=== PATIENT | male | born 1950 | race African-American/Black ===

== ENCOUNTER → 2016-06-29 | Outpatient (CLI) | payer BC ==
[~2016-06-29] MED LIST: ASPCH81X PO; CLOP1TAB15 PO; CYM/30 PO; DILT-113 PO; DUTA0.5C PO; EPLE25TA3 PO; EZET10TA63 PO; FOLI1TAB7 PO; FRS/40 PO; INSDGI SC; ISOS120T5 PO; LACT10SO17 PO; LIDO2SOL17 EXT; LISI-461 PO; LORA-741 PO; LSN10 PO; MAGNESIUM PO; METO50TA16 PO; MULT-506 PO; NITRSPR6 SL; OMEG10007 PO; PANT40TA PO; POTA20TA16 PO; RIFA550T2 PO; TAMS0.4C38 PO; WARF2TAB8 PO; WARF5TAB7 PO
[2016-06-29 12:51] LABS: CHOLESTEROL/HDL RATIO 3.2
== END | disposition home or self-care (01) ==
LOC: C.LAB 10:59
PROVIDERS: ATTEND Internal Medicine Cardiovascular Disease
DX: E78.00 Pure hypercholesterolemia, unspecified (principal)

== ENCOUNTER 2016-07-01 11:45 | Inpatient (IN) | payer BC, OTHER ==
[~2016-07-01] VITALS: Ht 182.9 cm; Wt 141.2 kg
[~2016-07-01 11:45] MED LIST changes: -LACT10SO17 PO; -LISI-461 PO; -LSN10 PO; -RIFA550T2 PO
[2016-07-01] MEDS ORDERED: ASPIRIN 81 MG CHEW PO STA (12:06)
--- NOTE | 2016-07-01 12:15 | EMERGENCY ROOM VISIT NOTE ---
History Report prepared by [place]: Ileana Guzman Under the Supervision of: Dr. Liz Art M.D. First contact with patient: 11:56 Chief Complaint: CHEST PAIN Stated Complaint: CHEST AND LEFT ARM PAIN History of Present Illness The patient is a 65 year old male who presents to the Emergency Room with complaints of intermittent left sided chest pain that began three days ago. He currently rates his discomfort as a 2/10 in severity. The patient states that he has been diagnosed with cirrhosis of the liver and encephalopathy, but denies it being from drinking. He states that he has had diffuse abdominal discomfort which he attributes to his liver disease. The patient states that three days ago when he developed the left chest pain and left arm pain, he also attributed it to his liver disease, but notes that today his chest discomfort worsened. 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 He states that they referred him to the emergency department for further evaluation and care. The patient states that he has been experiencing nausea and vomiting with the pain, but denies any shortness of breath. He additionally notes that his pain radiates to his back. The patient notes a history of diabetes and atrial fibrillation, noting that he is on Coumadin. He denies any history of high cholesterol or hepatitis. The patient denies any shortness of breath or fever, and denies his pain coming on with exertion. He denies being a smoker. The patient denies taking any aspirin today. He states that he has an appointment about being placed on a liver transplant list. Source of History: patient Onset: three days ago Position: chest (left) Symptom Intensity: 2/10 Timing: intermittent Associated Symptoms: + abdominal pain, + back pain, + nausea, + vomiting, No SOB Note: Associated Symptoms: left arm pain Review of Systems See HPI for pertinent positives & negatives. A total of 10 systems reviewed and were otherwise negative. 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 (10) Postoperative wound infection Family History Stroke FATHER MOTHER Social History Smoking Status: Former Smoker Alcohol Use: none Marital Status: Occupation Status: employed Current/Historical Medications Scheduled Aspirin (Aspirin Chewable), 81 MG PO QAM Clopidogrel (Plavix), 75 MG PO QAM Diltiazem Hcl Ext Rel (Tiazac), 180 MG PO QAM Duloxetine Hcl (Cymbalta), 30 MG PO QAM Dutasteride (Avodart), 0.5 MG PO HS Eplerenone (Eplerenone), 1 TAB PO QAM Ezetimibe (Zetia), 10 MG PO HS Fish Oil ([place]-3), 1 CAP PO BID Folic Acid (Folvite), 1 MG PO DAILY AFTERNOON Furosemide (Lasix), 40 MG PO QAM Insulin Glargine (Lantus), 10 UNITS SC HS Isosorbide Mononitrate Ext Rel (Imdur Ext Rel), 120 MG PO QAM Lactulose (Chronulac), 15 ML PO DAILY Lisinopril (Zestril), 10 MG PO QAM Lisinopril (Lisinopril), 10 MG PO DAILY Metoprolol Tartrate (Lopressor) (Lopressor), 50 MG PO TID Multivitamin (Multivitamin), 1 TAB PO QAM Pantoprazole (Protonix), 40 MG PO QAM Potassium Ext Rel (Klor-Con), 20 MEQ PO QAM Rifaximin (Xifaxan), 550 MG PO BID Tamsulosin Hcl (Flomax), 0.4 MG PO HS Warfarin Sod (Jantoven), 7.5 MG PO 4XWK Warfarin Sod (Jantoven), 10 MG PO 3XWK [Magnesium], 1 TAB PO DAILY AFTERNOON Scheduled PRN Lidocaine Viscous 2% Soln (Viscous Lidocaine 2% Soln), 1 DOSE EXT QID PRN for Pain Lorazepam (Ativan), 0.5 MG PO BID PRN for Anxiety Nitroglycerin (Nitrolingual 60 [place]), 1 SPRAY SL DIRECTED PRN for Chest Pain Allergies Coded Allergies: Simvastatin (Verified Adverse Reaction, Intermediate, GI UPSET- OK WITH LIPITOR, 07/01/16) Spironolactone (Verified Adverse Reaction, Mild, NIPPLES HURT, 07/01/16) Pioglitazone (Verified Adverse Reaction, Unknown, DOESN'T REMEMBER, ) Physical Exam Vital Signs Date Time Temp Pulse Resp B/P Pulse Ox O2 Delivery O2 Flow Rate FiO2 07/01/16 14:55 52 23 96 07/01/16 14:50 53 24 97 07/01/16 14:45 58 19 97 07/01/16 14:43 58 20 161/88 96 Room Air 07/01/16 14:41 161/88 07/01/16 14:40 58 22 96 07/01/16 14:30 55 16 97 07/01/16 14:29 195/103 07/01/16 14:25 52 13 96 07/01/16 14:25 97 Room Air 07/01/16 14:20 50 29 97 07/01/16 14:15 58 20 07/01/16 14:10 52 13 96 07/01/16 14:05 52 16 96 07/01/16 14:00 52 13 96 07/01/16 13:59 167/78 07/01/16 13:55 50 16 175/86 97 Room Air 07/01/16 13:55 52 14 97 07/01/16 13:54 175/86 07/01/16 13:40 50 21 99 07/01/16 13:35 49 13 07/01/16 13:30 51 12 92 07/01/16 13:25 48 15 97 07/01/16 13:20 52 16 96 07/01/16 13:15 47 12 97 07/01/16 13:10 50 13 95 07/01/16 12:44 50 07/01/16 12:40 46 13 97 07/01/16 12:39 174/100 07/01/16 12:37 51 15 193/99 96 Room Air 174/100 07/01/16 12:35 46 12 193/99 07/01/16 12:34 96 Room Air 07/01/16 11:59 176/88 07/01/16 11:48 36.8 60 18 209/117 96 Room Air Physical Exam Vital signs reviewed. General: Obese. Well-appearing male, in no significant distress. HEENT: No scleral icterus, PERRLA, neck supple. Atraumatic. Cardiovascular: Irregular rate controlled and rhythm, no extra sounds. Pulmonary: Clear to auscultation bilaterally, normal work of breathing. Abdomen: Soft, nontender, nondistended, positive bowel sounds. Musculoskeletal: Atraumatic, no peripheral edema. Neurologic: Patient awake alert and oriented x 3, full strength in all 4 extremities. Cranial nerves 2 through 12 grossly intact. Skin: Warm, dry, no rash Medical Decision & Procedures ER Provider Diagnostic Interpretation: X-ray results as stated below per my interpretation and radiologist interpretation. Other radiology results as stated below per my review and radiologist interpretation: CHEST ONE VIEW PORTABLE CLINICAL HISTORY: Atypical chest pain. COMPARISON STUDY: 06/24/2015 FINDINGS: The study is limited from a technical standpoint. The heart is enlarged. There are postsurgical changes of a midline sternotomy. There is prominence the upper lobe vessels suggesting pulmonary venous hypertension.[ There is no focal pulmonary consolidation. No pleural effusions are visualized. IMPRESSION: Cardiomegaly and suspected pulmonary venous hypertension. No evidence of focal pulmonary consolidation Electronically signed by: Oscar Sheppard M.D. 07/01/2016 12:20 PM Dictated Date/Time: 07/01/2016 12:19 PM CHEST CTA for PULMONARY ARTERIES CT DOSE: 616.56 mGy.cm HISTORY: Atypical chest pain. TECHNIQUE: Multiaxial CT images of the chest were performed following the intravenous administration of contrast to evaluate the pulmonary arteries. Maximal intensity projection images were also obtained. COMPARISON STUDY: Chest 07/01/2016. FINDINGS: The heart remains enlarged. No pleural or pericardial effusions. Normal caliber thoracic aorta. There is no contrast within the aorta to evaluate for a dissection. Nondiagnostic evaluation of the bilateral lower lobe subsegmental pulmonary arteries due to the poor opacification motion artifact. Otherwise, the remaining pulmonary arteries show no filling defects to suggest pulmonary embolus. Nodular and atrophic liver consistent with cirrhosis. Stable 2.1 cm lesion within the right hepatic dome best in image 38 of 116. The visualized spleen and adrenal glands are unremarkable. There is a partially visualized left renal cyst. No mediastinal or hilar lymphadenopathy. Poststernotomy changes. No pneumothorax. The central airways are patent. A 3 mm nodule within the left lung apex on image 102. A 4 mm nodule within the lingula on image 39. No focal lung consolidations to suggest pneumonia. Bibasilar linear densities favor mild subsegmental atelectasis. IMPRESSION: 1. No evidence for pulmonary embolus with limitations as described above. 2. Cardiomegaly. 3. Cirrhosis. 4. A total of 2 subcentimeter indeterminate pulmonary nodules within the left upper lobe with the largest measuring 4 mm. Please refer to the chart below for recommended follow-up. Please refer to below summary of Fleischner criteria recommendations for follow-up of incidental CT nodules (Bobby Rao, Guidelines for management of small pulmonary nodules detected on CT scans: A statement from the Fleischner Society, Radiology 237: [phone].) Low Risk Patient: Minimal or no smoking or other known risk factors for malignancy <=4 mm: No follow-up needed. >4-6 mm: Initial follow-up CT at 12 months; if unchanged, no further follow-up. >6-8 mm: Initial follow-up CT at 6-12 months then at 18-24 months if no change. >8 mm: Follow-up CT at \R\3, 9, 24 months, or PET and/or biopsy. High Risk Patient: History of smoking or other known risk factors <=4 mm: Follow-up at 12 months; if unchanged, no further follow-up. >4-6 mm: Initial follow-up CT at 6-12 months then at 18-24 months if no change. >6-8 mm: Initial follow-up CT at 3-6 months then at 9-12 and 24 months if no change. >8 mm: Same as low risk patient. Note: Nodule size measured as average of length and width. Ground glass or partly solid nodules may require longer follow-up to exclude indolent adenocarcinoma. Electronically signed by: Mane Dsouza M.D. 07/01/2016 1:37 PM Dictated Date/Time: 07/01/2016 1:18 PM Laboratory Results Test 07/01/16 11:55 07/01/16 12:12 Hepatitis C Antibody Screen NEG (NEG) Bedside D-Dimer > 450 ng/mlFEU (0-450) Bedside Troponin I 0.010 ng/ml (0-0.045) Laboratory results per my review. Medications Administered Medications (Trade) Dose Ordered Sig/Beata Route Start Time Stop Time Status Last Admin Dose Admin Aspirin (Aspirin Chew) 324 mg NOW STAT PO 07/01/16 12:06 07/01/16 12:08 DC 07/01/16 12:17 324 MG Hydralazine HCl (HydrALAZINE INJ) 10 mg NOW STAT IV. 07/01/16 13:44 07/01/16 13:45 DC 07/01/16 14:05 10 MG ECG Indication: chest pain Rate (beats per minute): 50 Rhythm: atrial fibrillation Findings: no acute ischemic change, no ectopy ED Course 1200: Past medical records reviewed. The patient was evaluated in room A9B. A complete history and physical examination was performed. 1206: Ordered Aspirin 324 mg PO. 1344: Ordered Hydralazine HCl 10 mg IV. 1345: I reevaluated the patient and he is resting comfortably. I discussed the exam findings with him and I discussed the treatment plan. He verbalized complete understanding and agreement. He will be evaluated for further treatment. 1352: I discussed the patient's case with GIA Ovalle. He is going to evaluate the patient for further treatment. 1400: Per Dr. Shaw, he is currently in Atrial Flutter. Medical Decision DDX:Acute coronary syndrome, pulmonary embolus, aortic dissection, musculoskeletal pain, pneumonia, pleural effusion, pneumothorax This pt was evaluated and appeared to be in no distress. IV access was obtained and lab work was drawn. PT was medicated with aspirin 324 mg po and IV hydralazine for hypertension. EKG reveals no acute ischemia, rate controlled atrial flutter. Lab work reveals a negative troponin but a positive d-dimer. CT chest was ordered and is negative for PE. Given pt's HTN, CP and extensive medical history pt was evaluated by the hospitalist service for further management. Consults Time Called: 1344 Consulting Physician: GIA Ovalle Returned Call: 1352 I discussed the patient's case with GIA Ovalle. He is going to evaluate the patient for further treatment. Impression Primary Impression: Constricting chest pain often radiating down left upper extremity Scribe Attestation The scribe's documentation has been prepared under my direction and personally reviewed by me in its entirety. I confirm that the note above accurately reflects all work, treatment, procedures, and medical decision making performed by me. Departure Information Dispostion Being Evaluated By Hospitalist Prescriptions Lisinopril (Lisinopril) 10 Mg Tab 10 MG PO DAILY for 90 Days, #90 TAB Prov: Ervin Carey MD 07/02/16 Lisinopril (Zestril) 10 Mg Tab 10 MG PO QAM for 30 Days, #30 TAB Prov: Ervin Carey MD 07/02/16 Referrals Rona Dominguez DO (PCP)
[2016-07-01 12:20] LABS: MEAN CORPUSCULAR HGB CONC 34.5 g/dl (32-36)
[2016-07-01 12:22] LABS: HEMATOCRIT 41.7 % (42-52); MEAN CELL VOLUME 74.1 fL (80-100); MEAN CORPUSCULAR HEMOGLOBIN 25.6 pg (25-34); RED BLOOD COUNT 5.63 M/uL (4.7-6.1); WHITE BLOOD COUNT 3.82 K/uL (4.8-10.8)
--- NOTE | 2016-07-01 12:22 | DIAGNOSTIC IMAGING REPORT ---
CHEST ONE VIEW PORTABLE CLINICAL HISTORY: Atypical chest pain. COMPARISON STUDY: 06/24/2015 FINDINGS: The study is limited from a technical standpoint. The heart is enlarged. There are postsurgical changes of a midline sternotomy. There is prominence the upper lobe vessels suggesting pulmonary venous hypertension.[ There is no focal pulmonary consolidation. No pleural effusions are visualized. IMPRESSION: Cardiomegaly and suspected pulmonary venous hypertension. No evidence of focal pulmonary consolidation Electronically signed by: Oscar Sheppard M.D. 07/01/2016 12:20 PM Dictated Date/Time: 07/01/2016 12:19 PM
[2016-07-01 12:31] LABS: BUN/CREATININE RATIO 8.6 (10-20); CALCIUM 8.9 mg/dl (8.5-10.1); CREATININE 0.86 mg/dl (0.60-1.40); MAGNESIUM 1.9 mg/dl (1.8-2.4)
[2016-07-01 12:33] LABS: INR 2.3 (0.9-1.1); PARTIAL THROMBOPLASTIN RATIO 1.4; PROTHROMBIN TIME (PATIENT) 25.2 SECONDS (9.0-12.0)
[2016-07-01 12:36] LABS: CKMB/CK RATIO 0.4 (0-3.0)
[2016-07-01] MEDS ORDERED: OPTIRAY 320 IV PRN (12:45)
[2016-07-01 12:58] LABS: BASO % 0.3 %; BASO ABS # 0.01 K/uL (0-0.2); COMPLETE YES; EOS % 2.4 %; LYMPH % 48.7 %; LYMPH ABS # 1.86 K/uL (1.2-3.4); MONO % 8.1 %; NEUT % 40.5 %; PLATELET COUNT 105 K/uL (130-400)
[2016-07-01 12:59] LABS: PLT ESTIMATE DECREASED
[2016-07-01] MEDS ORDERED: LACT10SO17 PO (13:31)
[2016-07-01] MEDS ORDERED: RIFA550T2 PO (13:32)
--- NOTE | 2016-07-01 13:39 | DIAGNOSTIC IMAGING REPORT ---
CHEST CTA for PULMONARY ARTERIES CT DOSE: 616.56 mGy.cm HISTORY: Atypical chest pain. TECHNIQUE: Multiaxial CT images of the chest were performed following the intravenous administration of contrast to evaluate the pulmonary arteries. Maximal intensity projection images were also obtained. COMPARISON STUDY: Chest 07/01/2016. FINDINGS: The heart remains enlarged. No pleural or pericardial effusions. Normal caliber thoracic aorta. There is no contrast within the aorta to evaluate for a dissection. Nondiagnostic evaluation of the bilateral lower lobe subsegmental pulmonary arteries due to the poor opacification motion artifact. Otherwise, the remaining pulmonary arteries show no filling defects to suggest pulmonary embolus. Nodular and atrophic liver consistent with cirrhosis. Stable 2.1 cm lesion within the right hepatic dome best in image 38 of 116. The visualized spleen and adrenal glands are unremarkable. There is a partially visualized left renal cyst. No mediastinal or hilar lymphadenopathy. Poststernotomy changes. No pneumothorax. The central airways are patent. A 3 mm nodule within the left lung apex on image 102. A 4 mm nodule within the lingula on image 39. No focal lung consolidations to suggest pneumonia. Bibasilar linear densities favor mild subsegmental atelectasis. IMPRESSION: 1. No evidence for pulmonary embolus with limitations as described above. 2. Cardiomegaly. 3. Cirrhosis. 4. A total of 2 subcentimeter indeterminate pulmonary nodules within the left upper lobe with the largest measuring 4 mm. Please refer to the chart below for recommended follow-up. Please refer to below summary of Fleischner criteria recommendations for follow-up of incidental CT nodules (Bobby Rao, Guidelines for management of small pulmonary nodules detected on CT scans: A statement from the Fleischner Society, Radiology 237: [id number].) Low Risk Patient: Minimal or no smoking or other known risk factors for malignancy <=4 mm: No follow-up needed. >4-6 mm: Initial follow-up CT at 12 months; if unchanged, no further follow-up. >6-8 mm: Initial follow-up CT at 6-12 months then at 18-24 months if no change. >8 mm: Follow-up CT at \R\3, 9, 24 months, or PET and/or biopsy. High Risk Patient: History of smoking or other known risk factors <=4 mm: Follow-up at 12 months; if unchanged, no further follow-up. >4-6 mm: Initial follow-up CT at 6-12 months then at 18-24 months if no change. >6-8 mm: Initial follow-up CT at 3-6 months then at 9-12 and 24 months if no change. >8 mm: Same as low risk patient. Note: Nodule size measured as average of length and width. Ground glass or partly solid nodules may require longer follow-up to exclude indolent adenocarcinoma. Electronically signed by: Mane Dsouza M.D. 07/01/2016 1:37 PM Dictated Date/Time: 07/01/2016 1:18 PM
[2016-07-01] MEDS ORDERED: HydrALAZINE HCL 20 MG/ML VIAL IV. STA (13:44)
[2016-07-01 14:25] VITALS: O2SAT 97; Ht 182.9 cm; Wt 141.2 kg
[2016-07-01] MEDS ORDERED: MoRPHine SULFATE 4 MG/ML 1 ML CARP\\VIAL IV PRN (14:45)
[2016-07-01] MEDS ORDERED: DiphenhydrAMINE HCL 50 MG/ML VIAL IV PRN (14:45)
[2016-07-01] MEDS ORDERED: GLUCOSE 40% GEL 15 GM TUBE PO PRN (14:45)
[2016-07-01] MEDS ORDERED: DEXTROSE 50% 50 ML SYR IV PRN (14:45)
[2016-07-01] MEDS ORDERED: NITROGLYCERIN SL SPR 4.9 GM BTL SL PRN (14:45)
[2016-07-01] MEDS ORDERED: BISACODYL 10 MG SUPP PR PRN (14:45)
[2016-07-01] MEDS ORDERED: GLUCAGON FOR INJ 1 MG VIAL SQ PRN (14:45)
[2016-07-01] MEDS ORDERED: LIDOCAINE HCL 2% VISC SOLN 20 ML UDC EXT PRN (14:45)
[2016-07-01] MEDS ORDERED: MoRPHine SULFATE 2 MG/ML CARP IV PRN (14:45)
[2016-07-01] MEDS ORDERED: ACETAMINOPHEN 325 MG TAB PO PRN ×2 (14:45)
[2016-07-01] MEDS ORDERED: ZOLPIDEM TARTRATE 5 MG TAB PO PRN ×2 (14:45)
[2016-07-01] MEDS ORDERED: ONDANSETRON INJ 2 MG/ML 2 ML VIAL IV PRN (14:45)
[2016-07-01] MEDS ORDERED: LORAZEPAM 0.5 MG TAB PO PRN (14:45)
[2016-07-01] MEDS ORDERED: ALUMINUM/MAGNESIUM/SIMETH (MAALOX MAX) 30 ML UDC PO PRN (14:45)
[2016-07-01] MEDS ORDERED: GLUCOSE 10 TABS/TUBE PO PRN (14:45)
[2016-07-01] MEDS ORDERED: MAGNESIUM HYDROXIDE SUSP 30 ML UDC PO PRN (14:45)
[2016-07-01] MEDS ORDERED: PROMETHAZINE HCL INJ 12.5 MG in SODIUM CHLORIDE 0.9% 50ML 50 ML IV PRN (14:45)
[2016-07-01] MEDS ORDERED: LORAZEPAM 2 MG/ML 1 ML VIAL IV PRN (14:45)
[2016-07-01] MEDS ORDERED: NITROGLYCERIN 0.4 MG SL PER TAB CHARGE SL PRN (14:45)
[2016-07-01] MEDS ORDERED: LORAZEPAM INJ 0.5 MG in SYRINGE 0.75 ML IV PRN (15:00)
[2016-07-01] MEDS ORDERED: WARFARIN SOD 7.5 MG TAB PO SCH (16:00)
--- NOTE | 2016-07-01 16:07 | History and Physical ---
History & Physical Date & Time of Service: Jul 01, 2016 at 15:51 Chief Complaint: Chest And Left Arm Pain Primary Care Physician: Rona Dominguez DO History of Present Illness Source: patient, spouse The patient is is a 65-year-old male who presents emergency department with complaints of intermittent left-sided chest pain radiating toward the left axilla that began about 3 days prior to arrival. He presents to the emergency department today after seeing his PCP for worsening chest discomfort today and was advised to come to the emergency department for assessment. 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 He has diabetes as well as the sugars of been recently under good control. He is on a waiting list to be seen by [facility] hepatology. Past Medical/Surgical History Medical Problems: (1) Anemia Status: Chronic (2) Diabetes Status: Chronic (3) H/O: Two cardiac bypasses Status: Chronic (4) HTN (hypertension) Status: Chronic (5) Hyperlipidemia Status: Chronic Family History Stroke FATHER MOTHER Social History Smoking Status: Former Smoker Smokeless Tobacco Use: No Alcohol Use: none Drug Use: none Marital Status: Housing status: lives with family Occupational Status: employed Immunizations History of Influenza Vaccine: Yes Influenza Vaccine Date: May 17, 2013 History of Tetanus Vaccine?: utd History of Pneumococcal: Yes Pneumococcal Date: May 17, 2013 History of Hepatitis B Vaccine: Unknown Multi-Drug Resistant Organisms History of MDRO: No Allergies Coded Allergies: Simvastatin (Verified Adverse Reaction, Intermediate, GI UPSET- OK WITH LIPITOR, 07/01/16) Spironolactone (Verified Adverse Reaction, Mild, NIPPLES HURT, 07/01/16) Pioglitazone (Verified Adverse Reaction, Unknown, DOESN'T REMEMBER, ) Home Medications Scheduled Aspirin (Aspirin Chewable), 81 MG PO QAM Clopidogrel (Plavix), 75 MG PO QAM Diltiazem Hcl Ext Rel (Tiazac), 180 MG PO QAM Duloxetine Hcl (Cymbalta), 30 MG PO QAM Dutasteride (Avodart), 0.5 MG PO HS Eplerenone (Eplerenone), 1 TAB PO QAM Ezetimibe (Zetia), 10 MG PO HS Fish Oil ([place]-3), 1 CAP PO BID Folic Acid (Folvite), 1 MG PO DAILY AFTERNOON Furosemide (Lasix), 40 MG PO QAM Insulin Glargine (Lantus), 10 UNITS SC HS Isosorbide Mononitrate Ext Rel (Imdur Ext Rel), 120 MG PO QAM Lactulose (Chronulac), 15 ML PO DAILY Metoprolol Tartrate (Lopressor) (Lopressor), 50 MG PO TID Multivitamin (Multivitamin), 1 TAB PO QAM Pantoprazole (Protonix), 40 MG PO QAM Potassium Ext Rel (Klor-Con), 20 MEQ PO QAM Rifaximin (Xifaxan), 550 MG PO BID Tamsulosin Hcl (Flomax), 0.4 MG PO HS Warfarin Sod (Jantoven), 7.5 MG PO 4XWK Warfarin Sod (Jantoven), 10 MG PO 3XWK [Magnesium], 1 TAB PO DAILY AFTERNOON Scheduled PRN Lidocaine Viscous 2% Soln (Viscous Lidocaine 2% Soln), 1 DOSE EXT QID PRN for Pain Lorazepam (Ativan), 0.5 MG PO BID PRN for Anxiety Nitroglycerin (Nitrolingual 60 Wilson), 1 SPRAY SL DIRECTED PRN for Chest Pain Review of Systems The patient denies palpitations, cough, lower extremity swelling, vision change , hearing change, sore throat, fevers, chills, sweats, blood in urine or stool , dysuria, urinary frequency or urgency, lightheadedness, dizziness, headache, memory loss, rash, abnormal bruising or bleeding, imbalance, focal weakness, numbness or tingling in arms, neck pain, night sweats, or allergy symptoms. The review of systems is otherwise negative other than for that already noted above, and at least 10 systems have been reviewed. Physical Exam Vital Signs Date Time Temp Pulse Resp B/P Pulse Ox O2 Delivery O2 Flow Rate FiO2 07/01/16 15:00 69 19 97 Room Air 07/01/16 14:59 182/96 07/01/16 14:55 52 23 96 07/01/16 14:50 53 24 97 07/01/16 14:45 58 19 97 07/01/16 14:43 58 20 161/88 96 Room Air 07/01/16 14:41 161/88 07/01/16 14:40 58 22 96 07/01/16 14:30 55 16 97 07/01/16 14:29 195/103 07/01/16 14:25 52 13 96 07/01/16 14:25 97 Room Air 07/01/16 14:20 50 29 97 07/01/16 14:15 58 20 07/01/16 14:10 52 13 96 07/01/16 14:05 52 16 96 07/01/16 14:00 52 13 96 07/01/16 13:59 167/78 07/01/16 13:55 50 16 175/86 97 Room Air 07/01/16 13:55 52 14 97 07/01/16 13:54 175/86 07/01/16 13:40 50 21 99 07/01/16 13:35 49 13 07/01/16 13:30 51 12 92 07/01/16 13:25 48 15 97 07/01/16 13:20 52 16 96 07/01/16 13:15 47 12 97 07/01/16 13:10 50 13 95 07/01/16 12:44 50 07/01/16 12:40 46 13 97 07/01/16 12:39 174/100 07/01/16 12:37 51 15 193/99 96 Room Air 174/100 07/01/16 12:35 46 12 193/99 07/01/16 12:34 96 Room Air 07/01/16 11:59 176/88 07/01/16 11:48 36.8 60 18 209/117 96 Room Air The patient is awake, well-developed and adequately nourished, alert and oriented 3, normocephalic and atraumatic, lying in bed and in no acute distress. HEENT--PERRL, EOMI, mucous membranes moist, and oropharynx normal. Neck--supple, no JVD or bruits, thyroid normal, trachea midline, no adenopathy. Heart--normal S1 and S2, no extra beats, no murmurs, rubs or gallops. Lungs--a few crackles at the bases bilaterally no respiratory distress, no accessory muscle use. Abdomen--normal bowel sounds and soft, nontender and nondistended, no hernias or masses, no organomegaly. Extremities--no cyanosis, clubbing or edema. There are good distal pulses b/l. Dermatologic--normal skin turgor, normal color, warm and dry, no abnormal lymph nodes, no rash. Neurologic--cranial nerves II through XII grossly intact, motor and sensory examination normal. Rheumatologic--joints are nontender. Psychiatric--normal affect. Diagnostics Laboratory Results Results Past 24 Hours Test 07/01/16 11:55 07/01/16 12:12 07/01/16 14:34 07/01/16 14:41 Range/Units White Blood Count 3.82 4.8-10.8 K/uL Red Blood Count 5.63 4.7-6.1 M/uL Hemoglobin 14.4 14.0-18.0 g/dL Hematocrit 41.7 42-52 % Mean Corpuscular Volume 74.1 80-100 fL Mean Corpuscular Hemoglobin 25.6 25-34 pg Mean Corpuscular Hemoglobin Concent 34.5 32-36 g/dl Platelet Count 105 130-400 K/uL Neutrophils (%) (Auto) 40.5 % Lymphocytes (%) (Auto) 48.7 % Monocytes (%) (Auto) 8.1 % Eosinophils (%) (Auto) 2.4 % Basophils (%) (Auto) 0.3 % Neutrophils # (Auto) 1.55 1.4-6.5 K/uL Lymphocytes # (Auto) 1.86 1.2-3.4 K/uL Monocytes # (Auto) 0.31 0.11-0.59 K/uL Eosinophils # (Auto) 0.09 0-0.5 K/uL Basophils # (Auto) 0.01 0-0.2 K/uL RDW Standard Deviation 41.4 36.4-46.3 fL RDW Coefficient of Variation 15.4 11.5-14.5 % Immature Granulocyte % (Auto) 0.0 % Immature Granulocyte # (Auto) 0.00 0.00-0.02 K/uL Platelet Estimate DECREASED Prothrombin Time 25.2 9.0-12.0 SECONDS Prothromb Time International Ratio 2.3 0.9-1.1 Activated Partial Thromboplast Time 37.4 21.0-31.0 SECONDS Partial Thromboplastin Ratio 1.4 Sodium Level 144 136-145 mmol/L Potassium Level 4.0 3.5-5.1 mmol/L Chloride Level 108 98-107 mmol/L Carbon Dioxide Level 29 21-32 mmol/L Anion Gap 7.0 3-11 mmol/L Blood Urea Nitrogen 7 7-18 mg/dl Creatinine 0.86 0.60-1.40 mg/dl Est Creatinine Clear Calc Drug Dose 130.6 ml/min Estimated GFR () 107.0 Estimated GFR (Non- 92.3 BUN/Creatinine Ratio 8.6 10-20 Random Glucose 89 70-99 mg/dl Calcium Level 8.9 8.5-10.1 mg/dl Magnesium Level 1.9 1.8-2.4 mg/dl Total Bilirubin 0.6 0.2-1 mg/dl Direct Bilirubin 0.2 0-0.2 mg/dl Aspartate Amino Transf (AST/SGOT) 94 15-37 U/L Alanine Aminotransferase (ALT/SGPT) 71 12-78 U/L Alkaline Phosphatase 249 45-117 U/L Total Creatine Kinase 424 39-308 U/L Creatine Kinase MB 1.7 0.5-3.6 ng/ml Creatine Kinase MB Ratio 0.4 0-3.0 Total Protein 7.7 6.4-8.2 gm/dl Albumin 3.0 3.4-5.0 gm/dl Bedside D-Dimer > 450 0-450 ng/mlFEU Bedside Troponin I 0.010 0-0.045 ng/ml Diagnostic Radiology Patient Name: RAMY CHARLES Unit Number: [id number] Dictated: 07/01/161218 Transcribed: 07/01/161218 ARG Printed Date/Time: [~ rep prt dt]/[~ rep prt tm] [~ rep ct labl] - [~ rep ct ivnm] [facility] Radiology Department [place], [place] [id number] Dictated: 07/01/161218 Transcribed: 07/01/161218 ARG Printed Date/Time: [~ rep prt dt]/[~ rep prt tm] [~ rep ct labl] - [~ rep ct ivnm] DIAGNOSTIC IMAGING [~ rep ct add3]] CHEST ONE VIEW PORTABLE CLINICAL HISTORY: Atypical chest pain. COMPARISON STUDY: 06/24/2015 FINDINGS: The study is limited from a technical standpoint. The heart is enlarged. There are postsurgical changes of a midline sternotomy. There is prominence the upper lobe vessels suggesting pulmonary venous hypertension.[ There is no focal pulmonary consolidation. No pleural effusions are visualized. IMPRESSION: Cardiomegaly and suspected pulmonary venous hypertension. No evidence of focal pulmonary consolidation Electronically signed by: Oscar Sheppard M.D. 07/01/2016 12:20 PM Dictated Date/Time: 07/01/2016 12:19 PM The status of this report is Signed. Draft = Not yet reviewed or approved by Radiologist. Signed = Reviewed and approved by Radiologist. <AttendingPhy></AttendingPhy> <FamilyPhy>Rona Dominguez DO</FamilyPhy> < PrimaryPhy>Rona Dominguez DO</PrimaryPhy> <UnitNumber>[id number]</ UnitNumber> <VisitNumber>[id number]</VisitNumber> <PatientName>RAMY CHARLES< /PatientName> <DateOfBirth>1950</DateOfBirth> <Location>[facility]</Location> < ServiceDate>07/01/16</ServiceDate> <MNE>ESINDI</MNE> <OrderingPhy>Liz Art M.D.</OrderingPhy> <OrderingPhyMNE>f rep ord dr goodwin</OrderingPhyMNE> < DictatingPhyMNE>f rep dict dr goodwin</DictatingPhyMNE> <CCListMNE>f rep ct tashiae</ CCListMNE> <AdmittingPhyMNE>f pt admit dr goodwin</AdmittingPhyMNE> <AttendingPhyMNE >f pt attend dr goodwin</AttendingPhyMNE> <ConsultingPhyMNE>f pt consult dr goodwin</ConsultingPhyMNE> <FamilyPhyMNE>f pt fam dr goodwin</FamilyPhyMNE> <OtherPhyMNE>f pt other dr goodwin</OtherPhyMNE> < PrimaryPhyMNE>f pt prim care dr goodwin</PrimaryPhyMNE> <ReferringPhyMNE>f pt referring dr goodwin</ReferringPhyMNE> Patient Name: NITHIN CHARLESORD Unit Number: [id number] Dictated: 07/01/161317 Transcribed: 07/01/161317 PA Printed Date/Time: [~ rep prt dt]/[~ rep prt tm] [~ rep ct labl] - [~ rep ct ivnm] [facility] [place] [address] Dictated: 07/01/161317 Transcribed: 07/01/161317 PA Printed Date/Time: [~ rep prt dt]/[~ rep prt tm] [~ rep ct labl] - [~ rep ct ivnm] [~ rep ct add3]] CHEST CTA for PULMONARY ARTERIES CT DOSE: 616.56 mGy.cm HISTORY: Atypical chest pain. TECHNIQUE: Multiaxial CT images of the chest were performed following the intravenous administration of contrast to evaluate the pulmonary arteries. Maximal intensity projection images were also obtained. COMPARISON STUDY: Chest 07/01/2016. FINDINGS: The heart remains enlarged. No pleural or pericardial effusions. Normal caliber thoracic aorta. There is no contrast within the aorta to evaluate for a dissection. Nondiagnostic evaluation of the bilateral lower lobe subsegmental pulmonary arteries due to the poor opacification motion artifact. Otherwise, the remaining pulmonary arteries show no filling defects to suggest pulmonary embolus. Nodular and atrophic liver consistent with cirrhosis. Stable 2.1 cm lesion within the right hepatic dome best in image 38 of 116. The visualized spleen and adrenal glands are unremarkable. There is a partially visualized left renal cyst. No mediastinal or hilar lymphadenopathy. Poststernotomy changes. No pneumothorax. The central airways are patent. A 3 mm nodule within the left lung apex on image 102. A 4 mm nodule within the lingula on image 39. No focal lung consolidations to suggest pneumonia. Bibasilar linear densities favor mild subsegmental atelectasis. IMPRESSION: 1. No evidence for pulmonary embolus with limitations as described above. 2. Cardiomegaly. 3. Cirrhosis. 4. A total of 2 subcentimeter indeterminate pulmonary nodules within the left upper lobe with the largest measuring 4 mm. Please refer to the chart below for recommended follow-up. Please refer to below summary of Fleischner criteria recommendations for follow-up of incidental CT nodules (Bobby Rao, Guidelines for management of small pulmonary nodules detected on CT scans: A statement from the Fleischner Society, Radiology 237: [phone].) Low Risk Patient: Minimal or no smoking or other known risk factors for malignancy <=4 mm: No follow-up needed. >4-6 mm: Initial follow-up CT at 12 months; if unchanged, no further follow-up. >6-8 mm: Initial follow-up CT at 6-12 months then at 18-24 months if no change. >8 mm: Follow-up CT at \R\3, 9, 24 months, or PET and/or biopsy. High Risk Patient: History of smoking or other known risk factors <=4 mm: Follow-up at 12 months; if unchanged, no further follow-up. >4-6 mm: Initial follow-up CT at 6-12 months then at 18-24 months if no change. >6-8 mm: Initial follow-up CT at 3-6 months then at 9-12 and 24 months if no change. >8 mm: Same as low risk patient. Note: Nodule size measured as average of length and width. Ground glass or partly solid nodules may require longer follow-up to exclude indolent adenocarcinoma. Electronically signed by: Mane Dsouza M.D. 07/01/2016 1:37 PM Dictated Date/Time: 07/01/2016 1:18 PM The status of this report is Signed. Draft = Not yet reviewed or approved by Radiologist. Signed = Reviewed and approved by Radiologist. <AttendingPhy></AttendingPhy> <FamilyPhy>Rona Dominguez DO</FamilyPhy> < PrimaryPhy>Rona Dominguez DO</PrimaryPhy> <UnitNumber>[id number]</ UnitNumber> <VisitNumber>[id number]</VisitNumber> <PatientName>ANGELINE CHARLESIFFORD< /PatientName> <DateOfBirth>1950</DateOfBirth> <Location>[facility]</Location> < ServiceDate>07/01/16</ServiceDate> <MNE>ESINDI</MNE> <OrderingPhy>Liz Art M.D.</OrderingPhy> <OrderingPhyMNE>f rep ord dr goodwin</OrderingPhyMNE> < DictatingPhyMNE>f rep dict dr goodwin</DictatingPhyMNE> <CCListMNE>f rep ct christa</ CCListMNE> <AdmittingPhyMNE>f pt admit dr goodwin</AdmittingPhyMNE> <AttendingPhyMNE >f pt attend dr goodwin</AttendingPhyMNE> <ConsultingPhyMNE>f pt consult dr goodwin</ConsultingPhyMNE> <FamilyPhyMNE>f pt fam dr goodwin</FamilyPhyMNE> <OtherPhyMNE>f pt other dr goodwin</OtherPhyMNE> < PrimaryPhyMNE>f pt prim care dr goodwin</PrimaryPhyMNE> <ReferringPhyMNE>f pt referring dr goodwin</ReferringPhyMNE> EKG EKG #1--junctional rhythm at 50 bpm with no acute ST-T changes. EKG #2--atrial flutter with variable AV block and right bundle branch block at a rate of 52, with no acute ST-T changes. Impression Assessment and Plan Precordial chest pain with radiation to left arm--patient has a history of paroxysmal atrial fibrillation , for which he is on warfarin. Today, while in the emergency department, his rhythm changes on the monitor from junctional to atrial flutter with variable block, and EKG change confirms that. He will be admitted to the telemetry unit, for serial cardiac enzymes, cardiac rhythm monitoring, and a 2-D echocardiogram with Dopplers and continue aspirin chewable 81 mg by mouth every morning, clopidogrel 75 mg by mouth every morning , diltiazem extended release 180 mg by mouth every morning, furosemide 40 mg by mouth every morning, Imdur extended release 120 mg by mouth every morning, metoprolol tartrate 50 mg by mouth 3 times a day, potassium chloride extended release 20 mEq by mouth every morning, and warfarin 10 mg by mouth Tuesday , Tuesday, Tuesday, and 7.5 mg by mouth Tuesday , ,Tuesday and Tuesday. Hold eplerenone due to nonformulary status. His INR today is 2.3, his point-of- care troponin is normal at 0.010, with lab troponin I ordered and pending at this time. Diabetes mellitus--continue Lantus insulin 10 units subcutaneous at bedtime, and place on Accu-Cheks before meals and at bedtime with NovoLog coverage. BPH--continue Avodart 0.5 mg by mouth at bedtime and tamsulosin 0.4 mg by mouth at bedtime. Hypercholesterolemia--continue Zetia 10 mg by mouth at bedtime and fish oil 1 capsule by mouth twice a day. SWIFT/cirrhosis--continue lactulose 15 ML's by mouth daily, and Xifaxan 550 mg by mouth twice a day. GERD--continue pantoprazole 40 mg by mouth every morning. 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 Y/N: Yes Risk Level: Moderate Given or contraindicated: Warfarin (Coumadin)
[2016-07-01 16:08] LABS: CKMB/CK RATIO 0.4 (0-3.0)
[2016-07-01 17:07] VITALS: BP 195/103; PULSE 60; TEMP 36.8; O2SAT 97
[2016-07-01] MEDS: AVODART: ORDER AWAITING ACTION SCH (17:34)
[2016-07-01] MEDS ORDERED: HydrALAZINE HCL 20 MG/ML VIAL IV. PRN (18:45)
[2016-07-01] MEDS ORDERED: LISINOPRIL 5 MG TAB PO ONE (18:45)
[2016-07-01] MEDS: INSULIN ASPART 100 UNITS/ML 3 ML PEN SC SCH ×2 (18:51→21:00)
[2016-07-01 20:12] VITALS: O2SAT 97
[2016-07-01 20:16] VITALS: BP 189/103; PULSE 71; TEMP 37; O2SAT 99
--- NOTE | 2016-07-01 20:45 | CARDIOLOGY CONSULTATION ---
DATE OF CONSULTATION: 07/01/2016 TIME: 18:47 p.m. CONSULTING PHYSICIAN: Julio Shaw MD REASON FOR CONSULTATION: Atrial flutter with variable block. PRIMARY MARINE RIGGER: Renny Root MD HISTORY OF PRESENT ILLNESS: Mr. Herring is a pleasant 65-year-old gentleman with a history significant for multivessel CAD status post CABG and then redo CABG in 2010, hypertension, dyslipidemia, diabetes, atrial flutter, paroxysmal atrial fibrillation, amiodarone-induced thyroid disorder and cirrhosis from [facility]IFT. He also has grade 1 esophageal varices and a history of hepatic encephalopathy. He states [place] [facility] [place] then a redo CABG in 2010. He follows with Dr. Root and has not had a cardiac catheterization since prior to his second CABG. For the past 3 days, he has been experiencing intermittent left lower chest discomfort described as a 2/10. Other than a dull discomfort, he cannot further characterize the pain. It radiates to his left arm and sometimes into his abdomen, but there is no associated shortness of breath or diaphoresis. One episode lasted up to 1 hour before resolving. The symptoms have been occurring at rest. He intermittently had symptoms today multiple times, with most episodes lasting approximately 15 minutes. Last evening, he took a nitroglycerin spray without relief and then took a second nitroglycerin. The pain resolved within 15 minutes. When asked if this was similar to prior angina, he does not believe that he had prior angina with his other bypass surgeries. He admits that he does not do much exercise secondary to 3 separate back surgeries, the last being in June of 2015 when he had an abscess from other back procedures. He has chronic, but stable lower extremity edema and takes furosemide; this has been present ever since his bypass surgery and the left tends to be greater than the right. He does have intermittent diarrhea on lactulose. He did have some nausea and vomiting a few weeks ago and also one episode last week. This occurred after taking pills on an empty stomach. He denies orthopnea, syncope, near syncope, palpitations, melena, hematochezia, hematuria or hemetemesis. No recent fevers, chills, stroke or stroke-like symptoms. He states that he is typically asymptomatic in regards to his atrial arrhythmias. He is chronically maintained on aspirin, Plavix and Coumadin. He also reports having any ASD in the past which was closed during his first CABG in 1993. He did experience some left-sided chest discomfort while I was in the room, conversing with him. An ECG was done without significant ST changes. Nitroglycerin was ordered. REVIEW OF SYSTEMS: As above and review of systems is otherwise negative. PAST MEDICAL HISTORY: [place]. [place] [facility] [place] [facility] [place] 3. Multivessel CAD with last cardiac catheterization on 03/15/2011 demonstrating proximal LAD 10-20% followed by 70%. Diagonal 50%. Second diagonal ostial 50% and proximal stenosis. Mid LAD 10-30%. Distal LAD 75%. Mid circumflex 90%. Obtuse marginal branch 75%. Proximal circumflex 50-75%. Mid RCA 50%. Distal RCA 30-50%. PDA proximal 10-30%. Mid PDA 90%. PL branch 50-70% at the ostium. SVG to circumflex occluded 100%. PENALOZA atretic. Previously documented SVG to RCA 100%, referred to CABG. 4. Diabetes. 5. Dyslipidemia. 6. Hypertension. 7. Paroxysmal atrial fibrillation. 8. Paroxysmal atrial flutter. 9. Amiodarone-induced thyroid disorder. 10. Cirrhosis. 11. Chronic edema. 12. Alpha thalassemia minor. 13. Aldosteronism. 14. Diabetic peripheral neuropathy. 15. Esophageal varices, grade 1. 16. Hepatic encephalopathy. 17. Hiatal hernia. 18. Hypomagnesemia. 19. Obesity. 20. Three back procedures. 21. Sleep apnea. 22. Venous insufficiency. HOME MEDICATIONS: Include; aspirin 81 mg daily, Plavix 75 mg daily, Coumadin as directed, isosorbide mononitrate 120 mg daily, nitroglycerin as needed, eplerenone 25 mg daily, insulin, Protonix 40 mg daily, amoxicillin for SBE prophylaxis, Zetia 10 mg daily, diltiazem 180 mg daily, Cymbalta 30 mg daily, metoprolol tartrate 50 mg t.i.d., Lasix 40 mg twice daily, potassium chloride 40 mEq and magnesium tabs. CURRENT INPATIENT MEDICATIONS: Reviewed and include; aspirin 81 mg daily, Plavix 75 mg daily, Lasix 40 mg daily, diltiazem 180 mg daily, Zetia 10 mg daily, isosorbide 120 mg daily, lactulose 10 grams daily, metoprolol tartrate 50 mg p.o. t.i.d., Protonix 40 mg daily, potassium chloride 20 mEq daily, rifaximin 550 mg p.o. b.i.d., Flomax 0.4 mg at bedtime, Coumadin 10 mg on Tuesday, Tuesday, Tuesday and 7.5 mg on all other days. ALLERGIES AND INTOLERANCES: ACTOS, SIMVASTATIN, SPIRONOLACTONE. SOCIAL HISTORY: No current tobacco abuse. No alcohol. He is and lives with his . Two children. Grandchildren. 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 He did smoke tobacco products in the past. FAMILY HISTORY: Both parents with stroke. PHYSICAL EXAMINATION: VITAL SIGNS: Temperature is 36.8 degrees, heart rate 60 beats per minute, respiration rate 18, blood pressure 195/103 mmHg, oxygen saturation 97% on room air, weight 146.1 kg. GENERAL: No acute distress, alert and oriented. HEENT: Anicteric sclerae. NECK: Thick, cannot assess JVD. No bruits. Normal carotid upstrokes bilaterally. CARDIAC: PMI was nonpalpable. There was no ventricular heave. Regular, normal S1, S2. No murmurs, rubs or gallops were auscultated. CHEST: Nontender to palpation. LUNGS: Clear to auscultation bilaterally without wheezes, rales or rhonchi. ABDOMEN: Soft, nontender, nondistended, normoactive bowel sounds, no bruits noted. EXTREMITIES: Has 2+ radial pulses bilaterally, 2+ dorsalis pedis pulses bilaterally, 1+ bilateral lower extremity edema. No cyanosis. No palpable cords. PSYCHIATRIC: Affect appears appropriate. LABORATORY DATA: White blood cell count is 3.82; hemoglobin 14.4, platelets 105. Sodium 144, potassium 4, BUN 7, creatinine 0.86, AST 94, ALT 71, CK-MB 1.8, troponin 0.054, repeated 0.01. Albumin 3. INR 2.3. CT angiogram of the chest, report reviewed. No evidence of pulmonary embolism; however, there were limitations according to radiology to the study. Cirrhosis; cardiomegaly; pulmonary nodules, left upper lobe measuring 4 mm at the largest. ECG, personally reviewed. Atrial flutter with variable AV block. Heart rate 50 beats per minute. ASSESSMENT AND PLAN: 1. Atrial flutter: He has a history of paroxysmal atrial flutter and appears to be very well rate-controlled with metoprolol 50 mg three times daily. Continue current regimen. He is on anticoagulation for stroke risk reduction. He is therapeutic. He can continue Coumadin for now. However, if he requires a procedure such as cardiac catheterization, would have to hold Coumadin and as this would possibly be a femoral approach due to his prior coronary artery bypass graft, would want the INR to be subtherapeutic. Further troponins are pending. He is asymptomatic from his atrial flutter. 2. Multivessel coronary artery disease status post coronary artery bypass graft and redo coronary artery bypass graft: He is having chest discomfort which may or may not represent angina. We will continue to medically manage for now while checking serial troponin levels. Given that he had an hour episode of chest pain last night, I would expect him to have significantly elevated troponins if it was ischemic in origin. His symptoms are at rest. Continue antiplatelet therapy. It is unclear why he is on dual antiplatelet therapy with anticoagulation. Continue beta mary and nitrate therapy. High intensity statin therapy is warranted from a cardiac perspective, but he did not tolerate simvastatin. It is not clear if he ever tried other statin medications, although he does not believe so. If no contraindication from a hepatic standpoint, consider high intensity statin therapy such as atorvastatin. 3. Chest pain: Chest pain is atypical in that it occurs at rest; however, he does have multivessel coronary artery disease. Check serial troponins. Further diagnostic procedures will be further determined after serial troponins. Cardiac catheterization was discussed and considered, if troponin Trends upward significantly, or continues to have pain. There is no urgent indication at this time. Risks of the procedure were discussed with him and he would be agreeable to undergo cardiac catheterization, if warranted. Echocardiogram is recommended and will be ordered at this time. Chest pain could also be related to severe hypertension which he has had throughout his hospital stay thus far. This will be addressed below. 4. Hypertension: His blood pressure is severely elevated. This also can cause chest discomfort and elevated troponins. His first troponin is slightly abnormal, but not diagnostic of myocardial infarction. Lisinopril 5 mg once now and daily. This could be titrated as appropriate. Hydralazine 10 mg IV p.r.n. will also be ordered for systolic blood pressures greater than 170. Continue beta mary. He is well beta blocked and should not further titrate this due to bradycardia. 5. Dyslipidemia: High intensity statin therapy if no contraindications. 6. Disposition: Cardiology will continue to follow up. Highly complex medical issues. Thank you for allowing me to participate in the care of Mr. Herring. MATEO
[2016-07-01] MEDS: RIFAXIMIN TAB 550 MG TAB PO SCH (20:59)
[2016-07-01] MEDS: OMEGA-3 (PURIFIED FISH OIL) 1 GM CAP PO SCH (21:00)
[2016-07-01] MEDS ORDERED: INSULIN GLARGINE SOLOSTAR 100 UNITS/ML 3 ML PEN SC SCH (21:00)
[2016-07-01] MEDS ORDERED: TAMSULOSIN HCL 0.4 MG CAP PO SCH (21:00)
[2016-07-01] MEDS ORDERED: EZETIMIBE 10MG TAB PO SCH (21:00)
[2016-07-01] MEDS: METOPROLOL TARTRATE 50 MG TAB PO SCH (21:01)
[2016-07-01 23:08] LABS: CKMB/CK RATIO 0.4 (0-3.0)
[2016-07-01 23:45] VITALS: BP 167/81; PULSE 53; TEMP 36.9; O2SAT 98
[2016-07-02] VITALS (8 sets, daily range): BP systolic 126–197; BP diastolic 62–116; PULSE 41–75; TEMP 36.2–36.8; O2SAT 96–98
[2016-07-02 06:49] LABS: MEAN CORPUSCULAR HGB CONC 34.1 g/dl (32-36)
[2016-07-02 06:52] LABS: HEMATOCRIT 42.2 % (42-52); MEAN CORPUSCULAR HEMOGLOBIN 25.6 pg (25-34); RED BLOOD COUNT 5.63 M/uL (4.7-6.1); WHITE BLOOD COUNT 3.37 K/uL (4.8-10.8)
[2016-07-02 07:02] LABS: INR 2.1 (0.9-1.1); PARTIAL THROMBOPLASTIN RATIO 1.5; PROTHROMBIN TIME (PATIENT) 23.5 SECONDS (9.0-12.0)
[2016-07-02 07:20] LABS: BUN/CREATININE RATIO 7.5 (10-20); CALCIUM 8.5 mg/dl (8.5-10.1); CREATININE 0.77 mg/dl (0.60-1.40); MAGNESIUM 1.6 mg/dl (1.8-2.4); POTASSIUM 3.6 mmol/L (3.5-5.1)
[2016-07-02 07:33] LABS: CKMB/CK RATIO 0.5 (0-3.0)
[2016-07-02] MEDS: AVODART: ORDER AWAITING ACTION SCH ×4 (07:48→16:25)
[2016-07-02] MEDS: RIFAXIMIN TAB 550 MG TAB PO SCH (07:54)
[2016-07-02] MEDS: METOPROLOL TARTRATE 50 MG TAB PO SCH ×2 (07:55→13:46)
[2016-07-02] MEDS: OMEGA-3 (PURIFIED FISH OIL) 1 GM CAP PO SCH (07:56)
[2016-07-02] MEDS: INSULIN ASPART 100 UNITS/ML 3 ML PEN SC SCH ×3 (08:05→16:30)
[2016-07-02] MEDS ORDERED: DULOXETINE (CYMBALTA) 30 MG CAP PO SCH (09:00)
[2016-07-02] MEDS ORDERED: CLOPIDOGREL BISULFATE 75 MG TAB PO SCH (09:00)
[2016-07-02] MEDS ORDERED: PANTOprazole SOD 40 MG TAB PO SCH (09:00)
[2016-07-02] MEDS ORDERED: LACTULOSE SYRUP 10 GM/15 ML BTL 473 ML PO SCH (09:00)
[2016-07-02] MEDS ORDERED: POTASSIUM CHLORIDE 20 MEQ TABCR PO SCH (09:00)
[2016-07-02] MEDS ORDERED: ISOSORBIDE MONONITRATE 60 MG TABCR PO SCH ×2 (09:00)
[2016-07-02] MEDS ORDERED: ASPIRIN 81 MG ECTAB PO SCH (09:00)
[2016-07-02] MEDS ORDERED: DILTIAZEM HCL (TIAzac) 180 MG CAPCR PO SCH (09:00)
[2016-07-02] MEDS ORDERED: FUROSEMIDE 40 MG TAB PO SCH (09:00)
[2016-07-02] MEDS ORDERED: LISINOPRIL 5 MG TAB PO SCH (09:00)
[2016-07-02] MEDS ORDERED: MULTIVITAMIN TAB PO SCH (09:00)
[2016-07-02 09:16] LABS: PLATELET COUNT 96 K/uL (130-400)
[2016-07-02 09:17] LABS: BASO % 0.3 %; BASO ABS # 0.01 K/uL (0-0.2); COMPLETE YES; EOS % 3.6 %; GIANT PLATELETS 1+; HYPOCHROMIA PRESENT; LYMPH % 45.7 %; LYMPH ABS # 1.54 K/uL (1.2-3.4); MICROCYTOSIS PRESENT; MONO % 13.9 %; NEUT % 36.5 %; PLT ESTIMATE DECREASED; TARGET CELLS 1+
[2016-07-02] MEDS ORDERED: LISINOPRIL 5 MG TAB PO ONE (10:00)
--- NOTE | 2016-07-02 10:04 | CARDIOLOGY PROGRESS NOTE ---
DATE: 07/02/2016 TIME: 9:39 a.m. SUBJECTIVE: He has not had any further chest discomfort overnight. He denies shortness of breath, orthopnea, PND, syncope or near syncope. He did not sleep much; however, due to nocturia. OBJECTIVE: VITAL SIGNS: Temperature 36.7 degrees, heart rate 75 beats per minute, respiration rate 20, blood pressure 197/116 mmHg, oxygen saturation 97% on room air, weight 141.2 kg. GENERAL: No acute distress. He is alert. NECK: Thick. CARDIAC: No ventricular heave. Regular, normal S1, S2. No murmurs, rubs, or gallops were auscultated. LUNGS: Clear to auscultation bilaterally without wheezes, rales or rhonchi. ABDOMEN: Soft, nontender, nondistended. Normoactive bowel sounds. EXTREMITIES: 1+ bilateral lower extremity edema. No cyanosis. 2+ radial pulses bilaterally. PSYCHIATRIC: Affect appears appropriate. MEDICATIONS: Include aspirin 81 mg daily, Plavix 75 mg daily, diltiazem 180 mg daily, Zetia 10 mg at bedtime, Lasix 40 mg daily, hydralazine 10 mg p.r.n., which has not yet been given isosorbide mononitrate 240 mg daily, lactulose 10 mg daily, lisinopril 5 mg daily started yesterday, metoprolol tartrate 50 mg p.o. t.i.d., Protonix 40 mg daily, potassium chloride 20 mEq daily, Coumadin. LABORATORY DATA: White blood cell count is 3.37, hemoglobin 14.4, platelets 96. Sodium 144, potassium 3.6, BUN 6, creatinine 0.77, magnesium 1.6, ALT 66, AST 89. Peak troponin 0.075. INR 2.1. Telemetry personally reviewed. He did have a 10 beat run of ventricular tachycardia at 1754 on 07/01/2016. He was asymptomatic. ECG personally reviewed from this morning, atrial flutter with variable AV block. Echocardiogram images personally reviewed on preliminary evaluation. LV systolic function appears normal. There appears to be a very small focal hold mid septal hypokinesis to hypokinetic to akinetic area. It is very small and focal, however. A full report to follow after formal review. There also appeared to be mild mitral regurgitation. ASSESSMENT AND PLAN: 1. Chest pain: May or may not be related to ischemic heart disease. It could be related to severe hypertension as well. Symptoms occur at rest. Troponins are slightly abnormal, but not diagnostic of myocardial infarction and despite episodes of pain lasting up to an hour. Recommend improvement in blood pressure control. If he continues to have symptoms, would then recommend ischemic evaluation. Increase lisinopril to 10 mg daily, and continue to titrate medications as appropriate. 2. Multivessel coronary artery disease status post coronary artery bypass graft and redo coronary artery bypass grafting: He has [place] and bypass coronary artery coronary artery disease. Chest discomfort could be related to angina, especially in the setting of severe hypertension. Blood pressure control important as above. Isosorbide mononitrate has been doubled at 240 mg daily. He is well beta blocked. Continue current dose of beta mary. High intensity statin therapy is recommended. However, he did not tolerate simvastatin in the past. If there is no contraindication, would recommend atorvastatin in place of Zetia. Also, continue antiplatelet therapy. Single antiplatelet therapy would suffice from a cardiac standpoint, especially while on Coumadin. It is not clear why he is taking Plavix. If there is no definite indication, can discontinue Plavix and continue aspirin with Coumadin. 3. Hypertension: Blood pressure not well controlled. Lisinopril will be titrated to 10 mg daily. 4. Atrial flutter: He is asymptomatic. He is well rate controlled. Continue anticoagulation for stroke risk reduction. Goal INR is 2-3. 5. Paroxysmal ventricular tachycardia: He is asymptomatic. Continue beta mary therapy. He had a 10 beat run. Continue telemetry. 6. Dyslipidemia: We would recommend atorvastatin 40-[address] of Zetia if no contraindications from a liver standpoint. This can be dealt with as an outpatient as it is not clear at this time if he has tried other statins, other than simvastatin which he did not tolerate. 7. Disposition: Dr. Rizo will be available over the weekend for any questions or concerns. Attempts will be made to contact the primary hospitalist to discuss this patient's care and to ensure that he is chest pain free. He will likely require hospitalization throughout the day.
--- NOTE | 2016-07-02 12:37 | ECHOCARDIOGRAM REPORT ---
*NOTICE TO RECEIVING REPUBL[employer] AGENCY This information is strictly Confidential and protected under [place] law. [place] law prohibits you from making any further disclosure of this information unless further disclosure is expressly permitted by the written consent of the person to whom it pertains or is authorized by law. A general authorization for the release of medical or other information is not sufficient for this purpose. Hospital accepts no responsibility if the information is made available to any other person, INCLUDING THE PATIENT. Interpretation Summary * Name: RAMY CHARLES Study Date: 07/02/2016 06:51 AM BP: 143/81 mmHg * Patient Location: [facility]\S\[id number]\S\1 HR: 52 * : 1950 (M/d/yyyy) Gender: Male Height: 72 in * Age: 65 yrs Ethnicity: AA Weight: 322 lb * Ordering Physician: Canelo Isbell * Referring Physician: Self, Referred * Performed By: Rita Vicente RCS * * Reason For Study: Chest Pain, CAD * BSA: 2.6 m2 * -- Conclusions -- * 1. Moderately dilated LV. Normal LV wall thickness. * 2. Normal LV systolic function. LVEF 55-60%. No regional wall motion abnormalities. * 3. Moderately dilated RV with mild RV dysfunction. * 4. Severe biatrial enlargement. * 5. Mild mitral regurgitation. * 6. Normal IVC, normal estimated RA pressure. * 7. No prior studies for comparison. Procedure Details * A complete two-dimensional transthoracic echocardiogram was performed (2D, M-mode, Doppler and color flow Doppler). Left Ventricle * The left ventricle is moderately dilated. * There is normal left ventricular wall thickness. * Ejection Fraction = 55-60%. * No regional wall motion abnormalities noted. Right Ventricle * The right ventricle is moderately dilated. * The right ventricular systolic function is mildly reduced. Atria * The left atrium is severely dilated. * The right atrium is severely dilated. * No ASD detected; PFO is not assessed. Mitral Valve * The mitral valve is grossly normal. * There is no mitral valve stenosis. * There is mild mitral regurgitation. Tricuspid Valve * The tricuspid valve is not well visualized, but is grossly normal. * There is no tricuspid stenosis. * Significant tricuspid regurgitation is absent. Aortic Valve * The aortic valve opens well. * No hemodynamically significant valvular aortic stenosis. * There is no significant aortic regurgitation. Pulmonic Valve * The pulmonary valve is inadequately visualized, but the Doppler data is adequate for interpretation. * Pulmonic stenosis is absent. * Trace pulmonic valvular regurgitation. Great Vessels * The aortic root and proximal ascending aorta are normal sized. Pericardium/Pleural * There is no pericardial effusion. Great Vessels * Normal inferior vena cava size and collapsability with sniff indicates a normal right atrial pressure of 3 mmHg MMode 2D Measurements and Calculations IVSd 1.1 cm IVSs 1.5 cm LVIDd 6.2 cm LVIDs 4.4 cm LVPWd 1.1 cm LVPWs 1.4 cm IVS/LVPW 0.96 FS 30.1 % EDV(Teich) 197.3 ml ESV(Teich) 86.1 ml EF(Teich) 56.3 % EDV(cubed) 243.6 ml ESV(cubed) 83.3 ml EF(cubed) 65.8 % % IVS thick 43.4 % % LVPW thick 27.4 % LV mass(C)d 292.6 grams LV mass(C)dI 112.2 grams/m\S\2 LV mass(C)s 254.0 grams LV mass(C)sI 97.4 grams/m\S\2 CO(Teich) 6.4 l/min CI(Teich) 2.5 l/min/m\S\2 SV(Teich) 111.1 ml SI(Teich) 42.6 ml/m\S\2 CO(cubed) 9.3 l/min CI(cubed) 3.6 l/min/m\S\2 SV(cubed) 160.4 ml SI(cubed) 61.5 ml/m\S\2 Ao root diam 3.8 cm Ao root area 11.2 cm\S\2 ACS 2.1 cm LA dimension 5.1 cm LA/Ao 1.4 LVAd ap4 43.8 cm\S\2 LVLd ap4 9.0 cm EDV(MOD-sp4) 175.0 ml LVAs ap4 27.5 cm\S\2 LVLs ap4 8.1 cm ESV(MOD-sp4) 79.0 ml EF(MOD-sp4) 54.9 % LVAd ap2 49.3 cm\S\2 LVLd ap2 9.8 cm EDV(MOD-sp2) 206.0 ml LVAs ap2 30.6 cm\S\2 LVLs ap2 8.8 cm ESV(MOD-sp2) 88.0 ml EF(MOD-sp2) 57.3 % CO(MOD-sp4) 5.6 l/min CI(MOD-sp4) 2.1 l/min/m\S\2 SV(MOD-sp4) 96.0 ml SI(MOD-sp4) 36.8 ml/m\S\2 CO(MOD-sp2) 6.8 l/min CI(MOD-sp2) 2.6 l/min/m\S\2 SV(MOD-sp2) 118.0 ml SI(MOD-sp2) 45.2 ml/m\S\2 Doppler Measurements and Calculations MV E max nancy 127.8 cm/sec MV A max nancy 40.0 cm/sec MV E/A 3.2 MV P1/2t max nancy 127.3 cm/sec MV P1/2t 82.5 msec MVA(P1/2t) 2.7 cm\S\2 MV dec slope 451.7 cm/sec\S\2 MV dec time 0.22 sec Ao V2 max 113.4 cm/sec Ao max PG 5.1 mmHg Ao max PG (full) 1.2 mmHg LV V1 max PG 3.9 mmHg LV V1 max 98.7 cm/sec PA V2 max 78.4 cm/sec PA max PG 2.5 mmHg PI max nancy 228.0 cm/sec PI max PG 20.8 mmHg PI dec slope 183.8 cm/sec\S\2 PI P1/2t 363.4 msec
[2016-07-02] MEDS ORDERED: WARFARIN SOD 10 MG TAB PO SCH (16:00)
[2016-07-02] MEDS ORDERED: LSN10 PO (16:38)
[2016-07-02] MEDS ORDERED: LISI-461 PO (16:40)
--- NOTE | 2016-07-02 16:44 | Discharge Instructions ---
Discharge Instructions Admission Reason for Admission: Atrial Flutter,Chest Pain Radiating To Arm Discharge Discharge Diagnosis / Problem: Hypertension, Chest pain Discharge Goals Goal(s): Decrease discomfort, Improve disease control Activity Recommendations Activity Limitations: resume your previous activity . Instructions / Follow-Up Instructions / Follow-Up Follow up with PCP within one week. Follow up with Cardiology within one month. Current Hospital Diet Patient's current hospital diet: AHA Diet (Heart Healthy), Diabetes Type 2 Diet Discharge Diet Recommended Diet: AHA Diet (Heart Healthy), Low Sodium Diet (2gm Na), Diabetes Type 2 Diet Procedures Procedures Performed: Transthoracic echocardiogram: Interpretation Summary * Name: RAMY CHARLES Study Date: 07/02/2016 06:51 AM BP: 143/81 mmHg * Patient Location: [facility]\\S\\76\\S\\1 HR: 52 * : 1950 (M/d/yyyy) Gender: Male Height: 72 in * Age: 65 yrs Ethnicity: AA Weight: 322 lb * Ordering Physician: Canelo Isbell * Referring Physician: Self, Referred * Performed By: Rita Vicente RCS * * Reason For Study: Chest Pain, CAD * BSA: 2.6 m2 * -- Conclusions -- * 1. Moderately dilated LV. Normal LV wall thickness. * 2. Normal LV systolic function. LVEF 55-60%. No regional wall motion abnormalities. * 3. Moderately dilated RV with mild RV dysfunction. * 4. Severe biatrial enlargement. * 5. Mild mitral regurgitation. * 6. Normal IVC, normal estimated RA pressure. * 7. No prior studies for comparison. Pending Studies Studies pending at discharge: no Laboratory Results Lipid Panel Test 06/29/16 11:06 Range/Units Triglycerides Level 53 0-150 mg/dl Cholesterol Level 198 0-200 mg/dl HDL Cholesterol 61 mg/dl Cholesterol/HDL Ratio 3.2 LDL Cholesterol, Calculated 126 mg/dl Medical Emergencies . Who to Call and When: Medical Emergencies: If at any time you feel your situation is an emergency, please call 911 immediately. . Non-Emergent Contact Non-Emergency issues call your: Primary Care Provider Call Non-Emergent contact if: your pain is not controlled, your pain is worsening, you have any medication questions . . "Provider Documentation" section prepared by Ervin Carey. VTE Core Measure Inpt VTE Proph given/why not?: Warfarin (Coumadin)
--- NOTE | 2016-07-02 17:04 | Discharge Summary ---
Discharge Summary Admission Date: Jul 01, 2016 at 14:55 Discharge Date: Jul 02, 2016 Discharge Disposition: Home Principal Diagnosis: Hypertensive urgency Problems/Secondary Diagnoses: CAD, atrial fibrillation/flutter, DM2, cirrhosis Immunizations: Have You Had Influenza Vaccine: Yes Influenza Vaccine Date: May 17, 2013 History of Tetanus Vaccine?: utd History of Pneumococcal: Yes Pneumococcal Date: May 17, 2013 History of Hepatitis B Vaccine: Unknown Procedures: TTE: Interpretation Summary * Name: RAMY CHARLES Study Date: 07/02/2016 06:51 AM BP: 143/81 mmHg * Patient Location: [facility]\S\N276\S\1 HR: 52 * : 1950 (M/d/yyyy) Gender: Male Height: 72 in * Age: 65 yrs Ethnicity: AA Weight: 322 lb * Ordering Physician: Canelo Isbell * Referring Physician: Self, Referred * Performed By: Rita Vicente RCS * * Reason For Study: Chest Pain, CAD * BSA: 2.6 m2 * -- Conclusions -- * 1. Moderately dilated LV. Normal LV wall thickness. * 2. Normal LV systolic function. LVEF 55-60%. No regional wall motion abnormalities. * 3. Moderately dilated RV with mild RV dysfunction. * 4. Severe biatrial enlargement. * 5. Mild mitral regurgitation. * 6. Normal IVC, normal estimated RA pressure. * 7. No prior studies for comparison. Consultations: Dr. Isbell - Cardiology Medication Reconciliation New Medications: Lisinopril (Lisinopril) 10 Mg Tab 10 MG PO DAILY for 90 Days, #90 TAB Lisinopril (Zestril) 10 Mg Tab 10 MG PO QAM for 30 Days, #30 TAB Continued Medications: Aspirin (Aspirin Chewable) 81 Mg Chew 81 MG PO QAM Clopidogrel (Plavix) 75 Mg Tab 75 MG PO QAM, TAB Diltiazem Hcl Ext Rel (Tiazac) 180 Mg Capcr 180 MG PO QAM, CAP Duloxetine Hcl (Cymbalta) 30 Mg Cap 30 MG PO QAM, CAP Dutasteride (Avodart) 0.5 Mg Cap 0.5 MG PO HS, CAP Eplerenone (Eplerenone) 25 Mg Tab 1 TAB PO QAM Ezetimibe (Zetia) 10 Mg Tab 10 MG PO HS, TAB Fish Oil ([place]-3) 1 Ea Cap 1 CAP PO BID, CAP Folic Acid (Folvite) 1 Mg Tab 1 MG PO DAILY AFTERNOON, TAB Furosemide (Lasix) 40 Mg Tab 40 MG PO QAM, TAB Insulin Glargine (Lantus) 100 Unit/Ml Inj 10 UNITS SC HS Isosorbide Mononitrate Ext Rel (Imdur Ext Rel) 120 Mg Ertab 120 MG PO QAM, TAB Lactulose (Chronulac) 10 Gm/15 Ml Syrp 15 ML PO DAILY Lidocaine Viscous 2% Soln (Viscous Lidocaine 2% Soln) Soln 1 DOSE EXT QID PRN for Pain Lorazepam (Ativan) 0.5 Mg Tab 0.5 MG PO BID PRN for Anxiety, TAB Metoprolol Tartrate (Lopressor) (Lopressor) 50 Mg Tab 50 MG PO TID, TAB Multivitamin (Multivitamin) Tab 1 TAB PO QAM, TAB Nitroglycerin (Nitrolingual 60 [place]) 1 [place] 1 SPRAY SL DIRECTED PRN for Chest Pain Pantoprazole (Protonix) 40 Mg Tab 40 MG PO QAM, #30 TAB Potassium Ext Rel (Klor-Con) 20 Meq Tabcr 20 MEQ PO QAM, TAB Rifaximin (Xifaxan) 550 Mg Tab 550 MG PO BID, TAB Tamsulosin Hcl (Flomax) 0.4 Mg Cap 0.4 MG PO HS, CAP Warfarin Sod (Jantoven) 5 Mg Tab 7.5 MG PO 4XWK, TAB TUESDAY, tuesday, , tuesday Warfarin Sod (Jantoven) 2 Mg Tab 10 MG PO 3XWK, TAB MON,TUE,TUE [Magnesium] () 1 TAB PO DAILY AFTERNOON Discharge Exam Physical Exam: General Appearance: no apparent distress Eyes: sclerae normal Respiratory/Chest: lungs clear, no respiratory distress Cardiovascular: regular rate, rhythm, no murmur Abdomen / GI: normal bowel sounds, non tender, soft Extremities: + pertinent finding (1+ edema bilateral lower extremities) Neurologic/Psychiatric: alert, oriented x 3 Skin: warm/dry Hospital Course Mr. Charles presented to the ED complaining of intermittent, left-sided chest pain that radiated into the left axilla. His initial work up in the ED revealed that he was hypertension with a mildly elevated troponin and EKG showing atrial fibrillation without obvious ischemic change. He was subsequently admitted and was evaluated by Cardiology. This morning, he underwent TTE which showed no new wall motion abnormality. Cardiology felt his chest pain was related to his severely uncontrolled hypertension. He was started on lisinopril with good response. By this afternoon, his blood pressure is controlled and he is chest pain free. 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 He should be considered for further ischemic work up if his chest pain recurs while eutensive. Of note, he is currently receiving aspirin, Plavix, and warfarin. The warfarin is on board because of atrial fibrillation. He does have a history of CAD with previous CABG, but does not require dual antiplatelet therapy for his CAD at this time. The patient is unsure when or why this was started. Cardiology recommended stopping Plavix if there is no other compelling reason for him to receive it. I will defer this to his PCP at this time. This includes examination of the patient, discharge planning, medication reconciliation, and communication with other providers. Discharge Instructions Please refer to the electronic Patient Visit Report (Discharge Instructions) for additional information. Follow-Up Follow up with PCP within a week. Follow up with [facility] Provider Relations with a month.
[2016-07-03] MEDS ORDERED: LISINOPRIL 10 MG TAB PO SCH (09:00)
== END 2016-07-02 17:55 | disposition home or self-care (01) | DRG 305 ==
LOC: ENRESERVDT → ENRESERVTM → C.EDB 11:47 → C.MED 14:55 → EDBEDREQ 14:57
PROVIDERS: ADMIT Hospitalist; ATTEND Hospitalist
DX: I16.0 Hypertensive urgency (principal); I48.92 Unspecified atrial flutter; I85.00 Esophageal varices without bleeding; E11.9 Type 2 diabetes mellitus without complications; E78.5 Hyperlipidemia, unspecified; D64.9 Anemia, unspecified; I45.10 Unspecified right bundle-branch block; K75.81 Nonalcoholic steatohepatitis (NASH); I48.0 Paroxysmal atrial fibrillation; G47.30 Sleep apnea, unspecified; I25.10 Atherosclerotic heart disease of native coronary artery without angina pectoris; Z79.82 Long term (current) use of aspirin; Z95.1 Presence of aortocoronary bypass graft; Z79.4 Long term (current) use of insulin; Z87.891 Personal history of nicotine dependence

== ENCOUNTER → 2016-07-27 | Outpatient (CLI) | payer BC ==
[~2016-07-27] MED LIST changes: +LACT10SO17 PO; +LISI-461 PO; +LSN10 PO; +RIFA550T2 PO
[2016-07-27 12:20] LABS: PROTHROMBIN TIME (PATIENT) 22.1 SECONDS (9.0-12.0)
[2016-07-27 12:27] LABS: BLOOD UREA NITROGEN 9 mg/dl (7-18); CARBON DIOXIDE 29 mmol/L (21-32); CHLORIDE 106 mmol/L (98-107); CREATININE 0.92 mg/dl (0.60-1.40); GLUCOSE 87 mg/dl (70-99); POTASSIUM 4.2 mmol/L (3.5-5.1); SODIUM 143 mmol/L (136-145)
== END | disposition home or self-care (01) ==
LOC: C.LAB 11:03
PROVIDERS: ATTEND Urology
DX: I10 Essential (primary) hypertension (principal); I48.0 Paroxysmal atrial fibrillation; R97.20 Elevated prostate specific antigen [PSA]

== ENCOUNTER → 2016-08-16 | Outpatient (CLI) | payer BC ==
[~2016-08-16] MED LIST changes: +WLLSR100 PO
[2016-08-16 17:38] LABS: CREATININE 0.88 mg/dl (0.60-1.40)
== END | disposition home or self-care (01) ==
LOC: C.LAB 14:55
PROVIDERS: ATTEND Internal Medicine Gastroenterology
DX: K76.9 Liver disease, unspecified (principal)

== ENCOUNTER → 2016-12-24 | Outpatient (CLI) | payer BC ==
[~2016-12-24] VITALS: Ht 177.8 cm; Wt 146.0 kg
[~2016-12-24] MED LIST changes: +DAPT500I PO; +DULO60CA44 PO; +MGNO400 PO; +RXC5 PO
[2016-12-24 13:54] VITALS: BP 167/94; PULSE 51; Ht 177.8 cm; Wt 146.0 kg
== END | disposition home or self-care (01) ==
LOC: C.NEUR 12:46
PROVIDERS: ATTEND Physician Assistant
DX: G47.30 Sleep apnea, unspecified (principal); C22.9 Malignant neoplasm of liver, not specified as primary or secondary

== ENCOUNTER → 2017-03-08 | Outpatient (CLI) | payer BC, OTHER ==
[2017-03-08 19:26] LABS: INR 1.4 (0.9-1.1); PROTHROMBIN TIME (PATIENT) 15.7 SECONDS (9.0-12.0)
[2017-03-08 19:28] LABS: BLOOD UREA NITROGEN 9 mg/dl (7-18); CREATININE 0.83 mg/dl (0.60-1.40)
== END | disposition home or self-care (01) ==
LOC: C.LAB 17:57
PROVIDERS: ATTEND Internal Medicine Cardiovascular Disease
DX: Z01.812 Encounter for preprocedural laboratory examination (principal); I48.0 Paroxysmal atrial fibrillation

== ENCOUNTER → 2017-03-10 | Outpatient (CLI) | payer BC ==
[~2017-03-10] MED LIST changes: +GADAVIST IV PRN
--- NOTE | 2017-03-10 11:15 | DIAGNOSTIC IMAGING REPORT ---
LUMBAR SPINE COMBINATION CLINICAL HISTORY: 66 years-old Male presenting with LUMBAR SPINE PAIN. TECHNIQUE: Multisequence, multiplanar MR imaging of the lumbar spine was performed before and after the administration of intravenous contrast. IV contrast: 14 mL of Gadavist. COMPARISON: 06/18/2015. FINDINGS: Localizer images: Unremarkable. Postsurgical changes of bilateral transpedicular screw and carlos alberto fixation of L3-S1. An interbody spacer is noted at L4-5. Sclerotic endplate changes noted at L4-5. Diffuse bony edema noted along the endplates of L5-S1, new from prior. In comparison to prior exam, increased signal intensity within the intervertebral disc spaces diffusely in the lumbar spine. Specifically, at L5-S1 disc space, increased signal intensity of the disc with central disc protrusion now resulting in complete effacement of CSF at this level and crowding of the cauda equina. This demonstrates intense enhancement on postcontrast imaging with significant epidural enhancement. There is also moderate neural foraminal narrowing at L5-S1 on the right. Overall normal lumbar lordosis. The spinal canal is narrow on a developmental basis. The nonoperative levels demonstrate interval vertebral body height loss at L1 and more significantly at L2. Bony edema in the L2 vertebral body and potentially minimal bony edema along the inferior endplate of L1. Mild bilateral neural foraminal narrowing noted at L2-3. There is also near complete effacement of CSF at L2-3 and crowding of the cauda equina. This results from mild disc bulge and thickening of the ligamentum flavum, not significantly changed from prior exam. In place of the large subcutaneous fluid collection, well-defined infiltration is noted with thin laminar fluid. Diffuse increased signal intensity of the paraspinal musculature from L3 to S1. Associated enhancement on postcontrast imaging. The spinal cord ends at L1. Prominent left renal cyst. IMPRESSION: 1. Interval development of increased signal intensity within the intervertebral discs at both the operative and nonoperative levels, most significantly at L5-S1, with associated bony edema and inflammatory change in the paraspinal musculature, also most significantly at L5-S1. Findings are highly concerning for discitis osteomyelitis. 2. Focal disc protrusion with significant epidural inflammation at L5-S1. This results in focal spinal canal narrowing and cauda equina impingement. 3. Chronic impingement of the cauda equina at L2-3. 4. Interval worsening of compression deformities at L1 and L2. 5. Residual scarring and scattered fluid in the subcutaneous tissue at the site of the prior large collection. 6. Postsurgical changes of posterior transpedicular fusion from L3 through S1 with L4-5 interbody spacer. Electronically signed by: Percy Vasquez M.D. 03/10/2017 11:13 AM Dictated Date/Time: 03/10/2017 10:52 AM
== END | disposition home or self-care (01) ==
LOC: C.MRIBC 09:12
PROVIDERS: ATTEND Orthopaedic Surgery Orthopaedic Surgery of the Spine
DX: Z01.812 Encounter for preprocedural laboratory examination (principal); M51.27 Other intervertebral disc displacement, lumbosacral region; G83.4 Cauda equina syndrome; Z98.890 Other specified postprocedural states

== ENCOUNTER 2017-03-17 09:26 | Inpatient (IN) | payer OTHER, BC ==
[~2017-03-17] VITALS: Ht 188 cm; Wt 129.9 kg
[~2017-03-17 09:26] MED LIST changes: -DAPT500I PO; -DULO60CA44 PO; -GADAVIST IV PRN; -MGNO400 PO; -RXC5 PO; -WLLSR100 PO
[2017-03-17] MEDS ORDERED: SODIUM CHLORIDE 0.9% 1000ML 250 ML IV STA (10:33)
[2017-03-17] MEDS ORDERED: SODIUM CHLORIDE 0.9% 1000ML 1,000 ML IV STA (10:33)
[2017-03-17] MEDS ORDERED: VANCOMYCIN INJ 2,750 MG in SODIUM CHLORIDE 0.9% 500ML 500 ML IV STA (10:39)
--- NOTE | 2017-03-17 10:57 | DIAGNOSTIC IMAGING REPORT ---
SINGLE VIEW CHEST CLINICAL HISTORY: Atypical chest pain. FINDINGS: 2 AP, portable, upright an semierect chest radiographs are compared to chest x-ray and chest CT dated 07/01/2016. The examination is degraded by portable technique and patient rotation. The patient is status post midline sternotomy. The heart is enlarged. There is mild pulmonary vascular congestion. Chronic interstitial thickening is similar to previous. No airspace consolidation or large pleural effusion is identified. No pneumothorax is seen. The skeletal structures are osteopenic. The bony thorax is grossly intact. IMPRESSION: Cardiomegaly with mild pulmonary vascular congestion. Electronically signed by: Ronal Brady M.D. 03/17/2017 10:55 AM Dictated Date/Time: 03/17/2017 10:48 AM
[2017-03-17] MEDS ORDERED: CEFEPIME IV 2000 MG in DEXTROSE 5% 100ML IV STA (11:03)
[2017-03-17 11:30] VITALS: O2SAT 97; Ht 188 cm; Wt 129.9 kg
[2017-03-17] MEDS ORDERED: ONDANSETRON INJ 2 MG/ML 2 ML VIAL IV STA (11:31)
[2017-03-17] MEDS ORDERED: HYDROmorphone INJ 0.5 MG/0.5 ML SYR IV STA (11:31)
[2017-03-17 11:37] LABS: BASO % 0.2 %; BASO ABS # 0.01 K/uL (0-0.2); COMPLETE YES; EOS % 1.7 %; HEMATOCRIT 43.9 % (42-52); LYMPH % 25.7 %; LYMPH ABS # 1.07 K/uL (1.2-3.4); MEAN CELL VOLUME 76.1 fL (80-100); MEAN CORPUSCULAR HEMOGLOBIN 24.3 pg (25-34); MEAN CORPUSCULAR HGB CONC 31.9 g/dl (32-36); MEAN PLATELET VOLUME 10.5 fL (7.4-10.4); MONO % 10.3 %; NEUT % 62.1 %; PLATELET COUNT 189 K/uL (130-400); RED BLOOD COUNT 5.77 M/uL (4.7-6.1); WHITE BLOOD COUNT 4.16 K/uL (4.8-10.8)
[2017-03-17] MEDS ORDERED: WLLSR100 PO (11:37)
--- NOTE | 2017-03-17 11:43 | EMERGENCY ROOM VISIT NOTE ---
History Report prepared by [place]: Josh Friedman Under the Supervision of: Dr. Gianni Grider M.D. First contact with patient: 10:19 Chief Complaint: BACK PAIN Stated Complaint: BACK PAIN History of Present Illness The patient is a 66 year old male who presents to the Emergency Room with complaints of persistent lower back pain beginning a month ago. The patient states that his pain is across his back. He states that his pain occasionally radiates into his buttocks. He states that his pain initially occurred all throughout his body. The patient states that he has had muscle spasms of his back and abdomen as well. He also complains of leg weakness, occasional headaches, hematuria, and increased urinary frequency. He states that he occasionally has loss of urinary continence. He denies any numbness, fevers, chills, vomiting, chest pain, or SOB. The patient recently had a back MRI and met with Dr. Garrett to discuss the results today. He states that Dr. Garrett referred the patient to the ED for further evaluation. He states that he was referred for concern of possible infection. He notes that he has a history of previous back surgeries. The patient is on Coumadin for A-flutter. He notes that he was recently diagnosed with liver cancer and is on a liver transplant list. Source of History: patient, spouse/significant other Onset: A month ago Position: back (lower) Timing: other (persistent) Associated Symptoms: + headache (occasional), + urinary symptoms (loss of continence, hematuria, and increased frequency), + weakness (leg), No fevers, No chills, No chest pain, No SOB, No vomiting, No numbness Review of Systems See HPI for pertinent positives & negatives. A total of 10 systems reviewed and were otherwise negative. 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 Nurse's notes were reviewed and I agree with. Family History Stroke FATHER MOTHER Social History Smoking Status: Former Smoker Alcohol Use: none Drug Use: none Marital Status: Occupation Status: employed Current/Historical Medications Scheduled Aspirin (Aspirin Chewable), 81 MG PO QAM Bupropion HCl (Bupropion HCl Sr), 100 MG PO DAILY Diltiazem Hcl Ext Rel (Tiazac), 180 MG PO QAM Duloxetine Hcl (Cymbalta), 30 MG PO QAM Dutasteride (Avodart), 0.5 MG PO HS Eplerenone (Eplerenone), 1 TAB PO QAM Ezetimibe (Zetia), 10 MG PO HS Fish Oil ([place]-3), 1 CAP PO BID Folic Acid (Folvite), 1 MG PO DAILY AFTERNOON Furosemide (Lasix), 40 MG PO QAM Insulin Glargine (Lantus), 10 UNITS SC HS Isosorbide Mononitrate Ext Rel (Imdur Ext Rel), 120 MG PO QAM Lactulose (Chronulac), 15 ML PO TID Lisinopril (Zestril), 10 MG PO QAM Metoprolol Tartrate (Lopressor) (Lopressor), 50 MG PO TID Multivitamin (Multivitamin), 1 TAB PO QAM Pantoprazole (Protonix), 40 MG PO BID Potassium Ext Rel (Klor-Con), 20 MEQ PO BID Rifaximin (Xifaxan), 550 MG PO BID Tamsulosin Hcl (Flomax), 0.4 MG PO HS Warfarin Sod (Jantoven), 7.5 MG PO 3XWK Warfarin Sod (Jantoven), 10 MG PO 4XWK Allergies Coded Allergies: Simvastatin (Verified Adverse Reaction, Intermediate, GI UPSET- OK WITH LIPITOR, 07/01/16) Spironolactone (Verified Adverse Reaction, Mild, NIPPLES HURT, 07/01/16) Pioglitazone (Verified Adverse Reaction, Unknown, DOESN'T REMEMBER, ) Physical Exam Vital Signs Date Time Temp Pulse Resp B/P (MAP) Pulse Ox O2 Delivery O2 Flow Rate FiO2 03/17/17 11:30 97 Room Air 03/17/17 11:05 73 20 168/90 97 Room Air 03/17/17 09:42 36.5 74 18 146/84 97 Room Air Physical Exam General: Well developed well nourished in no acute distress, breathing comfortably on room air. Normal speech HEENT: Normal cephalic atraumatic. Pupils are equal round and reactive to light. Sclerae anicteric. Extraocular movements are intact. Oropharynx is pink with moist mucous membranes. No swelling of the mouth lips or tongue. Neck: Supple with a midline trachea. No meningeal signs or stiffness, no JVD or bruits. No Stridor. Chest: Clear to auscultation bilaterally. No wheezes or rhonchi. No increased work of breathing. Heart: regular rate and rhythm. Abdomen: Soft nontender, nondistended without rebound guarding or rigidity. Extremities: No cyanosis clubbing or edema. No calf tenderness or assymetry. Normal sensation throughout. Spine/Back. No CVA tenderness. Central tenderness. Back pain exacerbated with any movement particularly of the legs. Skin: Good turgor without rashes. Neurologic exam: Cranial nerves two through 12 are intact. Motor and sensation are intact and symmetrical throughout. Medical Decision & Procedures ER Provider Diagnostic Interpretation: X-ray results as stated below per interpretation by me and the radiologist: SINGLE VIEW CHEST FINDINGS: 2 AP, portable, upright an semierect chest radiographs are compared to chest x-ray and chest CT dated 07/01/2016. The examination is degraded by portable technique and patient rotation. The patient is status post midline sternotomy. The heart is enlarged. There is mild pulmonary vascular congestion. Chronic interstitial thickening is similar to previous. No airspace consolidation or large pleural effusion is identified. No pneumothorax is seen. The skeletal structures are osteopenic. The bony thorax is grossly intact. IMPRESSION: Cardiomegaly with mild pulmonary vascular congestion. Electronically signed by: Ronal Brady M.D. 03/17/2017 10:55 AM Laboratory Results 03/17/17 11:10 Red Blood Count 5.77, Mean Corpuscular Volume 76.1, Mean Corpuscular Hemoglobin 24.3, Mean Corpuscular Hemoglobin Concent 31.9, Mean Platelet Volume 10.5, Neutrophils (%) (Auto) 62.1, Lymphocytes (%) (Auto) 25.7, Monocytes (%) (Auto) 10.3, Eosinophils (%) (Auto) 1.7, Basophils (%) (Auto) 0.2, Neutrophils # (Auto ) 2.58, Lymphocytes # (Auto) 1.07, Monocytes # (Auto) 0.43, Eosinophils # (Auto ) 0.07, Basophils # (Auto) 0.01 03/17/17 10:55 Test 03/17/17 10:55 03/17/17 11:10 Prothrombin Time 14.6 SECONDS (9.0-12.0) Prothromb Time International Ratio 1.3 (0.9-1.1) Activated Partial Thromboplast Time 30.8 SECONDS (21.0-31.0) Partial Thromboplastin Ratio 1.2 Anion Gap 7.0 mmol/L (3-11) Est Creatinine Clear Calc Drug Dose 139.6 ml/min Estimated GFR () 105.7 Estimated GFR (Non- 91.2 BUN/Creatinine Ratio 9.2 (10-20) Calcium Level 9.0 mg/dl (8.5-10.1) Total Bilirubin 0.9 mg/dl (0.2-1) Direct Bilirubin 0.3 mg/dl (0-0.2) Aspartate Amino Transf (AST/SGOT) 76 U/L (15-37) Alanine Aminotransferase (ALT/SGPT) 56 U/L (12-78) Alkaline Phosphatase 261 U/L (45-117) Troponin I 0.055 ng/ml (0-0.045) Total Protein 7.9 gm/dl (6.4-8.2) Albumin 2.2 gm/dl (3.4-5.0) Lipase 121 U/L (73-393) White Blood Count 4.16 K/uL (4.8-10.8) Red Blood Count 5.77 M/uL (4.7-6.1) Hemoglobin 14.0 g/dL (14.0-18.0) Hematocrit 43.9 % (42-52) Mean Corpuscular Volume 76.1 fL (80-100) Mean Corpuscular Hemoglobin 24.3 pg (25-34) Mean Corpuscular Hemoglobin Concent 31.9 g/dl (32-36) Platelet Count 189 K/uL (130-400) Mean Platelet Volume 10.5 fL (7.4-10.4) Neutrophils (%) (Auto) 62.1 % Lymphocytes (%) (Auto) 25.7 % Monocytes (%) (Auto) 10.3 % Eosinophils (%) (Auto) 1.7 % Basophils (%) (Auto) 0.2 % Neutrophils # (Auto) 2.58 K/uL (1.4-6.5) Lymphocytes # (Auto) 1.07 K/uL (1.2-3.4) Monocytes # (Auto) 0.43 K/uL (0.11-0.59) Eosinophils # (Auto) 0.07 K/uL (0-0.5) Basophils # (Auto) 0.01 K/uL (0-0.2) RDW Standard Deviation 41.2 fL (36.4-46.3) RDW Coefficient of Variation 15.1 % (11.5-14.5) Immature Granulocyte % (Auto) 0.0 % Immature Granulocyte # (Auto) 0.00 K/uL (0.00-0.02) Laboratory studies as stated above per my review. Medications Administered Medications (Trade) Dose Ordered Sig/Beata Route Start Time Stop Time Status Last Admin Dose Admin Sodium Chloride 250 ml @ 999 mls/hr Q16M STAT IV 03/17/17 10:33 03/17/17 11:04 DC 03/17/17 11:23 999 MLS/HR Sodium Chloride 1,000 ml @ 100 mls/hr Q10H STAT IV 03/17/17 10:33 03/17/17 13:54 DC 03/17/17 11:53 100 MLS/HR Vancomycin HCl 2750 mg/Sodium Chloride 555 ml @ 200 mls/hr NOW STAT IV 03/17/17 10:39 03/17/17 13:25 DC 03/17/17 11:23 200 MLS/HR Cefepime HCl 2000 mg/Dextrose 112.5 ml @ 225 mls/hr NOW STAT IV 03/17/17 11:03 03/17/17 11:32 DC 03/17/17 11:53 225 MLS/HR Ondansetron HCl (Zofran Inj) 4 mg NOW STAT IV 03/17/17 11:31 03/17/17 11:32 DC 03/17/17 11:54 4 MG Hydromorphone HCl (Dilaudid Inj) 0.5 mg NOW STAT IV 03/17/17 11:31 03/17/17 11:32 DC 03/17/17 11:53 0.5 MG Sodium Chloride 1,000 ml @ 75 mls/hr [id number] IV 03/17/17 11:51 04/16/17 11:50 03/17/17 14:13 75 MLS/HR ECG Indication: back/shoulder pain Rate (beats per minute): 74 Rhythm: normal sinus Findings: 1st degree AV block, no acute ischemic change, prolonged QT, other ( Poor baseline. ) Comparison ECG Date: Jul 02, 2016 Change: Sinus has replaced a-flutter. ED Course 1020: Past medical records reviewed. The patient was evaluated in room C3, and a complete history and physical examination were performed. 1033: Ordered Sodium Chloride 1000 ml @ 100 mls/hr IV, Sodium Chloride 250 ml @ 999 mls/hr IV. 1039: Ordered Vancomycin HCl 2750 mg/Sodium Chloride 555 ml @ 200 mls/hr IV. 1103: Ordered Cefepime HCl 2000 mg/Dextrose 112.5 mL @ 225 mL/hr IV. 1105: Upon reevaluation, the patient is resting. I discussed the results and treatment plan with the patient. He verbalized agreement of the treatment plan. The patient will be evaluated for further management. 1131: Ordered Dilaudid Inj 0.5 mg IV, Zofran Inj 4 mg IV. Medical Decision Differentials include, but are not limited to; osteomyelitis, discitis, disc disease, cauda equina and electrolyte or metabolic abnormality. This patient comes in as described above. He was placed in room C3. He's had ongoing back pain for about a month. He has no numbness or weakness on exam however he has excruciating pain when he moves his legs. He has no fever. He did have a recent MRI which was concerning for osteomyelitis/discitis with also some focal disparate protrusion with some possible cauda equina impingement. I do think he needs to be admitted for further treatment and evaluation. I did give him thank IV vancomycin and IV cefepime. Blood work was obtained including blood cultures. I did consult Dr. Finnegan who agrees with the management and feels is most likely medical management given his other comorbidities. I have consulted Dr. Garcia. The patient has been given IV Dilaudid and IV Zofran for pain management. He will be admitted. Medication Reconcilliation Current Medication List: was personally reviewed by me Blood Pressure Screening Patient's blood pressure: Elevated blood pressure Blood pressure disposition: Elevated BP felt to be situational Consults Time Called: 1032 Consulting Physician: Dr. Finnegan -Orthopedics Returned Call: [phone] Discussed the patient's case. Dr. Finnegan agrees with the treatment plan. He will see the patient, and believes the patient will likely require medical management. Additional Consults: Time Called: 1104 Consulted Physician: Dr. Garcia -[facility] [place] Returned Call: [phone] Additional Comments: Discussed the patient's case. The patient will be evaluated for further management. Impression Primary Impression: Osteomyelitis Additional Impression: Lumbar back pain Scribe Attestation The scribe's documentation has been prepared under my direction and personally reviewed by me in its entirety. I confirm that the note above accurately reflects all work, treatment, procedures, and medical decision making performed by me. Departure Information Dispostion Being Evaluated By Hospitalist Referrals Greta Garrett MD (PCP) Patient Instructions My [facility] Problem Qualifiers
[2017-03-17 11:45] LABS: INR 1.3 (0.9-1.1); PARTIAL THROMBOPLASTIN RATIO 1.2; PROTHROMBIN TIME (PATIENT) 14.6 SECONDS (9.0-12.0)
[2017-03-17 11:58] LABS: BUN/CREATININE RATIO 9.2 (10-20); CREATININE 0.87 mg/dl (0.60-1.40); POTASSIUM 4.1 mmol/L (3.5-5.1)
[2017-03-17] MEDS ORDERED: GLUCOSE 40% GEL 15 GM TUBE PO PRN (12:00)
[2017-03-17] MEDS ORDERED: NITROGLYCERIN 0.4 MG SL PER TAB CHARGE SL PRN (12:00)
[2017-03-17] MEDS ORDERED: ACETAMINOPHEN 325 MG TAB PO PRN (12:00)
[2017-03-17] MEDS ORDERED: GLUCOSE 10 TABS/TUBE PO PRN (12:00)
[2017-03-17] MEDS ORDERED: DEXTROSE 50% 50 ML SYR IV PRN (12:00)
[2017-03-17] MEDS ORDERED: GLUCAGON FOR INJ 1 MG VIAL SQ PRN (12:00)
[2017-03-17] MEDS ORDERED: MAGNESIUM HYDROXIDE SUSP 30 ML UDC PO PRN (12:00)
[2017-03-17] MEDS ORDERED: ISOSORBIDE MONONITRATE 60 MG TABCR PO ONE (12:24)
[2017-03-17] MEDS ORDERED: FUROSEMIDE 40 MG TAB PO ONE (12:24)
[2017-03-17] MEDS ORDERED: DILTIAZEM HCL (TIAzac) 180 MG CAPCR PO ONE (12:24)
[2017-03-17] MEDS ORDERED: DULOXETINE (CYMBALTA) 30 MG CAP PO ONE (12:24)
[2017-03-17] MEDS ORDERED: LISINOPRIL 10 MG TAB PO ONE (12:24)
--- NOTE | 2017-03-17 12:35 | History and Physical ---
History & Physical Date & Time of Service: Mar 17, 2017 at 12:16 Chief Complaint: Back Pain Primary Care Physician: Greta Garrett MD History of Present Illness Source: patient 66 y/o M c/o worsening back pain. Pt states that he has been having worsening back pain for about 1 month. He has seen several providers for this including Dr. Quintero and his liver specialist. He has pain from his neck to his heels at times, but pain is the worst around his low back/buttocks. He has been having increasing difficulty with ambulation and weakness for the last 2-3 weeks. Pt states he saw Dr. Quintero last week as he has had multiple spine surgeries with him in the past. MRI was done on 03/10/17. Pt's pain continued to worsen, so he called his PCP for a same day appt. Upon arrival, PCP noted the imaging results and recommended pt for the ED for further eval. Pt has nausea at times, but no emesis. He is having chest pain starting this morning that radiates to his L shoulder. This does not feel like his prior heart related chest pain. Pt denies fever, SOB, abd pain, c/d, swelling. Pt states he did not take his AM meds today due to his pain. Dr. Grider spoke with Dr. Finnegan, who is community service organization director for Dr. Quintero. Dr. Finnegan prefers medical management at this time and will evaluate the pt further after reviewing the MRI. Dr. Grider spoke with pharmacy regarding abx options given liver mass, vanco and cefepime are preferred at this time. Past Medical/Surgical History Medical Problems: (1) Anemia Status: Chronic (2) Diabetes Status: Chronic (3) H/O: Two cardiac bypasses Status: Chronic (4) HTN (hypertension) Status: Chronic (5) Hyperlipidemia Status: Chronic Afib on coumadin Depression Liver mass, being evaluated for possible transplant with [facility] CAD s/p bypass 1993, 2010 PSH: Hx of lumbar spine decompression x2, last was 2014 Hx of spinal infection 06/2015 Family History Family history was reviewed; no changes noted. Both parents with hx of CVA Social History Smoking Status: Former Smoker (quit 2010) Alcohol Use: none Drug Use: marijuana (2-3x/week) Marital Status: Housing status: lives with family Occupational Status: employed Immunizations History of Influenza Vaccine: Yes Influenza Vaccine Date: May 17, 2013 History of Tetanus Vaccine?: utd History of Pneumococcal: Yes Pneumococcal Date: May 17, 2013 History of Hepatitis B Vaccine: Unknown Multi-Drug Resistant Organisms History of MDRO: No Allergies Coded Allergies: Simvastatin (Verified Adverse Reaction, Intermediate, GI UPSET- OK WITH LIPITOR, 07/01/16) Spironolactone (Verified Adverse Reaction, Mild, NIPPLES HURT, 07/01/16) Pioglitazone (Verified Adverse Reaction, Unknown, DOESN'T REMEMBER, ) Home Medications Scheduled Aspirin (Aspirin Chewable), 81 MG PO QAM Bupropion HCl (Bupropion HCl Sr), 100 MG PO DAILY Diltiazem Hcl Ext Rel (Tiazac), 180 MG PO QAM Duloxetine Hcl (Cymbalta), 30 MG PO QAM Dutasteride (Avodart), 0.5 MG PO HS Eplerenone (Eplerenone), 1 TAB PO QAM Ezetimibe (Zetia), 10 MG PO HS Fish Oil (Wright-3), 1 CAP PO BID Folic Acid (Folvite), 1 MG PO DAILY AFTERNOON Furosemide (Lasix), 40 MG PO QAM Insulin Glargine (Lantus), 10 UNITS SC HS Isosorbide Mononitrate Ext Rel (Imdur Ext Rel), 120 MG PO QAM Lactulose (Chronulac), 15 ML PO TID Lisinopril (Zestril), 10 MG PO QAM Metoprolol Tartrate (Lopressor) (Lopressor), 50 MG PO TID Multivitamin (Multivitamin), 1 TAB PO QAM Pantoprazole (Protonix), 40 MG PO BID Potassium Ext Rel (Klor-Con), 20 MEQ PO BID Rifaximin (Xifaxan), 550 MG PO BID Tamsulosin Hcl (Flomax), 0.4 MG PO HS Warfarin Sod (Jantoven), 7.5 MG PO 3XWK Warfarin Sod (Jantoven), 10 MG PO 4XWK Review of Systems Pertinent positives and negatives reviewed in HPI--all others negative Physical Exam Vital Signs Date Time Temp Pulse Resp B/P (MAP) Pulse Ox O2 Delivery O2 Flow Rate FiO2 03/17/17 11:05 73 20 168/90 97 Room Air 03/17/17 09:42 36.5 74 18 146/84 97 Room Air General Appearance: + mild distress (appears in pain at times), + obese Head: normocephalic, atraumatic Eyes: normal inspection, EOMI ENT: hearing grossly normal Neck: supple Respiratory/Chest: normal breath sounds, no respiratory distress Cardiovascular: regular rate, rhythm, no edema Abdomen/GI: non tender, soft Extremities/Musculoskelatal: no calf tenderness, no pedal edema Neurologic/Psych: alert, normal mood/affect, oriented x 3 Skin: normal color, warm/dry Diagnostics Laboratory Results Results Past 24 Hours Test 03/17/17 10:55 03/17/17 11:10 Range/Units Prothrombin Time 14.6 9.0-12.0 SECONDS Prothromb Time International Ratio 1.3 0.9-1.1 Activated Partial Thromboplast Time 30.8 21.0-31.0 SECONDS Partial Thromboplastin Ratio 1.2 Sodium Level 143 136-145 mmol/L Potassium Level 4.1 3.5-5.1 mmol/L Chloride Level 107 98-107 mmol/L Carbon Dioxide Level 29 21-32 mmol/L Anion Gap 7.0 3-11 mmol/L Blood Urea Nitrogen 8 7-18 mg/dl Creatinine 0.87 0.60-1.40 mg/dl Est Creatinine Clear Calc Drug Dose 139.6 ml/min Estimated GFR () 105.7 Estimated GFR (Non- 91.2 BUN/Creatinine Ratio 9.2 10-20 Random Glucose 84 70-99 mg/dl Calcium Level 9.0 8.5-10.1 mg/dl Total Bilirubin 0.9 0.2-1 mg/dl Direct Bilirubin 0.3 0-0.2 mg/dl Aspartate Amino Transf (AST/SGOT) 76 15-37 U/L Alanine Aminotransferase (ALT/SGPT) 56 12-78 U/L Alkaline Phosphatase 261 45-117 U/L Total Protein 7.9 6.4-8.2 gm/dl Albumin 2.2 3.4-5.0 gm/dl Lipase 121 73-393 U/L White Blood Count 4.16 4.8-10.8 K/uL Red Blood Count 5.77 4.7-6.1 M/uL Hemoglobin 14.0 14.0-18.0 g/dL Hematocrit 43.9 42-52 % Mean Corpuscular Volume 76.1 80-100 fL Mean Corpuscular Hemoglobin 24.3 25-34 pg Mean Corpuscular Hemoglobin Concent 31.9 32-36 g/dl Platelet Count 189 130-400 K/uL Mean Platelet Volume 10.5 7.4-10.4 fL Neutrophils (%) (Auto) 62.1 % Lymphocytes (%) (Auto) 25.7 % Monocytes (%) (Auto) 10.3 % Eosinophils (%) (Auto) 1.7 % Basophils (%) (Auto) 0.2 % Neutrophils # (Auto) 2.58 1.4-6.5 K/uL Lymphocytes # (Auto) 1.07 1.2-3.4 K/uL Monocytes # (Auto) 0.43 0.11-0.59 K/uL Eosinophils # (Auto) 0.07 0-0.5 K/uL Basophils # (Auto) 0.01 0-0.2 K/uL RDW Standard Deviation 41.2 36.4-46.3 fL RDW Coefficient of Variation 15.1 11.5-14.5 % Immature Granulocyte % (Auto) 0.0 % Immature Granulocyte # (Auto) 0.00 0.00-0.02 K/uL Microbiology Results 03/17/17 Blood Culture, Received Pending 03/17/17 Blood Culture, Received Pending Diagnostic Radiology CXR: neg for acute MRI done 03/10/17 IMPRESSION: 1. Interval development of increased signal intensity within the intervertebral discs at both the operative and nonoperative levels, most significantly at L5-S1, with associated bony edema and inflammatory change in the paraspinal musculature, also most significantly at L5-S1. Findings are highly concerning for discitis osteomyelitis. 2. Focal disc protrusion with significant epidural inflammation at L5-S1. This results in focal spinal canal narrowing and cauda equina impingement. 3. Chronic impingement of the cauda equina at L2-3. 4. Interval worsening of compression deformities at L1 and L2. 5. Residual scarring and scattered fluid in the subcutaneous tissue at the site of the prior large collection. 6. Postsurgical changes of posterior transpedicular fusion from L3 through S1 with L4-5 interbody spacer. Impression Assessment and Plan 66 y/o M who was admitted on 03/17 for osteomyelitis/discitis. Osteomyelitis/discitis: hx of same As noted on MRI from 03/10/17 Vanco/cefepime as per pharmacy recs given liver mass WBC WNL, afebrile Blood cx pending ID c/s pending Ortho c/s pending, although discussion between ED and ortho recs for medical management Chest pain: hx of bypass x2 Trop pending, EKG WNL Serial trops Place on tele and if trops are negative, can likely go to medical floor tomorrow CXR neg for acute Holding home asp 81mg dose given possible need for OR Afib: stable On coumadin 10mg ///, 7.5mg other days Will hold for now given possible need for OR Heparin drip for now DM: stable, A1c pending Lantus as at home with SSI Zetia as at home Liver mass: AST and AP with mild elevation Monitor Follows with [facility] if needed HTN: stable, continue home meds Missed AM meds, will give now Depression: continue home meds, given AM dosing now Other: Full code DM/AHA diet Heparin for DVT proph Level of Care Telemetry Resuscitation Status FULL RESUSCITATION VTE Prophylaxis VTE Risk Assessment Done? Y/N: Yes Risk Level: Low
[2017-03-17 13:20] VITALS: BP 160/97; PULSE 74; TEMP 36.7; O2SAT 96
[2017-03-17] MEDS: SODIUM CHLORIDE 0.9% 1000ML 1,000 ML IV SCH (14:13)
[2017-03-17] MEDS: METOPROLOL TARTRATE 50 MG TAB PO SCH ×2 (14:13→20:24)
[2017-03-17] MEDS: HEPARIN 25,000 UNIT/500ML D5W 500 ML IV PRN ×2 (14:20→21:25)
--- NOTE | 2017-03-17 14:24 | Pharmacy Progress Note ---
Pharmacy Antibiotic Consult Date of Service: Mar 17, 2017. Pharmacy Dosing Scope Pharmacy is consulted to initiate vancomycin IV dosing therapy, order appropriate labs and adjust drug dose/frequency. Subjective The patient is a 66 year old male admitted on Mar 17, 2017 at 12:05. Objective Height (Feet): 6 Height (Inches): 2.00 Weight (Kilograms): 164.200 Lab Results (24hrs): Test 03/17/17 10:55 03/17/17 11:10 Prothrombin Time 14.6 SECONDS (9.0-12.0) Prothromb Time International Ratio 1.3 (0.9-1.1) Activated Partial Thromboplast Time 30.8 SECONDS (21.0-31.0) Partial Thromboplastin Ratio 1.2 Sodium Level 143 mmol/L (136-145) Potassium Level 4.1 mmol/L (3.5-5.1) Chloride Level 107 mmol/L (98-107) Carbon Dioxide Level 29 mmol/L (21-32) Anion Gap 7.0 mmol/L (3-11) Blood Urea Nitrogen 8 mg/dl (7-18) Creatinine 0.87 mg/dl (0.60-1.40) Est Creatinine Clear Calc Drug Dose 139.6 ml/min Estimated GFR () 105.7 Estimated GFR (Non- 91.2 BUN/Creatinine Ratio 9.2 (10-20) Random Glucose 84 mg/dl (70-99) Calcium Level 9.0 mg/dl (8.5-10.1) Total Bilirubin 0.9 mg/dl (0.2-1) Direct Bilirubin 0.3 mg/dl (0-0.2) Aspartate Amino Transf (AST/SGOT) 76 U/L (15-37) Alanine Aminotransferase (ALT/SGPT) 56 U/L (12-78) Alkaline Phosphatase 261 U/L (45-117) Troponin I 0.055 ng/ml (0-0.045) Total Protein 7.9 gm/dl (6.4-8.2) Albumin 2.2 gm/dl (3.4-5.0) Lipase 121 U/L (73-393) White Blood Count 4.16 K/uL (4.8-10.8) Red Blood Count 5.77 M/uL (4.7-6.1) Hemoglobin 14.0 g/dL (14.0-18.0) Hematocrit 43.9 % (42-52) Mean Corpuscular Volume 76.1 fL (80-100) Mean Corpuscular Hemoglobin 24.3 pg (25-34) Mean Corpuscular Hemoglobin Concent 31.9 g/dl (32-36) Platelet Count 189 K/uL (130-400) Mean Platelet Volume 10.5 fL (7.4-10.4) Neutrophils (%) (Auto) 62.1 % Lymphocytes (%) (Auto) 25.7 % Monocytes (%) (Auto) 10.3 % Eosinophils (%) (Auto) 1.7 % Basophils (%) (Auto) 0.2 % Neutrophils # (Auto) 2.58 K/uL (1.4-6.5) Lymphocytes # (Auto) 1.07 K/uL (1.2-3.4) Monocytes # (Auto) 0.43 K/uL (0.11-0.59) Eosinophils # (Auto) 0.07 K/uL (0-0.5) Basophils # (Auto) 0.01 K/uL (0-0.2) RDW Standard Deviation 41.2 fL (36.4-46.3) RDW Coefficient of Variation 15.1 % (11.5-14.5) Immature Granulocyte % (Auto) 0.0 % Immature Granulocyte # (Auto) 0.00 K/uL (0.00-0.02) Micro Results: Date/Time Source Procedure Growth Status 03/17/17 11:10 Blood Blood Culture Pending Received 03/17/17 10:55 Blood Blood Culture Pending Received Assessment & Plan Assessment: 66 yo male with worsening back pain sent to ED after imaging results suggestive of osteomyelitis/discitis PMH included liver mass Scr 0.87, CrCl >100 (used age adjusted CrCl 91), population based kinetics, Ke 0.0799, T1/2 ~ 9 hrs Plan: Received loading dose fo 2750 mg x 1 (17 mg/kg) Maintenance dose of 2000 mg q10H Patient at risk of accumulation due to BMI > 35, however want to target higher trough for osteomyelitis Goal trough 18-20 mcg/mL Trough has been ordered for 03/18 @ [id number] Pharmacy will continue to follow and will adjust dose/frequency as necessary. Thank you
[2017-03-17] MEDS ORDERED: VANCOMYCIN CONSULT ACTIVE PRN (14:30)
[2017-03-17] MEDS ORDERED: INFLUENZA VIRUS QUAD VACCINE 0.5 ML SYR IM. ONE (14:45)
[2017-03-17] MEDS ORDERED: INFLUENZA ADMINISTRATION CHARGE ONE (14:45)
--- NOTE | 2017-03-17 15:01 | Progress Note ---
Progress Note Date of Service Mar 17, 2017. Progress Note ID Consult Dictated #[id number] A/P: 1. Discitis/Osteomyelitis spine -Continue abx, follow cultures -Ortho eval pending -Low threshold for transfer for neurosurgery eval -Will follow, thank you
[2017-03-17 15:13] VITALS: BP 134/86; PULSE 73; TEMP 36.8; O2SAT 97
--- NOTE | 2017-03-17 15:18 | INFECT. DISEASE CONSULTATION ---
DATE OF CONSULTATION: 03/17/2017 REQUESTING PHYSICIAN: Dr. Gracia. HISTORY OF PRESENT ILLNESS: This is a 66-year-old gentleman who was admitted after he had worsening lower back pain. He states this has progressed over the past 3-4 weeks to the point where he is not able to ambulate secondary to pain. He denies any trauma to the area. He does have a history of spinal surgeries, most recently done in June of 2015. At that time, there was a concern for infection and he was seen by infectious diseases in the hospital. He did have 1 blood culture with coagulase negative staph and negative intraoperative cultures. He was given a prolonged course of daptomycin and Rocephin for 6 weeks postoperatively empirically, although no definitive pathogens were isolated. He was to follow up with ID for oral antibiotics; however, he did not follow through with this as he states he felt significantly better. He was doing well up until a month ago when he had sudden onset of repeated back pain. In the interim since his last hospitalization in 2015, he has been diagnosed with liver cancer and is currently waiting his options with regards to treatment of this. His is present with him at the bedside. He did get Dilaudid in the Emergency Room and currently, he feels that his pain is well controlled; however, he continues to complain of low back pain. He denies any fevers or chills. He denies any rigors, sweating or shaking. He does have intact sensation in his lower extremities and is able to move his lower extremities, but he is having worsening pain. He did follow up with his orthopedic surgeon in late February due to his worsening back pain and an MRI was ordered. He did undergo MRI on March 10. This showed the hardware to be intact from L3-S1. At L5-S1, there was a complete effacement of the CSF, crowding of the cauda equina and epidural enhancement. This was also found at L2 and L3. There was a previous fluid collection, which was no longer identified; however, the findings showed significant edema and enhancement, which were highly concerning for diskitis and osteomyelitis. He continued to have worsening pain. He was not on any antibiotics prior to admission to the hospital. He states that his last antibiotic dose was many months ago and just a 1-time dose prior to dental cleaning. He continued to have pain and followed up with his primary care physician today. The MRI was reviewed and he was sent to the ER for admission and further evaluation by orthopedic surgery. He is currently pending an ortho evaluation. He was placed on vancomycin and cefepime empirically. Blood cultures were obtained and are pending. He has been afebrile and hemodynamically stable since admission to the hospital. His white blood cell count was 4.1. He denies any chest pain, cough or shortness of breath. He denies any nausea, vomiting, or diarrhea. He has no loss of bowel or bladder. He has no urinary complaints. His appetite has been stable. His remaining review of systems is reviewed and are negative. PAST MEDICAL HISTORY: Significant for anemia, type 2 diabetes, coronary artery disease, hypertension, hyperlipidemia, AFib on Coumadin, depression, recent diagnosis with liver cancer, awaiting a questionable transplant at [facility], which has been postponed due to his ongoing back pain. He has had cardiac bypass in 1993 and 2010. Lumbar spine surgery in 2014 and a revision in 2016 secondary to suspected infection and fluid collection. FAMILY HISTORY: Noncontributory. SOCIAL HISTORY: Significant for a history of tobacco use. He quit in 2010. He denies any alcohol use. He occasionally smokes marijuana. He is and lives with his . ALLERGIES: HE HAS ALLERGIES TO SIMVASTATIN, SPIRONOLACTONE AND PIOGLITAZONE. CURRENT MEDICATIONS: Include Wellbutrin, diltiazem, Cymbalta, folic acid, Lasix, Imdur, lisinopril, multivitamins, eplerenone, vancomycin, Zetia, Lantus, Protonix, rifaximin, Flomax, cefepime, potassium, NovoLog, lactulose, Lopressor, Tylenol, milk of magnesia, and Zofran. PHYSICAL EXAMINATION: VITAL SIGNS: He is afebrile, pulse 74, respiratory rate 20, blood pressure is 160/97, and oxygen saturation is 94%-97% on room air. GENERAL: He is awake, alert and oriented x3. He is in no acute distress on my examination. HEENT: Extraocular muscles are intact. Mucous membranes are moist. HEART: Regular. LUNGS: Clear. ABDOMEN: Soft, nontender, and nondistended. There is no lower extremity edema. SKIN: Without rash. He is able to move all upper and lower extremities equally. There is some pain with leg movement. Sensation is intact. LABORATORY STUDIES: CBC reveals a white blood cell count of 4.1, hemoglobin 14, and platelets are 189. Chemistry panel reveals a sodium of 143, potassium 4.1, chloride 107, bicarbonate 29, BUN 8, creatinine 0.8 and glucose is 261. Troponin is mildly elevated at 0.055. Blood cultures are pending. Chest x-ray done in the Emergency Room was negative for infiltrate. MRI done on the is as above. ASSESSMENT AND PLAN: Questionable infected hardware of the spine with diskitis, osteomyelitis and crowding of the cauda equina. He will remain on empiric antibiotics. Blood cultures are pending. An orthopedic evaluation is pending ____ threshold for transfer for neurosurgical evaluation should he have any decompensation. Thank you for this consultation.
[2017-03-17] MEDS: [UNRECOGNIZED DRUG - OTHER] PO SCH ×2 (15:22→23:33)
[2017-03-17] MEDS: POTASSIUM CHLORIDE 20 MEQ TABCR PO SCH (15:37)
[2017-03-17] MEDS: LACTULOSE SYRUP 10 GM/15 ML BTL 473 ML PO SCH ×2 (15:37→20:35)
[2017-03-17] MEDS: INSULIN ASPART 100 UNITS/ML 3 ML PEN SC SCH ×2 (17:23→20:32)
[2017-03-17] MEDS ORDERED: NURSING VERBAL MED ORDER STA (17:49)
[2017-03-17] MEDS ORDERED: METOPROLOL TARTRATE 1 MG/ML VIAL ONE (18:06)
[2017-03-17 19:34] VITALS: BP 126/77; PULSE 44; TEMP 36.5; O2SAT 94
[2017-03-17] MEDS: CEFEPIME IV 1,000 MG in DEXTROSE 5% 100ML 100 ML IV SCH (19:54)
[2017-03-17] MEDS: RIFAXIMIN TAB 550 MG TAB PO SCH (20:34)
[2017-03-17] MEDS: PANTOprazole SOD 40 MG TAB PO SCH (20:34)
[2017-03-17] MEDS: EZETIMIBE 10MG TAB PO SCH (20:34)
[2017-03-17] MEDS: TAMSULOSIN HCL 0.4 MG CAP PO SCH (20:35)
[2017-03-17 20:39] LABS: PARTIAL THROMBOPLASTIN RATIO 2.9
[2017-03-17] MEDS: INSULIN GLARGINE SOLOSTAR 100 UNITS/ML 3 ML PEN SC SCH (20:40)
[2017-03-17] MEDS: VANCOMYCIN INJ 2,000 MG in SODIUM CHLORIDE 0.9% 500ML 500 ML IV SCH (21:16)
[2017-03-17 23:29] VITALS: BP 142/78; PULSE 55; TEMP 36.8; O2SAT 96
[2017-03-17] MEDS ORDERED: NURSING VERBAL MED ORDER ONE (23:30)
[2017-03-17] MEDS: TRAMADOL HCL 50 MG TAB PO PRN (23:47)
[2017-03-18] VITALS (9 sets, daily range): BP systolic 105–153; BP diastolic 58–81; PULSE 51–73; TEMP 36.5–37; O2SAT 92–98
[2017-03-18] MEDS: SODIUM CHLORIDE 0.9% 1000ML 1,000 ML IV SCH ×2 (00:36→12:05)
[2017-03-18 03:32] LABS: CREATININE 0.6 mg/dl (0.60-1.40)
[2017-03-18 03:38] LABS: INR 1.4 (0.9-1.1); PARTIAL THROMBOPLASTIN RATIO 4.8; PROTHROMBIN TIME (PATIENT) 15.4 SECONDS (9.0-12.0)
[2017-03-18 03:40] LABS: HEMATOCRIT 36.3 % (42-52); MEAN CELL VOLUME 75.3 fL (80-100); MEAN CORPUSCULAR HEMOGLOBIN 23.9 pg (25-34); MEAN CORPUSCULAR HGB CONC 31.7 g/dl (32-36); MEAN PLATELET VOLUME 9.8 fL (7.4-10.4); PLATELET COUNT 141 K/uL (130-400); RED BLOOD COUNT 4.82 M/uL (4.7-6.1); WHITE BLOOD COUNT 3.87 K/uL (4.8-10.8)
[2017-03-18] MEDS: CEFEPIME IV 1,000 MG in DEXTROSE 5% 100ML 100 ML IV SCH ×3 (03:47→19:45)
[2017-03-18 07:27] LABS: ESTIMATED AVERAGE GLUCOSE 143 mg/dl
[2017-03-18 08:00] LABS: HA1C FLAG Variant Hgb (Normal)
[2017-03-18] MEDS: [UNRECOGNIZED DRUG - OTHER] PO SCH ×3 (08:00→23:06)
[2017-03-18 08:13] LABS: INR 1.4 (0.9-1.1); PROTHROMBIN TIME (PATIENT) 15.2 SECONDS (9.0-12.0)
[2017-03-18] MEDS: LACTULOSE SYRUP 10 GM/15 ML BTL 473 ML PO SCH ×3 (08:21→19:46)
[2017-03-18] MEDS: RIFAXIMIN TAB 550 MG TAB PO SCH ×2 (08:21→19:48)
[2017-03-18] MEDS: FUROSEMIDE 40 MG TAB PO SCH (08:24)
[2017-03-18] MEDS: METOPROLOL TARTRATE 50 MG TAB PO SCH ×3 (08:24→19:47)
[2017-03-18] MEDS: BuPROPion SR 100 MG TABCR PO SCH (08:24)
[2017-03-18] MEDS: PANTOprazole SOD 40 MG TAB PO SCH ×2 (08:24→19:48)
[2017-03-18] MEDS: DILTIAZEM HCL (TIAzac) 180 MG CAPCR PO SCH (08:25)
[2017-03-18] MEDS: MULTIVITAMIN TAB PO SCH (08:25)
[2017-03-18] MEDS: LISINOPRIL 10 MG TAB PO SCH (08:25)
[2017-03-18] MEDS: DULOXETINE (CYMBALTA) 30 MG CAP PO SCH (08:26)
[2017-03-18] MEDS: POTASSIUM CHLORIDE 20 MEQ TABCR PO SCH ×2 (08:26→17:16)
[2017-03-18] MEDS: ISOSORBIDE MONONITRATE 60 MG TABCR PO SCH (08:26)
[2017-03-18] MEDS: HEPARIN 25,000 UNIT/500ML D5W 500 ML IV PRN (08:34)
[2017-03-18] MEDS: INSULIN ASPART 100 UNITS/ML 3 ML PEN SC SCH ×4 (08:40→20:56)
[2017-03-18] MEDS: VANCOMYCIN INJ 2,000 MG in SODIUM CHLORIDE 0.9% 500ML 500 ML IV SCH ×2 (08:44→18:29)
--- NOTE | 2017-03-18 11:03 | Clinical Documentation Query ---
CLINICAL DOCUMENTATION QUERY A 66 yo male admitted for worsening back pain. In your clinical opinion is this patient being managed for: ( ) Chronic diastolic CHF ( ) Not Agree ( ) Other explanation of clinical findings (Please Explain) ( ) Unable to determine (Please Define) ( xx ) Need to Discuss The medical record reflects the following clinical findings, treatment, and risk factors. Clinical Indicators: Echo 07/02/16 documented diastolic dysfunction, atrial flutter, HTN, CXR documented cardiomegaly with mild pulmonary vascular congestion Treatment: home/continued lasix 40mg daily, I&O, daily wts Risk Factors: Atrial flutter, hx cardiac bypass x 2, HTN Please clarify and document your clinical opinion in the progress notes and discharge summary. Terms such as "probable", "suspected", "likely", "questionable", "possible", or "still to be ruled out" are acceptable. IF IN AGREEMENT, YOU MUST DOCUMENT ABOVE DIAGNOSTIC STATEMENT IN DAILY PROGRESS NOTES AND DISCHARGE SUMMARY. This document is not part of the patient's record. Thank You, Rasheeda Thomas RN [phone]
[2017-03-18] MEDS: TRAMADOL HCL 50 MG TAB PO PRN ×3 (11:15→19:46)
[2017-03-18 14:59] LABS: PARTIAL THROMBOPLASTIN RATIO 2.5
--- NOTE | 2017-03-18 15:13 | Progress Note ---
Subjective Date of Service: Mar 18, 2017. Subjective pt with PT at time of exam, still with difficulty ambulating due to pain. Blood cultures pending, afebrile overnight. remains on emperic abx, tolerating well. no overnight events. Problem List Medical Problems: (1) Constricting chest pain often radiating down left upper extremity Status: Acute (2) Lumbar back pain Status: Acute (3) Osteomyelitis Status: Acute Objective Vital Signs Date Time Temp Pulse Resp B/P (MAP) Pulse Ox O2 Delivery O2 Flow Rate FiO2 03/18/17 11:03 37.0 58 20 105/58 (74) 92 Room Air 03/18/17 08:00 94 Room Air 03/18/17 07:17 36.5 68 18 106/67 (80) 94 Room Air 03/18/17 04:53 36.6 64 16 113/68 (83) 93 Room Air 03/18/17 04:00 Room Air 03/18/17 00:00 Room Air 03/17/17 23:29 36.8 55 18 142/78 (99) 96 Room Air 03/17/17 20:00 Room Air 03/17/17 19:34 36.5 44 18 126/77 (93) 94 Room Air 03/17/17 18:09 74 135/67 03/17/17 16:00 Room Air 03/17/17 15:13 36.8 73 18 134/86 (102) 97 Room Air Laboratory Results Last 24 Hours Test 03/17/17 16:07 03/17/17 18:02 03/17/17 20:08 03/17/17 20:20 Bedside Glucose 120 mg/dl 94 mg/dl Troponin I 0.050 ng/ml Activated Partial Thromboplast Time 76.2 SECONDS Partial Thromboplastin Ratio 2.9 Test 03/18/17 00:05 03/18/17 02:59 03/18/17 07:15 03/18/17 07:45 Troponin I 0.055 ng/ml White Blood Count 3.87 K/uL Red Blood Count 4.82 M/uL Hemoglobin 11.5 g/dL Hematocrit 36.3 % Mean Corpuscular Volume 75.3 fL Mean Corpuscular Hemoglobin 23.9 pg Mean Corpuscular Hemoglobin Concent 31.7 g/dl RDW Standard Deviation 40.9 fL RDW Coefficient of Variation 15.0 % Platelet Count 141 K/uL Mean Platelet Volume 9.8 fL Prothrombin Time 15.4 SECONDS 15.2 SECONDS Prothromb Time International Ratio 1.4 1.4 Activated Partial Thromboplast Time 124.2 SECONDS 78.4 SECONDS Partial Thromboplastin Ratio 4.8 3.0 Creatinine 0.60 mg/dl Est Creatinine Clear Calc Drug Dose 202.4 ml/min Estimated GFR () 123.2 Estimated GFR (Non- 106.3 Estimated Average Glucose 143 mg/dl Hemoglobin A1c 6.6 % Hemoglobin A1c Pathologist Comment Bedside Glucose 83 mg/dl Test 03/18/17 11:29 03/18/17 14:24 Bedside Glucose 142 mg/dl Activated Partial Thromboplast Time 65.8 SECONDS Partial Thromboplastin Ratio 2.5 Assessment and Plan (1) Lumbar back pain Assessment & Plan: ? osteo/discitis on outpt MRI 03/10. remains on abx, blood cultures pending. pt is afebrile to date. Would consult orhto for review of MRI. would have low threshold for transfer for neurosurgery eval.
[2017-03-18] MEDS ORDERED: VANCOMYCIN TROUGH SCH (17:30)
--- NOTE | 2017-03-18 18:15 | Progress Note ---
Subjective Date of Service: Mar 18, 2017. Problem List Medical Problems: (1) Constricting chest pain often radiating down left upper extremity Status: Acute (2) Lumbar back pain Status: Acute (3) Osteomyelitis Status: Acute Objective Vital Signs Date Time Temp Pulse Resp B/P (MAP) Pulse Ox O2 Delivery O2 Flow Rate FiO2 03/18/17 07:17 36.5 68 18 106/67 (80) 94 Room Air 03/18/17 04:53 36.6 64 16 113/68 (83) 93 Room Air 03/18/17 04:00 Room Air 03/18/17 00:00 Room Air 03/17/17 23:29 36.8 55 18 142/78 (99) 96 Room Air 03/17/17 20:00 Room Air 03/17/17 19:34 36.5 44 18 126/77 (93) 94 Room Air 03/17/17 18:09 74 135/67 03/17/17 16:00 Room Air 03/17/17 15:13 36.8 73 18 134/86 (102) 97 Room Air 03/17/17 13:20 36.7 74 20 160/97 (118) 96 Room Air 03/17/17 12:47 79 20 191/100 97 03/17/17 12:33 77 16 191/100 94 Room Air 03/17/17 11:30 97 Room Air 03/17/17 11:05 73 20 168/90 97 Room Air 03/17/17 09:42 36.5 74 18 146/84 97 Room Air Laboratory Results Last 24 Hours Test 03/17/17 10:55 03/17/17 11:10 03/17/17 16:07 03/17/17 18:02 Prothrombin Time 14.6 SECONDS Prothromb Time International Ratio 1.3 Activated Partial Thromboplast Time 30.8 SECONDS Partial Thromboplastin Ratio 1.2 Sodium Level 143 mmol/L Potassium Level 4.1 mmol/L Chloride Level 107 mmol/L Carbon Dioxide Level 29 mmol/L Anion Gap 7.0 mmol/L Blood Urea Nitrogen 8 mg/dl Creatinine 0.87 mg/dl Est Creatinine Clear Calc Drug Dose 139.6 ml/min Estimated GFR () 105.7 Estimated GFR (Non- 91.2 BUN/Creatinine Ratio 9.2 Random Glucose 84 mg/dl Calcium Level 9.0 mg/dl Total Bilirubin 0.9 mg/dl Direct Bilirubin 0.3 mg/dl Aspartate Amino Transf (AST/SGOT) 76 U/L Alanine Aminotransferase (ALT/SGPT) 56 U/L Alkaline Phosphatase 261 U/L Troponin I 0.055 ng/ml 0.050 ng/ml Total Protein 7.9 gm/dl Albumin 2.2 gm/dl Lipase 121 U/L White Blood Count 4.16 K/uL Red Blood Count 5.77 M/uL Hemoglobin 14.0 g/dL Hematocrit 43.9 % Mean Corpuscular Volume 76.1 fL Mean Corpuscular Hemoglobin 24.3 pg Mean Corpuscular Hemoglobin Concent 31.9 g/dl Platelet Count 189 K/uL Mean Platelet Volume 10.5 fL Neutrophils (%) (Auto) 62.1 % Lymphocytes (%) (Auto) 25.7 % Monocytes (%) (Auto) 10.3 % Eosinophils (%) (Auto) 1.7 % Basophils (%) (Auto) 0.2 % Neutrophils # (Auto) 2.58 K/uL Lymphocytes # (Auto) 1.07 K/uL Monocytes # (Auto) 0.43 K/uL Eosinophils # (Auto) 0.07 K/uL Basophils # (Auto) 0.01 K/uL RDW Standard Deviation 41.2 fL RDW Coefficient of Variation 15.1 % Immature Granulocyte % (Auto) 0.0 % Immature Granulocyte # (Auto) 0.00 K/uL Bedside Glucose 120 mg/dl Test 03/17/17 20:08 03/17/17 20:20 03/18/17 00:05 03/18/17 02:59 Activated Partial Thromboplast Time 76.2 SECONDS 124.2 SECONDS Partial Thromboplastin Ratio 2.9 4.8 Bedside Glucose 94 mg/dl Troponin I 0.055 ng/ml White Blood Count 3.87 K/uL Red Blood Count 4.82 M/uL Hemoglobin 11.5 g/dL Hematocrit 36.3 % Mean Corpuscular Volume 75.3 fL Mean Corpuscular Hemoglobin 23.9 pg Mean Corpuscular Hemoglobin Concent 31.7 g/dl RDW Standard Deviation 40.9 fL RDW Coefficient of Variation 15.0 % Platelet Count 141 K/uL Mean Platelet Volume 9.8 fL Prothrombin Time 15.4 SECONDS Prothromb Time International Ratio 1.4 Creatinine 0.60 mg/dl Est Creatinine Clear Calc Drug Dose 202.4 ml/min Estimated GFR () 123.2 Estimated GFR (Non- 106.3 Estimated Average Glucose 143 mg/dl Hemoglobin A1c 6.6 % Test 03/18/17 07:15 Assessment and Plan 66 y/o M with acute osteomyelitis/discitis. Osteomyelitis/discitis: noted on MRI from 03/10/17, Vanco/cefepime Blood cx pending ID and ortho spine is following, decision to have intervention, transfer or conservative care with iv antibiotics being considered Chest pain: hx of bypass [id number] troponins, home asp 81mg dose given possible need for OR Afib: now on hold, coumadin usually is 10mg ///, 7.5mg other days Heparin drip for now, metoprolol and diltiazem DM: stable,Lantus plus SSI, Zetia as at home, A1c pending Liver mass: AST and AP with mild elevation, on xifaxin, Follows with [facility] if needed HTN: chronic diastolic heart failure-stable, metoprolol, diltiazem, lasix, imdur , zestril Depression: wellbutrin Other: Full code Heparin for DVT proph
[2017-03-18] MEDS: TAMSULOSIN HCL 0.4 MG CAP PO SCH (19:47)
[2017-03-18] MEDS: EZETIMIBE 10MG TAB PO SCH (19:48)
--- NOTE | 2017-03-18 20:48 | Pharmacy Progress Note ---
Pharmacy Abx Dose Short Note Date of Service Mar 18, 2017. Assessment & Plan Kelsy's trough came back at 12.8mcg/mL. This was drawn prior to Css. Given Mr. Morales's habitus and renal fxn it's difficult to extrapolate where steady state will be. Will re-check 03/19/17@1330 to ensure he is reaching therapeutic concentrations. Continue current dose and schedule for now.
[2017-03-18] MEDS: INSULIN GLARGINE SOLOSTAR 100 UNITS/ML 3 ML PEN SC SCH (21:01)
[2017-03-18] MEDS: MoRPHine SULFATE 4 MG/ML 1 ML CARP\\VIAL IV PRN (21:27)
[2017-03-19] VITALS (7 sets, daily range): BP systolic 145–162; BP diastolic 72–94; PULSE 47–76; TEMP 36.4–37; O2SAT 94–97
[2017-03-19] MEDS: SODIUM CHLORIDE 0.9% 1000ML 1,000 ML IV SCH ×2 (04:20→15:10)
[2017-03-19] MEDS: CEFEPIME IV 1,000 MG in DEXTROSE 5% 100ML 100 ML IV SCH ×3 (04:20→19:46)
[2017-03-19] MEDS: VANCOMYCIN INJ 2,000 MG in SODIUM CHLORIDE 0.9% 500ML 500 ML IV SCH ×2 (04:20→14:06)
[2017-03-19] MEDS: HEPARIN 25,000 UNIT/500ML D5W 500 ML IV PRN ×2 (04:48→08:26)
[2017-03-19] MEDS: MoRPHine SULFATE 4 MG/ML 1 ML CARP\\VIAL IV PRN ×4 (05:45→19:51)
[2017-03-19] MEDS: [UNRECOGNIZED DRUG - OTHER] PO SCH ×3 (07:31→22:58)
[2017-03-19] MEDS: DILTIAZEM HCL (TIAzac) 180 MG CAPCR PO SCH (07:37)
[2017-03-19] MEDS: DULOXETINE (CYMBALTA) 30 MG CAP PO SCH (07:37)
[2017-03-19] MEDS: ISOSORBIDE MONONITRATE 60 MG TABCR PO SCH (07:37)
[2017-03-19] MEDS: BuPROPion SR 100 MG TABCR PO SCH (07:37)
[2017-03-19] MEDS: POTASSIUM CHLORIDE 20 MEQ TABCR PO SCH ×2 (07:37→17:46)
[2017-03-19] MEDS: RIFAXIMIN TAB 550 MG TAB PO SCH ×2 (07:37→19:58)
[2017-03-19] MEDS: MULTIVITAMIN TAB PO SCH (07:37)
[2017-03-19] MEDS: PANTOprazole SOD 40 MG TAB PO SCH ×2 (07:37→19:58)
[2017-03-19] MEDS: LISINOPRIL 10 MG TAB PO SCH (07:37)
[2017-03-19] MEDS: LACTULOSE SYRUP 10 GM/15 ML BTL 473 ML PO SCH ×3 (07:38→19:56)
[2017-03-19] MEDS: FUROSEMIDE 40 MG TAB PO SCH (07:38)
[2017-03-19] MEDS: METOPROLOL TARTRATE 50 MG TAB PO SCH ×3 (07:38→19:58)
[2017-03-19 08:05] LABS: PARTIAL THROMBOPLASTIN RATIO 2.5
[2017-03-19 08:17] LABS: CREATININE 0.54 mg/dl (0.60-1.40)
[2017-03-19] MEDS: INSULIN ASPART 100 UNITS/ML 3 ML PEN SC SCH ×4 (08:50→21:00)
--- NOTE | 2017-03-19 10:59 | Orthopedic Consultation ---
Orthopedic Consultation Date of Consultation: Mar 19, 2017. Attending Physician: Siddhartha Jenkins M.D. Reason for Consultation: Back pain evidence of lumbar discitis History of Present Illness 66-year-old male that this present with worsening back pain over the past 4-5 weeks. He does have chronic liver disease and is attempting to get on the liver transplant list. He was recently seen by my partner would performed a few surgeries on him in the past. Updated MRI does does demonstrate progressive collapse of the L1-L2 vertebral bodies evidence of osteomyelitis. He states his symptoms mostly involve the lumbar spine. He gets weakness to the lower extremities with standing and ambulation. He states this has been present for some time but has increased. He denies any perineal numbness or tingling. He denies any loss of function in his bowel or bladder. Past Medical/Surgical History Medical Problems: (1) Constricting chest pain often radiating down left upper extremity Status: Acute (2) Lumbar back pain Status: Acute (3) Osteomyelitis Status: Acute Family History Stroke FATHER MOTHER Social History Smoking Status: Former Smoker (quit 2010) Alcohol Use: none Drug Use: marijuana (2-3x/week) Marital Status: Occupation Status: employed Allergies Coded Allergies: Simvastatin (Verified Adverse Reaction, Intermediate, GI UPSET- OK WITH LIPITOR, 07/01/16) Spironolactone (Verified Adverse Reaction, Mild, NIPPLES HURT, 07/01/16) Pioglitazone (Verified Adverse Reaction, Unknown, DOESN'T REMEMBER, ) Home Medications Scheduled Aspirin (Aspirin Chewable), 81 MG PO QAM Bupropion HCl (Bupropion HCl Sr), 100 MG PO DAILY Diltiazem Hcl Ext Rel (Tiazac), 180 MG PO QAM Duloxetine Hcl (Cymbalta), 30 MG PO QAM Dutasteride (Avodart), 0.5 MG PO HS Eplerenone (Eplerenone), 1 TAB PO QAM Ezetimibe (Zetia), 10 MG PO HS Fish Oil ([place]-3), 1 CAP PO BID Folic Acid (Folvite), 1 MG PO DAILY AFTERNOON Furosemide (Lasix), 40 MG PO QAM Insulin Glargine (Lantus), 10 UNITS SC HS Isosorbide Mononitrate Ext Rel (Imdur Ext Rel), 120 MG PO QAM Lactulose (Chronulac), 15 ML PO TID Lisinopril (Zestril), 10 MG PO QAM Metoprolol Tartrate (Lopressor) (Lopressor), 50 MG PO TID Multivitamin (Multivitamin), 1 TAB PO QAM Pantoprazole (Protonix), 40 MG PO BID Potassium Ext Rel (Klor-Con), 20 MEQ PO BID Rifaximin (Xifaxan), 550 MG PO BID Tamsulosin Hcl (Flomax), 0.4 MG PO HS Warfarin Sod (Jantoven), 7.5 MG PO 3XWK Warfarin Sod (Jantoven), 10 MG PO 4XWK Current Inpatient Medications Current Inpatient Medications Medications (Trade) Dose Ordered Sig/Beata Route Start Time Stop Time Status Last Admin Dose Admin Sodium Chloride 1,000 ml @ 75 mls/hr [id number] IV 03/17/17 11:51 04/16/17 11:50 03/19/17 04:20 75 MLS/HR Acetaminophen (Tylenol Tab) 650 mg Q4H PRN PO 03/17/17 12:00 04/16/17 11:59 Magnesium Hydroxide (Milk Of Magnesia Susp) 30 ml Q12H PRN PO 03/17/17 12:00 04/16/17 11:59 Ondansetron HCl (Zofran Inj) 4 mg Q6H PRN IV 03/17/17 12:00 04/16/17 11:59 Nitroglycerin (Nitrostat Tab) 0.4 mg UD PRN SL 03/17/17 12:00 04/16/17 11:59 Insulin Aspart (novoLOG ASPART) SLIDING SCALE If C... ACHS SC 03/17/17 16:30 04/16/17 16:29 03/19/17 08:50 12 UNITS Glucose (Glucose 40% Gel) 15-30 GRAMS 15 GRAMS... UD PRN PO 03/17/17 12:00 04/16/17 11:59 Glucose (Glucose Chew Tab) 4-8 Tablets 4 Tabl... UD PRN PO 03/17/17 12:00 04/16/17 11:59 Dextrose (Dextrose 50% 50ML Syringe) 25-50ML OF 50% DW IV FOR... UD PRN IV 03/17/17 12:00 04/16/17 11:59 Glucagon (Glucagon Inj) 1 mg UD PRN SQ 03/17/17 12:00 04/16/17 11:59 Vancomycin HCl 2000 mg/Sodium Chloride 540 ml @ 200 mls/hr Q10H IV 03/17/17 22:00 04/28/17 21:59 03/19/17 04:20 200 MLS/HR Cefepime HCl 1000 mg/Dextrose 111.3 ml @ 200 mls/hr Q8H IV 03/17/17 20:00 04/28/17 19:59 03/19/17 04:20 200 MLS/HR Bupropion HCl (Wellbutrin-Sr Tab) 100 mg DAILY PO 03/18/17 09:00 04/17/17 08:59 03/19/17 07:37 100 MG Diltiazem HCl (TIAzac CAP) 180 mg QAM PO 03/18/17 09:00 04/17/17 08:59 03/19/17 07:37 180 MG Duloxetine HCl (Cymbalta Cap) 30 mg QAM PO 03/18/17 09:00 04/17/17 08:59 03/19/17 07:37 30 MG EZETIMIBE (Zetia Tab) 10 mg HS PO 03/17/17 21:00 04/16/17 20:59 03/18/17 19:48 10 MG Folic Acid (Folvite Tab) 1 mg DAILY PO 03/18/17 09:00 04/17/17 08:59 03/19/17 07:37 1 MG Furosemide (Lasix Tab) 40 mg QAM PO 03/18/17 09:00 04/17/17 08:59 03/19/17 07:38 40 MG Insulin Glargine (Lantus Solostar Pen) 10 units HS SC 03/17/17 21:00 04/16/17 20:59 03/18/17 21:01 10 UNITS Isosorbide Mononitrate (Imdur Ext Rel Tab) 120 mg QAM PO 03/18/17 09:00 04/17/17 08:59 03/19/17 07:37 120 MG Lactulose (Chronulac Syrup) 10 gm TID PO 03/17/17 14:00 04/16/17 13:59 03/19/17 07:38 10 GM Lisinopril (Zestril Tab) 10 mg QAM PO 03/18/17 09:00 04/17/17 08:59 03/19/17 07:37 10 MG Metoprolol Tartrate (Lopressor Tab) 50 mg TID PO 03/17/17 14:00 04/16/17 13:59 03/19/17 07:38 50 MG Multivitamins (Multivitamin Tab) 1 tab QAM PO 03/18/17 09:00 04/17/17 08:59 03/19/17 07:37 1 TAB Pantoprazole Sodium (Protonix Tab) 40 mg BID PO 03/17/17 21:00 04/16/17 20:59 03/19/17 07:37 40 MG Potassium Chloride (Klor-Con Tab) 20 meq BIDM PO 03/17/17 17:00 04/16/17 16:59 03/19/17 07:37 20 MEQ Rifaximin (Xifaxan Tab) 550 mg BID PO 03/17/17 21:00 04/16/17 20:59 03/19/17 07:37 550 MG Tamsulosin HCl (Flomax Cap) 0.4 mg HS PO 03/17/17 21:00 04/16/17 20:59 03/18/17 19:47 0.4 MG Miscellaneous Information (Order Awaiting Action) 1 ea QS PO 03/17/17 16:00 04/16/17 15:59 Miscellaneous Information (Order Awaiting Action) 1 ea QS N/A 03/17/17 16:00 04/16/17 15:59 Heparin Sodium/ Dextrose 500 ml @ 25 mls/hr Q20H PRN IV 03/17/17 13:45 04/16/17 13:44 03/19/17 08:26 25 MLS/HR Vancomycin HCl (Consult) 1 ea UD PRN N/A 03/17/17 14:30 04/16/17 14:29 Tramadol HCl (Ultram Tab) 50 mg Q4H PRN PO 03/17/17 23:45 04/16/17 23:44 03/18/17 19:46 50 MG Morphine Sulfate (MoRPHine SULFATE INJ) 4 mg Q2H PRN IV 03/17/17 23:45 03/31/17 23:44 03/19/17 10:33 4 MG Physical Exam Date Time Temp Pulse Resp B/P (MAP) Pulse Ox O2 Delivery O2 Flow Rate FiO2 03/19/17 08:00 Room Air 03/19/17 07:34 36.7 72 16 162/72 (102) 96 Room Air 03/19/17 04:33 36.7 76 18 154/90 (111) 95 Room Air 03/19/17 04:00 Room Air 03/19/17 00:00 Room Air 03/18/17 23:38 36.8 73 16 153/81 (105) 95 Room Air 03/18/17 21:16 95 Room Air 03/18/17 19:38 36.9 51 20 120/59 (79) 95 Room Air 03/18/17 16:00 95 Room Air 03/18/17 15:32 36.8 55 22 152/69 (96) 98 Room Air 03/18/17 11:03 37.0 58 20 105/58 (74) 92 Room Air On exam he exhibits +5 out of 5 bilateral plantarflexion dorsiflexion extensor hallucis longus. Quadriceps appear to be symmetric and intact. He does have evidence of acute muscular spasm lumbar spine with motion about the bed. This not demonstrate any neurologic deficit at this point. Sensory symmetric and intact. Laboratory Results Last 24 Hours Test 03/18/17 11:29 03/18/17 14:24 03/18/17 16:22 03/18/17 17:24 Bedside Glucose 142 mg/dl 95 mg/dl Activated Partial Thromboplast Time 65.8 SECONDS Partial Thromboplastin Ratio 2.5 Vancomycin Level Trough 12.8 mcg/ml Test 03/18/17 20:27 03/19/17 06:52 03/19/17 07:21 Bedside Glucose 105 mg/dl 76 mg/dl Activated Partial Thromboplast Time 65.5 SECONDS Partial Thromboplastin Ratio 2.5 Creatinine 0.54 mg/dl Est Creatinine Clear Calc Drug Dose 199.0 ml/min Estimated GFR () 128.6 Estimated GFR (Non- 111.0 Assessment & Plan Assessment lumbar spinal stenosis with evidence of osteomyelitis. Plan at this time he is neurologically intact. There is no need for urgent lumbar surgery at this time. Best treatment course this time is the continued IV antibiotics in order to contain the infection. I will review his case with Dr. pappas to see if he would like to intervene otherwise if he requires further surgical intervention would most likely require a tertiary care center in light of his significant comorbidities
[2017-03-19] MEDS ORDERED: VANCOMYCIN TROUGH ONE (13:30)
[2017-03-19] MEDS ORDERED: ENOXAPARIN 150 MG/1ML SYR SQ SCH (14:00)
--- NOTE | 2017-03-19 15:40 | Pharmacy Progress Note ---
Pharmacy Abx Dose Short Note Date of Service Mar 19, 2017. Assessment & Plan Assessment 66 year old male receiving vancomycin for treatment of osteomyelitis. Day # 410 of antimicrobial therapy. Plan Vancomycin * Trough level of 12.6 mcg/mL is subtherapeutic. * Change to 1750 mg IV every 8 hours * Goal trough level for osteo : 17 to 20 mcg/mL * Trough or random level ordered for: 03/20 prior to 2000 dose. * Will follow changes closely: with elevated BMI, may see accumulation. Pharmacy will continue to follow and will adjust dose/frequency as necessary. Thank you.
--- NOTE | 2017-03-19 17:04 | Progress Note ---
Subjective Date of Service: Mar 19, 2017. Subjective pt is having improved pain but still present with pain, per surgery no plans for intervention Problem List Medical Problems: (1) Constricting chest pain often radiating down left upper extremity Status: Acute (2) Lumbar back pain Status: Acute (3) Osteomyelitis Status: Acute Review of Systems Constitutional: No fever, No chills Respiratory: No cough, No sputum, No shortness of breath Cardiac: No chest pain, No PND, No edema Abdomen: No pain, No nausea, No vomiting Musculoskeletal: + joint pain, + muscle pain Male : No dysuria, No urinary frequency Neurologic: No memory loss, No paralysis Psychiatric: No depression symptoms, No anhedonism Objective Vital Signs Date Time Temp Pulse Resp B/P (MAP) Pulse Ox O2 Delivery O2 Flow Rate FiO2 03/19/17 07:34 36.7 72 16 162/72 (102) 96 Room Air 03/19/17 04:33 36.7 76 18 154/90 (111) 95 Room Air 03/19/17 04:00 Room Air 03/19/17 00:00 Room Air 03/18/17 23:38 36.8 73 16 153/81 (105) 95 Room Air 03/18/17 21:16 95 Room Air 03/18/17 19:38 36.9 51 20 120/59 (79) 95 Room Air 03/18/17 16:00 95 Room Air 03/18/17 15:32 36.8 55 22 152/69 (96) 98 Room Air 03/18/17 11:03 37.0 58 20 105/58 (74) 92 Room Air Physical Exam General Appearance: WD/WN, + mild distress, + obese Eyes: PERRL, EOMI Respiratory/Chest: chest non-tender, lungs clear, normal breath sounds Cardiovascular: regular rate, rhythm, no murmur Abdomen: normal bowel sounds, non tender, soft Extremities: no pedal edema, no calf tenderness Neurologic/Psychiatric: alert, oriented x 3 Laboratory Results Last 24 Hours Test 03/18/17 11:29 03/18/17 14:24 03/18/17 16:22 03/18/17 17:24 Bedside Glucose 142 mg/dl 95 mg/dl Activated Partial Thromboplast Time 65.8 SECONDS Partial Thromboplastin Ratio 2.5 Vancomycin Level Trough 12.8 mcg/ml Test 03/18/17 20:27 10/7/17 06:52 03/19/17 07:21 Bedside Glucose 105 mg/dl 76 mg/dl Activated Partial Thromboplast Time 65.5 SECONDS Partial Thromboplastin Ratio 2.5 Creatinine 0.54 mg/dl Est Creatinine Clear Calc Drug Dose 199.0 ml/min Estimated GFR () 128.6 Estimated GFR (Non- 111.0 Assessment and Plan 66 y/o M with acute osteomyelitis/discitis. currently no plans for surgical intervention Osteomyelitis/discitis: noted on MRI from 03/10/17, Vanco/cefepime Blood cx pending ID and ortho spine is following, no intervention planned but Dr Finnegan is discussing with Dr Quintero, in past has had similar issue treated with long tern antibiotics will discuss with ID if IV daptomycin is needed will need to secure a picc line Chest pain: resolved hx of bypass [id number] troponins, resume asa Afib: now on hold, coumadin usually is 10mg M/W//Sa, 7.5mg other days will move to lovenox and once surgery is assuredly a no go back to coumadin, metoprolol and diltiazem DM: continues to be stable,Lantus plus SSI, Zetia as at home, A1c pending Liver mass: AST and AP with mild elevation, on xifaxin, Follows with [facility] in process of getting a second opinion on liver transplant from [place] HTN : chronic diastolic heart failure-both are stable, metoprolol, diltiazem, lasix, imdur, zestril Depression: wellbutrin Other: Full code lovenox for DVT proph
[2017-03-19] MEDS: VANCOMYCIN INJ 1,750 MG in SODIUM CHLORIDE 0.9% 500ML 500 ML IV SCH (19:50)
[2017-03-19] MEDS: TAMSULOSIN HCL 0.4 MG CAP PO SCH (19:58)
[2017-03-19] MEDS: EZETIMIBE 10MG TAB PO SCH (19:58)
[2017-03-19] MEDS: INSULIN GLARGINE SOLOSTAR 100 UNITS/ML 3 ML PEN SC SCH (21:44)
[2017-03-20] MEDS: ENOXAPARIN 150 MG/1ML SYR SQ SCH ×3 (00:05→23:50)
[2017-03-20] MEDS: MoRPHine SULFATE 4 MG/ML 1 ML CARP\\VIAL IV PRN (03:11)
[2017-03-20] MEDS: VANCOMYCIN INJ 1,750 MG in SODIUM CHLORIDE 0.9% 500ML 500 ML IV SCH ×3 (04:34→20:15)
[2017-03-20] MEDS: CEFEPIME IV 1,000 MG in DEXTROSE 5% 100ML 100 ML IV SCH (04:34)
[2017-03-20] MEDS: SODIUM CHLORIDE 0.9% 1000ML 1,000 ML IV SCH (05:10)
[2017-03-20 05:12] VITALS: BP 179/93; PULSE 65; TEMP 36.6; O2SAT 96
[2017-03-20] MEDS: INSULIN ASPART 100 UNITS/ML 3 ML PEN SC SCH ×4 (06:30→21:00)
[2017-03-20] MEDS: [UNRECOGNIZED DRUG - OTHER] PO SCH ×3 (07:08→22:55)
[2017-03-20] MEDS: OXYCODONE HCL IR 5 MG TAB (IMMEDIATE RELEASE) PO PRN ×2 (07:14→20:15)
[2017-03-20] MEDS: METOPROLOL TARTRATE 50 MG TAB PO SCH ×3 (07:14→21:00)
[2017-03-20] MEDS: POTASSIUM CHLORIDE 20 MEQ TABCR PO SCH ×2 (07:15→17:18)
[2017-03-20] MEDS: ASPIRIN 81 MG ECTAB PO SCH (07:15)
[2017-03-20] MEDS: RIFAXIMIN TAB 550 MG TAB PO SCH ×2 (07:15→21:15)
[2017-03-20] MEDS: FUROSEMIDE 40 MG TAB PO SCH (07:15)
[2017-03-20] MEDS: DILTIAZEM HCL (TIAzac) 180 MG CAPCR PO SCH (07:16)
[2017-03-20] MEDS: LACTULOSE SYRUP 10 GM/15 ML BTL 473 ML PO SCH ×3 (07:16→21:11)
[2017-03-20] MEDS: LISINOPRIL 10 MG TAB PO SCH (07:16)
[2017-03-20] MEDS: BuPROPion SR 100 MG TABCR PO SCH (07:17)
[2017-03-20] MEDS: PANTOprazole SOD 40 MG TAB PO SCH ×2 (07:17→21:15)
[2017-03-20] MEDS: ISOSORBIDE MONONITRATE 60 MG TABCR PO SCH (07:17)
[2017-03-20] MEDS: DULOXETINE (CYMBALTA) 30 MG CAP PO SCH (07:17)
[2017-03-20] MEDS: MULTIVITAMIN TAB PO SCH (07:17)
[2017-03-20 07:20] LABS: PARTIAL THROMBOPLASTIN RATIO 1.4
[2017-03-20] MEDS ORDERED: HydrALAZINE HCL 20 MG/ML VIAL IV PRN (07:30)
[2017-03-20 07:32] LABS: CREATININE 0.53 mg/dl (0.60-1.40)
[2017-03-20 07:43] VITALS: BP 168/90; PULSE 67; TEMP 36.6; O2SAT 95
[2017-03-20 07:55] LABS: MEAN CELL VOLUME 75.6 fL (80-100); MEAN CORPUSCULAR HEMOGLOBIN 26.2 pg (25-34); MEAN CORPUSCULAR HGB CONC 34.6 g/dl (32-36); MEAN PLATELET VOLUME 10.9 fL (7.4-10.4); PLATELET COUNT 164 K/uL (130-400); RED BLOOD COUNT 5.16 M/uL (4.7-6.1); WHITE BLOOD COUNT 4.17 K/uL (4.8-10.8)
--- NOTE | 2017-03-20 08:33 | Orthopedic Progress Note ---
Orthopedic Progress Note Date of Service Mar 20, 2017. Subjective Additional Notes: Mr. Herring has complaints of lower back pain. No radicular pain. Pain is reproduced with any type of movement such as rolling over or changing positions. Denies bowel or bladder changes. He reports he is not been taking any narcotics at home due to the fact that he is trying to get onto a liver transplant list and this is one of the criteria that would exclude him. He does report he had a lumbar fusion by Dr. Naylor in April 2015. He did become infected postoperatively. He reports I&D in early June [address] Naylor followed by 6 weeks of IV antibiotics. He has done fine up until recently. Objective calves soft nontender, N/V intact, A&O x3, toes mobile He is lying in bed. No obvious distress. Lower extremity is neurovascularly intact. Date Time Temp Pulse Resp B/P (MAP) Pulse Ox O2 Delivery O2 Flow Rate FiO2 03/20/17 08:00 Room Air 03/20/17 07:43 36.6 67 16 168/90 (116) 95 Room Air 03/20/17 05:12 36.6 65 16 179/93 (121) 96 Room Air 03/20/17 04:00 Room Air 03/20/17 00:00 Room Air 03/19/17 22:46 37.0 57 16 158/94 (115) 94 Room Air 03/19/17 20:00 Room Air 03/19/17 19:02 36.7 53 18 145/79 (101) 94 Room Air 03/19/17 16:16 36.4 47 18 154/81 (105) 97 Room Air 03/19/17 16:00 Room Air 03/19/17 14:07 74 147/90 (109) 03/19/17 12:00 Room Air 03/19/17 11:48 36.4 55 16 151/79 (103) 96 Room Air Laboratory Results 24 Hours: Test 03/20/17 06:46 Hematocrit 39.0 % Hemoglobin 13.5 g/dL Assessment & Plan Assessment: History of lumbar fusion by Dr. Naylor. Now with discitis/osteomyelitis lumbar spine. Plan: Dr. Finnegan was going to touch base with Dr. Naylor in regards to this patient. At this point in time he is neurologically stable, therefore, no acute surgical indications We'll plan to continue with IV antibiotic therapy per recommendations of infectious disease. If his status changes, may ultimately need transfer to tertiary care center for management of both medical issues as well as surgical intervention.
[2017-03-20] MEDS: ONDANSETRON INJ 2 MG/ML 2 ML VIAL IV PRN (08:40)
[2017-03-20 13:59] VITALS: BP 147/84; PULSE 64
--- NOTE | 2017-03-20 14:04 | Progress Note ---
Subjective Date of Service: Mar 20, 2017. Subjective this pt did have some vomiting this am after taking po pain meds, he states he typically can tolerate pain meds usually. pt states back pain is tolerable. Problem List Medical Problems: (1) Constricting chest pain often radiating down left upper extremity Status: Acute (2) Lumbar back pain Status: Acute (3) Osteomyelitis Status: Acute Review of Systems Constitutional: + weakness, + fatigue, No fever, No chills Respiratory: No cough, No shortness of breath Cardiac: No chest pain, No edema Abdomen: + nausea, + vomiting, No pain Musculoskeletal: + joint pain, + muscle pain Neurologic: No memory loss, No paralysis Objective Vital Signs Date Time Temp Pulse Resp B/P (MAP) Pulse Ox O2 Delivery O2 Flow Rate FiO2 03/20/17 05:12 36.6 65 16 179/93 (121) 96 Room Air 03/20/17 04:00 Room Air 03/20/17 00:00 Room Air 03/19/17 22:46 37.0 57 16 158/94 (115) 94 Room Air 03/19/17 20:00 Room Air 03/19/17 19:02 36.7 53 18 145/79 (101) 94 Room Air 03/19/17 16:16 36.4 47 18 154/81 (105) 97 Room Air 03/19/17 16:00 Room Air 03/19/17 14:07 74 147/90 (109) 03/19/17 12:00 Room Air 03/19/17 11:48 36.4 55 16 151/79 (103) 96 Room Air 03/19/17 08:00 Room Air 03/19/17 07:34 36.7 72 16 162/72 (102) 96 Room Air Physical Exam General Appearance: + mild distress, + obese Eyes: PERRL, EOMI Respiratory/Chest: chest non-tender, lungs clear, normal breath sounds Cardiovascular: regular rate, rhythm, no murmur Abdomen: normal bowel sounds, soft Extremities: no pedal edema, no calf tenderness Neurologic/Psychiatric: alert, oriented x 3 Laboratory Results Last 24 Hours Test 03/19/17 11:39 03/19/17 13:42 03/19/17 16:50 03/19/17 20:29 Bedside Glucose 113 mg/dl 71 mg/dl 103 mg/dl Vancomycin Level Trough 12.6 mcg/ml Test 03/20/17 06:46 Activated Partial Thromboplast Time 37.6 SECONDS Partial Thromboplastin Ratio 1.4 Assessment and Plan 66 y/o M with acute osteomyelitis/discitis. currently no plans for surgical intervention Osteomyelitis/discitis: noted on MRI from 03/10/17, blood cultures show 2 of 2 with gram positives yet to be speciated, will de escalate to vanco only and then choose hopefully once a day antibiotics for home care, since this is second time according to pt will discuss again with ID and surgery before transition back to lovenox ID and ortho spine is following, no intervention planned but Dr Finnegan Chest pain: continues to be resolved, hx of bypass [id number] troponins, resume asa Afib: lovenox and once surgery is assuredly a no go back to coumadin, metoprolol and diltiazem DM: ,Lantus plus SSI, Zetia as at home, Liver mass: AST and AP with mild elevation, on xifaxin, Follows with [facility] in process of getting a second opinion on liver transplant from [facility], however if persistent hardware infection may prohibit consideration of transplant due to needed immunosuppression HTN : chronic diastolic heart failure-continues to be stable, metoprolol, diltiazem, lasix, imdur, zestril Depression: wellbutrin Other: Full code lovenox for DVT proph
[2017-03-20 15:13] VITALS: BP 143/84; PULSE 59; TEMP 36.9; O2SAT 96
[2017-03-20] MEDS ORDERED: VANCOMYCIN TROUGH ONE (19:30)
[2017-03-20 20:06] VITALS: BP 152/73; PULSE 56; TEMP 37.1; O2SAT 97
[2017-03-20] MEDS: EZETIMIBE 10MG TAB PO SCH (21:15)
[2017-03-20] MEDS: TAMSULOSIN HCL 0.4 MG CAP PO SCH (21:15)
[2017-03-20 21:17] VITALS: PULSE 58
[2017-03-20] MEDS: INSULIN GLARGINE SOLOSTAR 100 UNITS/ML 3 ML PEN SC SCH (21:20)
[2017-03-21] VITALS (7 sets, daily range): BP systolic 120–161; BP diastolic 68–90; PULSE 55–77; TEMP 36.4–36.8; O2SAT 92–97
[2017-03-21] MEDS: VANCOMYCIN INJ 1,750 MG in SODIUM CHLORIDE 0.9% 500ML 500 ML IV SCH ×3 (03:27→20:00)
[2017-03-21] MEDS: OXYCODONE HCL IR 5 MG TAB (IMMEDIATE RELEASE) PO PRN ×2 (03:55→21:04)
[2017-03-21] MEDS: [UNRECOGNIZED DRUG - OTHER] PO SCH ×3 (07:16→23:55)
[2017-03-21 07:44] LABS: PARTIAL THROMBOPLASTIN RATIO 1.5
[2017-03-21] MEDS: POTASSIUM CHLORIDE 20 MEQ TABCR PO SCH ×2 (08:01→18:31)
[2017-03-21] MEDS: ASPIRIN 81 MG ECTAB PO SCH (08:01)
[2017-03-21] MEDS: MULTIVITAMIN TAB PO SCH (08:01)
[2017-03-21] MEDS: METOPROLOL TARTRATE 50 MG TAB PO SCH ×3 (08:01→20:58)
[2017-03-21] MEDS: FUROSEMIDE 40 MG TAB PO SCH (08:01)
[2017-03-21] MEDS: DULOXETINE (CYMBALTA) 30 MG CAP PO SCH (08:01)
[2017-03-21] MEDS: DILTIAZEM HCL (TIAzac) 180 MG CAPCR PO SCH (08:01)
[2017-03-21] MEDS: BuPROPion SR 100 MG TABCR PO SCH (08:01)
[2017-03-21] MEDS: RIFAXIMIN TAB 550 MG TAB PO SCH ×2 (08:02→20:58)
[2017-03-21] MEDS: LACTULOSE SYRUP 10 GM/15 ML BTL 473 ML PO SCH ×3 (08:02→20:53)
[2017-03-21] MEDS: PANTOprazole SOD 40 MG TAB PO SCH ×2 (08:02→20:58)
[2017-03-21] MEDS: LISINOPRIL 10 MG TAB PO SCH (08:02)
[2017-03-21] MEDS: ISOSORBIDE MONONITRATE 60 MG TABCR PO SCH (08:02)
[2017-03-21] MEDS: INSULIN ASPART 100 UNITS/ML 3 ML PEN SC SCH ×4 (08:52→20:50)
--- NOTE | 2017-03-21 09:12 | Pharmacy Progress Note ---
Pharmacy Abx Dose Short Note Date of Service Mar 21, 2017. Assessment & Plan Assessment * 66 year old male receiving vancomycin IV for treatment of osteomyelitis/ discitis * Day # 5 IV vancomycin therapy * Renal fxn appears stable based upon SCr and U.O. * He remains afebrile and VSS Plan Vancomycin * Trough level of 17.2 mcg/mL is therapeutic. Prior doses hung at appropriate times. Level drawn at appropriate time. * Continue dose of 1750 mg IV every 8 hours * Goal trough level for discitis/osteomyelitis : 15 to 20 mcg/mL * Repeat trough level ordered for: 03/22/17 to screen for drug accumulation. Pharmacy will continue to follow and will adjust dose/frequency as necessary. Thank you.
--- NOTE | 2017-03-21 09:33 | Medical Student: [facility] ---
Medical Student Progress Note Date of Service Mar 21, 2017. Progress Note Subjective Patient is doing okay today. He states he had an echo this morning. He does agree with our medical management at this time as he would like to avoid surgery for his osteomyelitis if possible. Also on his mind is getting a second opinion from [facility] for a liver transplant. He said [facility] told him that he would have to lose 35 pounds in addition to the concern about his diabetes and his heart. He says he's lost about 17 pounds since they denied the request for transplant. He says he is more mobile here than he is at home. He has been walking the hallways. He noticed there is less swelling in his ankles. He woke up this morning in 4/10 pain. He received pain medication this morning and rated pain 1/10. He has been depressed recently. He notices the manifestations of his medical conditions and says that he has been more forgetful and his hands have been trembling more. He notices change with sleep cycle for the worse. He is tired alot. He has started wellbutrin as of 2 months ago about. He does admit to loss of interest - He says he has "a garage full of fishing gear and sadly has no interest in using any of it." ROS: negative for fever, nausea, vomiting this morning. negative for SOB. States he is tired feeling. Objective Vitals: Temp: 36.4 (trending down), Pulse: 70, RR: 16, BP: 161/90, Pulse ox: 95 on room air ::as of 10.9.17 at 7:24 Labs: Low Hgb at 13.5 (trending up), APTT at 38.0 (down from 65.5 on 03/19/17), Glucose 85 Liver Labs (03/21/17 12:21pm): AST - 97 (high), ALT - 67, ALP 273 (high), Albumin 1.9 (low), BUN 5 (low), BUN/Cr 4.8 (low) Electrolytes (03/21/17 12:21pm): Na 147 (High), K 3 (Low), Cl 110 (low) Physical Exam: General Appearance: obese male in no acute distress Heart: normal S1/S2 heart sounds with regular rate, rhythm, and no murmur, normal carotid pulses bilaterally with no bruits Lungs: lung mora clear bilaterally Extremities: Mild edema in right lower ankle, no edema in left lower extremity Neurologic: Mild shaking in hands when asked to hold steady Medication: Hydralazine 10 mg Q4H PRN IV Enoxaparin 129 mg Q!@H SQ Vancomycin 200 ml/hr of 1750 mg in 535ml Q8H IV Oxycodone 10 mg Q6H PRN PO Bupropion 100 mg daily PO Diltiazem 180 mg QAM PO Duloxetine 30 mg QAM PO Folic acid 1 mg QAM PO Furosemide 40 mg QAM PO Isosorbide mononitrate 120 mg QAM PO Lisinopril 10 mg QAM PO Multivitamins 1 tab QAM Tramadol 50 mg Q4H PRN PO Morphine Sulfate 4 mg Q2H PRN IV Ezetimibe 10 mg HS PO Insulin glargine 10 U HS SC Pantoprazole 40 mg BID PO Rifaximin 550 mg BID PO Tamsulosin 0.4 mg HS PO Potassium Chloride 20 mEq BIDM PO Insulin Aspart sliding scale Vancomycin UD PRN Lactulose 10 gm TID PO Metoprolol 50 mg TID PO Acetaminophen 650 mg Q4H PRN PO Magnesium Hydroxide 30 mL Q12H PRN PO Ondansetron 4 mg Q6H PRN IV Nitroglycerin 0.4 mg UD PRN SL Glucose and Dextrose Impression Patient is a 66 year old male with acute osteomyelitis/discitis, managing acute care in our hospital. He is receiving a second opinion from [facility] after [facility] declined transplant. He is in agreement with our medical management at this time. Assessment/Plan 1. Osteomyelitis/discitis 1a Blood culture shows Coagulase negative Staphylococcus 1b Patient on vancomycin 1c Maintain vanco levels at 15-20 micrograms/mL for as recommended for complicated infection 1d Monitoring ongoing for blood culture sensitivities 1e Consult ID to determine if IV daptomycin is needed, if so, a PICC line is then necessary 1f +/- Consider serial serum inflammatory markers to ensure normalization by end of planned treatment course 1g +/- Consider a blood culture after planned treatment course 2. Depression on Cymbalta combination Wellbutrin. Wellbutrin was added about 2 months ago. He still has symptoms of depression but baseline is stable. Continue to monitor. 3. Afib Hold Coumadin until r/o surgery with certainty. Currently: Lovenox, metoprolol, diltiazem. DVT prophylaxis with Lovenox 4. Diabetes mellitis type 2 Stable On Lantus/SSI and Zetia 5. Liver mass [facility] denied request for transplant, patient is getting a second opinion from [facility]. On Xifaxan. 6. Hypertension Continue to monitor. Currently: metoprolol, diltiazem, Lasix, Imdur, Zestril 7. Chest pain History of bypass, on aspirin currently 8. Vomiting and Abnormal labs r/o pancreatitis, liver/biliary pathology Elevated AST and ALP. normal ALT. Abnormal electrolytes with low Potassium. Consider KCl. ultrasound pending
--- NOTE | 2017-03-21 10:05 | Progress Note ---
Subjective Date of Service: Mar 21, 2017. Subjective Pt evaluation today including: conversation w/ patient, physical exam, chart review, lab review pt feeling better, still with pain but controlled. afebrile. Initial blood cultures growing DRY WALL [employer]AYER, sensitivities pending, 2/2 sets. States he had echo this am, results pending. repeat blood cultures ordered this am. still difficulty with ambulation, tolerating abx. no n/v/d. ortho following, no plans for OR Problem List Medical Problems: (1) Constricting chest pain often radiating down left upper extremity Status: Acute (2) Lumbar back pain Status: Acute (3) Osteomyelitis Status: Acute Objective Vital Signs Date Time Temp Pulse Resp B/P (MAP) Pulse Ox O2 Delivery O2 Flow Rate FiO2 03/21/17 08:00 Room Air 03/21/17 07:24 36.4 70 16 161/90 (113) 95 Room Air 03/21/17 04:00 Room Air 03/21/17 03:52 36.8 65 20 134/75 (94) 97 Room Air 03/21/17 00:10 36.7 61 16 135/68 (90) 95 Room Air 03/21/17 00:00 Room Air 03/20/17 21:17 58 03/20/17 20:06 37.1 56 18 152/73 (99) 97 Room Air 03/20/17 20:00 Room Air 03/20/17 16:00 Room Air 03/20/17 15:13 36.9 59 16 143/84 (103) 96 Room Air 03/20/17 13:59 64 147/84 (105) 03/20/17 12:00 Room Air Physical Exam General Appearance: WD/WN, no apparent distress Eyes: normal inspection, EOMI Neck: supple Respiratory/Chest: lungs clear, normal breath sounds, no respiratory distress Cardiovascular: regular rate, rhythm, no edema Abdomen: soft Extremities: non-tender, no pedal edema Neurologic/Psychiatric: alert, oriented x 3 Skin: normal color Laboratory Results Item Value Date Time Blood Culture - Preliminary Resulted 03/17/17 1055 Blood Coag Neg Staphylococcus Blood Culture - Preliminary Resulted 03/17/17 1110 Blood Coag Neg Staphylococcus Last 24 Hours Test 03/20/17 11:39 03/20/17 16:22 03/20/17 19:40 10/8/17 20:31 Bedside Glucose 109 mg/dl 118 mg/dl 104 mg/dl Vancomycin Level Trough 17.2 mcg/ml Test 03/21/17 07:16 03/21/17 07:36 Activated Partial Thromboplast Time 38.0 SECONDS Partial Thromboplastin Ratio 1.5 Bedside Glucose 85 mg/dl Assessment and Plan (1) Osteomyelitis Assessment & Plan: will continue with vanco for now. await echo finding. await final sensitivities. repeat blood cultures ordered. 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 last treated with IV in early 2016. now with large collection, unclear if he would be candidate for surgery but with recurrent infection may benefit from eval, otherwise he will likely require prolonged IV abx with po supprression, this was plan in 2016 but he did not follow with ID post d/c from hospital. Per ortho, pt would require transfer to tertiary care center if surgical options explored.
--- NOTE | 2017-03-21 10:35 | ECHOCARDIOGRAM REPORT ---
*NOTICE TO RECEIVING LIBERTARIAN AGENCY This information is strictly Confidential and protected under [place] law. [place] law prohibits you from making any further disclosure of this information unless further disclosure is expressly permitted by the written consent of the person to whom it pertains or is authorized by law. A general authorization for the release of medical or other information is not sufficient for this purpose. Hospital accepts no responsibility if the information is made available to any other person, INCLUDING THE PATIENT. Interpretation Summary * Name: RAMY CHARLES Study Date: 03/21/2017 06:29 AM BP: 161/90 mmHg * Patient Location: [facility]\S\N279\S\1 HR: 70 * : 1950 (M/d/yyyy) Gender: Male Height: 74 in * Age: 66 yrs Ethnicity: AA Weight: 287 lb * Ordering Physician: Siddhartha Jenkins * Referring Physician: Greta Garrett * Performed By: Rita Vicente [facility] * * Reason For Study: Endocarditis * BSA: 2.5 m2 * -- Conclusions -- * 1. Normal LV size, mild concentric LVH. * 2. Normal LV systolic function. LVEF 55-60%. No regional wall motion abnormalities. * 3. Mildly dilated RV, borderline RV function. * 4. Diastolic dysfunction. * 5. Severe biatrial enlargement. * 6. No significant valvular pathology. No evidence of vegetations. * 7. Borderline pulmonary hypertension. Est PASP 35-40 mmHg. Normal estimated RA. * 8. Compared with prior study on 07/02/2016: No significant changes. Procedure Details * A complete two-dimensional transthoracic echocardiogram was performed (2D, M-mode, Doppler and color flow Doppler). Left Ventricle * The left ventricle is not well visualized. * There is mild concentric left ventricular hypertrophy. * Ejection Fraction = 55-60%. * No regional wall motion abnormalities noted. Right Ventricle * The right ventricle is mildly dilated. * The right ventricular systolic function is borderline reduced. Atria * The left atrium is severely dilated. * The right atrium is severely dilated. * No ASD detected; PFO is not assessed. Mitral Valve * The mitral valve is grossly normal. * There is no mitral valve stenosis. * There is trace mitral regurgitation. Tricuspid Valve * The tricuspid valve is not well visualized, but is grossly normal. * There is no tricuspid stenosis. * There is trace tricuspid regurgitation. Aortic Valve * The aortic valve opens well. * The aortic valve is trileaflet. * No hemodynamically significant valvular aortic stenosis. * There is no significant aortic regurgitation. Pulmonic Valve * The pulmonary valve is inadequately visualized, but the Doppler data is adequate for interpretation. * Pulmonic stenosis is absent. * There is no significant pulmonary regurgitation. Great Vessels * The aortic root and proximal ascending aorta are normal sized. Pericardium/Pleural * There is no pericardial effusion. Great Vessels * Normal inferior vena cava size and collapsability with sniff indicates a normal right atrial pressure of 3 mmHg Left Ventricular Diastolic Function * Diastolic dysfunction. MMode 2D Measurements and Calculations IVSd 1.2 cm IVSs 1.7 cm LVIDd 5.8 cm LVIDs 3.9 cm LVPWd 1.2 cm LVPWs 1.6 cm IVS/LVPW 1.0 FS 32.9 % EDV(Teich) 164.2 ml ESV(Teich) 64.6 ml EF(Teich) 60.6 % EDV(cubed) 191.5 ml ESV(cubed) 57.9 ml EF(cubed) 69.8 % % IVS thick 37.9 % % LVPW thick 33.1 % LV mass(C)d 294.0 grams LV mass(C)dI 116.1 grams/m\S\2 LV mass(C)s 252.9 grams LV mass(C)sI 99.8 grams/m\S\2 SV(Teich) 99.6 ml SI(Teich) 39.3 ml/m\S\2 SV(cubed) 133.6 ml SI(cubed) 52.7 ml/m\S\2 Ao root diam 3.6 cm Ao root area 9.9 cm\S\2 ACS 2.2 cm LA dimension 5.1 cm asc Aorta Diam 3.1 cm LA/Ao 1.4 Doppler Measurements and Calculations MV E max nancy 129.9 cm/sec MV P1/2t max nancy 130.0 cm/sec MV P1/2t 87.2 msec MVA(P1/2t) 2.5 cm\S\2 MV dec slope 436.3 cm/sec\S\2 MV dec time 0.22 sec PA V2 max 115.2 cm/sec PA max PG 5.4 mmHg PI max nancy 107.0 cm/sec PI max PG 4.6 mmHg PI dec slope 109.5 cm/sec\S\2 PI P1/2t 286.2 msec TR max nancy 290.6 cm/sec
[2017-03-21] MEDS: ONDANSETRON INJ 2 MG/ML 2 ML VIAL IV PRN (11:20)
[2017-03-21] MEDS: ENOXAPARIN 150 MG/1ML SYR SQ SCH (11:43)
[2017-03-21 13:37] LABS: ALB/GLOB RATIO 0.4 (0.9-2); BUN/CREATININE RATIO 4.8 (10-20); CALCIUM 8.7 mg/dl (8.5-10.1)
--- NOTE | 2017-03-21 16:00 | Progress Note ---
Subjective Date of Service: Mar 21, 2017. Problem List Medical Problems: (1) Constricting chest pain often radiating down left upper extremity Status: Acute (2) Lumbar back pain Status: Acute (3) Osteomyelitis Status: Acute Review of Systems Constitutional: + weakness, + fatigue, No fever, No chills Respiratory: No cough, No sputum, No shortness of breath, No dyspnea on exertion Cardiac: No chest pain, No edema Abdomen: + nausea, + vomiting, No pain, No diarrhea Musculoskeletal: + joint pain, + muscle pain Neurologic: No memory loss, No paralysis Psychiatric: No depression symptoms, No anhedonism Objective Vital Signs Date Time Temp Pulse Resp B/P (MAP) Pulse Ox O2 Delivery O2 Flow Rate FiO2 03/21/17 14:00 77 148/85 (106) 03/21/17 12:00 Room Air 03/21/17 11:26 36.4 61 16 120/69 (86) 92 Room Air 03/21/17 08:00 Room Air 03/21/17 07:24 36.4 70 16 161/90 (113) 95 Room Air 03/21/17 04:00 Room Air 03/21/17 03:52 36.8 65 20 134/75 (94) 97 Room Air 03/21/17 00:10 36.7 61 16 135/68 (90) 95 Room Air 03/21/17 00:00 Room Air 03/20/17 21:17 58 03/20/17 20:06 37.1 56 18 152/73 (99) 97 Room Air 03/20/17 20:00 Room Air 03/20/17 16:00 Room Air Physical Exam General Appearance: WD/WN, + mild distress, + obese Respiratory/Chest: chest non-tender, lungs clear, normal breath sounds Cardiovascular: regular rate, rhythm, no murmur Abdomen: normal bowel sounds, non tender, soft Extremities: no pedal edema, no calf tenderness Neurologic/Psychiatric: alert, oriented x 3 Laboratory Results Last 24 Hours Test 03/20/17 16:22 03/20/17 19:40 03/20/17 20:31 03/21/17 07:16 Bedside Glucose 118 mg/dl 104 mg/dl Vancomycin Level Trough 17.2 mcg/ml Activated Partial Thromboplast Time 38.0 SECONDS Partial Thromboplastin Ratio 1.5 Test 03/21/17 07:36 03/21/17 11:38 03/21/17 12:21 Bedside Glucose 85 mg/dl 101 mg/dl Sodium Level 147 mmol/L Potassium Level 3.0 mmol/L Chloride Level 110 mmol/L Carbon Dioxide Level 32 mmol/L Anion Gap 5.0 mmol/L Blood Urea Nitrogen 5 mg/dl Creatinine 1.00 mg/dl Est Creatinine Clear Calc Drug Dose 107.6 ml/min Estimated GFR () 91.8 Estimated GFR (Non- 79.2 BUN/Creatinine Ratio 4.8 Random Glucose 93 mg/dl Calcium Level 8.7 mg/dl Total Bilirubin 0.8 mg/dl Aspartate Amino Transf (AST/SGOT) 97 U/L Alanine Aminotransferase (ALT/SGPT) 67 U/L Alkaline Phosphatase 273 U/L Total Protein 7.3 gm/dl Albumin 1.9 gm/dl Globulin 5.4 gm/dl Albumin/Globulin Ratio 0.4 Lipase 99 U/L Assessment and Plan 66 y/o M with acute osteomyelitis/discitis. currently no plans for surgical intervention, pt has had nausea and vomiting over the last two days not associated with opiate administration, does have history of liver mass. Osteomyelitis/discitis: noted on MRI from 03/10/17, blood cultures show 2 of 2 with gram positives found to be coag negative staph, de escalate to vanco second time according to pt o lovenox for his AC until we transition back to coumadin ID and ortho spine is following, no intervention planned but Dr Finnegan, pt with persitent radicular back pain Chest pain: continues to be resolved, hx of bypass [id number] troponin, resume asa Afib: Lovenox and once surgery is assuredly a no go back to coumadin, metoprolol and diltiazem DM: ,Lantus plus SSI, Zetia as at home, Liver mass: AST and AP with mild elevation, on xifaxin, I personally called [facility] and will await a call back, liver u/s results pending with recent nausea and vomiting HTN : chronic diastolic heart failure-continues to be stable, metoprolol, diltiazem, lasix, imdur, zestril Depression: wellbutrin Other: Full code lovenox for DVT proph
[2017-03-21] MEDS: TRAMADOL HCL 50 MG TAB PO PRN (16:13)
[2017-03-21] MEDS: MAGNESIUM SULFATE 1GM / D5W 1 GM in PREMIXED IN D5W 100 ML IV ONE ×2 (16:15→16:52)
--- NOTE | 2017-03-21 16:19 | DIAGNOSTIC IMAGING REPORT ---
ULTRASOUND RIGHT UPPER QUADRANT ABDOMEN CLINICAL HISTORY: Nausea. Cirrhosis. History of hepatic lesion.. COMPARISON STUDY: Abdominal CT dated 05/12/2016. TECHNIQUE: Real-time, grayscale, and color flow sonography of the right upper quadrant of the abdomen was performed. Images are reviewed in the transverse and longitudinal planes. The Examination is degraded by inability of the patient to breath-hold and large body habitus. FINDINGS: Liver: The liver is cirrhotic in morphology and markedly heterogeneous in echotexture. There is nodularity of the surface contour.. There is no intrahepatic biliary ductal dilatation. No focal hepatic mass lesion is identified. The main portal vein is patent.. Flow appears reversed. Gallbladder: Small gallstones are identified. The gallbladder is otherwise normal in appearance. There is no gallbladder wall thickening or pericholecystic fluid. A sonographic Garcia's sign is reportedly absent. The common bile duct measures up to 0.6 cm in diameter. Pancreas: Visualized portions of the pancreatic head and body are normal in appearance. The splenic vein appears patent. Right kidney: Survey images of the right kidney demonstrate cortical atrophy. There is no hydronephrosis. Right renal cysts measure up to 4.3 cm. Ascites: None. IMPRESSION: 1. The liver is cirrhotic in morphology and markedly heterogeneous in echotexture. 2. There is no sonographic evidence of mass lesion. The liver lesion seen by CT 05/12/2016 was not apparent by ultrasound. 3. Reversal of flow is noted in the portal vein. 4. Cholelithiasis without sonographic evidence of acute cholecystitis. Electronically signed by: Ronal Brady M.D. 03/21/2017 4:18 PM Dictated Date/Time: 03/21/2017 4:15 PM
[2017-03-21] MEDS: POTASSIUM CHLR 10 MEQ / WTR 10 MEQ in PREMIXED WATER 100 ML IV SCH ×3 (18:27→20:53)
[2017-03-21] MEDS: EZETIMIBE 10MG TAB PO SCH (20:58)
[2017-03-21] MEDS: TAMSULOSIN HCL 0.4 MG CAP PO SCH (20:58)
[2017-03-21] MEDS: INSULIN GLARGINE SOLOSTAR 100 UNITS/ML 3 ML PEN SC SCH (21:00)
[2017-03-22] VITALS (9 sets, daily range): BP systolic 128–181; BP diastolic 66–105; PULSE 53–70; TEMP 36.3–36.8; O2SAT 92–97
[2017-03-22] MEDS ORDERED: ENOXAPARIN SQ SCH
[2017-03-22] MEDS ORDERED: VANCOMYCIN TROUGH ONE (03:30)
[2017-03-22] MEDS: VANCOMYCIN INJ 1,750 MG in SODIUM CHLORIDE 0.9% 500ML 500 ML IV SCH (03:48)
[2017-03-22 04:02] LABS: MEAN CORPUSCULAR HGB CONC 33.5 g/dl (32-36)
[2017-03-22 04:36] LABS: CALCIUM 8.7 mg/dl (8.5-10.1); CREATININE 0.97 mg/dl (0.60-1.40); MAGNESIUM 1.8 mg/dl (1.8-2.4); POTASSIUM 3.2 mmol/L (3.5-5.1)
[2017-03-22 04:39] LABS: HEMATOCRIT 38.5 % (42-52); MEAN CELL VOLUME 76.1 fL (80-100); MEAN CORPUSCULAR HEMOGLOBIN 25.5 pg (25-34); RED BLOOD COUNT 5.06 M/uL (4.7-6.1); WHITE BLOOD COUNT 5.05 K/uL (4.8-10.8)
[2017-03-22 04:53] LABS: MEAN PLATELET VOLUME 10.8 fL (7.4-10.4); PLATELET COUNT 130 K/uL (130-400); PLT ESTIMATE DECREASED
[2017-03-22] MEDS: POTASSIUM CHLR 10 MEQ / WTR 10 MEQ in PREMIXED WATER 100 ML IV SCH ×3 (06:31→08:05)
[2017-03-22] MEDS: [UNRECOGNIZED DRUG - OTHER] PO SCH ×3 (07:39→23:07)
[2017-03-22] MEDS: MULTIVITAMIN TAB PO SCH (07:39)
[2017-03-22] MEDS: ISOSORBIDE MONONITRATE 60 MG TABCR PO SCH (07:39)
[2017-03-22] MEDS: PANTOprazole SOD 40 MG TAB PO SCH ×2 (07:39→20:54)
[2017-03-22] MEDS: RIFAXIMIN TAB 550 MG TAB PO SCH ×2 (07:40→20:54)
[2017-03-22] MEDS: DULOXETINE (CYMBALTA) 30 MG CAP PO SCH (07:40)
[2017-03-22] MEDS: ASPIRIN 81 MG ECTAB PO SCH (07:40)
[2017-03-22] MEDS: METOPROLOL TARTRATE 50 MG TAB PO SCH ×3 (07:40→21:01)
[2017-03-22] MEDS: POTASSIUM CHLORIDE 20 MEQ TABCR PO SCH ×2 (07:40→16:29)
[2017-03-22] MEDS: LACTULOSE SYRUP 10 GM/15 ML BTL 473 ML PO SCH ×3 (07:40→20:50)
[2017-03-22] MEDS: DILTIAZEM HCL (TIAzac) 180 MG CAPCR PO SCH (07:41)
[2017-03-22] MEDS: FUROSEMIDE 40 MG TAB PO SCH (07:41)
[2017-03-22] MEDS: BuPROPion SR 100 MG TABCR PO SCH (07:41)
[2017-03-22] MEDS: LISINOPRIL 10 MG TAB PO SCH (07:41)
[2017-03-22] MEDS: INSULIN ASPART 100 UNITS/ML 3 ML PEN SC SCH ×4 (08:05→20:56)
--- NOTE | 2017-03-22 10:23 | Pharmacy Progress Note ---
Pharmacy Abx Dose Short Note Date of Service Mar 22, 2017. Assessment & Plan Assessment * 66 year old male receiving IV VANCOMYCIN for osteomyelitis/discitis + CoN Staph bacteremia * Day # 6 of antimicrobial therapy * 2 of 2 BLCX's growing CoN Staph, repeat BLCX's drawn yesterday * Renal fxn has deteriorated over the last 24 hours. SCr has nearly doubled ( SCr 0.53 -->1.0), U.O. however has not declined. He continues to put out > 5L urine each day w/ diuresis. Patient weight not greatly changed over the last 2 days. No hypotension noted. No contrast given. Vancomycin induced nephrotoxicity? * He remains afebrile, VSS, WBC within normal limits Plan Vancomycin * Trough level of 28.5 mcg/mL is supratherapeutic. Prior doses hung at appropriate times. Level drawn at appropriate time. * Given clear change in renal fxn will place vancomycin 1750mg IV Q 8 hrs on hold and recheck trough 16 hours after last dose * Plan is to restart vancomycin at a reduced dose when level between 15-20mcg/mL * Random level ordered for this afternoon at 1600 Pharmacy will continue to follow and will adjust dose/frequency as necessary. Thank you.
--- NOTE | 2017-03-22 11:05 | Medical Student: [facility] ---
Med Student Progress Note Date of Service Mar 22, 2017. Subjective Patient states that he did not sleep well at all last night and is very tired this morning. He moved beds last night and spilled a urine canister on himself. He said that he is not hurting from pain much this morning. He really just wanted to sleep. He was curious about the ultrasound findings and current hospital course. After my interview he retired to bed. Objective Vital Signs Date Time Temp Pulse Resp B/P (MAP) Pulse Ox O2 Delivery O2 Flow Rate FiO2 03/22/17 07:25 36.5 66 18 157/95 (115) 92 Room Air 03/22/17 06:32 144/70 (94) 03/22/17 05:39 65 168/66 (100) 03/22/17 04:00 36.5 66 20 181/105 (130) 97 Room Air 03/22/17 04:00 Room Air 03/22/17 00:11 36.8 57 20 156/94 (114) 95 Room Air 03/22/17 00:00 Room Air 03/21/17 20:55 63 128/73 (91) 03/21/17 20:17 36.8 55 18 154/81 (105) 96 Room Air 03/21/17 20:00 Room Air 03/21/17 16:00 Room Air 03/21/17 14:00 77 148/85 (106) 03/21/17 12:00 Room Air 03/21/17 11:26 36.4 61 16 120/69 (86) 92 Room Air 03/21/17 08:00 Room Air Physical Exam General Appearance: WD/WN, no apparent distress Laboratory Results Last 24 Hours Test 03/21/17 11:38 03/21/17 12:21 03/21/17 16:29 03/21/17 20:03 Bedside Glucose 101 mg/dl 81 mg/dl 117 mg/dl Sodium Level 147 mmol/L Potassium Level 3.0 mmol/L Chloride Level 110 mmol/L Carbon Dioxide Level 32 mmol/L Anion Gap 5.0 mmol/L Blood Urea Nitrogen 5 mg/dl Creatinine 1.00 mg/dl Est Creatinine Clear Calc Drug Dose 107.6 ml/min Estimated GFR () 91.8 Estimated GFR (Non- 79.2 BUN/Creatinine Ratio 4.8 Random Glucose 93 mg/dl Calcium Level 8.7 mg/dl Total Bilirubin 0.8 mg/dl Aspartate Amino Transf (AST/SGOT) 97 U/L Alanine Aminotransferase (ALT/SGPT) 67 U/L Alkaline Phosphatase 273 U/L Total Protein 7.3 gm/dl Albumin 1.9 gm/dl Globulin 5.4 gm/dl Albumin/Globulin Ratio 0.4 Lipase 99 U/L Test 03/22/17 03:33 White Blood Count 5.05 K/uL Red Blood Count 5.06 M/uL Hemoglobin 12.9 g/dL Hematocrit 38.5 % Mean Corpuscular Volume 76.1 fL Mean Corpuscular Hemoglobin 25.5 pg Mean Corpuscular Hemoglobin Concent 33.5 g/dl RDW Standard Deviation 41.2 fL RDW Coefficient of Variation 15.2 % Platelet Count 130 K/uL Mean Platelet Volume 10.8 fL Platelet Estimate DECREASED Sodium Level 146 mmol/L Potassium Level 3.2 mmol/L Chloride Level 109 mmol/L Carbon Dioxide Level 29 mmol/L Anion Gap 8.0 mmol/L Blood Urea Nitrogen 5 mg/dl Creatinine 0.97 mg/dl Est Creatinine Clear Calc Drug Dose 110.9 ml/min Estimated GFR () 95.2 Estimated GFR (Non- 82.2 BUN/Creatinine Ratio 5.0 Random Glucose 80 mg/dl Calcium Level 8.7 mg/dl Magnesium Level 1.8 mg/dl Vancomycin Level Trough 28.5 mcg/ml Medications Current Inpatient Medications Medications (Trade) Dose Ordered Sig/Beata Route Start Time Stop Time Status Last Admin Dose Admin Acetaminophen (Tylenol Tab) 650 mg Q4H PRN PO 03/17/17 12:00 04/16/17 11:59 Magnesium Hydroxide (Milk Of Magnesia Susp) 30 ml Q12H PRN PO 03/17/17 12:00 04/16/17 11:59 Ondansetron HCl (Zofran Inj) 4 mg Q6H PRN IV 03/17/17 12:00 04/16/17 11:59 03/21/17 11:20 4 MG Nitroglycerin (Nitrostat Tab) 0.4 mg UD PRN SL 03/17/17 12:00 04/16/17 11:59 Insulin Aspart (novoLOG ASPART) SLIDING SCALE If C... ACHS SC 03/17/17 16:30 04/16/17 16:29 03/22/17 08:05 11 UNITS Glucose (Glucose 40% Gel) 15-30 GRAMS 15 GRAMS... UD PRN PO 03/17/17 12:00 04/16/17 11:59 Glucose (Glucose Chew Tab) 4-8 Tablets 4 Tabl... UD PRN PO 03/17/17 12:00 04/16/17 11:59 Dextrose (Dextrose 50% 50ML Syringe) 25-50ML OF 50% DW IV FOR... UD PRN IV 03/17/17 12:00 04/16/17 11:59 Glucagon (Glucagon Inj) 1 mg UD PRN SQ 03/17/17 12:00 04/16/17 11:59 Bupropion HCl (Wellbutrin-Sr Tab) 100 mg DAILY PO 03/18/17 09:00 04/17/17 08:59 03/22/17 07:41 100 MG Diltiazem HCl (TIAzac CAP) 180 mg QAM PO 03/18/17 09:00 04/17/17 08:59 03/22/17 07:41 180 MG Duloxetine HCl (Cymbalta Cap) 30 mg QAM PO 03/18/17 09:00 04/17/17 08:59 03/22/17 07:40 30 MG EZETIMIBE (Zetia Tab) 10 mg HS PO 03/17/17 21:00 04/16/17 20:59 03/21/17 20:58 10 MG Folic Acid (Folvite Tab) 1 mg DAILY PO 03/18/17 09:00 04/17/17 08:59 03/22/17 07:40 1 MG Furosemide (Lasix Tab) 40 mg QAM PO 03/18/17 09:00 04/17/17 08:59 03/22/17 07:41 40 MG Insulin Glargine (Lantus Solostar Pen) 10 units HS SC 03/17/17 21:00 04/16/17 20:59 03/21/17 21:00 10 UNITS Isosorbide Mononitrate (Imdur Ext Rel Tab) 120 mg QAM PO 03/18/17 09:00 04/17/17 08:59 03/22/17 07:39 120 MG Lactulose (Chronulac Syrup) 10 gm TID PO 03/17/17 14:00 04/16/17 13:59 03/22/17 07:40 10 GM Lisinopril (Zestril Tab) 10 mg QAM PO 03/18/17 09:00 04/17/17 08:59 03/22/17 07:41 10 MG Metoprolol Tartrate (Lopressor Tab) 50 mg TID PO 03/17/17 14:00 04/16/17 13:59 03/22/17 07:40 50 MG Multivitamins (Multivitamin Tab) 1 tab QAM PO 03/18/17 09:00 04/17/17 08:59 03/22/17 07:39 1 TAB Pantoprazole Sodium (Protonix Tab) 40 mg BID PO 03/17/17 21:00 04/16/17 20:59 03/22/17 07:39 40 MG Potassium Chloride (Klor-Con Tab) 20 meq BIDM PO 03/17/17 17:00 04/16/17 16:59 03/22/17 07:40 20 MEQ Rifaximin (Xifaxan Tab) 550 mg BID PO 03/17/17 21:00 04/16/17 20:59 03/22/17 07:40 550 MG Tamsulosin HCl (Flomax Cap) 0.4 mg HS PO 03/17/17 21:00 04/16/17 20:59 03/21/17 20:58 0.4 MG Miscellaneous Information (Order Awaiting Action) 1 ea QS PO 03/17/17 16:00 04/16/17 15:59 Miscellaneous Information (Order Awaiting Action) 1 ea QS N/A 03/17/17 16:00 04/16/17 15:59 Vancomycin HCl (Consult) 1 ea UD PRN N/A 03/17/17 14:30 04/16/17 14:29 Tramadol HCl (Ultram Tab) 50 mg Q4H PRN PO 03/17/17 23:45 04/16/17 23:44 03/21/17 16:13 50 MG Morphine Sulfate (MoRPHine SULFATE INJ) 4 mg Q2H PRN IV 03/17/17 23:45 03/31/17 23:44 03/20/17 03:11 4 MG Vancomycin HCl 1750 mg/Sodium Chloride 535 ml @ 200 mls/hr Q8H IV 03/19/17 20:00 04/30/17 19:59 Future Hold 03/22/17 03:48 200 MLS/HR Aspirin (Ecotrin Tab) 81 mg QAM PO 03/20/17 09:00 04/19/17 08:59 03/22/17 07:40 81 MG Oxycodone HCl (Roxicodone Immediate Rel Tab) 10 mg Q6 PRN PO 03/19/17 18:30 04/02/17 18:29 03/21/17 21:04 10 MG Enoxaparin Sodium (Lovenox Inj) 129 mg Q12H SQ 03/20/17 00:00 04/19/17 00:00 Future hold 03/21/17 11:43 129 MG Hydralazine HCl (HydrALAZINE INJ) 10 mg Q4H PRN IV 03/20/17 07:30 04/19/17 07:29 Assessment and Plan Assessment and Plan: Impression Patient is a 66 year old male with acute osteomyelitis/discitis, managing acute care in our hospital. He is receiving a second opinion from [facility] after [facility] declined transplant. He is in agreement with our medical management at this time. Assessment/Plan 1. Osteomyelitis/discitis 1a Blood culture shows Coagulase negative Staphylococcus 1b Patient on vancomycin 1c Maintain vanco levels at 15-20 micrograms/mL for as recommended for complicated infection 1d Monitoring ongoing for blood culture sensitivities 1e Consult ID to determine if IV daptomycin is needed, if so, a PICC line is then necessary Plan for PICC line insertion 03/23/17 if cultures negative, and will be discharged on IV daptomycin for 6 weeks at home. 2. Depression on Cymbalta combination Wellbutrin. Wellbutrin was added about 2 months ago. He still has symptoms of depression but baseline is stable. Continue to monitor. 3. Afib Hold Coumadin until r/o surgery with certainty. Currently: Lovenox, metoprolol, diltiazem. DVT prophylaxis with Lovenox 4. Diabetes mellitis type 2 Stable On Lantus/SSI and Zetia 5. Liver mass [facility] denied request for transplant, patient is getting a second opinion from [facility]. On Xifaxan. 6. Hypertension Continue to monitor. Currently: metoprolol, diltiazem, Lasix, Imdur, Zestril 7. Chest pain History of bypass, on aspirin currently -8-.- -Z-t-v-i-t-i-n-g- -a-n-d- -V-y-n-o-r-m-a-l- -l-a-b-s- -r--/--o- -s-z-a-z-y-d-p-d-n-t-i-s--,- -l-i-v-e-r--/--k-g-o-i-a-r-y- -b-s-o-p-i-y-o-g-y- -B-w-u-v-a-t-e-d- -A-S-T- -a-n-d- -A-L-P-.- -s-v-q-m-a-l- -A-L-T-.- - - -Y-j-q-o-r-m-a-l- -l-c-h-m-a-n-q-p-q-t-e-s- -w-i-t-h- -l-o-w- -J-s-f-y-h-y-i-u-m-.- - - -K-z-r-s-i-d-e-r- -K-C-l-.- - - -n-d-s-o-f-d-o-u-n-d- -y-k-g-d-i-n-g-
[2017-03-22] MEDS ORDERED: COUGH DROP (SUGAR FREE) LOZ 24 LOZ/1 BOX PO PRN (12:30)
[2017-03-22] MEDS: ENOXAPARIN 150 MG/1ML SYR SQ SCH ×2 (12:36→23:48)
[2017-03-22] MEDS ORDERED: COUGH DROP (SUGAR FREE) LOZ 24 LOZ/1 BOX ONE (12:38)
--- NOTE | 2017-03-22 14:42 | Progress Note ---
Subjective Date of Service: Mar 22, 2017. Subjective pt states he feels better today although he has had increased urination and thirst. he has less back pain although still has some radicular component Problem List Medical Problems: (1) Constricting chest pain often radiating down left upper extremity Status: Acute (2) Lumbar back pain Status: Acute (3) Osteomyelitis Status: Acute Review of Systems Constitutional: + weakness, + fatigue, No fever, No chills Respiratory: No cough, No sputum, No wheezing Cardiac: No chest pain, No orthopnea, No edema Abdomen: No pain, No nausea, No vomiting, No diarrhea Objective Vital Signs Date Time Temp Pulse Resp B/P (MAP) Pulse Ox O2 Delivery O2 Flow Rate FiO2 03/22/17 05:39 65 168/66 (100) 03/22/17 04:00 36.5 66 20 181/105 (130) 97 Room Air 03/22/17 04:00 Room Air 03/22/17 00:11 36.8 57 20 156/94 (114) 95 Room Air 03/22/17 00:00 Room Air 03/21/17 20:55 63 128/73 (91) 03/21/17 20:17 36.8 55 18 154/81 (105) 96 Room Air 03/21/17 20:00 Room Air 03/21/17 16:00 Room Air 03/21/17 14:00 77 148/85 (106) 03/21/17 12:00 Room Air 03/21/17 11:26 36.4 61 16 120/69 (86) 92 Room Air 03/21/17 08:00 Room Air 03/21/17 07:24 36.4 70 16 161/90 (113) 95 Room Air Physical Exam General Appearance: + mild distress, + obese Eyes: PERRL, EOMI Respiratory/Chest: chest non-tender, lungs clear, + decreased breath sounds ( bases) Cardiovascular: regular rate, rhythm, no murmur Abdomen: normal bowel sounds, non tender, soft Extremities: no pedal edema, no calf tenderness Neurologic/Psychiatric: alert, oriented x 3 Laboratory Results Last 24 Hours Test 03/21/17 07:16 03/21/17 07:36 03/21/17 11:38 03/21/17 12:21 Activated Partial Thromboplast Time 38.0 SECONDS Partial Thromboplastin Ratio 1.5 Bedside Glucose 85 mg/dl 101 mg/dl Sodium Level 147 mmol/L Potassium Level 3.0 mmol/L Chloride Level 110 mmol/L Carbon Dioxide Level 32 mmol/L Anion Gap 5.0 mmol/L Blood Urea Nitrogen 5 mg/dl Creatinine 1.00 mg/dl Est Creatinine Clear Calc Drug Dose 107.6 ml/min Estimated GFR () 91.8 Estimated GFR (Non- 79.2 BUN/Creatinine Ratio 4.8 Random Glucose 93 mg/dl Calcium Level 8.7 mg/dl Total Bilirubin 0.8 mg/dl Aspartate Amino Transf (AST/SGOT) 97 U/L Alanine Aminotransferase (ALT/SGPT) 67 U/L Alkaline Phosphatase 273 U/L Total Protein 7.3 gm/dl Albumin 1.9 gm/dl Globulin 5.4 gm/dl Albumin/Globulin Ratio 0.4 Lipase 99 U/L Test 03/21/17 16:29 03/21/17 20:03 03/22/17 03:33 Bedside Glucose 81 mg/dl 117 mg/dl White Blood Count 5.05 K/uL Red Blood Count 5.06 M/uL Hemoglobin 12.9 g/dL Hematocrit 38.5 % Mean Corpuscular Volume 76.1 fL Mean Corpuscular Hemoglobin 25.5 pg Mean Corpuscular Hemoglobin Concent 33.5 g/dl RDW Standard Deviation 41.2 fL RDW Coefficient of Variation 15.2 % Platelet Count 130 K/uL Mean Platelet Volume 10.8 fL Platelet Estimate DECREASED Sodium Level 146 mmol/L Potassium Level 3.2 mmol/L Chloride Level 109 mmol/L Carbon Dioxide Level 29 mmol/L Anion Gap 8.0 mmol/L Blood Urea Nitrogen 5 mg/dl Creatinine 0.97 mg/dl Est Creatinine Clear Calc Drug Dose 110.9 ml/min Estimated GFR () 95.2 Estimated GFR (Non- 82.2 BUN/Creatinine Ratio 5.0 Random Glucose 80 mg/dl Calcium Level 8.7 mg/dl Magnesium Level 1.8 mg/dl Vancomycin Level Trough 28.5 mcg/ml Assessment and Plan 66 y/o M with acute osteomyelitis/discitis. currently no plans for surgical intervention, pt has had resolution of his nausea and vomiting with only mild transaminitis, does have history of liver mass/cancer. Osteomyelitis/discitis: noted on MRI from 03/10/17, blood cultures show 2 of 2 with gram positives found to be coag negative staph, de escalate to vanco second time according to pt. will move to daptomycin for ease of home use unless ID has other ideas, ortho spine is following, no intervention planned but Dr Finnegan, pt with persistent but improved radicular back pain lovenox for his AC as we transition back to coumadin used for his afib Chest pain:no recurrence, hx of bypass [id number] troponin, resume asa Afib: Lovenox and now starting back to coumadin, metoprolol and diltiazem DM: ,Lantus plus SSI, Zetia as at home, Liver mass: AST and AP with mild elevation, on xifaxin, I personally called [facility], Dr Meyers, she states that this recurrent infection does not preclude him from transplant evaluation given the unique situation of his liver cancer, they will coordinate outpt eval by [facility] ID and maybe even spine , pt was informed and is happy HTN : chronic diastolic heart failure-continues to be stable, metoprolol, diltiazem, lasix, imdur, zestril Depression: wellbutrin Other: Full code lovenox for DVT proph
--- NOTE | 2017-03-22 15:22 | Progress Note ---
Subjective Date of Service: Mar 22, 2017. Subjective Pt evaluation today including: conversation w/ patient, physical exam, chart review, lab review pt still with pain, no fevers. repeat blood cultures pending. initial with gas and oil servicer, meth resistant. echo negative for veg. tolerating vanco, level elevated today. awaiting picc line. no Or planned. remaining ros reviewed and are negative. Problem List Medical Problems: (1) Constricting chest pain often radiating down left upper extremity Status: Acute (2) Lumbar back pain Status: Acute (3) Osteomyelitis Status: Acute Objective Vital Signs Date Time Temp Pulse Resp B/P (MAP) Pulse Ox O2 Delivery O2 Flow Rate FiO2 03/22/17 15:16 36.5 53 20 155/70 (98) 96 Room Air 03/22/17 12:00 Room Air 03/22/17 11:54 36.3 68 16 158/81 (106) 97 Room Air 03/22/17 08:00 Room Air 03/22/17 07:25 36.5 66 18 157/95 (115) 92 Room Air 03/22/17 06:32 144/70 (94) 03/22/17 05:39 65 168/66 (100) 03/22/17 04:00 36.5 66 20 181/105 (130) 97 Room Air 03/22/17 04:00 Room Air 03/22/17 00:11 36.8 57 20 156/94 (114) 95 Room Air 03/22/17 00:00 Room Air 03/21/17 20:55 63 128/73 (91) 03/21/17 20:17 36.8 55 18 154/81 (105) 96 Room Air 03/21/17 20:00 Room Air 03/21/17 16:00 Room Air Physical Exam General Appearance: WD/WN, no apparent distress Eyes: normal inspection, EOMI Neck: supple Respiratory/Chest: normal breath sounds, no respiratory distress Abdomen: soft Extremities: no pedal edema Neurologic/Psychiatric: alert, oriented x 3 Skin: normal color Laboratory Results Item Value Date Time Blood Culture - Preliminary Resulted 03/17/17 1110 Blood Coag Neg Staph Not Lugdunensis Blood Culture - Preliminary Resulted 03/17/17 1055 Blood Coag Neg Staph Not Lugdunensis Last 24 Hours Test 03/21/17 16:29 03/21/17 20:03 03/22/17 03:33 03/22/17 07:41 Bedside Glucose 81 mg/dl 117 mg/dl 89 mg/dl White Blood Count 5.05 K/uL Red Blood Count 5.06 M/uL Hemoglobin 12.9 g/dL Hematocrit 38.5 % Mean Corpuscular Volume 76.1 fL Mean Corpuscular Hemoglobin 25.5 pg Mean Corpuscular Hemoglobin Concent 33.5 g/dl RDW Standard Deviation 41.2 fL RDW Coefficient of Variation 15.2 % Platelet Count 130 K/uL Mean Platelet Volume 10.8 fL Platelet Estimate DECREASED Sodium Level 146 mmol/L Potassium Level 3.2 mmol/L Chloride Level 109 mmol/L Carbon Dioxide Level 29 mmol/L Anion Gap 8.0 mmol/L Blood Urea Nitrogen 5 mg/dl Creatinine 0.97 mg/dl Est Creatinine Clear Calc Drug Dose 110.9 ml/min Estimated GFR () 95.2 Estimated GFR (Non- 82.2 BUN/Creatinine Ratio 5.0 Random Glucose 80 mg/dl Calcium Level 8.7 mg/dl Magnesium Level 1.8 mg/dl Vancomycin Level Trough 28.5 mcg/ml Test 03/22/17 11:47 Bedside Glucose 100 mg/dl Assessment and Plan (1) Osteomyelitis Assessment & Plan: echo negative, repeat cultures pending, if negative, ok for picc will change to dapto for ease of dosing 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 last treated with IV in early 2015. now with large collection, unclear if he would be candidate for surgery but with recurrent infection may benefit from eval, otherwise he will likely require prolonged IV abx with po supprression, this was plan in 2016 but he did not follow with ID post d/c from hospital. Per ortho, pt would require transfer to tertiary care center if surgical options explored. If pain persists would suggest transfer with recurrent infection
[2017-03-22] MEDS ORDERED: WARFARIN SOD 10 MG TAB PO SCH (16:00)
[2017-03-22] MEDS: DAPTOmycin IV 780 MG in SODIUM CHLORIDE 0.9% 50ML 50 ML IV SCH (17:54)
[2017-03-22] MEDS: EZETIMIBE 10MG TAB PO SCH (20:53)
[2017-03-22] MEDS: INSULIN GLARGINE SOLOSTAR 100 UNITS/ML 3 ML PEN SC SCH (20:58)
[2017-03-22] MEDS: TAMSULOSIN HCL 0.4 MG CAP PO SCH (21:57)
[2017-03-22] MEDS: OXYCODONE HCL IR 5 MG TAB (IMMEDIATE RELEASE) PO PRN (22:02)
[2017-03-23] VITALS (8 sets, daily range): BP systolic 118–173; BP diastolic 66–105; PULSE 55–71; TEMP 36.3–37; O2SAT 92–97
[2017-03-23] MEDS: INSULIN ASPART 100 UNITS/ML 3 ML PEN SC SCH ×4 (06:30→20:57)
[2017-03-23] MEDS: RIFAXIMIN TAB 550 MG TAB PO SCH ×2 (07:34→20:47)
[2017-03-23] MEDS: POTASSIUM CHLORIDE 20 MEQ TABCR PO SCH ×2 (07:34→17:22)
[2017-03-23] MEDS: BuPROPion SR 100 MG TABCR PO SCH (07:35)
[2017-03-23] MEDS: DULOXETINE (CYMBALTA) 30 MG CAP PO SCH (07:35)
[2017-03-23] MEDS: PANTOprazole SOD 40 MG TAB PO SCH ×2 (07:35→20:47)
[2017-03-23] MEDS: ASPIRIN 81 MG ECTAB PO SCH (07:35)
[2017-03-23] MEDS: MULTIVITAMIN TAB PO SCH (07:35)
[2017-03-23] MEDS: ISOSORBIDE MONONITRATE 60 MG TABCR PO SCH (07:35)
[2017-03-23] MEDS: DILTIAZEM HCL (TIAzac) 180 MG CAPCR PO SCH (07:36)
[2017-03-23] MEDS: METOPROLOL TARTRATE 50 MG TAB PO SCH ×4 (07:36→20:49)
[2017-03-23] MEDS: LISINOPRIL 10 MG TAB PO SCH (07:36)
[2017-03-23] MEDS: FUROSEMIDE 40 MG TAB PO SCH (07:37)
[2017-03-23] MEDS: [UNRECOGNIZED DRUG - OTHER] PO SCH ×3 (07:37→23:43)
[2017-03-23] MEDS: LACTULOSE SYRUP 10 GM/15 ML BTL 473 ML PO SCH ×3 (07:37→20:46)
[2017-03-23 08:00] LABS: INR 1.4 (0.9-1.1); PROTHROMBIN TIME (PATIENT) 14.7 SECONDS (9.0-12.0)
[2017-03-23] MEDS: ONDANSETRON INJ 2 MG/ML 2 ML VIAL IV PRN (08:19)
[2017-03-23] MEDS: OXYCODONE HCL IR 5 MG TAB (IMMEDIATE RELEASE) PO PRN ×2 (10:18→18:13)
--- NOTE | 2017-03-23 10:43 | Progress Note ---
Subjective Date of Service: Mar 23, 2017. Subjective afebrile, on dapto, tolerating well. 03/21 blood cultures negative x 4. for prolonged abx. no overnight events. no new labs. Problem List Medical Problems: (1) Constricting chest pain often radiating down left upper extremity Status: Acute (2) Lumbar back pain Status: Acute (3) Osteomyelitis Status: Acute Objective Vital Signs Date Time Temp Pulse Resp B/P (MAP) Pulse Ox O2 Delivery O2 Flow Rate FiO2 03/23/17 08:20 37.0 71 18 161/90 (113) 03/23/17 08:00 Room Air 03/23/17 07:52 36.7 67 16 173/105 (127) 92 Room Air 03/23/17 04:20 36.4 60 18 132/69 (90) 96 Room Air 03/23/17 04:00 Room Air 03/23/17 00:13 36.7 64 18 129/80 (96) 97 Room Air 03/23/17 00:00 Room Air 03/22/17 21:00 70 128/72 (90) 03/22/17 20:00 Room Air 03/22/17 19:43 36.5 67 18 165/98 (120) 97 Room Air 03/22/17 16:00 Room Air 03/22/17 15:16 36.5 53 20 155/70 (98) 96 Room Air 03/22/17 12:00 Room Air 03/22/17 11:54 36.3 68 16 158/81 (106) 97 Room Air Laboratory Results Item Value Date Time Blood Culture - Preliminary Resulted 03/21/17 1426 Blood NO GROWTH TO DATE. Blood Culture - Preliminary Resulted 03/21/17 1054 Blood NO GROWTH TO DATE. Blood Culture - Preliminary Resulted 03/21/17 1038 Blood NO GROWTH TO DATE. 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 last treated with IV in early 2015. now with large collection, unclear if he would be candidate for surgery but with recurrent infection may benefit from eval, otherwise he will likely require prolonged IV abx with po supprression, this was plan in 2016 but he did not follow with ID post d/c from hospital. Per ortho, pt would require transfer to tertiary care center if surgical options explored. If pain persists would suggest transfer with recurrent infection will need min 6 weeks IV abx, tentative stop date 04/28. will need weekly cbc, cmp, esr, cpk while on abx. will need ID follow up 2 weeks post d/c. if worsening pain or decreased ROM will need neurosurgery referral.
[2017-03-23] MEDS ORDERED: DULOXETINE (CYMBALTA) 30 MG CAP PO ONE (11:15)
[2017-03-23] MEDS ORDERED: LISINOPRIL 10 MG TAB PO ONE (11:15)
[2017-03-23] MEDS: ENOXAPARIN 150 MG/1ML SYR SQ SCH ×2 (11:32→23:43)
[2017-03-23] MEDS ORDERED: WARFARIN SOD 7.5 MG TAB PO SCH (16:00)
--- NOTE | 2017-03-23 17:33 | DIAGNOSTIC IMAGING REPORT ---
CHEST ONE VIEW PORTABLE CLINICAL HISTORY: picc placement right arm COMPARISON STUDY: 03/17/2017 FINDINGS: The heart is borderline enlarged. There are postsurgical changes of midline sternotomy. There is been interval placement right-sided PICC catheter. The tip projects over the superior vena cava. There is mild central vascular prominence. There is subtle interstitial thickening similar to the prior study. There is no lobar consolidation. There are no significant pleural effusions.[ IMPRESSION: Interval placement of right-sided PICC catheter, the tip of which projects over the superior vena cava Electronically signed by: Oscar Sheppard M.D. 03/23/2017 5:32 PM Dictated Date/Time: 03/23/2017 5:16 PM
--- NOTE | 2017-03-23 17:44 | Medical Student: [facility] ---
Med Student Progress Note Date of Service Mar 23, 2017. Subjective Patient states he is doing about the same today as day's prior. He is still in some pain that the hydrocodone is able to relieve. He said he slept well throughout the night last night. Review of Systems Psychiatric: + depression symptoms (loss of interest and feeling depressed) Skin: No rash Objective Vital Signs Date Time Temp Pulse Resp B/P (MAP) Pulse Ox O2 Delivery O2 Flow Rate FiO2 03/23/17 04:20 36.4 60 18 132/69 (90) 96 Room Air 03/23/17 04:00 Room Air 03/23/17 00:13 36.7 64 18 129/80 (96) 97 Room Air 03/23/17 00:00 Room Air 03/22/17 21:00 70 128/72 (90) 03/22/17 20:00 Room Air 03/22/17 19:43 36.5 67 18 165/98 (120) 97 Room Air 03/22/17 16:00 Room Air 03/22/17 15:16 36.5 53 20 155/70 (98) 96 Room Air 03/22/17 12:00 Room Air 03/22/17 11:54 36.3 68 16 158/81 (106) 97 Room Air 03/22/17 08:00 Room Air 03/22/17 07:25 36.5 66 18 157/95 (115) 92 Room Air Physical Exam General Appearance: WD/WN, no apparent distress ENT: normal ENT inspection, hearing grossly normal Neck: supple Respiratory/Chest: lungs clear, normal breath sounds Cardiovascular: regular rate, rhythm, no JVD Extremities: normal inspection, no pedal edema Neurologic/Psychiatric: no motor/sensory deficits, alert Laboratory Results Last 24 Hours Test 03/22/17 07:41 03/22/17 11:47 03/22/17 16:36 03/22/17 20:26 Bedside Glucose 89 mg/dl 100 mg/dl 85 mg/dl 103 mg/dl Test 03/23/17 04:44 Test 03/17/17 10:55 03/17/17 11:10 03/17/17 18:02 03/18/17 00:05 Total Bilirubin 0.9 Direct Bilirubin 0.3 Aspartate Amino Transferase (AST) 76 Alanine Aminotransferase (ALT) 56 Alkaline Phosphatase 261 Total Protein 7.9 Albumin 2.2 Lipase 121 Immature Granulocyte % (Auto) 0.0 White Blood Count 4.16 Red Blood Count 5.77 Hemoglobin 14.0 Hematocrit 43.9 Mean Corpuscular Volume 76.1 Mean Corpuscular Hemoglobin 24.3 Mean Corpuscular Hemoglobin Concent 31.9 Platelet Count 189 Mean Platelet Volume 10.5 Neutrophils (%) (Auto) 62.1 Lymphocytes (%) (Auto) 25.7 Monocytes (%) (Auto) 10.3 Eosinophils (%) (Auto) 1.7 Basophils (%) (Auto) 0.2 Neutrophils # (Auto) 2.58 Lymphocytes # (Auto) 1.07 Monocytes # (Auto) 0.43 Eosinophils # (Auto) 0.07 Basophils # (Auto) 0.01 Immature Granulocyte # (Auto) 0.00 Troponin I 0.050 0.055 Test 03/18/17 02:59 03/18/17 07:15 03/20/17 06:46 03/20/17 19:40 Estimated Average Glucose 143 Hemoglobin A1c 6.6 Hemoglobin A1c Pathologist Comment Prothrombin Time 15.2 Prothrombin Time INR 1.4 White Blood Count 4.17 Red Blood Count 5.16 Hemoglobin 13.5 Hematocrit 39.0 Mean Corpuscular Volume 75.6 Mean Corpuscular Hemoglobin 26.2 Mean Corpuscular Hemoglobin Concent 34.6 RDW Standard Deviation 40.7 RDW Coefficient of Variation 14.8 Platelet Count 164 Mean Platelet Volume 10.9 PTT 37.6 Partial Thromboplastin Ratio 1.4 Vancomycin Level Trough 17.2 Test 03/21/17 07:16 03/21/17 12:21 03/22/17 03:33 03/22/17 16:36 PTT 38.0 Partial Thromboplastin Ratio 1.5 Sodium Level 147 146 Potassium Level 3.0 3.2 Chloride Level 110 109 Carbon Dioxide Level 32 29 Anion Gap 5.0 8.0 Blood Urea Nitrogen 5 5 Creatinine 1.00 0.97 Est Creatinine Clear Calc Drug Dose 107.6 110.9 Estimated GFR () 91.8 95.2 Estimated GFR (Non- 79.2 82.2 BUN/Creatinine Ratio 4.8 5.0 Random Glucose 93 80 Calcium Level 8.7 8.7 Total Bilirubin 0.8 Aspartate Amino Transferase (AST) 97 Alanine Aminotransferase (ALT) 67 Alkaline Phosphatase 273 Total Protein 7.3 Albumin 1.9 Globulin 5.4 Albumin/Globulin Ratio 0.4 Lipase 99 White Blood Count 5.05 Red Blood Count 5.06 Hemoglobin 12.9 Hematocrit 38.5 Mean Corpuscular Volume 76.1 Mean Corpuscular Hemoglobin 25.5 Mean Corpuscular Hemoglobin Concent 33.5 RDW Standard Deviation 41.2 RDW Coefficient of Variation 15.2 Platelet Count 130 Mean Platelet Volume 10.8 Platelet Estimate DECREASED Magnesium Level 1.8 Vancomycin Level Trough 28.5 POC Glucose 85 Test 03/22/17 20:26 03/23/17 04:44 POC Glucose 103 Prothrombin Time Pending Prothrombin Time INR Pending Date/Time Source Procedure Growth Status 03/21/17 14:26 Blood Blood Culture Pending Received 03/21/17 14:20 Blood Blood Culture Pending Received 03/21/17 10:54 Blood Blood Culture Pending Received 03/21/17 10:38 Blood Blood Culture Pending Received 03/17/17 11:10 Blood Blood Culture - Final Coag Neg Staph Not Lugdunensis Complete 03/17/17 10:55 Blood Blood Culture - Final Coag Neg Staph Not Lugdunensis Complete Medications Current Inpatient Medications Medications (Trade) Dose Ordered Sig/Beata Route Start Time Stop Time Status Last Admin Dose Admin Acetaminophen (Tylenol Tab) 650 mg Q4H PRN PO 03/17/17 12:00 04/16/17 11:59 Magnesium Hydroxide (Milk Of Magnesia Susp) 30 ml Q12H PRN PO 03/17/17 12:00 04/16/17 11:59 Ondansetron HCl (Zofran Inj) 4 mg Q6H PRN IV 03/17/17 12:00 04/16/17 11:59 03/21/17 11:20 4 MG Nitroglycerin (Nitrostat Tab) 0.4 mg UD PRN SL 03/17/17 12:00 04/16/17 11:59 Insulin Aspart (novoLOG ASPART) SLIDING SCALE If C... ACHS SC 03/17/17 16:30 04/16/17 16:29 03/22/17 18:03 3 UNITS Glucose (Glucose 40% Gel) 15-30 GRAMS 15 GRAMS... UD PRN PO 03/17/17 12:00 04/16/17 11:59 Glucose (Glucose Chew Tab) 4-8 Tablets 4 Tabl... UD PRN PO 03/17/17 12:00 04/16/17 11:59 Dextrose (Dextrose 50% 50ML Syringe) 25-50ML OF 50% DW IV FOR... UD PRN IV 03/17/17 12:00 04/16/17 11:59 Glucagon (Glucagon Inj) 1 mg UD PRN SQ 03/17/17 12:00 04/16/17 11:59 Bupropion HCl (Wellbutrin-Sr Tab) 100 mg DAILY PO 03/18/17 09:00 04/17/17 08:59 03/22/17 07:41 100 MG Diltiazem HCl (TIAzac CAP) 180 mg QAM PO 03/18/17 09:00 04/17/17 08:59 03/22/17 07:41 180 MG Duloxetine HCl (Cymbalta Cap) 30 mg QAM PO 03/18/17 09:00 04/17/17 08:59 03/22/17 07:40 30 MG EZETIMIBE (Zetia Tab) 10 mg HS PO 03/17/17 21:00 04/16/17 20:59 03/22/17 20:53 10 MG Folic Acid (Folvite Tab) 1 mg DAILY PO 03/18/17 09:00 04/17/17 08:59 03/22/17 07:40 1 MG Furosemide (Lasix Tab) 40 mg QAM PO 03/18/17 09:00 04/17/17 08:59 03/22/17 07:41 40 MG Insulin Glargine (Lantus Solostar Pen) 10 units HS SC 03/17/17 21:00 04/16/17 20:59 03/22/17 20:58 10 UNITS Isosorbide Mononitrate (Imdur Ext Rel Tab) 120 mg QAM PO 03/18/17 09:00 04/17/17 08:59 03/22/17 07:39 120 MG Lactulose (Chronulac Syrup) 10 gm TID PO 03/17/17 14:00 04/16/17 13:59 03/22/17 20:50 10 GM Lisinopril (Zestril Tab) 10 mg QAM PO 03/18/17 09:00 04/17/17 08:59 03/22/17 07:41 10 MG Metoprolol Tartrate (Lopressor Tab) 50 mg TID PO 03/17/17 14:00 04/16/17 13:59 03/22/17 21:01 50 MG Multivitamins (Multivitamin Tab) 1 tab QAM PO 03/18/17 09:00 04/17/17 08:59 03/22/17 07:39 1 TAB Pantoprazole Sodium (Protonix Tab) 40 mg BID PO 03/17/17 21:00 04/16/17 20:59 03/22/17 20:54 40 MG Potassium Chloride (Klor-Con Tab) 20 meq BIDM PO 03/17/17 17:00 04/16/17 16:59 03/22/17 16:29 20 MEQ Rifaximin (Xifaxan Tab) 550 mg BID PO 03/17/17 21:00 04/16/17 20:59 03/22/17 20:54 550 MG Tamsulosin HCl (Flomax Cap) 0.4 mg HS PO 03/17/17 21:00 04/16/17 20:59 03/22/17 21:57 0.4 MG Miscellaneous Information (Order Awaiting Action) 1 ea QS PO 03/17/17 16:00 04/16/17 15:59 Miscellaneous Information (Order Awaiting Action) 1 ea QS N/A 03/17/17 16:00 04/16/17 15:59 Tramadol HCl (Ultram Tab) 50 mg Q4H PRN PO 03/17/17 23:45 04/16/17 23:44 03/21/17 16:13 50 MG Morphine Sulfate (MoRPHine SULFATE INJ) 4 mg Q2H PRN IV 03/17/17 23:45 03/31/17 23:44 03/20/17 03:11 4 MG Aspirin (Ecotrin Tab) 81 mg QAM PO 03/20/17 09:00 04/19/17 08:59 03/22/17 07:40 81 MG Oxycodone HCl (Roxicodone Immediate Rel Tab) 10 mg Q6 PRN PO 03/19/17 18:30 04/02/17 18:29 03/22/17 22:02 10 MG Enoxaparin Sodium (Lovenox Inj) 129 mg Q12H SQ 03/20/17 00:00 04/19/17 00:00 Future hold 03/22/17 23:48 129 MG Hydralazine HCl (HydrALAZINE INJ) 10 mg Q4H PRN IV 03/20/17 07:30 04/19/17 07:29 Menthol (Nice Zak) 1 zak Q1H PRN PO 03/22/17 12:30 04/21/17 12:29 Warfarin Sodium (Coumadin Tab) 10 mg SuTuThSa@1600 PO 03/22/17 16:00 04/21/17 15:59 03/22/17 15:38 10 MG Warfarin Sodium (Coumadin Tab) 7.5 mg MoWeFr@1600 PO 03/23/17 16:00 04/22/17 15:59 Daptomycin 780 mg/ Sodium Chloride 65.6 ml @ 100 mls/hr Q24H IV 03/22/17 18:00 05/03/17 17:59 03/22/17 17:54 100 MLS/HR Assessment and Plan Assessment and Plan: Impression Patient is a 66 year old male with acute osteomyelitis/discitis, managing acute care in our hospital. He is receiving a second opinion from [facility] after [place] declined transplant. He is in agreement with our medical management at this time. Assessment/Plan 1. Osteomyelitis/discitis 1a Blood culture shows Coagulase negative Staphylococcus 1b -G-y-q-i-e-n-t- -o-n- -t-q-a-a-z-n-y-c-i-n- Discontinue vancomycin secondary to starting IV daptomycin via PICC line 1c Maintain vanco levels at 15-20 micrograms/mL for as recommended for complicated infection 1d Monitoring ongoing for blood culture sensitivities 1e Consult ID to determine if IV daptomycin is needed, if so, a PICC line is then necessary Plan for PICC line insertion today 03/23/17, and will be discharged on IV daptomycin for 6 weeks at home. 2. Depression on Cymbalta combination Wellbutrin. Wellbutrin was added about 2 months ago. He still has symptoms of depression but baseline is stable. Continue to monitor. Increase Cymbalta from 30mg to 60mg due to depression symptoms and also pain. 3. Afib Hold Coumadin until r/o surgery with certainty. Currently: Lovenox, metoprolol, diltiazem. DVT prophylaxis with Lovenox 4. Diabetes mellitis type 2 Stable On Lantus/SSI and Zetia 5. Liver mass [facility] denied request for transplant, patient is getting a second opinion from [facility]. On Xifaxan. 6. Hypertension Continue to monitor. Currently: metoprolol, diltiazem, Lasix, Imdur, Zestril 7. Chest pain History of bypass, on aspirin currently -8-.- -B-d-m-i-t-i-n-g- -a-n-d- -D-b-d-o-r-m-a-l- -l-a-b-s- -r--/--o- -h-q-j-w-u-r-e-v-e-t-i-s--,- -l-i-v-e-r--/--c-f-x-i-a-r-y- -y-r-l-d-a-p-o-g-y- -G-i-d-v-a-t-e-d- -A-S-T- -a-n-d- -A-L-P-.- -x-g-n-m-a-l- -A-L-T-.- - - -X-d-c-o-r-m-a-l- -a-h-l-m-d-p-h-h-b-t-e-s- -w-i-t-h- -l-o-w- -G-h-g-f-i-i-i-u-m-.- - - -N-t-n-s-i-d-e-r- -K-C-l-.- - - -j-l-u-g-b-c-o-u-n-d- -f-o-i-d-i-n-g-
[2017-03-23] MEDS: DAPTOmycin IV 780 MG in SODIUM CHLORIDE 0.9% 50ML 50 ML IV SCH (17:55)
--- NOTE | 2017-03-23 19:02 | Progress Note ---
Subjective Date of Service: Mar 23, 2017. Subjective Pt evaluation today including: conversation w/ patient, physical exam, chart review, lab review, review of studies, review of inpatient medication list Pain: back and also radicular symptoms of legs PO Intake: normal Voiding: no voiding problems overall feeling ok tele stable overnight reports he is weak but strong enough to return home denies focal motor weakness of either leg - just paresthesias & pain denies fevers Problem List Medical Problems: (1) Constricting chest pain often radiating down left upper extremity Status: Acute (2) Lumbar back pain Status: Acute (3) Osteomyelitis Status: Acute Review of Systems Constitutional: No fever, No chills Respiratory: No cough, No shortness of breath Cardiac: No chest pain Abdomen: No pain, No diarrhea Objective Vital Signs Date Time Temp Pulse Resp B/P (MAP) Pulse Ox O2 Delivery O2 Flow Rate FiO2 03/23/17 16:00 Room Air 03/23/17 15:23 36.3 55 18 149/87 (107) 95 Room Air 03/23/17 12:00 Room Air 03/23/17 12:00 36.4 56 16 133/86 (102) 95 Room Air 03/23/17 08:20 37.0 71 18 161/90 (113) 03/23/17 08:00 Room Air 03/23/17 07:52 36.7 67 16 173/105 (127) 92 Room Air 03/23/17 04:20 36.4 60 18 132/69 (90) 96 Room Air 03/23/17 04:00 Room Air 03/23/17 00:13 36.7 64 18 129/80 (96) 97 Room Air 03/23/17 00:00 Room Air 03/22/17 21:00 70 128/72 (90) 03/22/17 20:00 Room Air 03/22/17 19:43 36.5 67 18 165/98 (120) 97 Room Air Physical Exam General Appearance: no apparent distress, + obese ENT: pharynx normal Neck: no JVD Respiratory/Chest: lungs clear, no respiratory distress, no accessory muscle use Cardiovascular: no gallop, no murmur, + irregularly irregular Abdomen: normal bowel sounds, non tender, soft, no organomegaly Extremities: no pedal edema Neurologic/Psychiatric: no motor/sensory deficits (of hip flexion, knee extension, or foot plantarflexion/dorsiflexion), alert, oriented x 3 Skin: no rash Laboratory Results Last 24 Hours Test 03/22/17 20:26 03/23/17 07:33 03/23/17 07:39 03/23/17 11:42 Bedside Glucose 103 mg/dl 97 mg/dl 121 mg/dl Prothrombin Time 14.7 SECONDS Prothromb Time International Ratio 1.4 Test 03/23/17 17:19 Bedside Glucose 92 mg/dl Assessment and Plan 66yo male: 1. L5-S1 diskitis - nonoperative Rx. Appreciate ID & orthopedics consultations. Plan 6-week course of IV daptomycin. Blood cx's this admission with coag negative staph - likely pathogen of diskitis. Echo negative for obvious SBE. PICC line consent obtained; to have PICC today; SW to arrange home IV abx therapy. 2. depression - increase cymbalta to 60mg daily; this should help pain from #1 as well. 3. L1/L2 compression fractures - check vitamin D level in am. Needs outpatient DEXA down the line. 4. 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 To be placed on transplant list in future. 5. h/o hepatic encephalopathy - lactulose + rifaximin. No symptoms at this time. 6. HTN - uncontrolled - increase lisinopril to 20mg qd. 7. DVT proph - lovenox/coumadin. Daily INR. 8. T2DM - controlled with current regimen. 9. h/o liver mass - followed by [facility]. 10. CAD - no symptoms at this time. Cont BB, statin, etc. 11. anemia - previous Hb electrophoresis with thalaseemia and Hemoglobin G [place]. hopefully home tomorrow Continued [facility] stay due to: multiple IV medications needed Discharge planning: home with home health, home with IV medication
[2017-03-23] MEDS: TAMSULOSIN HCL 0.4 MG CAP PO SCH (20:46)
[2017-03-23] MEDS: EZETIMIBE 10MG TAB PO SCH (20:47)
[2017-03-23] MEDS: INSULIN GLARGINE SOLOSTAR 100 UNITS/ML 3 ML PEN SC SCH (20:58)
[2017-03-24 00:11] VITALS: BP 119/69; PULSE 52; TEMP 36.6; O2SAT 96
[2017-03-24 04:42] VITALS: BP 133/80; PULSE 55; TEMP 36.5; O2SAT 93
[2017-03-24 06:20] LABS: HEMATOCRIT 36.8 % (42-52); MEAN CELL VOLUME 75.6 fL (80-100); MEAN CORPUSCULAR HEMOGLOBIN 25.9 pg (25-34); MEAN CORPUSCULAR HGB CONC 34.2 g/dl (32-36); MEAN PLATELET VOLUME 10.5 fL (7.4-10.4); PLATELET COUNT 143 K/uL (130-400); RED BLOOD COUNT 4.87 M/uL (4.7-6.1); WHITE BLOOD COUNT 4.81 K/uL (4.8-10.8)
[2017-03-24 06:33] LABS: INR 1.6 (0.9-1.1); PROTHROMBIN TIME (PATIENT) 17.5 SECONDS (9.0-12.0)
[2017-03-24 06:40] LABS: BUN/CREATININE RATIO 7.9 (10-20); CALCIUM 8.4 mg/dl (8.5-10.1); CREATININE 1.1 mg/dl (0.60-1.40); MAGNESIUM 1.7 mg/dl (1.8-2.4)
[2017-03-24 07:42] VITALS: BP 122/72; PULSE 61; TEMP 36.9; O2SAT 96
[2017-03-24] MEDS: [UNRECOGNIZED DRUG - OTHER] PO SCH (08:00)
[2017-03-24] MEDS: POTASSIUM CHLORIDE 20 MEQ TABCR PO SCH (08:56)
[2017-03-24] MEDS: LACTULOSE SYRUP 10 GM/15 ML BTL 473 ML PO SCH (08:57)
[2017-03-24] MEDS ORDERED: DULOXETINE HCL 60 MG CAP PO SCH (09:00)
[2017-03-24] MEDS: ASPIRIN 81 MG ECTAB PO SCH (09:00)
[2017-03-24] MEDS ORDERED: LISINOPRIL 20 MG TAB PO SCH (09:00)
[2017-03-24] MEDS: ISOSORBIDE MONONITRATE 60 MG TABCR PO SCH (09:02)
[2017-03-24] MEDS: FUROSEMIDE 40 MG TAB PO SCH (09:04)
[2017-03-24] MEDS: METOPROLOL TARTRATE 50 MG TAB PO SCH (09:05)
[2017-03-24] MEDS: MULTIVITAMIN TAB PO SCH (09:06)
[2017-03-24] MEDS: PANTOprazole SOD 40 MG TAB PO SCH (09:07)
[2017-03-24] MEDS: DILTIAZEM HCL (TIAzac) 180 MG CAPCR PO SCH (09:08)
[2017-03-24] MEDS: BuPROPion SR 100 MG TABCR PO SCH (09:09)
[2017-03-24] MEDS: RIFAXIMIN TAB 550 MG TAB PO SCH (09:10)
[2017-03-24] MEDS: INSULIN ASPART 100 UNITS/ML 3 ML PEN SC SCH ×2 (09:25→12:07)
[2017-03-24] MEDS ORDERED: POTASSIUM CHLORIDE 10 MEQ TABCR PO ONE (09:30)
[2017-03-24] MEDS: MAGNESIUM SULFATE 1GM / D5W 1 GM in PREMIXED IN D5W 100 ML IV SCH ×2 (09:37→10:49)
[2017-03-24 10:48] VITALS: O2SAT 96
[2017-03-24 11:20] VITALS: BP 127/84; PULSE 60; TEMP 36.9; O2SAT 97
[2017-03-24] MEDS ORDERED: POTASSIUM CHLORIDE 20 MEQ TABCR PO SCH (12:00)
[2017-03-24] MEDS: ENOXAPARIN 150 MG/1ML SYR SQ SCH (12:03)
[2017-03-24] MEDS: DAPTOmycin IV 780 MG in SODIUM CHLORIDE 0.9% 50ML 50 ML IV SCH (12:04)
[2017-03-24 13:27] VITALS: BP 127/84; PULSE 60; TEMP 36.9; O2SAT 97
[2017-03-24] MEDS ORDERED: DULO60CA44 PO (13:33)
[2017-03-24] MEDS ORDERED: MGNO400 PO (13:33)
[2017-03-24] MEDS ORDERED: DAPT500I PO (13:33)
[2017-03-24] MEDS ORDERED: RXC5 PO (13:35)
--- NOTE | 2017-03-24 13:43 | Discharge Instructions ---
Discharge Instructions Date of Service Mar 24, 2017. Admission Reason for Admission: Osteomyelitis Discharge Discharge Diagnosis / Problem: osteomyelitis/diskitis of the lumbar spine Discharge Goals Goal(s): Learn about illness, Diagnostic testing, Therapeutic intervention Activity Recommendations Activity Limitations: as noted below Avoid any activity that makes your back pain worse. No heavy lifting over 15 pounds. Avoid heavy exertional activities (heavy exercise physiologist certified, etc). DO NOT DRIVE OR OPERATE HEAVY MACHINERY IF YOU ARE TAKING OXYCODONE PAIN MEDICATION. . Instructions / Follow-Up Instructions / Follow-Up From Dr. Ferro: 1. You will receive a 6-week course of IV antibiotics via your PICC line. You will need weekly labs to ensure resolution of your infection and to ensure that the antibiotic continues to be safe. 2. Please INCREASE your cymbalta to 60mg once daily for your depression and your pain. 3. May use OXYCODONE 5mg tablets - 1-2 tablets every 6 hours as needed for back pain. Note that the oxycodone WILL make you constipated and can cause sedation. 4. Your coumadin level (INR) is 1.6 today. Please have your INR repeated in 4- 5 days to ensure stability. Please ask your coumadin provider to check this for you. Resume your coumadin schedule as previous. 5. Follow-up with your liver specialist at [facility] in the next few weeks. 6. Follow-up appointments - * see Dr. Garrett on 03/31/17 at 1020am * see Dr. Finnegan or [facility] in the next 2-3 weeks * see Dr. Garland, infectious disease, as scheduled 7. Return to [facility] if - * you run fevers over 100.4 degrees * you have worsening back pain not responding to your pain medication * you develop significant weakness, numbness, or pain of one or both legs * you develop incontinence of bowel or bladder * you develop swelling of the arm where your PICC line is * you develop redness, warmth, etc of the arm where your PICC line is 8. Please START magnesium oxide 400mg once daily to keep your magnesium level normal while taking diuretics (lasix/furosemide). You can take this every day with your potassium supplement. Current Hospital Diet Patient's current hospital diet: Diabetes Type 2 Diet, AHA Diet (Heart Healthy) Discharge Diet Recommended Diet: AHA Diet (Heart Healthy), Diabetes Type 2 Diet Fluid Restriction: 1800 ml (7 cups) Procedures Procedures Performed: Liver ultrasound Pending Studies Studies pending at discharge: no Laboratory Results Hemoglobin A1c Test 03/18/17 02:59 Range/Units Estimated Average Glucose 143 mg/dl Hemoglobin A1c 6.6 H 4.5-5.6 % Lipid Panel Test 01/24/17 08:19 Range/Units Triglycerides Level 55 0-150 mg/dl Cholesterol Level 157 0-200 mg/dl HDL Cholesterol 43 mg/dl Cholesterol/HDL Ratio 3.7 LDL Cholesterol, Calculated 103 mg/dl Medical Emergencies . Who to Call and When: Medical Emergencies: If at any time you feel your situation is an emergency, please call 911 immediately. . Non-Emergent Contact Non-Emergency issues call your: Primary Care Provider, Surgeon (Dr. Castillo's office) Call Non-Emergent contact if: temperature is above 100.5, your pain is not controlled, your pain is worsening, your pain is unusual for you, your pain is concerning you, you have any medication questions . . "Provider Documentation" section prepared by Dirk Ferro. . VTE Core Measure Inpt VTE Proph given/why not?: Warfarin (Coumadin), Other Anticoagulation
== END 2017-03-24 14:27 | disposition home health service (06) | DRG 540 ==
LOC: EDBD 09:26 → C.EDC 09:28 → C.MED 12:05 → ENRESERV 12:29 → C.MED 03-22 00:59
PROVIDERS: ADMIT Family Medicine; ATTEND Internal Medicine
PROC: 05HB33Z Insertion of Infusion Device into Right Basilic Vein, Percutaneous Approach (ICD-10-PCS; principal; 2017-03-23)
DX: M46.27 Osteomyelitis of vertebra, lumbosacral region (principal); I50.32 Chronic diastolic (congestive) heart failure; Z68.42 Body mass index [BMI] 45.0-49.9, adult; M46.47 Discitis, unspecified, lumbosacral region; B95.8 Unspecified staphylococcus as the cause of diseases classified elsewhere; M48.061 Spinal stenosis, lumbar region without neurogenic claudication; S32.010A Wedge compression fracture of first lumbar vertebra, initial encounter for closed fracture; S32.020A Wedge compression fracture of second lumbar vertebra, initial encounter for closed fracture; R07.9 Chest pain, unspecified; K75.81 Nonalcoholic steatohepatitis (NASH); I48.91 Unspecified atrial fibrillation; E11.9 Type 2 diabetes mellitus without complications; I11.0 Hypertensive heart disease with heart failure; F32.9 Major depressive disorder, single episode, unspecified; D64.9 Anemia, unspecified; I25.10 Atherosclerotic heart disease of native coronary artery without angina pectoris; E78.5 Hyperlipidemia, unspecified; F12.90 Cannabis use, unspecified, uncomplicated; E66.9 Obesity, unspecified; Z98.1 Arthrodesis status; Z95.1 Presence of aortocoronary bypass graft; Z87.891 Personal history of nicotine dependence; Z79.01 Long term (current) use of anticoagulants; Z79.2 Long term (current) use of antibiotics; Z79.4 Long term (current) use of insulin; Z79.82 Long term (current) use of aspirin; Z79.899 Other long term (current) drug therapy; Z82.3 Family history of stroke

== ENCOUNTER → 2017-04-05 | Outpatient (CLI) | payer OTHER, BC ==
[~2017-04-05] MED LIST changes: -CLOP1TAB15 PO; +DAPT500I IV; +DAPT500I PO; +DULO60CA44 PO; +FLM4 PO; +INS/25 PO; -LIDO2SOL17 EXT; -LISI-461 PO; +LISI10TA PO; -LORA-741 PO; +MAGN400T6 PO; -MAGNESIUM PO; +MGNO400 PO; +NITR0.4S UT; -NITRSPR6 SL; +OMEGCAP2 PO; +RIFA200T2 PO; +RXC5 PO; +WARF5TAB90 PO; +WLLSR100 PO
[2017-04-05 18:01] LABS: HEMATOCRIT 38.7 % (42-52); MEAN CELL VOLUME 75.9 fL (80-100); MEAN CORPUSCULAR HEMOGLOBIN 25.9 pg (25-34); MEAN CORPUSCULAR HGB CONC 34.1 g/dl (32-36); PLATELET COUNT 153 K/uL (130-400)
[2017-04-05 18:34] LABS: AST/SGOT 79 U/L (15-37); POTASSIUM 3.8 mmol/L (3.5-5.1)
[2017-04-05 18:36] LABS: ALB/GLOB RATIO 0.4 (0.9-2); ALKALINE PHOSPHATASE 312 U/L (45-117); ALT/SGPT 45 U/L (12-78); BLOOD UREA NITROGEN 7 mg/dl (7-18); BUN/CREATININE RATIO 6.8 (10-20); CALCIUM 8.5 mg/dl (8.5-10.1); CARBON DIOXIDE 28 mmol/L (21-32); CHLORIDE 109 mmol/L (98-107); CREATININE 1.01 mg/dl (0.60-1.40); GLUCOSE 159 mg/dl (70-99); SODIUM 141 mmol/L (136-145)
--- NOTE | 2017-04-11 07:56 | CODING QUERY NO DIAGNOSIS ---
Valid Physician Order Needed A valid physician order must be submitted in order to properly bill for the service(s) provided, including date of service(s), valid diagnosis, and physician signature. If these tests are done on a recurring basis the original physican order must be submitted in order to code and bill for the service(s) provided. Please fax us the original, signed physician order so that we may expedite billing to [phone] DOS 04/05/17 * CMP * CREATINE PHOSPHOKINASE * C- REACTIVE PROTEIN * CBC W/O DIFF * PT/INR * ERYTHROCYTE SEDIMENTATION RATE Thank you Lesia [facility] Information Management
== END | disposition home or self-care (01) ==
LOC: C.LABSPEC 11:00
PROVIDERS: ATTEND Orthopaedic Surgery Orthopaedic Surgery of the Spine
DX: M46.46 Discitis, unspecified, lumbar region (principal); M46.26 Osteomyelitis of vertebra, lumbar region; Z45.2 Encounter for adjustment and management of vascular access device; E11.9 Type 2 diabetes mellitus without complications; I48.91 Unspecified atrial fibrillation

== ENCOUNTER → 2017-04-09 | Outpatient (CLI) | payer BC, OTHER ==
[2017-04-09 17:24] LABS: INR 1.7 (0.9-1.1); PROTHROMBIN TIME (PATIENT) 18.5 SECONDS (9.0-12.0)
--- NOTE | 2017-04-14 14:03 | CODING QUERY NO DIAGNOSIS ---
Valid Physician Order Needed A valid physician order must be submitted in order to properly bill for the service(s) provided, including date of service(s), valid diagnosis, and physician signature. If these tests are done on a recurring basis the original physician order must be submitted in order to code and bill for the service(s) provided. Please fax us the original, signed physician order so that we may expedite billing to [phone] DOS 04/09 * PTINR Thank you [facility] Information [facility]
== END | disposition home or self-care (01) ==
LOC: C.LABSPEC 11:13
PROVIDERS: ATTEND Orthopaedic Surgery Orthopaedic Surgery of the Spine
DX: Z01.89 Encounter for other specified special examinations (principal)

== ENCOUNTER → 2017-04-27 | Outpatient (CLI) | payer OTHER ==
[~2017-04-27] MED LIST changes: -DAPT500I PO; -DULO60CA44 PO; -EPLE25TA3 PO; -LSN10 PO; -MGNO400 PO; -OMEG10007 PO; -POTA20TA16 PO; -RIFA550T2 PO; -RXC5 PO; -TAMS0.4C38 PO; -WARF2TAB8 PO; -WARF5TAB7 PO
== END | disposition home or self-care (01) ==
LOC: C.LABSPEC 11:37
PROVIDERS: ATTEND Neuromusculoskeletal Medicine & OMM
DX: R35.0 Frequency of micturition (principal)

== ENCOUNTER → 2017-04-27 | Outpatient (CLI) | payer OTHER, BC ==
[~2017-04-27] MED LIST changes: -FOLI1TAB7 PO; +FOLI1TAB8 PO
[2017-04-27 13:12] LABS: MEAN CORPUSCULAR HGB CONC 33.5 g/dl (32-36)
[2017-04-27 13:36] LABS: ALBUMIN 2.5 gm/dl (3.4-5.0); ALT/SGPT 64 U/L (12-78); BLOOD UREA NITROGEN 6 mg/dl (7-18); CALCIUM 8.7 mg/dl (8.5-10.1); CARBON DIOXIDE 24 mmol/L (21-32); CREATININE 0.81 mg/dl (0.60-1.40); GLUCOSE 231 mg/dl (70-99); POTASSIUM 3.3 mmol/L (3.5-5.1); SODIUM 138 mmol/L (136-145)
[2017-04-27 13:39] LABS: ALKALINE PHOSPHATASE 354 U/L (45-117); AST/SGOT 80 U/L (15-37); TOTAL PROTEIN 7.6 gm/dl (6.4-8.2)
[2017-04-27 13:52] LABS: HEMATOCRIT 36.7 % (42-52); HEMOGLOBIN 12.3 g/dL (14.0-18.0); MEAN CELL VOLUME 75.5 fL (80-100); MEAN CORPUSCULAR HEMOGLOBIN 25.3 pg (25-34); RED CELL DISTRIBUTION WIDTH SD 43.6 fL (36.4-46.3); WHITE BLOOD COUNT 4.37 K/uL (4.8-10.8)
[2017-04-27 14:13] LABS: PLATELET COUNT 132 K/uL (130-400)
--- NOTE | 2017-05-16 09:43 | CODING QUERY NO DIAGNOSIS ---
Valid Physician Order Needed A valid physician order must be submitted in order to properly bill for the service(s) provided, including date of service(s), valid diagnosis, and physician signature. If these tests are done on a recurring basis the original physican order must be submitted in order to code and bill for the service(s) provided. Please fax us the original, signed physician order so that we may expedite billing to [phone] DOS 04/27/17 * CMP * CBC W/O DIFF * ERYTHROCYTE SEDIMENTATION RATE * CREATINE PHOSPHOKINASE * C-REACTIVE PROTEIN Thank you [facility] Information Management
== END | disposition home or self-care (01) ==
LOC: C.LABSPEC 13:01
PROVIDERS: ATTEND Internal Medicine Infectious Disease
DX: M46.46 Discitis, unspecified, lumbar region (principal); M46.28 Osteomyelitis of vertebra, sacral and sacrococcygeal region; Z45.2 Encounter for adjustment and management of vascular access device; E11.9 Type 2 diabetes mellitus without complications; I48.91 Unspecified atrial fibrillation

== ENCOUNTER → 2017-05-03 | Outpatient (CLI) | payer BC, OTHER ==
[2017-05-03 09:59] LABS: MEAN CORPUSCULAR HGB CONC 33.2 g/dl (32-36)
[2017-05-03 10:04] LABS: INR 2.7 (0.9-1.1); PROTHROMBIN TIME (PATIENT) 29.7 SECONDS (9.0-12.0)
[2017-05-03 10:07] LABS: ALT/SGPT 61 U/L (12-78); BLOOD UREA NITROGEN 9 mg/dl (7-18); BUN/CREATININE RATIO 14.3 (10-20); C-REACTIVE PROTEIN 0.78 mg/dl (0-0.29); CALCIUM 8.9 mg/dl (8.5-10.1); CARBON DIOXIDE 27 mmol/L (21-32); CHLORIDE 108 mmol/L (98-107); CREATININE 0.66 mg/dl (0.60-1.40); GLUCOSE 94 mg/dl (70-99); POTASSIUM 3.6 mmol/L (3.5-5.1); SODIUM 142 mmol/L (136-145)
[2017-05-03 10:10] LABS: ALB/GLOB RATIO 0.5 (0.9-2); ALKALINE PHOSPHATASE 299 U/L (45-117); AST/SGOT 76 U/L (15-37)
[2017-05-03 10:31] LABS: HEMATOCRIT 36.7 % (42-52); MEAN CORPUSCULAR HEMOGLOBIN 25.3 pg (25-34); RED BLOOD COUNT 4.83 M/uL (4.7-6.1); WHITE BLOOD COUNT 3.58 K/uL (4.8-10.8)
[2017-05-03 10:47] LABS: PLATELET COUNT 114 K/uL (130-400)
[2017-05-03 11:52] LABS: COMPLETE YES; EOSINOPHIL % 1.8 %; LYMPH ABS # 1.15 K/uL (1.2-3.4); LYMPHOCYTE % 32.1 %; NEUTROPHILS % 43.7 %; VARIANT LYM ABS # 0.58 K/uL; VARIANT LYMPHOCYTE % 16.1 %
== END | disposition home or self-care (01) ==
LOC: C.LABSPEC 09:31
PROVIDERS: ATTEND Internal Medicine Infectious Disease
DX: I48.0 Paroxysmal atrial fibrillation (principal); M86.9 Osteomyelitis, unspecified

== ENCOUNTER → 2017-05-04 | Day surgery (SDC) | payer BC, OTHER ==
[2017-04-20 13:20] VITALS: BMI 40.0
[~2017-05-04] VITALS: Ht 177.8 cm; Wt 127.7 kg
[~2017-05-04] MED LIST changes: +FENTANYL CITRATE INJ 50 MCG/1 ML 2 ML VIAL ONE; +FOLI1TAB7 PO; -FOLI1TAB8 PO; +LIDOCAINE HCL 2% 2 ML VIAL (20MG/ML) ONE; +PROPOFOL IV EMULSION 10 MG/ML 20 ML VIAL IV ONE; +SODIUM CHLORIDE 0.9% 500ML 500 ML IV ONE
[2017-05-04 11:22] VITALS: Ht 177.8 cm; Wt 127.7 kg
--- NOTE | 2017-05-04 11:42 | Endo History and Physical ---
History & Physical Date of Service: May 04, 2017. Chief Complaint: EGD/COLON-PREOP EVAL FOR LIVER TRANSPLANT Referring Physician: DR SHELL History of Present Illness 66 yo male who presents for EGD secondary to esophageal varices and screening colonoscopy. Past Medical History Atrial Fibrillation, Diabetes, Arthritis, Male Genitourinary Prob., Anxiety, Reflux, Cancer, High Cholesterol, Sleep Apnea, CABG, Heart Disease, Hypertension , Thyroid Disease, Kidney Disease, Liver Disease, Depression Past Surgical History Hx Cardiac Surgery: Yes (2->CABG x 2 AND CLOSURE OF FORAMEN [place], HEART CATH X 4) Hx Internal Defibrillator: No Hx Pacemaker: No Hx Abdominal Surgery: No Hx Post-Op Nausea and Vomiting: Yes (PROJECTILE VOMITTING WITH 1 KNEE SURGERY) Hx Cancer Surgery: No Hx Thoracic Surgery: Yes (LUMBAR DECOMPRESSION FUSION 2015/LUMBAR D/F REVISION , I&D SPINE HEMATOMA) Hx Orthopedic: Yes (TOTAL 4 RT KNEE SURGERIES (PATELLA)) Hx Urinary Tract Surgery: Yes (VASECTOMY, CIRCUMCISION) Family History Polyp Social History Smoking Status: Former Smoker Hx Substance Use: No (marijuana ) Hx Alcohol Use: No Allergies Coded Allergies: Simvastatin (Verified Adverse Reaction, Intermediate, GI UPSET- OK WITH LIPITOR, 04/20/17) Spironolactone (Verified Adverse Reaction, Mild, NIPPLES HURT, 04/20/17) Pioglitazone (Verified Adverse Reaction, Unknown, DOESN'T REMEMBER, ) Current Medications Reported Home Medications Medications Dose Route/Sig Max Daily Dose Days Date Category Dose Instructions Daptomycin 500 Mg Inj 1 Dose IV DAILY 04/20/17 Reported TX FOR 6 WEEKS FOR SPINAL INFECTION Tamsulosin HCl 0.4 Mg Cap 1 Cap PO HS 04/20/17 Reported Xifaxan (Rifaximin) 200 Mg Tab 200 Mg PO BID 04/20/17 Reported Protonix (Pantoprazole Sodium) 40 Mg Tab 40 Mg PO QAM 04/20/17 Reported Nitrostat (Nitroglycerin) 0.4 Mg Sub 0.4 Mg UT PRN 04/20/17 Reported Multivitamin (Multivitamins) Tab 1 Tab PO QAM 04/20/17 Reported Lopressor (Metoprolol Tartrate) 50 Mg Tab 50 Mg PO TID 04/20/17 Reported Mag-Ox (Magnesium Oxide) 400 Mg Tab 400 Mg PO DAILY AFTERNOON 04/20/17 Reported Prinivil (Lisinopril) 10 Mg Tab 10 Mg PO QAM 04/20/17 Reported Chronulac (Lactulose) 10 Gm/15 Ml Syrp 1 Dose PO TID 04/20/17 Reported Imdur Ext Rel (Isosorbide Mononitrate) 120 Mg Ertab 120 Mg PO QAM 04/20/17 Reported Lantus (Insulin Glargine) 100 Unit/Ml Inj 10 Units SC HS 04/20/17 Reported Lasix (Furosemide) 40 Mg Tab 40 Mg PO QAM 04/20/17 Reported Folvite (Folic Acid) 1 Mg Tab 1 Mg PO DAILY AFTERNOON 04/20/17 Reported Fish Oil ([place]-3 Fatty Acids) 1 Cap Cap 1 Cap PO BID 04/20/17 Reported Zetia (Ezetimibe) 10 Mg Tab 10 Mg PO QAM 04/20/17 Reported Inspra (Eplerenone) 25 Mg Tab 1 Tab PO QAM 04/20/17 Reported Avodart (Dutasteride) 0.5 Mg Cap 0.5 Mg PO HS 04/20/17 Reported Cymbalta (Duloxetine HCl) 30 Mg Cap 1 Cap PO QAM 04/20/17 Reported Coumadin (Warfarin Sodium) 5 Mg Tab 10 Mg PO [id number] 04/20/17 Reported Coumadin (Warfarin Sodium) 5 Mg Tab 7.5 Mg PO [id number] 04/20/17 Reported Bupropion HCl Sr (Bupropion HCl) 100 Mg Tabcr 100 Mg PO QAM 03/17/17 Reported Tiazac (Diltiazem HCl) 180 Mg Capcr 180 Mg PO QAM 11/06/15 Reported Aspirin Chewable (Aspirin) 81 Mg Chew 81 Mg PO QAM 11/06/15 Reported Vital Signs Weight (Kilograms): 127.73 Height (Feet): 5 Height (Inches): 10 Date Time Temp Pulse Resp B/P (MAP) Pulse Ox O2 Delivery O2 Flow Rate FiO2 05/04/17 11:30 36.4 77 18 159/88 (111) 95 Room Air Physical Exam General Appearance: WD/WN, no apparent distress Respiratory/Chest: Auscultation: breath sounds normal Cardiovascular: Heart Auscultation: RRR Abdomen: Bowel Sounds: normal Inspection & Palpation: soft, non-distended, no tenderness, guarding & rebound Assessment and Plan Assessment: 66 yo male who presents for EGD secondary to esophageal varices and screening colonoscopy. Plan: Proceed with colonoscopy.
--- NOTE | 2017-05-04 12:26 | GI REPORT ---
Procedure Date: 05/04/2017 11:17 AM Procedure: Upper GI endoscopy Indications: Follow-up of esophageal varices Medicines: Monitored Anesthesia Care Complications: No immediate complications. Estimated Blood Loss: Estimated blood loss: none. Procedure: Pre-Anesthesia Assessment: - Prior to the procedure, a History and Physical was performed, and patient medications and allergies were reviewed. The patient's tolerance of previous anesthesia was also reviewed. The risks and benefits of the procedure and the sedation options and risks were discussed with the patient. All questions were answered, and informed consent was obtained. Prior Anticoagulants: The patient last took aspirin 1 day and Coumadin (warfarin) 3 days prior to the procedure. ASA Grade Assessment: III - A patient with severe systemic disease. After reviewing the risks and benefits, the patient was deemed in satisfactory condition to undergo the procedure. After obtaining informed consent, the endoscope was passed under direct vision. Throughout the procedure, the patient's blood pressure, pulse, and oxygen saturations were monitored continuously. The scope was introduced through the mouth, and advanced to the second part of duodenum. The upper GI endoscopy was accomplished without difficulty. The patient tolerated the procedure well. Findings: Grade I varices were found in the lower third of the esophagus. They were 5 mm in largest diameter. A small hiatus hernia was present. The examined duodenum was normal. Impression: - Grade I esophageal varices. - Small hiatus hernia. - Normal examined duodenum. - No specimens collected. Recommendation: - Resume previous diet. - Continue present medications. - Return to referring physician as previously scheduled. Luis Villa DO 05/04/2017 12:25:19 PM This report has been signed electronically. Note Initiated On: 05/04/2017 11:17 AM I attest to the content of the Intraoperative Record and orders documented therein, exceptions below
--- NOTE | 2017-05-04 12:29 | GI REPORT ---
Procedure Date: 05/04/2017 11:19 AM Procedure: Colonoscopy Indications: Screening for colorectal malignant neoplasm Medicines: Monitored Anesthesia Care Complications: No immediate complications. Estimated Blood Loss: Estimated blood loss: none. Procedure: Pre-Anesthesia Assessment: - Prior to the procedure, a History and Physical was performed, and patient medications and allergies were reviewed. The patient's tolerance of previous anesthesia was also reviewed. The risks and benefits of the procedure and the sedation options and risks were discussed with the patient. All questions were answered, and informed consent was obtained. Prior Anticoagulants: The patient last took aspirin 1 day and Coumadin (warfarin) 3 days prior to the procedure. ASA Grade Assessment: III - A patient with severe systemic disease. After reviewing the risks and benefits, the patient was deemed in satisfactory condition to undergo the procedure. After I obtained informed consent, the scope was passed under direct vision. Throughout the procedure, the patient's blood pressure, pulse, and oxygen saturations were monitored continuously. The scope was introduced through the anus and advanced to the terminal ileum. The colonoscopy was performed without difficulty. The patient tolerated the procedure well. The quality of the bowel preparation was good. The terminal ileum, the ileocecal valve and the rectum were photographed. Findings: The perianal and digital rectal examinations were normal. Two sessile polyps were found in the rectum and in the ascending colon. The polyps were 4 to 6 mm in size. These polyps were removed with a hot snare. Resection and retrieval were complete. Non-bleeding internal hemorrhoids were found during retroflexion. The hemorrhoids were small. Impression: - Two 4 to 6 mm polyps in the rectum and in the ascending colon, removed with a hot snare. Resected and retrieved. - Non-bleeding internal hemorrhoids. Recommendation: - Resume previous diet. - Continue present medications. - Repeat colonoscopy for surveillance based on pathology results. - Return to referring physician as previously scheduled. Luis Villa, 05/04/2017 12:28:35 PM This report has been signed electronically. Note Initiated On: 05/04/2017 11:19 AM I attest to the content of the Intraoperative Record and orders documented therein, exceptions below
--- NOTE | 2017-05-04 12:46 | Anesthesiology Progress Note ---
Anesthesia Post Op Note Date & Time May 04, 2017 at 12:46 Vital Signs Pain Intensity: 0 Vital Signs Past 12 Hours Date Time Temp Pulse Resp B/P (MAP) Pulse Ox O2 Delivery O2 Flow Rate FiO2 05/04/17 12:43 59 20 147/82 (103) 94 Room Air 05/04/17 12:27 82 16 151/72 (98) 98 Room Air 05/04/17 11:30 36.4 77 18 159/88 (111) 95 Room Air Notes Mental Status: alert / awake / arousable, participated in evaluation Pt Amnestic to Procedure: Yes Nausea / Vomiting: adequately controlled Pain: adequately controlled Airway Patency, RR, SpO2: stable & adequate BP & HR: stable & adequate Hydration State: stable & adequate Anesthetic Complications: no major complications apparent
[2017-05-04 12:58] VITALS: BP 164/85; PULSE 50; O2SAT 94
--- NOTE | 2017-05-04 13:33 | Discharge Instructions ---
Endoscopy Patient Instructions Date / Procedure(s) Performed May 04, 2017. Colonoscopy, EGD Allergy Information Coded Allergies: Simvastatin (Verified Adverse Reaction, Intermediate, GI UPSET- OK WITH LIPITOR, 04/20/17) Spironolactone (Verified Adverse Reaction, Mild, NIPPLES HURT, 04/20/17) Pioglitazone (Verified Adverse Reaction, Unknown, DOESN'T REMEMBER, ) Discharge Date / Findings May 04, 2017. EGD: Grade I esophageal varices, Hiatal hernia Colonoscopy: Colon polyps, Internal hemorrhoids Medication Instructions Stopped Medication(s): COUMADIN OK to resume all medications today as prescribed Reported Home Medications Medications Dose Route/Sig Max Daily Dose Days Date Category Dose Instructions Daptomycin 500 Mg Inj 1 Dose IV DAILY 04/20/17 Reported TX FOR 6 WEEKS FOR SPINAL INFECTION Tamsulosin HCl 0.4 Mg Cap 1 Cap PO HS 04/20/17 Reported Xifaxan (Rifaximin) 200 Mg Tab 200 Mg PO BID 04/20/17 Reported Protonix (Pantoprazole Sodium) 40 Mg Tab 40 Mg PO QAM 04/20/17 Reported Nitrostat (Nitroglycerin) 0.4 Mg Sub 0.4 Mg UT PRN 04/20/17 Reported Multivitamin (Multivitamins) Tab 1 Tab PO QAM 04/20/17 Reported Lopressor (Metoprolol Tartrate) 50 Mg Tab 50 Mg PO TID 04/20/17 Reported Mag-Ox (Magnesium Oxide) 400 Mg Tab 400 Mg PO DAILY AFTERNOON 04/20/17 Reported Prinivil (Lisinopril) 10 Mg Tab 10 Mg PO QAM 04/20/17 Reported Chronulac (Lactulose) 10 Gm/15 Ml Syrp 1 Dose PO TID 04/20/17 Reported Imdur Ext Rel (Isosorbide Mononitrate) 120 Mg Ertab 120 Mg PO QAM 04/20/17 Reported Lantus (Insulin Glargine) 100 Unit/Ml Inj 10 Units SC HS 04/20/17 Reported Lasix (Furosemide) 40 Mg Tab 40 Mg PO QAM 04/20/17 Reported Folvite (Folic Acid) 1 Mg Tab 1 Mg PO DAILY AFTERNOON 04/20/17 Reported Fish Oil (Kouts-3 Fatty Acids) 1 Cap Cap 1 Cap PO BID 04/20/17 Reported Zetia (Ezetimibe) 10 Mg Tab 10 Mg PO QAM 04/20/17 Reported Inspra (Eplerenone) 25 Mg Tab 1 Tab PO QAM 04/20/17 Reported Avodart (Dutasteride) 0.5 Mg Cap 0.5 Mg PO HS 04/20/17 Reported Cymbalta (Duloxetine HCl) 30 Mg Cap 1 Cap PO QAM 04/20/17 Reported Coumadin (Warfarin Sodium) 5 Mg Tab 10 Mg PO 4XWK 04/20/17 Reported Coumadin (Warfarin Sodium) 5 Mg Tab 7.5 Mg PO 3XWK 04/20/17 Reported Bupropion HCl Sr (Bupropion HCl) 100 Mg Tabcr 100 Mg PO QAM 03/17/17 Reported Tiazac (Diltiazem HCl) 180 Mg Capcr 180 Mg PO QAM 11/06/15 Reported Aspirin Chewable (Aspirin) 81 Mg Chew 81 Mg PO QAM 11/06/15 Reported Provider Instructions Activity Restrictions - No exercising or heavy lifting for 24 hours. - Do not drink alcohol the day of the procedure. - Do not drive a car or operate machinery until the day after the procedure. - Do not make any important decisions or sign important papers in 24 hours after the procedure. Following Day: - Return to full activity which may include returning to work/school. Diet Start your diet with liquids and light foods (jello, soup, juice, toast). Then eat your usual diet if not nauseated. Treatment For Common After Affects For mild abdominal pain, bloating, or excessive gas: - Rest - Eat lightly - Lie on right side Follow-Up Information Follow-up with DR SHELL as scheduled Anesthesia Information What You Should Know You have had a procedure that required some medicine to reduce anxiety and discomfort. This treatment is called moderate sedation. After receiving the treatment, you may be sleepy, but you will be able to breathe on your own. The effects of the treatment may last for several hours. Follow these instructions along with Activity/Diet recommendations noted above: * Do NOT do anything where dizziness or clumsiness would be dangerous. * Rest quietly at home today, then you can be up and about tomorrow. * Have a responsible person stay with you the rest of today. * You may have had an I.V. today. If so, you may take the dressing off later today. Recommendations Call your doctor if: * Trouble breathing * Continuous vomiting for more than 24 hours * Temperature above 101 degrees * Severe abdominal pain or bloating * Pain not relieved by pain medicine ordered * There is increased drainage or redness from any incision * A large amount of rectal bleeding greater than 2-3 tablespoons. (If you had a polyp/s removed or have hemorrhoids, a small amount of blood - from the rectum is to be expected.) * You have any unanswered questions or concerns. IN THE EVENT OF A SERIOUS EMERGENCY, GO TO THE NEAREST EMERGENCY ROOM Your discharge instructions were prepared by provider Luis Villa. Patient Instructions Signature Page Chivo Herring Patient (or Guardian) Signature/Date: I have read and understand the instructions given to me by my caregivers. Caregiver/RN/Doctor Signature/Date: The above-named patient and/or guardian has received patient instructions on this date. + Original Patient Signature Page (only) stays with chart. Please make copy for patient.
== END | disposition home or self-care (01) ==
LOC: C.GI 11:03
PROVIDERS: ATTEND Internal Medicine
DX: Z12.11 Encounter for screening for malignant neoplasm of colon (principal); D12.2 Benign neoplasm of ascending colon; K62.1 Rectal polyp; I85.00 Esophageal varices without bleeding; K44.9 Diaphragmatic hernia without obstruction or gangrene; E11.9 Type 2 diabetes mellitus without complications; G47.33 Obstructive sleep apnea (adult) (pediatric); F41.9 Anxiety disorder, unspecified; E78.00 Pure hypercholesterolemia, unspecified; I10 Essential (primary) hypertension; F32.9 Major depressive disorder, single episode, unspecified; Z87.891 Personal history of nicotine dependence

== ENCOUNTER → 2017-05-10 | Outpatient (CLI) | payer BC, OTHER ==
[~2017-05-10] MED LIST changes: -FENTANYL CITRATE INJ 50 MCG/1 ML 2 ML VIAL ONE; -LIDOCAINE HCL 2% 2 ML VIAL (20MG/ML) ONE; -PROPOFOL IV EMULSION 10 MG/ML 20 ML VIAL IV ONE; -SODIUM CHLORIDE 0.9% 500ML 500 ML IV ONE
[2017-05-10 17:07] LABS: ALT/SGPT 75 U/L (12-78); AST/SGOT 87 U/L (15-37); BLOOD UREA NITROGEN 4 mg/dl (7-18); BUN/CREATININE RATIO 6.3 (10-20); CALCIUM 8.2 mg/dl (8.5-10.1); CARBON DIOXIDE 30 mmol/L (21-32); CHLORIDE 106 mmol/L (98-107); CREATININE 0.68 mg/dl (0.60-1.40); GLUCOSE 60 mg/dl (70-99); POTASSIUM 3.2 mmol/L (3.5-5.1); SODIUM 140 mmol/L (136-145)
[2017-05-10 17:10] LABS: ALB/GLOB RATIO 0.5 (0.9-2); ALKALINE PHOSPHATASE 331 U/L (45-117)
[2017-05-10 17:11] LABS: PLATELET COUNT 118 K/uL (130-400); WHITE BLOOD COUNT 3.51 K/uL (4.8-10.8)
[2017-05-10 19:11] LABS: COMPLETE YES; PLT ESTIMATE DECREASED
[2017-05-10 20:18] LABS: BASO % 0.3 %; EOS % 2.3 %; HEMATOCRIT 37.5 % (42-52); IG% 0.3 %; LYMPH % 48.7 %; LYMPH ABS # 1.71 K/uL (1.2-3.4); MEAN CELL VOLUME 75.2 fL (80-100); MEAN CORPUSCULAR HEMOGLOBIN 24.8 pg (25-34); MEAN CORPUSCULAR HGB CONC 33.1 g/dl (32-36); MONO % 10.8 %; NEUT % 37.6 %; RED BLOOD COUNT 4.99 M/uL (4.7-6.1)
[2017-05-10 20:19] LABS: BASO ABS # 0.01 K/uL (0-0.2)
== END | disposition home or self-care (01) ==
LOC: C.LABSPEC 16:31
PROVIDERS: ATTEND Internal Medicine Infectious Disease
DX: M86.9 Osteomyelitis, unspecified (principal)

== ENCOUNTER → 2017-06-14 | Outpatient (CLI) | payer OTHER ==
[~2017-06-14] MED LIST changes: -FOLI1TAB7 PO; +FOLI1TAB8 PO; -LACT10SO17 PO; +LACT10SO3 PO; +ONDA8TAB62 SL; +PROP20TA67 PO; +RXC5 PO
[2017-06-14 14:44] LABS: INR 1.3 (0.9-1.1)
== END | disposition home or self-care (01) ==
LOC: C.LAB 13:42
PROVIDERS: ATTEND Nurse Practitioner Adult Health
DX: I48.0 Paroxysmal atrial fibrillation (principal)

== ENCOUNTER → 2017-07-04 | Outpatient (CLI) | payer BC, OTHER ==
[~2017-07-04] MED LIST changes: +LACT10SO17 PO; -LACT10SO3 PO; -ONDA8TAB62 SL; -PROP20TA67 PO; -RXC5 PO
--- NOTE | 2017-07-04 15:01 | DIAGNOSTIC IMAGING REPORT ---
(CHEST) THORAX WITHOUT CT DOSE: 1171.01 mGy.cm CLINICAL HISTORY: 66 years-old Male with PULMONARY NODULE. Pulmonary nodule follow-up TECHNIQUE: Multiaxial CT images of the chest were performed without contrast. A dose lowering technique was utilized adhering to the principles of ALARA. COMPARISON: CT of the chest 07/01/2016, CT abdomen and pelvis 08/29/2007. FINDINGS: Ill-defined heterogeneous nodule of the right thyroid measures 1.3 x 1.0 cm. No pathologically enlarged lymph nodes about the chest identified. Moderate cardiomegaly with coronary arterial disease evidence of prior CABG. Prior median sternotomy. Since of [place] coronary arterial disease. Moderate atherosclerosis of the aorta. Main pulmonary artery is dilated, 3.5 cm suggesting possible pulmonary arterial hypertension. There is no pneumothorax or pleural effusion. Minimal linear subsegmental consolidative opacities are present bilaterally, notably within the lung bases suggesting areas of scarring/atelectasis. The previously noted 2 mm solid nodule of the left upper lobe near the apex is not definitively seen on today's study. A 5 mm solid nodule of the inferior segment lingula seen on image 200 series 4 is unchanged dating back to at least 3 T2 thousand and 8 compatible with benign etiology. No new or enlarging pulmonary nodules are identified. Central airways are patent. Cholelithiasis. Large cyst of the posterior interpolar left kidney measures 7.2 cm. Indeterminate 8 mm hyperattenuating focus involving the superior pole right kidney suggests possible proteinaceous or hemorrhagic cyst. Ill-defined low attenuating lesion involving the dome of the liver is again seen measuring 2.5 cm. Cirrhotic morphology of the liver. Soft tissues are unremarkable. Multilevel degenerative changes of the spine. Multiple Schmorl's nodes seen within the imaged lumbar spine. IMPRESSION: 1. Previously noted 3 mm solid nodule of the left lung apex is no longer identified. The solid 5 mm nodule of the inferior segment lingula is unchanged dating back to at least 08/29/2007 compatible with benign etiology. No new or enlarging pulmonary nodules identified. 2. Cardiomegaly with prior median sternotomy and CABG. 3. Cholelithiasis. 4. Cirrhotic liver disease. 5. Additional findings as above. Electronically signed by: Kelechi Clark M.D. 07/04/2017 2:59 PM Dictated Date/Time: 07/04/2017 2:48 PM
== END | disposition home or self-care (01) ==
LOC: C.CTS 14:30
PROVIDERS: ATTEND Neuromusculoskeletal Medicine & OMM
DX: R91.1 Solitary pulmonary nodule (principal); I51.7 Cardiomegaly

== ENCOUNTER → 2017-07-29 | Outpatient (CLI) | payer OTHER ==
[2017-07-29 12:26] LABS: INR 2.4 (0.9-1.1)
== END | disposition home or self-care (01) ==
LOC: C.LAB 10:32
PROVIDERS: ATTEND Internal Medicine Cardiovascular Disease
DX: E11.9 Type 2 diabetes mellitus without complications (principal); Z79.4 Long term (current) use of insulin; N40.1 Benign prostatic hyperplasia with lower urinary tract symptoms; N13.9 Obstructive and reflux uropathy, unspecified; E78.00 Pure hypercholesterolemia, unspecified; I48.0 Paroxysmal atrial fibrillation

== ENCOUNTER 2017-08-30 09:56 | Inpatient (IN) | payer BC, OTHER ==
[~2017-08-30] VITALS: Ht 177.8 cm; Wt 128.2 kg
[~2017-08-30 09:56] MED LIST changes: -ONDA8TAB62 SL; -PROP20TA67 PO; -RXC5 PO
[2017-08-30 12:40] VITALS: BP 152/84; PULSE 53; TEMP 36.8; O2SAT 97; Ht 177.8 cm; Wt 128.2 kg
[2017-08-30] MEDS ORDERED: ACETAMINOPHEN 325 MG TAB PO PRN (13:00)
[2017-08-30] MEDS ORDERED: MAGNESIUM HYDROXIDE SUSP 30 ML UDC PO PRN (13:00)
[2017-08-30] MEDS ORDERED: ALUMINUM/MAGNESIUM/SIMETH (MAALOX MAX) 30 ML UDC PO PRN (13:00)
[2017-08-30] MEDS ORDERED: ONDANSETRON INJ 2 MG/ML 2 ML VIAL IV PRN (13:00)
[2017-08-30] MEDS ORDERED: WARFARIN SOD 7.5 MG TAB PO SCH (13:00)
[2017-08-30] MEDS ORDERED: WARFARIN SOD 10 MG TAB PO SCH (13:00)
[2017-08-30] MEDS ORDERED: POLYETHYLENE (MIRALAX) 17 GM PACK PO PRN (13:45)
[2017-08-30] MEDS ORDERED: GLUCOSE 10 TABS/TUBE PO PRN (13:45)
[2017-08-30] MEDS ORDERED: DEXTROSE 50% 50 ML SYR IV PRN (13:45)
[2017-08-30] MEDS ORDERED: GLUCOSE 40% GEL 15 GM TUBE PO PRN (13:45)
[2017-08-30] MEDS ORDERED: GLUCAGON FOR INJ 1 MG VIAL SQ PRN (13:45)
[2017-08-30] MEDS ORDERED: VANCOMYCIN CONSULT ACTIVE PRN (13:45)
[2017-08-30] MEDS: METOPROLOL TARTRATE 50 MG TAB PO SCH ×2 (14:00→21:00)
[2017-08-30] MEDS: EPLERENONE~ORDER AWAITING ACTION SCH ×3 (14:00→23:28)
[2017-08-30] MEDS ORDERED: LACTULOSE SYRUP 20 GM/30 ML UDC PO ONE (14:00)
[2017-08-30] MEDS: AVODART~ORDER AWAITING ACTION SCH ×3 (14:00→23:27)
[2017-08-30 14:11] LABS: MEAN CORPUSCULAR HGB CONC 33.6 g/dl (32-36)
[2017-08-30 14:25] LABS: HEMATOCRIT 39.9 % (42-52); HEMOGLOBIN 13.4 g/dL (14.0-18.0); MEAN CELL VOLUME 75.3 fL (80-100); MEAN CORPUSCULAR HEMOGLOBIN 25.3 pg (25-34); RED CELL DISTRIBUTION WIDTH CV 16.7 % (11.5-14.5); RED CELL DISTRIBUTION WIDTH SD 45.6 fL (36.4-46.3); WHITE BLOOD COUNT 3.79 K/uL (4.8-10.8)
[2017-08-30 14:31] LABS: CREATININE 0.82 mg/dl (0.60-1.40); POTASSIUM 2.9 mmol/L (3.5-5.1)
[2017-08-30 14:33] LABS: TOTAL PROTEIN 7.9 gm/dl (6.4-8.2)
--- NOTE | 2017-08-30 14:40 | Progress Note ---
Progress Note Date of Service Aug 30, 2017. Progress Note ID Consult Dictated #[id number] A/P: 1. 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
--- NOTE | 2017-08-30 14:44 | INFECT. DISEASE CONSULTATION ---
DATE OF CONSULTATION: 08/30/2017 HISTORY OF PRESENT ILLNESS: This is a 66-year-old gentleman who was directly admitted by myself earlier in the day secondary to compression fracture found on CT. The patient does have a history of recurrent spinal hardware infection and subsequent bacteremia with coagulase negative staph, most recently in March/April of 2017. He was initially followed by orthopedic surgery but has not had any orthopedic followup for some months. He did present to the infectious diseases' office on Tuesday afternoon for an acute visit with new onset of back pain. He denied any trauma to the area. He denied any wound dehiscence. He had no associated fevers or chills. He was previously treated with intravenous daptomycin for several weeks and then was transitioned to suppressive oral doxycycline which he remains. He has not had any issue with his doxycycline antibiotics. He denied any trauma to his back but had worsening acute onset of back pain. He had no numbness or tingling in the lower extremity. He had no difficulty with ambulation. He had no loss of bowel or bladder function. It was suggested that he come to the hospital on Tuesday; however, he preferred to have an outpatient CAT scan and this was performed yesterday. Results of this were reviewed this morning and the patient was subsequently called with results. Findings showed a new compression fracture at the area of L2 and increased radiolucency and hardware loosening at the area of his previous spinal hardware. He continues to deny any fevers or chills. I did discuss this with the patient and his and it was recommended that he come into the hospital to have orthopedic evaluation potentially further imaging with MRI and also blood cultures were additional workup for infectious etiology. On my exam, the patient is eating lunch. He states his pain is a 2/10. He continues to deny any radiation of pain into the lower extremities. He continues to ambulate without difficulty. He denies any nausea, vomiting, diarrhea. He was started on empiric broad spectrum antibiotics and blood cultures were ordered. His lab studies are pending this morning. His remaining review of systems is unremarkable. PAST MEDICAL AND SURGICAL HISTORY: Significant for history of aFib, type 2 diabetes, arthritis, anxiety, GERD, high cholesterol, sleep apnea, history of CABG, coronary artery disease, hypertension, thyroid disease, depression and multiple orthopedic spinal surgeries. He has also had knee surgeries, vasectomy, and EGD. FAMILY HISTORY: Noncontributory. SOCIAL HISTORY: Significant for history of tobacco use. He denies any alcohol or drug use. ALLERGIES: HE HAS ALLERGIES TO SIMVASTATIN, SPIRONOLACTONE, AND PIOGLITAZONE. CURRENT MEDICATIONS: Include aspirin, Wellbutrin, diltiazem, Cymbalta, Zetia, folic acid, Lasix, Imdur, Zestril, multivitamins, Protonix, Lantus, lactulose, magnesium, rifaximin, Flomax, Lopressor, cefepime, dapto, MiraLax, Coumadin, Tylenol, Maalox, milk of magnesia and Zofran. PHYSICAL EXAMINATION: VITAL SIGNS: He is afebrile, pulse 53, respiratory rate 16, blood pressure 152/84, oxygen saturation is 97% on room air. GENERAL: He is awake, alert and oriented x3. He is in no acute distress. HEENT: Mucous membranes are moist. Extraocular muscles are intact. HEART: Regular. LUNGS: Clear. ABDOMEN: Soft. EXTREMITIES: There is no lower extremity edema. There is no wound dehiscence. There is no lumbar tenderness. LABORATORY DATA: Pending. Blood cultures are pending. IMAGING: As above. ASSESSMENT AND PLAN: A compression fracture with history of infected spinal hardware. He will remain on broad spectrum antibiotics. Blood cultures will be obtained. Orthopedic evaluation is pending. We will follow along with you. Thank you for this consultation.
--- NOTE | 2017-08-30 15:02 | History and Physical ---
History & Physical Date & Time of Service: Aug 30, 2017 at 14:55 Chief Complaint: Back Hardward Infection Primary Care Physician: Wayne Florez D.O. History of Present Illness 66-year-old male sent in from Dr. Ho's office as a direct admission for concern of progression of a hardware infection in his lumbar spine. 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 This patient is a challenges following up with his spine surgeon and Dr. Garland is been managing him for the most part. The patient did speak with Dr. Garland stating that his lumbar spine pain and worsen of late he has not had any numbness or tingling to his legs or problems with bowel or bladder function however this prompted a CT scan which was performed on the day of admission and there was some consideration of loosening of hardware and/or progression of infection. The patient will be brought to our facility for resuming intravenous antibiotics and orthopedic spine surgery opinion regarding the imaging studies of his back. Otherwise the patient has been in good condition for his multiple medical problems most optimistic of it however was that his concerning liver mass was deemed to be a nonmalignant lesion by [facility] in May 2017 and although he has chronic liver failure requiring medications to modulate his ammonia level he has been in pretty good condition since that time Past Medical/Surgical History Medical Problems: (1) Abnormal EKG (2) Anemia (3) Atrial flutter (4) back hardware infection (7) Diabetes (8) H/O: Two cardiac bypasses (9) Headache (10) HTN (hypertension) (12) Hyperlipidemia (13) Hypertensive emergency (18) Osteomyelitis (19) Postoperative wound infection (20) Sepsis due to coagulase-negative staphylococcal infection BPH DEPRESSION CHRONIC LIVER DISEASE Family History Stroke FATHER MOTHER Social History Smoking Status: Former Smoker Drug Use: marijuana Marital Status: Housing status: lives with family Occupational Status: disabled Immunizations History of Influenza Vaccine: Yes Influenza Vaccine Date: May 17, 2013 History of Tetanus Vaccine?: utd History of Pneumococcal: Yes Pneumococcal Date: May 17, 2013 History of Hepatitis B Vaccine: Unknown Allergies Coded Allergies: Simvastatin (Verified Adverse Reaction, Intermediate, GI UPSET- OK WITH LIPITOR, 04/20/17) Spironolactone (Verified Adverse Reaction, Mild, NIPPLES HURT, 04/20/17) Pioglitazone (Verified Adverse Reaction, Unknown, DOESN'T REMEMBER, ) Home Medications Scheduled Aspirin (Aspirin Chewable), 81 MG PO QAM Bupropion HCl (Bupropion HCl Sr), 100 MG PO QAM Daptomycin (Daptomycin), 1 DOSE IV DAILY Diltiazem Hcl Ext Rel (Tiazac), 180 MG PO QAM Duloxetine HCl (Cymbalta), 1 CAP PO QAM Dutasteride (Avodart), 0.5 MG PO HS Eplerenone (Inspra), 1 TAB PO QAM Ezetimibe (Zetia), 10 MG PO QAM Folic Acid (Folvite), 1 MG PO DAILY AFTERNOON Furosemide (Lasix), 40 MG PO QAM Insulin Glargine (Lantus), 10 UNITS SC HS Isosorbide Mononitrate Ext Rel (Imdur Ext Rel), 120 MG PO QAM Lactulose (Chronulac), 1 DOSE PO TID Lisinopril (Prinivil), 10 MG PO QAM Magnesium Oxide (Mag-Ox), 400 MG PO DAILY AFTERNOON Metoprolol Tartrate (Lopressor) (Lopressor), 50 MG PO TID Multivitamin (Multivitamin), 1 TAB PO QAM Nitroglycerin (Nitrostat), 0.4 MG UT PRN [place]-3 Fatty Acids (Fish Oil), 1 CAP PO BID Pantoprazole (Protonix), 40 MG PO QAM Rifaximin (Xifaxan), 200 MG PO BID Tamsulosin HCl (Tamsulosin HCl), 1 CAP PO HS Warfarin Sodium (Coumadin), 7.5 MG PO 3XWK Warfarin Sodium (Coumadin), 10 MG PO 4XWK Physical Exam Vital Signs Date Time Temp Pulse Resp B/P (MAP) Pulse Ox O2 Delivery O2 Flow Rate FiO2 08/30/17 12:40 36.8 53 16 152/84 97 Room Air General Appearance: WD/WN, + mild distress Head: normocephalic, atraumatic Eyes: normal inspection, PERRL, EOMI, sclerae normal ENT: hearing grossly normal, pharynx normal Neck: supple, no JVD Respiratory/Chest: chest non-tender, lungs clear, normal breath sounds Cardiovascular: regular rate, rhythm, no murmur Abdomen/GI: normal bowel sounds, non tender, soft Back: normal inspection, no CVA tenderness, no muscle spasm, + pertinent finding (Minor tenderness to the lumbar spine with decreased range of motion due to pain) Extremities/Musculoskelatal: no pedal edema, normal range of motion Neurologic/Psych: alert, oriented x 3 Skin: normal color, warm/dry, no rash Diagnostics Laboratory Results Results Past 24 Hours Test 08/30/17 13:23 08/30/17 13:52 08/30/17 13:59 Range/Units Bedside Glucose 52 131 70-99 mg/dl White Blood Count 3.79 4.8-10.8 K/uL Red Blood Count 5.30 4.7-6.1 M/uL Hemoglobin 13.4 14.0-18.0 g/dL Hematocrit 39.9 42-52 % Mean Corpuscular Volume 75.3 80-100 fL Mean Corpuscular Hemoglobin 25.3 25-34 pg Mean Corpuscular Hemoglobin Concent 33.6 32-36 g/dl RDW Standard Deviation 45.6 36.4-46.3 fL RDW Coefficient of Variation 16.7 11.5-14.5 % Prothrombin Time 40.5 9.0-12.0 SECONDS Prothromb Time International Ratio 4.0 0.9-1.1 Sodium Level 140 136-145 mmol/L Potassium Level 2.9 3.5-5.1 mmol/L Chloride Level 105 98-107 mmol/L Carbon Dioxide Level 31 21-32 mmol/L Anion Gap 5.0 3-11 mmol/L Blood Urea Nitrogen 5 7-18 mg/dl Creatinine 0.82 0.60-1.40 mg/dl Est Creatinine Clear Calc Drug Dose 122.4 ml/min Estimated GFR () 108.3 Estimated GFR (Non- 93.5 BUN/Creatinine Ratio 5.7 10-20 Random Glucose 72 70-99 mg/dl Calcium Level 9.0 8.5-10.1 mg/dl Total Bilirubin 0.7 0.2-1 mg/dl Aspartate Amino Transf (AST/SGOT) 106 15-37 U/L Alanine Aminotransferase (ALT/SGPT) 80 12-78 U/L Alkaline Phosphatase 299 45-117 U/L Total Protein 7.9 6.4-8.2 gm/dl Albumin 3.0 3.4-5.0 gm/dl Globulin 4.9 2.5-4.0 gm/dl Albumin/Globulin Ratio 0.6 0.9-2 Microbiology Results 08/30/17 Blood Culture, Received Pending 08/30/17 Blood Culture, Received Pending Diagnostic Radiology Lumbar spine CT IMPRESSION: 1. Interval extension of the posterior lumbar fusion, which now spans from L3 to S1 with interbody spacer at L4-5. 2. Significant radiolucency surrounding the bilateral S1 transpedicular screws, which is concerning for loosening or infection. 3. Significant interval progression of degenerative change with varying degrees of neural foraminal narrowing most severe at L2-3 and L5-S1 bilaterally. 4. Interval development of a compression fracture deformity of L2 and less pronounced at L1 in the setting of osteopenia. This is new since prior CT in 2014 and prior radiographs in 2016. Bony edema suggesting acuity would be better demonstrated on MR. Impression Assessment and Plan 66-year-old male with chronic lumbar spine hardware spine infection, recent change in pain quality and concern for changes on imaging Infectious disease vancomycin cefepime will be continued with blood cultures. No current consideration of other distant site infection Lumbar spine compression fracture and possible loosening of hardware, Dr. Finnegan will see the patient in consultation and the patient will have oxycodone for pain control there is no neurological deficits at this time Diabetes patient is on Lantus 10 at bedtime with sliding scale coverage diabetic diet Cardiac disease/hypertension patient will be maintained on aspirin and diltiazem Zetia Lasix isosorbide mononitrate Prinivil metoprolol and due to his A. fib flutter anticoagulated with Coumadin 7.5 Tuesday 10 mg all other days BPHtamsulosin and Avodart will be continued Depression is maintained by Wellbutrin and Cymbalta Chronic liver failure suspected from fatty liver disease the patient maintained on Xifaxan and lactulose without any signs of encephalopathy at this time DVT prevention is with Coumadin Advanced Directives Existing Living Will: No Existing Power of Tube Inspector: No Resuscitation Status VTE Prophylaxis Will order VTE Prophylaxis: Yes
[2017-08-30 15:05] LABS: PLATELET COUNT 129 K/uL (130-400)
[2017-08-30 15:21] VITALS: BP 144/78; PULSE 41; TEMP 36.5; O2SAT 96
[2017-08-30] MEDS: CEFEPIME IV 2,000 MG in SYRINGE 7.5 ML IV SCH ×2 (15:25→22:25)
[2017-08-30] MEDS: DAPTOmycin IV 750 MG in SYRINGE 0 ML IV SCH (15:26)
[2017-08-30] MEDS: POTASSIUM CHLORIDE 20 MEQ TABCR PO SCH (16:43)
[2017-08-30] MEDS: INSULIN ASPART 100 UNITS/ML 3 ML PEN SC SCH ×2 (17:15→21:00)
[2017-08-30] MEDS: INSULIN GLARGINE SOLOSTAR 100 UNITS/ML 3 ML PEN SC SCH (21:10)
[2017-08-30] MEDS: TAMSULOSIN HCL 0.4 MG CAP PO SCH (21:13)
[2017-08-30] MEDS: LACTULOSE SYRUP 20 GM/30 ML UDC PO SCH (21:13)
[2017-08-30] MEDS: MAGNESIUM OXIDE 400 MG TAB PO SCH (21:13)
[2017-08-30] MEDS: RIFAXIMIN TAB 200 MG TAB PO SCH (21:14)
[2017-08-30 22:17] VITALS: BP 153/73; PULSE 50; TEMP 36.7; O2SAT 98
[2017-08-30] MEDS: OXYCODONE HCL IR 5 MG TAB (IMMEDIATE RELEASE) PO PRN (22:25)
[2017-08-31] MEDS: CEFEPIME IV 2,000 MG in SYRINGE 7.5 ML IV SCH ×3 (05:45→21:27)
[2017-08-31 06:03] LABS: MEAN CORPUSCULAR HGB CONC 33.2 g/dl (32-36)
[2017-08-31 06:11] LABS: HEMATOCRIT 35.5 % (42-52); HEMOGLOBIN 11.8 g/dL (14.0-18.0); MEAN CELL VOLUME 74.7 fL (80-100); MEAN CORPUSCULAR HEMOGLOBIN 24.8 pg (25-34); RED CELL DISTRIBUTION WIDTH CV 16.5 % (11.5-14.5); RED CELL DISTRIBUTION WIDTH SD 45.1 fL (36.4-46.3); WHITE BLOOD COUNT 3.16 K/uL (4.8-10.8)
[2017-08-31 06:14] LABS: INR 4.1 (0.9-1.1)
[2017-08-31 06:41] LABS: CALCIUM 8.1 mg/dl (8.5-10.1); CREATININE 0.75 mg/dl (0.60-1.40); POTASSIUM 3.4 mmol/L (3.5-5.1)
[2017-08-31 06:47] LABS: PLATELET COUNT 93 K/uL (130-400)
[2017-08-31 07:34] VITALS: BP 146/74; PULSE 46; TEMP 36.3; O2SAT 97
[2017-08-31] MEDS ORDERED: MAGNESIUM SULFATE 1GM / D5W 1 GM in PREMIXED IN D5W 100 ML IV ONE (07:45)
[2017-08-31] MEDS: INSULIN ASPART 100 UNITS/ML 3 ML PEN SC SCH ×4 (08:00→21:26)
[2017-08-31] MEDS: EPLERENONE~ORDER AWAITING ACTION SCH (08:00)
[2017-08-31] MEDS: AVODART~ORDER AWAITING ACTION SCH (08:00)
[2017-08-31] MEDS: LACTULOSE SYRUP 20 GM/30 ML UDC PO SCH ×3 (08:30→20:19)
[2017-08-31] MEDS: RIFAXIMIN TAB 200 MG TAB PO SCH ×2 (08:31→20:19)
[2017-08-31] MEDS: EZETIMIBE 10MG TAB PO SCH (08:31)
[2017-08-31] MEDS: METOPROLOL TARTRATE 50 MG TAB PO SCH ×3 (08:31→20:20)
[2017-08-31] MEDS: DULOXETINE (CYMBALTA) 30 MG CAP PO SCH (08:31)
[2017-08-31] MEDS: PANTOprazole SOD 40 MG TAB PO SCH (08:32)
[2017-08-31] MEDS: ASPIRIN 81 MG ECTAB PO SCH (08:32)
[2017-08-31] MEDS: MULTIVITAMIN TAB PO SCH (08:32)
[2017-08-31] MEDS: FUROSEMIDE 40 MG TAB PO SCH (08:32)
[2017-08-31] MEDS: ISOSORBIDE MONONITRATE 60 MG TABCR PO SCH (08:33)
[2017-08-31] MEDS: LISINOPRIL 10 MG TAB PO SCH (08:33)
[2017-08-31] MEDS: BuPROPion SR 100 MG TABCR PO SCH (08:33)
[2017-08-31] MEDS: POTASSIUM CHLORIDE 20 MEQ TABCR PO SCH ×4 (08:34→20:20)
[2017-08-31] MEDS: MAGNESIUM OXIDE 400 MG TAB PO SCH ×2 (08:34→20:20)
[2017-08-31] MEDS: DILTIAZEM HCL (TIAzac) 180 MG CAPCR PO SCH (08:34)
[2017-08-31] MEDS ORDERED: DUTASTERIDE 0.5MG PO SCH ×2 (12:00→21:00)
[2017-08-31] MEDS: EPLERENONE 25 MG TAB PO SCH (12:22)
[2017-08-31] MEDS: OXYCODONE HCL IR 5 MG TAB (IMMEDIATE RELEASE) PO PRN ×2 (12:28→22:08)
[2017-08-31 12:42] VITALS: PULSE 54
[2017-08-31] MEDS ORDERED: NURSING VERBAL MED ORDER ONE (12:45)
--- NOTE | 2017-08-31 13:04 | Orthopedic Consultation ---
Orthopedic Consultation Date of Consultation: Aug 31, 2017. Attending Physician: Siddhartha Jenkins M.D. Reason for Consultation: Back pain History of Present Illness This is a 66-year-old male status post lumbar decompression fusion with subsequent I&D secondary to infection. He has been managed by infectious disease and admitted to the hospital with an increase in back pain. He states the symptoms began approximately 3-4 weeks ago. He denies any specific trauma fall or event. It has become more and more limiting nature. Describes his pain as a 6-7 out of 10. It is in the thoracolumbar spine. There is some radiation into the right buttock and occasional leg pain with prolonged standing and walking. Past Medical/Surgical History Medical Problems: (1) Constricting chest pain often radiating down left upper extremity Status: Acute (2) Lumbar back pain Status: Acute (3) Osteomyelitis Status: Acute Family History Stroke FATHER MOTHER Social History Smoking Status: Former Smoker Drug Use: marijuana Marital Status: Occupation Status: disabled Allergies Coded Allergies: Simvastatin (Verified Adverse Reaction, Intermediate, GI UPSET- OK WITH LIPITOR, 04/20/17) Spironolactone (Verified Adverse Reaction, Mild, NIPPLES HURT, 04/20/17) Pioglitazone (Verified Adverse Reaction, Unknown, DOESN'T REMEMBER, ) Home Medications Scheduled Aspirin (Aspirin Chewable), 81 MG PO QAM Bupropion HCl (Bupropion HCl Sr), 100 MG PO QAM Daptomycin (Daptomycin), 1 DOSE IV DAILY Diltiazem Hcl Ext Rel (Tiazac), 180 MG PO QAM Duloxetine HCl (Cymbalta), 1 CAP PO QAM Dutasteride (Avodart), 0.5 MG PO HS Eplerenone (Inspra), 1 TAB PO QAM Ezetimibe (Zetia), 10 MG PO QAM Folic Acid (Folvite), 1 MG PO DAILY AFTERNOON Furosemide (Lasix), 40 MG PO QAM Insulin Glargine (Lantus), 10 UNITS SC HS Isosorbide Mononitrate Ext Rel (Imdur Ext Rel), 120 MG PO QAM Lactulose (Chronulac), 1 DOSE PO TID Lisinopril (Prinivil), 10 MG PO QAM Magnesium Oxide (Mag-Ox), 400 MG PO DAILY AFTERNOON Metoprolol Tartrate (Lopressor) (Lopressor), 50 MG PO TID Multivitamin (Multivitamin), 1 TAB PO QAM Nitroglycerin (Nitrostat), 0.4 MG UT PRN [place]-3 Fatty Acids (Fish Oil), 1 CAP PO BID Pantoprazole (Protonix), 40 MG PO QAM Rifaximin (Xifaxan), 200 MG PO BID Tamsulosin HCl (Tamsulosin HCl), 1 CAP PO HS Warfarin Sodium (Coumadin), 7.5 MG PO 3XWK Warfarin Sodium (Coumadin), 10 MG PO 4XWK Current Inpatient Medications Current Inpatient Medications Medications (Trade) Dose Ordered Sig/Beata Route Start Time Stop Time Status Last Admin Dose Admin Aspirin (Ecotrin Tab) 81 mg QAM PO 08/31/17 09:00 09/30/17 08:59 08/31/17 08:32 81 MG Bupropion HCl (Wellbutrin-Sr Tab) 100 mg QAM PO 08/31/17 09:00 09/30/17 08:59 08/31/17 08:33 100 MG Diltiazem HCl (TIAzac CAP) 180 mg QAM PO 08/31/17 09:00 09/30/17 08:59 08/31/17 08:34 180 MG Duloxetine HCl (Cymbalta Cap) 30 mg QAM PO 08/31/17 09:00 09/30/17 08:59 08/31/17 08:31 30 MG EZETIMIBE (Zetia Tab) 10 mg QAM PO 08/31/17 09:00 09/30/17 08:59 08/31/17 08:31 10 MG Folic Acid (Folvite Tab) 1 mg DAILY PO 08/31/17 09:00 09/30/17 08:59 08/31/17 08:35 1 MG Furosemide (Lasix Tab) 40 mg QAM PO 08/31/17 09:00 09/30/17 08:59 08/31/17 08:32 40 MG Insulin Glargine (Lantus Solostar Pen) 10 units HS SC 08/30/17 21:00 09/29/17 20:59 08/30/17 21:10 10 UNITS Isosorbide Mononitrate (Imdur Ext Rel Tab) 120 mg QAM PO 08/31/17 09:00 09/30/17 08:59 08/31/17 08:33 120 MG Lactulose (Chronulac Syrup) 10 gm TID PO 08/30/17 21:00 09/29/17 20:59 08/31/17 08:30 10 GM Lisinopril (Zestril Tab) 10 mg QAM PO 08/31/17 09:00 09/30/17 08:59 08/31/17 08:33 10 MG Magnesium Oxide (Mag-Ox Tab) 400 mg BID PO 08/30/17 21:00 09/29/17 20:59 08/31/17 08:34 400 MG Metoprolol Tartrate (Lopressor Tab) 50 mg TID PO 08/30/17 14:00 09/29/17 13:59 Multivitamins (Multivitamin Tab) 1 tab QAM PO 08/31/17 09:00 09/30/17 08:59 08/31/17 08:32 1 TAB Pantoprazole Sodium (Protonix Tab) 40 mg QAM PO 08/31/17 09:00 09/30/17 08:59 08/31/17 08:32 40 MG Rifaximin (Xifaxan Tab) 200 mg BID PO 08/30/17 21:00 09/29/17 20:59 08/31/17 08:31 200 MG Tamsulosin HCl (Flomax Cap) 0.4 mg HS PO 08/30/17 21:00 09/29/17 20:59 08/30/17 21:13 0.4 MG Cefepime HCl 2000 mg/Syringe 20 ml @ 5 mls/min Q8H IV 08/30/17 14:00 10/11/17 13:59 08/31/17 05:45 5 MLS/MIN Acetaminophen (Tylenol Tab) 650 mg Q4H PRN PO 08/30/17 13:00 09/29/17 12:59 Al Hydrox/Mg Hydrox/Simethicone (Maalox Max Susp) 15 ml Q4H PRN PO 08/30/17 13:00 09/29/17 12:59 Magnesium Hydroxide (Milk Of Magnesia Susp) 30 ml Q6H PRN PO 08/30/17 13:00 09/29/17 12:59 Polyethylene (Miralax Powder Packet) 17 gm DAILY PRN PO 08/30/17 13:45 09/29/17 13:44 Ondansetron HCl (Zofran Inj) 4 mg Q6H PRN IV 08/30/17 13:00 09/29/17 12:59 Daptomycin 750 mg/ Syringe 15 ml @ 7.5 mls/min Q24H IV 08/30/17 14:00 10/11/17 13:59 08/30/17 15:26 7.5 MLS/MIN Glucose (Glucose 40% Gel) 15-30 GRAMS 15 GRAMS... UD PRN PO 08/30/17 13:45 09/29/17 13:44 Glucose (Glucose Chew Tab) 4-8 Tablets 4 Tabl... UD PRN PO 08/30/17 13:45 09/29/17 13:44 Dextrose (Dextrose 50% 50ML Syringe) 25-50ML OF 50% DW IV FOR... UD PRN IV 08/30/17 13:45 09/29/17 13:44 Glucagon (Glucagon Inj) 1 mg UD PRN SQ 08/30/17 13:45 09/29/17 13:44 Oxycodone HCl (Roxicodone Immediate Rel Tab) 10 mg Q6 PRN PO 08/30/17 15:15 09/13/17 15:14 08/31/17 12:28 10 MG Warfarin Sodium (Coumadin Tab) 7.5 mg DAILY@1600 PO 08/31/17 16:00 09/30/17 15:59 Potassium Chloride (Klor-Con Tab) 20 meq BID17 PO 08/30/17 17:00 08/31/17 17:01 08/31/17 08:34 20 MEQ Insulin Aspart (novoLOG ASPART) SLIDING SCALE PARAMETER ACHS SC 08/30/17 17:15 09/29/17 17:14 08/31/17 12:19 1 UNITS Potassium Chloride (Klor-Con Tab) 20 meq BID PO 08/31/17 09:00 09/01/17 09:01 08/31/17 08:44 20 MEQ Epleronone (Eplerenone) 25 mg QAM PO 08/31/17 12:00 09/30/17 11:59 08/31/17 12:22 25 MG Dutasteride (Avodart) 0.5 mg HS PO 08/31/17 21:00 09/30/17 20:59 Lorazepam (Ativan Tab) 1 mg UD STAT PO 08/31/17 12:55 08/31/17 12:56 UNV Physical Exam Date Time Temp Pulse Resp B/P (MAP) Pulse Ox O2 Delivery O2 Flow Rate FiO2 08/31/17 12:42 54 08/31/17 09:32 Room Air 08/31/17 07:55 Room Air 08/31/17 07:34 36.3 46 16 146/74 (98) 97 Room Air 08/30/17 23:40 Room Air 08/30/17 22:17 36.7 50 18 153/73 (99) 98 Room Air 08/30/17 15:30 Room Air 08/30/17 15:21 36.5 41 18 144/78 (100) 96 Room Air On physical exam he is able to sit up on the side of the bed. He has a negative logroll bilaterally. No tenderness to palpation of the greater trochanters. He exhibits a +5/5 bilateral plantar flexion dorsiflexion and extensor hallucis longus quadriceps. His lumbar incision is well-healed there is no erythema or drainage. There is nontender to palpation. Laboratory Results Last 24 Hours Test 08/30/17 13:23 08/30/17 13:52 08/30/17 13:59 08/30/17 17:01 Bedside Glucose 52 mg/dl 131 mg/dl 58 mg/dl White Blood Count 3.79 K/uL Red Blood Count 5.30 M/uL Hemoglobin 13.4 g/dL Hematocrit 39.9 % Mean Corpuscular Volume 75.3 fL Mean Corpuscular Hemoglobin 25.3 pg Mean Corpuscular Hemoglobin Concent 33.6 g/dl Platelet Count 129 K/uL RDW Standard Deviation 45.6 fL RDW Coefficient of Variation 16.7 % Neutrophils % (Manual) 40.5 % Lymphocytes % (Manual) 24.8 % Variant Lymphocytes % (manual) 24.8 % Monocytes % (Manual) 7.9 % Eosinophils % (Manual) 1.0 % Basophils % (Manual) 1.0 % Neutrophils # (Manual) 1.53 K/uL Total Absolute Neutrophils 1.53 K/uL Lymphocytes # (Manual) 0.94 K/uL Absolute Variant Lymphocytes 0.94 K/uL Total Absolute Lymphocytes 1.88 K/uL Monocytes # (Manual) 0.30 K/uL Eosinophils # (Manual) 0.04 K/uL Basophils # (Manual) 0.04 K/uL Giant Platelets 1+ Microcytosis PRESENT Target Cells 1+ Prothrombin Time 40.5 SECONDS Prothromb Time International Ratio 4.0 Sodium Level 140 mmol/L Potassium Level 2.9 mmol/L Chloride Level 105 mmol/L Carbon Dioxide Level 31 mmol/L Anion Gap 5.0 mmol/L Blood Urea Nitrogen 5 mg/dl Creatinine 0.82 mg/dl Est Creatinine Clear Calc Drug Dose 122.4 ml/min Estimated GFR () 108.3 Estimated GFR (Non- 93.5 BUN/Creatinine Ratio 5.7 Random Glucose 72 mg/dl Calcium Level 9.0 mg/dl Total Bilirubin 0.7 mg/dl Aspartate Amino Transf (AST/SGOT) 106 U/L Alanine Aminotransferase (ALT/SGPT) 80 U/L Alkaline Phosphatase 299 U/L Total Protein 7.9 gm/dl Albumin 3.0 gm/dl Globulin 4.9 gm/dl Albumin/Globulin Ratio 0.6 Test 08/30/17 17:15 08/30/17 20:35 08/31/17 05:11 Bedside Glucose 70 mg/dl 100 mg/dl White Blood Count 3.16 K/uL Red Blood Count 4.75 M/uL Hemoglobin 11.8 g/dL Hematocrit 35.5 % Mean Corpuscular Volume 74.7 fL Mean Corpuscular Hemoglobin 24.8 pg Mean Corpuscular Hemoglobin Concent 33.2 g/dl RDW Standard Deviation 45.1 fL RDW Coefficient of Variation 16.5 % Platelet Count 93 K/uL Platelet Estimate DECREASED Prothrombin Time 41.4 SECONDS Prothromb Time International Ratio 4.1 Sodium Level 142 mmol/L Potassium Level 3.4 mmol/L Chloride Level 106 mmol/L Carbon Dioxide Level 30 mmol/L Anion Gap 6.0 mmol/L Blood Urea Nitrogen 5 mg/dl Creatinine 0.75 mg/dl Est Creatinine Clear Calc Drug Dose 133.8 ml/min Estimated GFR () 112.4 Estimated GFR (Non- 96.9 BUN/Creatinine Ratio 7.3 Random Glucose 82 mg/dl Calcium Level 8.1 mg/dl Magnesium Level 1.7 mg/dl Assessment & Plan Chronic back pain we will rule out compression fracture versus recurrent infection. Plan at this time we will obtain an MRI of the lumbar spine to complement his recent CAT scan. I will make further recommendations upon review.
[2017-08-31] MEDS ORDERED: LORAZEPAM 1 MG TAB PO SCH (13:30)
[2017-08-31] MEDS: WARFARIN SOD 7.5 MG TAB PO SCH (13:55)
--- NOTE | 2017-08-31 13:56 | Progress Note ---
Subjective Date of Service: Aug 31, 2017. Subjective tolerating abx. no f/c. blood cultures pending. othro consult reviewed, for mri Problem List Medical Problems: (1) Constricting chest pain often radiating down left upper extremity Status: Acute (2) Lumbar back pain Status: Acute (3) Osteomyelitis Status: Acute Objective Vital Signs Date Time Temp Pulse Resp B/P (MAP) Pulse Ox O2 Delivery O2 Flow Rate FiO2 08/31/17 12:42 54 08/31/17 09:32 Room Air 08/31/17 07:55 Room Air 08/31/17 07:34 36.3 46 16 146/74 (98) 97 Room Air 08/30/17 23:40 Room Air 08/30/17 22:17 36.7 50 18 153/73 (99) 98 Room Air 08/30/17 15:30 Room Air 08/30/17 15:21 36.5 41 18 144/78 (100) 96 Room Air Laboratory Results Last 24 Hours Test 08/30/17 13:59 08/30/17 17:01 08/30/17 17:15 08/30/17 20:35 Bedside Glucose 131 mg/dl 58 mg/dl 70 mg/dl 100 mg/dl Test 08/31/17 05:11 08/31/17 08:13 08/31/17 11:51 White Blood Count 3.16 K/uL Red Blood Count 4.75 M/uL Hemoglobin 11.8 g/dL Hematocrit 35.5 % Mean Corpuscular Volume 74.7 fL Mean Corpuscular Hemoglobin 24.8 pg Mean Corpuscular Hemoglobin Concent 33.2 g/dl RDW Standard Deviation 45.1 fL RDW Coefficient of Variation 16.5 % Platelet Count 93 K/uL Platelet Estimate DECREASED Prothrombin Time 41.4 SECONDS Prothromb Time International Ratio 4.1 Sodium Level 142 mmol/L Potassium Level 3.4 mmol/L Chloride Level 106 mmol/L Carbon Dioxide Level 30 mmol/L Anion Gap 6.0 mmol/L Blood Urea Nitrogen 5 mg/dl Creatinine 0.75 mg/dl Est Creatinine Clear Calc Drug Dose 133.8 ml/min Estimated GFR () 112.4 Estimated GFR (Non- 96.9 BUN/Creatinine Ratio 7.3 Random Glucose 82 mg/dl Calcium Level 8.1 mg/dl Magnesium Level 1.7 mg/dl Bedside Glucose 131 mg/dl 172 mg/dl Assessment and Plan (1) Compression fracture Assessment & Plan: continue abx, follow cultures, mri findings
[2017-08-31] MEDS: DAPTOmycin IV 750 MG in SYRINGE 0 ML IV SCH (14:20)
--- NOTE | 2017-08-31 15:23 | DIAGNOSTIC IMAGING REPORT ---
MRI LUMBAR SPINE W/O CONTRAST CLINICAL HISTORY: acute back pain RIGHT LEG RADICULOPATHY. TECHNIQUE: Sagittal and axial T1, T2 and STIR images were obtained. COMPARISON STUDY: MRI the lumbar spine dated 03/10/2017 , CT scan dated 08/30/2017 OBSERVATIONS: There are postsurgical changes of an L4-5 discectomy and interbody fusion. There is posterior pedicle screw fixation extending from the L3 to the S1 levels. There is secondary artifact. There are old superior endplate L1 and L2 deformities. Marrow signal abnormalities involving the inferior L2 endplate are felt to be secondary to a chronic fracture and osteophytic spurs. L1-2: There is a mild circumferential disc bulge. There is no significant spinal or foraminal stenosis L2-3: There is a circumferential disc bulge with moderate spinal stenosis. There is mild bilateral foraminal narrowing L3-4: There are postsurgical changes of a posterior spinal decompression. There is no significant spinal or foraminal stenosis L4-5: Postsurgical changes are evident. There is no significant spinal or foraminal stenosis L5-S1: There is a small central disc protrusion. There is mild thecal sac deformity. There is mild bilateral foraminal narrowing. The conus medullaris and cauda equina appear normal. IMPRESSION: 1. Postsurgical changes as described above 2. L2-3 disc bulge with secondary moderate spinal stenosis. There is mild bilateral foraminal narrowing 3. Small central disc protrusion at the L5-S1 level with mild bilateral foraminal narrowing 4. Marrow signal abnormalities at the L2 level, secondary to chronic fragmentation and osteophyte formation. 5. Old superior endplate L1 compression deformity. Electronically signed by: Oscar Sheppard M.D. 08/31/2017 3:22 PM Dictated Date/Time: 08/31/2017 3:12 PM
[2017-08-31 15:46] VITALS: BP 130/66; PULSE 47; TEMP 36.6; O2SAT 94
--- NOTE | 2017-08-31 17:34 | Progress Note ---
Subjective Date of Service: Aug 31, 2017. Subjective Pt evaluation today including: conversation w/ patient, conversation w/ family , physical exam, chart review, lab review, review of studies, review of inpatient medication list back pain right now about a 2 no f/c/s wonders if hardware is infected, if needs surgery discussed to the best of my ability no other complaints no other problems Problem List Medical Problems: (1) Constricting chest pain often radiating down left upper extremity Status: Acute (2) Lumbar back pain Status: Acute (3) Osteomyelitis Status: Acute Review of Systems all other ROS otherwise negative except for as above Objective Vital Signs Date Time Temp Pulse Resp B/P (MAP) Pulse Ox O2 Delivery O2 Flow Rate FiO2 08/31/17 15:46 36.6 47 19 130/66 (87) 94 Room Air 08/31/17 12:42 54 08/31/17 09:32 Room Air 08/31/17 07:55 Room Air 08/31/17 07:34 36.3 46 16 146/74 (98) 97 Room Air 08/30/17 23:40 Room Air 08/30/17 22:17 36.7 50 18 153/73 (99) 98 Room Air Physical Exam General Appearance: no apparent distress Eyes: EOMI ENT: hearing grossly normal Neck: trachea midline Respiratory/Chest: no respiratory distress, no accessory muscle use Extremities: normal range of motion Neurologic/Psychiatric: guest services II-XII nml as tested, alert, normal mood/affect Skin: normal color, warm/dry Laboratory Results Last 24 Hours Test 08/30/17 20:35 08/31/17 05:11 08/31/17 08:13 08/31/17 11:51 Bedside Glucose 100 mg/dl 131 mg/dl 172 mg/dl White Blood Count 3.16 K/uL Red Blood Count 4.75 M/uL Hemoglobin 11.8 g/dL Hematocrit 35.5 % Mean Corpuscular Volume 74.7 fL Mean Corpuscular Hemoglobin 24.8 pg Mean Corpuscular Hemoglobin Concent 33.2 g/dl RDW Standard Deviation 45.1 fL RDW Coefficient of Variation 16.5 % Platelet Count 93 K/uL Platelet Estimate DECREASED Prothrombin Time 41.4 SECONDS Prothromb Time International Ratio 4.1 Sodium Level 142 mmol/L Potassium Level 3.4 mmol/L Chloride Level 106 mmol/L Carbon Dioxide Level 30 mmol/L Anion Gap 6.0 mmol/L Blood Urea Nitrogen 5 mg/dl Creatinine 0.75 mg/dl Est Creatinine Clear Calc Drug Dose 133.8 ml/min Estimated GFR () 112.4 Estimated GFR (Non- 96.9 BUN/Creatinine Ratio 7.3 Random Glucose 82 mg/dl Calcium Level 8.1 mg/dl Magnesium Level 1.7 mg/dl Test 08/31/17 16:58 Bedside Glucose 83 mg/dl Assessment and Plan 66-year-old male with chronic lumbar spine hardware spine infection, recent change in pain quality and concern for changes on imaging: chronic discitis - on suppressive doxy normally, for now with concern on ?new/ worse - escalated to vanco and cefepime per ID Lumbar spine compression fracture and possible loosening of hardware -seen by orthospine, MRI ordered, otherwise as above for now, consider osteoporosis risks Diabetes -sugars adequate continue current care Cardiac disease/hypertension -continue home meds, no sx, vitals reasonable ranges BPH -tamsulosin and Avodart Depression -Wellbutrin and Cymbalta Chronic liver failure suspected from fatty liver disease - continue Xifaxan and lactulose - no signs of encephalopathy at this time DVT prevention is with Coumadin, follow INR
[2017-08-31 20:17] VITALS: BP 157/84; PULSE 52
[2017-08-31] MEDS: TAMSULOSIN HCL 0.4 MG CAP PO SCH (20:20)
[2017-08-31] MEDS: INSULIN GLARGINE SOLOSTAR 100 UNITS/ML 3 ML PEN SC SCH (21:26)
[2017-08-31 22:43] VITALS: BP 149/71; PULSE 61; TEMP 36.6; O2SAT 98
[2017-09-01] MEDS: CEFEPIME IV 2,000 MG in SYRINGE 7.5 ML IV SCH ×3 (05:41→14:39)
[2017-09-01 06:04] LABS: MEAN CORPUSCULAR HGB CONC 33.2 g/dl (32-36)
[2017-09-01 06:24] LABS: HEMATOCRIT 36.7 % (42-52); HEMOGLOBIN 12.2 g/dL (14.0-18.0); MEAN CELL VOLUME 75.2 fL (80-100); RED CELL DISTRIBUTION WIDTH CV 16.6 % (11.5-14.5); RED CELL DISTRIBUTION WIDTH SD 45.1 fL (36.4-46.3); WHITE BLOOD COUNT 3.17 K/uL (4.8-10.8)
[2017-09-01 06:30] LABS: INR 2.7 (0.9-1.1)
[2017-09-01 06:41] LABS: CALCIUM 8.4 mg/dl (8.5-10.1); CREATININE 0.76 mg/dl (0.60-1.40); POTASSIUM 3.6 mmol/L (3.5-5.1)
[2017-09-01 06:46] LABS: PLATELET COUNT 93 K/uL (130-400)
[2017-09-01 07:46] VITALS: BP 183/93; PULSE 70; TEMP 36.4; O2SAT 96
[2017-09-01] MEDS: MAGNESIUM OXIDE 400 MG TAB PO SCH (08:40)
[2017-09-01] MEDS: BuPROPion SR 100 MG TABCR PO SCH (08:41)
[2017-09-01] MEDS: POTASSIUM CHLORIDE 20 MEQ TABCR PO SCH (08:41)
[2017-09-01] MEDS: FUROSEMIDE 40 MG TAB PO SCH (08:41)
[2017-09-01] MEDS: DILTIAZEM HCL (TIAzac) 180 MG CAPCR PO SCH (08:42)
[2017-09-01] MEDS: ASPIRIN 81 MG ECTAB PO SCH (08:42)
[2017-09-01] MEDS: LISINOPRIL 10 MG TAB PO SCH (08:42)
[2017-09-01] MEDS: METOPROLOL TARTRATE 50 MG TAB PO SCH (08:43)
[2017-09-01] MEDS: PANTOprazole SOD 40 MG TAB PO SCH (08:43)
[2017-09-01] MEDS: MULTIVITAMIN TAB PO SCH (08:43)
[2017-09-01] MEDS: RIFAXIMIN TAB 200 MG TAB PO SCH (08:43)
[2017-09-01] MEDS: ISOSORBIDE MONONITRATE 60 MG TABCR PO SCH (08:44)
[2017-09-01] MEDS: EZETIMIBE 10MG TAB PO SCH (08:44)
[2017-09-01] MEDS: DULOXETINE (CYMBALTA) 30 MG CAP PO SCH (08:44)
[2017-09-01] MEDS: LACTULOSE SYRUP 20 GM/30 ML UDC PO SCH ×2 (08:45→13:19)
[2017-09-01] MEDS: EPLERENONE 25 MG TAB PO SCH (08:46)
[2017-09-01] MEDS: INSULIN ASPART 100 UNITS/ML 3 ML PEN SC SCH ×2 (08:50→13:15)
[2017-09-01 10:11] VITALS: BP 150/80; PULSE 67; O2SAT 97
[2017-09-01] MEDS: DAPTOmycin IV 750 MG in SYRINGE 0 ML IV SCH ×2 (13:16→14:39)
[2017-09-01] MEDS: OXYCODONE HCL IR 5 MG TAB (IMMEDIATE RELEASE) PO PRN (13:17)
[2017-09-01 13:24] VITALS: BP 130/74; PULSE 54; O2SAT 96
[2017-09-01] MEDS ORDERED: PROPRANOLOL HCL 20 MG TAB PO SCH (14:00)
--- NOTE | 2017-09-01 14:03 | Progress Note ---
Progress Note Date of Service Sep 01, 2017. Progress Note I met with the patient today and his sister. We lengthy discussion regarding his progress and MRI findings. Fortunately I do not appreciate evidence of infection or epidural fluid collection on his updated scan. 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 This point is relatively stable. He should follow-up with Dr. Naylor in the next 2-4 weeks for follow-up.
--- NOTE | 2017-09-01 14:13 | Progress Note ---
Subjective Date of Service: Sep 01, 2017. Subjective afebrile, blood cultures negative, tolerating abx. on emperic dapto and cefepime pending culture. mri findings noted. no evidence of new osteomyelitis/ epidural collection, new infection. Problem List Medical Problems: (1) Constricting chest pain often radiating down left upper extremity Status: Acute (2) Lumbar back pain Status: Acute (3) Osteomyelitis Status: Acute Objective Vital Signs Date Time Temp Pulse Resp B/P (MAP) Pulse Ox O2 Delivery O2 Flow Rate FiO2 09/01/17 13:24 54 130/74 (92) 96 Room Air 09/01/17 10:11 67 20 150/80 (103) 97 Room Air 09/01/17 07:50 Room Air 09/01/17 07:46 36.4 70 20 183/93 (123) 96 Room Air 08/31/17 22:43 36.6 61 16 149/71 (97) 98 Room Air 08/31/17 20:17 52 157/84 (108) 08/31/17 20:10 Room Air 08/31/17 15:46 36.6 47 19 130/66 (87) 94 Room Air Laboratory Results Item Value Date Time Blood Culture - Preliminary Resulted 08/30/17 1352 Blood NO GROWTH TO DATE. Blood Culture - Preliminary Resulted 08/30/17 1358 Blood NO GROWTH TO DATE. Last 24 Hours Test 08/31/17 16:58 08/31/17 21:05 09/01/17 05:55 09/01/17 08:29 Bedside Glucose 83 mg/dl 134 mg/dl 91 mg/dl White Blood Count 3.17 K/uL Red Blood Count 4.88 M/uL Hemoglobin 12.2 g/dL Hematocrit 36.7 % Mean Corpuscular Volume 75.2 fL Mean Corpuscular Hemoglobin 25.0 pg Mean Corpuscular Hemoglobin Concent 33.2 g/dl RDW Standard Deviation 45.1 fL RDW Coefficient of Variation 16.6 % Platelet Count 93 K/uL Platelet Estimate DECREASED Prothrombin Time 27.4 SECONDS Prothromb Time International Ratio 2.7 Sodium Level 141 mmol/L Potassium Level 3.6 mmol/L Chloride Level 107 mmol/L Carbon Dioxide Level 30 mmol/L Anion Gap 4.0 mmol/L Blood Urea Nitrogen 5 mg/dl Creatinine 0.76 mg/dl Est Creatinine Clear Calc Drug Dose 132.1 ml/min Estimated GFR () 111.7 Estimated GFR (Non- 96.4 BUN/Creatinine Ratio 6.9 Random Glucose 107 mg/dl Calcium Level 8.4 mg/dl Test 09/01/17 12:14 Bedside Glucose 119 mg/dl Assessment and Plan (1) Compression fracture Assessment & Plan: no evidence for new infection, blood cultures negative to date. If remain negative tomorrow, will likely transition back to po doxy suppression. ortho recs noted.
[2017-09-01] MEDS ORDERED: PROP20TA67 PO (14:42)
[2017-09-01] MEDS ORDERED: RXC5 PO (14:42)
[2017-09-01] MEDS ORDERED: ONDA8TAB62 SL (14:42)
--- NOTE | 2017-09-01 14:49 | Discharge Instructions ---
Discharge Instructions Date of Service Sep 01, 2017. Admission Reason for Admission: Back Hardward Infection Discharge Discharge Diagnosis / Problem: back pain, fortunately no evidence of infected hardware Discharge Goals Goal(s): Diagnostic testing, Therapeutic intervention Activity Recommendations Activity Limitations: resume your previous activity . Instructions / Follow-Up Instructions / Follow-Up back pain -fortunately this did not appear to be related to infection; the hardware may be causing some of it, but there's definitely nothing urgent or surgical at play at this time -we'll be able to resume your regular suppressive doxycycline antibiotic and have you follow up with Dr Naylor in the office -as we discussed, while the bones/discs and hardware can be a cause of pain, we often see that the overlying muscles and ligaments are a cause of pain as well - - it's well worth discussing with Dr Florez if manipulative medicine directed at the muscles and ligaments of your low back may help improve the pain as well 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 when you follow up with Dr Florez next week, this information will help him determine how best to continue the dosing of the propranolol please note, the computer med list appeared to not be entirely accurate for your case. THE ONLY CHANGES WE DELIBERATELY MADE TO YOUR MEDICATIONS WERE THE CHANGE FROM METOPROLOL TO PROPRANOLOL AND THE TEMPORARY ADDITION OF THE OXYCODONE AND ZOFRAN NEEDED FOR PAIN AND NAUSEA - if there's anything else listed as different, please keep taking your medications the way you previously were Current Hospital Diet Patient's current hospital diet: Low Sodium Diet (2gm Na), Diabetes Type 2 Diet Discharge Diet Recommended Diet: Low Sodium Diet (2gm Na), Diabetes Type 2 Diet Pending Studies Studies pending at discharge: no Laboratory Results Hemoglobin A1c Test 08/15/17 12:24 Range/Units Estimated Average Glucose 128 mg/dl Hemoglobin A1c 6.1 H 4.5-5.6 % Lipid Panel Test 08/15/17 12:24 Range/Units Triglycerides Level 38 0-150 mg/dl Cholesterol Level 157 0-200 mg/dl HDL Cholesterol 54 mg/dl Cholesterol/HDL Ratio 2.9 LDL Cholesterol, Calculated 95 mg/dl Medical Emergencies . Who to Call and When: Medical Emergencies: If at any time you feel your situation is an emergency, please call 911 immediately. . Non-Emergent Contact Non-Emergency issues call your: Primary Care Provider, Surgeon . . "Provider Documentation" section prepared by Tj Olvera. .
[2017-09-01 14:59] VITALS: BP 119/64; PULSE 51; TEMP 36.6; O2SAT 96
[2017-09-01] MEDS: WARFARIN SOD 7.5 MG TAB PO SCH (15:46)
[2017-09-01 15:52] VITALS: BP 119/64; PULSE 51; TEMP 36.6; O2SAT 96
--- NOTE | 2017-09-01 18:17 | Discharge Summary ---
Discharge Summary Date of Service Sep 01, 2017. Discharge Summary Admission Date: Aug 30, 2017 at 12:16 Discharge Date: Sep 01, 2017 Discharge Disposition: Home Principal Diagnosis: back pain - concern on worsening discitis/hardware infection Problems/Secondary Diagnoses: fortunately concerns on worsening/hardware infection unfounded after further review Immunizations: Have You Had Influenza Vaccine: Yes Influenza Vaccine Date: May 17, 2013 History of Tetanus Vaccine?: utd History of Pneumococcal: Yes Pneumococcal Date: May 17, 2013 History of Hepatitis B Vaccine: Unknown Procedures: MRI LUMBAR SPINE W/O CONTRAST CLINICAL HISTORY: acute back pain RIGHT LEG RADICULOPATHY. TECHNIQUE: Sagittal and axial T1, T2 and STIR images were obtained. COMPARISON STUDY: MRI the lumbar spine dated 03/10/2017 , CT scan dated 08/30/2017 OBSERVATIONS: There are postsurgical changes of an L4-5 discectomy and interbody fusion. There is posterior pedicle screw fixation extending from the L3 to the S1 levels. There is secondary artifact. There are old superior endplate L1 and L2 deformities. Marrow signal abnormalities involving the inferior L2 endplate are felt to be secondary to a chronic fracture and osteophytic spurs. L1-2: There is a mild circumferential disc bulge. There is no significant spinal or foraminal stenosis L2-3: There is a circumferential disc bulge with moderate spinal stenosis. There is mild bilateral foraminal narrowing L3-4: There are postsurgical changes of a posterior spinal decompression. There is no significant spinal or foraminal stenosis L4-5: Postsurgical changes are evident. There is no significant spinal or foraminal stenosis L5-S1: There is a small central disc protrusion. There is mild thecal sac deformity. There is mild bilateral foraminal narrowing. The conus medullaris and cauda equina appear normal. IMPRESSION: 1. Postsurgical changes as described above 2. L2-3 disc bulge with secondary moderate spinal stenosis. There is mild bilateral foraminal narrowing 3. Small central disc protrusion at the L5-S1 level with mild bilateral foraminal narrowing 4. Marrow signal abnormalities at the L2 level, secondary to chronic fragmentation and osteophyte formation. 5. Old superior endplate L1 compression deformity. Electronically signed by: Oscar Sheppard M.D. 08/31/2017 3:22 PM Dictated Date/Time: 08/31/2017 3:12 PM Last Resulted CBC 09/01/17 05:55 Last Resulted BMP 09/01/17 05:55 Consultations: ortho/spine: Progress Note Date of Service Sep 01, 2017. Progress Note I met with the patient today and his sister. We lengthy discussion regarding his progress and MRI findings. Fortunately I do not appreciate evidence of infection or epidural fluid collection on his updated scan. 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 This point is relatively stable. He should follow-up with Dr. Naylor in the next 2-4 weeks for follow-up. infectious disease Medication Reconciliation New Medications: Ondansetron Odt (Zofran Odt) 8 Mg Soltab 4 MG SL Q6H PRN for Nausea, #30 TAB Oxycodone HCl (Oxycodone HCl) 5 Mg Tab 10 MG PO Q6 PRN for Pain, #30 TAB Propranolol (Inderal) 20 Mg Tab 20 MG PO TID, #90 TAB Continued Medications: Aspirin (Aspirin Chewable) 81 Mg Chew 81 MG PO QAM Bupropion HCl (Bupropion HCl Sr) 100 Mg Tabcr 100 MG PO QAM Diltiazem Hcl Ext Rel (Tiazac) 180 Mg Capcr 180 MG PO QAM, CAP Duloxetine HCl (Cymbalta) 30 Mg Cap 1 CAP PO QAM, CAP 2 Refills Dutasteride (Avodart) 0.5 Mg Cap 0.5 MG PO HS, CAP Eplerenone (Inspra) 25 Mg Tab 1 TAB PO QAM Ezetimibe (Zetia) 10 Mg Tab 10 MG PO QAM, TAB Folic Acid (Folvite) 1 Mg Tab 1 MG PO DAILY AFTERNOON, TAB Furosemide (Lasix) 40 Mg Tab 40 MG PO QAM, TAB Insulin Glargine (Lantus) 100 Unit/Ml Inj 10 UNITS SC HS, VIAL Isosorbide Mononitrate Ext Rel (Imdur Ext Rel) 120 Mg Ertab 120 MG PO QAM, TAB Lactulose (Chronulac) 10 Gm/15 Ml Syrp 1 DOSE PO TID Lisinopril (Prinivil) 10 Mg Tab 10 MG PO QAM, TAB Magnesium Oxide (Mag-Ox) 400 Mg Tab 400 MG PO DAILY AFTERNOON, TAB Multivitamin (Multivitamin) Tab 1 TAB PO QAM, TAB Nitroglycerin (Nitrostat) 0.4 Mg Sub 0.4 MG UT PRN, BTL [place]-3 Fatty Acids (Fish Oil) 1 Cap Cap 1 CAP PO BID Pantoprazole (Protonix) 40 Mg Tab 40 MG PO QAM, #30 TAB Rifaximin (Xifaxan) 200 Mg Tab 200 MG PO BID, TAB Tamsulosin HCl (Tamsulosin HCl) 0.4 Mg Cap 1 CAP PO HS Warfarin Sodium (Coumadin) 5 Mg Tab 7.5 MG PO 3XWK, TAB Warfarin Sodium (Coumadin) 5 Mg Tab 10 MG PO 4XWK, TAB Discontinued Medications: Daptomycin (Daptomycin) 500 Mg Inj 1 DOSE IV DAILY TX FOR 6 WEEKS FOR SPINAL INFECTION Metoprolol Tartrate (Lopressor) (Lopressor) 50 Mg Tab 50 MG PO TID, TAB Discharge Exam Physical Exam: General Appearance: no apparent distress Eyes: EOMI ENT: hearing grossly normal Neck: trachea midline Respiratory/Chest: no respiratory distress, no accessory muscle use Extremities: normal inspection Neurologic/Psychiatric: contracts intern II-XII nml as tested, alert, normal mood/affect Skin: normal color, warm/dry Hospital Course 66-year-old male with chronic lumbar spine hardware spine infection, recent change in pain quality and concern for changes on imaging: chronic discitis - fortunately no evidence of acuity - resume suppressive doxy Lumbar spine compression fracture and possible loosening of hardware -seen by orthospine, MRI ordered and reassuring from infection standpoint -does not harbor much of any osteoporosis risks in regards to fractures - would have outpt vitamin D level checked, consider DEXA but if D normal given lack of other risks may be low yield -back pain probably multifactorial - to see orthospine in ~2-4wks as outpt, PCP to eval for biomechanical component and consider soft tissue focused OMT -acute pain control short Rx oxycodone since that was helping inpatient Diabetes -sugars adequate continue home meds Cardiac disease/hypertension -transitioned beta mary from metoprolol to inderal to try to help w tremor - to follow BP daily to BID at home, f/u PCP next week to adjust dose if needed essential tremor -inderal as above, discussed extensively BPH -tamsulosin and Avodart Depression -Wellbutrin and Cymbalta Chronic liver failure suspected from fatty liver disease - continue Xifaxan and lactulose - no signs of encephalopathy at this time DVT proph - on coumadin Total Time Spent: Greater than 30 minutes This includes examination of the patient, discharge planning, medication reconciliation, and communication with other providers. Discharge Instructions Please refer to the electronic Patient Visit Report (Discharge Instructions) for additional information. Follow-Up Dr Florez next week ortho/spine 2-4wks Additional Copies To Wayne Florez D.O.
== END 2017-09-01 16:10 | disposition home or self-care (01) | DRG 560 ==
LOC: C.MSN 12:16
PROVIDERS: ADMIT Internal Medicine; ATTEND Family Medicine
DX: T84.7XXA Infection and inflammatory reaction due to other internal orthopedic prosthetic devices, implants and grafts, initial encounter (principal); M48.56XA Collapsed vertebra, not elsewhere classified, lumbar region, initial encounter for fracture; T84.226A Displacement of internal fixation device of vertebrae, initial encounter; Y79.2 Prosthetic and other implants, materials and accessory orthopedic devices associated with adverse incidents; M48.061 Spinal stenosis, lumbar region without neurogenic claudication; M47.816 Spondylosis without myelopathy or radiculopathy, lumbar region; M46.46 Discitis, unspecified, lumbar region; G89.29 Other chronic pain; K72.10 Chronic hepatic failure without coma; K76.0 Fatty (change of) liver, not elsewhere classified; I25.10 Atherosclerotic heart disease of native coronary artery without angina pectoris; I48.91 Unspecified atrial fibrillation; I10 Essential (primary) hypertension; E11.9 Type 2 diabetes mellitus without complications; E78.00 Pure hypercholesterolemia, unspecified; K21.9 Gastro-esophageal reflux disease without esophagitis; G25.0 Essential tremor; E07.9 Disorder of thyroid, unspecified; N40.0 Benign prostatic hyperplasia without lower urinary tract symptoms; G47.30 Sleep apnea, unspecified; M19.90 Unspecified osteoarthritis, unspecified site; F41.9 Anxiety disorder, unspecified; F32.9 Major depressive disorder, single episode, unspecified; Z95.1 Presence of aortocoronary bypass graft; Z79.2 Long term (current) use of antibiotics; Z87.891 Personal history of nicotine dependence; Z88.8 Allergy status to other drugs, medicaments and biological substances; Z79.82 Long term (current) use of aspirin; Z79.4 Long term (current) use of insulin; Z79.01 Long term (current) use of anticoagulants; Z79.899 Other long term (current) drug therapy

== ENCOUNTER → 2017-08-30 | Outpatient (CLI) | payer BC, OTHER ==
[~2017-08-30] MED LIST changes: +ONDA8TAB62 SL; +PROP20TA67 PO; +RXC5 PO
--- NOTE | 2017-08-30 08:20 | DIAGNOSTIC IMAGING REPORT ---
LUMBAR SPINE WITHOUT CLINICAL HISTORY: 66 years-old Male presenting with M54.5 Low back [id number], back pain since last surgery. TECHNIQUE: Multidetector CT of the lumbar spine was performed without the use of intravenous contrast. IV contrast: None. A dose lowering technique was used consistent with the principles of ALARA (as low as reasonably achievable). COMPARISON: 09/24/2014. CT DOSE (mGy.cm): The estimated cumulative dose is 682.34 mGycm. FINDINGS: Head Charrer topogram: Posterior lumbar fusion hardware and interbody spacer noted. Posterior bilateral transpedicular screw and carlos alberto fixation of L3-S1 with interbody spacer at L4-5, which has been extended since the prior CT exam which demonstrated only fusion of the L4-5 level. Fusion hardware is unchanged since prior radiographs from 06/25/2015. There is significant radiolucency surrounding the bilateral S1 screws. Significant interval increase in anterior osteophytosis at L5-S1. Significant interval increase in anterior osteophytosis also noted at L1-2 and L2-3. Interval development of significant deformity of L2, including superior endplate concavity, anterior wedging, and possible fracture of the anterior inferior aspect of L2. More subtle superior endplate concavity at L1 also noted. No retropulsion of fracture fragments. Osteopenia. Osseous neural foraminal narrowing noted to varying degrees but most significantly at L2-3 and L5-S1 bilaterally. No significant osseous spinal canal narrowing. Paraspinal soft tissues remarkable for atherosclerosis of the normal caliber abdominal aorta and a prominent left renal cyst. IMPRESSION: 1. Interval extension of the posterior lumbar fusion, which now spans from L3 to S1 with interbody spacer at L4-5. 2. Significant radiolucency surrounding the bilateral S1 transpedicular screws, which is concerning for loosening or infection. 3. Significant interval progression of degenerative change with varying degrees of neural foraminal narrowing most severe at L2-3 and L5-S1 bilaterally. 4. Interval development of a compression fracture deformity of L2 and less pronounced at L1 in the setting of osteopenia. This is new since prior CT in 2014 and prior radiographs in 2015. Bony edema suggesting acuity would be better demonstrated on MR. The report will be called/faxed according to standard departmental protocol. Electronically signed by: Percy Vasquez M.D. 08/30/2017 8:19 AM Dictated Date/Time: 08/30/2017 8:12 AM
== END | disposition home or self-care (01) ==
LOC: C.CTS 07:44
PROVIDERS: ATTEND Internal Medicine Infectious Disease
DX: M54.5 Low back pain (principal); Z98.1 Arthrodesis status

== ENCOUNTER 2017-10-10 20:52 | Observation (INO) | payer BC, OTHER ==
[~2017-10-10] VITALS: Ht 177.8 cm; Wt 126.3 kg
[~2017-10-10 20:52] MED LIST changes: -DAPT500I IV; -METO50TA16 PO; +ONDA8TAB62 SL; +PROP20TA67 PO; +RXC5 PO
[2017-10-10] MEDS ORDERED: SODIUM CHLORIDE 0.9% 1000ML 1,000 ML IV STA (21:25)
[2017-10-10 21:37] LABS: MEAN CORPUSCULAR HGB CONC 33.8 g/dl (32-36)
[2017-10-10 21:47] LABS: CALCIUM 8.7 mg/dl (8.5-10.1); CREATININE 0.8 mg/dl (0.60-1.40); HEMOGLOBIN 12.5 g/dL (14.0-18.0); MEAN CELL VOLUME 73.1 fL (80-100); MEAN CORPUSCULAR HEMOGLOBIN 24.7 pg (25-34); POTASSIUM 3.6 mmol/L (3.5-5.1); RED CELL DISTRIBUTION WIDTH CV 17.3 % (11.5-14.5); RED CELL DISTRIBUTION WIDTH SD 45.9 fL (36.4-46.3); WHITE BLOOD COUNT 3.67 K/uL (4.8-10.8)
[2017-10-10 21:50] LABS: INR 2.9 (0.9-1.1); PTT PATIENT 39.2 SECONDS (21.0-31.0)
[2017-10-10 22:04] LABS: TOTAL PROTEIN 7.7 gm/dl (6.4-8.2)
[2017-10-10 22:06] LABS: PLATELET COUNT 112 K/uL (130-400)
--- NOTE | 2017-10-10 22:06 | DIAGNOSTIC IMAGING REPORT ---
CHEST ONE VIEW PORTABLE CLINICAL HISTORY: CHEST PAIN chest pain COMPARISON STUDY: 03/23/2017 FINDINGS: Mild stable cardiomegaly. Prior median sternotomy. Lungs are clear. The diaphragms are smooth. IMPRESSION: Mild stable cardiomegaly. Otherwise negative study The above report was generated using voice recognition software. It may contain grammatical, syntax or spelling errors. Electronically signed by: Clyde Montgomery M.D. 10/10/2017 10:05 PM Dictated Date/Time: 10/10/2017 10:04 PM
[2017-10-10 22:07] LABS: BASO % 0.3 %; BASO ABS # 0.01 K/uL (0-0.2); EOS % 1.6 %; EOS ABS # 0.06 K/uL (0-0.5); IG# 0.01 K/uL (0.00-0.02); LYMPH % 34.6 %; LYMPH ABS # 1.27 K/uL (1.2-3.4); MONO % 10.9 %; NEUT % 52.3 %; NEUT ABS # 1.92 K/uL (1.4-6.5)
[2017-10-10] MEDS ORDERED: OXYCODONE HCL IR 5 MG TAB (IMMEDIATE RELEASE) PO PRN (22:45)
[2017-10-10] MEDS ORDERED: GLUCOSE 40% GEL 15 GM TUBE PO PRN (22:45)
[2017-10-10] MEDS ORDERED: GLUCAGON FOR INJ 1 MG VIAL SQ PRN (22:45)
[2017-10-10] MEDS ORDERED: ONDANSETRON INJ 2 MG/ML 2 ML VIAL IV PRN (22:45)
[2017-10-10] MEDS ORDERED: GLUCOSE 10 TABS/TUBE PO PRN (22:45)
[2017-10-10] MEDS ORDERED: DEXTROSE 50% 50 ML SYR IV PRN (22:45)
[2017-10-10] MEDS ORDERED: NITROGLYCERIN 0.4 MG SL PER TAB CHARGE SL PRN (22:45)
--- NOTE | 2017-10-10 23:11 | History and Physical ---
History & Physical Date & Time of Service: Oct 10, 2017 at 23:11 Chief Complaint: Palpitations Primary Care Physician: Wayne Florez D.O. History of Present Illness Source: patient, hospital records The patient is a 67-year-old male who presents to the emergency department via ambulance due to chest and abdominal pain with palpitations. He has a known past medical history including atrial fibrillation/atrial flutter, CAD, CABG 2 procedures, diabetes, dyslipidemia, hypertension who reports that about 7 hours prior to arrival while he was at the hospital getting routine laboratory work, he developed shortness of breath and lightheadedness. When he sat down, he developed left-sided chest pain and palpitations. When he arrived at his car, dizziness and chest pain returned, and now had newly developed shortness of breath. He continued to have intermittent shortness of breath with lightheadedness throughout the day, and then 2 hours prior to arrival he developed acute epigastric area pain with cramping. He did develop some nausea at this time as well. He then went to a local urgent care center, with reported EKG changes there, and was then transferred to the ED via ambulance. He did receive aspirin and nitroglycerin en route to the hospital, which he reports relieved his symptoms. Upon arrival in the emergency department he was chest pain-free and abdominal pain-free without nausea. He does report that the only oral intake he had today was a cup of coffee and a doughnut around lunchtime. 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 (18) Lumbar back pain (19) Lumbar canal stenosis (20) Osteomyelitis (21) Postoperative wound infection (22) Sepsis due to coagulase-negative staphylococcal infection Family History Stroke FATHER MOTHER Social History Smoking Status: Former Smoker Smokeless Tobacco Use: No Alcohol Use: none Drug Use: marijuana Marital Status: Housing status: lives with family Occupational Status: disabled Immunizations History of Influenza Vaccine: Yes Influenza Vaccine Date: May 17, 2013 History of Tetanus Vaccine?: utd History of Pneumococcal: Yes Pneumococcal Date: May 17, 2013 History of Hepatitis B Vaccine: Unknown Allergies Coded Allergies: Simvastatin (Verified Adverse Reaction, Intermediate, GI UPSET- OK WITH LIPITOR, 04/20/17) Spironolactone (Verified Adverse Reaction, Mild, NIPPLES HURT, 04/20/17) Pioglitazone (Verified Adverse Reaction, Unknown, DOESN'T REMEMBER, ) Home Medications Scheduled Aspirin (Aspirin Chewable), 81 MG PO QAM Bupropion HCl (Bupropion HCl Sr), 100 MG PO QAM Diltiazem Hcl Ext Rel (Tiazac), 180 MG PO QAM Duloxetine HCl (Cymbalta), 1 CAP PO QAM Dutasteride (Avodart), 0.5 MG PO HS Eplerenone (Inspra), 1 TAB PO QAM Ezetimibe (Zetia), 10 MG PO QAM Folic Acid (Folvite), 1 MG PO DAILY AFTERNOON Furosemide (Lasix), 40 MG PO QAM Insulin Glargine (Lantus), 10 UNITS SC HS Isosorbide Mononitrate Ext Rel (Imdur Ext Rel), 120 MG PO QAM Lactulose (Chronulac), 1 DOSE PO TID Lisinopril (Prinivil), 10 MG PO QAM Magnesium Oxide (Mag-Ox), 400 MG PO DAILY AFTERNOON Multivitamin (Multivitamin), 1 TAB PO QAM Nitroglycerin (Nitrostat), 0.4 MG UT PRN [place]-3 Fatty Acids (Fish Oil), 1 CAP PO BID Pantoprazole (Protonix), 40 MG PO QAM Propranolol (Inderal), 20 MG PO TID Rifaximin (Xifaxan), 200 MG PO BID Tamsulosin HCl (Tamsulosin HCl), 1 CAP PO HS Warfarin Sodium (Coumadin), 7.5 MG PO 3XWK Warfarin Sodium (Coumadin), 10 MG PO 4XWK Scheduled PRN Ondansetron Odt (Zofran Odt), 4 MG SL Q6H PRN for Nausea Oxycodone HCl (Oxycodone HCl), 10 MG PO Q6 PRN for Pain Review of Systems The patient presently denies chest pain, palpitations, shortness of breath, dyspnea on exertion, cough, lower extremity swelling, sore throat, fevers, chills, sweats, weight change, nausea, vomiting, diarrhea , constipation, abdominal pain, pelvic pain, blood in urine or stool, dysuria, urinary frequency or urgency, lightheadedness , dizziness, headache, memory loss, loss of consciousness, rash, abnormal bruising or bleeding, imbalance, focal or generalized weakness, numbness or tingling in arms or legs, generalized arthralgias or myalgias, neck pain, or night sweats. The review of systems is otherwise negative other than for that already noted above, and at least 10 systems have been reviewed. Physical Exam Vital Signs Date Time Temp Pulse Resp B/P (MAP) Pulse Ox O2 Delivery O2 Flow Rate FiO2 10/10/17 22:44 69 15 156/98 99 Room Air 10/10/17 21:57 73 15 159/79 100 Room Air 10/10/17 21:06 99 Room Air 10/10/17 21:04 75 10/10/17 21:00 99 Room Air 10/10/17 21:00 36.8 74 18 169/93 100 Room Air The patient is awake, alert and oriented 3, well developed and well nourished, normocephalic and atraumatic, lying in bed and in no acute distress. HEENT--PERRL, EOMI, mucous membranes and oropharynx dry. Neck--supple. No JVD. No bruits. Thyroid normal, trachea midline, no adenopathy. Heart--normal S1 and S2. No murmurs, rubs or gallops. Lungs--clear bilaterally, no respiratory distress, no accessory muscle use. Abdomen--normal bowel sounds and soft. Nontender. Nondistended, no hernias or masses, no organomegaly. Extremities--no cyanosis or clubbing. No edema. There are good distal pulses b/ l. Dermatologic--normal skin turgor, normal color, no abnormal lymph nodes, no rash. Neurologic--cranial nerves II through XII grossly intact. Rheumatologic--normal range of motion. Psychiatric--normal affect. Diagnostics Laboratory Results Results Past 24 Hours Test 10/10/17 20:40 10/10/17 21:45 10/10/17 22:50 Range/Units White Blood Count 3.67 4.8-10.8 K/uL Red Blood Count 5.06 4.7-6.1 M/uL Hemoglobin 12.5 14.0-18.0 g/dL Hematocrit 37.0 42-52 % Mean Corpuscular Volume 73.1 80-100 fL Mean Corpuscular Hemoglobin 24.7 25-34 pg Mean Corpuscular Hemoglobin Concent 33.8 32-36 g/dl Platelet Count 112 130-400 K/uL Neutrophils (%) (Auto) 52.3 % Lymphocytes (%) (Auto) 34.6 % Monocytes (%) (Auto) 10.9 % Eosinophils (%) (Auto) 1.6 % Basophils (%) (Auto) 0.3 % Neutrophils # (Auto) 1.92 1.4-6.5 K/uL Lymphocytes # (Auto) 1.27 1.2-3.4 K/uL Monocytes # (Auto) 0.40 0.11-0.59 K/uL Eosinophils # (Auto) 0.06 0-0.5 K/uL Basophils # (Auto) 0.01 0-0.2 K/uL RDW Standard Deviation 45.9 36.4-46.3 fL RDW Coefficient of Variation 17.3 11.5-14.5 % Immature Granulocyte % (Auto) 0.3 % Immature Granulocyte # (Auto) 0.01 0.00-0.02 K/uL Platelet Estimate DECREASED Polychromasia 1+ Microcytosis PRESENT Target Cells 1+ Prothrombin Time 29.7 9.0-12.0 SECONDS Prothromb Time International Ratio 2.9 0.9-1.1 Activated Partial Thromboplast Time 39.2 21.0-31.0 SECONDS Partial Thromboplastin Ratio 1.5 Sodium Level 142 136-145 mmol/L Potassium Level 3.6 3.5-5.1 mmol/L Chloride Level 108 98-107 mmol/L Carbon Dioxide Level 29 21-32 mmol/L Anion Gap 5.0 3-11 mmol/L Blood Urea Nitrogen 7 7-18 mg/dl Creatinine 0.80 0.60-1.40 mg/dl Est Creatinine Clear Calc Drug Dose 123.8 ml/min Estimated GFR () 108.7 Estimated GFR (Non- 93.7 BUN/Creatinine Ratio 8.8 10-20 Random Glucose 71 70-99 mg/dl Calcium Level 8.7 8.5-10.1 mg/dl Magnesium Level 1.8 1.8-2.4 mg/dl Total Bilirubin 0.7 0.2-1 mg/dl Direct Bilirubin 0.3 0-0.2 mg/dl Aspartate Amino Transf (AST/SGOT) 101 15-37 U/L Alanine Aminotransferase (ALT/SGPT) 77 12-78 U/L Alkaline Phosphatase 272 45-117 U/L Troponin I 0.055 0-0.045 ng/ml Total Protein 7.7 6.4-8.2 gm/dl Albumin 3.0 3.4-5.0 gm/dl Lipase 214 73-393 U/L Bedside Lactic Acid Venous 1.55 0.90-1.70 mmol/L Bedside Troponin I 0.030 0-0.045 ng/ml Diagnostic Radiology Patient Name: RAMY CHARLES Unit Number: [id number] Dictated: 10/10/172203 Transcribed: 10/10/172203 MS Printed Date/Time: [~ rep prt dt]/[~ rep prt tm] [~ rep ct labl] - [~ rep ct ivnm] [facility] [place] [address] Dictated: 10/10/172203 Transcribed: 10/10/172203 MS Printed Date/Time: [~ rep prt dt]/[~ rep prt tm] [~ rep ct labl] - [~ rep ct ivnm] CHEST ONE VIEW PORTABLE CLINICAL HISTORY: CHEST PAIN chest pain COMPARISON STUDY: 03/23/2017 FINDINGS: Mild stable cardiomegaly. Prior median sternotomy. Lungs are clear. The diaphragms are smooth. IMPRESSION: Mild stable cardiomegaly. Otherwise negative study The above report was generated using voice recognition software. It may contain grammatical, syntax or spelling errors. Electronically signed by: Clyde Montgomery M.D. 10/10/2017 10:05 PM Dictated Date/Time: 10/10/2017 10:04 PM The status of this report is Signed. Draft = Not yet reviewed or approved by Radiologist. Signed = Reviewed and approved by Radiologist. <AttendingPhy></AttendingPhy> <FamilyPhy>Wayne Florez D.O.</FamilyPhy> < PrimaryPhy>Wayne Florez D.O.</PrimaryPhy> <UnitNumber>[id number]</ UnitNumber> <VisitNumber>[id number]</VisitNumber> <PatientName>RAMY CHARLES</PatientName> <DateOfBirth>1950</DateOfBirth> <Location>C.EDB</Location > <ServiceDate>10/10/17</ServiceDate> <MNE>ESINDI</MNE> <OrderingPhy>Bertram Franco PA-C</OrderingPhy> <OrderingPhyMNE>f rep ord dr goodwin</OrderingPhyMNE> < DictatingPhyMNE>f rep dict dr goodwin</DictatingPhyMNE> <CCListMNE>f rep ct tashiae</ CCListMNE> <AdmittingPhyMNE>f pt admit dr goodwin</AdmittingPhyMNE> <AttendingPhyMNE >f pt attend dr goodwin</AttendingPhyMNE> <ConsultingPhyMNE>f pt consult dr goodwin</ConsultingPhyMNE> <FamilyPhyMNE>f pt fam dr goodwin</FamilyPhyMNE> <OtherPhyMNE>f pt other dr goodwin</OtherPhyMNE> < PrimaryPhyMNE>f pt prim care dr goodwin</PrimaryPhyMNE> <ReferringPhyMNE>f pt referring dr goodwin</ReferringPhyMNE> EKG EKG shows normal sinus rhythm at 75 bpm, right bundle branch block, new or T- wave inversion in lead V2, no other acute ST-T changes. Impression Assessment and Plan Elevated troponin/epigastric pain/chest pain/palpitations-- Past medical history CAD, status post CABG 2 procedures, atrial fibrillation/ atrial flutter, and hypertension-- The patient will be admitted to telemetry for serial cardiac enzymes, serial EKG's, and cardiac rhythm monitoring. He does report having recent echocardiograms done at [facility] and [facility]. Continue Inderal 20 mg p.o. 3 times daily, nitroglycerin sublingual as as needed , mag oxide 40 mg daily, lisinopril 10 mg p.o. every morning, Imdur extended release 120 mg every morning, Tiazac 180 mg every morning and aspirin chewable 81 mg daily. Change Coumadin to 7.5 mg p.o. daily. Follow serial PT/INR. Hold furosemide. Gentle rehydration with IV fluids. 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 Root. Diabetes mellitus/episodes of hypoglycemia today-- Blood sugar was 67 as reported by EMS, and was 77 upon arrival in the ED. Hypoglycemia may be in part responsible for triggering symptoms earlier today. Hold Lantus 10 units subcu at bedtime tonight. Placed on Accu-Cheks before meals and at bedtime with NovoLog coverage per scale. SWIFT/liver cirrhosis/disproved question of liver cancer-- Continue Inderal as noted above, Xifaxan 20 mg p.o. twice daily, lactulose 10 mg syrup p.o. 3 times daily. BPH-- Continue Avodart 5 mg p.o. at bedtime and tamsulosin 0.4 mg p.o. at bedtime. Hyperlipidemia-- Continue Zetia 10 mg p.o. daily. Anxiety with depression-- Continue Cymbalta 30 mg daily, bupropion SR 100 mg p.o. every morning. Chronic pain syndrome/status post lumbar surgery-- Continue oxycodone 5 mg p.o. every 6 hours as needed. GERD--continue pantoprazole 40 mg p.o. every morning. Advanced Directives Existing Advance Directive: No Existing Living Will: No Existing Power of Lace Stripper: No Resuscitation Status VTE Prophylaxis Will order VTE Prophylaxis: Yes Social Service Consult None Apply
[2017-10-10 23:45] VITALS: BP 183/87; PULSE 74; TEMP 37.1; O2SAT 99; Ht 177.8 cm; Wt 126.3 kg
[2017-10-11] VITALS (9 sets, daily range): BP systolic 130–174; BP diastolic 77–100; PULSE 49–108; TEMP 36.4–37.1; O2SAT 95–100
[2017-10-11] MEDS: NSS + 20MEQ KCL 1000ML 1,000 ML IV SCH ×2 (00:57→11:30)
[2017-10-11] MEDS ORDERED: IV FLUIDS COMPLETED PRN (01:00)
--- NOTE | 2017-10-11 01:20 | EMERGENCY ROOM VISIT NOTE ---
ED Visit Note First contact with patient: 21:06 Chief Complaint: Chest and abdominal pain. History of Present Illness: Mr. Herring is a 67 year-old black male who is brought into the ED via ambulance for chest and abdominal pain. Historically patient reports she has a history of atrial fibrillation and atrial flutter, coronary artery disease with 2 CABG procedures, diabetes, dyslipidemia, hypertension. Patient reports approximately 2 PM this afternoon, approximately 7 hours ago, he reports he was at this hospital to have laboratory tests performed. He reported that as he started walking out of the hospital he developed shortness of breath and lightheadedness. He reports he sat down and then developed left- sided chest pain. This resolved after a few minutes then he proceeded to get up and walk out to his car. Once he arrived back at the car he reports he had return of dizziness and chest pain but now was experiencing short of breath. He reports he waited in the car until resolution of the symptoms and then drove home. He goes on to report intermittently through the rest of the day he was having some shortness of breath and lightheadedness but did not have return of chest pain. He goes on to report that approximately 2 hours ago while at home he developed an acute onset of periumbilical pain. He describes his pain as a cramping sensation. He rated his discomfort 8/10. The pain was nonradiating. He has not identified any aggravating or alleviating factors related to the pain. He does note that it occurred after eating dinner. He did not take any medications for this discomfort. Associated with his pain he reports he was nauseated. He then went on to a local urgent care center for further evaluation and care and was eventually transported to the ED via ambulance because of EKG changes. During transport patient reports he had aspirin and nitroglycerin which subsequently relieved his symptoms prior to arrival in the emergency department. Currently patient reports he is pain and symptom-free. He is currently having no associated symptoms. When he was having symptoms he was not experiencing any fevers, chills, sweats, skin eruptions, skin color changes, lightheadedness , dizziness, upper respiratory tract symptoms, cough, wheezing, palpitations, orthopnea, dependent edema, previous clots, claudication, cramping, recent surgery/inactivity/extended travel, abdominal pain, extremity weakness/numbness/ tingling. Review of Systems: As noted above in history of present illness. All body systems were reviewed and found to be negative as noted above. Past Medical History: As previously noted, anemia, nonalcoholic cirrhosis, lumbar spine infection. Current Medications: Medications Dose Route/Sig Max Daily Dose Days Date Category Zofran Odt (Ondansetron HCl) 8 Mg Soltab 4 Mg SL Q6H PRN 09/01/17 Rx Oxycodone HCl 5 Mg Tab 10 Mg PO Q6 PRN 09/01/17 Rx Inderal (Propranolol HCl) 20 Mg Tab 20 Mg PO TID 09/01/17 Rx Tamsulosin HCl 0.4 Mg Cap 1 Cap PO HS 04/20/17 Reported Xifaxan (Rifaximin) 200 Mg Tab 200 Mg PO BID 04/20/17 Reported Protonix (Pantoprazole Sodium) 40 Mg Tab 40 Mg PO QAM 04/20/17 Reported Nitrostat (Nitroglycerin) 0.4 Mg Sub 0.4 Mg UT PRN 04/20/17 Reported Multivitamin (Multivitamins) Tab 1 Tab PO QAM 04/20/17 Reported Mag-Ox (Magnesium Oxide) 400 Mg Tab 400 Mg PO DAILY AFTERNOON 04/20/17 Reported Prinivil (Lisinopril) 10 Mg Tab 10 Mg PO QAM 04/20/17 Reported Chronulac (Lactulose) 10 Gm/15 Ml Syrp 1 Dose PO TID 04/20/17 Reported Imdur Ext Rel (Isosorbide Mononitrate) 120 Mg Ertab 120 Mg PO QAM 04/20/17 Reported Lantus (Insulin Glargine) 100 Unit/Ml Inj 10 Units SC HS 04/20/17 Reported Lasix (Furosemide) 40 Mg Tab 40 Mg PO QAM 04/20/17 Reported Folvite (Folic Acid) 1 Mg Tab 1 Mg PO DAILY AFTERNOON 04/20/17 Reported Fish Oil ([place]-3 Fatty Acids) 1 Cap Cap 1 Cap PO BID 04/20/17 Reported Zetia (Ezetimibe) 10 Mg Tab 10 Mg PO QAM 04/20/17 Reported Inspra (Eplerenone) 25 Mg Tab 1 Tab PO QAM 04/20/17 Reported Avodart (Dutasteride) 0.5 Mg Cap 0.5 Mg PO HS 04/20/17 Reported Cymbalta (Duloxetine HCl) 30 Mg Cap 1 Cap PO QAM 04/20/17 Reported Coumadin (Warfarin Sodium) 5 Mg Tab 10 Mg PO 4XWK 04/20/17 Reported Coumadin (Warfarin Sodium) 5 Mg Tab 7.5 Mg PO 3XWK 04/20/17 Reported Bupropion HCl Sr (Bupropion HCl) 100 Mg Tabcr 100 Mg PO QAM 03/17/17 Reported Tiazac (Diltiazem HCl) 180 Mg Capcr 180 Mg PO QAM 11/06/15 Reported Aspirin Chewable (Aspirin) 81 Mg Chew 81 Mg PO QAM 11/06/15 Reported Allergies to Medications: Simvastatin, spironolactone, pioglitazone. Social History: Patient is currently employed; he feels safe in his home environment; he denies tobacco use and alcohol use. Physical Examination: Vital Signs: Date Time Temp Pulse Resp B/P (MAP) Pulse Ox O2 Delivery O2 Flow Rate FiO2 10/10/17 22:44 69 15 156/98 99 Room Air 10/10/17 21:57 73 15 159/79 100 Room Air 10/10/17 21:06 99 Room Air 10/10/17 21:04 75 10/10/17 21:00 99 Room Air 10/10/17 21:00 36.8 74 18 169/93 100 Room Air GENERAL: 67-year-old male in no acute distress, nontoxic-appearing, afebrile and hemodynamically stable. NEUROLOGICAL: Awake, alert and oriented to person, place and time. Answering questions appropriately and following commands. Good hand eye coordination. SKIN: Warm, dry and pink. No soft tissue eruptions or trauma noted. HEENT: Atraumatic and normocephalic. PERRLA. Sclera white and conjunctiva pink. Oral cavity moist and pink. Pharynx is nonerythematous or edematous. Speech normal. No lymphadenopathy. Trachea midline. No jugular venous distention. No carotid bruits. BACK: No tenderness over the bony spine. THORAX: Lungs sounds are clear to auscultation and equal bilaterally with symmetrical chest wall. No wheezing, rales or rhonchi. No crepitus, tenderness , subcutaneous air or deformities noted. HEART: Regular rate and rhythm. No gallops, rubs or murmurs are appreciated. No lifts, heaves or thrills. PMI is not displaced. ABDOMEN: Obese, soft and nontender. Positive bowel sounds in all quadrants. No guarding, rigidity or organomegaly. EXTREMITIES: Moves all extremities well on command and with purpose. All distal neurovascular statuses are intact and equal bilaterally. No dependent edema or calf tenderness/cords. ED Course: Patient is assessed as noted above. Patient's medication list was reviewed. Laboratory Testing: Test 10/10/17 20:40 10/10/17 21:45 10/10/17 22:01 10/10/17 22:50 Range/Units White Blood Count 3.67 4.8-10.8 K/uL Red Blood Count 5.06 4.7-6.1 M/uL Hemoglobin 12.5 14.0-18.0 g/dL Hematocrit 37.0 42-52 % Mean Corpuscular Volume 73.1 80-100 fL Mean Corpuscular Hemoglobin 24.7 25-34 pg Mean Corpuscular Hemoglobin Concent 33.8 32-36 g/dl Platelet Count 112 130-400 K/uL Neutrophils (%) (Auto) 52.3 % Lymphocytes (%) (Auto) 34.6 % Monocytes (%) (Auto) 10.9 % Eosinophils (%) (Auto) 1.6 % Basophils (%) (Auto) 0.3 % Neutrophils # (Auto) 1.92 1.4-6.5 K/uL Lymphocytes # (Auto) 1.27 1.2-3.4 K/uL Monocytes # (Auto) 0.40 0.11-0.59 K/uL Eosinophils # (Auto) 0.06 0-0.5 K/uL Basophils # (Auto) 0.01 0-0.2 K/uL RDW Standard Deviation 45.9 36.4-46.3 fL RDW Coefficient of Variation 17.3 11.5-14.5 % Immature Granulocyte % (Auto) 0.3 % Immature Granulocyte # (Auto) 0.01 0.00-0.02 K/uL Platelet Estimate DECREASED Polychromasia 1+ Microcytosis PRESENT Target Cells 1+ Prothrombin Time 29.7 9.0-12.0 SECONDS Prothromb Time International Ratio 2.9 0.9-1.1 Activated Partial Thromboplast Time 39.2 21.0-31.0 SECONDS Partial Thromboplastin Ratio 1.5 Sodium Level 142 136-145 mmol/L Potassium Level 3.6 3.5-5.1 mmol/L Chloride Level 108 98-107 mmol/L Carbon Dioxide Level 29 21-32 mmol/L Anion Gap 5.0 3-11 mmol/L Blood Urea Nitrogen 7 7-18 mg/dl Creatinine 0.80 0.60-1.40 mg/dl Est Creatinine Clear Calc Drug Dose 123.8 ml/min Estimated GFR () 108.7 Estimated GFR (Non- 93.7 BUN/Creatinine Ratio 8.8 10-20 Random Glucose 71 70-99 mg/dl Calcium Level 8.7 8.5-10.1 mg/dl Magnesium Level 1.8 1.8-2.4 mg/dl Total Bilirubin 0.7 0.2-1 mg/dl Direct Bilirubin 0.3 0-0.2 mg/dl Aspartate Amino Transf (AST/SGOT) 101 15-37 U/L Alanine Aminotransferase (ALT/SGPT) 77 12-78 U/L Alkaline Phosphatase 272 45-117 U/L Troponin I 0.055 0-0.045 ng/ml Total Protein 7.7 6.4-8.2 gm/dl Albumin 3.0 3.4-5.0 gm/dl Lipase 214 73-393 U/L Bedside Lactic Acid Venous 1.55 0.90-1.70 mmol/L Bedside Troponin I 0.030 0-0.045 ng/ml Bedside Glucose 77 70-99 mg/dl Urine Color DK YELLOW Urine Appearance CLEAR CLEAR Urine pH 7.5 4.5-7.5 Urine Specific [place] 1.017 1.000-1.030 Urine Protein NEG NEG Urine Glucose (UA) NEG NEG Urine Ketones NEG NEG Urine Occult Blood NEG NEG Urine Nitrite NEG NEG Urine Bilirubin NEG NEG Urine Urobilinogen NEG NEG Urine Leukocyte Esterase NEG NEG Portable Chest X-Ray: Was read by myself and the radiologist showing mild stable cardiomegaly with prior sternotomy. Lungs were clear and there are no acute infiltrates, effusions or pneumothorax. EKG: Was reviewed by myself and read by the with an incomplete right bundle branch block. Anterior and inferior changes were noted when compared to previous appeared similar. This was compared to an EKG brought from the urgent care center the patient was seen at earlier this evening and shows improvement in the ST changes. Do not appreciate any infarction EKG changes. Patient was hydrated with normal saline. Patient was reassessed multiple times during her stay in the emergency department and remained pain and symptom-free. Patient's case was reviewed with Dr. Barajas; we agreed on diagnostic approach, treatment, disposition and plan. Patient's case was consulted with case management and Dr. Parisi for medical observation/admission. Patient was educated about today's findings. Clinical Impression: Chest pain. Abdominal pain. Elevated troponin. Decision-Making: Initially my differential diagnosis I considered acute coronary syndrome, ischemic abdomen, pneumothorax, pneumonia, pulmonary embolism and other causes. Disposition and Plan: Patient be brought in the hospital for medical observation /admission; please see Dr.'s Parisi notes and orders for final disposition and plan.
[2017-10-11] MEDS ORDERED: TRAZODONE HCL 50 MG TAB PO PRN (02:45)
[2017-10-11 05:27] LABS: MEAN CORPUSCULAR HGB CONC 33.9 g/dl (32-36)
[2017-10-11 05:33] LABS: HEMATOCRIT 33.3 % (42-52); HEMOGLOBIN 11.3 g/dL (14.0-18.0); MEAN CELL VOLUME 72.9 fL (80-100); MEAN CORPUSCULAR HEMOGLOBIN 24.7 pg (25-34); RED CELL DISTRIBUTION WIDTH CV 17.1 % (11.5-14.5); RED CELL DISTRIBUTION WIDTH SD 45.2 fL (36.4-46.3)
[2017-10-11 05:38] LABS: PTT PATIENT 39.3 SECONDS (21.0-31.0)
[2017-10-11 05:45] LABS: ALBUMIN 2.5 gm/dl (3.4-5.0); CALCIUM 8.2 mg/dl (8.5-10.1); CREATININE 0.69 mg/dl (0.60-1.40); POTASSIUM 3.3 mmol/L (3.5-5.1)
[2017-10-11 05:54] LABS: CKMB 1.4 ng/ml (0.5-3.6); TOTAL PROTEIN 6.6 gm/dl (6.4-8.2)
[2017-10-11 06:06] LABS: PLATELET COUNT 97 K/uL (130-400)
[2017-10-11] MEDS ORDERED: POTASSIUM CHLORIDE 20 MEQ TABCR PO STA (06:07)
[2017-10-11] MEDS ORDERED: MAGNESIUM SULFATE 1GM / D5W 100 ML IV STA (06:07)
[2017-10-11 06:09] LABS: BASO % 0.3 %; BASO ABS # 0.01 K/uL (0-0.2); EOS ABS # 0.07 K/uL (0-0.5); IG# 0.01 K/uL (0.00-0.02); LYMPH % 43.7 %; LYMPH ABS # 1.53 K/uL (1.2-3.4); MONO % 10.3 %; MONO ABS # 0.36 K/uL (0.11-0.59); NEUT % 43.4 %; NEUT ABS # 1.52 K/uL (1.4-6.5)
[2017-10-11] MEDS: PROPRANOLOL HCL 20 MG TAB PO SCH ×2 (08:03→14:00)
[2017-10-11] MEDS: LACTULOSE SYRUP 20 GM/30 ML UDC PO SCH ×2 (08:05→14:06)
[2017-10-11] MEDS: INSULIN ASPART 100 UNITS/ML 3 ML PEN SC SCH ×2 (08:11→12:03)
[2017-10-11] MEDS ORDERED: DILTIAZEM HCL (TIAzac) 180 MG CAPCR PO SCH (09:00)
[2017-10-11] MEDS ORDERED: ASPIRIN 81 MG CHEW PO SCH (09:00)
[2017-10-11] MEDS ORDERED: MULTIVITAMIN TAB PO SCH (09:00)
[2017-10-11] MEDS ORDERED: EZETIMIBE 10MG TAB PO SCH (09:00)
[2017-10-11] MEDS ORDERED: PANTOprazole SOD 40 MG TAB PO SCH (09:00)
[2017-10-11] MEDS ORDERED: BuPROPion SR 100 MG TABCR PO SCH (09:00)
[2017-10-11] MEDS ORDERED: RIFAXIMIN TAB 200 MG TAB PO SCH (09:00)
[2017-10-11] MEDS ORDERED: LISINOPRIL 10 MG TAB PO SCH (09:00)
[2017-10-11] MEDS ORDERED: DULOXETINE (CYMBALTA) 30 MG CAP PO SCH (09:00)
[2017-10-11] MEDS ORDERED: MAGNESIUM OXIDE 400 MG TAB PO SCH (09:00)
[2017-10-11] MEDS ORDERED: ISOSORBIDE MONONITRATE 60 MG TABCR PO SCH (09:00)
--- NOTE | 2017-10-11 11:56 | ECHOCARDIOGRAM REPORT ---
*NOTICE TO RECEIVING [employer]ENCY This information is strictly Confidential and protected under [place] law. [place] law prohibits you from making any further disclosure of this information unless further disclosure is expressly permitted by the written consent of the person to whom it pertains or is authorized by law. A general authorization for the release of medical or other information is not sufficient for this purpose. Hospital accepts no responsibility if the information is made available to any other person, INCLUDING THE PATIENT. Interpretation Summary * Name: RAMY CHARLES Study Date: 10/11/2017 07:08 AM BP: 161/100 mmHg * [facility] HR: 69 * : 1950 (M/d/yyyy) Gender: Male Height: 70 in * Age: 67 yrs Ethnicity: AA Weight: 282 lb * Ordering Physician: Julio Shaw * Referring Physician: Self, Referred * Performed By: Rita Vicente RCS * * Reason For Study: Elevated Troponin, A-FIB, NSR, A-Flutter * BSA: 2.4 m2 * -- Conclusions -- * Left ventricular systolic function is normal. * No regional wall motion abnormalities noted. * Ejection Fraction = 65-70%. * There is moderate concentric left ventricular hypertrophy. * Diastolic dysfunction is suggested. * There is mild mitral regurgitation. * There is mild tricuspid regurgitation. Procedure Details * A complete two-dimensional transthoracic echocardiogram was performed (2D, M-mode, Doppler and color flow Doppler). Left Ventricle * The left ventricular cavity is small. * There is moderate concentric left ventricular hypertrophy. * Ejection Fraction = 65-70%. * Left ventricular systolic function is normal. * No regional wall motion abnormalities noted. Right Ventricle * The right ventricle is not well visualized. * The right ventricular systolic function is normal as assessed by tricuspid annular plane systolic excursion (TAPSE) (normal >1.5 cm). Atria * The left atrium is moderately dilated. * The right atrium is mildly dilated. * There is no evidence of atrial septal defect, but resolution does not allow assessment for a patent foramen ovale. Mitral Valve * The mitral valve is grossly normal. * There is no mitral valve stenosis. * There is mild mitral regurgitation. Tricuspid Valve * The tricuspid valve is not well visualized, but is grossly normal. * There is no tricuspid stenosis. * There is mild tricuspid regurgitation. Aortic Valve * The aortic valve is trileaflet. * The aortic valve opens well. * Aortic valve sclerosis mild, without significant aortic valvular stenosis. * No aortic regurgitation is present. Pulmonic Valve * The pulmonary valve is not well seen, but the Doppler examination is normal without significant regurgitation or stenosis. Great Vessels * The aortic root is normal size. * The pulmonary is not well visualized. Pericardium/Pleural * There is no pericardial effusion. Great Vessels * Inferior vena cava not well visualized. Left Ventricular Diastolic Function * Diastolic dysfunction is suggested. MMode 2D Measurements and Calculations IVSd 1.2 cm IVSs 1.6 cm LVIDd 5.4 cm LVIDs 3.3 cm LVPWd 1.1 cm LVPWs 1.6 cm IVS/LVPW 1.0 FS 37.9 % EDV(Teich) 140.8 ml ESV(Teich) 45.7 ml EF(Teich) 67.6 % EDV(cubed) 156.7 ml ESV(cubed) 37.5 ml EF(cubed) 76.1 % % IVS thick 36.7 % % LVPW thick 43.3 % LV mass(C)d 247.7 grams LV mass(C)dI 102.5 grams/m\S\2 LV mass(C)s 203.7 grams LV mass(C)sI 84.3 grams/m\S\2 SV(Teich) 95.1 ml SI(Teich) 39.4 ml/m\S\2 SV(cubed) 119.2 ml SI(cubed) 49.4 ml/m\S\2 Ao root diam 3.9 cm Ao root area 11.8 cm\S\2 ACS 1.9 cm LA dimension 5.0 cm asc Aorta Diam 3.1 cm LA/Ao 1.3 EDV(MOD-sp4) 101.0 ml ESV(MOD-sp4) 30.0 ml EF(MOD-sp4) 70.3 % EDV(MOD-sp2) 152.0 ml ESV(MOD-sp2) 72.0 ml EF(MOD-sp2) 52.6 % SV(MOD-sp4) 71.0 ml SI(MOD-sp4) 29.4 ml/m\S\2 SV(MOD-sp2) 80.0 ml SI(MOD-sp2) 33.1 ml/m\S\2 Doppler Measurements and Calculations MV E max nancy 81.7 cm/sec MV P1/2t max nancy 97.1 cm/sec MV P1/2t 75.8 msec MVA(P1/2t) 2.9 cm\S\2 MV dec slope 374.8 cm/sec\S\2 MV dec time 0.28 sec Ao V2 max 121.5 cm/sec Ao max PG 5.9 mmHg Ao max PG (full) 2.9 mmHg LV V1 max PG 3.0 mmHg LV V1 max 87.0 cm/sec PA V2 max 89.5 cm/sec PA max PG 3.2 mmHg TR max nancy 242.2 cm/sec
--- NOTE | 2017-10-11 14:56 | Discharge Instructions ---
Discharge Instructions Date of Service October 11, 2017. Admission Reason for Admission: Chest pain, palpitations Discharge Discharge Diagnosis / Problem: Chest pain, palpitations Discharge Goals Goal(s): Decrease discomfort, Improve function Activity Recommendations Activity Limitations: resume your previous activity . Instructions / Follow-Up Instructions / Follow-Up Medications: no changes, vitals have been stable Chest pain: no ischemic changes on EKG, troponin negative x 3 sets echocardiogram shows EF preserved, no regional wall motion abnormalities case reviewed by Dr. 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, no need for specific hospital follow up since this was just an observation Current Hospital Diet Patient's current hospital diet: AHA Diet (Heart Healthy), Diabetes Type 2 Diet Discharge Diet Recommended Diet: AHA Diet (Heart Healthy), Diabetes Type 2 Diet Pending Studies Studies pending at discharge: no Laboratory Results Hemoglobin A1c Test 08/15/17 12:24 Range/Units Estimated Average Glucose 128 mg/dl Hemoglobin A1c 6.1 H 4.5-5.6 % Lipid Panel Test 08/15/17 12:24 Range/Units Triglycerides Level 38 0-150 mg/dl Cholesterol Level 157 0-200 mg/dl HDL Cholesterol 54 mg/dl Cholesterol/HDL Ratio 2.9 LDL Cholesterol, Calculated 95 mg/dl Medical Emergencies . Who to Call and When: Medical Emergencies: If at any time you feel your situation is an emergency, please call 911 immediately. . Non-Emergent Contact Non-Emergency issues call your: Primary Care Provider Call Non-Emergent contact if: you have any medication questions . . "Provider Documentation" section prepared by Sebastian Healy PA Drug Monitoring Program Search Results: no issues identified
[2017-10-11 15:28] LABS: CKMB 1.8 ng/ml (0.5-3.6)
[2017-10-11] MEDS ORDERED: WARFARIN SOD 7.5 MG TAB PO SCH (16:00)
--- NOTE | 2017-10-11 20:56 | CARDIOLOGY CONSULTATION ---
DATE OF CONSULTATION: 10/11/2017 Cardiology consultation. PERTINENT HISTORY: Mr. Herring is a 67-year-old white male with a complex past medical history who is well known to me from the outpatient setting. The patient was admitted late yesterday after an episode of rapid pulse, and a sensation of "fluttering" in his chest. The patient was found to have a mildly elevated troponin and therefore, this consultation was ordered. Patient was in his usual state of health until yesterday afternoon. The patient was at our institution having a prothrombin time drawn. On his way out to the car, he noticed the abrupt onset of a "fluttering" in his chest and a rapid pulse rate. The patient opted to proceed home, however, his symptoms persisted. He presented to an urgent care office to check an EKG which had the suggestion of some ischemic changes, and therefore, patient was sent to our Emergency Room. At no time did the patient experience some jimmy chest discomfort. He has been exercising lately water walking and riding a stationary bicycle. He has not experienced any exertional angina pectoris or limiting dyspnea. He further denies syncope, presyncope, PND, orthopnea, changes in lower extremity edema, and claudication. Currently, the patient is resting comfortably in bed without complaints. We have discussed the fact he is currently in atrial flutter with a controlled ventricular response. PAST MEDICAL HISTORY: 1. Coronary artery disease. 2. Coronary artery bypass surgery -- 1993. 3. Second coronary artery bypass surgery -- 03/2011. 4. Hypertension. 5. Moderate left ventricular hypertrophy. 6. Hypercholesterolemia. 7. Paroxysmal atrial fibrillation/flutter. 8. Amiodarone-induced thyroid disease. 9. Nonalcoholic cirrhosis. 10. Chronic hepatic encephalopathy. 11. Nonmalignant hepatic lesion. 12. Alpha thalassemia minor. 13. Diabetes mellitus. 14. Diabetic polyneuropathy. 15. Esophageal varices, grade 1. 16. Hiatal hernia. 17. Obesity. 18. Obstructive sleep apnea. 19. Venous insufficiency. 20. Numerous lumbar back surgeries. 21. Lumbar hardware infection -- 08/2017. 22. BPH. MEDICATIONS: 1. Diltiazem 180 mg daily. 2. Propranolol 20 mg t.i.d. 3. Lisinopril 10 mg daily. 4. Imdur 120 mg per day. 5. Aspirin 81 mg per day. 6. Magnesium oxide 400 mg daily. 7. Coumadin 7.5 mg daily. 8. Flomax 0.4 mg at bedtime. 9. Zetia 10 mg q.a.m. 10. Insulin 10 units subQ at bedtime. 11. Wellbutrin 100 mg daily. 12. Cymbalta 30 mg per day. 13. Folic acid 1 mg per day. 14. Lactulose 10 grams t.i.d. 15. Multivitamin daily. 16. Protonix 40 mg per day. 17. Xifaxan 200 mg b.i.d. ALLERGIES: None. ADVERSE DRUG REACTION 1. SIMVASTATIN. 2. SPIRONOLACTONE. SOCIAL HISTORY: The patient is and lives with his . 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 Former smoker. Does not use alcohol. FAMILY HISTORY: Both parents from a cerebrovascular accident. No early coronary artery disease. REVIEW OF SYSTEMS: A 10-point review of systems was negative except for described above. PHYSICAL EXAMINATION: GENERAL: This is a morbidly obese black male seated at the bedside without complaints. VITAL SIGNS: Blood pressure is 130/70 with an irregular pulse of 57. Respiratory rate is 18. The patient is afebrile at 36.9 degrees Celsius, saturation is 95% on room air. HEENT: Negative. NECK: Supple with full carotid upstrokes. No carotid bruits. Jugular venous pressure is flat at 90 degrees. There is no thyromegaly. CARDIOVASCULAR: Reveals a regular rhythm with distant heart sounds. No obvious murmurs. CHEST: Reveals a well-healed midline scar. LUNGS: Clear without rales, rhonchi, or wheeze. ABDOMEN: Obese without bruits. EXTREMITIES: Reveal intact radial artery pulse bilaterally. There is trace pretibial edema noted. LABORATORY DATA: CBC notes hemoglobin 11.3, hematocrit 33.3, white count 3.5, and platelet count 97,000. Electrolytes note a sodium of 144, potassium 3.3, chloride 112, bicarbonate 20, BUN 7, creatinine 0.65, glucose 72. Three troponins are mildly elevated at, 0.055, 0.051, and 0.049. The CKs are normal at 243 and 234 with MB fractions of 1.4 and 1.8 respectively. EKG notes atrial flutter with a controlled ventricular response. There is an incomplete right bundle-branch block and an old inferior MN pattern. T-wave inversion in the anteroseptal leads. This tracing is unchanged from #1 performed on 03/17/2017. Chest x-ray notes cardiomegaly but no acute disease. IMPRESSION: Mr. Herring was admitted yesterday in atrial flutter with a controlled ventricular response on the monitor. By his report, he was going rapidly for a considerable period of time. This may explain his mildly elevated troponin if he was going rapidly in the face of his known moderate left ventricular hypertrophy. No evidence of myocardial ischemia at this time. The patient would not be a candidate for a third bypass surgery. Would continue to follow conservative medical care. PLAN: 1. Continue usual outpatient medications. 2. Ambulate within the hallways. 3. Stable for hospital discharge today.
[2017-10-11] MEDS ORDERED: TAMSULOSIN HCL 0.4 MG CAP PO SCH (21:00)
[2017-10-11] MEDS ORDERED: INSULIN GLARGINE SOLOSTAR 100 UNITS/ML 3 ML PEN SC SCH (21:00)
--- NOTE | 2017-10-12 08:50 | Discharge Summary ---
Discharge Summary Date of Service October 12, 2017. Discharge Summary Admission Date: Oct 10, 2017 at 22:50 Discharge Date: October 11, 2017 Discharge Disposition: Home Principal Diagnosis: Chest pain, palpitations Problems/Secondary Diagnoses: SWIFT CAD with h/o CABG DM with hypoglycemia Immunizations: Have You Had Influenza Vaccine: Yes Influenza Vaccine Date: May 17, 2013 History of Tetanus Vaccine?: utd History of Pneumococcal: Yes Pneumococcal Date: May 17, 2013 History of Hepatitis B Vaccine: Unknown Procedures: none Consultations: Cardiology Medication Reconciliation Continued Medications: Aspirin (Aspirin Chewable) 81 Mg Chew 81 MG PO QAM Bupropion HCl (Bupropion HCl Sr) 100 Mg Tabcr 100 MG PO QAM Diltiazem Hcl Ext Rel (Tiazac) 180 Mg Capcr 180 MG PO QAM, CAP Duloxetine HCl (Cymbalta) 30 Mg Cap 1 CAP PO QAM, CAP 2 Refills Dutasteride (Avodart) 0.5 Mg Cap 0.5 MG PO HS, CAP Eplerenone (Inspra) 25 Mg Tab 1 TAB PO QAM Ezetimibe (Zetia) 10 Mg Tab 10 MG PO QAM, TAB Folic Acid (Folvite) 1 Mg Tab 1 MG PO DAILY AFTERNOON, TAB Furosemide (Lasix) 40 Mg Tab 40 MG PO QAM, TAB Insulin Glargine (Lantus) 100 Unit/Ml Inj 10 UNITS SC HS, VIAL Isosorbide Mononitrate Ext Rel (Imdur Ext Rel) 120 Mg Ertab 120 MG PO QAM, TAB Lactulose (Chronulac) 10 Gm/15 Ml Syrp 1 DOSE PO TID Lisinopril (Prinivil) 10 Mg Tab 10 MG PO QAM, TAB Magnesium Oxide (Mag-Ox) 400 Mg Tab 400 MG PO DAILY AFTERNOON, TAB Multivitamin (Multivitamin) Tab 1 TAB PO QAM, TAB Nitroglycerin (Nitrostat) 0.4 Mg Sub 0.4 MG UT PRN, BTL [place]-3 Fatty Acids (Fish Oil) 1 Cap Cap 1 CAP PO BID Ondansetron Odt (Zofran Odt) 8 Mg Soltab 4 MG SL Q6H PRN for Nausea, #30 TAB Oxycodone HCl (Oxycodone HCl) 5 Mg Tab 10 MG PO Q6 PRN for Pain, #30 TAB Pantoprazole (Protonix) 40 Mg Tab 40 MG PO QAM, #30 TAB Propranolol (Inderal) 20 Mg Tab 20 MG PO TID, #90 TAB Rifaximin (Xifaxan) 200 Mg Tab 200 MG PO BID, TAB Tamsulosin HCl (Tamsulosin HCl) 0.4 Mg Cap 1 CAP PO HS Warfarin Sodium (Coumadin) 5 Mg Tab 7.5 MG PO 3XWK, TAB Warfarin Sodium (Coumadin) 5 Mg Tab 10 MG PO 4XWK, TAB Discharge Exam Patient feeling well, no further chest pain while admitted. Vitals stable. Reviewed labs, troponin negative. Discussed with Dr. Root, he reviewed echocardiogram, was normal, no acute changes. Cleared to discharge to home. Review of Systems: Constitutional: No fever, No chills, No sweats, No weight loss, No weakness , No fatigue, No problem reported Eyes: No worsening of vision, No eye pain, No redness, No discharge, No diplopia, No problem reported ENT: No hearing loss, No unusual epistaxis, No nasal symptoms, No sore throat, No tinnitus, No dental problems, No trouble swallowing, No problem reported Respiratory: No cough, No sputum, No wheezing, No shortness of breath, No dyspnea on exertion, No dyspnea at rest, No hemoptysis, No problem reported Cardiovascular: No chest pain, No orthopnea, No PND, No edema, No claudication, No palpitations, No problem reported Abdomen: No pain, No nausea, No vomiting, No diarrhea, No constipation, No GI bleeding, No problem reported Musculoskeletal: No joint pain, No muscle pain, No swelling, No calf pain, No problem reported Genitourinary - Male: No hematuria, No dysuria, No urinary frequency, No urinary urgency Neurologic: No memory loss, No paralysis, No weakness, No numbness/tingling , No vertigo, No balance problems, No problem reported Psychiatric: No depression symptoms, No anhedonism, No anxiety, No insomnia , No substance abuse, No problem reported Endocrine: No fatigue, No excessive thirst, No excessive urination, No problem reported Hematologic / Lymphatic: No abnormal bleeding/bruising, No clotting problems , No swollen lymph nodes, No night sweats, No problem reported Integumentary: No rash, No itch, No new/changing skin lesions, No color change, No bleeding, No problem reported Physical Exam: General Appearance: no apparent distress, + obese Eyes: normal inspection, EOMI, sclerae normal ENT: normal ENT inspection, hearing grossly normal, pharynx normal Neck: supple, no adenopathy, no JVD, trachea midline Respiratory/Chest: chest non-tender, lungs clear, normal breath sounds, no respiratory distress, no accessory muscle use Cardiovascular: regular rate, rhythm, no edema, no gallop, no JVD, no murmur , normal peripheral pulses Abdomen / GI: normal bowel sounds, non tender, soft, no organomegaly Extremities: normal inspection, no calf tenderness, normal capillary refill , no pedal edema, normal range of motion, pelvis stable Neurologic/Psychiatric: head filter press tender II-XII nml as tested, no motor/sensory deficits , alert, normal mood/affect, normal reflexes, oriented x 3 Skin: normal color, warm/dry, no rash Lymphatic: no adenopathy Hospital Course 67 yo male with history of CAD and CABG x 2, chronic diastolic heart failure, atrial fibrillation and flutter, presented with chest pain/pressure and palpitations on exertion, better with rest. No ST changes on EKG and troponin negative. Echo reviewed, was same as prior, no wall motion abnormalities, EF preserved. Discussed with loren Gonzalez to go home. Elevated troponin/epigastric pain/chest pain/palpitations-- troponin negative x 3 sets, no ischemic changes on EKG, echo normal d/c to home on Inderal, Cardizem, Nitro SL, Imdur, aspirin Atrial fibrillation chronic, rates controlled, bradycardic at rest, rates in 80-90's on exertion continue Cardizem, Coumadin for AC, INR was 3.0 on day of discharge Diabetes mellitus/episodes of hypoglycemia day of admission sugars stable during stay, held Lantus SWIFT/liver cirrhosis Continue Inderal as noted above, Xifaxan 20 mg p.o. twice daily, lactulose 10 mg syrup p.o. 3 times daily. was worked up for possible hepatocellular carcinoma, however, lesion was just a hemangioma BPH-- Continue Avodart 5 mg p.o. at bedtime and tamsulosin 0.4 mg p.o. at bedtime. Hyperlipidemia-- Continue Zetia 10 mg p.o. daily. Anxiety with depression-- Continue Cymbalta 30 mg daily, bupropion SR 100 mg p.o. every morning. Chronic pain syndrome/status post lumbar surgery-- Continue oxycodone 5 mg p.o. every 6 hours as needed. GERD--continue pantoprazole 40 mg p.o. every morning. Total Time Spent: Greater than 30 minutes This includes examination of the patient, discharge planning, medication reconciliation, and communication with other providers. Discharge Instructions Please refer to the electronic Patient Visit Report (Discharge Instructions) for additional information. Follow-Up keep previously scheduled appointments Additional Copies To Renny Root M.D.; Wayne Florez D.O.
== END 2017-10-11 15:30 | disposition home or self-care (01) ==
LOC: EDBD 20:52 → C.EDB 20:53 → C.MSICU 22:50 → ENRESERV 23:01
PROVIDERS: ADMIT Hospitalist; ATTEND Internal Medicine
DX: R07.9 Chest pain, unspecified (principal); R00.2 Palpitations; K75.81 Nonalcoholic steatohepatitis (NASH); I25.10 Atherosclerotic heart disease of native coronary artery without angina pectoris; Z95.1 Presence of aortocoronary bypass graft; E11.649 Type 2 diabetes mellitus with hypoglycemia without coma; I48.91 Unspecified atrial fibrillation; I48.92 Unspecified atrial flutter; N40.0 Benign prostatic hyperplasia without lower urinary tract symptoms; E78.5 Hyperlipidemia, unspecified; F41.8 Other specified anxiety disorders; G89.4 Chronic pain syndrome; Z79.82 Long term (current) use of aspirin; Z79.4 Long term (current) use of insulin; Z79.01 Long term (current) use of anticoagulants; Z79.899 Other long term (current) drug therapy; Z87.891 Personal history of nicotine dependence; Z82.3 Family history of stroke; Z88.8 Allergy status to other drugs, medicaments and biological substances

== ENCOUNTER → 2017-12-29 | Outpatient (CLI) | payer BC ==
[~2017-12-29] VITALS: Ht 177.8 cm; Wt 129.4 kg
[~2017-12-29] MED LIST changes: -LACT10SO17 PO; +LACT10SO3 PO
[2017-12-29 13:21] VITALS: BP 174/96; PULSE 74; Ht 177.8 cm; Wt 129.4 kg
== END | disposition home or self-care (01) ==
LOC: C.NEUR 13:02
PROVIDERS: ATTEND Physician Assistant
DX: G47.30 Sleep apnea, unspecified (principal); Z88.8 Allergy status to other drugs, medicaments and biological substances

== ENCOUNTER 2018-11-13 08:34 | Inpatient (IN) ==
[2018-11-13] MEDS ORDERED: LIDOCAINE 5% 1 PATCH TD STA (08:51)
[2018-11-13] MEDS ORDERED: ONDANSETRON INJ 2 MG/ML 2 ML VIAL IV STA (08:51)
[2018-11-13] MEDS: HYDROmorphone INJ 1 MG/ML SYRINGE IV PRN ×2 (09:15→10:47)
[2018-11-13 09:29] LABS: INR 2.8 (0.9-1.1)
[2018-11-13 09:43] LABS: Eosinophils # (auto) 0.05 K/uL (0-0.5); Eosinophils % (auto) 1.3 %; Giant Platelets 2+; Hematocrit (blood only) 27.1 % (42-52); Hemoglobin 7.8 g/dL (14.0-18.0); Hypochromasia Present; Lymphocytes # (auto) 0.69 K/uL (1.2-3.4); Lymphocytes % (auto) 18.6 %; Mean Corpuscular Hgb Conc 28.8 g/dL (32-36); Mean Corpuscular Volume 59.6 fL (80-100); Microcytosis Present; Monocytes # (auto) 0.16 K/uL (0.11-0.59); Monocytes % (auto) 4.3 %; Neutrophils # (auto) 2.81 K/uL (1.4-6.5); Neutrophils % (auto) 75.8 %; Platelet Count 127 K/uL (130-400); Platelet Estimate Decreased (Normal); RDW Coefficient of Variation 22.8 % (11.5-14.5); RDW Standard Deviation 48.3 fL (36.4-46.3); Red Blood Count 4.55 M/uL (4.7-6.1); Target Cells 2+; White Blood Count 3.71 K/uL (4.8-10.8)
[2018-11-13 09:44] LABS: Albumin Level 2.8 gm/dl (3.4-5.0); BUN Creatinine Ratio 13.2 (10-20); Calcium 8.3 mg/dl (8.5-10.1); Creatinine Clr Calc Pharmacy 122.6 ml/min; Est GFR (African American) 106.3; Est GFR (Non-African American) 91.7; Potassium 4.5 mmol/L (3.5-5.1)
[2018-11-13 09:45] LABS: Albumin Globulin Ratio 0.6 (0.9-2); Bilirubin,Total 0.7 mg/dl (0.2-1); Creatine Kinase MB 1.8 ng/ml (0.5-3.6); Globulin 4.4 gm/dl (2.5-4.0); Total Protein 7.2 gm/dl (6.4-8.2); Troponin I 0.032 ng/ml (0-0.045)
[2018-11-13] MEDS ORDERED: SODIUM CHLORIDE 0.9% 250 ML IV PRN (09:52)
--- NOTE | 2018-11-13 09:54 | CT Scan Report ---
CT pelvis wo con CLINICAL HISTORY: 68 years-old Male presenting with Pt c/o left sided hip pain, low back pain. TECHNIQUE: Multidetector CT of the pelvis was performed without the use of intravenous contrast. IV c ontrast: None. One or more dose lowering techniques were used consistent with the principles of ALARA (as low as reasonably achievable), including automatic exposure control, mA or kV adjustment to carol vidual patient size, and/or use of iterative reconstruction. COMPARISON: Correlation made to CT of the abdomen and pelvis from 07/03/2018. CT DOSE (mGy.cm): The estimated cumulative dose is 1765.43 mGy.cm. FINDINGS: Road Patcher topogram: Median sternotomy wires and mediastinal surgical clips. Lumbar fusion hardware. Vasec jaskaran clips. Bilateral hip joints congruent. Degenerative changes of the bilateral hips evidenced by subchondral c ystic change involving the femoral heads and superior acetabula. Mild joint space loss superiorly. Os teophytosis along the inferior femoral heads, right greater than left, to a mild degree. No evidence of fracture of the femoral heads or necks. Partially visualized lumbar fusion hardware with extensive changes in the lumbar spine including eros irvin changes and endplate sclerosis at L5-S1 as on prior CT. Lucency surrounds the left transpedicular screw at S1. Interbody spacer noted at L4-5. Partially visualized L4 laminectomy. The sacrum is otherwise intact. Sacroiliac joints intact though degenerative changes are noted bilate rally, right greater than left.. The bony pelvis is intact without evidence of fracture. Limited evaluation of the soft tissues of the pelvis demonstrate an enlarged prostate. Moderate stool burden. Normal appendix. Atherosclerosis. IMPRESSION: 1. No acute osseous injury of the pelvis. 2. Degenerative changes of the bilateral hips, which are fairly symmetric and overall mild to modera te. 3. Extensive degenerative changes of the lumbar spine. Erosive changes and endplate sclerosis at L5- S1 is nonspecific, although chronic osteomyelitis is not excluded. Additionally, associated lucency s urrounding the left S1 pedicle screw suggests loosening or infection. This is also similar to prior C T from June. 4. Prostatomegaly. Electronically signed by: Percy Vasquez M.D. 11/13/2018 9:53 AM
--- NOTE | 2018-11-13 10:03 | CT Scan Report ---
CT lumbar spine wo con HISTORY: 68 years-old Male Pt c/o low back pain acute low back pain without reported trauma COMPARISON: CT pelvis of same day, CT abdomen and pelvis 07/03/2018 TECHNIQUE: Multiple axial CT images of the lumbar spine were obtained without the use of IV contrast. A dose lowering technique was used consistent with the principals of BRANDY. FINDINGS: Large cystic lesion of the left kidney is partially imaged. Extensive calcification of the aorta and iliac arteries. The paraspinal tissues appear unremarkable. No adenopathy. Postoperative changes with laminectomy with posterior interbody carlos alberto and screw fusion at L3-S1. Discectomy changes at L4-L5. The re is lucency surrounding the left greater than right S1 screws suggestive of hardware loosening, not significantly changed from 07/03/2018. No evidence of associated hardware fracture. Unchanged olamide rodney deformities at L1 and L2 with associated Schmorl's node formations. Unchanged mild anterior endp late wedging at L4 with subtle unchanged superior endplate L3 compression deformity. No acute fractur e or subluxation identified involving the vertebral bodies. Demineralized appearance the bones. Multi level spondylitic spurring with severe facet arthrosis. Acute appearing fractures are noted about the right L1 and L2 transverse processes, new from comparison. Additionally, there is a subacute appeari ng nondisplaced fracture about the posterior right 12th rib which also appears to be new from compari son. Chronic sclerotic appearance of the L5 and S1 vertebral bodies. IMPRESSION: 1. Acute appearing nondisplaced fractures about the right L1 and L2 transverse processes with subacut e appearing nondisplaced fracture about the posterior right 12th rib, new from 07/03/2018. 2. Prior laminectomy with posterior interbody carlos alberto and screw fusion redemonstrated at L3-S1. Lucency s urrounding the pedicle screws, left greater than right at S1 appears unchanged and is suggestive of h ardware loosening. 3. Chronic compression deformities as above, notably at L1 and L2. The above report was generated using voice recognition software. It may contain grammatical, syntax o r spelling errors. Electronically signed by: Kelechi Clark M.D. 11/13/2018 10:02 AM
--- NOTE | 2018-11-13 10:58 | History & Physical Report ---
Date of Service November 13, 2018 Assessment & Plan (1) Fracture of lumbar spine: The patient denies recent falling or trauma but there is evidence of transverse process fracture on the right side at L1 and L2. Possible loosening of left S1 pedicle screw. Orthopedic consultation with Dr. Jung has been requested since they saw him recently bedrest. Pain control measures Present on Admission?: Yes (2) Pancytopenia: The patient states he has thalassemia trait. No evidence of overt GI blood loss. Will consult hematology for further evaluation. Serial labs Present on Admission?: Yes (3) Osteomyelitis of lumbar spine: Suggestion of osteomyelitis at the left S1 level in the region of the loose pedicle screw. Infectious disease consultation. Obtain blood cultures. Start vancomycin and cefepime. Discontinue antibiotics if osteomyelitis is ruled out Present on Admission?: Yes (4) Diabetes: The patient is insulin-dependent. ADA diet. Continue Basaglar. Sliding scale coverage as needed (5) Chronic systolic CHF (congestive heart failure): Appears to be stable. Chest x-ray is pending. 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 Continue current medication management (7) Opioid dependence: He takes oxycodone at home. He will receive parenteral narcotics for pain control measure while hospitalized until he is able to be switched back to oral medication (8) Morbid obesity: BMI greater than 40 History of Present Illness Chief Complaint: Severe back pain, ambulatory dysfunction Primary Care Provider: Wayne Florez DO 68-year-old black male with multiple medical problems. He has had lumbar spine surgery on 3 occasions with instrumentation. He has developed severe lumbar area pain over the past several days with the inability to ambulate. He denies any recent falls or trauma. However the CT scan reveals evidence of a right L1- L2 transverse process fracture and a posterior right 12th rib fracture. There is some evidence of left S1 screw loosening with possible associated osteomyelitis. He is pancytopenic which appears to be chronic. He states he has thalassemia trait but does not see a orthodontic laboratory technician in this area. He has seen Dr. Bermudez in orthopedics recently who will be consulted. Hematology consult and infectious disease consult will be requested. He has been started on vancomycin and cefepime for now. No overt GI bleeding. Fecal occult blood is pending. He is on chronic Coumadin therapy for paroxysmal atrial fibrillation. He currently is in normal sinus rhythm. INR 2.8. He alternates Coumadin 10 mg and 7.5 mg. He will be kept on 7.5 mg daily with INR monitor daily. He also is opioid dependent taking oxycodone for chronic pain control. Parenteral narcotics will be administered while hospitalized for pain control. He has requested full CODE STATUS Allergies Allergy/AdvReac Type Severity Reaction Status Date / Time simvastatin AdvReac Intermediate GI UPSET- Verified 11/13/18 08:58 OK WITH LIPITOR spironolactone AdvReac Mild NIPPLES Verified 11/13/18 08:58 HURT pioglitazone AdvReac Unknown GI UPSETS Verified 11/13/18 08:58 Home Medications Home Medications Medication Instructions Recorded Confirmed Type Xifaxan 550 mg PO BID PRN 05/26/18 11/13/18 History amoxicillin 4 tab PO DIRECTED PRN 05/26/18 11/13/18 History aspirin [Aspirin Low Dose] 81 mg PO QAM 05/26/18 11/13/18 History baclofen 20 mg PO TID PRN 05/26/18 11/13/18 History diltiazem HCl 180 mg PO QAM 05/26/18 11/13/18 History doxycycline monohydrate 100 mg PO BID 05/26/18 11/13/18 History duloxetine 60 mg PO QAM 05/26/18 11/13/18 History eplerenone 25 mg PO QAM 05/26/18 11/13/18 History ezetimibe 10 mg PO QPM 05/26/18 11/13/18 History folic acid 1 mg PO QDL 05/26/18 11/13/18 History furosemide 40 mg PO QAM 05/26/18 11/13/18 History isosorbide mononitrate 120 mg PO QAM 05/26/18 11/13/18 History lactulose 15 ml PO TID 05/26/18 11/13/18 History lisinopril 10 mg PO QPM 05/26/18 11/13/18 History magnesium oxide 1 cap PO QDL 05/26/18 11/13/18 History multivitamin 1 tab PO QDL 05/26/18 11/13/18 History nitroglycerin 1 tab SUBLINGUAL DIRECTED PRN 05/26/18 11/13/18 History omega-3 acid ethyl esters 1 cap PO BID 05/26/18 11/13/18 History ondansetron 4 mg PO Q6 PRN 05/26/18 11/13/18 History pantoprazole 80 mg PO QAM 05/26/18 11/13/18 History potassium chloride 20 meq PO BID 05/26/18 11/13/18 History propranolol 20 mg PO TIDM 05/26/18 11/13/18 History tamsulosin 0.4 mg PO HS 05/26/18 11/13/18 History bupropion HCl [Wellbutrin SR] 100 mg PO BID 07/16/18 11/13/18 History dutasteride [Avodart] 0.5 mg PO DAILY 07/16/18 11/13/18 History insulin glargine [Basaglar KwikPen 10 unit SUBCUT QPM 07/16/18 11/13/18 History U-100 Insulin] Medical Marijuana 1 dose INHALATION UD PRN 11/13/18 11/13/18 History diclofenac sodium 1 g TOPICAL QID 11/13/18 11/13/18 History insulin glargine [Lantus Solostar 10 unit SUBCUT HS 11/13/18 11/13/18 History U-100 Insulin] lorazepam 0.5 mg PO DAILY PRN 11/13/18 11/13/18 History oxycodone 10 mg PO DAILY PRN 11/13/18 11/13/18 History warfarin 5 mg PO BID 11/13/18 11/13/18 History Past Med/Surg History Medical History Esophageal varices Lumbar canal stenosis (05/15/13) Diabetes (Chronic) Anemia (Chronic) HTN (hypertension) (Chronic) Hyperlipidemia (Chronic) Atrial flutter Anemia Anxiety and depression Atrial fibrillation Diabetes Enlarged prostate Essential tremor GERD (gastroesophageal reflux disease) Gout High cholesterol Hx of myocardial infarction 1994 Hypertension Liver failure NOT CANDIDATE FOR LIVER TRANSPLANT - Sleep apnea USES CPAP Vomiting PATIENT DESCRIBES HE HAS BEEN VOMITING EVERY DAY AND PAIN IN BACK Surgical History History of back surgery X3 - 2 FOR FUSIION AND LAST TO CLEAN UP INFECTION History of cardiac cath X4 - [facility] - LAST ONE 02/2011 ? [facility] Hx of arthroscopic knee surgery X4 RIGHT Hx of colonoscopy Hx of heart bypass surgery X2 - 1994 AND 2011 - [facility] Hx of vasectomy Social History Preferred Language: Turkmen Communication Ability: Effective Beliefs That Will Affect Care: None Current Living Situation: Spouse Feels Safe at Home: Yes Smoking Status: Former smoker Hx Alcohol Use: No Hx Substance Use: Yes substance use type: marijuana Review of Systems Review of Systems: All systems reviewed & are unremarkable except as noted in HPI & below Musculoskeletal: + back pain; no neck pain and no joint pain Severe lumbar area pain limiting ambulatory capacity Physical Exam Constitutional: + morbidly obese; no acute distress, no altered mental status and no language barrier Eyes: PERRL, conjunctivae normal, anicteric sclerae ENMT: external ear and nose normal, oropharynx normal Neck: trachea midline, no thyromegaly Respiratory: normal respiratory effort, lungs clear to auscultation Cardiovascular: Rate/Rhythm: regular rate and regular rhythm Heart Sounds: normal S1, normal S2 and + murmur (Grade 1/6 systolic murmur at the apex) Gastrointestinal (Abdomen): Inspection/Auscultation: abdomen normal to inspection Musculoskeletal: Chronic 2+ edema bilateral lower extremities below the knees. Diffuse bilateral lumbar area tenderness. Well-healed surgical scars Skin: no rashes, warm and dry Neurologic: CN's II-XI intact bilaterally and moves all extremities; no focal motor deficits Results & Data Vital Signs (Past 12 Hours) Vital Signs Temp Pulse Pulse Resp BP BP Pulse Ox 11/13/18 10:22 66 18 148/107 H 99 11/13/18 08:40 36.8 C 67 16 142/80 H 95 Laboratory Results 11/13/18 09:05 11/13/18 09:05
--- NOTE | 2018-11-13 11:01 | XRay Report ---
XR chest 1V portable CLINICAL HISTORY: 68 years-old Male presenting with History of CHF. TECHNIQUE: Portable upright AP view of the chest was obtained. COMPARISON: 07/16/2018. FINDINGS: Median sternotomy wires and mediastinal surgical clips. Atherosclerosis of the aortic arch. Cardiac s ilhouette moderately enlarged. Marked enlargement of pulmonary vasculature increased from prior. Inte rlobular septal thickening suggested as well as bronchial wall thickening. No focal opacity. No large effusion or pneumothorax. Degenerative changes of the thoracic spine. IMPRESSION: 1. Cardiomegaly with volume overload and congestive change. No jimmy pulmonary edema at this time. Electronically signed by: Percy Vasquez M.D. 11/13/2018 11:00 AM
--- NOTE | 2018-11-13 11:16 | History & Physical Report ---
Date of Service November 13, 2018 History of Present Illness Primary Care Provider: Wayne Florez DO Allergies Allergy/AdvReac Type Severity Reaction Status Date / Time simvastatin AdvReac Intermediate GI UPSET- Verified 11/13/18 08:58 OK WITH LIPITOR spironolactone AdvReac Mild NIPPLES Verified 11/13/18 08:58 HURT pioglitazone AdvReac Unknown GI UPSETS Verified 11/13/18 08:58 Home Medications Home Medications Medication Instructions Recorded Confirmed Type Xifaxan 550 mg PO BID PRN 05/26/18 11/13/18 History amoxicillin 4 tab PO DIRECTED PRN 05/26/18 11/13/18 History aspirin [Aspirin Low Dose] 81 mg PO QAM 05/26/18 11/13/18 History baclofen 20 mg PO TID PRN 05/26/18 11/13/18 History diltiazem HCl 180 mg PO QAM 05/26/18 11/13/18 History doxycycline monohydrate 100 mg PO BID 05/26/18 11/13/18 History duloxetine 60 mg PO QAM 05/26/18 11/13/18 History eplerenone 25 mg PO QAM 05/26/18 11/13/18 History ezetimibe 10 mg PO QPM 05/26/18 11/13/18 History folic acid 1 mg PO QDL 05/26/18 11/13/18 History furosemide 40 mg PO QAM 05/26/18 11/13/18 History isosorbide mononitrate 120 mg PO QAM 05/26/18 11/13/18 History lactulose 15 ml PO TID 05/26/18 11/13/18 History lisinopril 10 mg PO QPM 05/26/18 11/13/18 History magnesium oxide 1 cap PO QDL 05/26/18 11/13/18 History multivitamin 1 tab PO QDL 05/26/18 11/13/18 History nitroglycerin 1 tab SUBLINGUAL DIRECTED PRN 05/26/18 11/13/18 History omega-3 acid ethyl esters 1 cap PO BID 05/26/18 11/13/18 History ondansetron 4 mg PO Q6 PRN 05/26/18 11/13/18 History pantoprazole 80 mg PO QAM 05/26/18 11/13/18 History potassium chloride 20 meq PO BID 05/26/18 11/13/18 History propranolol 20 mg PO TIDM 05/26/18 11/13/18 History tamsulosin 0.4 mg PO HS 05/26/18 11/13/18 History bupropion HCl [Wellbutrin SR] 100 mg PO BID 07/16/18 11/13/18 History dutasteride [Avodart] 0.5 mg PO DAILY 07/16/18 11/13/18 History insulin glargine [Basaglar KwikPen 10 unit SUBCUT QPM 07/16/18 11/13/18 History U-100 Insulin] Medical Marijuana 1 dose INHALATION UD PRN 11/13/18 11/13/18 History diclofenac sodium 1 g TOPICAL QID 11/13/18 11/13/18 History insulin glargine [Lantus Solostar 10 unit SUBCUT HS 11/13/18 11/13/18 History U-100 Insulin] lorazepam 0.5 mg PO DAILY PRN 11/13/18 11/13/18 History oxycodone 10 mg PO DAILY PRN 11/13/18 11/13/18 History warfarin 5 mg PO BID 11/13/18 11/13/18 History Past Med/Surg History Medical History Morbid obesity (Chronic) Opioid dependence (Chronic) 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) Chronic systolic CHF (congestive heart failure) (Chronic) Osteomyelitis of lumbar spine (Acute) Fracture of lumbar spine (Acute) Pancytopenia (Chronic) Esophageal varices Lumbar canal stenosis (05/15/13) Diabetes (Chronic) Anemia (Chronic) HTN (hypertension) (Chronic) Hyperlipidemia (Chronic) Atrial flutter Anemia Anxiety and depression Atrial fibrillation Diabetes Enlarged prostate Essential tremor GERD (gastroesophageal reflux disease) Gout High cholesterol Hx of myocardial infarction 1994 Hypertension Liver failure NOT CANDIDATE FOR LIVER TRANSPLANT - Sleep apnea USES CPAP Vomiting PATIENT DESCRIBES HE HAS BEEN VOMITING EVERY DAY AND PAIN IN BACK Surgical History History of back surgery X3 - 2 FOR FUSIION AND LAST TO CLEAN UP INFECTION History of cardiac cath X4 - [facility] - LAST ONE 02/2011 ? [facility] Hx of arthroscopic knee surgery X4 RIGHT Hx of colonoscopy Hx of heart bypass surgery X2 - 1993 AND 2010 - [facility] Hx of vasectomy Social History Preferred Language: Albanian Communication Ability: Effective Beliefs That Will Affect Care: None Current Living Situation: Spouse Feels Safe at Home: Yes Smoking Status: Former smoker Hx Alcohol Use: No Hx Substance Use: Yes substance use type: marijuana Review of Systems Constitutional: no fever, no chills, no fatigue, no weakness, no weight loss and no weight gain Eyes: no eye pain, no photophobia and no worsening vision Ear, Nose, Mouth, Throat: no ear pain, no hearing loss, no dizziness, no mouth lesions, no sore throat, no hoarseness, no dysphagia and no pain with swallowing Respiratory: no cough, no dyspnea, no dyspnea on exertion, no hemoptysis, no sputum production and no wheezing Cardiovascular: no chest pain, no chest pain at rest, no chest pain with activity, no dyspnea, no dyspnea at rest, no dyspnea on exertion, no orthopnea, no palpitations, no lightheadedness, no syncope and no edema Gastrointestinal: no abdominal pain, no heartburn, no nausea, no vomiting, no pain with swallowing, no dysphagia, no change in bowel habits, no diarrhea/loose stools, no blood in stools and no melena Musculoskeletal: no joint pain, no deformity, no stiffness, no limited range of motion, no muscle weakness and no muscle atrophy Integumentary: no rash, no lesions, no erythema, no pruritus, no urticaria and no unusual bruising Neurologic: no gait abnormality, no unsteadiness, no falls, no localized weakness, no generalized weakness, no paralysis, no loss of sensation, no tingling, no numbness, no paresthesia, no lack of coordination, no abnormal movements, no restless legs, no seizure-like activity, no dizziness, no syncope, no headache(s) and no memory loss Psychiatric: no behavioral changes, no depression, no suicidal ideation, no homicidal ideation, no panic attacks, no auditory hallucinations and no visual hallucinations Endocrine: no fatigue, no polydipsia, no polyuria, no cold intolerance, no heat intolerance and no flushing Hematologic / Lymphatic: no easy bleeding, no easy bruising, no lymphadenopathy, no night sweats and no unexplained weight loss Allergy / Immunological: no lip swelling, no seasonal rhinorrhea, no tongue swelling, no urticaria and no wheezing Results & Data Vital Signs (Past 12 Hours) Vital Signs Temp Pulse Pulse Resp BP BP Pulse Ox 11/13/18 10:22 66 18 148/107 H 99 11/13/18 08:40 36.8 C 67 16 142/80 H 95 Code Status & VTE Plan VTE Prophylaxis Plan VTE Prophylaxis will be ordered: Yes
[2018-11-13] MEDS ORDERED: ONDANSETRON INJ 2 MG/ML 2 ML VIAL ONE (11:59)
[2018-11-13] MEDS ORDERED: ACETAMINOPHEN 325 MG TAB PO PRN (13:15)
[2018-11-13] MEDS ORDERED: RIFAXIMIN 550 MG TABLET PO PRN (13:15)
[2018-11-13] MEDS ORDERED: NITROGLYCERIN 0.6 MG/1 TAB 100 TAB BTL SL PRN (13:15)
[2018-11-13] MEDS ORDERED: ALUMINUM/MAGNESIUM SUSP 30 ML UDC PO PRN (13:15)
[2018-11-13] MEDS ORDERED: VANCOMYCIN CONSULT ACTIVE PRN (13:15)
[2018-11-13] MEDS ORDERED: VANCOMYCIN HCL 1,000 MG in SODIUM CHLORIDE 0.9% 250 ML IV SCH (13:15)
[2018-11-13] MEDS ORDERED: LORazepam 0.5 MG TAB PO PRN (13:15)
[2018-11-13] MEDS ORDERED: CARBOHYDRATES FOR HYPOGLYCEMIA PO PRN (14:15)
[2018-11-13] MEDS ORDERED: GLUCOSE 10 TABS/TUBE PO PRN (14:15)
[2018-11-13] MEDS ORDERED: GLUCOSE 40% GEL 15 GM TUBE PO PRN (14:15)
[2018-11-13] MEDS ORDERED: GLUCAGON FOR INJ 1 MG VIAL IM PRN (14:15)
[2018-11-13] MEDS ORDERED: DEXTROSE 50% 50 ML SYRINGE IV PRN (14:15)
[2018-11-13] MEDS: BACLOFEN 20 MG TAB PO PRN (14:39)
[2018-11-13] MEDS: MULTIVITAMIN TAB PO SCH (14:39)
[2018-11-13] MEDS: MAGNESIUM OXIDE 400 MG TAB PO SCH (14:39)
[2018-11-13] MEDS ORDERED: VANCOMYCIN HCL 2,500 MG in SODIUM CHLORIDE 0.9% 500 ML IV STA (15:00)
--- NOTE | 2018-11-13 15:01 | Emergency Department Note ---
Entered by Ary Canada acting as a scribe for History of Present Illness General Chief complaint: Back Injury/Pain Stated complaint: back pain Time Seen by Provider: 11/13/18 08:37 Source: patient Mode of arrival: EMS Limitations: no limitations History of Present Illness Provider complaint: back pain Onset (ago): day(s) (several) Location: back Radiation: extremity and abdomen Pain Consistency: + other (worsening) Quality: + sharp Relieved By: + other (positional) Treatments prior to arrival: other (morphine) The patient is a 68 year old male who presents to the ER via EMS with complaints of a worsening back pain that began several days ago. The patient describes the pain as sharp and reports the pain is relieved when changing positions. He sta augie that the pain, at its worse, is an 8/10. He notes that the pain does at times radiate to his thighs and abdomen. He reports that he has had back surgery in the past. He states that he was last evaluated by Dr. Bermudez. He notes that he was given morphine en route. He reports that he is currently on Coumadin. He also states that he has had difficulty ambulating and notes he has been using a cane. Home Medications Home Medications Medication Instructions Recorded Confirmed Type Xifaxan 550 mg PO BID PRN 05/26/18 11/13/18 History amoxicillin 4 tab PO DIRECTED PRN 05/26/18 11/13/18 History aspirin [Aspirin Low Dose] 81 mg PO QAM 05/26/18 11/13/18 History baclofen 20 mg PO TID PRN 05/26/18 11/13/18 History diltiazem HCl 180 mg PO QAM 05/26/18 11/13/18 History doxycycline monohydrate 100 mg PO BID 05/26/18 11/13/18 History duloxetine 60 mg PO QAM 05/26/18 11/13/18 History eplerenone 25 mg PO QAM 05/26/18 11/13/18 History ezetimibe 10 mg PO QPM 05/26/18 11/13/18 History folic acid 1 mg PO QDL 05/26/18 11/13/18 History furosemide 40 mg PO QAM 05/26/18 11/13/18 History isosorbide mononitrate 120 mg PO QAM 05/26/18 11/13/18 History lactulose 15 ml PO TID 05/26/18 11/13/18 History lisinopril 10 mg PO QPM 05/26/18 11/13/18 History magnesium oxide 1 cap PO QDL 05/26/18 11/13/18 History multivitamin 1 tab PO QDL 05/26/18 11/13/18 History nitroglycerin 1 tab SUBLINGUAL DIRECTED PRN 05/26/18 11/13/18 History omega-3 acid ethyl esters 1 cap PO BID 05/26/18 11/13/18 History ondansetron 4 mg PO Q6 PRN 05/26/18 11/13/18 History pantoprazole 80 mg PO QAM 05/26/18 11/13/18 History potassium chloride 20 meq PO BID 05/26/18 11/13/18 History propranolol 20 mg PO TIDM 05/26/18 11/13/18 History tamsulosin 0.4 mg PO HS 05/26/18 11/13/18 History bupropion HCl [Wellbutrin SR] 100 mg PO BID 07/16/18 11/13/18 History dutasteride [Avodart] 0.5 mg PO DAILY 07/16/18 11/13/18 History insulin glargine [Basaglar KwikPen 10 unit SUBCUT QPM 07/16/18 11/13/18 History U-100 Insulin] Medical Marijuana 1 dose INHALATION UD PRN 11/13/18 11/13/18 History diclofenac sodium 1 g TOPICAL QID 11/13/18 11/13/18 History insulin glargine [Lantus Solostar 10 unit SUBCUT HS 11/13/18 11/13/18 History U-100 Insulin] lorazepam 0.5 mg PO DAILY PRN 11/13/18 11/13/18 History oxycodone 10 mg PO DAILY PRN 11/13/18 11/13/18 History warfarin 5 mg PO BID 11/13/18 11/13/18 History Allergies Allergy/AdvReac Type Severity Reaction Status Date / Time simvastatin AdvReac Intermediate GI UPSET- Verified 11/13/18 08:58 OK WITH LIPITOR spironolactone AdvReac Mild NIPPLES Verified 11/13/18 08:58 HURT pioglitazone AdvReac Unknown GI UPSETS Verified 11/13/18 08:58 Past Med/Surg History Medical History Morbid obesity (Chronic) Opioid dependence (Chronic) 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) Chronic systolic CHF (congestive heart failure) (Chronic) Osteomyelitis of lumbar spine (Acute) Fracture of lumbar spine (Acute) Pancytopenia (Chronic) Esophageal varices Lumbar canal stenosis (05/15/13) Diabetes (Chronic) Anemia (Chronic) HTN (hypertension) (Chronic) Hyperlipidemia (Chronic) Atrial flutter Anemia Anxiety and depression Atrial fibrillation Diabetes Enlarged prostate Essential tremor GERD (gastroesophageal reflux disease) Gout High cholesterol Hx of myocardial infarction 1994 Hypertension Liver failure NOT CANDIDATE FOR LIVER TRANSPLANT - Sleep apnea USES CPAP Vomiting PATIENT DESCRIBES HE HAS BEEN VOMITING EVERY DAY AND PAIN IN BACK Surgical History History of back surgery X3 - 2 FOR FUSIION AND LAST TO CLEAN UP INFECTION History of cardiac cath X4 - [facility] - LAST ONE 02/2011 ? [facility] Hx of arthroscopic knee surgery X4 RIGHT Hx of colonoscopy Hx of heart bypass surgery X2 - 1993 AND 2010 - [facility] Hx of vasectomy Social History Preferred Language: Latvian Communication Ability: Effective Lace Sewer Required: No Beliefs That Will Affect Care: None Current Living Situation: Spouse Feels Safe at Home: Yes Safety Concerns: Feels Safe At This Time Smoking Status: Light tobacco smoker Tobacco Type: cigarettes Cigarettes Per Day: 15 Do You Dip or Chew Tobacco: No Smoking End Date: 2000 Second Hand Exposure: No Tobacco Cessation Education Requested by Patient: No Hx Alcohol Use: Yes Alcohol type: beer and wine Hx Substance Use: Yes substance use type: marijuana Last Used Substance Other:: presciption for medicinal marijuana Review of Systems See HPI for pertinent positives & negatives. and A total of 10 systems reviewed and were otherwise negative Physical Exam Vital Signs Vital Signs - 24 hr 11/13/18 08:40 11/13/18 10:22 Temperature 36.8 C Temperature Source Oral Sepsis Recent Fever Within 48 Hours No Sepsis New/Unexplained Change in Mental Status No Sepsis Action Taken by Nursing No Action Required Pulse Rate 67 Pulse Rate [Apical] 66 Respiratory Rate 16 18 Blood Pressure 142/80 H Blood Pressure [Left Arm] 148/107 H Blood Pressure Mean 100 Blood Pressure Mean [Left Arm] 120 Pulse Oximetry 95 99 Oxygen Delivery Method Room Air Room Air GENERAL: Awake, alert, well-appearing, in no acute distress HENT: Normocephalic, atraumatic. Oropharynx unremarkable. EYES: Normal conjunctiva. Sclera non-icteric. NECK: Supple. No nuchal rigidity. FROM. No JVD. RESPIRATORY: Clear to auscultation. CARDIAC: Regular rate, normal rhythm. Extremities warm and well perfused. Pulses equal. ABDOMEN: Soft, non-distended. No tenderness to palpation. No rebound or guarding. No masses. RECTAL: Deferred. MUSCULOSKELETAL: Chest examination reveals no tenderness. The back is symmetrical on inspection without obvious abnormality. No joint edema. Tender to L5/S1 area. LOWER EXTREMITIES: Calves are equal size bilaterally and non-tender. No edema. No discoloration. NEURO: Normal sensorium. No sensory or motor deficits noted. SKIN: No rash or jaundice noted. Course 0838: Past medical records reviewed. The patient was evaluated in room B6. A complete history and physical examination was performed. 1005: I reviewed the patient's case with Dr Wei - [facility] Hospitalist. he will evaluate the patient for further management. Administered Medications Baclofen (Lioresal) 20 mg PO TID PRN PRN Reason: Muscle Spasm Stop: 12/13/18 13:14 Last Admin: 11/13/18 14:39 Dose: 20 mg Documented by: [id number] Bupropion HCl (Wellbutrin-Sr) 100 mg PO BID [facility] Stop: 12/13/18 20:59 Last Admin: 11/13/18 20:40 Dose: 100 mg Documented by: [id number] Diclofenac Sodium (Voltaren 1% Top) 1 appln EXT QID [facility] Stop: 12/13/18 13:14 Last Admin: 11/13/18 20:42 Dose: 1 appln Documented by: [id number] Admin: 11/13/18 16:40 Dose: Not Given Documented by: [id number] Admin: 11/13/18 16:35 Dose: 1 appln Documented by: [id number] Ezetimibe (Zetia) 10 mg PO QPM [facility] Stop: 12/13/18 20:59 Last Admin: 11/13/18 20:41 Dose: 10 mg Documented by: [id number] Fish Oil ([place]-3 (Purified Fish Oil)) 1 gm PO BID@1200,2100 [facility] Stop: 12/13/18 20:59 Last Admin: 11/13/18 20:40 Dose: 1 gm Documented by: [id number] Folic Acid (Folvite) 1 mg PO QDL [facility] Stop: 12/13/18 13:14 Last Admin: 11/13/18 16:36 Dose: 1 mg Documented by: [id number] Cefepime HCl 1,000 mg/ Syringe 11.3 mls @ 5.5 mls/min IV Q8H [facility]; Protocol Stop: 12/25/18 14:59 Last Admin: 11/14/18 05:56 Dose: 5.5 mls/min Documented by: [id number] Admin: 11/13/18 22:10 Dose: 5.5 mls/min Documented by: [id number] Admin: 11/13/18 16:34 Dose: 5.5 mls/min Documented by: [id number] Vancomycin HCl 1,750 mg/ (Sodium Chloride) 535 mls @ 200 mls/hr IV Q8H [facility] Stop: 12/26/18 00:00 Last Infusion: 11/14/18 02:13 Dose: 0 mls/hr Documented by: [id number] Admin: 11/13/18 23:32 Dose: 200 mls/hr Documented by: [id number] Promethazine HCl 12.5 mg/ (Sodium Chloride) 50.5 mls @ 202 mls/hr IV Q6H PRN PRN Reason: Nausea And Vomiting Stop: 12/13/18 17:03 Last Infusion: 11/13/18 18:35 Dose: 0 mls/hr Documented by: [id number] Admin: 11/13/18 17:41 Dose: 202 mls/hr Documented by: [id number] Insulin Aspart (Novolog Flexpen) 0 units SC ACHS [facility] Stop: 12/13/18 20:59 Last Admin: 11/13/18 22:08 Dose: 2 units Documented by: [id number] Cosigned by: [id number] Insulin Glargine (Lantus Solostar Pen) 10 units SQ QPM [facility] Stop: 12/13/18 20:59 Last Admin: 11/13/18 21:59 Dose: 10 units Documented by: [id number] Cosigned by: [id number] Lactulose (Chronulac) 10 gm PO TID [facility] Stop: 12/13/18 14:23 Last Admin: 11/13/18 20:38 Dose: 10 gm Documented by: [id number] Admin: 11/13/18 16:34 Dose: 10 gm Documented by: [id number] Lisinopril (Zestril) 10 mg PO QPM [facility] Stop: 12/13/18 20:59 Last Admin: 11/13/18 20:41 Dose: 10 mg Documented by: [id number] Magnesium Oxide (Mag-Ox) 400 mg PO QDL [facility] Stop: 12/13/18 13:14 Last Admin: 11/13/18 14:39 Dose: 400 mg Documented by: [id number] Miscellaneous (Order Awaiting Action) 1 ea N/A QS [facility] Stop: 12/13/18 15:59 Last Admin: 11/13/18 23:32 Dose: Not Given Documented by: [id number] Admin: 11/13/18 16:26 Dose: Not Given Documented by: [id number] Miscellaneous (Order Awaiting Action) 1 ea N/A QS [facility] Stop: 12/13/18 15:59 Last Admin: 11/13/18 23:31 Dose: Not Given Documented by: [id number] Admin: 11/13/18 16:26 Dose: Not Given Documented by: [id number] Multivitamins (Multivitamin Tab) 1 tab PO QDL [facility] Stop: 12/13/18 13:14 Last Admin: 11/13/18 14:39 Dose: 1 tab Documented by: [id number] Ondansetron HCl (Zofran) 4 mg IV Q6H PRN PRN Reason: Nausea Stop: 12/13/18 13:14 Last Admin: 11/13/18 16:42 Dose: 4 mg Documented by: [id number] Potassium Chloride (Klor-Con M20) 20 meq PO BID [facility] Stop: 12/13/18 20:59 Last Admin: 11/13/18 20:41 Dose: 20 meq Documented by: [id number] Propranolol HCl (Inderal) 20 mg PO TIDM [facility] Stop: 12/13/18 13:14 Last Admin: 11/13/18 18:35 Dose: Not Given Documented by: [id number] Admin: 11/13/18 16:34 Dose: 20 mg Documented by: [id number] Tamsulosin HCl (Flomax) 0.4 mg PO HS [facility] Stop: 12/13/18 20:59 Last Admin: 11/13/18 20:42 Dose: 0.4 mg Documented by: [id number] Warfarin Sodium (Coumadin) 7.5 mg PO QPM [facility] Stop: 12/13/18 20:59 Last Admin: 11/13/18 20:38 Dose: 7.5 mg Documented by: [id number] Discontinued Medications Hydromorphone HCl (Dilaudid) 1 mg IV Q15M PRN PRN Reason: Pain Stop: 11/27/18 08:50 Last Admin: 11/13/18 10:47 Dose: 1 mg Documented by: [id number] Admin: 11/13/18 09:15 Dose: 1 mg Documented by: [id number] Vancomycin HCl 2,500 mg/ (Sodium Chloride) 550 mls @ 200 mls/hr IV NOW STA Stop: 11/13/18 17:44 Last Infusion: 11/13/18 19:38 Dose: 0 mls/hr Documented by: [id number] Admin: 11/13/18 16:33 Dose: 200 mls/hr Documented by: [id number] Lidocaine (Lidoderm 5%) 1 patch TD NOW STA Stop: 11/13/18 08:52 Last Admin: 11/13/18 09:15 Dose: 1 patch Documented by: [id number] Miscellaneous (Remove Lidoderm Patch) 1 ea N/A DAILY@2100 [facility] Stop: 11/13/18 23:59 Last Admin: 11/13/18 22:10 Dose: 1 ea Documented by: [id number] Ondansetron HCl (Zofran) 4 mg IV NOW STA Stop: 11/13/18 08:52 Last Admin: 11/13/18 09:15 Dose: 4 mg Documented by: [id number] Ondansetron HCl (Zofran) Confirm Administered Dose 4 mg .ROUTE .STK-MED ONE Stop: 11/13/18 12:00 Last Admin: 11/13/18 12:17 Dose: 4 mg Documented by: [id number] Medical Decision Making Differential Diagnosis Differential diagnosis includes: musculoskeletal, disc herniation, fracture, aortic disease, metastatic disease, cord compression, discitis, infection, renal colic, gastrointestinal, acute exacerbation of chronic back pain, sciatica, cauda equina, as well as others were entertained. Medical Records Attestation: I reviewed the patient's medical records. Home Medications Current Medication List: was personally reviewed by me Laboratory Data Attestation: I reviewed the patient's lab results. Result diagrams: 11/13/18 09:05 11/13/18 09:05 Lab Results 11/13/18 11/13/18 11/13/18 Range/Units 09:05 09:05 09:05 WBC 3.71 L (4.8-10.8) K/uL RBC 4.55 L (4.7-6.1) M/uL Hgb 7.8 L (14.0-18.0) g/dL Hct 27.1 L (42-52) % MCV 59.6 L (80-100) fL MCH 17.1 L (25-34) pg MCHC 28.8 L (32-36) g/dL RDW Std Deviation 48.3 H (36.4-46.3) fL RDW Coeff of Jt 22.8 H (11.5-14.5) % Plt Count 127 L (130-400) K/uL Immature Gran % (Auto) 0.0 % Neut % (Auto) 75.8 % Lymph % (Auto) 18.6 % [place] % (Auto) 4.3 % Eos % (Auto) 1.3 % Baso % (Auto) 0.0 % Immature Gran # (Auto) 0.00 (0.00-0.02) K/uL Neut # (Auto) 2.81 (1.4-6.5) K/uL Lymph # (Auto) 0.69 L (1.2-3.4) K/uL [place] # (Auto) 0.16 (0.11-0.59) K/uL Eos # (Auto) 0.05 (0-0.5) K/uL Baso # (Auto) 0.00 (0-0.2) K/uL Platelet Estimate Decreased L (Normal) Giant Platelets 2+ Hypochromasia Present Microcytosis Present Target Cells 2+ ESR (0-14) mm/hr PT 27.0 H (9.0-12.0) Seconds INR 2.8 H (0.9-1.1) Sodium 141 (136-145) mmol/L Potassium 4.5 (3.5-5.1) mmol/L Chloride 110 H (98-107) mmol/L Carbon Dioxide 28 (21-32) mmol/L Anion Gap 3.0 (3-11) BUN 11 (7-18) mg/dl Creatinine 0.83 (0.6-1.4) mg/dl Est Cr Clr Drug Dosing 122.6 ml/min Est GFR ( Amer) 106.3 Est GFR (Non-Af Amer) 91.7 BUN/Creatinine Ratio 13.2 (10-20) Glucose 125 H (70-99) mg/dl Calcium 8.3 L (8.5-10.1) mg/dl Total Bilirubin 0.7 (0.2-1) mg/dl AST 78 H (15-37) U/L ALT 60 (12-78) U/L Alkaline Phosphatase 209 H (45-117) U/L Total Creatine Kinase 365 H (39-308) U/L CK-MB (CK-2) 1.8 (0.5-3.6) ng/ml CK/CKMB % Calc 0.5 (0-3.0) Troponin I 0.032 (0-0.045) ng/ml Total Protein 7.2 (6.4-8.2) gm/dl Albumin 2.8 L (3.4-5.0) gm/dl Globulin 4.4 H (2.5-4.0) gm/dl Albumin/Globulin Ratio 0.6 L (0.9-2) Lipase 675 H (73-393) U/L Specimen Hemolysis Blood Type Antibody Screen Crossmatch 11/13/18 11/13/18 Range/Units 09:05 10:07 WBC (4.8-10.8) K/uL RBC (4.7-6.1) M/uL Hgb (14.0-18.0) g/dL Hct (42-52) % MCV (80-100) fL MCH (25-34) pg MCHC (32-36) g/dL RDW Std Deviation (36.4-46.3) fL RDW Coeff of Jt (11.5-14.5) % Plt Count (130-400) K/uL Immature Gran % (Auto) % Neut % (Auto) % Lymph % (Auto) % [place] % (Auto) % Eos % (Auto) % Baso % (Auto) % Immature Gran # (Auto) (0.00-0.02) K/uL Neut # (Auto) (1.4-6.5) K/uL Lymph # (Auto) (1.2-3.4) K/uL [place] # (Auto) (0.11-0.59) K/uL Eos # (Auto) (0-0.5) K/uL Baso # (Auto) (0-0.2) K/uL Platelet Estimate (Normal) Giant Platelets Hypochromasia Microcytosis Target Cells ESR 50 H (0-14) mm/hr PT (9.0-12.0) Seconds INR (0.9-1.1) Sodium (136-145) mmol/L Potassium (3.5-5.1) mmol/L Chloride (98-107) mmol/L Carbon Dioxide (21-32) mmol/L Anion Gap (3-11) BUN (7-18) mg/dl Creatinine (0.6-1.4) mg/dl Est Cr Clr Drug Dosing ml/min Est GFR ( Amer) Est GFR (Non-Af Amer) BUN/Creatinine Ratio (10-20) Glucose (70-99) mg/dl Calcium (8.5-10.1) mg/dl Total Bilirubin (0.2-1) mg/dl AST (15-37) U/L ALT (12-78) U/L Alkaline Phosphatase (45-117) U/L Total Creatine Kinase (39-308) U/L CK-MB (CK-2) (0.5-3.6) ng/ml CK/CKMB % Calc (0-3.0) Troponin I (0-0.045) ng/ml Total Protein (6.4-8.2) gm/dl Albumin (3.4-5.0) gm/dl Globulin (2.5-4.0) gm/dl Albumin/Globulin Ratio (0.9-2) Lipase (73-393) U/L Specimen Hemolysis Blood Type B Positive Antibody Screen NEGATIVE Crossmatch See Detail Imaging Data Radiologist's Impression: Radiology results as stated below per my review and the radiologist's interpretation: CT lumbar spine wo con HISTORY: 68 years-old Male Pt c/o low back pain acute low back pain without reported trauma COMPARISON: CT pelvis of same day, CT abdomen and pelvis 07/03/2018 TECHNIQUE: Multiple axial CT images of the lumbar spine were obtained without the use of IV contrast. A dose lowering technique was used consistent with the principals of ALARA. FINDINGS: Large cystic lesion of the left kidney is partially imaged. Extensive calcification of the aorta and iliac arteries. The paraspinal tissues appear unremarkable. No adenopathy. Postoperative changes with laminectomy with posterior interbody carlos alberto and screw fusion at L3-S1. Discectomy changes at L4-L5. There is lucency surrounding the left greater than right S1 screws suggestive of hardware loosening, not significantly changed from 07/03/2018. No evidence of associated hardware fracture. Unchanged compression deformities at L1 and L2 with associated Schmorl's node formations. Unchanged mild anterior endplate wedging at L4 with subtle unchanged superior endplate L3 compression deformity. No acute fracture or subluxation identified involving the vertebral bodies. Demineralized appearance the bones. Multilevel spondylitic spurring with severe facet arthrosis. Acute appearing fractures are noted about the right L1 and L2 transverse processes, new from comparison. Additionally, there is a subacute appearing nondisplaced fracture about the posterior right 12th rib which also appears to be new from comparison. Chronic sclerotic appearance of the L5 and S1 vertebral bodies. IMPRESSION: 1. Acute appearing nondisplaced fractures about the right L1 and L2 transverse processes with subacute appearing nondisplaced fracture about the posterior right 12th rib, new from 07/03/2018. 2. Prior laminectomy with posterior interbody carlos alberto and screw fusion red emonstrated at L3-S1. Lucency surrounding the pedicle screws, left greater than right at S1 appears unchanged and is suggestive of hardware loosening. 3. Chronic compression deformities as above, notably at L1 and L2. The above report was generated using voice recognition software. It may contain grammatical, syntax or spelling errors. Electronically signed by: Kelechi Clark M.D. 11/13/2018 10:[address] pelvis wo con CLINICAL HISTORY: 68 years-old Male presenting with Pt c/o left sided hip pain, low back pain. TECHNIQUE: Multidetector CT of the pelvis was performed without the use of intravenous contrast. IV contrast: None. One or more dose lowering techniques were used consistent with the principles of ALARA (as low as reasonably achie vable), including automatic exposure control, mA or kV adjustment to individual patient size, and/or use of iterative reconstruction. COMPARISON: Correlation made to CT of the abdomen and pelvis from 07/03/2018. CT DOSE (mGy.cm): The estimated cumulative dose is 1765.43 mGy.cm. FINDINGS: Noc Technician topogram: Median sternotomy wires and mediastinal surgical clips. Lumbar fusion hardware. Vasectomy clips. Bilateral hip joints congruent. Degenerative changes of the bilateral hips evidenced by subchondral cystic change involving the femoral heads and superior acetabula. Mild joint space loss superiorly. Osteophytosis along the inferior femoral heads, right greater than left, to a mild degree. No evidence of fracture of the femoral heads or necks. Partially visualized lumbar fusion hardware with extensive changes in the lumbar spine including erosive changes and endplate sclerosis at L5-S1 as on prior CT. Lucency surrounds the left transpedicular screw at S1. Interbody spacer noted at L4-5. Partially visualized L4 laminectomy. The sacrum is otherwise intact. Sacroiliac joints intact though degenerative changes are noted bilaterally, right greater than left.. The bony pelvis is intact without evidence of fracture. Limited evaluation of the soft tissues of the pelvis demonstrate an enlarged prostate. Moderate stool burden. Normal appendix. Atherosclerosis. IMPRESSION: 1. No acute osseous injury of the pelvis. 2. Degenerative changes of the bilateral hips, which are fairly symmetric and overall mild to moderate. 3. Extensive degenerative changes of the lumbar spine. Erosive changes and endplate sclerosis at L5-S1 is nonspecific, although chronic osteomyelitis is not excluded. Additionally, associated lucency surrounding the left S1 pedicle screw suggests loosening or infection. This is also similar to prior CT from June. 4. Prostatomegaly. Electronically signed by: Percy Vasquez M.D. 11/13/2018 9:53 AM ECG Data Attestation: I personally reviewed and interpreted this ECG as follows: Indication: back/shoulder pain Rate (beats per minute): 67 Rhythm: sinus rhythm Findings: + 1st degree AV block; no ST depression and no ST elevation Blood Pressure Blood Pressure Findings: Elevated blood pressure Blood Pressure Disposition: further management by hospitalist [facility] Narrative This is a 68-year-old male who presents the emergency department complaining of back pain. The patient does have to back fractures on CAT scan. I am concerned that the patient appears to be pancytopenic and does require a blood transfusion. Based on all these findings I did discuss the case with the hospitalist service who agreed to admit the patient. Patient was given Dilaudid while he was in the emergency department for his pain. Repeat examination revealed improvement in the patient's symptoms. Patient and are in agreement with the treatment plan. Impression & Plan Pancytopenia Critical Care Time I have personally spent 30 minutes of critical care time in the direct management of this patient. This includes bedside care, interpretation of diagnostic studies, and testing, discussion with consultants, patient, and famil y members, and other required patient management activities. These 30 minutes are in excess of all separately billable procedures. Critical Care Time: Yes Total Critical Care Time: 30 Discharge Plan Visit Data *Final* Discharge Date/Time: 11/13/18 12:10 Chief Complaint: Back Injury/Pain Stated Complaint: back pain ED Provider: Ervin Rudolph Discharge Problem: Pancytopenia Patient Disposition: Admitted As Inpatient Discharge Instructions Interventions: ED Discharge Assessment Last Done: 11/13/18 12:10 The scribe's documentation has been prepared under my direction and personally reviewed by me in its entirety. I confirm that the note above accurately reflects all work, treatment, procedures, and medical decision making performed by me.
--- NOTE | 2018-11-13 16:22 | Pharmacy Report ---
Pharmacy Abx Dose Short Note - Date of Service November 13, 2018 - Assessment & Plan Assessment 68 year old M receiving vanco/cefepime for treatment of osteomyelitis. Day # of antimicrobial therapy. Pt population p'kinetics: t1/2=6.6, ke=0.104. BC are both pending. Plan Vancomycin: Will give loading dose of 2500mg (18mg/kg) X1 Then start maintenance dose of 1750mg (12.6mg/kg) q8 this evening Goal trough for r/o osteo: 15-20mcg/mL Trough ordered for 11/14/18 @1530 Cefepime: Appropriately dosed Pharmacy will continue to follow and will adjust dose/frequency as necessary. Thank you.
[2018-11-13] MEDS: DUTASTERIDE SCH ×2 (16:26→23:32)
[2018-11-13] MEDS: [UNRECOGNIZED DRUG - OTHER] SCH ×2 (16:26→23:32)
[2018-11-13] MEDS: CEFEPIME 1,000 MG in SYRINGE 0 ML IV SCH ×2 (16:34→22:10)
[2018-11-13] MEDS: PROPRANOLOL HCL 20 MG TAB PO SCH ×2 (16:34→18:35)
[2018-11-13] MEDS: LACTULOSE SYRUP 10 GM/15 ML BTL 473 ML PO SCH ×2 (16:34→20:38)
[2018-11-13] MEDS: DICLOFENAC SOD 1% GEL 100 GM TUBE EXT SCH ×3 (16:35→20:42)
[2018-11-13] MEDS: FOLIC ACID 1 MG TAB PO SCH (16:36)
[2018-11-13] MEDS: ONDANSETRON INJ 2 MG/ML 2 ML VIAL IV PRN (16:42)
[2018-11-13] MEDS ORDERED: PROMETHAZINE HCL 12.5 MG in SODIUM CHLORIDE 0.9% 50 ML IV PRN (17:04)
[2018-11-13] MEDS: WARFARIN SOD 7.5 MG TAB PO SCH (20:38)
[2018-11-13] MEDS: BuPROPion SR 100 MG TABCR PO SCH (20:40)
[2018-11-13] MEDS: OMEGA-3 (PURIFIED FISH OIL) 1 GM CAP PO SCH (20:40)
[2018-11-13] MEDS: LISINOPRIL 10 MG TAB PO SCH (20:41)
[2018-11-13] MEDS: EZETIMIBE 10 MG TABLET PO SCH (20:41)
[2018-11-13] MEDS: POTASSIUM CHLORIDE 20 MEQ TABCR PO SCH (20:41)
[2018-11-13] MEDS: TAMSULOSIN HCL 0.4 MG CAP PO SCH (20:42)
[2018-11-13] MEDS: INSULIN GLARGINE SOLOSTAR 100 UNITS/ML 3 ML PEN SQ SCH (21:59)
[2018-11-13] MEDS: INSULIN ASPART 100 UNITS/ML 3 ML PEN SC SCH (22:08)
[2018-11-13] MEDS: VANCOMYCIN HCL 1,750 MG in SODIUM CHLORIDE 0.9% 500 ML IV SCH (23:32)
[2018-11-14] MEDS: CEFEPIME 1,000 MG in SYRINGE 0 ML IV SCH ×4 (05:56→23:56)
[2018-11-14] MEDS: VANCOMYCIN HCL 1,750 MG in SODIUM CHLORIDE 0.9% 500 ML IV SCH (08:11)
[2018-11-14] MEDS: DICLOFENAC SOD 1% GEL 100 GM TUBE EXT SCH ×5 (09:05→21:17)
[2018-11-14] MEDS: PANTOprazole 40 MG TAB PO SCH (09:05)
[2018-11-14] MEDS: dilTIAZem ER 180 MG CAPCR PO SCH (09:05)
[2018-11-14] MEDS: POLYETHYLENE (MIRALAX) 17 GM PACK PO SCH (09:05)
[2018-11-14] MEDS: POTASSIUM CHLORIDE 20 MEQ TABCR PO SCH ×2 (09:06→21:16)
[2018-11-14] MEDS: DULOXETINE HCL 60 MG CAP PO SCH (09:06)
[2018-11-14] MEDS: [UNRECOGNIZED DRUG - OTHER] SCH ×2 (09:07→16:20)
[2018-11-14] MEDS: PROPRANOLOL HCL 20 MG TAB PO SCH ×3 (09:07→18:21)
[2018-11-14] MEDS: DUTASTERIDE SCH ×2 (09:07→16:20)
[2018-11-14] MEDS: ASPIRIN 81 MG ECTAB PO SCH (09:07)
[2018-11-14] MEDS: ISOSORBIDE MONO EXTENDED REL 60 MG TABCR PO SCH (09:08)
[2018-11-14] MEDS: BuPROPion SR 100 MG TABCR PO SCH ×2 (09:08→21:16)
[2018-11-14] MEDS: LACTULOSE SYRUP 10 GM/15 ML BTL 473 ML PO SCH ×3 (09:09→21:16)
[2018-11-14] MEDS: INSULIN ASPART 100 UNITS/ML 3 ML PEN SC SCH ×4 (09:21→21:50)
[2018-11-14 09:22] LABS: Prothrombin Time 33.5 Seconds (9.0-12.0)
[2018-11-14 09:31] LABS: Hematocrit (blood only) 25.3 % (42-52); Hemoglobin 7.4 g/dL (14.0-18.0); Mean Corpuscular Hgb Conc 29.2 g/dL (32-36); Mean Corpuscular Volume 59.4 fL (80-100); RDW Coefficient of Variation 22.8 % (11.5-14.5); RDW Standard Deviation 48.2 fL (36.4-46.3); Red Blood Count 4.26 M/uL (4.7-6.1); White Blood Count 3.99 K/uL (4.8-10.8)
[2018-11-14 09:44] LABS: BUN Creatinine Ratio 14.4 (10-20); Calcium 8.1 mg/dl (8.5-10.1); Creatinine Clr Calc Pharmacy 104.9 ml/min; Est GFR (African American) 93.9; Potassium 3.9 mmol/L (3.5-5.1)
[2018-11-14 10:36] LABS: Platelet Count 123 K/uL (130-400)
[2018-11-14 10:37] LABS: Anisocytosis Present; Basophils # (auto) 0.01 K/uL (0-0.2); Basophils % (auto) 0.3 %; Eosinophils # (auto) 0.11 K/uL (0-0.5); Eosinophils % (auto) 2.8 %; Giant Platelets 1+; Immature Granulocytes # (auto) 0.01 K/uL (0.00-0.02); Immature Granulocytes % (auto) 0.3 %; Lymphocytes # (auto) 1.35 K/uL (1.2-3.4); Lymphocytes % (auto) 33.8 %; Monocytes # (auto) 0.55 K/uL (0.11-0.59); Monocytes % (auto) 13.8 %; Neutrophils # (auto) 1.96 K/uL (1.4-6.5); Platelet Estimate Decreased (Normal); Schistocytes 1+; Target Cells 3+
--- NOTE | 2018-11-14 11:02 | Consultation Report ---
DATE OF CONSULTATION: 11/14/2018 REASON FOR CONSULTATION: Evaluate very pleasant 68-year-old -[place] gentleman with microcytic anemia. HISTORY OF PRESENT ILLNESS: Mr. Herring is a very pleasant 68-year-old -[place] male with multiple comorbid issues including history of thalassemia trait, osteomyelitis, insulin-dependent diabetes mellitus, atrial fibrillation and cirrhosis of the liver, not related to alcohol, was admitted on November 13 with intractable back pain. Mr. Herring states he has had multiple lumbar spine surgeries at least on 3 occasions with instrumentation. His pain is mostly centered in the lumbar region which has become severe enough making it difficult for him to ambulate. He denied any trauma or aggravating or alleviating factors. CT scan reveals evidence of L1-L2 transverse process fracture and a right 12th posterior rib fracture. Orthopedics is presently on consult. I have been asked to see Mr. Herring because of his ongoing hematologic issues. Mr. Herring claims he was informed by a relative that he does suffer from thalassemia trait, type unknown. He was never formally evaluated by veterinary virologist; however, his primary care physician over the years has intermittently prescribed iron. He presently reports no active gastrointestinal or genitourinary bleeding and claims to have undergone endoscopic procedures leading up to a potential liver transplant. He also reports history of suspected hepatocellular carcinoma and was actually treated by arterial embolization at the [facility] he believes roughly about a year and half ago. From a symptom standpoint, he admits to fatigue and decreased exercise tolerance. Again, I have been asked to evaluate this very pleasant gentleman and make recommendations regarding his current hematologic status. PAST MEDICAL HISTORY: Again, significant for osteomyelitis of the lumbar spine, insulin-dependent diabetes mellitus, chronic systolic congestive heart failure, cirrhosis of liver not due to alcoholism, opioid dependence, gout and history of iron deficiency anemia. MEDICATIONS: Prior to admission include warfarin 5 mg p.o. b.i.d., oxycodone 10 mg p.o. p.r.n., lorazepam 0.5 mg p.o. daily p.r.n., insulin Glargine 10 units subQ at bedtime, diclofenac gel applied to affected area q.i.d., medical marijuana one dose inhalation p.r.n., insulin Glargine 10 units subQ q.p.m., Avodart 0.5 mg p.o. daily, bupropion 100 mg p.o. b.i.d., tamsulosin 0.4 mg p.o. daily, propranolol 20 mg p.o. t.i.d., potassium chloride 20 mEq p.o. b.i.d., Protonix 80 mg p.o. daily, ondansetron 40 mg p.o. q. 6 hours p.r.n., omega-3 fish oil 1 capsule p.o. b.i.d., nitroglycerin p.r.n., multivitamin once daily, magnesium oxide 1 capsule p.o. daily, lisinopril 10 mg p.o. daily, lactulose 15 mL p.o. t.i.d., Imdur 120 mg p.o. daily, Lasix 40 mg p.o. daily, folic acid 1 mg p.o. daily, ezetimibe 10 mg p.o. daily, eplerenone 25 mg p.o. daily, duloxetine 60 mg p.o. daily, doxycycline 100 mg p.o. b.i.d., diltiazem 180 mg p.o. daily, baclofen 20 mg p.o. t.i.d. p.r.n., aspirin 81 mg p.o. daily, amoxicillin 4 tablets as directed p.r.n., cephalexin 550 mg p.o. b.i.d. ALLERGIES: HE HAS ALLERGIES TO SIMVASTATIN, SPIRONOLACTONE, PIOGLITAZONE. REVIEW OF SYSTEMS: Intractable lumbar back pain, fatigue, decreased exercise tolerance. This gentleman is a morbidly obese, does not report fevers, chills or sweats. SKIN: No rashes or lesions. No history of dermatoses. HEENT: Negative for headaches, lightheadedness or dizziness. No sinus symptoms, sore throat or dysphagia. LYMPH: No history of lymphoproliferative disease. CARDIAC: Positive history of CHF, atrial fibrillation. No current angina or palpitations. PULMONARY: Negative for COPD. He does suffer from obstructive sleep apnea, utilizing CPAP at night. No cough or hemoptysis. GASTROINTESTINAL: Negative for abdominal pain, nausea, vomiting, diarrhea or constipation, hematochezia or melena stools. GENITOURINARY: No hematuria, dysuria, urinary incontinence. MUSCULOSKELETAL: History of osteomyelitis of the lumbar spine, difficulty ambulation. No overt muscle weakness per se. ENDOCRINE: Positive for diabetes mellitus. NEUROLOGIC: Negative for seizure, stroke, or migraine headache. HEMATOLOGIC: Positive for microcytic anemia, borderline leukopenia. PHYSICAL EXAMINATION: GENERAL: A very pleasant 68-year-old -[place] gentleman in no acute distress, awake, alert and appropriate. VITAL SIGNS: Temperature 36.6, pulse 68, respiratory rate 16, blood pressure 111/75. SKIN: Warm, dry, noncyanotic without petechia, rash or ecchymosis. HEENT: Head is atraumatic, normocephalic. Eyes: PERRLA, EOMI. Sclerae nonicteric. No conjunctival injection. Nares patent without rhinorrhea or discharge. Throat clear. Tongue midline. Mucous membranes are moist. NECK: Supple without JVD or thyromegaly. HEART: Regular rate and rhythm. No clicks, rubs or murmurs. LUNGS: Clear to auscultation bilaterally. ABDOMEN: Soft, nontender, nondistended, could not appreciate hepatosplenomegaly. EXTREMITIES: He has 1-2+ peripheral edema, bilateral lower extremities. MUSCULOSKELETAL: Strength and pulses are equal in all 4 quadrants. NEUROLOGICALLY: He is awake, alert and oriented x3. Cranial nerves are grossly intact. LABORATORY DATA: WBC count 3710, hemoglobin 7.8, MCV 59.6, platelet count 127,000. Sodium 141, potassium 4.5, chloride 110, carbon dioxide 28, BUN 11, creatinine 0.83, albumin 2.8, lipase elevated 675. IMPRESSION: 1. Microcytic anemia. 2. Thalassemia trait. 3. Mild leukopenia/thrombocytopenia. PLAN: I have been asked to evaluate Mr. Herring for his underlying hematologic problems. Mr. Herring was very helpful imparting a past medical information including his history of iron deficiency in the past and receiving intravenous supplementation which I would recommend moving forward if proven to be deficient at this time. He is on high-dose proton pump inhibitor and therefore would not recommend oral supplementation because of lack of absorption. He has never been formally evaluated for thalassemia trait and perhaps a hemoglobin electrophoresis should be done to document officially on his medical record. I believe his leukopenia and thrombocytopenia are reflection of his ongoing liver disease, probable translated splenomegaly and sequestration. Myelodysplasia is not ruled out; however, in the setting of his comorbid issues would not immediately pursue a bone marrow until there is convincing evidence of further decline in his peripheral counts. I have no issue with transfusional support to alleviate fatigue and decreased exercise tolerance. For now, if you would kindly order a hemoglobin electrophoresis and serum iron, ferritin and TIBC. I also advised Mr. Herring to follow up in hematology clinic moving forward and he has agreed to do so. Thank you very much for allowing me to participate in the care of this very pleasant gentleman.
--- NOTE | 2018-11-14 11:15 | Magnetic Resonance Report ---
MR lumbar spine wo con CLINICAL HISTORY: 68 years-old Male presenting with Osteomyelitis, severe low back pain with bilatera l reticulata the for over one year, requiring multiple lumbar fusions complicated by infection. TECHNIQUE: Multisequence, multiplanar MR imaging of the lumbar spine was performed without the use of intravenous contrast. IV contrast: None. COMPARISON: CT from 11/13/2018 and MR from 08/31/2017. FINDINGS: Localizer images: Left renal cyst. Significantly degraded exam by patient motion as well as extensive postsurgical change. The recently reported nondisplaced fractures of the right transverse processes of L1 and L2 are becky r appreciated on most recent CT as is the presence of a posterior right 12th rib fracture. Postsurgical changes of posterior bilateral transpedicular screw and carlos alberto fixation of L3-S1 with kiki ectomy defects. Interbody spacers noted at L4-5 and L5-S1. Recently noted lucency surrounding the S1 screws, left greater than right, best appreciated on CT. Compression deformities of L1 and L2 similar to prior MR. Posterior cortex of L2 again is a retropuls ed along the inferior margin resulting in moderate to severe spinal canal stenosis at the level of L2 -3 Allowing for susceptibility artifact arising from the hardware, bony edema is suggested in the L2 herve tebral body. Abnormal T2 hyperintensity of the intervertebral disc spaces at L1-2 and L2-3. Mild jonna a in the left psoas muscle at the level of L3-4 may be unrelated. Neural foraminal narrowing evident at L2-3, moderate right and severe left. No significant neural for aminal narrowing at the operative levels. L1 to neural foramina also patent. Spinal cord and cauda cauda equina poorly assessed given image quality. Extensive postsurgical changes in the posterior soft tissues with T2 hyperintensity. No gross evidenc e of a focal fluid collection. IMPRESSION: 1. Abnormal fluid within the L1-2 and L2-3 intervertebral disc. This is nonspecific but can be seen in the setting of early discitis. 2. Bony edema suggested in the L2 vertebral body. This is nonspecific and osteomyelitis cannot be ex cluded. The absence of paraspinal edema at this level would argue against infection. Alternatively, t his could be due to the chronic traumatic deformity and reactive osteitis. 3. Compression deformity of L2 with retropulsion of the posterior cortex as on prior exam resulting in moderate to severe spinal canal stenosis at L2-3. 4. Postsurgical changes of L3-S1 posterior fusion and laminectomies. Adjacent level degenerative ernie nge with severe left and moderate right neural foraminal narrowing at L2-3. 5. Acute fractures of the right transverse processes of L1 and L2 in the right 12th rib are better a ppreciated on CT. Electronically signed by: Percy Vasquez M.D. 11/14/2018 11:14 AM
--- NOTE | 2018-11-14 11:20 | XRay Report ---
XR lumbar spine 2-3V HISTORY: 68 years-old Male instability chronic low back pain COMPARISON: MRI lumbar spine of same day, CT lumbar spine 11/13/2018 TECHNIQUE: 3 views of the lumbar spine FINDINGS: Posterior interbody carlos alberto and screw fusion hardware redemonstrated at L3-S1. Prior discectomy changes a t L4-L5. Mild lucency is again noted surrounding the bilateral S1 pedicle screws. No evidence of hard mccall fracture. Compression deformities are again noted the L1 and L2 levels. Multilevel spondylitic s purring with facet arthrosis. Soft tissues are unremarkable. IMPRESSION: 1. Compression deformities at L1 and L2 redemonstrated. Please refer to MRI lumbar spine of same day for further details. 2. Posterior interbody carlos alberto and screw fusion hardware noted at L3-S1. Lucency surrounding the bilatera l S1 pedicle screws is suggestive of hardware loosening. The above report was generated using voice recognition software. It may contain grammatical, syntax o r spelling errors. Electronically signed by: Kelechi Clark M.D. 11/14/2018 11:18 AM
[2018-11-14] MEDS: FUROSEMIDE 40 MG TAB PO SCH (11:25)
[2018-11-14] MEDS: MULTIVITAMIN TAB PO SCH (11:25)
[2018-11-14] MEDS: MAGNESIUM OXIDE 400 MG TAB PO SCH (11:25)
[2018-11-14] MEDS: FOLIC ACID 1 MG TAB PO SCH (11:25)
[2018-11-14 11:29] LABS: Creatinine Clr Calc Pharmacy 108.2 ml/min; Est GFR (African American) 97.5; Est GFR (Non-African American) 84.2
[2018-11-14] MEDS: BACLOFEN 20 MG TAB PO PRN (12:31)
[2018-11-14] MEDS: OMEGA-3 (PURIFIED FISH OIL) 1 GM CAP PO SCH ×2 (12:32→21:16)
[2018-11-14 12:50] LABS: INR 3.6 (0.9-1.1)
[2018-11-14 12:59] LABS: C-Reactive Protein High Sens. 5.5 MG/L (0.0-3.0)
--- NOTE | 2018-11-14 13:05 | Consultation Report ---
DATE OF CONSULTATION: 11/13/2018 REASON FOR CONSULTATION: Low back pain. HISTORY OF PRESENT ILLNESS: Chivo is 68 years of age. I have known him for approximately 10 days. He was in the office either last week or the week before with his intractable low back pain. We tried to get him involved with a back brace and some PT, evidently the pain became too significant for him. He came to the Emergency Room and was admitted to the hospital. He has mechanical back pain, some radicular component, but mostly it is immobilization and getting him from bed to chair, up standing with walker, the actual activities of daily life. PAST MEDICAL HISTORY: Significant for thalassemia trait, osteomyelitis, diabetes mellitus, AFib, nonalcohol related cirrhosis of the liver. PAST SURGICAL HISTORY: Includes multiple lumbar spine surgeries with instrumentation. I do not think he had an infection in the past that was cleared up, then re-instrumented. I am unsure where his surgery was performed. He has had no trauma and is significantly compromised. Medical history as stated include insulin-dependent diabetes mellitus, congestive heart failure, cirrhosis again not due to alcoholism and opioid dependence. He also has iron deficiency anemia and anemia of chronic disease, I would think. MEDICATIONS: Reviewed and dictated upon. I am not reiterating all the medications, number approximately 30. REVIEW OF SYSTEMS: He admits to intractable back pain, but no fever, sweats, chills. Denies any skin issues. HEENT: Negative for headaches, dizziness. CARDIAC: Positive for congestive heart failure, AFib, but no angina. PULMONARY: Negative COPD. Does have sleep apnea, does have a CPAP machine. GASTROINTESTINAL: Negative for nausea, vomiting or incontinence of bowel and bladder. PHYSICAL EXAMINATION: GENERAL: He is alert, oriented. He is pleasant. He is 68. VITAL SIGNS: Stable, importantly at 36.6 temperature, pulse 68 and irregular. Respiratory rate 16, blood pressure decreased. He is 6 feet tall. He is probably 280 pounds. HEENT: Essentially normal. CARDIAC: Normal rate, rhythm, no ectopy. LUNGS: Clear. ABDOMEN: Soft, nontender. EXTREMITIES: Had some edema of significance, but strength was equal. NEUROLOGIC: Alert, oriented. Cranial nerves intact. LABORATORY DATA: Lab work demonstrates a hemoglobin of 7.8, platelet count of 127,000. IMAGING DATA: His images reviewed in detail. I looked at office films, plain x-rays at [facility] along with an MRI and a CT scan. In summary, from a spinal standpoint, my impression is that he has probably not an osteomyelitis, it is more of a degenerative situation with a compression deformity of L2, multiple surgeries, severe stenosis particularly at L2-L3. He does have a significant amount of bone edema. I think it is more from instability rather than infection, more of a chronic sort of a traumatic issue. ASSESSMENT: Complex lumbar spinal pathology with infection versus degenerative changes, instability, stenosis, multiple levels, also his other comorbidities which are significant. PLAN: At this point in time, we will try to hold off on surgery for this gentleman. I know it can be done, I felt comfortable doing the case, I am not sure how much we would gain. At the very most we might get him to be stabilized, we can get him mobilized from bed to chair and up with a walker so that would be an advantage. Prior to surgery, we have to make sure he is really optimal from a medical standpoint. His CHF is under control. His hemoglobin we have to have above 10 and of course check labs for any type of antiplatelet issue. So long story short in a short run, I would recommend a brace for support and a rehab type placement for Mr. Herring. I will follow him closely. I am not planning any type of urgent or emergent surgeries.
--- NOTE | 2018-11-14 13:11 | Infectious Disease Consult ---
Date of Consultation November 14, 2018 Assessment & Plan (1) Osteomyelitis of lumbar spine: continue IV abx for now, cultures negative to date. No abscess/collection noted on ct. If cultures negative, no new infection found, will likely resume chronic suppressive abx. History of Present Illness Attending Physician: Rashawn Howell [place] pt admitted with increased back pain, states has been increasing over last 2-3 weeks, has pain with movement, ambulation, no pain at rest, no change in bladder/bowel function. saw ortho last week, no plan for surgery. Has h/o infected spinal hardware, retained, deemed to not be a surgical candidate on past admissions. Has h/o [employer] sepsis and hardware infection, has been on suppressive doxy for some time, states he is still taking bid and tolerating well. Last ID visit was on 12/23/17, was to follow in six months or as needed but has been lost to f/u. no abd pain, tolerating abx well. no n/v/d. no f/c at home. currently afebrile repeat imaging of spine showing loosening of hardware and fracture L1/L2. ortho following. ESR 50, wbc 3.7, creat nml. Blood cultures pending. oob to chair on my exam. denies f/c, no cp, sob, cough, no n/v/d/abd pain, no pain in legs. back pain only. denies any trauma at home. Allergies Allergy/AdvReac Type Severity Reaction Status Date / Time simvastatin AdvReac Intermediate GI UPSET- Verified 11/13/18 08:58 OK WITH LIPITOR spironolactone AdvReac Mild NIPPLES Verified 11/13/18 08:58 HURT pioglitazone AdvReac Unknown GI UPSETS Verified 11/13/18 08:58 Home Medications Home Medications Medication Instructions Recorded Confirmed Type Xifaxan 550 mg PO BID PRN 05/26/18 11/13/18 History amoxicillin 4 tab PO DIRECTED PRN 05/26/18 11/13/18 History aspirin [Aspirin Low Dose] 81 mg PO QAM 05/26/18 11/13/18 History baclofen 20 mg PO TID PRN 05/26/18 11/13/18 History diltiazem HCl 180 mg PO QAM 05/26/18 11/13/18 History doxycycline monohydrate 100 mg PO BID 05/26/18 11/13/18 History duloxetine 60 mg PO QAM 05/26/18 11/13/18 History eplerenone 25 mg PO QAM 05/26/18 11/13/18 History ezetimibe 10 mg PO QPM 05/26/18 11/13/18 History folic acid 1 mg PO QDL 05/26/18 11/13/18 History furosemide 40 mg PO QAM 05/26/18 11/13/18 History isosorbide mononitrate 120 mg PO QAM 05/26/18 11/13/18 History lactulose 15 ml PO TID 05/26/18 11/13/18 History lisinopril 10 mg PO QPM 05/26/18 11/13/18 History magnesium oxide 1 cap PO QDL 05/26/18 11/13/18 History multivitamin 1 tab PO QDL 05/26/18 11/13/18 History nitroglycerin 1 tab SUBLINGUAL DIRECTED PRN 05/26/18 11/13/18 History omega-3 acid ethyl esters 1 cap PO BID 05/26/18 11/13/18 History ondansetron 4 mg PO Q6 PRN 05/26/18 11/13/18 History pantoprazole 80 mg PO QAM 05/26/18 11/13/18 History potassium chloride 20 meq PO BID 05/26/18 11/13/18 History propranolol 20 mg PO TIDM 05/26/18 11/13/18 History tamsulosin 0.4 mg PO HS 05/26/18 11/13/18 History bupropion HCl [Wellbutrin SR] 100 mg PO BID 07/16/18 11/13/18 History dutasteride [Avodart] 0.5 mg PO DAILY 07/16/18 11/13/18 History insulin glargine [Basaglar KwikPen 10 unit SUBCUT QPM 07/16/18 11/13/18 History U-100 Insulin] Medical Marijuana 1 dose INHALATION UD PRN 11/13/18 11/13/18 History diclofenac sodium 1 g TOPICAL QID 11/13/18 11/13/18 History insulin glargine [Lantus Solostar 10 unit SUBCUT HS 11/13/18 11/13/18 History U-100 Insulin] lorazepam 0.5 mg PO DAILY PRN 11/13/18 11/13/18 History oxycodone 10 mg PO DAILY PRN 11/13/18 11/13/18 History warfarin 5 mg PO BID 11/13/18 11/13/18 History Patient History Medical History Morbid obesity (Chronic) Opioid dependence (Chronic) 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) Chronic systolic CHF (congestive heart failure) (Chronic) Osteomyelitis of lumbar spine (Acute) Fracture of lumbar spine (Acute) Pancytopenia (Chronic) Esophageal varices Lumbar canal stenosis (05/15/13) Diabetes (Chronic) Anemia (Chronic) HTN (hypertension) (Chronic) Hyperlipidemia (Chronic) Atrial flutter Anemia Anxiety and depression Atrial fibrillation Diabetes Enlarged prostate Essential tremor GERD (gastroesophageal reflux disease) Gout High cholesterol Hx of myocardial infarction 1994 Hypertension Liver failure NOT CANDIDATE FOR LIVER TRANSPLANT - Sleep apnea USES CPAP Vomiting PATIENT DESCRIBES HE HAS BEEN VOMITING EVERY DAY AND PAIN IN BACK Surgical History History of back surgery X3 - 2 FOR FUSIION AND LAST TO CLEAN UP INFECTION History of cardiac cath X4 - [facility] - LAST ONE 02/2011 ? [facility] [place] Hx of arthroscopic knee surgery X4 RIGHT Hx of colonoscopy Hx of heart bypass surgery X2 - 1993 AND 2010 - [facility] Hx of vasectomy Social History Preferred Language: Malian Communication Ability: Effective Apartment Manager Required: No Beliefs That Will Affect Care: None Current Living Situation: Spouse Feels Safe at Home: Yes Safety Concerns: Feels Safe At This Time Smoking Status: Light tobacco smoker Tobacco Type: cigarettes Cigarettes Per Day: 15 Do You Dip or Chew Tobacco: No Smoking End Date: 2000 Second Hand Exposure: No Tobacco Cessation Education Requested by Patient: No Hx Alcohol Use: Yes Alcohol type: beer and wine Hx Substance Use: Yes substance use type: marijuana Last Used Substance Other:: presciption for medicinal marijuana Review of Systems Review of Systems: All systems reviewed & are unremarkable except as noted in HPI & below Physical Exam Constitutional: WD/WN, vitals as above Eyes: PERRL, conjunctivae normal, anicteric sclerae ENMT: external ear and nose normal, oropharynx normal Neck: normal visual inspection Respiratory: normal respiratory effort, lungs clear to auscultation Cardiovascular: RRR, no murmur, no edema Gastrointestinal (Abdomen): normal bowel sounds, soft, nontender, no hepatosplenomegaly Musculoskeletal: no cyanosis or clubbing, extremities motor strength 5/5 Skin: no rashes, warm and dry Psychiatric: A+Ox3, euthymic affect Results & Data Laboratory Results Microbiology 11/13/18 11:15 Blood Aerobic Blood Culture - Preliminary No growth in Aerobic bottle after 24 hours. 11/13/18 11:15 Blood Anaerobic Blood Culture - Preliminary No growth in Anaerobic bottle after 24 hours. 11/13/18 11:17 Blood Aerobic Blood Culture - Preliminary No growth in Aerobic bottle after 24 hours. 11/13/18 11:17 Blood Anaerobic Blood Culture - Preliminary No growth in Anaerobic bottle after 24 hours.
[2018-11-14] MEDS ORDERED: VANCOMYCIN TROUGH ONE (15:30)
[2018-11-14] MEDS: VANCOMYCIN HCL 1,500 MG in SODIUM CHLORIDE 0.9% 500 ML IV SCH (18:35)
--- NOTE | 2018-11-14 19:38 | Pharmacy Report ---
Pharmacy Abx Dose Progress Nt - Date of Service November 14, 2018 - Pharmacy Dosing Scope The patient WAS receiving the following antimicrobial agents per Pharmacy consult: Vancomycin 1750 mg IV every 8 hours but it is now changed to 1500 mg IV q10h. - Objective Vital Signs (Past 12hrs): Vital Signs Temp Pulse Pulse Resp BP BP Pulse Ox 11/14/18 18:19 36.9 C 65 18 136/78 96 11/14/18 15:36 36.9 C 65 19 141/73 H 95 Lab Results (24hrs): Laboratory Tests (24 Hours) 11/14/18 11/14/18 11/14/18 15:26 09:06 09:06 WBC Neut # (Auto) Creatinine 0.94 Est Cr Clr Drug Dosing 108.2 Procalcitonin < 0.05 Vancomycin Trough 20.6 11/14/18 11/14/18 08:42 08:42 WBC 3.99 L Neut # (Auto) 1.96 Creatinine 0.97 Est Cr Clr Drug Dosing 104.9 Procalcitonin Vancomycin Trough - Assessment & Plan Assessment 68 year old M receiving Vancomycin for treatment of possible Osteomyelitis. Day 2 of antimicrobial therapy Plan Vancomycin IV * Trough level of 20.6 mcg/mL is slightly supratherapeutic. * Changed to Vancomycin 1500 mg IV every 10 hours * Goal trough level for Osteo: 17 to 20 mcg/mL * Trough level ordered for: 11/15/18 before dose at 1400. * Less than traditional dose selected due to likelihood of drug accumulation in obese patient (BMI = 44 kg/m2). Pharmacy will continue to follow and will adjust dose/frequency as necessary. Thank you.
[2018-11-14] MEDS: MoRPHine SULFATE 2 MG/ML CARP IV PRN (21:07)
[2018-11-14] MEDS: TAMSULOSIN HCL 0.4 MG CAP PO SCH (21:16)
[2018-11-14] MEDS: WARFARIN SOD 7.5 MG TAB PO SCH (21:16)
[2018-11-14] MEDS: LISINOPRIL 10 MG TAB PO SCH (21:16)
[2018-11-14] MEDS: EZETIMIBE 10 MG TABLET PO SCH (21:17)
[2018-11-14] MEDS: INSULIN GLARGINE SOLOSTAR 100 UNITS/ML 3 ML PEN SQ SCH (21:49)
--- NOTE | 2018-11-14 22:42 | Hospitalist Progress Note ---
Date of Service November 14, 2018 Assessment & Plan (1) Fracture of lumbar spine: The patient denies recent falling or trauma but there is evidence of transverse process fracture on the right side at L1 and L2. Possible loosening of left S1 pedicle screw. Orthopedic consultation with Dr. Jung has been requested since they saw him recently bedrest. Pain control measures. Appreciate input. Appears to surgical intervention will be done at this time. And treatment for focus on rehab. 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 No evidence of overt GI blood loss. Will consult hematology for further evaluation. Serial labs Appreciate input. Will monitor hemoglobin. May require transfusion. (3) Osteomyelitis of lumbar spine: Suggestion of osteomyelitis at the left S1 level in the region of the loose pedicle screw. Infectious disease consultation. Obtain blood cultures. Start vancomycin and cefepime. Appreciate input by ID. will continue with antibiotics. (4) Diabetes: The patient is insulin-dependent. ADA diet. Continue Basaglar. Sliding scale coverage as needed (5) Chronic systolic CHF (congestive heart failure): Appears to be stable. Chest x-ray is pending. 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 Continue current medication management (7) Opioid dependence: He takes oxycodone at home. He will receive parenteral narcotics for pain control measure while hospitalized until he is able to be switched back to oral medication (8) Morbid obesity: BMI greater than 40 Spent 35 minutes in management of patient. This included patient encounter, chart review, discussion with consultants. Subjective Patient reports no significant change in his back pain. It continues to be present and it is difficult for his to turn towards his left side. He states it is also difficult for him to move into a chair from his bed. Patient currently denies any fever, chills, nausea, vomiting, diarrhea. Review of Systems Review of Systems: All systems reviewed & are unremarkable except as noted in HPI & below Physical Exam Physical Exam: Constitutional: + morbidly obese; no acute distress, no altered mental status and no language barrier Eyes: PERRL, conjunctivae normal, anicteric sclerae ENMT: external ear and nose normal, oropharynx normal Neck: trachea midline, no thyromegaly Respiratory: normal respiratory effort, lungs clear to auscultation Cardiovascular: Rate/Rhythm: regular rate and regular rhythm Heart Sounds: normal S1, normal S2 and + murmur (Grade 1/6 systolic murmur at the apex) Gastrointestinal (Abdomen): Inspection/Auscultation: abdomen normal to inspection Musculoskeletal: Chronic 2+ edema bilateral lower extremities below the knees. Diffuse bilateral lumbar area tenderness. Well-healed surgical scars Skin: no rashes, warm and dry Neurologic: CN's II-XI intact bilaterally and moves all extremities; no focal motor deficits Results & Data Vital Signs (Past 12 Hours) Vital Signs Temp Pulse Pulse Resp BP BP Pulse Ox 11/14/18 18:19 36.9 C 65 18 136/78 96 11/14/18 15:36 36.9 C 65 19 141/73 H 95
[2018-11-15] MEDS: VANCOMYCIN HCL 1,500 MG in SODIUM CHLORIDE 0.9% 500 ML IV SCH ×3 (03:55→23:38)
[2018-11-15] MEDS: CEFEPIME 1,000 MG in SYRINGE 0 ML IV SCH ×3 (06:16→23:33)
[2018-11-15] MEDS: POLYETHYLENE (MIRALAX) 17 GM PACK PO SCH (08:16)
[2018-11-15] MEDS: PANTOprazole 40 MG TAB PO SCH (08:19)
[2018-11-15] MEDS: POTASSIUM CHLORIDE 20 MEQ TABCR PO SCH ×2 (08:20→20:31)
[2018-11-15] MEDS: FUROSEMIDE 40 MG TAB PO SCH (08:20)
[2018-11-15] MEDS: PROPRANOLOL HCL 20 MG TAB PO SCH ×2 (08:20→13:21)
[2018-11-15] MEDS: LACTULOSE SYRUP 10 GM/15 ML BTL 473 ML PO SCH ×3 (08:20→20:26)
[2018-11-15] MEDS: ISOSORBIDE MONO EXTENDED REL 60 MG TABCR PO SCH (08:20)
[2018-11-15] MEDS: ASPIRIN 81 MG ECTAB PO SCH (08:21)
[2018-11-15] MEDS: BuPROPion SR 100 MG TABCR PO SCH ×2 (08:21→20:31)
[2018-11-15] MEDS: DULOXETINE HCL 60 MG CAP PO SCH (08:21)
[2018-11-15] MEDS: dilTIAZem ER 180 MG CAPCR PO SCH (08:21)
[2018-11-15] MEDS: DICLOFENAC SOD 1% GEL 100 GM TUBE EXT SCH ×4 (08:21→20:32)
[2018-11-15] MEDS: EPLERENONE PO SCH (08:21)
[2018-11-15 08:33] LABS: Prothrombin Time 34.2 Seconds (9.0-12.0)
[2018-11-15 08:36] LABS: INR 3.7 (0.9-1.1)
[2018-11-15 08:45] LABS: BUN Creatinine Ratio 14.3 (10-20); Creatinine Clr Calc Pharmacy 133.9 ml/min; Est GFR (African American) 110.2; Est GFR (Non-African American) 95.1; Potassium 3.7 mmol/L (3.5-5.1)
[2018-11-15] MEDS ORDERED: DUTASTERIDE PO SCH (09:00)
[2018-11-15] MEDS: INSULIN ASPART 100 UNITS/ML 3 ML PEN SC SCH ×4 (09:36→20:43)
[2018-11-15 09:45] LABS: Eosinophils # (auto) 0.09 K/uL (0-0.5); Eosinophils % (auto) 2.6 %; Giant Platelets 2+; Hematocrit (blood only) 25.7 % (42-52); Hemoglobin 7.4 g/dL (14.0-18.0); Hypochromasia Present; Lymphocytes # (auto) 1.27 K/uL (1.2-3.4); Lymphocytes % (auto) 36.5 %; Mean Corpuscular Hgb Conc 28.8 g/dL (32-36); Mean Corpuscular Volume 59.4 fL (80-100); Monocytes % (auto) 11.5 %; Neutrophils # (auto) 1.72 K/uL (1.4-6.5); Neutrophils % (auto) 49.4 %; Platelet Count 102 K/uL (130-400); Platelet Estimate Decreased (Normal); Polychromasia 1+; RDW Coefficient of Variation 22.9 % (11.5-14.5); RDW Standard Deviation 48.5 fL (36.4-46.3); Red Blood Count 4.33 M/uL (4.7-6.1); Target Cells 2+; White Blood Count 3.48 K/uL (4.8-10.8)
--- NOTE | 2018-11-15 13:01 | Infectious Disease Progress Nt ---
Date of Service November 15, 2018 Assessment & Plan (1) Osteomyelitis of lumbar spine: continue IV abx for now, cultures negative to date. No abscess/collection noted on ct. If cultures negative, no new infection found, will likely resume chronic suppressive doxycycline 100mg po bid and follow with ID post d/c. no contraindication to d/c if no OR planned. Subjective pt seen in followup, eating lunch. doing well, states pain is 2/10. had MRI, fluid surrounding L1/L2-L3/L4 suggesting discitis, has h/o [employer] discitis on chronic doxy at home. Saw ortho, no plans of OR at this time. pt denies f/c. back pain improved. blood cultures remain negative. afebrile since admission. wbc 3.4. denies abd pain, no n/v/d, eating. no cp, sob, cough. no pain on exam, no radiation of pain into legs. Review of Systems Review of Systems: All systems reviewed & are unremarkable except as noted in HPI & below Physical Exam Constitutional: WD/WN, vitals as above Eyes: PERRL, conjunctivae normal, anicteric sclerae ENMT: external ear and nose normal, oropharynx normal Neck: normal visual inspection and trachea midline Respiratory: normal respiratory effort, lungs clear to auscultation Cardiovascular: RRR, no murmur, no edema Gastrointestinal (Abdomen): normal bowel sounds, soft, nontender, no hepatosplenomegaly Musculoskeletal: no cyanosis or clubbing, extremities motor strength 5/5 Skin: no rashes, warm and dry Psychiatric: A+Ox3, euthymic affect Results & Data Vital Signs (Past 12 Hours) Vital Signs Temp Pulse Resp BP Pulse Ox 11/15/18 08:00 36.9 C 70 16 167/88 H 96 Laboratory Results Microbiology 11/13/18 11:15 Blood Aerobic Blood Culture - Preliminary No growth in Aerobic bottle after 48 hours. 11/13/18 11:15 Blood Anaerobic Blood Culture - Preliminary No growth in Anaerobic bottle after 24 hours. 11/13/18 11:17 Blood Aerobic Blood Culture - Preliminary No growth in Aerobic bottle after 24 hours. 11/13/18 11:17 Blood Anaerobic Blood Culture - Preliminary No growth in Anaerobic bottle after 24 hours.
[2018-11-15] MEDS: FOLIC ACID 1 MG TAB PO SCH (13:21)
[2018-11-15] MEDS: MULTIVITAMIN TAB PO SCH (13:21)
[2018-11-15] MEDS: MAGNESIUM OXIDE 400 MG TAB PO SCH (13:21)
[2018-11-15] MEDS ORDERED: VANCOMYCIN TROUGH ONE (13:30)
[2018-11-15] MEDS: BACLOFEN 20 MG TAB PO PRN ×2 (13:54→22:25)
[2018-11-15] MEDS: OMEGA-3 (PURIFIED FISH OIL) 1 GM CAP PO SCH ×2 (14:34→20:31)
[2018-11-15 16:27] LABS: Ferritin 8.2 ng/ml (8-388)
[2018-11-15] MEDS: PROPRANOLOL HCL 10 MG TAB PO SCH (17:12)
[2018-11-15] MEDS ORDERED: SODIUM CHLORIDE 0.9% 250 ML IV PRN (19:18)
[2018-11-15] MEDS: WARFARIN SOD 7.5 MG TAB PO SCH (20:31)
[2018-11-15] MEDS: LISINOPRIL 10 MG TAB PO SCH (20:31)
[2018-11-15] MEDS: EZETIMIBE 10 MG TABLET PO SCH (20:31)
[2018-11-15] MEDS: TAMSULOSIN HCL 0.4 MG CAP PO SCH (20:31)
[2018-11-15] MEDS: INSULIN GLARGINE SOLOSTAR 100 UNITS/ML 3 ML PEN SQ SCH (20:44)
--- NOTE | 2018-11-15 22:21 | Hospitalist Progress Note ---
Date of Service November 15, 2018 Assessment & Plan (1) Fracture of lumbar spine: The patient denies recent falling or trauma but there is evidence of transverse process fracture on the right side at L1 and L2. Possible loosening of left S1 pedicle screw. Orthopedic consultation with Dr. Jung has been requested since they saw him recently bedrest. Pain control measures. Appreciate input. Appears to surgical intervention will be done as an outpatient. And treatment for focus on rehab. 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 No evidence of overt GI blood loss. Will consult hematology for further evaluation. Serial labs Appreciate input. Will monitor hemoglobin. Will transfuse one PRBC. Obtained consent. (3) Osteomyelitis of lumbar spine: Suggestion of osteomyelitis at the left S1 level in the region of the loose pedicle screw. Infectious disease consultation. Obtain blood cultures. Start vancomycin and cefepime. Appreciate input by ID. will continue with antibiotics. (4) Diabetes: The patient is insulin-dependent. ADA diet. Continue Basaglar. Sliding scale coverage as needed (5) Chronic systolic CHF (congestive heart failure): Appears to be stable. Patient does not appear to be volume overloaded. 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 Continue current medication management (7) Opioid dependence: He takes oxycodone at home. He will receive parenteral narcotics for pain control measure while hospitalized until he is able to be switched back to oral medication (8) Morbid obesity: BMI greater than 40 Spent 35 minutes in management of patient. \ Subjective 68 yo male reports his back pain is better controlled. He appears to be happier today. He has no new complaints. Review of Systems Review of Systems: All systems reviewed & are unremarkable except as noted in HPI & below Physical Exam Physical Exam: Constitutional: + morbidly obese; no acute distress, no altered mental status and no language barrier Eyes: PERRL, conjunctivae normal, anicteric sclerae ENMT: external ear and nose normal, oropharynx normal Neck: trachea midline, no thyromegaly Respiratory: normal respiratory effort, lungs clear to auscultation Cardiovascular: Rate/Rhythm: regular rate and regular rhythm Heart Sounds: normal S1, normal S2 and + murmur (Grade 1/6 systolic murmur at the apex) Gastrointestinal (Abdomen): Inspection/Auscultation: abdomen normal to inspection Musculoskeletal: Chronic 2+ edema bilateral lower extremities below the knees. Diffuse bilateral lumbar area tenderness. Improved range of motion of lumbar spine. Well-healed surgical scars Skin: no rashes, warm and dry Neurologic: CN's II-XI intact bilaterally and moves all extremities; no focal motor deficits Results & Data Vital Signs (Past 12 Hours) Vital Signs Temp Pulse Pulse Pulse Resp BP BP 11/15/18 21:35 37.1 C 48 L 16 148/77 H 11/15/18 21:05 37.1 C 48 L 17 158/52 H 11/15/18 20:50 154/84 H 11/15/18 20:35 36.2 C L 48 L 16 95/65 L 11/15/18 20:20 36.4 C L 54 L 18 156/86 H 11/15/18 20:05 36.5 C 52 L 16 165/75 H 11/15/18 17:09 37.1 C 46 L 18 116/65 11/15/18 15:10 36.8 C 41 L 18 BP Pulse Ox 11/15/18 21:35 95 11/15/18 21:05 95 11/15/18 20:50 11/15/18 20:35 95 11/15/18 20:20 94 11/15/18 20:05 98 11/15/18 17:09 95 11/15/18 15:10 128/66 95
[2018-11-16] MEDS: CEFEPIME 1,000 MG in SYRINGE 0 ML IV SCH ×3 (06:02→22:29)
[2018-11-16] MEDS ORDERED: Nursing to Pharmacy Communication ONE (06:08)
[2018-11-16 06:43] LABS: Mean Corpuscular Hgb Conc 30.2 g/dL (32-36); Nucleated RBC # (auto) 0.03 K/uL (0-0); Nucleated RBC % (auto) 0.9 %
[2018-11-16 06:49] LABS: INR 3.5 (0.9-1.1); Prothrombin Time 32.4 Seconds (9.0-12.0)
[2018-11-16 07:09] LABS: Hematocrit (blood only) 26.8 % (42-52); Hemoglobin 8.1 g/dL (14.0-18.0); Mean Corpuscular Volume 60.2 fL (80-100); RDW Coefficient of Variation 24.2 % (11.5-14.5); RDW Standard Deviation 52.1 fL (36.4-46.3); Red Blood Count 4.45 M/uL (4.7-6.1); White Blood Count 3.56 K/uL (4.8-10.8)
[2018-11-16 07:17] LABS: BUN Creatinine Ratio 11.5 (10-20); Calcium 8.3 mg/dl (8.5-10.1); Creatinine Clr Calc Pharmacy 154.2 ml/min; Est GFR (African American) 116.8; Est GFR (Non-African American) 100.7; Potassium 3.5 mmol/L (3.5-5.1)
[2018-11-16 07:24] LABS: Anisocytosis Present; Eosinophils % (auto) 2.8 %; Hypochromasia Present; Lymphocytes # (auto) 0.91 K/uL (1.2-3.4); Lymphocytes % (auto) 25.6 %; Microcytosis Present; Monocytes # (auto) 0.51 K/uL (0.11-0.59); Monocytes % (auto) 14.3 %; Neutrophils # (auto) 2.04 K/uL (1.4-6.5); Neutrophils % (auto) 57.3 %; Platelet Count 96 K/uL (130-400); Platelet Estimate Decreased (Normal); Target Cells 1+
[2018-11-16] MEDS: EPLERENONE PO SCH (09:19)
[2018-11-16] MEDS: POTASSIUM CHLORIDE 20 MEQ TABCR PO SCH ×2 (09:19→20:31)
--- NOTE | 2018-11-16 09:19 | Pharmacy Report ---
Pharmacy Abx Dose Short Note - Date of Service November 16, 2018 - Assessment & Plan Assessment 68 year old M receiving IV vancomycin and cefepime for treatment of Osteomyelitis of lumbar spine: Per ID:continue IV abx for now, cultures negative to date. No abscess/collection noted on ct. If cultures negative, no new infection found, will likely resume chronic suppressive doxycycline 100mg po bid and follow with ID post d/c. no contraindication to d/c if no OR planned. Day # 4 of antimicrobial therapy. Plan Vancomycin * Trough level of 13.5 mcg/mL is slightly subtherapeutic, but d/t obesity and propensity to accumulation, * Continue dose of 1500 mg IV every 10 hours * Goal trough level for osteo : 15 to 20 mcg/mL * Trough level ordered for: 11/17/18 prior to 0600 dose * if this is still subtherapeutic will consider increasing to 1750mg IV Q10H Pharmacy will continue to follow and will adjust dose/frequency as necessary. Thank you.
[2018-11-16] MEDS: PROPRANOLOL HCL 10 MG TAB PO SCH ×3 (09:20→17:09)
[2018-11-16] MEDS: dilTIAZem ER 180 MG CAPCR PO SCH (09:20)
[2018-11-16] MEDS: DICLOFENAC SOD 1% GEL 100 GM TUBE EXT SCH ×4 (09:20→20:31)
[2018-11-16] MEDS: FUROSEMIDE 40 MG TAB PO SCH (09:20)
[2018-11-16] MEDS: ASPIRIN 81 MG ECTAB PO SCH (09:21)
[2018-11-16] MEDS: PANTOprazole 40 MG TAB PO SCH (09:21)
[2018-11-16] MEDS: BuPROPion SR 100 MG TABCR PO SCH ×2 (09:21→20:31)
[2018-11-16] MEDS: ISOSORBIDE MONO EXTENDED REL 60 MG TABCR PO SCH (09:22)
[2018-11-16] MEDS: DULOXETINE HCL 60 MG CAP PO SCH (09:22)
[2018-11-16] MEDS: POLYETHYLENE (MIRALAX) 17 GM PACK PO SCH (09:23)
[2018-11-16] MEDS: LACTULOSE SYRUP 10 GM/15 ML BTL 473 ML PO SCH ×3 (09:23→20:32)
[2018-11-16] MEDS: INSULIN ASPART 100 UNITS/ML 3 ML PEN SC SCH ×4 (09:24→21:10)
[2018-11-16] MEDS: VANCOMYCIN HCL 1,500 MG in SODIUM CHLORIDE 0.9% 500 ML IV SCH ×2 (09:28→20:15)
[2018-11-16 11:07] LABS: Albumin Level 2.6 gm/dl (3.4-5.0); Bilirubin Direct 0.2 mg/dl (0-0.2); Bilirubin,Total 0.9 mg/dl (0.2-1); Total Protein 6.6 gm/dl (6.4-8.2)
[2018-11-16] MEDS: OMEGA-3 (PURIFIED FISH OIL) 1 GM CAP PO SCH ×2 (12:23→20:31)
[2018-11-16] MEDS: MULTIVITAMIN TAB PO SCH (12:23)
[2018-11-16] MEDS: MAGNESIUM OXIDE 400 MG TAB PO SCH (12:24)
[2018-11-16] MEDS: FOLIC ACID 1 MG TAB PO SCH (12:24)
--- NOTE | 2018-11-16 15:02 | Infectious Disease Progress Nt ---
Date of Service November 16, 2018 Assessment & Plan (1) Osteomyelitis of lumbar spine: continue IV abx for now, cultures negative to date. No abscess/collection noted on ct. If cultures negative, no new infection found, will l resume chronic suppressive doxycycline 100mg po bid and follow with ID post d/c. discussed with patient at length yesterday, he does not wish to undergo IV abx in the absence of + cultures. no contraindication to d/c if no OR planned. Subjective No plans for OR, remains afebrile. blood cultures remain negative, on IV abx currenlty. Results & Data Vital Signs (Past 12 Hours) Vital Signs Temp Pulse Pulse Resp BP BP Pulse Ox 11/16/18 12:22 53 L 126/56 L 11/16/18 07:04 36.1 C L 64 18 151/77 H 96 Laboratory Results Microbiology 11/13/18 11:15 Blood Aerobic Blood Culture - Preliminary No growth in Aerobic bottle after 48 hours. 11/13/18 11:15 Blood Anaerobic Blood Culture - Preliminary No growth in Anaerobic bottle after 48 hours. 11/13/18 11:17 Blood Aerobic Blood Culture - Preliminary No growth in Aerobic bottle after 48 hours. 11/13/18 11:17 Blood Anaerobic Blood Culture - Preliminary No growth in Anaerobic bottle after 48 hours.
[2018-11-16] MEDS: TAMSULOSIN HCL 0.4 MG CAP PO SCH (20:31)
[2018-11-16] MEDS: LISINOPRIL 10 MG TAB PO SCH (20:31)
[2018-11-16] MEDS: DUTASTERIDE PO SCH (20:31)
[2018-11-16] MEDS: WARFARIN SOD 7.5 MG TAB PO SCH (20:31)
[2018-11-16] MEDS: EZETIMIBE 10 MG TABLET PO SCH (20:31)
[2018-11-16] MEDS: BACLOFEN 20 MG TAB PO PRN (20:46)
--- NOTE | 2018-11-16 20:56 | Progress Note ---
DATE: 11/16/2018 SUBJECTIVE: hCivo subjectively is improving on today's date. I saw him at approximately 5:00 in the afternoon. He has better motion, decreased pain. He is out of bed, he is standing. Pain is markedly controlled. OBJECTIVE: Neurologically intact. IMAGING DATA: New MRI scan demonstrates some early diskitis about the lumbar spine, ____ L1-L2, L2-L3. There is some edema which could be consistent with osteomyelitis, I agree. There is no evidence of a paraspinal edema, so would argue against infection. He has compression deformity of L2, postsurgical changes along with instrumentation from prior fusion. IMPRESSION: Delightful gentleman with complex spinal pathology with no gross instability now, although it is very concerning with his diskitis and the potential osteomyelitis, the prior surgery, and the breakdown on the spine. PLAN: At this point in time, he is not optimal for any type of surgical intervention and surgery to control this pathology would be significant lumbar spine procedure. We have to get high up into the lower thoracic areas, at least thoracic 10, 11 and 12 to bridge the unstable segment. Again, he is suboptimal, his hemoglobin is low. He has a thalassemia plus this comorbidity of obesity, so I think we should try to avoid surgical intervention. There is no acute process. We will fit him for a brace. We will keep him on the medication. I will try to follow him approximately every 24-48 hours.
[2018-11-16] MEDS: INSULIN GLARGINE SOLOSTAR 100 UNITS/ML 3 ML PEN SQ SCH (21:09)
--- NOTE | 2018-11-16 23:04 | Hospitalist Progress Note ---
Date of Service November 16, 2018 Assessment & Plan (1) Fracture of lumbar spine: The patient denies recent falling or trauma but there is evidence of transverse process fracture on the right side at L1 and L2. Possible loosening of left S1 pedicle screw. Orthopedic consultation with Dr. Jung has been requested since they saw him recently bedrest. Pain control measures. Appreciate input. Appears to surgical intervention will be done as an outpatient. And treatment for focus on rehab. Awaiting placement. 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 No evidence of overt GI blood loss. Will consult hematology for further evaluation. Serial labs Appreciate input. Will monitor hemoglobin. Will transfuse one PRBC. Obtained consent. (3) Osteomyelitis of lumbar spine: Suggestion of osteomyelitis at the left S1 level in the region of the loose pedicle screw. Infectious disease consultation. Obtain blood cultures. Start vancomycin and cefepime. Appreciate input by ID. will continue with antibiotics for now. Awaiitng cultures. Procalcitonin is negative, which makes this diagnosis less likely. (4) Diabetes: The patient is insulin-dependent. ADA diet. Continue Basaglar. Sliding scale coverage as needed (5) Chronic systolic CHF (congestive heart failure): Appears to be stable. Patient does not appear to be volume overloaded. 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 Continue current medication management (7) Opioid dependence: He takes oxycodone at home. He will receive parenteral narcotics for pain control measure while hospitalized until he is able to be switched back to oral medication (8) Morbid obesity: BMI greater than 40 Spent 25 minutes in management of patient. \ Subjective Patient reports no significant changes today. Review of Systems Review of Systems: All systems reviewed & are unremarkable except as noted in HPI & below Physical Exam Physical Exam: Constitutional: + morbidly obese; no acute distress, no altered mental status and no language barrier Eyes: PERRL, conjunctivae normal, anicteric sclerae ENMT: external ear and nose normal, oropharynx normal Neck: trachea midline, no thyromegaly Respiratory: normal respiratory effort, lungs clear to auscultation Cardiovascular: Rate/Rhythm: regular rate and regular rhythm Heart Sounds: normal S1, normal S2 and + murmur (Grade 1/6 systolic murmur at the apex) Gastrointestinal (Abdomen): Inspection/Auscultation: abdomen normal to inspection Musculoskeletal: Chronic 2+ edema bilateral lower extremities below the knees. decrerased bilateral lumbar area tenderness. Improved range of motion of lumbar spine. Well-healed surgical scars Skin: no rashes, warm and dry Neurologic: CN's II-XI intact bilaterally and moves all extremities; no focal motor deficits Results & Data Vital Signs (Past 12 Hours) Vital Signs Temp Pulse Pulse Pulse Resp BP BP 11/16/18 17:08 37.1 C 56 L 20 144/74 H 11/16/18 16:03 36.8 C 50 L 16 134/74 11/16/18 12:22 53 L 126/56 L Pulse Ox 11/16/18 17:08 97 11/16/18 16:03 98 11/16/18 12:22
[2018-11-17] MEDS ORDERED: VANCOMYCIN TROUGH ONE (05:30)
[2018-11-17] MEDS: VANCOMYCIN HCL 1,500 MG in SODIUM CHLORIDE 0.9% 500 ML IV SCH (05:59)
[2018-11-17] MEDS: CEFEPIME 1,000 MG in SYRINGE 0 ML IV SCH ×3 (05:59→23:41)
[2018-11-17] MEDS: BACLOFEN 20 MG TAB PO PRN ×2 (07:58→21:33)
[2018-11-17] MEDS ORDERED: SODIUM CHLORIDE 0.9% 250 ML IV PRN ×2 (08:18→09:01)
[2018-11-17] MEDS: PROPRANOLOL HCL 10 MG TAB PO SCH ×3 (09:20→17:20)
[2018-11-17] MEDS: POLYETHYLENE (MIRALAX) 17 GM PACK PO SCH (09:20)
[2018-11-17] MEDS: EPLERENONE PO SCH (09:20)
[2018-11-17] MEDS: FUROSEMIDE 40 MG TAB PO SCH (09:21)
[2018-11-17] MEDS: dilTIAZem ER 180 MG CAPCR PO SCH (09:21)
[2018-11-17] MEDS: ASPIRIN 81 MG ECTAB PO SCH (09:21)
[2018-11-17] MEDS: PANTOprazole 40 MG TAB PO SCH (09:21)
[2018-11-17] MEDS: BuPROPion SR 100 MG TABCR PO SCH ×2 (09:22→21:08)
[2018-11-17] MEDS: ISOSORBIDE MONO EXTENDED REL 60 MG TABCR PO SCH (09:22)
[2018-11-17] MEDS: DULOXETINE HCL 60 MG CAP PO SCH (09:22)
[2018-11-17] MEDS: POTASSIUM CHLORIDE 20 MEQ TABCR PO SCH ×2 (09:22→21:07)
[2018-11-17] MEDS: LACTULOSE SYRUP 10 GM/15 ML BTL 473 ML PO SCH ×3 (09:23→21:01)
[2018-11-17] MEDS: DICLOFENAC SOD 1% GEL 100 GM TUBE EXT SCH ×4 (09:23→21:08)
[2018-11-17] MEDS: INSULIN ASPART 100 UNITS/ML 3 ML PEN SC SCH ×4 (09:26→21:11)
[2018-11-17] MEDS: OMEGA-3 (PURIFIED FISH OIL) 1 GM CAP PO SCH ×2 (12:08→21:07)
[2018-11-17] MEDS: MULTIVITAMIN TAB PO SCH (12:08)
[2018-11-17] MEDS: FOLIC ACID 1 MG TAB PO SCH (12:09)
[2018-11-17] MEDS: MAGNESIUM OXIDE 400 MG TAB PO SCH (12:09)
--- NOTE | 2018-11-17 15:00 | Pharmacy Report ---
Pharmacy Abx Dose Short Note - Date of Service November 17, 2018 - Assessment & Plan A/P Trough subtherapeutic, 13.2mcg/mL. Will increase dose: 1500--->1750mg IV q10. Will check lvl tomorrow prior to the third maintenance dose. Pharmacy will continue to follow and will adjust dose/frequency as necessary. Thank you.
[2018-11-17] MEDS: MoRPHine SULFATE 2 MG/ML CARP IV PRN (16:07)
[2018-11-17] MEDS: VANCOMYCIN HCL 1,750 MG in SODIUM CHLORIDE 0.9% 500 ML IV SCH (16:51)
[2018-11-17] MEDS: ONDANSETRON INJ 2 MG/ML 2 ML VIAL IV PRN (18:25)
[2018-11-17] MEDS: TAMSULOSIN HCL 0.4 MG CAP PO SCH (21:06)
[2018-11-17] MEDS: DUTASTERIDE PO SCH (21:06)
[2018-11-17] MEDS: LISINOPRIL 10 MG TAB PO SCH (21:08)
[2018-11-17] MEDS: EZETIMIBE 10 MG TABLET PO SCH (21:09)
[2018-11-17] MEDS: INSULIN GLARGINE SOLOSTAR 100 UNITS/ML 3 ML PEN SQ SCH (21:11)
[2018-11-17] MEDS: WARFARIN SOD 7.5 MG TAB PO SCH (21:32)
--- NOTE | 2018-11-17 22:58 | Hospitalist Progress Note ---
Date of Service November 17, 2018 Assessment & Plan (1) Fracture of lumbar spine: The patient denies recent falling or trauma but there is evidence of transverse process fracture on the right side at L1 and L2. Possible loosening of left S1 pedicle screw. Orthopedic consultation with Dr. Jung has been requested since they saw him recently bedrest. Pain control measures. Appreciate input. Appears to surgical intervention will be done as an outpatient. And treatment for focus on rehab. 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 No evidence of overt GI blood loss. Will consult hematology for further evaluation. Serial labs Appreciate input. Will monitor hemoglobin. Will transfuse second PRBC, patient hemoglobin only raised slightly. Patient though has no evidence of GI blood loss. Obtained consent. (3) Osteomyelitis of lumbar spine: Suggestion of osteomyelitis at the left S1 level in the region of the loose pedicle screw. Infectious disease consultation. Obtain blood cultures. Start vancomycin and cefepime. Appreciate input by ID. will continue with antibiotics. Awaiting finalized cultures. (4) Diabetes: The patient is insulin-dependent. ADA diet. Continue Basaglar. Sliding scale coverage as needed (5) Chronic systolic CHF (congestive heart failure): Appears to be stable. Patient does not appear to be volume overloaded. 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 Continue current medication management (7) Opioid dependence: He takes oxycodone at home. He will receive parenteral narcotics for pain control measure while hospitalized until he is able to be switched back to oral medication (8) Morbid obesity: BMI greater than 40 Spent 25 minutes in management of patient. \ Subjective Patient reports no fever, chills, nausea, vomting. Patient reports being more active. Denies new symptoms. Review of Systems Review of Systems: All systems reviewed & are unremarkable except as noted in HPI & below Physical Exam Physical Exam: Constitutional: + morbidly obese; no acute distress, no altered mental status and no language barrier Eyes: PERRL, conjunctivae normal, anicteric sclerae ENMT: external ear and nose normal, oropharynx normal Neck: trachea midline, no thyromegaly Respiratory: normal respiratory effort, lungs clear to auscultation Cardiovascular: Rate/Rhythm: regular rate and regular rhythm Heart Sounds: normal S1, normal S2 and + murmur (Grade 1/6 systolic murmur at the apex) Gastrointestinal (Abdomen): Inspection/Auscultation: abdomen normal to inspecti on Musculoskeletal: Chronic 2+ edema bilateral lower extremities below the knees. decrerased bilateral lumbar area tenderness. Improved range of motion of lumbar spine. Well-healed surgical scars Skin: no rashes, warm and dry Neurologic: CN's II-XI intact bilaterally and moves all extremities; no focal motor deficits Results & Data Vital Signs (Past 12 Hours) Vital Signs Temp Pulse Pulse Resp BP BP Pulse Ox 11/17/18 15:51 37.0 C 51 L 17 112/59 L 99 11/17/18 14:52 37.2 C 72 18 160/90 H 11/17/18 14:30 37.1 C 51 L 18 144/76 H 99 11/17/18 13:13 37.1 C 55 L 18 138/76 95 11/17/18 12:45 98 11/17/18 12:34 37.2 C 64 18 148/77 H 98 11/17/18 12:06 37.3 C 67 18 165/85 H 98 11/17/18 11:54 37.3 C 70 18 142/73 H 99 11/17/18 11:39 37.2 C 72 18 160/90 H
[2018-11-18] MEDS: VANCOMYCIN HCL 1,750 MG in SODIUM CHLORIDE 0.9% 500 ML IV SCH ×3 (02:49→19:50)
[2018-11-18] MEDS: CEFEPIME 1,000 MG in SYRINGE 0 ML IV SCH ×3 (06:22→23:18)
[2018-11-18 06:54] LABS: Mean Corpuscular Hgb Conc 30.6 g/dL (32-36); Nucleated RBC # (auto) 0.02 K/uL (0-0); Nucleated RBC % (auto) 0.7 %
[2018-11-18 06:59] LABS: INR 2.9 (0.9-1.1)
[2018-11-18 07:22] LABS: BUN Creatinine Ratio 8.2 (10-20); Calcium 8.2 mg/dl (8.5-10.1); Est GFR (African American) 118.3; Potassium 3.3 mmol/L (3.5-5.1)
[2018-11-18 07:27] LABS: Hematocrit (blood only) 27.8 % (42-52); Hemoglobin 8.5 g/dL (14.0-18.0); Mean Corpuscular Volume 61.4 fL (80-100); RDW Coefficient of Variation 25.5 % (11.5-14.5); RDW Standard Deviation 56.7 fL (36.4-46.3); Red Blood Count 4.53 M/uL (4.7-6.1); White Blood Count 3.49 K/uL (4.8-10.8)
[2018-11-18 07:58] LABS: Platelet Count 98 K/uL (130-400)
[2018-11-18] MEDS: INSULIN ASPART 100 UNITS/ML 3 ML PEN SC SCH ×4 (08:45→21:17)
[2018-11-18] MEDS: EPLERENONE PO SCH (08:45)
[2018-11-18] MEDS: BuPROPion SR 100 MG TABCR PO SCH ×2 (08:45→21:07)
[2018-11-18] MEDS: PANTOprazole 40 MG TAB PO SCH (08:45)
[2018-11-18] MEDS: dilTIAZem ER 180 MG CAPCR PO SCH (08:45)
[2018-11-18] MEDS: FUROSEMIDE 40 MG TAB PO SCH (08:46)
[2018-11-18] MEDS: ISOSORBIDE MONO EXTENDED REL 60 MG TABCR PO SCH (08:46)
[2018-11-18] MEDS: POTASSIUM CHLORIDE 20 MEQ TABCR PO SCH ×2 (08:46→21:07)
[2018-11-18] MEDS: DULOXETINE HCL 60 MG CAP PO SCH (08:46)
[2018-11-18] MEDS: DICLOFENAC SOD 1% GEL 100 GM TUBE EXT SCH ×4 (08:47→21:06)
[2018-11-18] MEDS: ASPIRIN 81 MG ECTAB PO SCH (08:47)
[2018-11-18] MEDS: LACTULOSE SYRUP 10 GM/15 ML BTL 473 ML PO SCH ×3 (08:47→21:08)
[2018-11-18] MEDS: PROPRANOLOL HCL 10 MG TAB PO SCH ×3 (08:47→17:12)
[2018-11-18] MEDS: POLYETHYLENE (MIRALAX) 17 GM PACK PO SCH (08:48)
--- NOTE | 2018-11-18 09:03 | Progress Note ---
DATE: 11/18/2018 SUBJECTIVE: Chivo is resting comfortably this morning. He has no complaints of pain. OBJECTIVE: Vital signs are stable and he is neurologically intact. Images reviewed. IMPRESSION: Morbid obesity, opioid dependence, cirrhosis of liver, heart failure, osteomyelitis and instability of his lumbar spine, diabetes, anemia of chronicity, hypertension. PLAN: At this point in time, he truly is a nonsurgical candidate. Ordered a back brace, because of his obesity, it could not be fitted. It can be modified on Tuesday which is in 48 hours. Otherwise, he can be up on his feet and ambulatory. I am not sure the brace is absolutely needed to get him ambulatory. It is an adjunct to his care versus necessity. I will continue to follow.
[2018-11-18] MEDS: MAGNESIUM OXIDE 400 MG TAB PO SCH (11:20)
[2018-11-18] MEDS: FOLIC ACID 1 MG TAB PO SCH (11:20)
[2018-11-18] MEDS: OMEGA-3 (PURIFIED FISH OIL) 1 GM CAP PO SCH ×2 (11:20→21:07)
[2018-11-18] MEDS: MULTIVITAMIN TAB PO SCH (11:20)
[2018-11-18] MEDS ORDERED: VANCOMYCIN TROUGH ONE (11:30)
--- NOTE | 2018-11-18 13:26 | Pharmacy Report ---
Pharmacy Abx Dose Short Note - Date of Service November 18, 2018 - Assessment & Plan Assessment 68 year old M receiving Vancomycin 1750mg IV Q10h for treatment of osteomyelitis of lumbar spine. Day # 6 of antimicrobial therapy. Laboratory Tests 11/18/18 11:17 Vancomycin Trough 14.8 Plan Vancomycin * Trough level of 14.8 mcg/mL is subtherapeutic. * Change to 1750 mg IV every 8 hours * May need to adjust dose down if/when patient begins to accumulate -- BMI 43.7. * Goal trough level : 15 to 20 mcg/mL * Trough or random level ordered for: 11/19/18 before 2000 dose. Pharmacy will continue to follow and will adjust dose/frequency as necessary. Thank you.
[2018-11-18] MEDS: MoRPHine SULFATE 2 MG/ML CARP IV PRN (20:59)
[2018-11-18] MEDS: LISINOPRIL 10 MG TAB PO SCH (21:06)
[2018-11-18] MEDS: WARFARIN SOD 7.5 MG TAB PO SCH (21:07)
[2018-11-18] MEDS: TAMSULOSIN HCL 0.4 MG CAP PO SCH (21:07)
[2018-11-18] MEDS: EZETIMIBE 10 MG TABLET PO SCH (21:07)
[2018-11-18] MEDS: DUTASTERIDE PO SCH (21:08)
[2018-11-18] MEDS: INSULIN GLARGINE SOLOSTAR 100 UNITS/ML 3 ML PEN SQ SCH (21:14)
--- NOTE | 2018-11-18 23:53 | Hospitalist Progress Note ---
Date of Service November 18, 2018 Assessment & Plan (1) Fracture of lumbar spine: The patient denies recent falling or trauma but there is evidence of transverse process fracture on the right side at L1 and L2. Possible loosening of left S1 pedicle screw. Orthopedic consultation with Dr. Jung has been requested since they saw him recently bedrest. Pain control measures. Appreciate input. Appears to surgical intervention will be done as an outpatient. And treatment for focus on rehab. Awaiting placement. 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 No evidence of overt GI blood loss. Will consult hematology for further evaluation. Serial labs Appreciate input. Transfused 2 PRBC. Hemglobin increased by 1.1 Will monitor. Obtained consent. (3) Osteomyelitis of lumbar spine: Suggestion of osteomyelitis at the left S1 level in the region of the loose pedicle screw. Infectious disease consultation. Obtain blood cultures. Start vancomycin and cefepime. Appreciate input by ID. will continue with antibiotics. Awaiting finalized cultures. Procalcitonin is negative. (4) Diabetes: The patient is insulin-dependent. ADA diet. Continue Basaglar. Sliding scale coverage as needed (5) Chronic systolic CHF (congestive heart failure): Appears to be stable. Patient does not appear to be volume overloaded. 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 Continue current medication management Held beta mary due to bradycardia. will consider restarting at lower dose if HR increases. Patient had varices, may need to restart BB at lower dose. But patient was symptomatic, low energy and sob on exertion. Hr was in 40s prior to stopping. (7) Opioid dependence: He takes oxycodone at home. He will receive parenteral narcotics for pain control measure while hospitalized until he is able to be switched back to oral medication (8) Morbid obesity: BMI greater than 40 Spent 25 minutes in management of patient. \ Awaiting placement Subjective Patient reports no new symptoms. Review of Systems Review of Systems: All systems reviewed & are unremarkable except as noted in HPI & below Physical Exam Physical Exam: Constitutional: + morbidly obese; no acute distress, no altered mental status and no language barrier Eyes: PERRL, conjunctivae normal, anicteric sclerae ENMT: external ear and nose normal, oropharynx normal Neck: trachea midline, no thyromegaly Respiratory: normal respiratory effort, lungs clear to auscultation Cardiovascular: Rate/Rhythm: regular rate and regular rhythm Heart Sounds: normal S1, normal S2 and + murmur (Grade 1/6 systolic murmur at the apex) Gastrointestinal (Abdomen): Inspection/Auscultation: abdomen normal to inspection Musculoskeletal: Chronic 2+ edema bilateral lower extremities below the knees. decrerased bilateral lumbar area tenderness. Improved range of motion of lumbar spine. Well-healed surgical scars Skin: no rashes, warm and dry Neurologic: CN's II-XI intact bilaterally and moves all extremities; no focal motor deficits Results & Data Vital Signs (Past 12 Hours) Vital Signs Temp Pulse Pulse Resp BP BP Pulse Ox 11/18/18 22:50 37 C 67 18 153/84 H 97 11/18/18 20:58 53 L 125/65 11/18/18 17:11 50 L 130/62 11/18/18 14:48 37.0 C 66 20 115/49 L 97
[2018-11-19] MEDS: BACLOFEN 20 MG TAB PO PRN ×3 (00:01→19:54)
[2018-11-19] MEDS: VANCOMYCIN HCL 1,750 MG in SODIUM CHLORIDE 0.9% 500 ML IV SCH ×2 (04:17→11:15)
[2018-11-19] MEDS: CEFEPIME 1,000 MG in SYRINGE 0 ML IV SCH (07:02)
[2018-11-19] MEDS: INSULIN ASPART 100 UNITS/ML 3 ML PEN SC SCH ×4 (08:29→21:56)
[2018-11-19] MEDS: dilTIAZem ER 180 MG CAPCR PO SCH (08:29)
[2018-11-19] MEDS: DULOXETINE HCL 60 MG CAP PO SCH (08:30)
[2018-11-19] MEDS: ISOSORBIDE MONO EXTENDED REL 60 MG TABCR PO SCH (08:30)
[2018-11-19] MEDS: BuPROPion SR 100 MG TABCR PO SCH ×2 (08:30→21:51)
[2018-11-19] MEDS: PANTOprazole 40 MG TAB PO SCH (08:30)
[2018-11-19] MEDS: LACTULOSE SYRUP 10 GM/15 ML BTL 473 ML PO SCH ×3 (08:31→21:51)
[2018-11-19] MEDS: FUROSEMIDE 40 MG TAB PO SCH (08:31)
[2018-11-19] MEDS: ASPIRIN 81 MG ECTAB PO SCH (08:31)
[2018-11-19] MEDS: DICLOFENAC SOD 1% GEL 100 GM TUBE EXT SCH ×4 (08:31→21:52)
[2018-11-19] MEDS: POTASSIUM CHLORIDE 20 MEQ TABCR PO SCH ×2 (08:31→21:51)
[2018-11-19] MEDS: POLYETHYLENE (MIRALAX) 17 GM PACK PO SCH (08:32)
[2018-11-19] MEDS: EPLERENONE PO SCH (08:34)
[2018-11-19] MEDS: OMEGA-3 (PURIFIED FISH OIL) 1 GM CAP PO SCH ×2 (11:15→21:51)
[2018-11-19] MEDS: MAGNESIUM OXIDE 400 MG TAB PO SCH (11:15)
[2018-11-19] MEDS: MULTIVITAMIN TAB PO SCH (11:15)
[2018-11-19] MEDS: FOLIC ACID 1 MG TAB PO SCH (11:15)
[2018-11-19] MEDS ORDERED: VANCOMYCIN TROUGH ONE (19:30)
[2018-11-19] MEDS: WARFARIN SOD 7.5 MG TAB PO SCH (21:51)
[2018-11-19] MEDS: EZETIMIBE 10 MG TABLET PO SCH (21:51)
[2018-11-19] MEDS: DOXYCYCLINE HYCLATE 100 MG CAP PO SCH (21:51)
[2018-11-19] MEDS: TAMSULOSIN HCL 0.4 MG CAP PO SCH (21:51)
[2018-11-19] MEDS: DUTASTERIDE PO SCH (21:51)
[2018-11-19] MEDS: LISINOPRIL 10 MG TAB PO SCH (21:51)
[2018-11-19] MEDS: INSULIN GLARGINE SOLOSTAR 100 UNITS/ML 3 ML PEN SQ SCH (21:55)
--- NOTE | 2018-11-19 22:54 | Hospitalist Progress Note ---
Date of Service November 19, 2018 Assessment & Plan (1) Fracture of lumbar spine: The patient denies recent falling or trauma but there is evidence of transverse process fracture on the right side at L1 and L2. Possible loosening of left S1 pedicle screw. Orthopedic consultation with Dr. Jung has been requested since they saw him recently bedrest. Pain control measures. Appreciate input. Appears to surgical intervention will be done as an outpatient. And treatment for focus on rehab. Awaiting placement. 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 No evidence of overt GI blood loss. Will consult hematology for further evaluation. Serial labs Appreciate input. Transfused 2 PRBC. Hemglobin increased by 1.1 Will monitor. Obtained consent. (3) Osteomyelitis of lumbar spine: Suggestion of osteomyelitis at the left S1 level in the region of the loose pedicle screw. Infectious disease consultation. Obtain blood cultures. Start vancomycin and cefepime. Appreciate input by ID. finalized neg cultures. negative procalcitonin. Stop IV antibioitcs on 11/19 Will resume Doxycycline PO.. (4) Diabetes: The patient is insulin-dependent. ADA diet. Continue Basaglar. Sliding scale coverage as needed (5) Chronic systolic CHF (congestive heart failure): Appears to be stable. Patient does not appear to be volume overloaded. 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 Continue current medication management Held beta mary due to bradycardia. will consider restarting at lower dose if HR increases. Patient had varices, may need to restart BB at lower dose. But patient was symptomatic, low energy and sob on exertion. Hr was in 40s prior to stopping. HR has been in 60s after stopping bb Unsure of benefit OF resuming propranolol. (7) Opioid dependence: He takes oxycodone at home. He will receive parenteral narcotics for pain control measure while hospitalized until he is able to be switched back to oral medication (8) Morbid obesity: BMI greater than 40 Spent 25 minutes in management of patient. \ Awaiting placement Subjective Patient reports no new symptoms today. Review of Systems Review of Systems: All systems reviewed & are unremarkable except as noted in HPI & below Physical Exam Physical Exam: Constitutional: + morbidly obese; no acute distress, no altered mental status and no language barrier Eyes: PERRL, conjunctivae normal, anicteric sclerae ENMT: external ear and nose normal, oropharynx normal Neck: trachea midline, no thyromegaly Respiratory: normal respiratory effort, lungs clear to auscultation Cardiovascular: Rate/Rhythm: regular rate and regular rhythm Heart Sounds: normal S1, normal S2 and + murmur (Grade 1/6 systolic murmur at the apex) Gastrointestinal (Abdomen): Inspection/Auscultation: abdomen normal to inspection Musculoskeletal: Chronic 2+ edema bilateral lower extremities below the knees. decrerased bilateral lumbar area tenderness. Improved range of motion of lumbar spine. Well-healed surgical scars Skin: no rashes, warm and dry Neurologic: CN's II-XI intact bilaterally and moves all extremities; no focal motor deficits Results & Data Vital Signs (Past 12 Hours) Vital Signs Temp Pulse Resp BP Pulse Ox 11/19/18 15:29 53 L 11/19/18 15:04 36.9 C 20 137/74 95
[2018-11-20] MEDS: MoRPHine SULFATE 2 MG/ML CARP IV PRN ×2 (03:34→08:28)
[2018-11-20 06:53] LABS: Mean Corpuscular Hgb Conc 30.7 g/dL (32-36)
[2018-11-20 07:02] LABS: Hematocrit (blood only) 26.4 % (42-52); Hemoglobin 8.1 g/dL (14.0-18.0); Mean Corpuscular Volume 61.5 fL (80-100); RDW Coefficient of Variation 26.2 % (11.5-14.5); RDW Standard Deviation 57.7 fL (36.4-46.3); Red Blood Count 4.29 M/uL (4.7-6.1); White Blood Count 3.84 K/uL (4.8-10.8)
[2018-11-20 07:09] LABS: Platelet Count 88 K/uL (130-400)
[2018-11-20 07:22] LABS: BUN Creatinine Ratio 7.4 (10-20); Creatinine Clr Calc Pharmacy 147.5 ml/min; Est GFR (African American) 114.7; Est GFR (Non-African American) 98.9; Potassium 3.3 mmol/L (3.5-5.1)
[2018-11-20 07:27] LABS: INR 2.5 (0.9-1.1); Prothrombin Time 24.2 Seconds (9.0-12.0)
[2018-11-20] MEDS: DICLOFENAC SOD 1% GEL 100 GM TUBE EXT SCH ×4 (08:19→21:04)
[2018-11-20] MEDS: POTASSIUM CHLORIDE 20 MEQ TABCR PO SCH ×2 (08:20→21:04)
[2018-11-20] MEDS: BuPROPion SR 100 MG TABCR PO SCH ×2 (08:20→21:04)
[2018-11-20] MEDS: PANTOprazole 40 MG TAB PO SCH (08:20)
[2018-11-20] MEDS: DULOXETINE HCL 60 MG CAP PO SCH (08:20)
[2018-11-20] MEDS: dilTIAZem ER 180 MG CAPCR PO SCH (08:20)
[2018-11-20] MEDS: DOXYCYCLINE HYCLATE 100 MG CAP PO SCH ×2 (08:20→21:04)
[2018-11-20] MEDS: FUROSEMIDE 40 MG TAB PO SCH (08:21)
[2018-11-20] MEDS: ISOSORBIDE MONO EXTENDED REL 60 MG TABCR PO SCH (08:21)
[2018-11-20] MEDS: ASPIRIN 81 MG ECTAB PO SCH (08:21)
[2018-11-20] MEDS: POLYETHYLENE (MIRALAX) 17 GM PACK PO SCH (08:21)
[2018-11-20] MEDS: LACTULOSE SYRUP 10 GM/15 ML BTL 473 ML PO SCH ×3 (08:22→21:04)
[2018-11-20] MEDS: EPLERENONE PO SCH (08:22)
[2018-11-20] MEDS: INSULIN ASPART 100 UNITS/ML 3 ML PEN SC SCH ×4 (08:25→21:43)
[2018-11-20] MEDS ORDERED: POTASSIUM CHLORIDE 20 MEQ TABCR PO STA (09:24)
[2018-11-20] MEDS: ONDANSETRON INJ 2 MG/ML 2 ML VIAL IV PRN (09:42)
[2018-11-20] MEDS: FOLIC ACID 1 MG TAB PO SCH (11:57)
[2018-11-20] MEDS: OMEGA-3 (PURIFIED FISH OIL) 1 GM CAP PO SCH ×2 (11:57→21:07)
[2018-11-20] MEDS: MULTIVITAMIN TAB PO SCH (11:57)
[2018-11-20] MEDS: MAGNESIUM OXIDE 400 MG TAB PO SCH (11:57)
[2018-11-20] MEDS: BACLOFEN 20 MG TAB PO PRN (15:59)
--- NOTE | 2018-11-20 19:36 | Hospitalist Progress Note ---
Date of Service November 20, 2018 Assessment & Plan (1) Fracture of lumbar spine: The patient denies recent falling or trauma but there is evidence of transverse process fracture on the right side at L1 and L2. Possible loosening of left S1 pedicle screw. Per ortho consult: nonsurgical candidate, continue brace, may ambulate Patient was refitted for TLSO brace today which initially could not be fitted due to obesity. 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 No evidence of overt GI blood loss. Platelets at 88,000 today Transfused 2 PRBC this admission Per hematology consult: - history of iron deficiency in the past and receiving intravenous supplementation - recommend moving forward if proven to be deficient at this time. He is on high-dose proton pump inhibitor and therefore would not recommend oral supplementation because of lack of absorption. - Hemoglobin electrophoresis, iron panel per hematology rec - leukopenia and thrombocytopenia are reflection of his ongoing liver disease - Myelodysplasia is not ruled out; however, in the setting of his comorbid issues would not immediately pursue a bone marrow until there is convincing evidence of further decline in his peripheral counts. Mr. Herring is refusing iron supplementation until he consults with his liver transplant center as he is concerned this would jeopardize his candidacy for a liver Repeat CBC am Hold aspirin for low platelets (3) Osteomyelitis of lumbar spine: Suggestion of osteomyelitis at the left S1 level in the region of the loose pedicle screw. BC no growth cefepime and vanc changed to doxy po bid suppressive therapy 11/19 per ID rec (4) Diabetes: The patient is insulin-dependent. ADA diet. Continue Basaglar. Sliding scale coverage as needed (5) Chronic systolic CHF (congestive heart failure): Continue lasix, lisinopril Chronic lower extremity edema per patient. 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 HR in the 60s, will resume propranolol at bid dosing as patient has esophageal varices and titrate up (7) Opioid dependence: He takes oxycodone at home. He will receive parenteral narcotics for pain control measure while hospitalized until he is able to be switched back to oral medication (8) Morbid obesity: BMI greater than 40 (9) Hypokalemia: replaced, repeat prp am (10) HTN (hypertension): furosemide, propranolol (11) Atrial flutter: resume propranolol as above Continue coumadin for now, may need to hold Coumadin if platelets fall further - currently 88,000 INR am Dispo: denied inpatient rehab, home with home health, hopefully can dc tomorrow depending on stabilization of blood counts and electrolytes Subjective Mr. Herring is feeling a bit better today. Continues to have edematous lower extremities which he reports is chronic. Pain is controlled. He is a bit nauseas today Review of Systems Review of Systems: All systems reviewed & are unremarkable except as noted in HPI & below Physical Exam Physical Exam: General: no distress Eyes: normal inspection, PERLL Respiratory: chest non tender, clear to auscultation, normal breath sounds, no respiratory distress, no accessory muscle use Cardiac: regular rate and rhythm, no rub or gallop, no murmur, +2 pitting edema lower extremities GI/: active bowel sounds, no abd pain or tenderness, soft, non distended Extremities: normal range of motion, normal strength, non tender Neuro/Psych: alert and oriented x 3, normal mood and affect Skin: normal color, dry Results & Data Vital Signs (Past 12 Hours) Vital Signs Temp Pulse Pulse Resp BP Pulse Ox 11/20/18 15:29 36.9 C 66 17 152/61 H 96 11/20/18 07:49 37.0 C 68 18 163/83 H 98
[2018-11-20] MEDS ORDERED: FUROSEMIDE 40 MG TAB PO SCH (21:00)
[2018-11-20] MEDS: DUTASTERIDE PO SCH (21:04)
[2018-11-20] MEDS: EZETIMIBE 10 MG TABLET PO SCH (21:04)
[2018-11-20] MEDS: LISINOPRIL 10 MG TAB PO SCH (21:05)
[2018-11-20] MEDS: PROPRANOLOL HCL 10 MG TAB PO SCH (21:06)
[2018-11-20] MEDS: TAMSULOSIN HCL 0.4 MG CAP PO SCH (21:06)
[2018-11-20] MEDS: WARFARIN SOD 7.5 MG TAB PO SCH (21:07)
[2018-11-20] MEDS: INSULIN GLARGINE SOLOSTAR 100 UNITS/ML 3 ML PEN SQ SCH (21:42)
[2018-11-21] MEDS: BACLOFEN 20 MG TAB PO PRN (01:22)
[2018-11-21] MEDS: MoRPHine SULFATE 2 MG/ML CARP IV PRN (05:15)
[2018-11-21 07:05] LABS: Mean Corpuscular Hgb Conc 30.1 g/dL (32-36)
[2018-11-21 07:20] LABS: Hematocrit (blood only) 27.6 % (42-52); Hemoglobin 8.3 g/dL (14.0-18.0); Mean Corpuscular Volume 61.5 fL (80-100); RDW Coefficient of Variation 26.5 % (11.5-14.5); RDW Standard Deviation 58.4 fL (36.4-46.3); Red Blood Count 4.49 M/uL (4.7-6.1); White Blood Count 3.69 K/uL (4.8-10.8)
[2018-11-21 07:36] LABS: BUN Creatinine Ratio 7.7 (10-20); Calcium 8.4 mg/dl (8.5-10.1); Creatinine Clr Calc Pharmacy 154.2 ml/min; Est GFR (African American) 116.8; Est GFR (Non-African American) 100.7; Potassium 3.4 mmol/L (3.5-5.1)
[2018-11-21 07:39] LABS: Platelet Count 88 K/uL (130-400); Platelet Estimate Decreased (Normal)
[2018-11-21] MEDS: DULOXETINE HCL 60 MG CAP PO SCH (08:15)
[2018-11-21] MEDS: PROPRANOLOL HCL 10 MG TAB PO SCH (08:15)
[2018-11-21] MEDS: dilTIAZem ER 180 MG CAPCR PO SCH (08:15)
[2018-11-21] MEDS: BuPROPion SR 100 MG TABCR PO SCH (08:15)
[2018-11-21] MEDS: PANTOprazole 40 MG TAB PO SCH (08:16)
[2018-11-21] MEDS: ISOSORBIDE MONO EXTENDED REL 60 MG TABCR PO SCH (08:16)
[2018-11-21] MEDS: DOXYCYCLINE HYCLATE 100 MG CAP PO SCH (08:16)
[2018-11-21] MEDS: POTASSIUM CHLORIDE 20 MEQ TABCR PO SCH (08:16)
[2018-11-21] MEDS: DICLOFENAC SOD 1% GEL 100 GM TUBE EXT SCH ×2 (08:17→12:44)
[2018-11-21] MEDS: EPLERENONE PO SCH (08:17)
[2018-11-21] MEDS: LACTULOSE SYRUP 10 GM/15 ML BTL 473 ML PO SCH ×2 (08:17→13:26)
[2018-11-21] MEDS: POLYETHYLENE (MIRALAX) 17 GM PACK PO SCH (08:17)
[2018-11-21] MEDS: INSULIN ASPART 100 UNITS/ML 3 ML PEN SC SCH ×2 (08:44→12:43)
[2018-11-21] MEDS ORDERED: FUROSEMIDE 40 MG TAB PO SCH (09:00)
[2018-11-21] MEDS ORDERED: IRON SUCROSE 200 MG in 0.9 % SODIUM CHLORIDE 100 ML IV ONE (10:45)
[2018-11-21] MEDS ORDERED: POTASSIUM CHLORIDE 20 MEQ TABCR PO STA (11:19)
[2018-11-21] MEDS: MAGNESIUM OXIDE 400 MG TAB PO SCH (11:49)
[2018-11-21] MEDS: FOLIC ACID 1 MG TAB PO SCH (11:49)
[2018-11-21] MEDS: OMEGA-3 (PURIFIED FISH OIL) 1 GM CAP PO SCH (11:50)
[2018-11-21] MEDS: MULTIVITAMIN TAB PO SCH (11:50)
--- NOTE | 2018-11-21 13:16 | Discharge Summary ---
Date of Service November 21, 2018 Admission HPI Per Admitting Provider 68-year-old black male with multiple medical problems. He has had lumbar spine surgery on 3 occasions with instrumentation. He has developed severe lumbar area pain over the past several days with the inability to ambulate. He denies any recent falls or trauma. However the CT scan reveals evidence of a right L1- L2 transverse process fracture and a posterior right 12th rib fracture. There is some evidence of left S1 screw loosening with possible associated osteomyelitis. He is pancytopenic which appears to be chronic. He states he has thalassemia trait but does not see a grade recorder in this area. He has seen Dr. Bermudez in orthopedics recently who will be consulted. Hematology consult and infectious disease consult will be requested. He has been started on vancomycin and cefepime for now. No overt GI bleeding. Fecal occult blood is pending. He is on chronic Coumadin therapy for paroxysmal atrial fibrillation. He currently is in normal sinus rhythm. INR 2.8. He alternates Coumadin 10 mg and 7.5 mg. He will be kept on 7.5 mg daily with INR monitor daily. He also is opioid dependent taking oxycodone for chronic pain control. Parenteral narcotics will be administered while hospitalized for pain control. He has requested full CODE STATUS Allergies Principal Diagnosis Lumbar spine fracture Discharge Exam Constitutional WD/WN, vitals as above Respiratory normal respiratory effort, lungs clear to auscultation Cardiovascular Rate/Rhythm: regular rate and regular rhythm Extremities: + edema (3+ lower extremities ) Gastrointestinal (Abdomen) Inspection/Auscultation: abdomen normal to inspection and normal bowel sounds; abdomen not distended Percussion/Palpation: abdomen nontender Musculoskeletal no cyanosis or clubbing, extremities motor strength 5/5 Skin no rashes, warm and dry Neurologic moves all extremities and awake Psychiatric A+Ox3, euthymic affect Discharge Data Allergies Allergy/AdvReac Type Severity Reaction Status Date / Time simvastatin AdvReac Intermediate GI UPSET- Verified 11/13/18 08:58 OK WITH LIPITOR spironolactone AdvReac Mild NIPPLES Verified 11/13/18 08:58 HURT pioglitazone AdvReac Unknown GI UPSETS Verified 11/13/18 08:58 Consultations 11/13/18 10:07 ED Decision to Admit Stat 11/13/18 13:15 Consult Hematology Routine Consult Infectious Diseases Routine 11/13/18 15:56 Consult Orthopedic Surgery Routine Ordered Studies 11/13/18 08:53 CT lumbar spine wo con Stat CT pelvis wo con Stat 11/14/18 08:29 MR lumbar spine wo con Urgent Hospital Course (1) Fracture of lumbar spine: The patient denies recent falling or trauma but there is evidence of transverse process fracture on the right side at L1 and L2. Possible loosening of left S1 pedicle screw. Per ortho consult: nonsurgical candidate, continue brace, may ambulate Patient was refitted for TLSO brace today which initially could not be fitted due to obesity. 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 No evidence of overt GI blood loss. Platelets at 88,000 today Transfused 2 PRBC this admission Per hematology consult: - history of iron deficiency in the past and receiving intravenous supplementation - will give Venofer 200 mg x 1 dose now before discharge, could consider continuing on an outpatient basis. He may not adequately absorb iron due to his high dose proton pump inhibitor intake - Hemoglobin electrophoresis, iron panel with low iron, patient's anemia is quite microcytic - leukopenia and thrombocytopenia are reflection of his ongoing liver disease - Myelodysplasia is not ruled out; however, in the setting of his comorbid issues would not immediately pursue a bone marrow until there is convincing evidence of further decline in his peripheral counts. Discussed today's blood counts with Dr. Jaramillo - recommends follow up in 2-3 weeks. Will have CBC repeated in two days when patient is scheduled for his next INR Hold aspirin for low platelets (3) Osteomyelitis of lumbar spine: Suggestion of osteomyelitis at the left S1 level in the region of the loose pedicle screw. BC no growth cefepime and vanc changed to doxy po bid suppressive therapy 11/19 per ID rec Patient will follow with ID outpatient (4) Diabetes: The patient is insulin-dependent. ADA diet. Continue Basaglar. Sliding scale coverage as needed Mild hypoglycemia this morning, will discharge with normal home regimen as he will be returning to his normal diet (5) Chronic systolic CHF (congestive heart failure): Continue lasix, lisinopril Chronic lower extremity edema per patient. Per outpatient notes, patient is chronically edematous 3+, he should continue to follow with his outpatient provider about this. 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 HR in the 60s, increase propranolol to 10 mg TID dosing which is half of the dosing he was admitted with for patient's has esophageal varices (7) Opioid dependence: He takes oxycodone at home. (8) Morbid obesity: BMI greater than 40 (9) Hypokalemia: replaced (10) HTN (hypertension): furosemide, propranolol (11) Atrial flutter: resume propranolol as above Continue coumadin 7.5 mg, INR is already scheduled for Dispo: denied inpatient rehab, home with home health, hopefully can dc tomorrow depending on stabilization of blood counts and electrolytes Total Time Total Time Spent Total Time Spent (In Minutes): greater than 30 minutes Discharge Plan Discharge Items Patient Disposition: Home - Self-Care Reason For Visit: SEVERE BACK PAIN Discharge Diagnosis: Lumbar spine fracture Discharge Goals: Decrease discomfort and Improve function Activity: Resume your previous activity Activity Comment: gradually as tolerated, use back brace when out of bed Lifting: None Non-emergency contact: Primary Care Provider Call non-emergency contact if: you have any medication questions, your symptoms worsen, your pain is not controlled and your pain is worsening Follow-up/Referrals: Carlee Garland DO [Physician] - 12/05/18 11:15 am Wayne Florez DO [Primary Care Provider] - 11/23/18 2:20 pm Diet: Carb Consistent or DM2 Other Ambulatory Orders: Complete Blood Count no Diff (Routine) Timeframe: [id number] Location: Determined by Patient Ordered By: Julia Tollivertl Provider Instructions: Please make sure to follow up with orthopedics, infectious disease, hematology and your primary care provider. You will receive a call from our nurse navigator with these appointments, but please call the offices if you do not here from her in the next couple of days. Continue to practice safe movements as instructed by physical and occupational therapy. You will take home a prescription for PT/OT to evaluate and treat you. Please hold your aspirin until you see your primary care provider and discuss with them as your platelets have been low. You have an INR scheduled for 11/23. Please have your blood count drawn at that time as well. Your blood sugar was a little low today. Please make sure you are checking your sugars before meals and bedtime at home and that you let your provider know if you are experiencing low sugars. I have attached information on hypoglycemia. Prescriptions: New warfarin [Coumadin] 7.5 mg Tablet 7.5 mg PO QPM Qty: 7 RF: 0 propranolol 10 mg Tablet 10 mg PO TID Qty: 60 RF: 0 Continued diltiazem HCl 180 mg Capsule,Extended Release 24 Hr 180 mg PO QAM RF: 0 aspirin [Aspirin Low Dose] 81 mg Tablet,Delayed Release (Dr/Ec) 81 mg PO QAM RF: 0 amoxicillin 500 mg Tablet 4 tab PO DIRECTED PRN (Reason: PRE DENTAL) RF: 0 baclofen 20 mg Tablet 20 mg PO TID PRN (Reason: Pain) RF: 0 doxycycline monohydrate 100 mg Capsule 100 mg PO BID RF: 0 folic acid 1 mg Tablet 1 mg PO QDL RF: 0 eplerenone 25 mg Tablet 25 mg PO QAM RF: 0 ezetimibe 10 mg Tablet 10 mg PO QPM RF: 0 duloxetine 60 mg Capsule,Delayed Release(Dr/Ec) 60 mg PO QAM RF: 0 multivitamin Tablet 1 tab PO QDL RF: 0 furosemide 40 mg Tablet 40 mg PO QAM RF: 0 isosorbide mononitrate 120 mg Tablet Extended Release 24 Hr 120 mg PO QAM RF: 0 potassium chloride 20 mEq Tablet,Er Particles/Crystals 20 meq PO BID RF: 0 tamsulosin 0.4 mg Capsule 0.4 mg PO HS RF: 0 pantoprazole 40 mg Tablet,Delayed Release (Dr/Ec) 80 mg PO QAM RF: 0 lisinopril 10 mg Tablet 10 mg PO QPM RF: 0 nitroglycerin 0.6 mg Tablet, Sublingual 1 tab Sublingual DIRECTED PRN (Reason: Chest Pain) RF: 0 ondansetron 4 mg Tablet,Disintegrating 4 mg PO Q6 PRN (Reason: Nausea) RF: 0 lactulose 10 gram/15 mL Solution 15 ml PO TID RF: 0 omega-3 acid ethyl esters 1 gram Capsule 1 cap PO BID RF: 0 Xifaxan 550 mg Tablet 550 mg PO BID PRN (Reason: stomach issues) RF: 0 magnesium oxide 400 mg Capsule 1 cap PO QDL RF: 0 bupropion HCl [Wellbutrin SR] 100 mg tablet sustained-release 12 hr 100 mg PO BID RF: 0 dutasteride [Avodart] 0.5 mg capsule 0.5 mg PO DAILY RF: 0 Basaglar KwikPen U-100 Insulin 100 unit/mL (3 mL) insulin pen 10 unit subcut QPM RF: 0 lorazepam 0.5 mg tablet 0.5 mg PO DAILY PRN (Reason: Anxiety) RF: 0 Lantus Solostar U-100 Insulin 100 unit/mL (3 mL) insulin pen 10 unit subcut HS RF: 0 diclofenac sodium 1 % gel 1 g topical QID RF: 0 oxycodone 10 mg tablet 10 mg PO DAILY PRN (Reason: Pain) RF: 0 Discontinued propranolol 20 mg Tablet 20 mg PO TIDM RF: 0 warfarin 5 mg tablet 5 mg PO BID RF: 0 Stand-Alone Forms: [facility]/Other Patient Handouts: Hypoglycemia Discharge Orders: Discharge Order (Routine); Ordered 11/21/18 Ordered By: Julia Burleson Admission Data Admit Date/Time: 11/13/18 10:58 Attending Provider: Siddhartha Jenkins Admit Provider: Timothy Wei Primary Care Provider: Wayne Florez Other Providers: Timothy Wei ; Gerald Jaramillo V ; Carlee Garland ; Bertram Bermudez ; Rashawn Wood Service: Medical
[2018-11-27 17:23] LABS: HCT 26.2 % (38.5-50.0); HGB 7.1 g/dL (13.2-17.1); RBC 4.14 Mill/uL (4.20-5.80); RDW 25.3 % (11.0-15.0)
== END 2018-11-21 16:44 | disposition home or self-care (01) | DRG 560 ==
LOC: ED 08:34 → SUATTDRO 10:58 → 3W 10:58

== ENCOUNTER 2020-11-13 00:58 | Inpatient (IN) ==
[2020-11-13] MEDS ORDERED: fentaNYL citrate 100 MCG/2 ML VIAL ONE (01:09)
[2020-11-13] MEDS ORDERED: fentaNYL citrate 100 MCG/2 ML VIAL IV STA (01:24)
[2020-11-13] MEDS ORDERED: AMIODARONE / D5W 150 MG/100 ML BAG IV STA ×2 (01:26→03:54)
[2020-11-13] MEDS ORDERED: 0.2 MICRON FILTER SET 1 EA IV ONE ×3 (01:26→03:54)
[2020-11-13 01:38] LABS: Mean Corpuscular Hgb Conc 31.9 g/dL (32-36)
[2020-11-13 01:47] LABS: Hemoglobin 11.8 g/dL (14.0-18.0); Mean Corpuscular Hemoglobin 21.9 pg (25-34); Mean Corpuscular Volume 68.5 fL (80-100); RDW Standard Deviation 54.2 fL (36.4-46.3); White Blood Count 4.51 K/uL (4.8-10.8)
[2020-11-13 01:49] LABS: Partial Thromboplastin Ratio 1.2; Partial Thromboplastin Time 30.5 Seconds (21.0-31.0)
[2020-11-13 01:55] LABS: Albumin Level 2.6 gm/dl (3.4-5.0); Calcium 8.2 mg/dl (8.5-10.1); Creatinine Clr Calc Pharmacy 97.2 ml/min; Est GFR (African American) 85.1 ml/min; Est GFR (Non-African American) 73.4 ml/min; Magnesium 1.7 mg/dl (1.8-2.4); Potassium 3.6 mmol/L (3.5-5.1)
--- NOTE | 2020-11-13 01:59 | Emergency Department Note ---
Impression & Plan Wide-complex tachycardia, Non-ST elevation (NSTEMI) myocardial infarction ED Provider Note NAME: RAMY CHARLES AGE: 70 SEX: M ARRIVES VIA: Ambulance INFORMANT: Patient, his ED PROVIDER(S): Janna Archibald DO CHIEF COMPLAINT: Chest pain PLAN: Disposition: Admitted to ICU Condition: Guarded MEDICAL DECISION MAKING: This is a 70-year-old male patient with an extensive past medical history who presents to the emergency department with diaphoresis and lightheadedness. The patient then developed some chest discomfort for which they called EMS. Upon arrival to the emergency department, the patient had an episode of wide-complex tachycardia. This was self-limited. This occurred 2-3 more times here in the emergency department and had associated hypotension, lightheadedness and diaphoresis. Episodes did seem to be related to positioning. The episodes would occur when the patient would sit more upright. The patient was bolused with amiodarone and started on an amiodarone drip. He was also treated with IV Lopressor. The case was discussed with Dr. Cho from cardiology and Dr. Benz from the [facility] hospitalist group. The patient will be admitted to the ICU. Triage Nursing notes reviewed and agree with them. Additional history obtained from the patient's is at the bedside Prior medical records reviewed Vital Signs: reviewed and remarkable for hypotension and tachycardia Differential diagnosis: Cardiac dysrhythmia, cardiac ischemia, electrolyte abnormality, STEMI ER treatment provided: IV normal saline, IV amiodarone bolus, IV normal saline solution, IV fentanyl, IV Lopressor, IV amiodarone drip Diagnostics interpreted by me: ECG: Wide-complex tachycardia at 190 with a right bundle branch block this is significantly different from previous EKGs that this patient had earlier this y ear. Repeat EKG: Sinus tachycardia at 101 with a right bundle branch block QTC is 601 ms. Cardiac Monitoring: Normal sinus rhythm at a rate of 97 Laboratory studies: See below Imaging studies: As per my interpretation Chest x-ray: Significant cardiomegaly; sternotomy wires in place; no obvious pulmonary pathology Consultation: 0230: Dr. Cho from cardiology HPI: 70/M arrives for evaluation of chest discomfort, lightheadedness and diaphoresis. Patient explains that he developed some dizziness and diaphoresis earlier in the day. As the patient was preparing for bed tonight, he developed some chest discomfort and his diaphoresis and lightheadedness had worsened. He woke his from sleep and they called EMS. ROS: See above HPI for pertinent positives & negatives. A total of 10 systems reviewed and were otherwise negative. PAST MEDICAL HISTORY:See Below PAST SURGICAL HISTORY:See Below FAMILY HISTORY:See Below SOCIAL HISTORY:See Below HOME MEDICATIONS:See list ALLERGIES:See list VITALS:See Below PHYSICAL EXAMINATION: HEENT: Head - normocephalic and atraumatic Pupils are equal, round, and reactive to light. Extraocular eye muscles are intact, and sclera are anicteric. Nose - moist nasal mucosa without discharge. Mouth - moist buccal mucosa. Oropharynx is nonerythematous and there is no tonsillar exudate or edema noted. Neck: Supple; no JVD Heart: Tachycardic rate and regular rhythm. There is a normal S1 and S2 with no murmurs, clicks, or gallops appreciated. Lungs: Clear to auscultation bilaterally with no wheezes, rales, or rhonchi. Abdomen: Soft, completely nontender, nondistended, with good bowel sounds. There are no palpable pulsatile masses or hepatosplenomegaly. There is no guarding, rigidity, or rebound noted. Extremities: No evidence of cyanosis, clubbing, or edema. There are easily palpable peripheral pulses. Skin: warm and diaphoretic with good turgor and no rashes. ED COURSE: Times/Reassessments:100 the patient was evaluated initially in room A 12. However the patient was noted to be in a wide-complex tachycardia and was hypotensive. He was quickly moved into room B1 and placed on the code cart monitor. Defibrillator pads were placed. As they prepared the patient for sync hronized cardioversion, the patient spontaneously converted into a sinus tachycardia and then into a normal sinus rhythm. A 2nd IV lock was placed and the patient was bolused with 500 cc of saline and 150 mg of IV amiodarone. Laboratory studies were drawn and a repeat twelve-lead EKG was obtained. Patient complained of severe low back pain which is a chronic problem for him. He was given 100 mcg of IV fentanyl. The patient was ordered to have a portable chest x-ray performed. The staff att empted to sit the patient up to perform that portable film and the patient had recurrent wide-complex tachycardia with the upright positioning. He was quickly laid flat again. With each episode of wide-complex tachycardia, the patient had accompanying hypotension and dizziness. I kept the patient and his abreast of the situation including the results of laboratory tests and x-rays. I disc ussed the case with Dr. Benz and Delvin Reyes PA-C from the ICU. I consulted with Dr. Cho from cardiology and he recommended an IV dose of Lopressor and starting the patient on a amiodarone drip. The patient was given 5 mg of IV Lopressor and started on amiodarone drip at 1 mg/min. I have personally spent greater than 75 minutes of critical care time in the direct management of this patient. This includes bedside care, interpretation of diagnostic studies, and testing, discussion with consultants, patient, and family members, and other required patient management activities. This 75 minutes is in excess of all separately billable procedures. 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 [facility] History of coronary artery bypass graft x 3 X2 - 1993 AND 2010 - [place] History of esophagogastroduodenoscopy (EGD) (~05/29/19) History of heart surgery atrial septal deficit repair @ [facility] [place] 1993 at same time as CABG History of right knee surgery X4 to repair broken patella Hx of colonoscopy Hx of vasectomy Family History (Updated 08/12/20 @ 18:01 by Siddhartha Ordonez) Mother Stroke Father Stroke Aunt Cancer Liver cancer and stomach cancer Other No family history of adverse response to anesthesia No significant family history Denies family history of Colon cancer Ovarian cancer Prostate cancer Myocardial infarction Breast cancer Social History Smoking Status: Former smoker Age Quit Using Tobacco: 60; Second Hand Exposure: No; Hx Alcohol Use: No Hx Substance Use: Yes Last Used Substance: Days (ago) Last Used Substance Other:: presciption for medicinal marijuana Substance Use Type Other:: medical marijuana Preferred Language: Gambian Communication Ability: Effective Visual Impairment: No Limitations Hearing Ability: Normal Filter Worker Required: No Beliefs That Will Affect Care: None marital status: Current Living Situation: Spouse current occupational status: retired Other Information That Helps Us Care for You: No Feels Safe at Home: Yes Safety Concerns: Feels Safe At This Time Childhood Exposure to Second-Hand Smoke: Yes Dental Care, Regularly: Yes Physical Activity Frequency: 3-4 Times per Week Seatbelt Use: always Assistive Devices: Cane and Walker Allergies Allergies Allergy/AdvReac Type Severity Reaction Status Date / Time simvastatin AdvReac Intermediate GI UPSET- Verified 11/13/20 01:33 OK WITH LIPITOR pioglitazone AdvReac Mild GI UPSETS Verified 11/13/20 01:33 spironolactone AdvReac Mild NIPPLES Verified 11/13/20 01:33 HURT Home Meds Home Medications Medication Instructions Recorded Confirmed multivitamin 1 tab PO QAM 01/23/19 11/13/20 folic acid 1 mg PO QDD 05/22/20 11/13/20 magnesium oxide 400 mg PO QPM 05/22/20 11/13/20 dutasteride [Avodart] 0.5 mg PO HS 08/12/20 11/13/20 warfarin 7.5 mg PO HS 08/12/20 11/13/20 Previous Rx's Medication Instructions Recorded baclofen 20 mg tablet 20 mg PO TID PRN #90 tab 12/04/18 miscellaneous medical supply #1 ea 04/26/19 miscellaneous medical supply #1 ea 10/25/19 lactulose 10 gram/15 mL oral 15 ml PO TID PRN #1892 ml 10/31/19 solution CPAP Machine #1 ea 02/08/20 propranolol 10 mg tablet 10 mg PO TID #270 tab 03/07/20 rifaximin 550 mg tablet 550 mg PO TID #270 tab 03/07/20 bupropion HCl 100 mg tablet,12 hr 100 mg PO QAM #90 ea 04/22/20 sustained-release diclofenac sodium 1 % topical gel 4 g TOP QID #100 gm 05/15/20 duloxetine 60 mg capsule,delayed 60 mg PO QAM #90 cap 05/15/20 release pantoprazole 40 mg tablet,delayed 40 mg PO BID #180 tab 05/15/20 release furosemide 40 mg tablet 40 mg PO QAM #90 tab 05/27/20 insulin glargine 100 unit/mL (3 12 unit SUBCUT HS 90 Days #45 ml 05/27/20 mL) subcutaneous pen tamsulosin 0.4 mg capsule 0.4 mg PO HS 90 Days #90 cap 05/29/20 diltiazem HCl 180 mg capsule,24 180 mg PO QAM #90 cap 08/08/20 hr,extended release doxycycline monohydrate 100 mg 100 mg PO BIDM #180 cap 08/08/20 capsule nitroglycerin 0.6 mg sublingual 0.6 mg SUBLINGUAL DIRECTED PRN 08/20/20 tablet #20 tab warfarin 5 mg tablet 5 mg PO .COMPLEX #90 tab 08/25/20 gabapentin 300 mg capsule 300 mg PO TID #270 cap 09/24/20 ezetimibe 10 mg tablet 10 mg PO QPM 90 Days #90 tab 10/16/20 lisinopril 20 mg tablet 20 mg PO DAILY #90 tab 10/16/20 omega-3 acid ethyl esters 1 gram 1 cap PO BID #180 cap 10/16/20 capsule potassium chloride 20 mEq 20 meq PO BID #180 tab 10/16/20 tablet,extended release eplerenone 25 mg tablet 25 mg PO QAM 90 Days #90 tab 10/29/20 isosorbide mononitrate 120 mg 120 mg PO QPM #90 tab 10/29/20 tablet,extended release 24 hr blood glucose control, normal #1 ea 11/11/20 blood sugar diagnostic #100 ea 11/11/20 lancets 33 gauge #400 ea 11/11/20 Results & Data (ED) Vital Signs Vital Signs - 24 hr 11/13/20 00:58 11/13/20 01:04 11/13/20 01:05 Temperature 36.7 C Temperature Source Oral Pulse Rate 188 H 187 H Pulse Rate [Right] Pulse Rate from SpO2 Sensor Pulse Rhythm [Right] Pulse Strength [Right] Respiratory Rate 20 27 H Respiratory Effort / Characteristics Respiratory Depth Blood Pressure 76/58 L 76/58 L Blood Pressure [Right Arm] Blood Pressure Mean 64 64 Blood Pressure Mean [Right Arm] Blood Pressure Position [Right Arm] Pulse Oximetry 96 Oxygen Delivery Method Room Air Oxygen Flow Rate Sepsis Recent Fever Within 48 Hours No Sepsis New/Unexplained Change in Mental Status No Sepsis Action Taken by Nursing Physician Notified 11/13/20 01:10 11/13/20 01:14 11/13/20 01:34 Temperature Temperature Source Pulse Rate 175 H 101 H Pulse Rate [Right] 102 H Pulse Rate from SpO2 Sensor 176 H 102 H Pulse Rhythm [Right] Regular Pulse Strength [Right] Normal Respiratory Rate 31 H 8 L 18 Respiratory Effort / Characteristics Non-Labored Spontaneous Respiratory Depth Normal Blood Pressure 139/94 Blood Pressure [Right Arm] 135/92 Blood Pressure Mean 109 Blood Pressure Mean [Right Arm] 106 Blood Pressure Position [Right Arm] Pulse Oximetry 98 99 98 Oxygen Delivery Method Nasal Cannula Oxygen Flow Rate 2 Sepsis Recent Fever Within 48 Hours Sepsis New/Unexplained Change in Mental Status Sepsis Action Taken by Nursing 11/13/20 01:47 11/13/20 01:51 11/13/20 02:44 Temperature Temperature Source Pulse Rate 102 H Pulse Rate [Right] 97 H 97 H Pulse Rate from SpO2 Sensor Pulse Rhythm [Right] Regular Regular Pulse Strength [Right] Normal Normal Respiratory Rate 18 18 Respiratory Effort / Characteristics Non-Labored Spontaneous Non-Labored Spontaneous Respiratory Depth Normal Normal Blood Pressure 155/108 H Blood Pressure [Right Arm] 181/108 H 148/94 H Blood Pressure Mean Blood Pressure Mean [Right Arm] 132 112 Blood Pressure Position [Right Arm] Lying Lying Pulse Oximetry 97 100 Oxygen Delivery Method Nasal Cannula Nasal Cannula Oxygen Flow Rate 2 2 Sepsis Recent Fever Within 48 Hours Sepsis New/Unexplained Change in Mental Status Sepsis Action Taken by Nursing 11/13/20 03:14 Temperature Temperature Source Pulse Rate Pulse Rate [Right] 99 H Pulse Rate from SpO2 Sensor Pulse Rhythm [Right] Regular Pulse Strength [Right] Normal Respiratory Rate 18 Respiratory Effort / Characteristics Non-Labored Spontaneous Respiratory Depth Normal Blood Pressure Blood Pressure [Right Arm] 135/95 Blood Pressure Mean Blood Pressure Mean [Right Arm] 108 Blood Pressure Position [Right Arm] Lying Pulse Oximetry 100 Oxygen Delivery Method Nasal Cannula Oxygen Flow Rate 2 Sepsis Recent Fever Within 48 Hours Sepsis New/Unexplained Change in Mental Status Sepsis Action Taken by Nursing Laboratory Data Result diagrams: 11/13/20 01:11/13/20 01:31 Lab Results 11/13/20 11/13/20 11/13/20 Range/Units 01:31 01:31 01:31 WBC 4.51 L (4.8-10.8) K/uL RBC 5.40 (4.7-6.1) M/uL Hgb 11.8 L (14.0-18.0) g/dL Hct 37.0 L (42-52) % MCV 68.5 L (80-100) fL MCH 21.9 L (25-34) pg MCHC 31.9 L (32-36) g/dL RDW Std Deviation 54.2 H (36.4-46.3) fL RDW Coeff of Jt 22.0 H (11.5-14.5) % Plt Count 132 (130-400) K/uL Immature Gran % (Auto) 0.0 % Neut % (Auto) 52.3 % Lymph % (Auto) 37.3 % [place] % (Auto) 7.8 % Eos % (Auto) 2.4 % Baso % (Auto) 0.2 % Neut # (Auto) 2.36 (1.4-6.5) K/uL Lymph # (Auto) 1.68 (1.2-3.4) K/uL [place] # (Auto) 0.35 (0.11-0.59) K/uL Eos # (Auto) 0.11 (0-0.5) K/uL Baso # (Auto) 0.01 (0-0.2) K/uL Immature Gran # (Auto) 0.00 (0.00-0.02) K/uL Platelet Estimate Decreased L (Normal) Giant Platelets 1+ Polychromasia 1+ Hypochromasia Present Microcytosis Present Target Cells 1+ APTT 30.5 (21.0-31.0) Seconds PTT Ratio 1.2 Sodium 145 (136-145) mmol/L Potassium 3.6 (3.5-5.1) mmol/L Chloride 112 H (98-107) mmol/L Carbon Dioxide 25 (21-32) mmol/L Anion Gap 8.0 (3-11) BUN 8 (7-18) mg/dl Creatinine 1.04 (0.6-1.4) mg/dl Est Cr Clr Drug Dosing 97.2 ml/min Est GFR ( Amer) 85.1 ml/min Est GFR (Non-Af Amer) 73.4 ml/min BUN/Creatinine Ratio 8.0 L (10-20) Glucose 100 H (70-99) mg/dl Calcium 8.2 L (8.5-10.1) mg/dl Magnesium 1.7 L (1.8-2.4) mg/dl Total Bilirubin 0.6 (0.2-1) mg/dl AST 88 H (15-37) U/L ALT 62 (12-78) U/L Alkaline Phosphatase 206 H (45-117) U/L Troponin I 0.060 H* (0-0.045) ng/ml Total Protein 7.2 (6.4-8.2) gm/dl Albumin 2.6 L (3.4-5.0) gm/dl Globulin 4.6 H (2.5-4.0) gm/dl Albumin/Globulin Ratio 0.6 L (0.9-2) Lipase 131 (73-393) U/L COVID-19 Eval Order SARS-CoV-2 (PCR) (Negative) 11/13/20 11/13/20 Range/Units 01:49 01:49 WBC (4.8-10.8) K/uL RBC (4.7-6.1) M/uL Hgb (14.0-18.0) g/dL Hct (42-52) % MCV (80-100) fL MCH (25-34) pg MCHC (32-36) g/dL RDW Std Deviation (36.4-46.3) fL RDW Coeff of Jt (11.5-14.5) % Plt Count (130-400) K/uL Immature Gran % (Auto) % Neut % (Auto) % Lymph % (Auto) % [place] % (Auto) % Eos % (Auto) % Baso % (Auto) % Neut # (Auto) (1.4-6.5) K/uL Lymph # (Auto) (1.2-3.4) K/uL [place] # (Auto) (0.11-0.59) K/uL Eos # (Auto) (0-0.5) K/uL Baso # (Auto) (0-0.2) K/uL Immature Gran # (Auto) (0.00-0.02) K/uL Platelet Estimate (Normal) Giant Platelets Polychromasia Hypochromasia Microcytosis Target Cells APTT (21.0-31.0) Seconds PTT Ratio Sodium (136-145) mmol/L Potassium (3.5-5.1) mmol/L Chloride (98-107) mmol/L Carbon Dioxide (21-32) mmol/L Anion Gap (3-11) BUN (7-18) mg/dl Creatinine (0.6-1.4) mg/dl Est Cr Clr Drug Dosing ml/min Est GFR ( Amer) ml/min Est GFR (Non-Af Amer) ml/min BUN/Creatinine Ratio (10-20) Glucose (70-99) mg/dl Calcium (8.5-10.1) mg/dl Magnesium (1.8-2.4) mg/dl Total Bilirubin (0.2-1) mg/dl AST (15-37) U/L ALT (12-78) U/L Alkaline Phosphatase (45-117) U/L Troponin I (0-0.045) ng/ml Total Protein (6.4-8.2) gm/dl Albumin (3.4-5.0) gm/dl Globulin (2.5-4.0) gm/dl Albumin/Globulin Ratio (0.9-2) Lipase (73-393) U/L COVID-19 Eval Order Covid19 at [facility] SARS-CoV-2 (PCR) NEGATIVE (Negative) Administered Medications Amiodarone HCl/Dextrose (Nexterone / D5w) 360 mg in 200 mls @ 33.333 mls/hr IV ONE ONE; Protocol Stop: 11/13/20 08:33 Last Admin: 11/13/20 02:43 Dose: 1 mg/min, 33.3 mls/hr Documented by: [id number] Cosigned by: [id number] Magnesium Sulfate/Dextrose (Magnesium Sulfate / D5w) 1 gm in 100 mls @ 50 mls/hr IV Q2H PHIL Stop: 11/13/20 12:14 Last Admin: 11/13/20 04:22 Dose: 50 mls/hr Documented by: [id number] Potassium Chloride (K Bob / Wtr) 10 meq in 100 mls @ 100 mls/hr IV Q1H PHIL Stop: 11/13/20 08:14 Last Admin: 11/13/20 04:22 Dose: 100 mls/hr Documented by: [id number] Discontinued Medications Fentanyl Citrate (Fentanyl Citrate 100 Mcg/2 Ml Vial) Confirm Administered Dose 100 mcg .ROUTE .STK-MED ONE Stop: 11/13/20 01:10 Last Admin: 11/13/20 01:32 Dose: Not Given Documented by: [id number] Fentanyl Citrate (Fentanyl Citrate 100 Mcg/2 Ml Vial) 100 mcg IV NOW STA Stop: 11/13/20 01:25 Last Admin: 11/13/20 01:32 Dose: 100 mcg Documented by: [id number] Amiodarone HCl/Dextrose (Nexterone / D5w) 150 mg in 100 mls @ 600 mls/hr IV NOW STA Stop: 11/13/20 01:35 Last Infusion: 11/13/20 01:46 Dose: 0 mls/hr Documented by: [id number] Cosigned by: [id number] Admin: 11/13/20 01:32 Dose: 600 mls/hr Documented by: [id number] Cosigned by: [id number] Metoprolol Tartrate (Metoprolol Tartrate 1 Mg/Ml Vial) 5 mg IV NOW STA Stop: 11/13/20 02:34 Last Admin: 11/13/20 02:44 Dose: 5 mg Documented by: [id number] Discharge Plan Visit Data Chief Complaint: Chest Pain Stated Complaint: CHEST PAIN ED Provider: Janna Archibald Discharge Problem: Wide-complex tachycardia, Non-ST elevation (NSTEMI) myocardial infarction Patient Disposition: Admitted As Inpatient Discharge Instructions Interventions: ED Discharge Assessment Last Done: 11/13/20 03:36
[2020-11-13 02:00] LABS: Platelet Count 132 K/uL (130-400)
[2020-11-13 02:01] LABS: Albumin Globulin Ratio 0.6 (0.9-2); Bilirubin,Total 0.6 mg/dl (0.2-1); Globulin 4.6 gm/dl (2.5-4.0); Total Protein 7.2 gm/dl (6.4-8.2); Troponin I 0.06 ng/ml (0-0.045)
[2020-11-13 02:02] LABS: Basophils # (auto) 0.01 K/uL (0-0.2); Basophils % (auto) 0.2 %; Eosinophils # (auto) 0.11 K/uL (0-0.5); Eosinophils % (auto) 2.4 %; Giant Platelets 1+; Hypochromasia Present; Lymphocytes # (auto) 1.68 K/uL (1.2-3.4); Lymphocytes % (auto) 37.3 %; Microcytosis Present; Monocytes # (auto) 0.35 K/uL (0.11-0.59); Monocytes % (auto) 7.8 %; Neutrophils # (auto) 2.36 K/uL (1.4-6.5); Neutrophils % (auto) 52.3 %; Platelet Estimate Decreased (Normal); Polychromasia 1+; Target Cells 1+
[2020-11-13] MEDS ORDERED: METOPROLOL TARTRATE 1 MG/ML VIAL IV STA (02:33)
[2020-11-13] MEDS ORDERED: AMIODARONE / D5W 360 MG/200 ML BAG IV ONE ×2 (02:34→03:54)
--- NOTE | 2020-11-13 03:20 | History & Physical Report ---
Date of Service November 13, 2020 Assessment & Plan (1) Wide-complex tachycardia: Patient is a medically complex 70 year old male with PMHx ALDO, CHF, Atrial Fibrillation, Cauda Equina syndrome, HTN, CAD s/p triple bypass x2, Cirrhosis, Depression, HTN, that presented by EMS for chief complaint of chest discomfort, diaphoresis, and lightheadedness. Upon arrival to the ED patient was found to have an episode of wide-complex tachycardia that was self limited with deep breathing. Wide-Complex Tachycardia -Initial EKG in ED when patient became symptomatic showing wide-complex tachycardia in addition to RBB at 190 bpm -Repeat EKG 10 minutes after initial showing sinus tach with RBB at 101 BPM -Upon being sat up patient would start to trend into a wide-complex rhythm again before self-limiting with deep breathing and returning to his back. -Amiodarone bolus and Lopressor 5mg IV given in the ED -Will continue with Amiodarone gtt and Lopressor 5mg IV q6h -Cardiology consulted -ICU notified and consulted, evaluated patient at the bedside -Hypokalemic and Hypomagnesemic at 3.6 and 1.7 respectively -Will give 40meq KCl and 4g Mag with goal K >4 and Mag >2 -Troponin elevated 0.060, expected, will trend -TTE ordered for AM NSTEMI -Elevated troponin likely due to wide-complex tachycardia -Trend troponins -ASA not given by EMS or in ED -Through note review has been deferred in the past given patient's cirrhosis -Will await clearance from cardiology at this time HTN -Continue Isosorbide mononitrate -Hold propranolol while pushing Lopressor IV -Hold home diltiazem Depression -Continue Buspar and Cymbalta if able to take PO CHF -Monitor I/O's -Esteves catheter placed -Continue Lasix 40mg PO, can convert to IV if patient unable to take PO due to laying on back Atrial Fibrillation -Hold Warfarin at this time -Cool Diltiazem Liver Cirrhosis -Continue Xifaxin -Hold propranolol Dispo: ICU for close monitoring FEN: NPO DVT: SCDs, hold pharmacologic at this time as patient may need IVCD placement or cardiac cath Code: Full. Discussed in full with patient and his Amy Manohar (H: [phone], C: [phone]) (2) Non-ST elevation (NSTEMI) myocardial infarction: History of Present Illness Chief Complaint: Chest pain Primary Care Provider: Wayne Florez DO Patient is a medically complex 70 year old male with PMHx ALDO, CHF, Atrial Fibrillation, Cauda Equina syndrome, HTN, CAD s/p triple bypass x2, Cirrhosis, Depression, HTN, that presented by EMS for chief complaint of chest discomfort, diaphoresis, and lightheadedness. Upon arrival to the ED patient was found to have an episode of wide-complex tachycardia that was self limited with deep breathing. This occurred 2-3 more times in the ED with associated hypotension, dizziness, and diaphoresis as the patient was sat upright. The patient was bolused with amiodarone and subsequently started on an amiodarone gtt. The ED provider discussed the case with the publication specialist project controls specialist and sales representative groceries Dr. Rizo who recommended adding on a beta mary as well as with the positional changes he felt the patient's tachycardia may be catecholamine induced. Upon discussion with the patient he noted that while his chest discomfort had resolved, he was now having some abdominal discomfort on his L side that ran from his upper L abdomen towards his L shoulder. He states that his dizziness has resolved and is currently not having any nausea. He notes that he was sitting and watching TV with his when his symptoms first appeared and that he was not in a stressful situation nor was he exerting himself. Patient does have a very extensive cardiac history with history of 4 cardiac caths without stenting in addition to having triple bypass surgery in 1993 and repeat in 2010. Patient notes he has never been told he has a ventricular arrhythmia. Med Hx: ALDO, CHF, Atrial Fibrillation, Cauda Equina syndrome, HTN, CAD s/p triple bypass x2, Cirrhosis, Depression, HTN Surg Hx: Cardiac cath x4, CABG x3 (x2), R knee meniscal repair x4, Back surgery x3 Allergies Allergy/AdvReac Type Severity Reaction Status Date / Time simvastatin AdvReac Intermediate GI UPSET- Verified 11/13/20 01:33 OK WITH LIPITOR pioglitazone AdvReac Mild GI UPSETS Verified 11/13/20 01:33 spironolactone AdvReac Mild NIPPLES Verified 11/13/20 01:33 HURT Home Medications Medication Instructions Recorded Confirmed Type baclofen 20 mg tablet 20 mg PO TID PRN #90 tab 12/04/18 11/13/20 Rx multivitamin 1 tab PO QAM 01/23/19 11/13/20 History miscellaneous medical supply #1 ea 04/26/19 09/29/20 Rx miscellaneous medical supply #1 ea 10/25/19 09/29/20 Rx lactulose 10 gram/15 mL oral 15 ml PO TID PRN #1892 ml 10/31/19 11/13/20 Rx solution CPAP Machine #1 ea 02/08/20 09/29/20 Rx propranolol 10 mg tablet 10 mg PO TID #270 tab 03/07/20 11/13/20 Rx rifaximin 550 mg tablet 550 mg PO TID #270 tab 03/07/20 11/13/20 Rx bupropion HCl 100 mg tablet,12 hr 100 mg PO QAM #90 ea 04/22/20 11/13/20 Rx sustained-release diclofenac sodium 1 % topical gel 4 g TOP QID #100 gm 05/15/20 11/13/20 Rx duloxetine 60 mg capsule,delayed 60 mg PO QAM #90 cap 05/15/20 11/13/20 Rx release pantoprazole 40 mg tablet,delayed 40 mg PO BID #180 tab 05/15/20 11/13/20 Rx release folic acid 1 mg PO QDD 05/22/20 11/13/20 History magnesium oxide 400 mg PO QPM 05/22/20 11/13/20 History furosemide 40 mg tablet 40 mg PO QAM #90 tab 05/27/20 11/13/20 Rx insulin glargine 100 unit/mL (3 12 unit SUBCUT HS 90 Days #45 ml 05/27/20 11/13/20 Rx mL) subcutaneous pen tamsulosin 0.4 mg capsule 0.4 mg PO HS 90 Days #90 cap 05/29/20 11/13/20 Rx diltiazem HCl 180 mg capsule,24 180 mg PO QAM #90 cap 08/08/20 11/13/20 Rx hr,extended release doxycycline monohydrate 100 mg 100 mg PO BIDM #180 cap 08/08/20 11/13/20 Rx capsule dutasteride [Avodart] 0.5 mg PO HS 08/12/20 11/13/20 History warfarin 7.5 mg PO HS 08/12/20 11/13/20 History nitroglycerin 0.6 mg sublingual 0.6 mg SUBLINGUAL DIRECTED PRN 08/20/20 11/13/20 Rx tablet #20 tab warfarin 5 mg tablet 5 mg PO .COMPLEX #90 tab 08/25/20 11/13/20 Rx gabapentin 300 mg capsule 300 mg PO TID #270 cap 09/24/20 11/13/20 Rx ezetimibe 10 mg tablet 10 mg PO QPM 90 Days #90 tab 10/16/20 11/13/20 Rx lisinopril 20 mg tablet 20 mg PO DAILY #90 tab 10/16/20 11/13/20 Rx omega-3 acid ethyl esters 1 gram 1 cap PO BID #180 cap 10/16/20 11/13/20 Rx capsule potassium chloride 20 mEq 20 meq PO BID #180 tab 10/16/20 11/13/20 Rx tablet,extended release eplerenone 25 mg tablet 25 mg PO QAM 90 Days #90 tab 10/29/20 11/13/20 Rx isosorbide mononitrate 120 mg 120 mg PO QPM #90 tab 10/29/20 11/13/20 Rx tablet,extended release 24 hr blood glucose control, normal #1 ea 11/11/20 Rx blood sugar diagnostic #100 ea 11/11/20 Rx lancets 33 gauge #400 ea 11/11/20 Rx Past Med/Surg History Medical History Anemia Anxiety and depression CAD (coronary artery disease) Cauda equina compression Chronic systolic CHF (congestive heart failure) Cirrhosis of liver not due to alcohol Cyst of kidney, acquired Depression Enlarged prostate Esophageal varices Essential tremor GERD (gastroesophageal reflux disease) Gout Hepatic hemangioma HTN (hypertension) Hx of myocardial infarction 1994 Hyperlipidemia Hypertension Internal hemorrhoids Liver failure NOT CANDIDATE FOR LIVER TRANSPLANT - 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 [facility] History of coronary artery bypass graft x 3 X2 - 1993 AND 2011 - [facility] History of esophagogastroduodenoscopy (EGD) (~05/29/19) History of heart surgery atrial septal deficit repair @ [facility] [place] 1993 at same time as CABG History of right knee surgery X4 to repair broken patella Hx of colonoscopy Hx of vasectomy Family History Mother Stroke Father Stroke Aunt Cancer Liver cancer and stomach cancer Other No family history of adverse response to anesthesia No significant family history Denies family history of Colon cancer Ovarian cancer Prostate cancer Myocardial infarction Breast cancer Social History Smoking Status: Former smoker Age Quit Using Tobacco: 60; Second Hand Exposure: No; Hx Alcohol Use: No Hx Substance Use: Yes Last Used Substance: Days (ago) Last Used Substance Other:: presciption for medicinal marijuana Substance Use Type Other:: medical marijuana Preferred Language: Ghanaian Communication Ability: Effective Visual Impairment: No Limitations Hearing Ability: Normal Taper And Floater Required: No Beliefs That Will Affect Care: None marital status: Current Living Situation: Spouse current occupational status: retired Other Information That Helps Us Care for You: No Feels Safe at Home: Yes Safety Concerns: Feels Safe At This Time Childhood Exposure to Second-Hand Smoke: Yes Dental Care, Regularly: Yes Physical Activity Frequency: 3-4 Times per Week Seatbelt Use: always Assistive Devices: Cane and Walker Review of Systems Review of Systems: All systems reviewed & are unremarkable except as noted in Subjective Physical Exam Constitutional: + ill appearing, + obese and cooperative Patient somewhat ashen appearing at this time Eyes: PERRL, conjunctivae normal, anicteric sclerae ENMT: external ear and nose normal, oropharynx normal Respiratory: normal respiratory effort, lungs clear to auscultation no cough Auscultation: no crackles, no rales, no rhonchi and no wheezes Clear to anterior and lateral lung mora, unable to assess posterior at this time Cardiovascular: Rate/Rhythm: regular rhythm and + tachycardic Heart Sounds: normal S1 and normal S2; no gallop, no murmur and no cardiac rub Extremities: + edema (+1 ) Gastrointestinal (Abdomen): normal bowel sounds, soft, nontender, no hepatosplenomegaly Percussion/Palpation: abdomen soft; abdomen nontender, no guarding and abdomen not rigid Musculoskeletal: Head/Neck/Chest: normocephalic and head atraumatic Skin: no rashes, warm and dry Neurologic: moves all extremities Psychiatric: Orientation: alert and oriented x 3 Eye Contact: + fair eye contact Affect: + anxious affect Results & Data Results & Data ([facility]) Vital Signs (Past 12 Hours) Vital Signs Temp Pulse Pulse Resp BP BP Pulse Ox 11/13/20 03:14 99 H 18 135/95 100 11/13/20 02:44 102 H 155/108 H 11/13/20 01:51 97 H 18 148/94 H 100 11/13/20 01:47 97 H 18 181/108 H 97 11/13/20 01:34 102 H 18 135/92 98 11/13/20 01:14 101 H 8 L 139/94 99 11/13/20 01:10 175 H 31 H 98 11/13/20 01:05 76/58 L 11/13/20 01:04 187 H 27 H 11/13/20 00:58 36.7 C 188 H 20 76/58 L 96 Code Status & VTE Plan VTE Prophylaxis Plan VTE Prophylaxis will be ordered: Yes Supervising Physician Co-Signing Physician Notes Patient seen and examined, chart reviewed, case discussed with Dr. Shaver and I agree with his assessment and plan. Patient is a 70yo AA male with history of CAD, HTN, CHF, Atrial fibrillation and liver cirrhosis presenting with chest discomfort, diaphoresis and lightheadedness. Patient with underlying RBBB, noted to have wide complex tachycardia in the ER, specifically with positional changes/sitting up. Patient is symptomatic with these episodes. Patient started on Amiodarone gtt in the ER On exam he is afebrile, tachycardic, resting comfortably, ill in appearance Skin - no rash HEENT -NC/AT, PERRL, MMM, Neck supple Heart - +S1/S2, regular, tachycardic Lungs - CTA Abd - +BS, soft, NT/ND Ext - No edema Labs and images reviewed Patient with wide complex tachyarrhythmia, positional in nature. Patient with history significant for CAD s/p CABG x 3V on two occasions, CHF, RBBB at baseline. -Concern for unstable arrhythmia, patient with complex cardiac history -Admit to MICU -continue Amiodarone gtt -Trend troponin -Check 2D echo -Electrolyte repletion -Cardiology consultation appreciated -Remainder of plan as above Resident Activity Tracking Resident Involvement: Resident Care Provided Care Provided: Adult Hospital Medicine
[2020-11-13] MEDS ORDERED: POTASSIUM CHLORIDE CRTAB 20 MEQ TABCR PO STA (03:22)
[2020-11-13] MEDS ORDERED: MAGNESIUM SULFATE / D5W 1 GM/100 ML BAG IV STA (03:24)
[2020-11-13] MEDS ORDERED: POTASSIUM CHLORIDE / WTR 10 MEQ/100 ML PLCT IV STA (03:33)
[2020-11-13] MEDS ORDERED: ICU PROTOCOL FOR HYPERGLYCEMIA PRN (03:54)
[2020-11-13] MEDS ORDERED: STAT IV Infusion **Titration per Protocol STA (03:54)
[2020-11-13] MEDS ORDERED: AMIODARONE IV BOLUS & DRIP IV STA (03:54)
[2020-11-13] MEDS ORDERED: NITROGLYCERIN SL 0.4 MG/TAB TAB SL PRN (03:54)
[2020-11-13] MEDS: MAGNESIUM SULFATE / D5W 1 GM/100 ML BAG IV SCH ×4 (04:22→07:30)
[2020-11-13] MEDS: POTASSIUM CHLORIDE / WTR 10 MEQ/100 ML PLCT IV SCH ×4 (04:22→07:29)
--- NOTE | 2020-11-13 04:41 | Critical Care Consultation ---
Date of Consultation November 13, 2020 Assessment & Plan (1) Admitted to intensive care unit: Reason Critically Ill: 70-year-old male with significant past medical history of coronary artery disease status post CABG x2 presenting with tachyarrhythmia with associated hypotension requiring close hemodynamic monitoring and ongoing evaluation for possible ischemic event versus electrical storm versus other. NEURO - * CAM ICU: NEGATIVE CARDIAC/VASCULAR - * Tachydysrhythmia/NSTEMI: * Initially with concerns of V. tach in the emergency department. Patient did convert with deep breathing. He received amiodarone bolus x1. * Given concerns for V. tach and possibility of ventricular storm, the emerg ency department did reach out to cardiology who agrees with continuing amiodarone and adding beta-mary. * Defibrillation pads in place. * Review of EKG and rhythm strips demonstrates a tachycardic rhythm in the 150s to 160s with concern for one-to-one a flutter versus SVT-like pattern. Patient appears to have isolated ST elevation in lead III. QTc prolongated at initially greater than 600, but now approximately 588. * Troponin elevated at 0.06. * Given patient's significant history of coronary artery disease and presenting symptoms including chest pain with week long history of fatigue, weakness, and dyspnea on exertion, I am concerned for the possibility of acute ischemic event resulting in subsequent tachyarrhythmia. * I did reach out to cardiology by phone. They are in agreement with starting heparin drip at this time. We will continue with amiodarone currently. Patient is completely asymptomatic without complaints of chest discomfort. * Monitor on telemetry. RESPIRATORY - * No history of intrinsic pulmonary disease. * Currently requiring nasal cannula at 2 L. * Obstructive sleep apnea. Encourage CPAP use at night. GI/NUTRITION - * Nonalcoholic cirrhosis: * Patient follows with [facility] as well as Dr. Villa locally. * Recent EGD demonstrates esophageal varices. * Patient continues to utilize rifaximin and lactulose. Would certainly continue. * Prophylaxis: RENAL/LYTES - * Hypomagnesemia: * Agree with aggressive repletion in the setting of tachyarrhythmia and prolonged QTC. - * Prior history of BPH. * Strict I&Os. ENDO - * DMII * BSGs per unit protocol. ISS --> gtt per unit policy. HEME - * Stable H&H * Subtherapeutic INR: * Will continue with current warfarin dosing. * Plan to start heparin secondary to above. * Titrate daily doses as needed. ID - * No concern for infectious contribution at this time. LINES/IV ACCESS - * PIVs x2 DVT PROPHYLAXIS - * Heparin drip * SCDs I have personally spent 55 minutes of critical care time in the direct man agement of this patient. This is a life/limb threatening event. This includes time spent evaluating patient, direct bedside care, chart review, placing orders, interpretation of diagnostic studies, discussion with consultants, patient, and family members, as well as other required patient management activities. This time is exclusive of all separately billable procedures, and teaching time and separate from and in addition to any other critical care service time. Thank you for allowing us to participate in the care of this patient. Please refer to my attending physician's documentation for any further recommendations. (2) Symptomatic tachycardia: (3) Non-ST elevation (NSTEMI) myocardial infarction: (4) Supratherapeutic INR: (5) Hypokalemia: (6) Hypomagnesemia: (7) Essential (primary) hypertension: (8) Hypercholesteremia: (9) Venous insufficiency: (10) Obstructive sleep apnea of adult: (11) CAD (coronary artery disease): (12) PAF (paroxysmal atrial fibrillation): (13) Type 2 diabetes mellitus: (14) Morbid obesity: (15) Cirrhosis of liver not due to alcohol: (16) Chronic systolic CHF (congestive heart failure): (17) Esophageal varices: (18) HTN (hypertension): (19) Hyperlipidemia: Supervising Physician Co-Signing Physician Notes Patient separately examined. Appears clinically stable. Discussed with cardiology. Continue amiodarone drip. Magnesium was replaced. Stable for transfer to floor with telemetry. History of Present Illness Attending Physician: Ileana eBnz DO History of Present Illness Patient is a 70-year-old male with a significant past medical history of coronary artery disease status post triple bypass surgery x2, coronary artery disease, hypertension, hyperlipidemia, diabetes, chronic systolic CHF, nonalcoholic cirrhosis with esophageal varices, prior history of osteomyelitis of the lumbar spine with ongoing low back pain issues, paroxysmal atrial fibrillation anticoagulated on Coumadin, venous insufficiency. Patient reports that at approximately 830 this evening he had an isolated episode of chest pain which was centralized to his chest. He denies any radiation of symptoms. He rated the pain as an 8/10. Patient utilize nitroglycerin which did temporarily completely resolve his symptoms. He does have a standing prescription for nitroglycerin, however he reports that he has not had to use it in probably greater than 1 year. He states that the pain did return shortly after at which time he contacted EMS as he was having associated lightheadedness and diaphoresis. While in route to the emergency department, he reports that his pain completely resolved. While in the emergency department, the patient was noted to go into a tachycardic rhythm with associated hypotension and lightheadedness. Patient was able to break this rhythm on 3 separate occasions with controlled breathing. He nearly required cardioversion. Concern was for V. tach rhythm. He received amiodarone bolus. Patient was noted to have hypomagnesemia as well as elevated troponin. Cardiology was consulted and the patient was started on amiodarone drip. Electrolytes are actively infusing upon arrival in the ICU. Upon evaluation in the emergency department, the patient is awake, alert, and oriented. He denies any complaints of chest pain at this time. He currently complains of low back pain which she reports is chronic and not new. He denies a ny symptoms of dizziness, lightheadedness, blurred vision, double vision, palpitations, nausea, or vomiting. The patient denies any numbness or weakness into his distal extremities. In conversation with the patient, he reports that for the past week, he has noted generalized fatigue as well as shortness of breath on exertion. He states that he can only tolerate approximately one half of the flight of steps in his house before having to stop to catch his breath. He states that this is been new over the past week. The chest pain he experienced tonight was the first and he reports that it occurred at rest. He states that his most recent echocardiogram was this winter. He reports that his previous most recent catheterization was in 2010 prior to his CABG. Allergies Allergy/AdvReac Type Severity Reaction Status Date / Time simvastatin AdvReac Intermediate GI UPSET- Verified 11/13/20 01:33 OK WITH LIPITOR pioglitazone AdvReac Mild GI UPSETS Verified 11/13/20 01:33 spironolactone AdvReac Mild NIPPLES Verified 11/13/20 01:33 HURT Home Medications Medication Instructions Recorded Confirmed Type baclofen 20 mg tablet 20 mg PO TID PRN #90 tab 12/04/18 11/13/20 Rx multivitamin 1 tab PO QAM 01/23/19 11/13/20 History miscellaneous medical supply #1 ea 04/26/19 09/29/20 Rx miscellaneous medical supply #1 ea 10/25/19 09/29/20 Rx lactulose 10 gram/15 mL oral 15 ml PO TID PRN #1892 ml 10/31/19 11/13/20 Rx solution CPAP Machine #1 ea 02/08/20 09/29/20 Rx propranolol 10 mg tablet 10 mg PO TID #270 tab 03/07/20 11/13/20 Rx rifaximin 550 mg tablet 550 mg PO TID #270 tab 03/07/20 11/13/20 Rx bupropion HCl 100 mg tablet,12 hr 100 mg PO QAM #90 ea 04/22/20 11/13/20 Rx sustained-release diclofenac sodium 1 % topical gel 4 g TOP QID #100 gm 05/15/20 11/13/20 Rx duloxetine 60 mg capsule,delayed 60 mg PO QAM #90 cap 05/15/20 11/13/20 Rx release pantoprazole 40 mg tablet,delayed 40 mg PO BID #180 tab 05/15/20 11/13/20 Rx release folic acid 1 mg PO QDD 05/22/20 11/13/20 History magnesium oxide 400 mg PO QPM 05/22/20 11/13/20 History furosemide 40 mg tablet 40 mg PO QAM #90 tab 05/27/20 11/13/20 Rx insulin glargine 100 unit/mL (3 12 unit SUBCUT HS 90 Days #45 ml 05/27/20 11/13/20 Rx mL) subcutaneous pen tamsulosin 0.4 mg capsule 0.4 mg PO HS 90 Days #90 cap 05/29/20 11/13/20 Rx diltiazem HCl 180 mg capsule,24 180 mg PO QAM #90 cap 08/08/20 11/13/20 Rx hr,extended release doxycycline monohydrate 100 mg 100 mg PO BIDM #180 cap 08/08/20 11/13/20 Rx capsule dutasteride [Avodart] 0.5 mg PO HS 08/12/20 11/13/20 History warfarin 7.5 mg PO HS 08/12/20 11/13/20 History nitroglycerin 0.6 mg sublingual 0.6 mg SUBLINGUAL DIRECTED PRN 08/20/20 11/13/20 Rx tablet #20 tab warfarin 5 mg tablet 5 mg PO .COMPLEX #90 tab 08/25/20 11/13/20 Rx gabapentin 300 mg capsule 300 mg PO TID #270 cap 09/24/20 11/13/20 Rx ezetimibe 10 mg tablet 10 mg PO QPM 90 Days #90 tab 10/16/20 11/13/20 Rx lisinopril 20 mg tablet 20 mg PO DAILY #90 tab 10/16/20 11/13/20 Rx omega-3 acid ethyl esters 1 gram 1 cap PO BID #180 cap 10/16/20 11/13/20 Rx capsule potassium chloride 20 mEq 20 meq PO BID #180 tab 10/16/20 11/13/20 Rx tablet,extended release eplerenone 25 mg tablet 25 mg PO QAM 90 Days #90 tab 10/29/20 11/13/20 Rx isosorbide mononitrate 120 mg 120 mg PO QPM #90 tab 10/29/20 11/13/20 Rx tablet,extended release 24 hr blood glucose control, normal #1 ea 11/11/20 Rx blood sugar diagnostic #100 ea 11/11/20 Rx lancets 33 gauge #400 ea 11/11/20 Rx Patient History Medical History Anemia Anxiety and depression CAD (coronary artery disease) Cauda equina compression Chronic systolic CHF (congestive heart failure) Cirrhosis of liver not due to alcohol Cyst of kidney, acquired Depression Enlarged prostate Esophageal varices Essential tremor GERD (gastroesophageal reflux disease) Gout Hepatic hemangioma HTN (hypertension) Hx of myocardial infarction 1994 Hyperlipidemia Hypertension Internal hemorrhoids Liver failure NOT CANDIDATE FOR LIVER TRANSPLANT - 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 [facility] History of coronary artery bypass graft x 3 X2 - 1993 AND 2011 - [facility] History of esophagogastroduodenoscopy (EGD) (~05/29/19) History of heart surgery atrial [place]al [place] [facility] [place] at same time as CABG History of right knee surgery X4 to repair broken patella Hx of colonoscopy Hx of vasectomy Family History Mother Stroke Father Stroke Aunt Cancer Liver cancer and stomach cancer Other No family history of adverse response to anesthesia No significant family history Denies family history of Colon cancer Ovarian cancer Prostate cancer Myocardial infarction Breast cancer Social History Smoking Status: Former smoker Age Quit Using Tobacco: 60; Second Hand Exposure: No; Hx Alcohol Use: No Hx Substance Use: Yes Last Used Substance: Days (ago) Last Used Substance Other:: presciption for medicinal marijuana Substance Use Type Other:: medical marijuana Preferred Language: Bulgarian Communication Ability: Effective Visual Impairment: No Limitations Hearing Ability: Normal Wallcovering Hanger Required: No Beliefs That Will Affect Care: None marital status: Current Living Situation: Spouse current occupational status: retired Other Information That Helps Us Care for You: No Feels Safe at Home: Yes Safety Concerns: Feels Safe At This Time Childhood Exposure to Second-Hand Smoke: Yes Dental Care, Regularly: Yes Physical Activity Frequency: 3-4 Times per Week Seatbelt Use: always Assistive Devices: Cane and Walker Review of Systems Review of Systems: A complete 10 point review of systems was reviewed with the patient with pertinent positives and negatives as per history of present illness. All else were negative. Physical Exam Physical Exam: VITAL SIGNS - Vital signs and nursing notes were reviewed. GENERAL - 70-year-old male appearing his stated age who is in no acute distress. Communicates well with provider and answers questions appropriately. HEAD - NC/AT. EYES - PERRL with EOMI bilaterally. Sclera anicteric. EARS - No deformities of external structures noted on gross examination bilater ally. NOSE - Midline and without cyanosis. No epistaxis or purulent drainage noted. MOUTH/OROPHARYNX - Without perioral cyanosis. Buccal mucosa pink and moist and without leukoplakia. Tongue midline with equal elevation of palate bilaterally. NECK - Neck with FROM. Supple to palpation. LUNGS - Chest wall symmetric without accessory muscle use, intercostals retractions, or central cyanosis. Normal vesicular breath sounds CTA B/L. No wheezes, rales, or rhonchi appreciated. CARDIAC - RRR with S1/S2. No murmur, rubs, or gallops appreciated. No reproducible tenderness to palpation appreciated over the anterior chest wall. ABDOMEN - Abdominal contour obese without pulsations or visible masses. BS normoactive all four quadrants. No tenderness, palpable masses, hepatosplenomegaly, or ascites noted. EXTREMITIES - No clubbing or peripheral cyanosis. Moderate pretibial edema present. +3/5 radial and dorsalis pedis pulses palpated throughout. +5/5 strength noted in UE/LE bilaterally. NEUROLOGIC - Cranial nerves II through XII grossly intact. Sensory intact to light touch throughout. PSYCH - A&Ox3 and cooperates fully with examiner. Pt is very pleasant and interacts well with examiner. Results & Data Results & Data ([facility]) Vital Signs (Past 12 Hours) Vital Signs Temp Pulse Pulse Resp BP BP Pulse Ox 11/13/20 03:14 99 H 18 135/95 100 11/13/20 02:44 102 H 155/108 H 11/13/20 01:51 97 H 18 148/94 H 100 11/13/20 01:47 97 H 18 181/108 H 97 11/13/20 01:34 102 H 18 135/92 98 11/13/20 01:14 101 H 8 L 139/94 99 11/13/20 01:10 175 H 31 H 98 11/13/20 01:05 76/58 L 11/13/20 01:04 187 H 27 H 11/13/20 00:58 36.7 C 188 H 20 76/58 L 96 Coding Level of Care Code Critical Care 1st 30-74 mins Diagnoses Admitted to intensive care unit Z78.9 Symptomatic tachycardia R00.0 Non-ST elevation (NSTEMI) myocardial infarction I21.4 Supratherapeutic INR R79.1 Hypokalemia E87.6 Hypomagnesemia E83.42 Essential (primary) hypertension I10 Hypercholesteremia E78.00 Venous insufficiency I87.2 Obstructive sleep apnea of adult G47.33 CAD (coronary artery disease) I25.10 PAF (paroxysmal atrial fibrillation) I48.0 Type 2 diabetes mellitus E11.9 Morbid obesity E66.01 Cirrhosis of liver not due to alcohol K74.60 Chronic systolic CHF (congestive heart failure) I50.22 Esophageal varices I85.00 HTN (hypertension) I10 Hyperlipidemia E78.5 Time Spent (min) 55
[2020-11-13 05:05] LABS: Mean Corpuscular Hgb Conc 31.4 g/dL (32-36)
--- NOTE | 2020-11-13 05:12 | Billing Data ---
Date of Service November 13, 2020 Coding Level of Care Code Critical Care 1st 30-74 mins Time Spent (min) 47
[2020-11-13 05:15] LABS: Hematocrit (blood only) 35.3 % (42-52); Hemoglobin 11.1 g/dL (14.0-18.0); Mean Corpuscular Hemoglobin 21.4 pg (25-34); RDW Coefficient of Variation 21.9 % (11.5-14.5); RDW Standard Deviation 53.9 fL (36.4-46.3); Red Blood Count 5.19 M/uL (4.7-6.1); White Blood Count 3.64 K/uL (4.8-10.8)
[2020-11-13 05:16] LABS: INR 1.6 (0.9-1.1); Partial Thromboplastin Ratio 1.2; Partial Thromboplastin Time 30.9 Seconds (21.0-31.0); Prothrombin Time 15.5 Seconds (9.0-12.0)
[2020-11-13 05:23] LABS: Albumin Level 2.5 gm/dl (3.4-5.0); BUN Creatinine Ratio 9.1 (10-20); Calcium 8.3 mg/dl (8.5-10.1); Creatinine Clr Calc Pharmacy 110.5 ml/min; Est GFR (Non-African American) 86.3 ml/min; Magnesium 2.2 mg/dl (1.8-2.4); Potassium 3.7 mmol/L (3.5-5.1)
[2020-11-13 05:26] LABS: Albumin Globulin Ratio 0.6 (0.9-2); Bilirubin,Total 0.6 mg/dl (0.2-1); Globulin 4.4 gm/dl (2.5-4.0); Total Protein 6.9 gm/dl (6.4-8.2)
[2020-11-13 05:37] LABS: Platelet Count 123 K/uL (130-400)
[2020-11-13 05:38] LABS: Basophils # (auto) 0.01 K/uL (0-0.2); Basophils % (auto) 0.3 %; Eosinophils # (auto) 0.05 K/uL (0-0.5); Eosinophils % (auto) 1.4 %; Hypochromasia Present; Lymphocytes # (auto) 1.04 K/uL (1.2-3.4); Lymphocytes % (auto) 28.6 %; Microcytosis Present; Monocytes # (auto) 0.22 K/uL (0.11-0.59); Neutrophils # (auto) 2.32 K/uL (1.4-6.5); Neutrophils % (auto) 63.7 %; Platelet Estimate Decreased (Normal); Polychromasia 1+; Target Cells 1+
[2020-11-13] MEDS ORDERED: METOPROLOL TARTRATE 1 MG/ML VIAL IV SCH (06:00)
[2020-11-13] MEDS ORDERED: Heparin IV Adult Wt-Based Standard *NO* Bolus Protocol IV SCH (06:18)
[2020-11-13] MEDS ORDERED: HEPARIN SODIUM/DEXTROSE 25,000 UNITS/500 ML BAG IV SCH (06:34)
[2020-11-13] MEDS: AMIODARONE / D5W 360 MG/200 ML BAG IV SCH ×2 (07:30→13:31)
--- NOTE | 2020-11-13 08:55 | Electrocardiogram Report ---
Test Reason : Blood Pressure : / mmHG Vent. Rate : 101 BPM Atrial Rate : 101 BPM P-R Int : 136 ms QRS Dur : 156 ms QT Int : 464 ms P-R-T Axes : 009 074 014 degrees QTc Int : 601 ms Probable Atrial flutter Right bundle branch block Old Inferior infarct (cited on or before 12-AUG-2020) Abnormal ECG When compared with ECG of 12-AUG-2020 11:52, Right bundle branch block is now Present Confirmed by Denton Roberts ([id number]) on 11/13/2020 8:54:32 AM Referred By: REFERRED SELF Confirmed By:Denton Roberts
--- NOTE | 2020-11-13 08:57 | Electrocardiogram Report ---
Test Reason : Blood Pressure : / mmHG Vent. Rate : 096 BPM Atrial Rate : 096 BPM P-R Int : 176 ms QRS Dur : 178 ms QT Int : 466 ms P-R-T Axes : 016 046 024 degrees QTc Int : 588 ms Probable Atrial flutter Right bundle branch block Old Inferior infarct (cited on or before 12-AUG-2020) Abnormal ECG When compared with ECG of 13-NOV-2020 01:15, No significant change Confirmed by Denton Roberts ([id number]) on 11/13/2020 8:57:15 AM Referred By: REFERRED SELF Confirmed By:Denton Roberts
[2020-11-13] MEDS ORDERED: DULoxetine HCL 60 MG CAP PO SCH (09:00)
--- NOTE | 2020-11-13 09:41 | XRay Report ---
XR chest 1V portable CLINICAL HISTORY: Chest Pain COMPARISON STUDY: August 12, 2020 FINDINGS: No pneumothorax. No definite pleural effusion is seen however evaluation is limited because bilateral costophrenic ang les are outside the field of view. Diffuse reticular prominence of pulmonary interstitium is again seen bilaterally. Mild interval enlargement of cardiac silhouette, now appear globular. Mild pulmonary vascular congestion is seen.. Osseous structures: unremarkable vertebral bodies are poorly seen. Midline sternotomy wires are again seen. IMPRESSION: 1. Mild interval enlargement of the cardiac silhouette. Pulmonary vascular congestion. Please correl ate above-mentioned findings with results of echocardiography. 2. Limited exam. Short-term follow-up with PA and lateral chest radiograph is suggested. ACT 112: Positive. There are findings on this exam that require communication between the performing entity and the patient following Patient Test Result Information Act ([place] Act 112) guidelines. The above report was generated using voice recognition software. It may contain grammatical, syntax o r spelling errors. Electronically signed by: Loida Gibbons DO 11/13/2020 9:40 AM
--- NOTE | 2020-11-13 10:08 | Cardiology Consultation ---
Date of Consultation November 13, 2020 Assessment & Plan (1) Symptomatic tachycardia: -atrial flutter with a rapid ventricular response on his admission EKG. Under -no evidence of ventricular tachycardia. -agree with intravenous amiodarone. -monitor shows sinus rhythm this morning. -can convert to oral dosing once current intravenous bag completed. 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 -can convert intravenous metoprolol to oral dosing. -stable for transfer to telemetry. (2) Elevated troponin I level: -likely a supply demand mismatch. -has moderate left ventricular hypertrophy on echocardiogram. (3) CAD (coronary artery disease): -s/p CABG x3 in 1993. -redo procedure in March 2011. -continue conservative management. (4) Essential (primary) hypertension: -BP elevated currently. -further recommendations as he improves clinically. (5) Hypercholesteremia: -statin intolerant. -continue Zetia. History of Present Illness Attending Physician: Gema Valiente MD History of Present Illness Mr. Herring 70-year-old male admitted yesterday with symptomatic tachycardia. This consultation was ordered to assistance cardiac management. Of note, patient is well known to me from the outpatient setting. The patient was in his usual state of health until last evening. While watching television, he had the abrupt onset of substernal chest discomfort, diaphoresis, and lightheadedness. The patient administered sublingual nitroglycerin tablet and his symptoms resolved. Total duration of his discomfort was 5-10 minutes. He had a recurrent episode later in the evening which prompted a call to 911. On arrival here, patient was noted to be in a wide complex tachycardia. He was able to break his tachycardia with deep breathing. While tachycardic, the patient was diaphoretic, complaining of dizziness, and hypotensive according to the record. I was unable to find evidence of those strips in medical record. Review of his EKGs note atrial flutter with a complete right bundle branch block. He has demonstrated some episodes of an elevated ventricular response. The patient carries a history of paroxysmal atrial fibrillation and flutter previously. He was treated with amiodarone which was eventually discontinued in November 2015 because of hyperthyroidism. The patient also carries a history of coronary artery disease. He had a 3 vessel bypass performed in 1993 and a redo procedure in March 2011. He has done well from a cardiac perspective since that time. Currently, patient is resting comfortably in bed without complaints. Past medical and surgical history 1. Coronary artery disease-see above 2. CABG x3-1993 3. Redo CABG-February 2011 4. Hypertension 5. Moderate left ventricular hypertrophy 6. Paroxysmal atrial fibrillation 7. 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 Chronic diastolic CHF 9. Diabetes mellitus 10. Non alcoholic steatohepatitis 11. Hepatic hemangioma 12. Esophageal varices 13. GERD 14. Alpha thalassemia minor 15. Essential tremor 16. Gout 17. Renal cyst 18. BPH 19. Cauda equina syndrome 20. Morbid obesity 21. Obstructive sleep apnea 22. Spinal stenosis 23. Venous insufficiency 24. Anxiety/depression 25. Chronic osteomyelitis of the lumbar spine 26. Lumbar laminectomy 27. Vasectomy Social history and lives with his Drug and alcohol counselor Quit tobacco at age 57 Occasional alcohol Family history Noncontributory Review of systems A 10 review systems was undertaken and negative except for that described above Allergies Allergy/AdvReac Type Severity Reaction Status Date / Time simvastatin AdvReac Intermediate GI UPSET- Verified 11/13/20 01:33 OK WITH LIPITOR pioglitazone AdvReac Mild GI UPSETS Verified 11/13/20 01:33 spironolactone AdvReac Mild NIPPLES Verified 11/13/20 01:33 HURT Home Medications Medication Instructions Recorded Confirmed Type baclofen 20 mg tablet 20 mg PO TID PRN #90 tab 12/04/18 11/13/20 Rx multivitamin 1 tab PO QAM 01/23/19 11/13/20 History miscellaneous medical supply #1 ea 04/26/19 09/29/20 Rx miscellaneous medical supply #1 ea 10/25/19 09/29/20 Rx lactulose 10 gram/15 mL oral 15 ml PO TID PRN #1892 ml 10/31/19 11/13/20 Rx solution CPAP Machine #1 ea 02/08/20 09/29/20 Rx propranolol 10 mg tablet 10 mg PO TID #270 tab 03/07/20 11/13/20 Rx rifaximin 550 mg tablet 550 mg PO TID #270 tab 03/07/20 11/13/20 Rx bupropion HCl 100 mg tablet,12 hr 100 mg PO QAM #90 ea 04/22/20 11/13/20 Rx sustained-release diclofenac sodium 1 % topical gel 4 g TOP QID #100 gm 05/15/20 11/13/20 Rx duloxetine 60 mg capsule,delayed 60 mg PO QAM #90 cap 05/15/20 11/13/20 Rx release pantoprazole 40 mg tablet,delayed 40 mg PO BID #180 tab 05/15/20 11/13/20 Rx release folic acid 1 mg PO QDD 05/22/20 11/13/20 History magnesium oxide 400 mg PO QPM 05/22/20 11/13/20 History furosemide 40 mg tablet 40 mg PO QAM #90 tab 05/27/20 11/13/20 Rx insulin glargine 100 unit/mL (3 12 unit SUBCUT HS 90 Days #45 ml 05/27/20 11/13/20 Rx mL) subcutaneous pen tamsulosin 0.4 mg capsule 0.4 mg PO HS 90 Days #90 cap 05/29/20 11/13/20 Rx diltiazem HCl 180 mg capsule,24 180 mg PO QAM #90 cap 08/08/20 11/13/20 Rx hr,extended release doxycycline monohydrate 100 mg 100 mg PO BIDM #180 cap 08/08/20 11/13/20 Rx capsule dutasteride [Avodart] 0.5 mg PO HS 08/12/20 11/13/20 History warfarin 7.5 mg PO HS 08/12/20 11/13/20 History nitroglycerin 0.6 mg sublingual 0.6 mg SUBLINGUAL DIRECTED PRN 08/20/20 11/13/20 Rx tablet #20 tab warfarin 5 mg tablet 5 mg PO .COMPLEX #90 tab 08/25/20 11/13/20 Rx gabapentin 300 mg capsule 300 mg PO TID #270 cap 09/24/20 11/13/20 Rx ezetimibe 10 mg tablet 10 mg PO QPM 90 Days #90 tab 10/16/20 11/13/20 Rx lisinopril 20 mg tablet 20 mg PO DAILY #90 tab 10/16/20 11/13/20 Rx omega-3 acid ethyl esters 1 gram 1 cap PO BID #180 cap 10/16/20 11/13/20 Rx capsule potassium chloride 20 mEq 20 meq PO BID #180 tab 10/16/20 11/13/20 Rx tablet,extended release eplerenone 25 mg tablet 25 mg PO QAM 90 Days #90 tab 10/29/20 11/13/20 Rx isosorbide mononitrate 120 mg 120 mg PO QPM #90 tab 10/29/20 11/13/20 Rx tablet,extended release 24 hr blood glucose control, normal #1 ea 11/11/20 Rx blood sugar diagnostic #100 ea 11/11/20 Rx lancets 33 gauge #400 ea 11/11/20 Rx Patient History Medical History Anemia Anxiety and depression CAD (coronary artery disease) Cauda equina compression Chronic systolic CHF (congestive heart failure) Cirrhosis of liver not due to alcohol Cyst of kidney, acquired Depression Enlarged prostate Esophageal varices Essential tremor GERD (gastroesophageal reflux disease) Gout Hepatic hemangioma HTN (hypertension) Hx of myocardial infarction 1994 Hyperlipidemia Hypertension Internal hemorrhoids Liver failure NOT CANDIDATE FOR LIVER TRANSPLANT - care home (current) use of anticoagulants warfarin daily Mass of petrous temporal bone Medical marijuana use Morbid obesity BMI 43 Osteomyelitis of lumbar spine PAF (paroxysmal atrial fibrillation) Pancytopenia Pigmented nevus Pulmonary nodule Seborrheic keratosis Sleep apnea USES CPAP Spinal stenosis of lumbar region (05/15/13) Thyroid nodule Tubular adenoma of colon Type 2 diabetes mellitus Vitamin D deficiency Surgical History History of back surgery X3 - 2 FOR FUSION AND LAST TO CLEAN UP INFECTION History of cardiac cath X4 - [facility] - LAST ONE 02/2011 ? [facility] [place] History of coronary artery bypass graft x 3 X2 - 1993 AND 2010 - [place] History of esophagogastroduodenoscopy (EGD) (~05/29/19) History of heart surgery atrial septal deficit repair @ [facility] 1993 at same time as CABG History of right knee surgery X4 to repair broken patella Hx of colonoscopy Hx of vasectomy Family History Mother Stroke Father Stroke Aunt Cancer Liver cancer and stomach cancer Other No family history of adverse response to anesthesia No significant family history Denies family history of Colon cancer Ovarian cancer Prostate cancer Myocardial infarction Breast cancer Social History Smoking Status: Former smoker Age Quit Using Tobacco: 60; Second Hand Exposure: No; Hx Alcohol Use: No Hx Substance Use: Yes Last Used Substance: Days (ago) Last Used Substance Other:: presciption for medicinal marijuana Substance Use Type Other:: medical marijuana Preferred Language: Mohawk Communication Ability: Effective Visual Impairment: No Limitations Hearing Ability: Normal Daily Release And Dupe Printer Required: No Beliefs That Will Affect Care: None marital status: Current Living Situation: Spouse current occupational status: retired Other Information That Helps Us Care for You: No Feels Safe at Home: Yes Safety Concerns: Feels Safe At This Time Childhood Exposure to Second-Hand Smoke: Yes Dental Care, Regularly: Yes Physical Activity Frequency: 3-4 Times per Week Seatbelt Use: always Assistive Devices: Cane and Walker Physical Exam Physical Exam: In general this is an obese black male in no acute distress. HEENT exam is normal. Neck is supple with full carotid upstrokes. There are no carotid bruits. No jugular venous distension. There is no thyromegaly. Cardiovascular exam reveals a regular rhythm with a normal S1 and S2. Heart sounds are distant. A prominent S4 is noted. No obvious murmurs. Chest reveals a well-healed midline scar with some minor keloid formation distally. Lungs are clear without rales, rhonchi, or wheezes. Abdomen is obese without bruits. Extremities show intact radial artery pulses bilaterally. No pretibial edema. Results & Data ([facility]) Vital Signs (Past 12 Hours) Vital Signs Temp Pulse Pulse Resp BP BP Pulse Ox 11/13/20 08:00 94 H 11/13/20 06:03 99 H 159/99 H 11/13/20 06:01 36.8 C 97 H 16 159/109 H 99 11/13/20 05:01 81 22 158/109 H 100 11/13/20 04:17 36.8 C 97 H 13 162/106 H 100 11/13/20 04:00 36.8 C 93 H 18 162/106 H 100 11/13/20 03:14 99 H 18 135/95 100 11/13/20 02:44 102 H 155/108 H 11/13/20 01:51 97 H 18 148/94 H 100 11/13/20 01:47 97 H 18 181/108 H 97 11/13/20 01:34 102 H 18 135/92 98 11/13/20 01:14 101 H 8 L 139/94 99 11/13/20 01:10 175 H 31 H 98 11/13/20 01:05 76/58 L 11/13/20 01:04 187 H 27 H 11/13/20 00:58 36.7 C 188 H 20 76/58 L 96 Laboratory Results CBC notes a hemoglobin of 11.1, hematocrit 35.3, white count 3.64, platelet count [id number]. Electrolytes note a sodium of 144, potassium 3.7, chloride 112, bicarb 29, BUN 8, creatinine 0.91, glucose of 145. Magnesium level is 1.7 on admission, currently 2.2. Initial troponin was 0.06 with a follow-up value of 0.072. Diagnostic Findings EKG notes atrial flutter with a rapid ventricular response. There is a complete right bundle branch block. Chest x-ray notes cardiomegaly. An echocardiogram performed on August 13, 2020 noted normal left ventricular systolic function with ejection fraction of 60-65%. There was moderate left ventricular hypertrophy. PG Care Time/CCT Total # of Minutes Spent Total Time Spent with Patient: Total time spent is greater than 50% in coordination of care (as documented) at patient's floor/unit and/or counseling patient: Coding Level of Care Code 41276 Initial Inpt Care Lvl 3 Diagnoses Symptomatic tachycardia R00.0 Elevated troponin I level R74.8 CAD (coronary artery disease) I25.10 Essential (primary) hypertension I10 Hypercholesteremia E78.00
[2020-11-13] MEDS ORDERED: CALCIUM GLUCONATE 10% 1,000 MG in SODIUM CHLORIDE 0.9% 50 ML IV SCH (10:30)
[2020-11-13] MEDS: buPROPion SR 100 MG TABCR PO SCH (10:48)
[2020-11-13] MEDS: rifAXIMin 550 MG TABLET PO SCH ×3 (10:48→19:37)
[2020-11-13] MEDS: FUROSEMIDE 40 MG TAB PO SCH (10:48)
[2020-11-13] MEDS: PANTOprazole 40 MG TAB PO SCH ×2 (10:48→19:37)
[2020-11-13] MEDS: DULoxetine HCL 30 MG CAP PO SCH (10:49)
[2020-11-13] MEDS ORDERED: GLUCOSE 40% GEL 15 GM TUBE PO PRN (11:15)
[2020-11-13] MEDS ORDERED: GLUCOSE 10 TABS/TUBE PO PRN (11:15)
[2020-11-13] MEDS ORDERED: DEXTROSE 50% 50 ML SYRINGE IV PRN (11:15)
[2020-11-13] MEDS ORDERED: GLUCAGON FOR INJ 1 MG VIAL IM PRN (11:15)
[2020-11-13] MEDS ORDERED: CARBOHYDRATES FOR HYPOGLYCEMIA PO PRN (11:15)
[2020-11-13] MEDS: INSULIN ASPART 100 UNITS/ML 3 ML PEN SC SCH ×3 (11:43→21:12)
--- NOTE | 2020-11-13 13:43 | Hospitalist Progress Note ---
Date of Service November 13, 2020 Assessment & Plan (1) Wide-complex tachycardia: Patient is a medically complex 70 year old male with PMHx ALDO, CHF, Atrial Fibrillation, Cauda Equina syndrome, HTN, CAD s/p triple bypass x2, Cirrhosis, Depression, HTN, that presented by EMS for chief complaint of chest discomfort, diaphoresis, and lightheadedness. Upon arrival to the ED patient was found to have an episode of tachycardia and hypotension. A flutter with RVR BP normalized, HR 89 Amiodarone bolus and Lopressor 5mg IV given in the ED TTE with LVSF nl., EF 60-65%, no significant change from prior -Will continue with Amiodarone gtt and Lopressor 5mg IV q6h; consider t ransitioning to orals in the AM -Cardiology consulted - rhythm thought to be atrial flutter w/ RVR - converted IV Amiodarone to oral -goal K >4 and Mag >2 NSTEMI Trop 0.06 --> 0.072 Elevated troponin likely due to tachycardia - Cardiology consulted - thought to be supply demand mismatch - continue conservative management HTN -Continue Isosorbide mononitrate -Hold propranolol while pushing Lopressor IV -Hold home diltiazem Depression -Continue Buspar and Cymbalta if able to take PO CHF -Monitor I/O's -Esteves catheter placed -Continue Lasix 40mg PO, can convert to IV if patient unable to take PO due to laying on back Atrial Fibrillation -Hold Warfarin at this time -Cool Diltiazem Liver Cirrhosis -Continue Xifaxin -Hold propranolol Fall prior to admission no pain noted - PT/OT ordered Dispo: ICU for close monitoring FEN: NPO DVT: Hep 5,000 Q8H Code: Full. Discussed in full with patient and his Amy Villela (H: [phone], C: [phone]) Admission and Anticipated Discharge Date Admission Date: November 13, 2020 Supervising Physician Co-Signing Physician Notes Resident Physician Supervision Note: I independently interviewed and examined the patient and verified the barton history and physical, reviewed labs and image studies and agree with resident Dr. Dahl findings and care plan. Subjective He was doing okay this morning with no chest pain or shortness of breath. He was having 8/10 pain in his left wrist which was were he was having potassium infusing. Review of Systems Review of Systems: Constitutional: denies fevers, chills Cardiac: denies chest pain, palpitations, orthopnea Pulm.: denies cough, shortness of breath GI: denies nausea, vomiting : denies urinary pain, frequency, urgency Physical Exam Physical Exam: Constitutional well appearing, NAD Eyes PERRL, conjunctivae normal, anicteric sclerae ENMT external ear and nose normal, oropharynx normal Respiratory normal respiratory effort, lungs clear to auscultation Auscultation: no crackles, no rales, no rhonchi and no wheezes Cardiovascular Rate/Rhythm: regular rhythm and + tachycardic Heart Sounds: normal S1 and normal S2; no gallop, no murmur and no cardiac rub Extremities: 1+ pitting edema Gastrointestinal (Abdomen) normal bowel sounds, soft, nontender, no hepatosplenomegaly Percussion/Palpation: abdomen soft; abdomen nontender, no guarding and abdomen not rigid Musculoskeletal Head/Neck/Chest: normocephalic and head atraumatic Skin no rashes, warm and dry Neurologic moves all extremities Psychiatric Orientation: alert and oriented x 3 Eye Contact: good eye contact Affect: + anxious affect Results & Data Results & Data ([facility]) Vital Signs (Past 12 Hours) Vital Signs Temp Pulse Pulse Resp BP BP Pulse Ox 11/13/20 08:00 94 H 11/13/20 06:03 99 H 159/99 H 11/13/20 06:01 36.8 C 97 H 16 159/109 H 99 11/13/20 05:01 81 22 158/109 H 100 11/13/20 04:17 36.8 C 97 H 13 162/106 H 100 11/13/20 04:00 36.8 C 93 H 18 162/106 H 100 11/13/20 03:14 99 H 18 135/95 100 11/13/20 02:44 102 H 155/108 H 11/13/20 01:51 97 H 18 148/94 H 100 11/13/20 01:47 97 H 18 181/108 H 97 CBC Results Results Complete Blood Count Results: RBC 5.19 M/uL (4.7-6.1) 11/13/20 WBC 3.64 K/uL (4.8-10.8) L 11/13/20 Hgb 11.1 g/dL (14.0-18.0) L 11/13/20 Hct 35.3 % (42-52) L 11/13/20 Plt Count 123 K/uL (130-400) L 11/13/20 Chemistry (BMP) Results BMP Results: Sodium 144 mmol/L (136-145) 11/13/20 Potassium 3.7 mmol/L (3.5-5.1) 11/13/20 Chloride 112 mmol/L (98-107) H 11/13/20 BUN 8 mg/dl (7-18) 11/13/20 Creatinine 0.91 mg/dl (0.6-1.4) 11/13/20 Glucose 145 mg/dl (70-99) H 11/13/20 Resident Activity Tracking Resident Involvement: Resident Care Provided Care Provided: Adult [facility] Medicine
[2020-11-13 14:31] LABS: Partial Thromboplastin Ratio > 5.3
[2020-11-13 14:33] LABS: Partial Thromboplastin Time > 139.0 Seconds (21.0-31.0)
--- NOTE | 2020-11-13 14:42 | XCELERA ---
[id number]
[2020-11-13] MEDS: ISOSORBIDE MONO EXTENDED REL 60 MG TABCR PO SCH (19:37)
[2020-11-13] MEDS: DICLOFENAC SOD 1% GEL 100 GM TUBE EXT SCH (19:37)
[2020-11-13 20:50] LABS: Partial Thromboplastin Ratio 1.7; Partial Thromboplastin Time 43.4 Seconds (21.0-31.0)
[2020-11-13] MEDS: HEPARIN SOD 5,000 UNIT/0.5 ML VIAL SQ SCH (21:24)
[2020-11-14] MEDS ORDERED: DICLOFENAC SOD 1% GEL 100 GM TUBE EXT ONE (00:18)
[2020-11-14] MEDS: AMIODARONE / D5W 360 MG/200 ML BAG IV SCH (00:21)
--- NOTE | 2020-11-14 03:48 | Billing Data ---
Date of Service November 14, 2020 Coding Level of Care Code 44962 Initial Inpt Care Lvl 3
[2020-11-14] MEDS: HEPARIN SOD 5,000 UNIT/0.5 ML VIAL SQ SCH ×3 (06:10→21:06)
[2020-11-14 07:14] LABS: Mean Corpuscular Hgb Conc 31.3 g/dL (32-36); Nucleated RBC # (auto) 0.03 K/uL (0-0)
[2020-11-14 07:29] LABS: Hematocrit (blood only) 33.2 % (42-52); Hemoglobin 10.4 g/dL (14.0-18.0); Mean Corpuscular Hemoglobin 21.3 pg (25-34); RDW Coefficient of Variation 22.2 % (11.5-14.5); RDW Standard Deviation 54.9 fL (36.4-46.3); Red Blood Count 4.88 M/uL (4.7-6.1); White Blood Count 2.91 K/uL (4.8-10.8)
[2020-11-14 07:48] LABS: BUN Creatinine Ratio 9.7 (10-20); Calcium 8.1 mg/dl (8.5-10.1); Creatinine Clr Calc Pharmacy 154.1 ml/min; Est GFR (African American) 115.9 ml/min; Magnesium 1.9 mg/dl (1.8-2.4)
[2020-11-14 08:00] LABS: Anisocytosis Present; Basophils # (auto) 0.01 K/uL (0-0.2); Basophils % (auto) 0.3 %; Eosinophils # (auto) 0.09 K/uL (0-0.5); Eosinophils % (auto) 3.1 %; Immature Granulocytes # (auto) 0.01 K/uL (0.00-0.02); Immature Granulocytes % (auto) 0.3 %; Lymphocytes # (auto) 1.23 K/uL (1.2-3.4); Lymphocytes % (auto) 42.3 %; Microcytosis Present; Monocytes # (auto) 0.29 K/uL (0.11-0.59); Neutrophils # (auto) 1.28 K/uL (1.4-6.5); Platelet Count 105 K/uL (130-400); Platelet Estimate Decreased (Normal); Target Cells 2+
[2020-11-14] MEDS: INSULIN ASPART 100 UNITS/ML 3 ML PEN SC SCH ×4 (08:49→21:07)
[2020-11-14] MEDS: PANTOprazole 40 MG TAB PO SCH ×2 (08:50→21:05)
[2020-11-14] MEDS: rifAXIMin 550 MG TABLET PO SCH ×3 (08:50→21:06)
[2020-11-14] MEDS: FUROSEMIDE 40 MG TAB PO SCH (08:50)
[2020-11-14] MEDS: DULoxetine HCL 30 MG CAP PO SCH (08:51)
[2020-11-14] MEDS: dilTIAZem ER 180 MG CAPCR PO SCH (08:51)
[2020-11-14] MEDS: buPROPion SR 100 MG TABCR PO SCH (08:51)
[2020-11-14] MEDS: POTASSIUM CHLORIDE / WTR 10 MEQ/100 ML PLCT IV SCH ×3 (08:52→13:34)
[2020-11-14] MEDS: DICLOFENAC SOD 1% GEL 100 GM TUBE EXT SCH ×2 (08:52→21:08)
[2020-11-14] MEDS: AMIODARONE 200 MG TAB PO SCH ×3 (09:16→21:06)
[2020-11-14] MEDS: POTASSIUM CHLORIDE CRTAB 20 MEQ TABCR PO SCH ×4 (09:16→15:35)
--- NOTE | 2020-11-14 10:43 | Medical Student Progress Note ---
Date of Service November 14, 2020 Assessment & Plan (1) Atrial flutter: Mr. Herring is a 70-year-old male with a history of ALDO, CHF, Atrial Fibrillation, Cauda Equina syndrome, CAD s/p triple bypass x2, Cirrhosis, Depression, and HTN who presented via EMS for chief complaint of chest discomfort, diaphoresis, and lightheadedness. Upon arrival to the ED, patient was found to have an episode of tachycardia and hypotension. Atrial flutter with RVR: - Likely cause of abnormal rhythm, presenting symptoms. - BP slightly elevated but controlled, HR 67. - Amiodarone bolus and Lopressor 5mg IV given in the ED followed by Amiodarone gtt and Lopressor IV inpatient, now transitioned to oral Amiodarone. - TTE with normal left ventricular systolic function, EF 60-65%, no significant change from prior echo. - Currently anticoagulated with heparin. Will restart warfarin upon discharge. - Appreciate cardiology recommendations. Microcytic Anemia: - Likely due to alpha thalassemia; however, transferrin saturation low in September. Will replete with 100 mg of Fe IV. Hypokalemia: - K at 3.0 today; Mg at 1.9. - Will replete with IV an PO potassium. Recheck this afternoon. - Patient previously did not tolerate IV potassium well. Education provided on need for normal potassium level for heart function, patient agreeable. - Goal K >4 and Mag >2. Elevated Troponin: - Trop 0.06 --> 0.072. - Elevated troponin likely due to tachycardia. - Per cardiology, thought to be supply demand mismatch. - Continue to manage conservatively. HTN: - Continue Isosorbide mononitrate. - Resume home lisinopril. - Continue diltiazem. - Continue to hold propranolol. - Encourage continued CPAP use. CPAP to be ordered if patient remains inpatient. Depression: - Continue Buspar and Cymbalta. Hyperlipidemia: - Continue ezetimibe per home regimen. BPH: - Continue tamsulosin and dutasteride per home regimen. Vertebral Fractures: - Continue Diclofenac gel per home regimen. - Restart Gabapentin. - Hold baclofen. CHF: -Monitor I/O's. -Esteves catheter placed. -Continue Lasix 40mg PO QAM. Liver Cirrhosis - Continue Xifaxin - Hold eplerenone - Restart lactulose. Fall: - Prior to admission, patient states that he 'collapsed to the ground' while ambulating to the ambulance. No traumatic mechanism. - No pain noted. - PT/OT evaluation placed. Dispo: PCU with Telemetry FEN: Heart Healthy DVT: Hep 5,000 Q8H Code: Full. Discussed in full with patient and his Amy Villela on admission (H: [phone], C: [phone]) Admission and Anticipated Discharge Date Admission Date: November 13, 2020 Supervising Attestation I was present with the medical student throughout the service, interview, and the physical exam. I independently interviewed the patient and performed the physical exam. I reviewed the chart and verified the documentation and I agree with the assessment and plan of Lilliam Alvarez, MS4. Joellen Sommer DO [facility] Resident Attending Physician Medical Student Supervision Note: I independently interviewed and examined the patient and verified the barton history and physical, reviewed labs and image studies, discussed the case with the medical student Lilliam Alvarez and the Resident physician Joellen Sommer and agree with the findings and care plan. Subjective Mr. Herring states that feels well overall today but endorses some back pain which is a chronic issue due to his broken vertebrae. He states that he is not having any chest pain, shortness of breath, or palpitations at this time. He is voiding, defecating and taking PO intake well. Review of Systems Review of Systems: All systems reviewed & are unremarkable except as noted in HPI & below Cardiovascular: + edema Gastrointestinal: no abdominal pain, no nausea and no vomiting Genitourinary: + urinary incontinence (patient states that this is a chronic issue) Physical Exam Physical Exam: Patient is resting comfortably on exam. No acute distress. Constitutional: WD/WN, vitals as above Respiratory: normal respiratory effort, lungs clear to auscultation Cardiovascular: RRR, no murmur, no edema Extremities: + edema; no calf tenderness Gastrointestinal (Abdomen): normal bowel sounds, soft, nontender, no hepatosplenomegaly Skin: no rashes, warm and dry Psychiatric: A+Ox3, euthymic affect Results & Data ([facility]) Vital Signs (Past 12 Hours) Vital Signs Temp Pulse Resp BP Pulse Ox 11/14/20 08:18 36.7 C 67 20 154/82 H 96 11/14/20 04:31 37.0 C 66 19 146/78 H 94 11/14/20 00:02 36.8 C 67 19 167/83 H 98 Laboratory Results 11/14/20 11/14/20 11/14/20 07:20 06:57 06:57 WBC 2.91 L RBC 4.88 Hgb 10.4 L Hct 33.2 L MCV 68.0 L MCH 21.3 L MCHC 31.3 L RDW Std Deviation 54.9 H RDW Coeff of Jt 22.2 H Plt Count 105 L Immature Gran % (Auto) 0.3 Neut % (Auto) 44.0 Lymph % (Auto) 42.3 Sutter % (Auto) 10.0 Eos % (Auto) 3.1 Baso % (Auto) 0.3 Neut # (Auto) 1.28 L Lymph # (Auto) 1.23 Sutter # (Auto) 0.29 Eos # (Auto) 0.09 Baso # (Auto) 0.01 Immature Gran # (Auto) 0.01 Absolute Nucleated RBC 0.03 H Nucleated RBC % (auto) 1.0 Platelet Estimate Decreased L Anisocytosis Present Microcytosis Present Target Cells 2+ APTT PTT Ratio Sodium 144 Potassium 3.0 L D Chloride 110 H Carbon Dioxide 30 Anion Gap 4.0 BUN 6 L Creatinine 0.65 Est Cr Clr Drug Dosing 154.1 Est GFR ( Amer) 115.9 Est GFR (Non-Af Amer) 100.0 BUN/Creatinine Ratio 9.7 L Glucose 79 POC Glucose 82 Calcium 8.1 L Magnesium 1.9 TSH 11/13/20 11/13/20 11/13/20 21:11 20:17 16:12 WBC RBC Hgb Hct MCV MCH MCHC RDW Std Deviation RDW Coeff of Jt Plt Count Immature Gran % (Auto) Neut % (Auto) Lymph % (Auto) Sutter % (Auto) Eos % (Auto) Baso % (Auto) Neut # (Auto) Lymph # (Auto) Sutter # (Auto) Eos # (Auto) Baso # (Auto) Immature Gran # (Auto) Absolute Nucleated RBC Nucleated RBC % (auto) Platelet Estimate Anisocytosis Microcytosis Target Cells APTT 43.4 H PTT Ratio 1.7 Sodium Potassium Chloride Carbon Dioxide Anion Gap BUN Creatinine Est Cr Clr Drug Dosing Est GFR ( Amer) Est GFR (Non-Af Amer) BUN/Creatinine Ratio Glucose POC Glucose 85 123 H Calcium Magnesium TSH 11/13/20 11/13/20 11/13/20 14:01 12:51 11:27 WBC RBC Hgb Hct MCV MCH MCHC RDW Std Deviation RDW Coeff of Jt Plt Count Immature Gran % (Auto) Neut % (Auto) Lymph % (Auto) Sutter % (Auto) Eos % (Auto) Baso % (Auto) Neut # (Auto) Lymph # (Auto) Sutter # (Auto) Eos # (Auto) Baso # (Auto) Immature Gran # (Auto) Absolute Nucleated RBC Nucleated RBC % (auto) Platelet Estimate Anisocytosis Microcytosis Target Cells APTT > 139.0 H* Cancelled PTT Ratio > 5.3 Cancelled Sodium Potassium Chloride Carbon Dioxide Anion Gap BUN Creatinine Est Cr Clr Drug Dosing Est GFR ( Amer) Est GFR (Non-Af Amer) BUN/Creatinine Ratio Glucose POC Glucose 133 H Calcium Magnesium TSH 11/13/20 04:40 WBC RBC Hgb Hct MCV MCH MCHC RDW Std Deviation RDW Coeff of Jt Plt Count Immature Gran % (Auto) Neut % (Auto) Lymph % (Auto) Sutter % (Auto) Eos % (Auto) Baso % (Auto) Neut # (Auto) Lymph # (Auto) Sutter # (Auto) Eos # (Auto) Baso # (Auto) Immature Gran # (Auto) Absolute Nucleated RBC Nucleated RBC % (auto) Platelet Estimate Anisocytosis Microcytosis Target Cells APTT PTT Ratio Sodium Potassium Chloride Carbon Dioxide Anion Gap BUN Creatinine Est Cr Clr Drug Dosing Est GFR ( Amer) Est GFR (Non-Af Amer) BUN/Creatinine Ratio Glucose POC Glucose Calcium Magnesium TSH 1.240 Medications Administered Current Inpatient Medications Amiodarone HCl (Amiodarone 200 Mg Tab) 200 mg PO BID PHIL Stop: 12/14/20 20:59 Bupropion HCl (Bupropion Sr 100 Mg Tabcr) 100 mg PO QAM PHIL Stop: 12/13/20 08:59 Last Admin: 11/14/20 08:51 Dose: 100 mg Documented by: Dextrose (Dextrose 50% 50 Ml Syringe) 25 - 50 ml IV UD PRN; Protocol PRN Reason: Hypoglycemia Protocol Stop: 12/13/20 11:14 Diclofenac Sodium (Diclofenac Sod 1% Gel 100 Gm Tube) 2 gm EXT BID PHIL Stop: 12/13/20 20:59 Last Admin: 11/14/20 08:52 Dose: 2 gm Documented by: Diltiazem HCl (Diltiazem Er 180 Mg Capcr) 180 mg PO QAM PHIL Stop: 12/13/20 08:59 Last Admin: 11/14/20 08:51 Dose: 180 mg Documented by: Duloxetine HCl (Duloxetine Hcl 30 Mg Cap) 30 mg PO QAM [facility] Stop: 12/13/20 10:29 Last Admin: 11/14/20 08:51 Dose: 30 mg Documented by: Furosemide (Furosemide 40 Mg Tab) 40 mg PO QAM [facility] Stop: 12/13/20 08:59 Last Admin: 11/14/20 08:50 Dose: 40 mg Documented by: Glucagon (Glucagon For Inj 1 Mg Vial) 1 mg IM UD PRN; Protocol PRN Reason: Hypoglycemia Protocol Stop: 12/13/20 11:14 Glucose (Glucose 40% Gel 15 Gm Tube) 15 - 30 gm PO UD PRN; Protocol PRN Reason: Hypoglycemia Protocol Stop: 12/13/20 11:14 Glucose (Glucose 10 Tabs/Tube) 4 - 8 tabs PO UD PRN; Protocol PRN Reason: Hypoglycemia Protocol Stop: 12/13/20 11:14 Heparin Sodium (Porcine) (Heparin Sod 5,000 Unit/0.5 Ml Vial) 5,000 units SQ Q8 PHIL Stop: 12/13/20 21:59 Last Admin: 11/14/20 06:10 Dose: 5,000 units Documented by: Potassium Chloride (K Bob / Wtr) 10 meq in 100 mls @ 100 mls/hr IV Q1H PHIL Stop: 11/14/20 10:59 Insulin Aspart (Insulin Aspart 100 Units/Ml 3 Ml Pen) 0 units SC ACHS PHIL Stop: 12/13/20 11:29 Last Admin: 11/14/20 08:49 Dose: 4 units Documented by: Isosorbide Mononitrate (Isosorbide Sutter Extended Rel 60 Mg Tabcr) 120 mg PO QPM PHIL Stop: 12/13/20 20:59 Last Admin: 11/13/20 19:37 Dose: 120 mg Documented by: Miscellaneous (Eplerenone~Order Awaiting Action) 1 ea N/A QS PHIL Stop: 12/13/20 07:59 Last Admin: 11/14/20 08:50 Dose: Not Given Documented by: Miscellaneous (Carbohydrates For Hypoglycemia ) 15 - 30 gm PO UD PRN PRN Reason: Hypoglycemia Treatment Stop: 12/13/20 11:14 Nitroglycerin (Nitroglycerin Sl 0.4 Mg/Tab Tab) 0.4 mg SL PRN PRN PRN Reason: Chest Pain Stop: 12/13/20 03:53 Pantoprazole Sodium (Pantoprazole 40 Mg Tab) 40 mg PO BID PHIL Stop: 12/13/20 08:59 Last Admin: 11/14/20 08:50 Dose: 40 mg Documented by: Potassium Chloride (Potassium Chloride Crtab 20 Meq Tabcr) 20 meq PO Q2H PHIL Stop: 11/14/20 15:01 Last Admin: 11/14/20 09:16 Dose: 20 meq Documented by: Rifaximin (Rifaximin 550 Mg Tablet) 550 mg PO TID PHIL Stop: 12/13/20 08:59 Last Admin: 11/14/20 08:50 Dose: 550 mg Documented by: Resident Activity Tracking Resident Involvement: Resident Care Provided Care Provided: Adult Hospital Medicine
--- NOTE | 2020-11-14 11:26 | Cardiology Progress Note ---
Date of Service November 14, 2020 Assessment & Plan (1) Symptomatic tachycardia: -atrial flutter with a rapid ventricular response at time of admission. -no evidence of ventricular tachycardia. -ventricular response now adequately controlled on oral amiodarone.. -would increase dose to 200 mg b.i.d. 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 -stable for hospital discharge. (2) Elevated troponin I level: -likely a supply demand mismatch. -has moderate left ventricular hypertrophy on echocardiogram. (3) CAD (coronary artery disease): -s/p CABG x3 in 1993. -redo procedure in March 2011. -continue conservative management. (4) Essential (primary) hypertension: -BP with borderline control. (5) Hypercholesteremia: -statin intolerant. -continue Zetia. Admission and Anticipated Discharge Date Admission Date: November 13, 2020 Subjective The patient is resting comfortably in bed without complaints of chest pain, dyspnea, or diaphoresis. He is anxious for hospital discharge. Physical Exam Physical Exam: In general this is an obese black male in no acute distress. HEENT exam is normal. Neck is supple with full carotid upstrokes. There are no carotid bruits. No jugular venous distension. There is no thyromegaly. Cardiovascular exam reveals a regular rhythm with a normal S1 and S2. Heart sounds are distant. A prominent S4 is noted. No obvious murmurs. Chest reveals a well-healed midline scar with some minor keloid formation distally. Lungs are clear without rales, rhonchi, or wheezes. Abdomen is obese without bruits. Extremities show intact radial artery pulses bilaterally. No pretibial edema. Results & Data ([facility]) Vital Signs (Past 12 Hours) Vital Signs Temp Pulse Resp BP Pulse Ox 11/14/20 08:18 36.7 C 67 20 154/82 H 96 11/14/20 04:31 37.0 C 66 19 146/78 H 94 11/14/20 00:02 36.8 C 67 19 167/83 H 98 Diagnostic Findings Echocardiogram notes low normal systolic function with ejection fraction 50-55%. There is moderate LVH. 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 PG Care Time/CCT Total # of Minutes Spent Total Time Spent with Patient: Total time spent is greater than 50% in coordination of care (as documented) at patient's floor/unit and/or counseling patient: Coding Level of Care Code 59557 Subseq Hosp Care Lvl 3 Diagnoses Symptomatic tachycardia R00.0 Elevated troponin I level R74.8 CAD (coronary artery disease) I25.10 Essential (primary) hypertension I10 Hypercholesteremia E78.00
[2020-11-14] MEDS ORDERED: LACTULOSE SYRUP 20 GM/30 ML UDC PO PRN (14:06)
[2020-11-14] MEDS ORDERED: IRON SUCROSE 100 MG in 0.9 % SODIUM CHLORIDE 100 ML IV ONE (14:30)
[2020-11-14] MEDS: lisinopril 20 MG TAB PO SCH (15:35)
[2020-11-14 17:10] LABS: BUN Creatinine Ratio 7.6 (10-20); Calcium 7.8 mg/dl (8.5-10.1); Creatinine Clr Calc Pharmacy 139.1 ml/min; Est GFR (African American) 111.1 ml/min; Est GFR (Non-African American) 95.9 ml/min; Potassium 3.5 mmol/L (3.5-5.1)
[2020-11-14] MEDS ORDERED: EZETIMIBE 10 MG TABLET PO SCH (21:00)
[2020-11-14] MEDS ORDERED: TAMSULOSIN HCL 0.4 MG CAP PO SCH (21:00)
[2020-11-14] MEDS: GABAPENTIN 300 MG CAP PO SCH (21:05)
[2020-11-14] MEDS: ISOSORBIDE MONO EXTENDED REL 60 MG TABCR PO SCH (21:06)
[2020-11-15] MEDS: HEPARIN SOD 5,000 UNIT/0.5 ML VIAL SQ SCH (05:50)
[2020-11-15 06:47] LABS: Nucleated RBC # (auto) 0.02 K/uL (0-0); Nucleated RBC % (auto) 0.7 %
[2020-11-15 07:11] LABS: BUN Creatinine Ratio 9.1 (10-20); Calcium 8.6 mg/dl (8.5-10.1); Est GFR (African American) 117.4 ml/min; Est GFR (Non-African American) 101.3 ml/min; Magnesium 1.8 mg/dl (1.8-2.4); Potassium 3.2 mmol/L (3.5-5.1)
[2020-11-15 07:29] LABS: Hematocrit (blood only) 32.8 % (42-52); Hemoglobin 10.5 g/dL (14.0-18.0); Mean Corpuscular Hemoglobin 21.6 pg (25-34); Mean Corpuscular Volume 67.5 fL (80-100); RDW Coefficient of Variation 22.2 % (11.5-14.5); RDW Standard Deviation 53.8 fL (36.4-46.3); Red Blood Count 4.86 M/uL (4.7-6.1); White Blood Count 3.23 K/uL (4.8-10.8)
[2020-11-15 07:31] LABS: Platelet Count 109 K/uL (130-400); Platelet Estimate Decreased (Normal)
[2020-11-15] MEDS: INSULIN ASPART 100 UNITS/ML 3 ML PEN SC SCH ×2 (08:21→12:04)
[2020-11-15] MEDS: buPROPion SR 100 MG TABCR PO SCH (08:22)
[2020-11-15] MEDS: AMIODARONE 200 MG TAB PO SCH (08:22)
[2020-11-15] MEDS: dilTIAZem ER 180 MG CAPCR PO SCH (08:23)
[2020-11-15] MEDS: DULoxetine HCL 30 MG CAP PO SCH (08:23)
[2020-11-15] MEDS: DICLOFENAC SOD 1% GEL 100 GM TUBE EXT SCH (08:23)
[2020-11-15] MEDS: FUROSEMIDE 40 MG TAB PO SCH (08:23)
[2020-11-15] MEDS: lisinopril 20 MG TAB PO SCH (08:24)
[2020-11-15] MEDS: GABAPENTIN 300 MG CAP PO SCH ×2 (08:24→14:30)
[2020-11-15] MEDS: rifAXIMin 550 MG TABLET PO SCH ×2 (08:25→14:31)
[2020-11-15] MEDS: PANTOprazole 40 MG TAB PO SCH (08:25)
[2020-11-15] MEDS: POTASSIUM CHLORIDE CRTAB 20 MEQ TABCR PO SCH ×4 (09:39→15:16)
--- NOTE | 2020-11-15 10:08 | Discharge Summary ---
Date of Service November 15, 2020 Admission HPI Per Admitting Provider Patient is a medically complex 70 year old male with PMHx ALDO, CHF, Atrial Fibrillation, Cauda Equina syndrome, HTN, CAD s/p triple bypass x2, Cirrhosis, Depression, HTN, that presented by EMS for chief complaint of chest discomfort, diaphoresis, and lightheadedness. Upon arrival to the ED patient was found to have an episode of wide-complex tachycardia that was self limited with deep breathing. This occurred 2-3 more times in the ED with associated hypotension, dizziness, and diaphoresis as the patient was sat upright. The patient was bolused with amiodarone and subsequently started on an amiodarone gtt. The ED edna antony discussed the case with the store protection specialist kosher inspector and service order clerk Dr. Rizo who recommended adding on a beta mary as well as with the positional changes he felt the patient's tachycardia may be catecholamine induced. Upon discussion with the patient he noted that while his chest discomfort had resolved, he was now having some abdominal discomfort on his L side that ran from his upper L abdomen towards his L shoulder. He states that his dizziness has resolved and is currently not having any nausea. He notes that he was sitting and watching TV with his when his symptoms first appeared and that he was not in a stressful situation nor was he exerting himself. Patient does have a very extensive cardiac history with history of 4 cardiac caths without stenting in addition to having triple bypass surgery in 1994 and repeat in 2010. Patient notes he has never been told he has a ventricular arrhythmia. Med Hx: ALDO, CHF, Atrial Fibrillation, Cauda Equina syndrome, HTN, CAD s/p triple bypass x2, Cirrhosis, Depression, HTN Surg Hx: Cardiac cath x4, CABG x3 (x2), R knee meniscal repair x4, Back surgery x3 Admission Exam Per Admitting Provider Constitutional: + ill appearing, + obese and cooperative Patient somewhat ashen appearing at this time Eyes: PERRL, conjunctivae normal, anicteric sclerae ENMT: external ear and nose normal, oropharynx normal Respiratory: normal respiratory effort, lungs clear to auscultation no cough Auscultation: no crackles, no rales, no rhonchi and no wheezes Clear to anterior and lateral lung mora, unable to assess posterior at this time Cardiovascular: Rate/Rhythm: regular rhythm and + tachycardic Heart Sounds: normal S1 and normal S2; no gallop, no murmur and no cardiac rub Extremities: + edema (+1 ) Gastrointestinal (Abdomen): normal bowel sounds, soft, nontender, no hepatosplenomegaly Percussion/Palpation: abdomen soft; abdomen nontender, no guarding and abdomen not rigid Musculoskeletal: Head/Neck/Chest: normocephalic and head atraumatic Skin: no rashes, warm and dry Neurologic: moves all extremities Psychiatric: Orientation: alert and oriented x 3 Eye Contact: + fair eye contact Affect: + anxious affect Principal Diagnosis Atrial flutter with rapid ventricular rate Discharge Exam Physical Exam: Patient is resting comfortably on exam. No acute distress. Constitutional: WD/WN, vitals as above Respiratory: normal respiratory effort, lungs clear to auscultation Cardiovascular: RRR, no murmur, no edema Extremities: + edema; no calf tenderness Gastrointestinal (Abdomen): normal bowel sounds, soft, nontender, no hepatosplenomegaly Skin: no rashes, warm and dry Psychiatric: A+Ox3, euthymic affect Discharge Data Allergies Allergy/AdvReac Type Severity Reaction Status Date / Time simvastatin AdvReac Intermediate GI UPSET- Verified 11/13/20 01:33 OK WITH LIPITOR pioglitazone AdvReac Mild GI UPSETS Verified 11/13/20 01:33 spironolactone AdvReac Mild NIPPLES Verified 11/13/20 01:33 HURT Consultations 11/13/20 02:06 ED Decision to Admit Stat 11/13/20 03:54 Consult Language Specialist Routine Hospital Course (1) Atrial flutter: Mr. Herring is a 70-year-old male with a history of ALDO, CHF, Atrial Fibrillation, Cauda Equina syndrome, CAD s/p triple bypass x2, Cirrhosis, Depression, and HTN who presented via EMS for chief complaint of chest discomfort, diaphoresis, and lightheadedness. Upon arrival to the ED, patient was found to have an episode of tachycardia and hypotension. Atrial flutter with RVR: Likely cause of symptoms on presentation, BP has been slightly elevated throughout admission but controlled heart rate has been 67. Patient was initially bolused with amiodarone and Lopressor 5 mg IV in the ED followed by amiodarone GTT. TTE demonstrated normal left ventricular systolic function, EF of 60 to 65%, no significant change from prior echo. Patient was transitioned to p.o. amiodarone and is tolerating the medication well. On discharge patient is to continue 200 mg p.o. amiodarone twice daily has been anticoagulated on heparin restarting warfarin on discharge. Will need to follow-up with primary care provider for INR and dose adjustment -Resume warfarin today, no need for bridge moderate risk for thromboembolism, [id number] 4, has-bled score 4. -Resume warfarin, follow-up INR Tuesday -Follow-up with PCP this week. Microcytic Anemia: Likely due to alpha thalassemia; however, transferrin saturation low in September. Repleted with 100 mg of Fe IV. -Recommend follow-up with primary care physician and further work-up as an outpatient Hypokalemia: Has been chronically hypokalemic throughout admission, potassium 3.2 on the day of discharge, repleted 80 mg every 2 hours. Goal potassium greater than four, mag greater than two. We will DC the patient on 20 of Klor-Con daily to obtain BMP within 1 week of discharge and follow-up with PCP Elevated Troponin: - Trop 0.06 --> 0.072. Evaluated by cardiology this suspect secondary to demand ischemia HTN: Resumed home meds on discharge Depression: - Continued Buspar and Cymbalta. Hyperlipidemia: - Continued ezetimibe per home regimen. BPH: - Continued tamsulosin and dutasteride per home regimen. Vertebral Fractures: - Continued Diclofenac gel per home regimen. - Restart Gabapentin. - Resumed baclofen. CHF: -stayed euvolemic -Continue Lasix 40mg PO QAM. Liver Cirrhosis - Continued Xifaxin - Restart lactulose. Fall: - Prior to admission, patient states that he 'collapsed to the ground' while ambulating to the ambulance. No traumatic mechanism. - No pain noted. - PT/OT evaluation placed - Home with Home health for PT/OT. Chronic back pain - discussed weight management - consider referral to Dr. Percy Goncalves as outpatient. Gallo Benz MD PGY 2, [facility] This chart was completed utilizing [employer] voice recognition software. Grammatical errors, random word insertions, pronoun errors, and in complete sentences are an occasional consequence of the system. Any questions or biju rns about the content, text, or information contained within the body of this dictation should be addressed directly to the physician for clarification. (2) HTN (hypertension): (3) shelter (current) use of anticoagulants: Total Time Total Time Spent Total Time Spent (In Minutes): 42 Discharge Plan Discharge Items Patient Disposition: Home - Self-Care Reason For Visit: CHEST PAIN, WIDE COMPLEX TACHYCARDIA Discharge Diagnosis: Atrial flutter with RVR Activity: Resume your previous activity Non-emergency contact: Primary Care Provider and Electrical Estimator Call non-emergency contact if: you have any medication questions, your pain is not controlled and your temperature is above 101.5 Follow-up/Referrals: Wayne Florez, [Primary Care Provider] - Diet: Carb Consistent or DM2 and Heart Healthy Ambulatory Orders: Basic Metabolic Panel (Routine) Timeframe: 1 Week Location: Determined by Patient Ordered By: Gallo Benz Prothrombin Time INR (Routine) Timeframe: 3 Days Location: Determined by Patient Ordered By: Gallo Benz Addtl Attending Provider Instructions: Care instructions: You were admitted to [facility] for treatment of symptomatic tachycardia diagnosis atrial fibrillation with rapid ventricular response. While hospitalized you were provided with intravenous fluids and started on a medication called amiodarone. Your symptomatic heartbeat improved significantly and you were transitioned to oral amiodarone. This will be continued as an outpatient basis. You are to take 200 mg of amiodarone 2 times per day. Otherwise you are to resume the medications you were taking prior to presenting to the hospital. Given that your potassium has been persistently low throughout the hospitalization we will be starting you on 20 mEq of Klor-Con potassium per day. Please take this medication as directed. Please resume your warfarin therapy and have your INR checked this coming Tuesday. Please follow-up with your primary care physician for any changes to your warfarin regimen. A discharge summary will be sent to your primary care physician to ensure continuity of care. Please bring this discharge summary with you to your next office appointment so that your provider can review it at that time. Follow-up appointments: - Keep all your follow-up appointments as already scheduled. If you cannot make an appointment, notify your provider. - Please call to request a follow-up appointment with your primary care physician within one week of discharge. Please let us know if you are unable to obtain an appointment Follow-up labs: - Please go to a lab nearest you and obtain the requested lab work. Please have this completed at least 3 hours before your doctor's appointment (or the day before your appointment if possible). Medications: - Your medication list has been reviewed and reconciled upon discharge to ensure accuracy and continuity of care. - You are provided with a list of all your current medications at this time. Please review this list closely and make note of any changes. - Please take all of your medications exactly as prescribed. - Tell your primary care provider if you cannot afford your medications. - Call your primary care provider if you are having any side effects or any other problems. - Call your primary care provider before taking any over the counter medications or supplements, including herbals and vitamins, because some of these may interact with your current medications and/or make your symptoms worse. Symptoms: Please call your primary care provider for symptoms including, but not limited to: fevers (temperatures greater than 100.4), chills, intractable nausea or vomiting, diarrhea, rash, shortness of breath, bleeding, pain, or if you experience any worsening of the symptoms that brought you to the hospital. For EMERGENCY and VERY SERIOUS health-related issues, such as chest pain, shortness of breath, or sudden onset of the symptoms that brought you to the hospital, you may need to call 911 or go directly to the Emergency Room It has been our privilege to take care of you during your hospital stay. And Above All Else Feel Better! Best Wishes, Gallo eBnz MD PGY2 Resident, Family & Community Medicine [facility] Residency at [facility] - [address], [address] : [place] [address] Pending Studies at Discharge: No Stand-Alone Forms: My [facility], Smoking Cessation Medications and DC Order Prescriptions: New amiodarone 200 mg Tablet 200 mg PO BID 30 Days Qty: 60 RF: 0 potassium chloride [Klor-Con M20] 20 mEq tablet,ER particles/crystals 20 meq PO DAILY 30 Days Qty: 30 RF: 0 amiodarone 200 mg tablet 200 mg PO BID 7 Days Qty: 14 RF: 0 potassium chloride [Klor-Con M20] 20 mEq tablet,ER particles/crystals 20 meq PO DAILY Qty: 7 RF: 0 Continued baclofen 20 mg tablet 20 mg PO TID PRN (Reason: Pain) Qty: 90 RF: 1 lactulose 10 gram/15 mL solution 15 ml PO TID PRN (Reason: constipation) Qty: 1892 RF: 1 Xifaxan 550 mg tablet 550 mg PO TID Qty: 270 RF: 1 propranolol 10 mg tablet 10 mg PO TID Qty: 270 RF: 1 bupropion HCl [Wellbutrin SR] 100 mg tablet sustained-release 12 hr 100 mg PO QAM Qty: 90 RF: 1 furosemide 40 mg tablet 40 mg PO QAM Qty: 90 RF: 1 Lantus Solostar U-100 Insulin 100 unit/mL (3 mL) insulin pen 12 unit subcut HS 90 Days Qty: 45 RF: 1 diltiazem HCl 180 mg capsule,extended release 24 hr 180 mg PO QAM Qty: 90 RF: 3 doxycycline monohydrate 100 mg capsule 100 mg PO BIDM Qty: 180 RF: 10 warfarin 5 mg tablet 5 mg PO .COMPLEX Qty: 90 RF: 5 gabapentin 300 mg capsule 300 mg PO TID Qty: 270 RF: 3 ezetimibe 10 mg tablet 10 mg PO QPM 90 Days Qty: 90 RF: 1 lisinopril 20 mg tablet 20 mg PO DAILY Qty: 90 RF: 2 omega-3 acid ethyl esters 1 gram capsule 1 cap PO BID Qty: 180 RF: 1 potassium chloride 20 mEq tablet extended release 20 meq PO BID Qty: 180 RF: 1 eplerenone 25 mg tablet 25 mg PO QAM 90 Days Qty: 90 RF: 1 isosorbide mononitrate 120 mg tablet extended release 24 hr 120 mg PO QPM Qty: 90 RF: 1 (DME) blood glucose control, normal [OneTouch Ultra Control] Solution See Rx Instructions .ROUTE .MEDSUPPLY Qty: 1 RF: 0 (DME) OneTouch Ultra Blue Test Strip Strip See Dose Instructions .ROUTE .MEDSUPPLY Qty: 100 RF: 4 (DME) lancets [OneTouch Delica Lancets] 33 gauge misc See Dose Instructions .ROUTE .MEDSUPPLY Qty: 400 RF: 1 nitroglycerin 0.6 mg tablet, sublingual 0.6 mg Sublingual DIRECTED PRN (Reason: Chest Pain) Qty: 20 RF: 1 tamsulosin 0.4 mg capsule 0.4 mg PO HS 90 Days Qty: 90 RF: 3 (DME) CPAP Supplies Misc See Rx Instructions .ROUTE .MEDSUPPLY Qty: 1 RF: 0 (DME) CPAP Machine Misc See Rx Instructions .ROUTE .MEDSUPPLY Qty: 1 RF: 0 diclofenac sodium 1 % gel 4 g TOP QID Qty: 100 RF: 1 pantoprazole 40 mg tablet,delayed release (DR/EC) 40 mg PO BID Qty: 180 RF: 1 duloxetine 60 mg capsule,delayed release(DR/EC) 60 mg PO QAM Qty: 90 RF: 1 (DME) CPAP Supplies Misc See Rx Instructions .ROUTE .MEDSUPPLY Qty: 1 RF: 0 multivitamin tablet 1 tab PO QAM RF: 0 folic acid 1 mg tablet 1 mg PO QDD RF: 0 magnesium oxide 400 mg magnesium capsule 400 mg PO QPM RF: 0 warfarin 7.5 mg tablet 7.5 mg PO HS RF: 0 dutasteride [Avodart] 0.5 mg capsule 0.5 mg PO HS RF: 0 Discharge Orders: Discharge Order (Routine); Ordered 11/15/20 Ordered By: Gallo Benz Admission Data Admit Date/Time: 11/13/20 03:16 Attending Provider: Gema Valiente Admit Provider: Siddhartha Shaver Primary Care Provider: Wayne Florez Other Providers: Ileana Benz ; Too Mcgowan ; [facility] Other Interventions: Discharge Summary Assessment (RN) Last Done: 11/15/20 11:24 Supervising Physician Co-Signing Physician Notes Resident Physician Supervision Note: I independently interviewed and examined the patient and verified the barton history and physical, reviewed labs and image studies and agree with resident Dr. Gallo Benz findings and care plan. Resident Activity Tracking Resident Involvement: Resident Care Provided Care Provided: Adult Hospital Medicine
[2020-11-15] MEDS ORDERED: WARFARIN SOD 7.5 MG TAB PO SCH (11:30)
[2020-11-21] MEDS ORDERED: WARFARIN SOD 5 MG TAB PO SCH (16:00)
== END 2020-11-15 17:00 | disposition home or self-care (01) | DRG 309 ==
LOC: ED 00:58 → SUATTDRO 03:16 → 1E 03:16 → 2S 10:28

== ENCOUNTER 2021-03-12 07:59 | Observation (INO) ==
[2021-03-12] MEDS ORDERED: OPTIRAY 320 125ml IV ONE (08:27)
--- NOTE | 2021-03-12 08:34 | Emergency Department Note ---
Impression & Plan Acute confusion, Expressive aphasia ED Provider Note NAME: RAMY CHARLES AGE: 70 SEX: M : 1950 ARRIVES VIA: Ambulance INFORMANT: Patient ED PROVIDER(S): Tj Serrano DO CHIEF COMPLAINT: Confusion HPI: Patient is a 70-year-old male with a past medical history of diabetes, hypertensin, hyperlipidemia, A. fib anticoagulated, sepsis who presents the ER for confusion. went away for 24 hours and came back home and found him confused. He denies any headache or change in vision. No chest pain or shortness of breath. He is having trouble talking. No belly pain nausea vomiting or diarrhea. 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 ROS: See above HPI for pertinent positives & negatives. A total of 10 systems re viewed and were otherwise negative. PAST MEDICAL HISTORY:See Below PAST SURGICAL HISTORY:See Below FAMILY HISTORY:See Below SOCIAL HISTORY:See Below HOME MEDICATIONS:See Below ALLERGIES:See Below VITALS:See Below PHYSICAL EXAMINATION: GENERAL: Sitting up in bed, alert but confused EYE EXAM: normal conjunctiva. PERRL and EOM's grossly intact. OROPHARYNX: no exudate, no erythema, lips, buccal mucosa, and tongue normal and mucous membranes are moist NECK: supple, no nuchal rigidity, no adenopathy, non-tender LUNGS: Clear to auscultation. Normal chest wall mechanics HEART: no murmurs, S1 normal and S2 normal ABDOMEN: abdomen soft, non-tender, normo-active bowel sounds, no masses, no rebound or guarding. UPPER EXTREMITIES: upper extremities are grossly normal. LOWER EXTREMITIES: No pitting edema. NEURO EXAM: Awake alert oriented to person not place or year, cranial nerves II- XII grossly intact, normal speech, no gross weakness of arms, no gross weakness of legs. MEDICAL DECISION MAKING: Patient is a 70-year-old male who presents ER for the above-stated complaint. IV was established blood work was obtained. Labs show mild leukopenia 4000. No significant anemia. INR was therapeutic at 2.1. BMP with slightly elevated chloride. LFTs and bilirubin was slightly elevated. Ammonia mildly elevated at 75. Troponin was checked by 0.036. TSH unremarkable. UA was clean. Tox was positive for marijuana. Covid negative. CT angios of the head and neck were negative. Patient was given IV fluids updated bedside. Ultrasound was fairly unremarkable. Discussed with hospitalist for further evaluation. Triage Nursing notes reviewed. Limited review of prior medical records performed Vital Signs: reviewed and remarkable for no significant abnormalities Differential diagnosis: Differential diagnoses includes but is not limited to toxic, metabolic, infectious, traumatic, cardiac, neurologic, hematologic, psychiatric and inf lammatory etiologies. ER treatment provided: See below Diagnostics interpreted by me: ECG: Sinus rhythm rate 91 Normal axis No PVCs Right bundle branch block QTC 602 ST wave changes in this anterior leads Cardiac Monitoring: An order was placed for continuous cardiac monitoring. The monitor shows a rate of 73 with sinus rhythm. Laboratory studies: As stated above and show below. Imaging studies: CT angios of the head neck were negative ultrasound was unremarkable of the right upper quadrant Consultation(s): Discussed with Dr. Dirk English for further evaluation Procedures: none Past Med/Surg History Medical History Anemia Anxiety and depression CAD (coronary artery disease) Cauda equina compression Chronic systolic CHF (congestive heart failure) Cirrhosis of liver not due to alcohol Cyst of kidney, acquired Depression Enlarged prostate Esophageal varices Essential tremor GERD (gastroesophageal reflux disease) Gout Hepatic hemangioma HTN (hypertension) Hx of myocardial infarction Hyperlipidemia Hypertension Internal hemorrhoids Liver failure care home (current) use of anticoagulants Mass of petrous temporal bone Medical marijuana use Morbid obesity Opioid dependence Osteomyelitis of lumbar spine PAF (paroxysmal atrial fibrillation) Pancytopenia Pigmented nevus Pulmonary nodule Seborrheic keratosis Sleep apnea Spinal stenosis of lumbar region (05/15/13) Thyroid nodule Tubular adenoma of colon Type 2 diabetes mellitus Vitamin D deficiency Wide-complex tachycardia Surgical History History of back surgery History of cardiac cath History of coronary artery bypass graft x 3 History of esophagogastroduodenoscopy (EGD) (~05/29/19) History of heart surgery History of right knee surgery Hx of colonoscopy Hx of vasectomy Family History Mother Stroke Father Stroke Aunt Cancer Other No family history of adverse response to anesthesia No significant family history Denies family history of Colon cancer Ovarian cancer Prostate cancer Myocardial infarction Breast cancer Social History Smoking Status: Former smoker Tobacco Type: Cigarettes Age Quit Using Tobacco: 60; Second Hand Exposure: No; Hx Alcohol Use: No Hx Substance Use: Yes Last Used Substance: Days (ago) Last Used Substance Other:: presciption for medicinal marijuana Substance Use Type Other:: medical marijuana Preferred Language: Kinyarwanda Communication Ability: Effective Visual Impairment: No Limitations Hearing Ability: Normal 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 Beliefs That Will Affect Care: None marital status: Current Living Situation: Spouse current occupational status: retired Feels Safe at Home: Yes Childhood Exposure to Second-Hand Smoke: Yes Dental Care, Regularly: Yes Physical Activity Frequency: 3-4 Times per Week Seatbelt Use: always Assistive Devices: Walker Allergies Allergies Allergy/AdvReac Type Severity Reaction Status Date / Time simvastatin AdvReac Intermediate GI UPSET- Verified 03/12/21 08:55 OK WITH LIPITOR pioglitazone AdvReac Mild GI UPSETS Verified 03/12/21 08:55 spironolactone AdvReac Mild NIPPLES Verified 03/12/21 08:55 HURT Home Meds Home Medications Medication Instructions Recorded Confirmed multivitamin 1 tab PO QAM 01/23/19 03/12/21 amiodarone 200 mg tablet (Pacerone) 200 mg PO BID 03/12/21 03/12/21 lisinopril 20 mg tablet 20 mg PO QAM 03/12/21 03/12/21 potassium chloride 20 mEq 20 meq PO BID 03/12/21 03/12/21 tablet,extended release(part/cryst) warfarin 5 mg tablet 5 mg PO WK 03/12/21 03/12/21 warfarin 7.5 mg tablet 7.5 mg PO [id number] 03/12/21 03/12/21 Previous Rx's Medication Instructions Recorded CPAP Supplies #1 ea 04/26/19 CPAP Supplies #1 ea 10/25/19 CPAP Machine #1 ea 02/08/20 diltiazem HCl 180 mg capsule,24 180 mg PO QAM #90 cap 08/08/20 hr,extended release doxycycline monohydrate 100 mg 100 mg PO BIDM #180 cap 08/08/20 capsule nitroglycerin 0.6 mg sublingual 0.6 mg SUBLINGUAL DIRECTED PRN 08/20/20 tablet #20 tab gabapentin 300 mg capsule 300 mg PO TID #270 cap 09/24/20 omega-3 acid ethyl esters 1 gram 1 cap PO BID #180 cap 10/16/20 capsule eplerenone 25 mg tablet 25 mg PO QAM 90 Days #90 tab 10/29/20 blood sugar diagnostic (OneTouch #100 ea 11/11/20 Ultra Blue Test Strip) lancets 33 gauge (OneTouch Delica #400 ea 11/11/20 Lancets) blood-glucose meter (OneTouch #1 ea 11/18/20 Ultra2 Meter) insulin glargine 100 unit/mL (3 8 unit SUBCUT HS 90 Days #7.2 ml 11/27/20 mL) subcutaneous pen (Lantus Solostar U-100 Insulin) bupropion HCl 100 mg tablet,12 hr 100 mg PO QAM #90 ea 01/07/21 sustained-release (Wellbutrin SR) duloxetine 60 mg capsule,delayed 60 mg PO QAM #90 cap 01/07/21 release dutasteride 0.5 mg capsule 0.5 mg PO HS #90 cap 01/07/21 (Avodart) ezetimibe 10 mg tablet 10 mg PO QPM 90 Days #90 tab 01/07/21 pantoprazole 40 mg tablet,delayed 40 mg PO BID #180 tab 01/07/21 release rifaximin 550 mg tablet (Xifaxan) 550 mg PO TID #270 tab 01/07/21 tamsulosin 0.4 mg capsule 0.4 mg PO HS 90 Days #90 cap 02/05/21 diclofenac sodium 1 % topical gel 4 g TOP QID #100 gm 02/17/21 isosorbide mononitrate 120 mg 120 mg PO QPM #90 tab 02/17/21 tablet,extended release 24 hr lactulose 10 gram/15 mL oral 15 ml PO TID PRN #3784 ml 02/23/21 solution propranolol 10 mg tablet 10 mg PO TID #270 tab 02/23/21 Results & Data (ED) Vital Signs Vital Signs - 24 hr 03/12/21 07:44 03/12/21 08:38 03/12/21 08:41 Temperature 36.8 C Temperature Source Oral Pulse Rate 91 H 86 Pulse Rate from SpO2 Sensor 86 Respiratory Rate 20 20 Respiratory Effort / Characteristics Non-Labored Spontaneous Respiratory Depth Normal Blood Pressure 162/111 H 164/130 H Blood Pressure Mean 128 141 Blood Pressure Position Lying Pulse Oximetry 96 99 Oxygen Delivery Method Room Air Sepsis Recent Fever Within 48 Hours No Sepsis New/Unexplained Change in Mental Status Yes Sepsis Action Taken by Nursing No Action Required 03/12/21 08:50 03/12/21 09:11 03/12/21 09:20 Temperature Temperature Source Pulse Rate 94 H 90 Pulse Rate from SpO2 Sensor 90 Respiratory Rate 15 23 Respiratory Effort / Characteristics Respiratory Depth Blood Pressure 170/104 H Blood Pressure Mean 126 Blood Pressure Position Pulse Oximetry 97 Oxygen Delivery Method Sepsis Recent Fever Within 48 Hours Sepsis New/Unexplained Change in Mental Status Sepsis Action Taken by Nursing 03/12/21 09:30 03/12/21 09:40 03/12/21 09:50 Temperature Temperature Source Pulse Rate 89 88 89 Pulse Rate from SpO2 Sensor 90 89 89 Respiratory Rate 14 19 19 Respiratory Effort / Characteristics Respiratory Depth Blood Pressure Blood Pressure Mean Blood Pressure Position Pulse Oximetry 97 100 100 Oxygen Delivery Method Sepsis Recent Fever Within 48 Hours Sepsis New/Unexplained Change in Mental Status Sepsis Action Taken by Nursing 03/12/21 10:50 03/12/21 11:00 03/12/21 11:10 Temperature Temperature Source Pulse Rate Pulse Rate from SpO2 Sensor Respiratory Rate 17 20 Respiratory Effort / Characteristics Respiratory Depth Blood Pressure 187/103 H Blood Pressure Mean 131 Blood Pressure Position Pulse Oximetry Oxygen Delivery Method Sepsis Recent Fever Within 48 Hours Sepsis New/Unexplained Change in Mental Status Sepsis Action Taken by Nursing 03/12/21 11:20 03/12/21 11:30 03/12/21 11:40 Temperature Temperature Source Pulse Rate Pulse Rate from SpO2 Sensor Respiratory Rate 15 22 Respiratory Effort / Characteristics Respiratory Depth Blood Pressure 181/116 H Blood Pressure Mean 137 Blood Pressure Position Pulse Oximetry Oxygen Delivery Method Sepsis Recent Fever Within 48 Hours Sepsis New/Unexplained Change in Mental Status Sepsis Action Taken by Nursing 03/12/21 12:33 03/12/21 13:00 Temperature Temperature Source Pulse Rate 92 H 69 Pulse Rate from SpO2 Sensor 92 H 74 Respiratory Rate 14 17 Respiratory Effort / Characteristics Respiratory Depth Blood Pressure 170/103 H Blood Pressure Mean 125 Blood Pressure Position Pulse Oximetry 98 98 Oxygen Delivery Method Sepsis Recent Fever Within 48 Hours Sepsis New/Unexplained Change in Mental Status Sepsis Action Taken by Nursing Laboratory Data Result diagrams: 03/12/21 08:25 03/12/21 08:25 Lab Results 03/12/21 03/12/21 03/12/21 Range/Units 08:25 08:25 08:25 WBC 4.09 L (4.8-10.8) K/uL RBC 5.64 (4.7-6.1) M/uL Hgb 12.3 L (14.0-18.0) g/dL Hct 37.8 L (42-52) % MCV 67.0 L (80-100) fL MCH 21.8 L (25-34) pg MCHC 32.0 (32-36) g/dL RDW Std Deviation 53.3 H (36.4-46.3) fL RDW Coeff of Jt 22.2 H (11.5-14.5) % Plt Count 119 L (130-400) K/uL Neutrophils % (Manual) 56.8 % Lymphocytes % (Manual) 21.6 % Reactive Lymphs % (Man) 16.4 % Monocytes % (Manual) 2.6 % Eosinophils % (Manual) 2.6 % Neutrophils # (Manual) 2.32 (1.4-6.5) K/uL Total Absolute Neuts 2.32 (1.4-6.5) K/uL Lymphocytes # (Manual) 0.88 L (1.2-3.4) K/uL Reactive Lymphs # 0.67 K/uL Total Abs Lymphocytes 1.55 (1.2-3.4) K/uL Monocytes # (Manual) 0.11 (0.11-0.59) K/uL Eosinophils # (Manual) 0.11 (0-0.5) K/uL Platelet Estimate Decreased L (Normal) Giant Platelets 2+ Polychromasia 1+ Hypochromasia Present Anisocytosis Present Microcytosis Present Target Cells 1+ PT 20.3 H (9.0-12.0) Seconds INR 2.1 H (0.9-1.1) APTT 35.8 H (21.0-31.0) Seconds PTT Ratio 1.4 Sodium 144 (136-145) mmol/L Potassium 4.0 (3.5-5.1) mmol/L Chloride 109 H (98-107) mmol/L Carbon Dioxide 29 (21-32) mmol/L Anion Gap 6.0 (3-11) BUN 7 (7-18) mg/dl Creatinine 0.83 (0.6-1.4) mg/dl Est Cr Clr Drug Dosing Not Reportable Est GFR ( Amer) 104.8 ml/min Est GFR (Non-Af Amer) 90.4 ml/min BUN/Creatinine Ratio 8.7 L (10-20) Glucose 82 (70-99) mg/dl Calcium 8.5 (8.5-10.1) mg/dl Magnesium 1.8 (1.8-2.4) mg/dl Total Bilirubin 1.1 H (0.2-1) mg/dl AST 144 H (15-37) U/L ALT 102 H (12-78) U/L Alkaline Phosphatase 289 H (45-117) U/L Ammonia (11-32) umol/L Troponin I 0.036 (0-0.045) ng/ml Total Protein 7.8 (6.4-8.2) gm/dl Albumin 2.6 L (3.4-5.0) gm/dl Globulin 5.2 H (2.5-4.0) gm/dl Albumin/Globulin Ratio 0.5 L (0.9-2) TSH (0.300-4.500) uIu/ml Urine Color Urine Appearance (Clear) Urine pH (4.5-7.5) Ur Specific Dun[place] (1.000-1.030) Urine Protein (Negative) Urine Glucose (UA) (Negative) Urine Ketones (Negative) Urine Blood (Negative) Urine Nitrite (Negative) Urine Bilirubin (Negative) Urine Urobilinogen (Negative) Ur Leukocyte Esterase (Negative) Urine WBC (Auto) (0-5) /hpf Urine RBC (Auto) (0-4) /hpf U Hyaline Cast (Auto) (0-5) /lpf U Epithel Cells (Auto) (0-5) /lpf Urine Bacteria (Auto) (Negative) Urine Opiates Screen (Neg) Ur Methadone, Qual (Neg) Urine Barbiturates (Neg) Ur Phencyclidine (PCP) (Neg) U Amphetamin/Meth Scrn (Neg) MDMA (Ecstasy) Screen (Neg) U Benzodiazepines Scrn (Neg) Ur Cocaine Metabolite (Neg) U Marijuana (THC) Screen (Neg) COVID-19 Eval Order SARS-CoV-2 (PCR) (Negative) 03/12/21 03/12/21 03/12/21 Range/Units 08:49 08:49 09:04 WBC (4.8-10.8) K/uL RBC (4.7-6.1) M/uL Hgb (14.0-18.0) g/dL Hct (42-52) % MCV (80-100) fL MCH (25-34) pg MCHC (32-36) g/dL RDW Std Deviation (36.4-46.3) fL RDW Coeff of Jt (11.5-14.5) % Plt Count (130-400) K/uL Neutrophils % (Manual) % Lymphocytes % (Manual) % Reactive Lymphs % (Man) % Monocytes % (Manual) % Eosinophils % (Manual) % Neutrophils # (Manual) (1.4-6.5) K/uL Total Absolute Neuts (1.4-6.5) K/uL Lymphocytes # (Manual) (1.2-3.4) K/uL Reactive Lymphs # K/uL Total Abs Lymphocytes (1.2-3.4) K/uL Monocytes # (Manual) (0.11-0.59) K/uL Eosinophils # (Manual) (0-0.5) K/uL Platelet Estimate (Normal) Giant Platelets Polychromasia Hypochromasia Anisocytosis Microcytosis Target Cells PT (9.0-12.0) Seconds INR (0.9-1.1) APTT (21.0-31.0) Seconds PTT Ratio Sodium (136-145) mmol/L Potassium (3.5-5.1) mmol/L Chloride (98-107) mmol/L Carbon Dioxide (21-32) mmol/L Anion Gap (3-11) BUN (7-18) mg/dl Creatinine (0.6-1.4) mg/dl Est Cr Clr Drug Dosing Est GFR ( Amer) ml/min Est GFR (Non-Af Amer) ml/min BUN/Creatinine Ratio (10-20) Glucose (70-99) mg/dl Calcium (8.5-10.1) mg/dl Magnesium (1.8-2.4) mg/dl Total Bilirubin (0.2-1) mg/dl AST (15-37) U/L ALT (12-78) U/L Alkaline Phosphatase (45-117) U/L Ammonia (11-32) umol/L Troponin I (0-0.045) ng/ml Total Protein (6.4-8.2) gm/dl Albumin (3.4-5.0) gm/dl Globulin (2.5-4.0) gm/dl Albumin/Globulin Ratio (0.9-2) TSH (0.300-4.500) uIu/ml Urine Color Yellow Urine Appearance Clear (Clear) Urine pH 8.5 H (4.5-7.5) Ur Specific [place] 1.010 (1.000-1.030) Urine Protein Trace H (Negative) Urine Glucose (UA) Negative (Negative) Urine Ketones Negative (Negative) Urine Blood Trace H (Negative) Urine Nitrite Negative (Negative) Urine Bilirubin Negative (Negative) Urine Urobilinogen Negative (Negative) Ur Leukocyte Esterase Negative (Negative) Urine WBC (Auto) 0 (0-5) /hpf Urine RBC (Auto) 0-4 (0-4) /hpf U Hyaline Cast (Auto) 0 (0-5) /lpf U Epithel Cells (Auto) 5-10 H (0-5) /lpf Urine Bacteria (Auto) Negative (Negative) Urine Opiates Screen Neg (Neg) Ur Methadone, Qual Neg (Neg) Urine Barbiturates Neg (Neg) Ur Phencyclidine (PCP) Neg (Neg) U Amphetamin/Meth Scrn Neg (Neg) MDMA (Ecstasy) Screen Neg (Neg) U Benzodiazepines Scrn Neg (Neg) Ur Cocaine Metabolite Neg (Neg) U Marijuana (THC) Screen Pos H (Neg) COVID-19 Eval Order Covid19 at [facility] SARS-CoV-2 (PCR) (Negative) 03/12/21 03/12/21 03/12/21 Range/Units 09:04 11:27 11:27 WBC (4.8-10.8) K/uL RBC (4.7-6.1) M/uL Hgb (14.0-18.0) g/dL Hct (42-52) % MCV (80-100) fL MCH (25-34) pg MCHC (32-36) g/dL RDW Std Deviation (36.4-46.3) fL RDW Coeff of Jt (11.5-14.5) % Plt Count (130-400) K/uL Neutrophils % (Manual) % Lymphocytes % (Manual) % Reactive Lymphs % (Man) % Monocytes % (Manual) % Eosinophils % (Manual) % Neutrophils # (Manual) (1.4-6.5) K/uL Total Absolute Neuts (1.4-6.5) K/uL Lymphocytes # (Manual) (1.2-3.4) K/uL Reactive Lymphs # K/uL Total Abs Lymphocytes (1.2-3.4) K/uL Monocytes # (Manual) (0.11-0.59) K/uL Eosinophils # (Manual) (0-0.5) K/uL Platelet Estimate (Normal) Giant Platelets Polychromasia Hypochromasia Anisocytosis Microcytosis Target Cells PT (9.0-12.0) Seconds INR (0.9-1.1) APTT (21.0-31.0) Seconds PTT Ratio Sodium (136-145) mmol/L Potassium (3.5-5.1) mmol/L Chloride (98-107) mmol/L Carbon Dioxide (21-32) mmol/L Anion Gap (3-11) BUN (7-18) mg/dl Creatinine (0.6-1.4) mg/dl Est Cr Clr Drug Dosing Est GFR ( Amer) ml/min Est GFR (Non-Af Amer) ml/min BUN/Creatinine Ratio (10-20) Glucose (70-99) mg/dl Calcium (8.5-10.1) mg/dl Magnesium (1.8-2.4) mg/dl Total Bilirubin (0.2-1) mg/dl AST (15-37) U/L ALT (12-78) U/L Alkaline Phosphatase (45-117) U/L Ammonia 75.0 H (11-32) umol/L Troponin I (0-0.045) ng/ml Total Protein (6.4-8.2) gm/dl Albumin (3.4-5.0) gm/dl Globulin (2.5-4.0) gm/dl Albumin/Globulin Ratio (0.9-2) TSH 3.220 (0.300-4.500) uIu/ml Urine Color Urine Appearance (Clear) Urine pH (4.5-7.5) Ur Specific [place] (1.000-1.030) Urine Protein (Negative) Urine Glucose (UA) (Negative) Urine Ketones (Negative) Urine Blood (Negative) Urine Nitrite (Negative) Urine Bilirubin (Negative) Urine Urobilinogen (Negative) Ur Leukocyte Esterase (Negative) Urine WBC (Auto) (0-5) /hpf Urine RBC (Auto) (0-4) /hpf U Hyaline Cast (Auto) (0-5) /lpf U Epithel Cells (Auto) (0-5) /lpf Urine Bacteria (Auto) (Negative) Urine Opiates Screen (Neg) Ur Methadone, Qual (Neg) Urine Barbiturates (Neg) Ur Phencyclidine (PCP) (Neg) U Amphetamin/Meth Scrn (Neg) MDMA (Ecstasy) Screen (Neg) U Benzodiazepines Scrn (Neg) Ur Cocaine Metabolite (Neg) U Marijuana (THC) Screen (Neg) COVID-19 Eval Order SARS-CoV-2 (PCR) NEGATIVE (Negative) Administered Medications Discontinued Medications Ioversol (Optiray 320 125ml) 120 ml IV ONCE ONE Stop: 03/12/21 08:28 Last Admin: 03/12/21 08:27 Dose: 120 ml Documented by: [id number] Nitroglycerin (Nitroglycerin 2% Ointment 30gm Tube) 0.5 inch EXT NOW STA Stop: 03/12/21 11:51 Last Admin: 03/12/21 12:15 Dose: 0.5 inch Documented by: [id number] Imaging Data Radiologist's Impression: Head CT 03/12/21 08:17 CT angio head w con, CT angio neck with con, CT head/brain wo con CLINICAL HISTORY: 70 years-old Male with Stroke Like Symptoms. Acute strokelike symptoms COMPARISON STUDY: Head CT 08/12/2020, brain MRI 04/24/2020 TECHNIQUE: Unenhanced axial CT scan of the brain is performed. Subsequently, following the IV administration of 120 cc of Optiray, CT angiogram of the head and neck was performed from the aortic arch to the skull apex. Images are reviewed in the axial, sagittal, and coronal planes. 3-D MIPS images are created and assessed. IV contrast was administered without complication. All measurements were obtained according to NASCET criteria. A dose lowering technique was utilized adhering to the principles of ALARA. CT DOSE: 3283.94 mGycm (accession [id number]), 1183.66 mGycm (accession [id number]) FINDINGS: CT BRAIN: Motion degraded exam. There is no acute intracranial hemorrhage, midline shift, hydrocephalus, intracranial mass, territorial ischemia or abnormal extra-axial c ollections. No abnormal intra-axial or extra-axial enhancement. Age-related involutional changes. Cerebral vascular calcifications. Mastoid air cells and middle ear cavities are clear. No calvarial fracture. Paranasal sinuses are clear. CTA OF THE HEAD AND NECK: Streak artifact from sternotomy wires. Three-vessel morphology of the thoracic aortic arch. Patency of the innominate and imaged subclavian arteries. Study is motion degraded. Medial course of the patent common carotid arteries. Atherosclerosis of the carotid bulbs, left greater than right results in less than 50% stenosis bilaterally. Additional chronic plaque of the cavernous and supraclinoid segments of the internal carotid arteries without high-grade stenosis. The visualized middle and anterior cerebral artery branches are patent, however are suboptimally visualized secondary to motion artifact. Dominant right vertebral artery. The left vertebral artery appears to be dev elopmentally diminutive. The visualized vertebral arteries appear patent. Diminutive basilar artery with origin of the posterior cerebral arteries. The basilar and posterior cerebral arteries appear patent. Cerebral venous sinuses appear patent. There is no abnormal intracranial enhancement identified. No pneumothorax. Unremarkable soft tissues. Degenerative changes of the cervical spine. IMPRESSION: 1. Motion degraded exam without acute intracranial abnormality identified. 2. Unremarkable CTA of the head and neck. ACT 112: Negative or not required by law. The above report was generated using voice recognition software. It may contain grammatical, syntax or spelling errors. Electronically signed by: Jairon Clark M.D. 03/12/2021 8:48 AM Head CTA 03/12/21 08:17 CT angio head w con, CT angio neck with con, CT head/brain wo con CLINICAL HISTORY: 70 years-old Male with Stroke Like Symptoms. Acute strokelike symptoms COMPARISON STUDY: Head CT 08/12/2020, brain MRI 04/24/2020 TECHNIQUE: Unenhanced axial CT scan of the brain is performed. Subsequently, following the IV administration of 120 cc of Optiray, CT angiogram of the head and neck was performed from the aortic arch to the skull apex. Images are revi ewed in the axial, sagittal, and coronal planes. 3-D MIPS images are created and assessed. IV contrast was administered without complication. All measurements were obtained according to NASCET criteria. A dose lowering technique was utilized adhering to the principles of ALARA. CT DOSE: 3283.94 mGycm (accession [id number]), 1183.66 mGycm (accession [id number]) FINDINGS: CT BRAIN: Motion degraded exam. There is no acute intracranial hemorrhage, midline shift, hydrocephalus, intracranial mass, territorial ischemia or abnormal extra-axial collections. No abnormal intra-axial or extra-axial enhancement. Age-related involutional changes. Cerebral vascular calcifications. Mastoid air cells and middle ear cavities are clear. No calvarial fracture. Paranasal sinuses are clear. CTA OF THE HEAD AND NECK: Streak artifact from sternotomy wires. Three-vessel morphology of the thoracic aortic arch. Patency of the innominate and imaged subclavian arteries. Study is motion degraded. Medial course of the patent common carotid arteries. Atherosclerosis of the carotid bulbs, left greater than right results in less than 50% stenosis bilaterally. Additional chronic plaque of the cavernous and supraclinoid segments of the internal carotid arteries without high-grade stenosis. The visualized middle and anterior cerebral artery branches are patent, however are suboptimally visualized secondary to motion artifact. Dominant right vertebral artery. The left vertebral artery appears to be developmentally diminutive. The visualized vertebral arteries appear patent. Diminutive basilar artery with origin of the posterior cerebral arteries. The basilar and posterior cerebral arteries appear patent. Cerebral venous sinuses appear patent. There is no abnormal intracranial enhancement identified. No pneumothorax. Unremarkable soft tissues. Degenerative changes of the cervical spine. IMPRESSION: 1. Motion degraded exam without acute intracranial abnormality identified. 2. Unremarkable CTA of the head and neck. ACT 112: Negative or not required by law. The above report was generated using voice recognition software. It may contain grammatical, syntax or spelling errors. Electronically signed by: Jairon Clark M.D. 03/12/2021 8:48 AM Neck CTA 03/12/21 08:17 CT angio head w con, CT angio neck with con, CT head/brain wo con CLINICAL HISTORY: 70 years-old Male with Stroke Like Symptoms. Acute strokelike symptoms COMPARISON STUDY: Head CT 08/12/2020, brain MRI 04/24/2020 TECHNIQUE: Unenhanced axial CT scan of the brain is performed. Subsequently, following the IV administration of 120 cc of Optiray, CT angiogram of the head and neck was performed from the aortic arch to the skull apex. Images are reviewed in the axial, sagittal, and coronal planes. 3-D MIPS images are created and assessed. IV contrast was administered without complication. All measurements were obtained according to NASCET criteria. A dose lowering technique was utilized adhering to the principles of ALARA. CT DOSE: 3283.94 mGycm (accession [id number]), 1183.66 mGycm (accession [id number]) FINDINGS: CT BRAIN: Motion degraded exam. There is no acute intracranial hemorrhage, midline shift, hydrocephalus, intracranial mass, territorial ischemia or abnormal extra-axial collections. No abnormal intra-axial or extra-axial enhancement. Age-related involutional changes. Cerebral vascular calcifications. Mastoid air cells and middle ear cavities are clear. No calvarial fracture. Paranasal sinuses are clear. CTA OF THE HEAD AND NECK: Streak artifact from sternotomy wires. Three-vessel morphology of the thoracic aortic arch. Patency of the innominate and imaged subclavian arteries. Study is motion degraded. Medial course of the patent common carotid arteries. Atherosclerosis of the carotid bulbs, left greater than right results in less than 50% stenosis bilaterally. Additional chronic plaque of the cavernous and supraclinoid segments of the internal carotid arteries without high-grade stenosis. The visualized middle and anterior cerebral artery branches are patent, however are suboptimally visualized secondary to motion artifact. Carrie nant right vertebral artery. The left vertebral artery appears to be developmentally diminutive. The visualized vertebral arteries appear patent. Diminutive basilar artery with origin of the posterior cerebral arteries. The basilar and posterior cerebral arteries appear patent. Cerebral venous sinuses appear patent. There is no abnormal intracranial enhancement identified. No pneumothorax. Unremarkable soft tissues. Degenerative changes of the cervical spine. IMPRESSION: 1. Motion degraded exam without acute intracranial abnormality identified. 2. Unremarkable CTA of the head and neck. ACT 112: Negative or not required by law. The above report was generated using voice recognition software. It may contain grammatical, syntax or spelling errors. Electronically signed by: Jairon Clark M.D. 03/12/2021 8:48 AM Gallbladder Ultrasound 03/12/21 09:28 ULTRASOUND RIGHT UPPER QUADRANT ABDOMEN CLINICAL HISTORY: Elevated bilirubin and hepatic transaminases. COMPARISON STUDY: Abdominal CT dated 07/03/2020. TECHNIQUE: Real-time, grayscale, and color flow sonography of the right upper quadrant of the abdomen was performed. Images are reviewed in the transverse and longitudinal planes. The examination is degraded by large body habitus. FINDINGS: Liver: The liver is cirrhotic in morphology and heterogeneous in echotexture. Echotexture is increased suggesting steatosis. There is nodularity of the hepatic surface contour. A hypoechoic focus near the hepatic dome and measures 2.3 x 1.7 x 2.4 cm. There is no intrahepatic biliary ductal dilatation. The main portal vein is patent. Gallbladder: The gallbladder is gross normal as visualized but not well assessed. The large calcified gallstones seen by CT on 07/03/2020 were not well visualized. There is no gallbladder wall thickening or pericholecystic fluid. A sonographic Garcia's sign is reportedly absent. The common bile duct measures up to 0.5 cm in diameter. Pancreas: Not visualized due to overlying bowel gas. Right kidney: Survey images of the right kidney demonstrate normal size and echotexture. There is no hydronephrosis. Right renal cysts measure up to 5.2 cm. Ascites: None. IMPRESSION: 1. The examination is significantly degraded by large body habitus. 2. The liver is cirrhotic in morphology and shows evidence of steatosis. 3. There is no sonographic evidence of acute cholecystitis. The gallstones seen by CT were not apparent on today's ultrasound. 4. A 2.4 cm lesion in the hepatic dome is unchanged and likely represents a hemangioma when correlated with prior studies. 5. Nonvisualization of the pancreas. ACT 112: Negative or not required by law. Electronically signed by: Ronal Brady M.D. 03/12/2021 10:49 AM Brain MRI 03/12/21 10:23 MRI OF THE BRAIN WITHOUT CONTRAST CLINICAL HISTORY: expressive aphasia ?stroke COMPARISON STUDY: April 24, 2020 FINDINGS: Sagittal T1, axial diffusion images were acquired. This exam is significantly limited due to motion artifact. Sagittal T2, coronal T2 FLAIR, axial T1 and GRE sequence was not performed. Study is incomplete because patient removed coil during exam. No definite intra or extra-axial mass lesions are visualized, Axial diffusion-weighted images reveal no evidence of acute or subacute infarction. There is no evidence of ventricular dilatation. Proton density T2-weighted and FLAIR sequences was not performed. Assessment for flow voids is incomplete due to motion artifact. There is questionable fluid signal within anatomical region of the right maxillary sinus which might represent sinusitis. IMPRESSION: No evidence of restricted diffusion to suggest acute ischemia/infarct. Possible fluid within the right maxillary sinus which might represent sinusitis in appropriate clinical settings. No definite large intracranial mass lesions or midline shift. Significantly limited exam due to motion artifact and uncooperative patient as detailed above. ACT 112: Negative or not required by law. The above report was generated using voice recognition software. It may contain grammatical, syntax or spelling errors. Electronically signed by: Loida Gibbons DO 03/12/2021 1:06 PM Chest X-Ray 03/12/21 10:25 SINGLE VIEW CHEST CLINICAL HISTORY: Change in mental status. FINDINGS: 3 AP, portable, upright chest radiographs are compared to study dated 11/13/2020 and correlated with chest CT dated 07/04/2017. The examination is degraded by portable technique and patient rotation. The patient is status post midline sternotomy. The heart is enlarged noting atherosclerotic calcification of the thoracic aorta. The pulmonary vasculature is noncongested. Scarring/atelectasis is noted at the lung bases. No airspace consolidation, large pleural effusion, or pneumothorax is identified. The skeletal structures are osteopenic. The bony thorax is grossly intact. IMPRESSION: Cardiomegaly with no acute cardiopulmonary abnormality. ACT 112: Negative or not required by law. Electronically signed by: Ronal Brady M.D. 03/12/2021 11:13 AM Discharge Plan Visit Data Chief Complaint: Altered Mental Status Stated Complaint: AMS ED Provider: Tj Serrano Discharge Problem: Acute confusion, Expressive aphasia Forms Stand Alone Forms: My [facility] [employer] Prescriptions Prescriptions: No Action diltiazem HCl 180 mg capsule,extended release 24 hr 180 mg PO QAM Qty: 90 RF: 3 doxycycline monohydrate 100 mg capsule 100 mg PO BIDM Qty: 180 RF: 10 gabapentin 300 mg capsule 300 mg PO TID Qty: 270 RF: 3 omega-3 acid ethyl esters 1 gram capsule 1 cap PO BID Qty: 180 RF: 1 eplerenone 25 mg tablet 25 mg PO QAM 90 Days Qty: 90 RF: 1 (DME) OneTouch Ultra Blue Test Strip Strip See Dose Instructions .ROUTE .MEDSUPPLY Qty: 100 RF: 4 (DME) lancets [OneTouch Delica Lancets] 33 gauge misc See Dose Instructions .ROUTE .MEDSUPPLY Qty: 400 RF: 1 (DME) blood-glucose meter [OneTouch Ultra2 Meter] Misc See Rx Instructions .ROUTE .MEDSUPPLY Qty: 1 RF: 0 duloxetine 60 mg capsule,delayed release(DR/EC) 60 mg PO QAM Qty: 90 RF: 1 bupropion HCl [Wellbutrin SR] 100 mg tablet sustained-release 12 hr 100 mg PO QAM Qty: 90 RF: 1 dutasteride [Avodart] 0.5 mg capsule 0.5 mg PO HS Qty: 90 RF: 1 ezetimibe 10 mg tablet 10 mg PO QPM 90 Days Qty: 90 RF: 1 pantoprazole 40 mg tablet,delayed release (DR/EC) 40 mg PO BID Qty: 180 RF: 1 Xifaxan 550 mg tablet 550 mg PO TID Qty: 270 RF: 1 tamsulosin 0.4 mg capsule 0.4 mg PO HS 90 Days Qty: 90 RF: 3 diclofenac sodium 1 % gel 4 g TOP QID Qty: 100 RF: 1 isosorbide mononitrate 120 mg tablet extended release 24 hr 120 mg PO QPM Qty: 90 RF: 1 lactulose 10 gram/15 mL solution 15 ml PO TID PRN (Reason: constipation) Qty: 3784 RF: 1 propranolol 10 mg tablet 10 mg PO TID Qty: 270 RF: 1 nitroglycerin 0.6 mg tablet, sublingual 0.6 mg Sublingual DIRECTED PRN (Reason: Chest Pain) Qty: 20 RF: 1 Lantus Solostar U-100 Insulin 100 unit/mL (3 mL) insulin pen 8 unit subcut HS 90 Days Qty: 7.2 RF: 1 (DME) CPAP Supplies Misc See Rx Instructions .ROUTE .MEDSUPPLY Qty: 1 RF: 0 (DME) CPAP Machine Misc See Rx Instructions .ROUTE .MEDSUPPLY Qty: 1 RF: 0 (DME) CPAP Supplies Misc See Rx Instructions .ROUTE .MEDSUPPLY Qty: 1 RF: 0 multivitamin tablet 1 tab PO QAM RF: 0 amiodarone [Pacerone] 200 mg tablet 200 mg PO BID RF: 0 potassium chloride 20 mEq tablet,ER particles/crystals 20 meq PO BID RF: 0 warfarin 7.5 mg tablet 7.5 mg PO 6XWK RF: 0 lisinopril 20 mg tablet 20 mg PO QAM RF: 0 warfarin 5 mg tablet 5 mg PO WK RF: 0 Referrals Referrals: Wayne Florez, [Primary Care Provider] -
--- NOTE | 2021-03-12 08:49 | CT Scan Report ---
CT angio head w con, CT angio neck with con, CT head/brain wo con CLINICAL HISTORY: 70 years-old Male with Stroke Like Symptoms. Acute strokelike symptoms COMPARISON STUDY: Head CT 08/12/2020, brain MRI 04/24/2020 TECHNIQUE: Unenhanced axial CT scan of the brain is performed. Subsequently, following the IV adminis tration of 120 cc of Optiray, CT angiogram of the head and neck was performed from the aortic arch to the skull apex. Images are reviewed in the axial, sagittal, and coronal planes. 3-D MIPS images are created and assessed. IV contrast was administered without complication. All measurements were obtain ed according to NASCET criteria. A dose lowering technique was utilized adhering to the principles of ALARA. CT DOSE: 3283.94 mGycm (accession [id number]), 1183.66 mGycm (accession [id number]) FINDINGS: CT BRAIN: Motion degraded exam. There is no acute intracranial hemorrhage, midline shift, hydrocephalus, intrac ranial mass, territorial ischemia or abnormal extra-axial collections. No abnormal intra-axial or ext ra-axial enhancement. Age-related involutional changes. Cerebral vascular calcifications. Mastoid air cells and middle ear cavities are clear. No calvarial fracture. Paranasal sinuses are clear. CTA OF THE HEAD AND NECK: Streak artifact from sternotomy wires. Three-vessel morphology of the thoracic aortic arch. Patency o f the innominate and imaged subclavian arteries. Study is motion degraded. Medial course of the paten t common carotid arteries. Atherosclerosis of the carotid bulbs, left greater than right results in l ess than 50% stenosis bilaterally. Additional chronic plaque of the cavernous and supraclinoid segmen ts of the internal carotid arteries without high-grade stenosis. The visualized middle and anterior c erebral artery branches are patent, however are suboptimally visualized secondary to motion artifact. Dominant right vertebral artery. The left vertebral artery appears to be developmentally diminutive. The visualized vertebral arteries appear patent. Diminutive basilar artery with origin of the posterior cerebral arteries. The basilar and posterior cerebral arteries appear patent. Cerebral veno us sinuses appear patent. There is no abnormal intracranial enhancement identified. No pneumothorax. Unremarkable soft tissues. Degenerative changes of the cervical spine. IMPRESSION: 1. Motion degraded exam without acute intracranial abnormality identified. 2. Unremarkable CTA of the head and neck. ACT 112: Negative or not required by law. The above report was generated using voice recognition software. It may contain grammatical, syntax o r spelling errors. Electronically signed by: Jairon Clark M.D. 03/12/2021 8:48 AM
[2021-03-12 08:59] LABS: INR 2.1 (0.9-1.1); Partial Thromboplastin Ratio 1.4; Partial Thromboplastin Time 35.8 Seconds (21.0-31.0); Prothrombin Time 20.3 Seconds (9.0-12.0)
[2021-03-12 09:14] LABS: Alanine Aminotransferase 102 U/L (12-78); Albumin Globulin Ratio 0.5 (0.9-2); Albumin Level 2.6 gm/dl (3.4-5.0); Alkaline Phosphatase 289 U/L (45-117); Aspartate Aminotransferase 144 U/L (15-37); BUN Creatinine Ratio 8.7 (10-20); Bilirubin,Total 1.1 mg/dl (0.2-1); Blood Urea Nitrogen 7 mg/dl (7-18); Calcium 8.5 mg/dl (8.5-10.1); Carbon Dioxide 29 mmol/L (21-32); Chloride 109 mmol/L (98-107); Est GFR (African American) 104.8 ml/min; Est GFR (Non-African American) 90.4 ml/min; Globulin 5.2 gm/dl (2.5-4.0); Glucose 82 mg/dl (70-99); Magnesium 1.8 mg/dl (1.8-2.4); Sodium 144 mmol/L (136-145); Total Protein 7.8 gm/dl (6.4-8.2); Troponin I 0.036 ng/ml (0-0.045)
[2021-03-12 09:16] LABS: Platelet Count 119 K/uL (130-400)
[2021-03-12 09:18] LABS: ALC (manual) 1.55 K/uL (1.2-3.4); ANC (manual) 2.32 K/uL (1.4-6.5); Anisocytosis Present; Eosinophils # (manual) 0.11 K/uL (0-0.5); Eosinophils % (manual) 2.6 %; Giant Platelets 2+; Hematocrit (blood only) 37.8 % (42-52); Hemoglobin 12.3 g/dL (14.0-18.0); Hypochromasia Present; Lymphocytes # (manual) 0.88 K/uL (1.2-3.4); Lymphocytes % (manual) 21.6 %; Mean Corpuscular Hemoglobin 21.8 pg (25-34); Microcytosis Present; Monocytes # (manual) 0.11 K/uL (0.11-0.59); Monocytes % (manual) 2.6 %; Neutrophils # (manual) 2.32 K/uL (1.4-6.5); Neutrophils % (manual) 56.8 %; Platelet Estimate Decreased (Normal); Polychromasia 1+; RDW Coefficient of Variation 22.2 % (11.5-14.5); RDW Standard Deviation 53.3 fL (36.4-46.3); Reactive Lymphocytes # (manual) 0.67 K/uL; Reactive Lymphocytes % (manual) 16.4 %; Red Blood Count 5.64 M/uL (4.7-6.1); Target Cells 1+; White Blood Count 4.09 K/uL (4.8-10.8)
[2021-03-12 09:41] LABS: Appearance Urine Clear (Clear); Bacteria Urine Automated Negative (Negative); Bilirubin Urine Negative (Negative); Blood Urine Trace (Negative); Cast Urine Automated 0 /lpf (0-5); Color Urine Yellow; Glucose Urine UA Negative (Negative); Ketones Urine Negative (Negative); Leukocyte Esterase Urine Negative (Negative); Nitrite Urine Negative (Negative); RBC Urine Automated 0-4 /hpf (0-4); Urobilinogen Urine Negative (Negative); WBC Urine Automated 0 /hpf (0-5); pH Urine 8.5 (4.5-7.5)
[2021-03-12 09:43] LABS: Protein Urine Trace (Negative)
[2021-03-12 10:24] LABS: Amphetamines+Metham, Urine Neg (Neg); Barbiturates, Urine Neg (Neg); Benzodiazepine, Urine Neg (Neg); Cocaine, Urine Neg (Neg); MDMA (Ecstacy), Urine Neg (Neg); Methadone, Urine Neg (Neg); Opiate, Urine Neg (Neg); Phencyclidine, Urine Neg (Neg)
--- NOTE | 2021-03-12 10:28 | History & Physical Report ---
Date of Service March 12, 2021 Assessment & Plan (1) Expressive aphasia: Plan: Loss of ability to find the right words out of proportion to generalized confusion. Concerning for CVA although out of timeline for tPA. CT head and angiograms unremarkable MRI Brain pending Discussed with Dr Espinosa and will hold of antiplatelets until result of MRI. Start ASA 81mg PO if no contraindication and MRI confirms stroke Stroke order set. PT/OT Failed dysphagia screen - discussed with SLT who will reassess and difficult to treat (2) Altered mental status: Plan: Ammonia level pending CXR - no acute change US gallbladder - nothing of concern UA - no infection (3) Diabetes: Plan: HbA1C 8.2 in August, repeat with AM labs Novolog sliding scale only given current glucose levels Consider adding back his lantus as glucose improves (4) HTN (hypertension): Plan: Nitro paste now Will re-introduce his usual propranolol, ISMN, diltiazem, lisinopril and amiodarone as BP allows (5) Paroxysmal atrial flutter: Plan: Continue amiodarone 200mg BID Will continue warfarin as long as he passess SLT assessment (6) Anemia: Plan: Pancytopenia ?due to liver cirrhosis. Some mention of alpha thalassemia on prior notes. Appears to be at baseline. (7) Esophageal varices: Plan: Will restart on propranolol as able. Monitor Hgb with AM labs. (8) Obstructive sleep apnea of adult: Plan: CPAP HS 10cm H2O (9) CAD (coronary artery disease): Plan: CABG in 1993 and 2010 On no antiplatelets Continue metoprolol, lisinopril, ISMN as BP allows. On no statin Plan: VTE Prophylaxis - warfarin Diet - NPO pending SLT assessment Disposition - observation status to med/tele Admission and Anticipated Discharge Date Admission Date: March 12, 2021 History of Present Illness Chief Complaint: Altered mental state Primary Care Provider: DO Umberto Jacobsjennifer Herring is a 70 year old medically complex male who presents to the ER with altered mental status and expressive dysphasia. Yesterday his was gone for a lot of the morning and evening and when she came back for dinner she was noticing differences in how he was communicating and he had not taken any of his medications and he wasn't able to test himself for BSG so didn't get any insul in. He also hadn't eaten any of the food she had prepared for him. He appeared generally more confused but mainly expressing himself. Having more word salad, each sentence was formed fine but nonsensical. They were having car troubles so unable to get to the ER yesterday so came today. He has also been calling out for his mother who when he was young. No hallucinations. Hend-eye co-ordination alos a problem. He was hospitalized here in November for new onset atrial flutter In the ER there is concern for a stroke given his expressive dysphasia. CT head and angiograms did not show any significant pathology. He was referred to medicine for admission and ongoing management for altered mental state. Allergies Allergy/AdvReac Type Severity Reaction Status Date / Time simvastatin AdvReac Intermediate GI UPSET- Verified 03/12/21 08:55 OK WITH LIPITOR pioglitazone AdvReac Mild GI UPSETS Verified 03/12/21 08:55 spironolactone AdvReac Mild NIPPLES Verified 03/12/21 08:55 HURT Home Medications Medication Instructions Recorded Confirmed Type multivitamin 1 tab PO QAM 01/23/19 03/12/21 History CPAP Supplies #1 ea 04/26/19 01/28/21 Rx CPAP Supplies #1 ea 10/25/19 01/28/21 Rx CPAP Machine #1 ea 02/08/20 01/28/21 Rx diltiazem HCl 180 mg capsule,24 180 mg PO QAM #90 cap 08/08/20 03/12/21 Rx hr,extended release doxycycline monohydrate 100 mg 100 mg PO BIDM #180 cap 08/08/20 03/12/21 Rx capsule nitroglycerin 0.6 mg sublingual 0.6 mg SUBLINGUAL DIRECTED PRN 08/20/20 03/12/21 Rx tablet #20 tab gabapentin 300 mg capsule 300 mg PO TID #270 cap 09/24/20 03/12/21 Rx omega-3 acid ethyl esters 1 gram 1 cap PO BID #180 cap 10/16/20 03/12/21 Rx capsule eplerenone 25 mg tablet 25 mg PO QAM 90 Days #90 tab 10/29/20 03/12/21 Rx blood sugar diagnostic (OneTouch #100 ea 11/11/20 01/28/21 Rx Ultra Blue Test Strip) lancets 33 gauge (OneTouch Delica #400 ea 11/11/20 01/28/21 Rx Lancets) blood-glucose meter (OneTouch #1 ea 11/18/20 01/28/21 Rx Ultra2 Meter) insulin glargine 100 unit/mL (3 8 unit SUBCUT HS 90 Days #7.2 ml 11/27/20 03/12/21 Rx mL) subcutaneous pen (Lantus Solostar U-100 Insulin) bupropion HCl 100 mg tablet,12 hr 100 mg PO QAM #90 ea 01/07/21 03/12/21 Rx sustained-release (Wellbutrin SR) duloxetine 60 mg capsule,delayed 60 mg PO QAM #90 cap 01/07/21 03/12/21 Rx release dutasteride 0.5 mg capsule 0.5 mg PO HS #90 cap 01/07/21 03/12/21 Rx (Avodart) ezetimibe 10 mg tablet 10 mg PO QPM 90 Days #90 tab 01/07/21 03/12/21 Rx pantoprazole 40 mg tablet,delayed 40 mg PO BID #180 tab 01/07/21 03/12/21 Rx release rifaximin 550 mg tablet (Xifaxan) 550 mg PO TID #270 tab 01/07/21 03/12/21 Rx tamsulosin 0.4 mg capsule 0.4 mg PO HS 90 Days #90 cap 02/05/21 03/12/21 Rx diclofenac sodium 1 % topical gel 4 g TOP QID #100 gm 02/17/21 03/12/21 Rx isosorbide mononitrate 120 mg 120 mg PO QPM #90 tab 02/17/21 03/12/21 Rx tablet,extended release 24 hr lactulose 10 gram/15 mL oral 15 ml PO TID PRN #3784 ml 02/23/21 03/12/21 Rx solution propranolol 10 mg tablet 10 mg PO TID #270 tab 02/23/21 03/12/21 Rx amiodarone 200 mg tablet (Pacerone) 200 mg PO BID 03/12/21 03/12/21 History lisinopril 20 mg tablet 20 mg PO QAM 03/12/21 03/12/21 History potassium chloride 20 mEq 20 meq PO BID 03/12/21 03/12/21 History tablet,extended release(part/cryst) warfarin 5 mg tablet 5 mg PO WK 03/12/21 03/12/21 History warfarin 7.5 mg tablet 7.5 mg PO [id number] 03/12/21 03/12/21 History Past Med/Surg History Medical History Anemia Anxiety and depression CAD (coronary artery disease) Cauda equina compression Chronic systolic CHF (congestive heart failure) Cirrhosis of liver not due to alcohol Cyst of kidney, acquired Depression Enlarged prostate Esophageal varices Essential tremor GERD (gastroesophageal reflux disease) Gout Hepatic hemangioma HTN (hypertension) Hx of myocardial infarction Hyperlipidemia Hypertension Internal hemorrhoids 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 Mass of petrous temporal bone Medical marijuana use Morbid obesity Opioid dependence Osteomyelitis of lumbar spine PAF (paroxysmal atrial fibrillation) Pancytopenia Pigmented nevus Pulmonary nodule Seborrheic keratosis Sleep apnea Spinal stenosis of lumbar region (05/15/13) Thyroid nodule Tubular adenoma of colon Type 2 diabetes mellitus Vitamin D deficiency Wide-complex tachycardia Surgical History History of back surgery History of cardiac cath History of coronary artery bypass graft x 3 History of esophagogastroduodenoscopy (EGD) (~05/29/19) History of heart surgery History of right knee surgery Hx of colonoscopy Hx of vasectomy Family History Mother Stroke Father Stroke Aunt Cancer Other No family history of adverse response to anesthesia No significant family history Denies family history of Colon cancer Ovarian cancer Prostate cancer Myocardial infarction Breast cancer Social History Smoking Status: Former smoker Tobacco Type: Cigarettes Age Quit Using Tobacco: 60; Second Hand Exposure: No; Hx Alcohol Use: Yes Alcohol type: beer and wine Alcohol Intake Frequency: Monthly or Less Hx Substance Use: Yes Last Used Substance: Unknown Last Used Substance Other:: presciption for medicinal marijuana Substance Use Type Other:: medical marijuana Preferred Language: Peruvian Communication Ability: Effective Visual Impairment: No Limitations Hearing Ability: Normal House Mover Required: No Beliefs That Will Affect Care: None marital status: Current Living Situation: Spouse current occupational status: retired Other Information That Helps Us Care for You: No Feels Safe at Home: Yes Safety Concerns: Feels Safe At This Time Childhood Exposure to Second-Hand Smoke: Yes Dental Care, Regularly: Yes Physical Activity Frequency: 3-4 Times per Week Seatbelt Use: always Assistive Devices: Cane and Walker Review of Systems Review of Systems: All systems reviewed & are unremarkable except as noted in HPI & below Physical Exam Constitutional: WD/WN, vitals as above Eyes: PERRL and EOM intact bilaterally (difficulty follow this command) ENMT: external ear and nose normal, oropharynx normal Cardiovascular: Rate/Rhythm: regular rate and regular rhythm Heart Sounds: no murmur Extremities: + pedal edema (trace b/l) Gastrointestinal (Abdomen): normal bowel sounds, soft, nontender, no hepatosplenomegaly Inspection/Auscultation: + abdomen distended (obese) and normal bowel sounds Musculoskeletal: no cyanosis or clubbing, extremities motor strength 5/5 Skin: no rashes, warm and dry Neurologic: moves all extremities, awake and + confused; no focal motor deficits (no lateralizing deficit) Motor/Sensory: + asterixis (bilaeral hands); no pronator drift Cranial Nerves: PERRL, normal accommodation, EOM intact bilaterally (dificulty ollow his command however, difts back to center from rightwad gaz), normal facial strength, able to elevate shoulders bilaterally, no nystagmus and symmetric palate elevation; + tongue not midline (deviates to right) Coordination: + abnormal [id number] test (slow but equal b/l) Slow to answer disorientation questions. Year - "2019", Month "2019, slow talking answering the wrong questions. Having trouble fining he right words. Location - [facility]...Rashid Juarez.... Person - he got his 's name first time. Psychiatric: Orientation: alert, oriented to person and oriented to place; + not oriented to time Results & Data Results & Data ([facility]) Vital Signs (Past 12 Hours) Vital Signs Temp Pulse Resp BP Pulse Ox 03/12/21 09:50 89 19 100 03/12/21 09:40 88 19 100 03/12/21 09:30 89 14 97 03/12/21 09:20 90 23 97 03/12/21 09:11 94 H 15 03/12/21 08:50 170/104 H 03/12/21 08:41 86 20 99 03/12/21 08:38 164/130 H 03/12/21 07:44 36.8 C 91 H 20 162/111 H [address] angio head w con, CT angio neck with con, CT head/brain wo con CLINICAL HISTORY: 70 years-old Male with Stroke Like Symptoms. Acute strokelike symptoms COMPARISON STUDY: Head CT 08/12/2020, brain MRI 04/24/2020 TECHNIQUE: Unenhanced axial CT scan of the brain is performed. Subsequently, following the IV administration of 120 cc of Optiray, CT angiogram of the head and neck was performed from the aortic arch to the skull apex. Images are rev iewed in the axial, sagittal, and coronal planes. 3-D MIPS images are created and assessed. IV contrast was administered without complication. All measurements were obtained according to NASCET criteria. A dose lowering technique was utilized adhering to the principles of ALARA. CT DOSE: 3283.94 mGycm (accession [id number]), 1183.66 mGycm (accession [id number]) FINDINGS: CT BRAIN: Motion degraded exam. There is no acute intracranial hemorrhage, midline shift, hydrocephalus, intracranial mass, territorial ischemia or abnormal extra-axial collections. No abnormal intra-axial or extra-axial enhancement. Age-related involutional changes. Cerebral vascular calcifications. Mastoid air cells and middle ear cavities are clear. No calvarial fracture. Paranasal sinuses are clear. CTA OF THE HEAD AND NECK: Streak artifact from sternotomy wires. Three-vessel morphology of the thoracic aortic arch. Patency of the innominate and imaged subclavian arteries. Study is motion degraded. Medial course of the patent common carotid arteries. Atherosclerosis of the carotid bulbs, left greater than right results in less than 50% stenosis bilaterally. Additional chronic plaque of the cavernous and s upraclinoid segments of the internal carotid arteries without high-grade stenosis. The visualized middle and anterior cerebral artery branches are patent, however are suboptimally visualized secondary to motion artifact. Dominant right vertebral artery. The left vertebral artery appears to be developmentally diminutive. The visualized vertebral arteries appear patent. Diminutive basilar artery with origin of the posterior cerebral arteries. The basilar and posterior cerebral arteries appear patent. Cerebral venous sinuses appear patent. There is no abnormal intracranial enhancement identified. No pneumothorax. Unremarkable soft tissues. Degenerative changes of the cervical spine. IMPRESSION: 1. Motion degraded exam without acute intracranial abnormality identified. 2. Unremarkable CTA of the head and neck. Medications Administered ER Medications Given: None ECG Indication: altered mental status Rate (beats per minute): 91 Rhythm: normal sinus Findings: + RBBB Comparison ECG Date: from (November 13, 2020) Change: the following changes noted (Sinus rhythm replaced atrial flutter) Code Status & VTE Plan Code Status Full VTE Prophylaxis Plan VTE Prophylaxis will be ordered: Yes PG Care Time/CCT Total # of Minutes Spent Total Time Spent with Patient: Total time spent is greater than 50% in coordination of care (as documented) at patient's floor/unit and/or counseling patient: Coding Level of Care Code INT OBSERVATION CARE 70M LVL 3 Diagnoses Diabetes E11.9 Anemia D64.9 HTN (hypertension) I10 Paroxysmal atrial flutter I48.92 Esophageal varices I85.00 Obstructive sleep apnea of adult G47.33 Altered mental status R41.82 CAD (coronary artery disease) I25.10 Expressive aphasia R47.01
--- NOTE | 2021-03-12 10:50 | Ultrasound Report ---
ULTRASOUND RIGHT UPPER QUADRANT ABDOMEN CLINICAL HISTORY: Elevated bilirubin and hepatic transaminases. COMPARISON STUDY: Abdominal CT dated 07/03/2020. TECHNIQUE: Real-time, grayscale, and color flow sonography of the right upper quadrant of the abdomen was performed. Images are reviewed in the transverse and longitudinal planes. The examination is deg raded by large body habitus. FINDINGS: Liver: The liver is cirrhotic in morphology and heterogeneous in echotexture. Echotexture is increase d suggesting steatosis. There is nodularity of the hepatic surface contour. A hypoechoic focus near t he hepatic dome and measures 2.3 x 1.7 x 2.4 cm. There is no intrahepatic biliary ductal dilatation. The main portal vein is patent. Gallbladder: The gallbladder is gross normal as visualized but not well assessed. The large calcified gallstones seen by CT on 07/03/2020 were not well visualized. There is no gallbladder wall thickening or pericholecystic fluid. A sonographic Garcia's sign is reportedly absent. The common bile duct kaleigh sures up to 0.5 cm in diameter. Pancreas: Not visualized due to overlying bowel gas. Right kidney: Survey images of the right kidney demonstrate normal size and echotexture. There is no hydronephrosis. Right renal cysts measure up to 5.2 cm. Ascites: None. IMPRESSION: 1. The examination is significantly degraded by large body habitus. 2. The liver is cirrhotic in morphology and shows evidence of steatosis. 3. There is no sonographic evidence of acute cholecystitis. The gallstones seen by CT were not appare nt on today's ultrasound. 4. A 2.4 cm lesion in the hepatic dome is unchanged and likely represents a hemangioma when correlate d with prior studies. 5. Nonvisualization of the pancreas. ACT 112: Negative or not required by law. Electronically signed by: Ronal Brady M.D. 03/12/2021 10:49 AM
[2021-03-12] MEDS ORDERED: NITROGLYCERIN 2% OINTMENT 30GM TUBE EXT STA ×2 (11:14→11:50)
--- NOTE | 2021-03-12 11:14 | XRay Report ---
SINGLE VIEW CHEST CLINICAL HISTORY: Change in mental status. FINDINGS: 3 AP, portable, upright chest radiographs are compared to study dated 11/13/2020 and correlat ed with chest CT dated 07/04/2017. The examination is degraded by portable technique and patient rotat ion. The patient is status post midline sternotomy. The heart is enlarged noting atherosclerotic calc ification of the thoracic aorta. The pulmonary vasculature is noncongested. Scarring/atelectasis is n oted at the lung bases. No airspace consolidation, large pleural effusion, or pneumothorax is identif ied. The skeletal structures are osteopenic. The bony thorax is grossly intact. IMPRESSION: Cardiomegaly with no acute cardiopulmonary abnormality. ACT 112: Negative or not required by law. Electronically signed by: Ronal Brady M.D. 03/12/2021 11:13 AM
--- NOTE | 2021-03-12 13:08 | Magnetic Resonance Report ---
MRI OF THE BRAIN WITHOUT CONTRAST CLINICAL HISTORY: expressive aphasia ?stroke COMPARISON STUDY: April 24, 2020 FINDINGS: Sagittal T1, axial diffusion images were acquired. This exam is significantly limited due to motion artifact. Sagittal T2, coronal T2 FLAIR, axial T1 an d GRE sequence was not performed. Study is incomplete because patient removed coil during exam. No definite intra or extra-axial mass lesions are visualized, Axial diffusion-weighted images reveal no evidence of acute or subacute infarction. There is no evidence of ventricular dilatation. Proton density T2-weighted and FLAIR sequences was not performed. Assessment for flow voids is incomplete due to motion artifact. There is questionable fluid signal within anatomical region of the right maxillary sinus which might represent sinusitis. IMPRESSION: No evidence of restricted diffusion to suggest acute ischemia/infarct. Possible fluid within the right maxillary sinus which might represent sinusitis in appropriate clinic al settings. No definite large intracranial mass lesions or midline shift. Significantly limited exam due to motion artifact and uncooperative patient as detailed above. ACT 112: Negative or not required by law. The above report was generated using voice recognition software. It may contain grammatical, syntax o r spelling errors. Electronically signed by: Loida Gibbons DO 03/12/2021 1:06 PM
[2021-03-12] MEDS ORDERED: rifAXIMin 550 MG TABLET PO STA (15:37)
[2021-03-12] MEDS ORDERED: LACTULOSE SYRUP 30 GM/45 ML UDP PO STA (15:37)
[2021-03-12] MEDS ORDERED: PANTOprazole 40 MG TAB PO STA (15:38)
[2021-03-12] MEDS ORDERED: PROPRANOLOL HCL 10 MG TAB PO STA (15:38)
[2021-03-12] MEDS ORDERED: LACTULOSE 200 GM, WATER, STERILE IRRIG 700 ML, BARCODE IDENTIFIER 1 EA PR SCH ×2 (16:00→16:31)
[2021-03-12] MEDS ORDERED: UNIT DOSE COMPOUND PR SCH ×2 (16:00→16:31)
[2021-03-12] MEDS ORDERED: GLUCOSE 10 TABS/TUBE PO PRN (16:31)
[2021-03-12] MEDS ORDERED: CARBOHYDRATES FOR HYPOGLYCEMIA PO PRN (16:31)
[2021-03-12] MEDS ORDERED: GLUCAGON FOR INJ 1 MG VIAL SQ PRN (16:31)
[2021-03-12] MEDS ORDERED: DEXTROSE 50% 50 ML SYRINGE IV PRN (16:31)
[2021-03-12] MEDS ORDERED: GLUCOSE 40% GEL 15 GM TUBE PO PRN (16:31)
[2021-03-12] MEDS ORDERED: NITROGLYCERIN 2% OINTMENT 30GM TUBE EXT SCH (16:31)
[2021-03-12] MEDS ORDERED: PHARMACIST DISCHARGE MED REC CONSULT PRN (16:31)
[2021-03-12] MEDS ORDERED: INFLUENZA VACCINE HIGH DOSE PF 65+ 0.7 ML SYR IM ONE (17:02)
[2021-03-12] MEDS: rifAXIMin 550 MG TABLET PO SCH ×2 (17:30→21:07)
[2021-03-12] MEDS: WARFARIN SOD 7.5 MG TAB PO SCH (18:08)
[2021-03-12] MEDS: DOXYCYCLINE HYCLATE 100 MG CAP PO SCH (18:08)
[2021-03-12] MEDS: DICLOFENAC SOD 1% GEL 100 GM TUBE EXT SCH ×2 (18:09→21:09)
[2021-03-12] MEDS: INSULIN ASPART 100 UNITS/ML 3 ML PEN SC SCH ×2 (18:19→21:01)
[2021-03-12] MEDS ORDERED: ISOSORBIDE MONO EXTENDED REL 60 MG TABCR PO SCH (21:00)
[2021-03-12] MEDS: LACTULOSE SYRUP 20 GM/30 ML UDC PO SCH (21:06)
[2021-03-12] MEDS: TAMSULOSIN HCL 0.4 MG CAP PO SCH (21:07)
[2021-03-12] MEDS: PANTOprazole 40 MG TAB PO SCH (21:07)
[2021-03-12] MEDS: EZETIMIBE 10 MG TABLET PO SCH (21:07)
[2021-03-12] MEDS: POTASSIUM CHLORIDE CRTAB 20 MEQ TABCR PO SCH (21:07)
[2021-03-12] MEDS: PROPRANOLOL HCL 10 MG TAB PO SCH (21:07)
[2021-03-12] MEDS: AMIODARONE 200 MG TAB PO SCH (21:07)
[2021-03-12] MEDS: GABAPENTIN 300 MG CAP PO SCH (21:07)
[2021-03-13] MEDS ORDERED: ACETAMINOPHEN 500 MG TAB PO PRN (01:00)
[2021-03-13 06:14] LABS: Mean Corpuscular Hgb Conc 32.6 g/dL (32-36)
[2021-03-13 06:32] LABS: Hematocrit (blood only) 36.5 % (42-52); Hemoglobin 11.9 g/dL (14.0-18.0); Mean Corpuscular Hemoglobin 21.4 pg (25-34); Mean Corpuscular Volume 65.5 fL (80-100); RDW Coefficient of Variation 21.8 % (11.5-14.5); RDW Standard Deviation 51.3 fL (36.4-46.3); Red Blood Count 5.57 M/uL (4.7-6.1); White Blood Count 3.73 K/uL (4.8-10.8)
[2021-03-13 06:41] LABS: INR 1.8 (0.9-1.1); Prothrombin Time 17.4 Seconds (9.0-12.0)
[2021-03-13 06:53] LABS: Platelet Count 101 K/uL (130-400)
[2021-03-13 06:55] LABS: BUN Creatinine Ratio 9.5 (10-20); Calcium 8.2 mg/dl (8.5-10.1); Est GFR (African American) 106.9 ml/min; Est GFR (Non-African American) 92.3 ml/min; Potassium 2.9 mmol/L (3.5-5.1)
[2021-03-13 07:23] LABS: Anisocytosis Present; Basophils # (auto) 0.01 K/uL (0-0.2); Basophils % (auto) 0.3 %; Eosinophils % (auto) 2.7 %; Hypochromasia Present; Immature Granulocytes # (auto) 0.01 K/uL (0.00-0.02); Immature Granulocytes % (auto) 0.3 %; Lymphocytes # (auto) 1.54 K/uL (1.2-3.4); Lymphocytes % (auto) 41.3 %; Microcytosis Present; Monocytes # (auto) 0.47 K/uL (0.11-0.59); Monocytes % (auto) 12.6 %; Neutrophils % (auto) 42.8 %; Platelet Estimate Decreased (Normal); Polychromasia 1+; Target Cells 1+
[2021-03-13] MEDS: DICLOFENAC SOD 1% GEL 100 GM TUBE EXT SCH ×4 (08:10→20:56)
[2021-03-13] MEDS: DOXYCYCLINE HYCLATE 100 MG CAP PO SCH ×2 (08:11→16:52)
[2021-03-13] MEDS: PROPRANOLOL HCL 10 MG TAB PO SCH ×3 (08:12→20:55)
[2021-03-13] MEDS: rifAXIMin 550 MG TABLET PO SCH ×3 (08:12→20:55)
[2021-03-13] MEDS: AMIODARONE 200 MG TAB PO SCH ×2 (08:12→20:54)
[2021-03-13] MEDS: POTASSIUM CHLORIDE CRTAB 20 MEQ TABCR PO SCH ×2 (08:12→20:55)
[2021-03-13] MEDS: GABAPENTIN 300 MG CAP PO SCH ×3 (08:12→20:55)
[2021-03-13] MEDS: lisinopril 20 MG TAB PO SCH (08:13)
[2021-03-13] MEDS: buPROPion SR 100 MG TABCR PO SCH (08:13)
[2021-03-13] MEDS: dilTIAZem ER 180 MG CAPCR PO SCH (08:13)
[2021-03-13] MEDS: INSULIN ASPART 100 UNITS/ML 3 ML PEN SC SCH ×4 (08:18→21:09)
[2021-03-13] MEDS ORDERED: POTASSIUM CHLORIDE CRTAB 20 MEQ TABCR PO STA (08:24)
[2021-03-13] MEDS: PANTOprazole 40 MG TAB PO SCH ×2 (08:24→20:55)
[2021-03-13] MEDS: LACTULOSE SYRUP 20 GM/30 ML UDC PO SCH ×2 (08:25→14:00)
[2021-03-13 10:14] LABS: Estimated Average Glucose 143 mg/dl; Hemoglobin A1C 6.6 % (4.5-5.6)
--- NOTE | 2021-03-13 10:41 | Neurology Consultation ---
Date of Consultation March 13, 2021 Assessment & Plan (1) Encephalopathy: I suspect this patient has hepatic encephalopathy. He exhibits slow processing speed, mild confusion this morning, he is not aphasic and does not have focal neurologic deficits otherwise suggestive of stroke. He does have mild asterixis and an elevated ammonia level. Agree with lactulose and rifaximin for hepatic encephalopathy. No further immediate recommendations in this context. No need for immediate follow-up in neurology clinic at this point in time. History of Present Illness Reason for Consultation: Confusion/aphasia Requesting Physician: Dirk English MD Attending Physician: Tj Olvera DO History of Present Illness The patient is a 70-year-old male who has been following with the neurology service, last evaluated by Lisy Villa this past November for mild cognitive impairment, has had neuropsychological evaluation, no indication of neurodegenerative dementia. Past medical history notable for atrial flutter, morbid obesity, Hartmann cirrhosis, hepatocellular carcinoma, diabetes mellitus, coronary artery disease. Patient presented to the emergency department yesterday for further evaluation of confusion characterized by slow thinking, some word finding difficulty as well. Symptom onset initially felt to be subacute, beginning several days ago. Patient does have some difficulty relating his history of present illness due to slow cognitive processing. He is not aphasic. He did have an unremarkable CT of the head including CT angiography of the head and neck. A brain MRI was negative for acute or subacute stroke. Neuro imaging was modestly limited due to movement artifact. An ammonia level was 75.0. Allergies Allergy/AdvReac Type Severity Reaction Status Date / Time simvastatin AdvReac Intermediate GI UPSET- Verified 03/12/21 08:55 OK WITH LIPITOR pioglitazone AdvReac Mild GI UPSETS Verified 03/12/21 08:55 spironolactone AdvReac Mild NIPPLES Verified 03/12/21 08:55 HURT Home Medications Medication Instructions Recorded Confirmed Type multivitamin 1 tab PO QAM 01/23/19 03/12/21 History CPAP Supplies #1 ea 04/26/19 01/28/21 Rx CPAP Supplies #1 ea 10/25/19 01/28/21 Rx CPAP Machine #1 ea 02/08/20 01/28/21 Rx diltiazem HCl 180 mg capsule,24 180 mg PO QAM #90 cap 08/08/20 03/12/21 Rx hr,extended release doxycycline monohydrate 100 mg 100 mg PO BIDM #180 cap 08/08/20 03/12/21 Rx capsule nitroglycerin 0.6 mg sublingual 0.6 mg SUBLINGUAL DIRECTED PRN 08/20/20 Rx tablet #20 tab gabapentin 300 mg capsule 300 mg PO TID #270 cap 09/24/20 03/12/21 Rx omega-3 acid ethyl esters 1 gram 1 cap PO BID #180 cap 10/16/20 03/12/21 Rx capsule eplerenone 25 mg tablet 25 mg PO QAM 90 Days #90 tab 10/29/20 03/12/21 Rx blood sugar diagnostic (OneTouch #100 ea 11/11/20 01/28/21 Rx Ultra Blue Test Strip) lancets 33 gauge (OneTouch Delica #400 ea 11/11/20 01/28/21 Rx Lancets) blood-glucose meter (OneTouch #1 ea 11/18/20 01/28/21 Rx Ultra2 Meter) insulin glargine 100 unit/mL (3 8 unit SUBCUT HS 90 Days #7.2 ml 11/27/20 03/12/21 Rx mL) subcutaneous pen (Lantus Solostar U-100 Insulin) bupropion HCl 100 mg tablet,12 hr 100 mg PO QAM #90 ea 01/07/21 03/12/21 Rx sustained-release (Wellbutrin SR) duloxetine 60 mg capsule,delayed 60 mg PO QAM #90 cap 01/07/21 03/12/21 Rx release dutasteride 0.5 mg capsule 0.5 mg PO HS #90 cap 01/07/21 03/12/21 Rx (Avodart) ezetimibe 10 mg tablet 10 mg PO QPM 90 Days #90 tab 01/07/21 03/12/21 Rx pantoprazole 40 mg tablet,delayed 40 mg PO BID #180 tab 01/07/21 03/12/21 Rx release rifaximin 550 mg tablet (Xifaxan) 550 mg PO TID #270 tab 01/07/21 03/12/21 Rx tamsulosin 0.4 mg capsule 0.4 mg PO HS 90 Days #90 cap 02/05/21 03/12/21 Rx diclofenac sodium 1 % topical gel 4 g TOP QID #100 gm 09/07/21 09/30/21 Rx isosorbide mononitrate 120 mg 120 mg PO QPM #90 tab 02/17/21 03/12/21 Rx tablet,extended release 24 hr lactulose 10 gram/15 mL oral 15 ml PO TID PRN #3784 ml 02/23/21 03/12/21 Rx solution propranolol 10 mg tablet 10 mg PO TID #270 tab 02/23/21 03/12/21 Rx amiodarone 200 mg tablet (Pacerone) 200 mg PO BID 03/12/21 03/12/21 History lisinopril 20 mg tablet 20 mg PO QAM 03/12/21 03/12/21 History potassium chloride 20 mEq 20 meq PO BID 03/12/21 03/12/21 History tablet,extended release(part/cryst) warfarin 5 mg tablet 5 mg PO WK 03/12/21 03/12/21 History warfarin 7.5 mg tablet 7.5 mg PO [id number] 03/12/21 03/12/21 History Patient History Medical History Anemia Anxiety and depression CAD (coronary artery disease) Cauda equina compression Chronic systolic CHF (congestive heart failure) Cirrhosis of liver not due to alcohol Cyst of kidney, acquired Depression Enlarged prostate Esophageal varices Essential tremor GERD (gastroesophageal reflux disease) Gout Hepatic hemangioma HTN (hypertension) Hx of myocardial infarction Hyperlipidemia Hypertension Internal hemorrhoids Liver failure snf (current) use of anticoagulants Mass of petrous temporal bone Medical marijuana use Morbid obesity Opioid dependence Osteomyelitis of lumbar spine PAF (paroxysmal atrial fibrillation) Pancytopenia Pigmented nevus Pulmonary nodule Seborrheic keratosis Sleep apnea Spinal stenosis of lumbar region (05/15/13) Thyroid nodule Tubular adenoma of colon Type 2 diabetes mellitus Vitamin D deficiency Wide-complex tachycardia Surgical History History of back surgery History of cardiac cath History of coronary artery bypass graft x 3 History of esophagogastroduodenoscopy (EGD) (~05/29/19) History of heart surgery History of right knee surgery Hx of colonoscopy Hx of vasectomy Family History Mother Stroke Father Stroke Aunt Cancer Other No family history of adverse response to anesthesia No significant family history Denies family history of Colon cancer Ovarian cancer Prostate cancer Myocardial infarction Breast cancer Social History Smoking Status: Former smoker Tobacco Type: Cigarettes Age Quit Using Tobacco: 60; Second Hand Exposure: No; Hx Alcohol Use: Yes Alcohol type: beer and wine Alcohol Intake Frequency: Monthly or Less Hx Substance Use: Yes Last Used Substance: Unknown Last Used Substance Other:: presciption for medicinal marijuana Substance Use Type Other:: medical marijuana Preferred Language: Portuguese Communication Ability: Effective Visual Impairment: No Limitations Hearing Ability: Normal 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 Required: No Beliefs That Will Affect Care: None marital status: Current Living Situation: Spouse current occupational status: retired Other Information That Helps Us Care for You: No Feels Safe at Home: Yes Safety Concerns: Feels Safe At This Time Childhood Exposure to Second-Hand Smoke: Yes Dental Care, Regularly: Yes Physical Activity Frequency: 3-4 Times per Week Seatbelt Use: always Assistive Devices: Cane and Walker Review of Systems Constitutional: no fever and no chills Eyes: no blind spots and no diplopia Ear, Nose, Mouth, Throat: no ear pain and no hearing loss Respiratory: no cough and no dyspnea Cardiovascular: no chest pain and no palpitations Gastrointestinal: no constipation and no diarrhea/loose stools Genitourinary: no urinary incontinence or no urinary urgency Musculoskeletal: no muscle weakness and no muscle atrophy Integumentary: no rash and no lesions Neurologic: as per Subjective / HPI, + gait abnormality, + unsteadiness, + loss of sensation, + tremor(s) and + confusion Psychiatric: no behavioral changes, no depression, no abnormal sleep pattern and no anxiety Hematologic / Lymphatic: no easy bruising and no lymphadenopathy Exam (Neuro) Constitutional: well developed and well nourished; no acute distress Eyes: normal visual mora by confrontation, PERRL, normal accommodation and EOM intact bilaterally; no fundoscopic abnormality, no nystagmus and no papilledema Cardiovascular: Vessels: normal carotid upstroke; no carotid bruit Neurologic: Oriented to:: Person; negative Place or Time Memory: Remote Intact; negative Short Term Intact Attention: negative Span Intact or Concentration Intact Language: Naming Objects and Repeating Phrases Speech Fluency: Slowed; negative Dysarthria Speech Aphasia: negative Aphasia Fund of Knowledge: Current Events, Past History and Vocabulary Cranial Nerves: Normal II (Visual mora full to confrontation, visual acuity normal), III, IV, (Pupils equal round reactive to light and accommodation, eye movements normal), V (Facial sensation intact), VII (There is no facial droop or weakness), VIII (Hearing intact), IX, X (Palate elevates to midline), XI (Shoulder shrug intact) and XII (Tongue protrudes to midline) Motor Strength: Normal Lower Extremities and Normal Upper Extremities; negative Pronator Drift Motor Tone: Normal Lower Extremities and Normal Upper Extremities Muscle Bulk/Involuntary Movements: negative No Involuntary Movements or Muscle Atrophy Sensation: negative Light Touch Intact, Pain/Temperature Intact, Vibration Intact or Proprioception Intact Coordination: Finger-Nose Abnormal and Heel- Rice Abnormal Deep Tendon Reflexes: Rt Triceps: 1+, Lt Triceps: 1+, Rt Biceps: 1+, Lt Biceps: 1+, Rt Brachioradialis: 1+, Lt Brachioradialis: 1+, Rt Patellar: 1+, Lt Patellar: 1+, Rt Ankle: 0 and Lt Ankle: 0 Special Tests: negative Babinski Present Details: Gait could not be tested in the context of patient's current neurological/medical status. Exhibits moderately slowed processing speed and slight impairment of attention and concentration. He is not aphasic. Mild asterixis noted with outstretched hands. He has a length dependent sensory loss to all modalities. Results & Data ([facility] [place]) Vital Signs (Past 12 Hours) Vital Signs Temp Pulse Pulse Resp BP Pulse Ox 03/13/21 06:55 36.3 C L 62 14 104/71 99 03/13/21 03:08 36.9 C 60 18 126/82 98 03/12/21 23:24 36.5 C 64 20 121/74 96 03/12/21 22:36 66 Laboratory Results WBC 3.73, hemoglobin 11.9, hematocrit 36.5, platelet count 101, INR 2.1 on admission, sodium 144, potassium 2.9, BUN 7, creatinine 0.79, glucose 98, hemoglobin A1c 6.6, calcium 8.2, total bilirubin 1.1, AST 144, ALT 102, ammonia 75.0, TSH 3.220, urine drug screen positive for marijuana. Diagnostic Findings CT of the head including CT angiography of the head and neck and brain MRI are as described in history of present illness. Studies were limited by motion artifact. I did review the images as well as the radiologist interpretation of these tests. Diffusion-weighted imaging negative for stroke. No significant vascular lesion identified on angiography. Electrocardiogram reveals a normal sinus rhythm, right bundle branch block, 91 bpm. Coding Level of Care Code 02348 Initial In Care Lvl 2 Diagnoses Encephalopathy G93.40
--- NOTE | 2021-03-13 13:53 | Medical Student Progress Note ---
Date of Service March 13, 2021 Assessment & Plan (1) Hepatic encephalopathy: Plan: (1)Hepatic encephalopathy in setting of cirrhosis of liver: Plan: - CVA ruled out given unremarkable head CT, head and neck CTA, brain MRI is unremarkable in diffusion weighted for acute ischemia or infarct, and neurology consult -Ammonia level 75 -mild asterixis on physical exam -Patient with no bowel movements today, therefore will increase lactulose from 20g TID to 30 gram poQ6 - continue rifaximin 550 mg po TID -continue PT/OT (2) Diabetes: Plan: HbA1C 6.6 today Novolog sliding scale only given current glucose levels Consider adding back his lantus as glucose improves (3) HTN (hypertension): Plan: Nitro paste now Will re-introduce his usual propranolol, ISMN, diltiazem, lisinopril and amiodarone as BP allows (4) Paroxysmal atrial flutter: Plan: Continue amiodarone 200mg BID continue warfarin (5) Anemia: Plan: Pancytopenia ?due to liver cirrhosis. Some mention of alpha thalassemia on prior notes. Appears to be at baseline. (6) Esophageal varices: Plan: Will restart on propranolol as able. Monitor Hgb with AM labs. (7) Obstructive sleep apnea of adult: Plan: CPAP HS 10cm H2O OK to use home CPAP machine (8) CAD (coronary artery disease): Plan: CABG in 1993 and 2010 On no antiplatelets nor statin Continue metoprolol, lisinopril, ISMN as BP allows. VTE Prophylaxis - warfarin Diet - heart healthy Disposition - med/tele Admission and Anticipated Discharge Date Admission Date: March 12, 2021 Supervising Attestation I personally examined the patient and verified all barton points of history and exam, discussed case, and agree with decision making with Oracio Espinosa MS2 Still no real meaningful HPI review of systemspatient still disoriented. Does not complain of any pain currently. Later called and updatedapproximately 25-minute phone call answered all questions the best my ability and to her satisfaction. Vitals noted, in general he is awake and alert but disoriented appears fatigued no distress. HEENT normocephalic atraumatic mucous membranes moist. Breathing unlabored no accessory muscle use good effort. Abdomen is soft nondistended nontender. Hepatic encephalopathyappears to be cirrhosis driven by metabolic illnesslactulose for the ammonia, supportive careonce he is more awake and alert, will discussed the need for massive lifestyle change, given that his Swift/cirrhosis is very likely dismetabolic driven, massive lifestyle overall would at least give him a fighting chance to improve hepatic function and prevent worsening. Otherwise as above Subjective 70 yo M with a complex medical history involving ALDO, CHF, paroxysmal atrial flutter, cauda equina syndrome, HTN, CAD s/p triple bypass x2, SWIFT cirrhosis, DM, depression, pancytopenia admitted for altered mental status and expressive aphasia. Today the patient has some confusion associated with slow thinking and difficulty word finding. Unfortunately, the history is limited by the patient's confusion. Review of Systems Review of Systems: Unobtainable due to cognitive status Physical Exam Physical Exam: General: well nourished, well appearing male in no acute distress, resting comfortably in bed Cardiovascular: RRR, regular S1,S2, no M/R/Gs Respiratory: regular respiratory effort, unlabored Skin: no rashes, warm, and dry Neurologic: moves all extremities, awake and + confused Motor/Sensory: + asterixis Cranial Nerves: PERRL and EOM intact bilaterally Results & Data ([facility]) Vital Signs (Past 12 Hours) Vital Signs Temp Pulse Pulse Resp BP Pulse Ox 03/13/21 11:53 37.0 C 62 18 127/78 92 03/13/21 08:00 61 03/13/21 06:55 36.3 C L 62 14 104/71 99 03/13/21 03:08 36.9 C 60 18 126/82 98 Laboratory Results Abnormal lab results 03/12/21 03/13/21 03/13/21 Range/Units 20:09 05:35 05:35 WBC 3.73 L (4.8-10.8) K/uL Hgb 11.9 L (14.0-18.0) g/dL Hct 36.5 L (42-52) % MCV 65.5 L (80-100) fL MCH 21.4 L (25-34) pg RDW Std Deviation 51.3 H (36.4-46.3) fL RDW Coeff of Jt 21.8 H (11.5-14.5) % Plt Count 101 L (130-400) K/uL Platelet Estimate Decreased L (Normal) PT 17.4 H (9.0-12.0) Seconds INR 1.8 H (0.9-1.1) Potassium (3.5-5.1) mmol/L Chloride (98-107) mmol/L BUN/Creatinine Ratio (10-20) POC Glucose 127 H (70-99) mg/dl Hemoglobin A1c (4.5-5.6) % Calcium (8.5-10.1) mg/dl 03/13/21 03/13/21 03/13/21 Range/Units 05:35 05:35 07:59 WBC (4.8-10.8) K/uL Hgb (14.0-18.0) g/dL Hct (42-52) % MCV (80-100) fL MCH (25-34) pg RDW Std Deviation (36.4-46.3) fL RDW Coeff of Jt (11.5-14.5) % Plt Count (130-400) K/uL Platelet Estimate (Normal) PT (9.0-12.0) Seconds INR (0.9-1.1) Potassium 2.9 L D (3.5-5.1) mmol/L Chloride 109 H (98-107) mmol/L BUN/Creatinine Ratio 9.5 L (10-20) POC Glucose 187 H (70-99) mg/dl Hemoglobin A1c 6.6 H (4.5-5.6) % Calcium 8.2 L (8.5-10.1) mg/dl
[2021-03-13] MEDS ORDERED: WARFARIN SOD 5 MG TAB PO SCH (16:00)
[2021-03-13] MEDS: LACTULOSE SYRUP 30 GM/45 ML UDP PO SCH ×2 (16:59→23:52)
--- NOTE | 2021-03-13 17:45 | Electrocardiogram Report ---
Test Reason : Blood Pressure : / mmHG Vent. Rate : 091 BPM Atrial Rate : 091 BPM P-R Int : 178 ms QRS Dur : 192 ms QT Int : 490 ms P-R-T Axes : 077 094 033 degrees QTc Int : 602 ms Normal sinus rhythm Right bundle branch block Inferior infarct (cited on or before 12-AUG-2020) Abnormal ECG When compared with ECG of 13-NOV-2020 05:20, No significant change Confirmed by Canelo Isbell ([id number]) on 03/13/2021 5:45:27 PM Referred By: REFERRED SELF Confirmed By:Canelo Isbell
--- NOTE | 2021-03-13 19:39 | Billing Data ---
Date of Service March 13, 2021 Coding Level of Care Code 73315 Subseq Hosp Care Lvl 3
[2021-03-13] MEDS: EZETIMIBE 10 MG TABLET PO SCH (20:54)
[2021-03-13] MEDS: TAMSULOSIN HCL 0.4 MG CAP PO SCH (20:56)
[2021-03-13 21:02] LABS: Marijuana Quant, GCMS Urine 106 ng/mL (<5)
--- NOTE | 2021-03-14 05:08 | Hospitalist Progress Note ---
Date of Service March 14, 2021 Assessment & Plan (1) Encephalopathy: Plan: Chivo is a 70-year-old male with a notable history of metabolic syndrome, obesity ALDO, pAF, previous cauda equina, HTN, CAD s/p CABG x 2, ID-T2DM, DM, depression, pancytopenia who was admitted for encephalopathy, suspected to be secondary to SWIFT cirrhosis. Hepatic Encephalopathy presenting ammonia level of 75 in setting of mild transaminitis * Patient with history of metabolic syndrome, CAD, ID-T2DM with neuropathy, HTN, obesity who presented with AMS in the setting of hyperammonemia and mild transaminitis plus imaging findings c/w cirrhosis without ductal pathology/obstruction. Given his dysmetabolic profile, suspect acute encephalopathy is founded by SWIFT cirrhosis, with acute worsening from amiodarone (started in 11/2020 for AFib w/ RVR) * Work-up as follows: - Admission labs: AST 144, ALT 102, ALP 280, TBili 1. - Admission ammonia: elevated to 75 - Admission function: Na 144 / Cr 0.79 / INR 1.8 / Alb 2.6 - Brain MRI: Limited by motion artifact, but no obvious acute processes - CTA-H/N: No acute processes, no significant stenosis - Gallbladder US: Steatotic changes within cirrhotic morphology. No gallstones. Stable hemangioma. - TC 163 / LDL 95 / HDL 58 / TG 48 / A1c 6.6% * Neurology consulted: Encephalopathy, aphasia likely secondary to hepatic disease. Continue care plan as below. * Stop amiodarone - suspect this is contributory. * Lactulose 30mg t.i.d. --> if worsening AMS, increase to 30 q.i.d. * Rifaximin 550mg t.i.d. * Continue PT, OT * Will require extensive counselling on lifestyle changes for treatment of SWIFT Chronic Medical Conditions HTN: Resume BP agents: propranolol, isosorbide, diltiazem, Lisinopril pAF: Continue diltiazem, Warfarin (INR 2-3 goal). Stop amiodarone. Monitor rates. Pancytopenia: Chronic, possibly due to ?a-thalassemia. Stable. Monitor Hgb. ALDO: Home CPAP while here CAD: s/p CABG x 3. Continue BP meds. Not on statin or antiplatelet. ID-T2DM with Neuropathy: A1c 6.6 on admission. SSI for now. Continue readdition of Lantus. Dispo: MS/T PPX: Home warfarin Diet: HH Code: FULL CODE (2) Paroxysmal atrial flutter: (3) Diabetes: (4) Anemia: (5) HTN (hypertension): (6) Hyperlipidemia: (7) Atrial flutter: (8) Pancytopenia: (9) Chronic systolic CHF (congestive heart failure): (10) Morbid obesity: (11) CAD (coronary artery disease): (12) Depression: (13) Essential (primary) hypertension: (14) PAF (paroxysmal atrial fibrillation): (15) Obstructive sleep apnea of adult: (16) Diabetic peripheral neuropathy: Admission and Anticipated Discharge Date Admission Date: March 12, 2021 Supervising Physician Co-Signing Physician Notes I personally examined the patient and verified all barton points of history and exam, discussed case, and agree with decision making with Dr Jasso. Way more coherent todayable to joke around and asked good questions. Every now and then loses train of thought, but otherwise seems totally mentally intact. Updated on working diagnosis, probable culprits, and plan. Vitals noted, in general he is awake alert oriented x3 pleasant no distress. HEENT normocephalic atraumatic mucous membranes moist. Breathing unlabored no accessory muscle use good effort. Skin shows no rashes no pallor or icterus. Neuro without focal deficits. Hepatic encephalopathyappears to be cirrhosis driven by metabolic illnesslactulose improving. On further review, suspicious yesterday about when the amiodarone was startedit appears to have been started just a few months agoit may also be a bit of a culprit on "why now"discussed with patient this, and will be holding the amiodarone. Discussed further with patient though that lifestyle change will likely have far bigger impact on his liver health than simply stopping amiodarone well. Both appear to likely be beneficial in getting him out of the current difficulty. Continue lactulose and rifaximin A. fibrate controlled, anticoagulated. Given the rather long half-life of amiodarone, I doubt we will need to do anything in the near future to substitute, therefore we will have him follow-up with cardiology. Continue to follow. Otherwise as above. Subjective NAEO. Patient much more oriented this AM based on report - knows who he is, where he is, and the time of day / year. Still unable to provide meaningful history, but denies pain or trouble with breathing / abdominal pain. Still feeling groggy. Review of Systems Review of Systems: as per HPI Physical Exam Physical Exam: General: Tired and groggy-appearing 70-year-old male who is lying back in his hospital bed, asleep, upon my arrival. HEENT: NCAT. Eyes - Sclera are white, anicteric, and without injection. Mouth - MMM with no tonsillar edema or exudates. Cardiac: Normal rate and regular rhythm; S1 and S2 present with no murmurs, rubs, or gallops. Pulmonary: Good respiratory effort with symmetric expansion of the chest. No use of accessory muscles. Lungs were clear to auscultation bilaterally with no crackles or wheezes. Abdominal: Normoactive bowel sounds. Abdomen was soft, nondistended, and non- tender to palpation. No hepatomegaly or splenomegaly. Extremities: Upper and lower extremities are warm and well perfused. Radial and dorsalis pedis pulses were 2+ b/l. Capillary refill assessed in UE was < 3 sec. Psych: Well-developed, well-nourished, appropriately dressed for occasion. Behavior is cooperative and appropriate. Affect is WNL. Insight is appropriate. Results & Data Results & Data ([facility]) Vital Signs (Past 12 Hours) Vital Signs Temp Pulse Pulse Pulse Resp BP BP 03/14/21 04:32 36.7 C 76 18 139/84 03/14/21 03:36 60 19 03/14/21 00:46 60 03/13/21 23:26 88 16 03/13/21 23:00 36.3 C L 59 L 18 163/83 H 03/13/21 18:43 36.7 C 57 L 20 123/81 Pulse Ox 03/14/21 04:32 94 03/14/21 03:36 91 03/14/21 00:46 03/13/21 23:26 94 03/13/21 23:00 94 03/13/21 18:43 97 Resident Activity Tracking Resident Involvement: Resident Care Provided Care Provided: Adult Hospital Medicine
[2021-03-14] MEDS: LACTULOSE SYRUP 30 GM/45 ML UDP PO SCH ×4 (06:02→23:17)
[2021-03-14 06:16] LABS: Mean Corpuscular Hgb Conc 32.3 g/dL (32-36)
[2021-03-14 06:36] LABS: INR 1.9 (0.9-1.1); Prothrombin Time 18.6 Seconds (9.0-12.0); Prothrombin Time 18.8 Seconds (9.0-12.0)
[2021-03-14 06:37] LABS: Calcium 8.4 mg/dl (8.5-10.1); Creatinine Clr Calc Pharmacy 104.6 ml/min; Est GFR (African American) 97.4 ml/min; Est GFR (Non-African American) 84.1 ml/min; Potassium 3.4 mmol/L (3.5-5.1)
[2021-03-14 06:40] LABS: Hematocrit (blood only) 35.6 % (42-52); Hemoglobin 11.5 g/dL (14.0-18.0); Mean Corpuscular Hemoglobin 21.5 pg (25-34); Mean Corpuscular Volume 66.7 fL (80-100); RDW Standard Deviation 52.5 fL (36.4-46.3); Red Blood Count 5.34 M/uL (4.7-6.1); White Blood Count 3.86 K/uL (4.8-10.8)
[2021-03-14] MEDS ORDERED: POTASSIUM CHLORIDE CRTAB 20 MEQ TABCR PO STA (06:43)
[2021-03-14 06:44] LABS: Platelet Count 103 K/uL (130-400)
[2021-03-14 06:46] LABS: Anisocytosis Present; Basophils # (auto) 0.01 K/uL (0-0.2); Basophils % (auto) 0.3 %; Eosinophils # (auto) 0.08 K/uL (0-0.5); Eosinophils % (auto) 2.1 %; Giant Platelets 2+; Hypochromasia Present; Lymphocytes # (auto) 1.48 K/uL (1.2-3.4); Lymphocytes % (auto) 38.3 %; Monocytes # (auto) 0.51 K/uL (0.11-0.59); Monocytes % (auto) 13.2 %; Neutrophils # (auto) 1.78 K/uL (1.4-6.5); Neutrophils % (auto) 46.1 %; Platelet Estimate Decreased (Normal); Target Cells 1+
[2021-03-14] MEDS: PANTOprazole 40 MG TAB PO SCH ×2 (08:29→20:21)
[2021-03-14] MEDS: AMIODARONE 200 MG TAB PO SCH (08:29)
[2021-03-14] MEDS: GABAPENTIN 300 MG CAP PO SCH ×3 (08:29→20:21)
[2021-03-14] MEDS: rifAXIMin 550 MG TABLET PO SCH ×3 (08:29→20:22)
[2021-03-14] MEDS: PROPRANOLOL HCL 10 MG TAB PO SCH ×3 (08:29→20:22)
[2021-03-14] MEDS: lisinopril 20 MG TAB PO SCH (08:30)
[2021-03-14] MEDS: buPROPion SR 100 MG TABCR PO SCH (08:30)
[2021-03-14] MEDS: DOXYCYCLINE HYCLATE 100 MG CAP PO SCH ×2 (08:30→17:15)
[2021-03-14] MEDS: dilTIAZem ER 180 MG CAPCR PO SCH (08:30)
[2021-03-14] MEDS: DICLOFENAC SOD 1% GEL 100 GM TUBE EXT SCH ×4 (08:31→20:20)
[2021-03-14] MEDS: POTASSIUM CHLORIDE CRTAB 20 MEQ TABCR PO SCH ×2 (08:31→20:22)
[2021-03-14] MEDS: INSULIN ASPART 100 UNITS/ML 3 ML PEN SC SCH ×4 (08:31→20:38)
[2021-03-14] MEDS: WARFARIN SOD 7.5 MG TAB PO SCH (17:14)
--- NOTE | 2021-03-14 18:42 | Billing Data ---
Date of Service March 14, 2021 Coding Level of Care Code 63801 Subseq Hosp Care Lvl 3
[2021-03-14] MEDS: EZETIMIBE 10 MG TABLET PO SCH (20:21)
[2021-03-14] MEDS: TAMSULOSIN HCL 0.4 MG CAP PO SCH (20:22)
[2021-03-15] MEDS: LACTULOSE SYRUP 30 GM/45 ML UDP PO SCH ×2 (06:07→12:53)
--- NOTE | 2021-03-15 06:40 | Hospitalist Progress Note ---
Date of Service March 15, 2021 Assessment & Plan (1) Encephalopathy: Plan: Chivo is a 70-year-old male with a notable history of SWIFT cirrhosis (previously deemend not to be a transplant candidate d/t high CV risk - @[facility] – [place]), benign hepatic hemangioma > vs. HCC (s/p TACE 01/03/17) - [facility], small esophageal varices,obesity ALDO, pAF, previous cauda equina, HTN, CAD s/p CABG x 2, ID-T2DM, DM, depression, pancytopenia who was admitted for encephalopathy, suspected to be secondary to SWIFT cirrhosis. Hepatic Encephalopathy secondary to SWFIT cirrhosis, likely compounded by recent amiodarone initiation in November * Patient with history of metabolic syndrome, CAD, ID-T2DM with neuropathy, HTN, obesity who presented with AMS in the setting of hyperammonemia and mild transaminitis plus imaging findings c/w cirrhosis without ductal pathology/obstruction. Given his dysmetabolic profile, suspect acute encephalopathy is founded by SWIFT cirrhosis, with acute worsening from amiodarone (started in 11/2020 for AFib w/ RVR) * Work-up as follows: - Admission labs: AST 144, ALT 102, ALP 280, TBili 1. - Admission ammonia: elevated to 75 - Admission function: Na 144 / Cr 0.79 / INR 1.8 / Alb 2.6 - Brain MRI: Limited by motion artifact, but no obvious acute processes - CTA-H/N: No acute processes, no significant stenosis - Gallbladder US: Steatotic changes within cirrhotic morphology. No gallstones. Stable hemangioma. - TC 163 / LDL 95 / HDL 58 / TG 48 / A1c 6.6% * Neurology consulted: Encephalopathy, aphasia likely secondary to hepatic disease. Continue care plan as below. * Amiodarone started in November. Suspect this is contributory towards the acuity of this hepatic encephalopathy. We will discontinue for now. Given amiodarone's half-life, should continue to see should continue to see therapeutic benefit over the next several weeks. Will require cardiology follow-up as outpatient. * Lactulose 30mg t.i.d. --> likely can decrease to b.i.d. within 1-2 weeks after d/c * Rifaximin 550mg t.i.d. * Continue PT, OT * Extensive conversations RE: SWIFT treatment, dysmetabolism while here. Mr. Herring is very engaged with changing diet, physical activity to achieve these goals. Can consider RD/clinical [place] as outpatient to further augment his care / expand care team Chronic Medical Conditions HTN: Continue propranolol, isosorbide, diltiazem, Lisinopril pAF: Continue diltiazem, Warfarin (INR 2-3 goal). Stopped amiodarone on 03/15/21. Rate controlled. Pancytopenia: Chronic, possibly due to ?a-thalassemia. Stable. Monitor Hgb. ALDO: Home CPAP while here CAD: s/p CABG x 3. Continue BP meds. Not on statin or antiplatelet. ID-T2DM with Neuropathy: A1c 6.6 on admission. SSI for now. Continue readdition of Lantus. Dispo: MS/T PPX: Home warfarin Diet: HH Code: FULL CODE (2) Paroxysmal atrial flutter: (3) Diabetes: (4) Anemia: (5) HTN (hypertension): (6) Hyperlipidemia: (7) Atrial flutter: (8) Pancytopenia: (9) Chronic systolic CHF (congestive heart failure): (10) Morbid obesity: (11) CAD (coronary artery disease): (12) Depression: (13) Essential (primary) hypertension: (14) PAF (paroxysmal atrial fibrillation): (15) Obstructive sleep apnea of adult: (16) Diabetic peripheral neuropathy: Admission and Anticipated Discharge Date Admission Date: March 12, 2021 Subjective NAEO. Feeling much more mental clarity this morning. Says he does not feel groggy. He feels well, good energy. We had a nice discussion about geology of [place] in the [facility] academic discussion that, due to the encephalopathy in days prior, I believe would have been much more difficult to have. He reports that mood is good. He denies any pain in his belly. Denies any chest pain, palpitations, shortness of breath.He was fully able to recall our conversation yesterday and the details within. Review of Systems Review of Systems: as per HPI Physical Exam Physical Exam: General: Well-appearing 70-year-old gentleman who is sitting up in his hospital bed, relaxed, upon my arrival. He converses freely and is fully alert and oriented. Compared to previous days, word finding difficulties is resolved. HEENT: NCAT. Eyes - Sclera are white, anicteric, and without injection. Mouth - MMM with no tonsillar edema or exudates. Cardiac: Normal rate and regular rhythm; S1 and S2 present with no murmurs, rubs, or gallops. Pulmonary: Good respiratory effort with symmetric expansion of the chest. No use of accessory muscles. Lungs were clear to auscultation bilaterally with no crackles or wheezes. Abdominal: Normoactive bowel sounds. Abdomen was soft, nondistended, and non- tender to palpation. No hepatomegaly or splenomegaly. Extremities: Upper and lower extremities are warm and well perfused. Capillary refill assessed in UE was < 3 sec. Psych: Well-developed, well-nourished, appropriately dressed for occasion. Behavior is cooperative and appropriate. Affect is WNL. Insight is appropriate. Results & Data Results & Data ([facility]) Vital Signs (Past 12 Hours) Vital Signs Temp Pulse Pulse Resp BP Pulse Ox 03/15/21 02:40 64 12 98 03/14/21 23:30 36.6 C 57 L 16 150/85 H 100 03/14/21 23:20 62 18 97 03/14/21 23:00 36.5 C 62 18 172/82 H 97 Resident Activity Tracking Resident Involvement: Resident Care Provided Care Provided: Adult Hospital Medicine
[2021-03-15] MEDS: INSULIN ASPART 100 UNITS/ML 3 ML PEN SC SCH ×2 (08:54→12:29)
[2021-03-15] MEDS: GABAPENTIN 300 MG CAP PO SCH ×2 (09:09→13:00)
[2021-03-15] MEDS: DICLOFENAC SOD 1% GEL 100 GM TUBE EXT SCH ×2 (09:09→12:54)
[2021-03-15] MEDS: POTASSIUM CHLORIDE CRTAB 20 MEQ TABCR PO SCH (09:10)
[2021-03-15] MEDS: rifAXIMin 550 MG TABLET PO SCH ×2 (09:10→13:00)
[2021-03-15] MEDS: PANTOprazole 40 MG TAB PO SCH (09:10)
[2021-03-15] MEDS: lisinopril 20 MG TAB PO SCH (09:11)
[2021-03-15] MEDS: PROPRANOLOL HCL 10 MG TAB PO SCH ×2 (09:11→13:00)
[2021-03-15] MEDS: buPROPion SR 100 MG TABCR PO SCH (09:11)
[2021-03-15] MEDS: dilTIAZem ER 180 MG CAPCR PO SCH (09:11)
[2021-03-15] MEDS: DOXYCYCLINE HYCLATE 100 MG CAP PO SCH (09:11)
[2021-03-15 11:12] LABS: Mean Corpuscular Hgb Conc 31.8 g/dL (32-36)
[2021-03-15 11:15] LABS: Hematocrit (blood only) 36.8 % (42-52); Hemoglobin 11.7 g/dL (14.0-18.0); Mean Corpuscular Hemoglobin 21.5 pg (25-34); Mean Corpuscular Volume 67.8 fL (80-100); RDW Coefficient of Variation 22.4 % (11.5-14.5); RDW Standard Deviation 53.8 fL (36.4-46.3); Red Blood Count 5.43 M/uL (4.7-6.1); White Blood Count 3.36 K/uL (4.8-10.8)
[2021-03-15 11:21] LABS: INR 2.1 (0.9-1.1); Prothrombin Time 20.3 Seconds (9.0-12.0)
[2021-03-15 11:36] LABS: Albumin Level 2.2 gm/dl (3.4-5.0); BUN Creatinine Ratio 11.5 (10-20); Calcium 8.6 mg/dl (8.5-10.1); Creatinine Clr Calc Pharmacy 100.3 ml/min; Est GFR (African American) 92.6 ml/min; Est GFR (Non-African American) 79.9 ml/min; Potassium 3.8 mmol/L (3.5-5.1)
[2021-03-15 11:38] LABS: Albumin Globulin Ratio 0.5 (0.9-2); Bilirubin,Total 0.8 mg/dl (0.2-1); Globulin 4.6 gm/dl (2.5-4.0); Total Protein 6.8 gm/dl (6.4-8.2)
[2021-03-15 11:43] LABS: Anisocytosis Present; Basophils # (auto) 0.01 K/uL (0-0.2); Basophils % (auto) 0.3 %; Eosinophils # (auto) 0.13 K/uL (0-0.5); Eosinophils % (auto) 3.9 %; Immature Granulocytes # (auto) 0.01 K/uL (0.00-0.02); Immature Granulocytes % (auto) 0.3 %; Lymphocytes # (auto) 1.24 K/uL (1.2-3.4); Lymphocytes % (auto) 36.9 %; Microcytosis Present; Monocytes # (auto) 0.39 K/uL (0.11-0.59); Monocytes % (auto) 11.6 %; Neutrophils # (auto) 1.58 K/uL (1.4-6.5); Ovalocytes 1+; Platelet Count 120 K/uL (130-400); Platelet Estimate Decreased (Normal); Polychromasia 1+; Target Cells 2+
--- NOTE | 2021-03-15 12:30 | Discharge Summary ---
Date of Service March 15, 2021 Admission HPI Per Admitting Provider Chivo Herring is a 70 year old medically complex male who presents to the ER with altered mental status and expressive dysphasia. Yesterday his was gone for a lot of the morning and evening and when she came back for dinner she was noticing differences in how he was communicating and he had not taken any of his medications and he wasn't able to test himself for BSG so didn't get any insulin. He also hadn't eaten any of the food she had prepared for him. He appeared generally more confused but mainly expressing himself. Having more word salad, each sentence was formed fine but nonsensical. They were having car troubles so unable to get to the ER yesterday so came today. He has also been calling out for his mother who when he was young. No hallucinations. Hend- eye co-ordination alos a problem. He was hospitalized here in November for new onset atrial flutter In the ER there is concern for a stroke given his expressive dysphasia. CT head and angiograms did not show any significant pathology. He was referred to medicine for admission and ongoing management for altered mental state. Admission Exam Per Admitting Provider Constitutional: WD/WN, vitals as above Eyes: PERRL and EOM intact bilaterally (difficulty follow this command) ENMT: external ear and nose normal, oropharynx normal Cardiovascular: Rate/Rhythm: regular rate and regular rhythm Heart Sounds: no murmur Extremities: + pedal edema (trace b/l) Gastrointestinal (Abdomen): normal bowel sounds, soft, nontender, no hepatosplenomegaly Inspection/Auscultation: + abdomen distended (obese) and normal bowel sounds Musculoskeletal: no cyanosis or clubbing, extremities motor strength 5/5 Skin: no rashes, warm and dry Neurologic: moves all extremities, awake and + confused; no focal motor deficits (no lateralizing deficit) Motor/Sensory: + asterixis (bilaeral hands); no pronator drift Cranial Nerves: PERRL, normal accommodation, EOM intact bilaterally (dificulty ollow his command however, difts back to center from rightwad gaz), normal facial strength, able to elevate shoulders bilaterally, no nystagmus and symmetric palate elevation; + tongue not midline (deviates to right) Coordination: + abnormal [id number] test (slow but equal b/l) Slow to answer disorientation questions. Year - "2019", Month "2019, slow talking answering the wrong questions. Having trouble fining he right words. Location - [place].... Person - he got his 's name first time. Psychiatric: Orientation: alert, oriented to person and oriented to place; + not oriented to time Principal Diagnosis hepatic encephalopathy Discharge Exam General: Well-appearing 70-year-old gentleman who is sitting up in his hospital bed, relaxed, upon my arrival. He converses freely and is fully alert and oriented. Compared to previous days, word finding difficulties is resolved. HEENT: NCAT. Eyes - Sclera are white, anicteric, and without injection. Mouth - MMM with no tonsillar edema or exudates. Cardiac: Normal rate and regular rhythm; S1 and S2 present with no murmurs, rubs, or gallops. Pulmonary: Good respiratory effort with symmetric expansion of the chest. No use of accessory muscles. Lungs were clear to auscultation bilaterally with no crackles or wheezes. Abdominal: Normoactive bowel sounds. Abdomen was soft, nondistended, and non- tender to palpation. No hepatomegaly or splenomegaly. Extremities: Upper and lower extremities are warm and well perfused. Capillary refill assessed in UE was < 3 sec. Psych: Well-developed, well-nourished, appropriately dressed for occasion. Behavior is cooperative and appropriate. Affect is WNL. Insight is appropriate. Discharge Data Allergies Allergy/AdvReac Type Severity Reaction Status Date / Time simvastatin AdvReac Intermediate GI UPSET- Verified 03/12/21 08:55 OK WITH LIPITOR pioglitazone AdvReac Mild GI UPSETS Verified 03/12/21 08:55 spironolactone AdvReac Mild NIPPLES Verified 03/12/21 08:55 HURT Consultations 03/12/21 10:35 ED Decision to Admit Stat 03/12/21 16:31 Consult Neurology Routine Ordered Studies 03/12/21 08:17 CT angio head w con, CT angio neck with con, CT head/brain wo con CLINICAL HISTORY: 70 years-old Male with Stroke Like Symptoms. Acute strokelike symptoms COMPARISON STUDY: Head CT 08/12/2020, brain MRI 04/24/2020 TECHNIQUE: Unenhanced axial CT scan of the brain is performed. Subsequently, following the IV administration of 120 cc of Optiray, CT angiogram of the head and neck was performed from the aortic arch to the skull apex. Images are reviewed in the axial, sagittal, and coronal planes. 3-D MIPS images are created and assessed. IV contrast was administered without complication. All measurements were obtained according to NASCET criteria. A dose lowering technique was utilized adhering to the principles of ALARA. CT DOSE: 3283.94 mGycm (accession [id number]), 1183.66 mGycm (accession [id number]) FINDINGS: CT BRAIN: Motion degraded exam. There is no acute intracranial hemorrhage, midline shift, hydrocephalus, intracranial mass, territorial ischemia or abnormal extra-axial collections. No abnormal intra-axial or extra-axial enhancement. Age-related involutional changes. Cerebral vascular calcifications. Mastoid air cells and middle ear cavities are clear. No calvarial fracture. Paranasal sinuses are clear. CTA OF THE HEAD AND NECK: Streak artifact from sternotomy wires. Three-vessel morphology of the thoracic aortic arch. Patency of the innominate and imaged subclavian arteries. Study is motion degraded. Medial course of the patent common carotid arteries. Atherosclerosis of the carotid bulbs, left greater than right results in less than 50% stenosis bilaterally. Additional chronic plaque of the cavernous and supraclinoid segments of the internal carotid arteries without high-grade stenosis. The visualized middle and anterior cerebral artery branches are patent, however are suboptimally visualized secondary to motion artifact. Dominant right vertebral artery. The left vertebral artery appears to be developmentally diminutive. The visualized vertebral arteries appear patent. Diminutive basilar artery with origin of the posterior cerebral arteries. The basilar and posterior cerebral arteries appear patent. Cerebral venous sinuses appear patent. There is no abnormal intracranial enhancement identified. No pneumothorax. Unremarkable soft tissues. Degenerative changes of the cervical spine. IMPRESSION: 1. Motion degraded exam without acute intracranial abnormality identified. 2. Unremarkable CTA of the head and neck. 03/12/21 09:28 ULTRASOUND RIGHT UPPER QUADRANT ABDOMEN CLINICAL HISTORY: Elevated bilirubin and hepatic transaminases. COMPARISON STUDY: Abdominal CT dated 07/03/2020. TECHNIQUE: Real-time, grayscale, and color flow sonography of the right upper quadrant of the abdomen was performed. Images are reviewed in the transverse and longitudinal planes. The examination is degraded by large body habitus. FINDINGS: Liver: The liver is cirrhotic in morphology and heterogeneous in echotexture. Echotexture is increased suggesting steatosis. There is nodularity of the hepatic surface contour. A hypoechoic focus near the hepatic dome and measures 2 .3 x 1.7 x 2.4 cm. There is no intrahepatic biliary ductal dilatation. The main portal vein is patent. Gallbladder: The gallbladder is gross normal as visualized but not well assessed. The large calcified gallstones seen by CT on 07/03/2020 were not well visualized. There is no gallbladder wall thickening or pericholecystic fluid. A sonographic Garcia's sign is reportedly absent. The common bile duct measures up to 0.5 cm in diameter. Pancreas: Not visualized due to overlying bowel gas. Right kidney: Survey images of the right kidney demonstrate normal size and echotexture. There is no hydronephrosis. Right renal cysts measure up to 5.2 cm. Ascites: None. IMPRESSION: 1. The examination is significantly degraded by large body habitus. 2. The liver is cirrhotic in morphology and shows evidence of steatosis. 3. There is no sonographic evidence of acute cholecystitis. The gallstones seen by CT were not apparent on today's ultrasound. 4. A 2.4 cm lesion in the hepatic dome is unchanged and likely represents a hemangioma when correlated with prior studies. 5. Nonvisualization of the pancreas. 03/12/21 10:23 MRI OF THE BRAIN WITHOUT CONTRAST CLINICAL HISTORY: expressive aphasia ?stroke COMPARISON STUDY: April 24, 2020 FINDINGS: Sagittal T1, axial diffusion images were acquired. This exam is significantly limited due to motion artifact. Sagittal T2, coronal T2 FLAIR, axial T1 and GRE sequence was not performed. Study is incomplete because patient removed coil during exam. No definite intra or extra-axial mass lesions are visualized, Axial diffusion-weighted images reveal no evidence of acute or subacute infarction. There is no evidence of ventricular dilatation. Proton density T2-weighted and FLAIR sequences was not performed. Assessment for flow voids is incomplete due to motion artifact. There is questionable fluid signal within anatomical region of the right maxillary sinus which might represent sinusitis. IMPRESSION: No evidence of restricted diffusion to suggest acute ischemia/infarct. Possible fluid within the right maxillary sinus which might represent sinusitis in appropriate clinical settings. No definite large intracranial mass lesions or midline shift. Significantly limited exam due to motion artifact and uncooperative patient as detailed above. Hospital Course (1) Encephalopathy: Chivo is a 70-year-old male with a notable history of SWIFT cirrhosis (previously deemend not to be a transplant candidate d/t high CV risk - @[facility] [place]), benign hepatic hemangioma > vs. HCC (s/p TACE 01/03/17) - follows with [facility], small esophageal varices,obesity ALDO, pAF, previous cauda equina, HTN, CAD s/p CABG x 2, ID-T2DM, DM, depression, pancytopenia who was admitted for encephalopathy, suspected to be secondary to SWIFT cirrhosis with possible contribution from recent amiodarone initiation. 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 Given his dysmetabolic profile, suspect acute encephalopathy is founded by SWIFT cirrhosis, with acute worsening from amiodarone (started in 11/2020 for AFib w/ RVR) * Work-up as follows: - LFTs: Mild transaminitis with AST ~140, ALT ~100, ALP ~200, TBili 1 throughout stay - Admission ammonia: elevated to 75 - Function: Na 140 - 145 / Cr 0.79 / INR 2.1 on d/c / Alb 2.2 on d/c - Brain MRI: Limited by motion artifact, but no obvious acute processes - CTA-H/N: No acute processes, no significant stenosis - Gallbladder US: Steatotic changes within cirrhotic morphology. No gallstones. Stable hemangioma. - TC 163 / LDL 95 / HDL 58 / TG 48 / A1c 6.6% * Neurology consulted: Encephalopathy, aphasia likely secondary to hepatic disease. Continue care plan as below. * Amiodarone started in November. Suspect this is contributory towards the acuity of this hepatic encephalopathy. We will discontinue for now. Given amiodarone's half-life, should continue to see should continue to see therapeutic benefit over the next several weeks. Will require cardiology follow-up as outpatient. * Lactulose 30mg b.i.d. on discharge * Rifaximin 550mg t.i.d. * Continue PT, OT * Extensive conversations RE: SWIFT treatment, dysmetabolism while here. Mr. Herring is very engaged with changing diet, physical activity to achieve these goals. Can consider RD/clinical smoking pipe coater as outpatient to further augment his care / expand care team Chronic Medical Conditions HTN: Continue propranolol, isosorbide, diltiazem, Lisinopril pAF: Continue diltiazem, Warfarin (INR 2-3 goal). Stopped amiodarone on 03/15/21. Rate controlled. Pancytopenia: Chronic, possibly due to ?a-thalassemia. Stable. Monitor Hgb. ALDO: Home CPAP while here CAD: s/p CABG x 3. Continue BP meds. Not on statin or antiplatelet. ID-T2DM with Neuropathy: A1c 6.6 on admission. SSI while here. Code: FULL CODE (2) Paroxysmal atrial flutter: (3) Diabetes: (4) Anemia: (5) HTN (hypertension): (6) Hyperlipidemia: (7) Atrial flutter: (8) Pancytopenia: (9) Chronic systolic CHF (congestive heart failure): (10) Morbid obesity: (11) CAD (coronary artery disease): (12) Depression: (13) Essential (primary) hypertension: (14) PAF (paroxysmal atrial fibrillation): (15) Obstructive sleep apnea of adult: (16) Diabetic peripheral neuropathy: Total Time Total Time Spent Total Time Spent (In Minutes): <30 Discharge Plan Discharge Items Patient Disposition: Home - Self-Care Reason For Visit: ALTERED MENTAL STATE, EXPRESSIVE APHASIA Discharge Diagnosis: hepatic encephalopathy Condition on Discharge: Fair Activity: Per Instructions section Non-emergency contact: Primary Care Provider and Art Educator Call non-emergency contact if: you have any medication questions, your symptoms worsen and your temperature is above 101 Follow-up/Referrals: Wayne Florez, [Primary Care Provider] - Diet: Heart Healthy and Low Sodium (2gm) Addtl Attending Provider Instructions: You were seen in [facility] for evaluation of confusion. Upon arrival here, he underwent several tests to determine the cause of your conf usion. You underwent a thorough work-up, which included multiple imaging scans of your head and blood vessels within your brain and neck, to rule out stroke. Thankfully, there was no evidence of any strokelike process on these exams. Your labs did demonstrate significantly elevated ammonia levels. In summary with pre-existing liver disease, elevated ammonia levels occurring in concert with confusion generally suggest transient liver injury/dysfunction. As the liver is responsible for processing ammonia, when it is not functioning as well as it normally does, ammonia can build up in the blood and resulting confusion. Thankfully, you demonstrated excellent response to ammonia lowering therapies, notably lactulose. Upon your discharge, it will be important to continue these medications to prevent further bouts of confusion from liver disease. As we discussed, your type of liver disease (SWIFT cirrhosis) is caused by fatty/inflammatory changes within the liver over a long period of time. These fatty/inflammatory changes primarily result from metabolic changes within the bodynotably, from things like diabetes, cholesterol, and weight. To treat SWIFT cirrhosis effectively, it is critical to treat its underlying risk factors: the aforementioned diabetes, cholesterol, weight. This is done through changes with lifestyle and optimizing medications. It will be very important to establish and continue healthy eating habits; likewise, achieving some sort of physical activity that gets your heart rate up for 30 minutes, at least 5 times a week, will also be important. Like we discussed in the hospital, it may be worth getting connected with a clinical smoking pipe coater/registered dietitian to aid you with the nutritionally related goals. Please discuss this with your primary care physician more upon your discharge. Effective treatment of fatty/inflammatory changes within the liver can result in noticeable improvements in the liver function and long-term prognosis. Further, we also believe that one of the things that was contributory to your acute liver injury was medication related. Amiodarone, while a wonderful medication for helping to control atrial fibrillation, also has known possible side effects. In some individuals, it can cause liver injury. Without recently you started your amiodarone it is very possible that this is contributory into this episode. Amiodarone sticks around in the blood for several weeks to months following discontinuation. As such, you will still receive its benefits over this timeframe. However, will be very important to follow-up with your sales representative door to door upon discharge to further discuss long-term medication plans to control your atrial fibrillation. Upon your discharge, please follow-up with your primary care physician within 1 week to review this visit and your medications. At that time, please ensure that you have a follow-up arranged with cardiology. Please note the following medication changes - STOP amiodarone - START lactulose 45mL (30g), twice daily In the interim, if you experience any worsening confusion, abdominal pain, shortness of breath, yellowing of the mucous membranes, chest pain, palpitations, shortness of breath, fever, chills, night sweats, or other worrisome symptoms, please seek medical attention immediately. If your symptoms are severe, please report to the ER for evaluation. It was a pleasure taking care of you during your stay here, we wish you all the best in your recovery. Pending Studies at Discharge: No Stand-Alone Forms: [facility], Smoking Cessation Medications and DC Order Prescriptions: New lactulose 20 gram/30 mL Solution 45 ml PO BID 30 Days Qty: 2700 RF: 2 Continued diltiazem HCl 180 mg capsule,extended release 24 hr 180 mg PO QAM Qty: 90 RF: 3 doxycycline monohydrate 100 mg capsule 100 mg PO BIDM Qty: 180 RF: 10 gabapentin 300 mg capsule 300 mg PO TID Qty: 270 RF: 3 omega-3 acid ethyl esters 1 gram capsule 1 cap PO BID Qty: 180 RF: 1 eplerenone 25 mg tablet 25 mg PO QAM 90 Days Qty: 90 RF: 1 (DME) OneTouch Ultra Blue Test Strip Strip See Dose Instructions .ROUTE .MEDSUPPLY Qty: 100 RF: 4 (DME) lancets [OneTouch Delica Lancets] 33 gauge misc See Dose Instructions .ROUTE .MEDSUPPLY Qty: 400 RF: 1 (DME) blood-glucose meter [OneTouch Ultra2 Meter] Misc See Rx Instructions .ROUTE .MEDSUPPLY Qty: 1 RF: 0 duloxetine 60 mg capsule,delayed release(DR/EC) 60 mg PO QAM Qty: 90 RF: 1 bupropion HCl [Wellbutrin SR] 100 mg tablet sustained-release 12 hr 100 mg PO QAM Qty: 90 RF: 1 dutasteride [Avodart] 0.5 mg capsule 0.5 mg PO HS Qty: 90 RF: 1 ezetimibe 10 mg tablet 10 mg PO QPM 90 Days Qty: 90 RF: 1 pantoprazole 40 mg tablet,delayed release (DR/EC) 40 mg PO BID Qty: 180 RF: 1 Xifaxan 550 mg tablet 550 mg PO TID Qty: 270 RF: 1 tamsulosin 0.4 mg capsule 0.4 mg PO HS 90 Days Qty: 90 RF: 3 diclofenac sodium 1 % gel 4 g TOP QID Qty: 100 RF: 1 isosorbide mononitrate 120 mg tablet extended release 24 hr 120 mg PO QPM Qty: 90 RF: 1 propranolol 10 mg tablet 10 mg PO TID Qty: 270 RF: 1 nitroglycerin 0.6 mg tablet, sublingual 0.6 mg Sublingual DIRECTED PRN (Reason: Chest Pain) Qty: 20 RF: 1 Lantus Solostar U-100 Insulin 100 unit/mL (3 mL) insulin pen 8 unit subcut HS 90 Days Qty: 7.2 RF: 1 (DME) CPAP Supplies Misc See Rx Instructions .ROUTE .MEDSUPPLY Qty: 1 RF: 0 (DME) CPAP Machine Misc See Rx Instructions .ROUTE .MEDSUPPLY Qty: 1 RF: 0 (DME) CPAP Supplies Misc See Rx Instructions .ROUTE .MEDSUPPLY Qty: 1 RF: 0 multivitamin tablet 1 tab PO QAM RF: 0 potassium chloride 20 mEq tablet,ER particles/crystals 20 meq PO BID RF: 0 warfarin 7.5 mg tablet 7.5 mg PO 6XWK RF: 0 lisinopril 20 mg tablet 20 mg PO QAM RF: 0 warfarin 5 mg tablet 5 mg PO WK RF: 0 Discontinued lactulose 10 gram/15 mL solution 15 ml PO TID PRN (Reason: constipation) Qty: 3784 RF: 1 amiodarone [Pacerone] 200 mg tablet 200 mg PO BID RF: 0 Discharge Orders: Discharge Order (Routine); Ordered 03/15/21 Ordered By: Tj Brar/Other Patient Handouts: A1C, Nonalcoholic Fatty Liver Disease NAFLD, Hepatic Encephalopathy, Managing Type 2 Diabetes, ED Cirrhosis Admission Data Admit Date/Time: 03/12/21 11:43 Attending Provider: Tj Olvera Admit Provider: Dirk English Primary Care Provider: Wayne Florez Other Providers: Dirk English ; Gianni Espinosa Other Interventions: Discharge Summary Assessment (RN) Last Done: 03/15/21 15:08 Supervising Physician Co-Signing Physician Notes I personally examined the patient and verified all barton points of history and exam, discussed case, and agree with decision making with Dr Jasso Very coherent today. Clear thought process. No new complaints. Asks very good questionsanswered all to the best of my ability. Vitals noted, in general he is awake alert oriented x3 pleasant no distress. HEENT normocephalic atraumatic mucous membranes moist. Breathing unlabored no accessory muscle use good effort. Skin shows no rashes no pallor or icterus. Neuro without focal deficits. Hepatic encephalopathyappears to be cirrhosis driven by metabolic illnesslactulose improving. On further review, concerned that amiodarone may be playing a bit of a "why now" role as far as the onset of hepatic encephalopathythis has been stopped. Discussed with patient however, that major lifestyle change would likely be very helpful for his liver disease even more than stopping the amiodaroneonce again encouraged daily cardiovascular exercise and to shift to more of a Mediterranean kind of a diet. Stable for home. Continue higher dose of lactulose for now, hopefully with being off of amiodarone and lifestyle change, he might be able to start to reduce the dose. A. fibrate controlled, anticoagulated. Given the rather long half-life of amiodarone, I doubt we will need to do anything in the near future to substitute, therefore we will have him follow-up with cardiology. Continue to follow. Otherwise as above.
--- NOTE | 2021-03-15 16:48 | Billing Data ---
Date of Service March 15, 2021 Coding Level of Care Code 03425 OBS Care - Discharge
== END 2021-03-15 16:51 | disposition home or self-care (01) ==
LOC: ED 07:59 → 2N 07:59 → SUATTDRO 11:43 → 2N 16:32 → 3N 03-14 22:54

== ENCOUNTER 2021-11-13 14:49 | Inpatient (IN) ==
--- NOTE | 2021-11-13 15:11 | Emergency Department Note ---
Impression & Plan Acute knee pain DC ED Provider Note HPI: The patient is a 71-year-old male who presents the emergency department after mechanical fall. Patient states that he was utilizing his walker at home the way he normally does when he tried to make a turn and lost his balance and felt a "pop" in his right knee. Patient does not believe that he hit his head. He denies any loss of consciousness. Patient states he is anticoagulated on Coumadin for history of paroxysmal atrial fibrillation. Patient denies any hip pain, on arrival he is HDS, no acute distress but he does have difficulty with extending his R knee secondary to pain. ROS: - MSK: R knee pain s/p fall *10 point review systems was conducted and is otherwise negative unless stated above *Outpatient medications and allergy history reviewed PE: General: Alert, NAD HEENT: Normocephalic, atraumatic Eyes: Extraocular eye movement is intact, no scleral erythema Pulmonary: Clear to auscultation bilaterally, no wheezing Cardio: Regular rate and rhythm GI: Abdomen is soft, nontender : No suprapubic tenderness MSK: Moderate swelling of the R knee without open wound or laceration, limited range of motion secondary to pain, palpable DP pulse in RLE Skin: No evidence of rash Neuro: Alert, no focal deficits Psychiatric: 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 Patient was given IV morphine for pain. Given the extent of the patient's knee pain with negative x-ray I did order CT imaging of the R knee which shows cortical destruction peripherally along the medial aspect of the femoral condyle, also evidence of hemarthrosis consistent with possible impaction type injury / fracture. CT head is negative for any acute bleeding. On my re-assessment patient states his pain is improved following IV morphine. I discussed the CT imaging results with specimen preparation assistant orthopedics, Dr. Westfall, who did review the CT scan on the phone with me. He does not feel this is an emergent surgical case, and recommends partial weight bearing, no knee immobilizer required given patient's size and likely difficulty with tolerated the immobilizer, and close follow up in the office within the next 3-5 days. He feels this may be a soft tissue injury/ligament injury with also superimposed l ongstanding arthritis. I discussed this with the patient and his , we discussed admission for PT/OT and pain control vs. discharge with outpatient follow up. Patient states he prefers d/c with outpatient follow up in the office with orthopedics. He does not want to stay in the hospital. He was prescribed percocet to use as needed for pain and given a home pack, he has a walker to use at home, he will contact ortho for outpatient follow up. His knee swelling has subsided with ice and pain control, INR noted to be subtherapeutic at 1.6. He will follow up with his outpatient providers and orthopedics within 3 to 5 days as advised and he was placed for discharge in stable condition. Diagnosis: 1. Acute R knee injury/pain 2. Subtherapuetic INR Disposition: DC Advised outpatient follow up: - Return to the ED with any new or worsening symptoms - Orthopedics in 3-5 days - PCP in 2-3 Days Clyde Lucas DO Emergency Medicine Past Med/Surg History Medical History Acute confusion Ambulatory dysfunction Anemia Anxiety and depression CAD (coronary artery disease) Cauda equina compression Chronic systolic CHF (congestive heart failure) Cirrhosis of liver not due to alcohol Cyst of kidney, acquired Depression Enlarged prostate Esophageal varices Essential tremor Expressive aphasia Fall from standing GERD (gastroesophageal reflux disease) Gout Hepatic hemangioma HTN (hypertension) Hx of myocardial infarction 1994 Hyperlipidemia Hypertension Internal hemorrhoids Liver failure NOT CANDIDATE FOR LIVER TRANSPLANT - assisted (current) use of anticoagulants warfarin daily Mass of petrous temporal bone Medical marijuana use Morbid obesity BMI 43 Opioid dependence Osteomyelitis of lumbar spine PAF (paroxysmal atrial fibrillation) Pancytopenia Pigmented nevus Pulmonary nodule Seborrheic keratosis Sleep apnea USES CPAP Spinal stenosis of lumbar region (05/15/13) Thyroid nodule Tubular adenoma of colon Type 2 diabetes mellitus Vitamin D deficiency Wide-complex tachycardia Surgical History History of back surgery X3 - 2 FOR FUSION AND LAST TO CLEAN UP INFECTION History of cardiac cath X4 - [facility] [facility] [place] LAST ONE 02/2011 ? [facility] [facility] [place] History of coronary artery bypass graft x 3 X2 - 1993 AND 2010 - [place] History of esophagogastroduodenoscopy (EGD) (~05/29/19) History of heart surgery [place]al [place] [facility] [place] time as [place] History of right knee surgery X4 to repair broken patella Hx of colonoscopy Hx of vasectomy Family History Mother Stroke Father Stroke Aunt Cancer Liver cancer and stomach cancer Other No family history of adverse response to anesthesia No significant family history Denies family history of Colon cancer Ovarian cancer Prostate cancer Myocardial infarction Breast cancer Social History Smoking Status: Former smoker Tobacco Type: Cigarettes Age Quit Using Tobacco: 60; Smoking End Date: 1989; Second Hand Exposure: No; Hx Alcohol Use: No Hx Substance Use: Yes Prescribed Medications: Marijuana Last Used Substance: Days (ago) Last Used Substance Other:: presciption for medicinal marijuana Substance Use Type Other:: medical marijuana Preferred Language: Croatian Communication Ability: Effective Visual Impairment: No Limitations Hearing Ability: Normal Senior Instructor Required: No Beliefs That Will Affect Care: None marital status: Current Living Situation: Spouse current occupational status: retired Other Information That Helps Us Care for You: No Feels Safe at Home: Yes Safety Concerns: Feels Safe At This Time Childhood Exposure to Second-Hand Smoke: Yes Dental Care, Regularly: Yes Physical Activity Frequency: 3-4 Times per Week Seatbelt Use: always Sunscreen Use: Yes Assistive Devices: Cane, Glasses and Walker Allergies Allergies Allergy/AdvReac Type Severity Reaction Status Date / Time simvastatin AdvReac Intermediate GI UPSET- Verified 11/13/21 17:54 OK WITH LIPITOR pioglitazone AdvReac Mild GI UPSETS Verified 11/13/21 17:54 spironolactone AdvReac Mild NIPPLES Verified 11/13/21 17:54 HURT Home Meds Home Medications Medication Instructions Recorded Confirmed multivitamin 1 tab PO QAM 01/23/19 11/13/21 warfarin 7.5 mg tablet 7.5 mg PO [id number] 03/12/21 11/13/21 Previous Rx's Medication Instructions Recorded CPAP Supplies #1 ea 04/26/19 CPAP Supplies #1 ea 10/25/19 CPAP Machine #1 ea 02/08/20 doxycycline monohydrate 100 mg 100 mg PO BIDM #180 cap 08/08/20 capsule gabapentin 300 mg capsule 300 mg PO TID #270 cap 09/24/20 blood-glucose meter (Oneuch #1 ea 11/18/20 Ultra2 Meter) diclofenac sodium 1 % topical gel 4 g TOP QID #100 gm 02/17/21 lactulose 20 gram/30 mL oral 45 ml PO BID 30 Days #2700 ml 03/15/21 solution furosemide 40 mg tablet 40 mg PO QAM #90 tab 03/16/21 isosorbide mononitrate 120 mg 120 mg PO QPM #90 tab 03/16/21 tablet,extended release 24 hr warfarin 5 mg tablet 5 mg PO DAILY #90 tab 03/20/21 diltiazem HCl 180 mg capsule,24 180 mg PO QAM #90 cap 05/21/21 hr,extended release omega-3 acid ethyl esters 1 gram 1 cap PO BID #180 cap 05/21/21 capsule potassium chloride 20 mEq 20 meq PO BID #180 tab 05/21/21 tablet,extended release(part/cryst) insulin glargine 100 unit/mL (3 8 unit SUBCUT HS 90 Days #7.2 ml 07/02/21 mL) subcutaneous pen (Lantus Solostar U-100 Insulin) ezetimibe 10 mg tablet 10 mg PO QPM 90 Days #90 tab 07/06/21 nitroglycerin 0.6 mg sublingual 0.6 mg SUBLINGUAL DIRECTED PRN 07/07/21 tablet #25 tab blood sugar diagnostic #100 ea 08/14/21 lancets 33 gauge (OneTouch [facility] #400 ea 08/14/21 Lancets) lisinopril 20 mg tablet 20 mg PO QAM #90 tab 08/14/21 propranolol 10 mg tablet 10 mg PO TID #270 tab 08/14/21 blood glucose control, normal #1 ea 08/19/21 duloxetine 60 mg capsule,delayed 60 mg PO QAM #90 cap 09/03/21 release eplerenone 25 mg tablet 25 mg PO QAM 90 Days #90 tab 09/03/21 pantoprazole 40 mg tablet,delayed 40 mg PO BID #180 tab 09/03/21 release bupropion HCl 100 mg tablet,12 hr 100 mg PO QAM #90 ea 10/23/21 sustained-release (Wellbutrin SR) dutasteride 0.5 mg capsule 0.5 mg PO HS #90 cap 11/03/21 (Avodart) tamsulosin 0.4 mg capsule 0.4 mg PO HS 90 Days #90 cap 11/03/21 oxycodone-acetaminophen 5 mg-325 1 tab PO Q6H PRN #14 tab 11/13/21 mg tablet (Percocet) Results & Data (ED) Vital Signs Vital Signs - 24 hr 11/13/21 18:30 11/13/21 20:00 11/13/21 21:00 Pulse Rate Pulse Rate [Finger] 78 88 74 Pulse Rhythm [Finger] Pulse Strength [Finger] Respiratory Rate 18 16 18 Respiratory Effort / Characteristics Respiratory Depth Respiratory Pattern Blood Pressure Blood Pressure [Left Arm] 190/113 H 174/93 H 174/93 H Blood Pressure Mean Blood Pressure Mean [Left Arm] 138 120 120 Blood Pressure Position [Left Arm] Pulse Oximetry 99 95 95 Oxygen Delivery Method 11/13/21 22:38 11/13/21 23:32 Pulse Rate 101 H Pulse Rate [Finger] 77 Pulse Rhythm [Finger] Regular Pulse Strength [Finger] Normal Respiratory Rate 18 22 Respiratory Effort / Characteristics Non-Labored Spontaneous Respiratory Depth Normal Respiratory Pattern Regular Blood Pressure 173/117 H Blood Pressure [Left Arm] 197/135 H Blood Pressure Mean 135 Blood Pressure Mean [Left Arm] 155 Blood Pressure Position [Left Arm] Semi-fowlers Pulse Oximetry 97 98 Oxygen Delivery Method Room Air Laboratory Data Result diagrams: 11/14/21 07:02 11/14/21 07:02 Lab Results 11/13/21 11/13/21 11/13/21 Range/Units 15:18 15:18 16:21 WBC 3.36 L (4.8-10.8) K/uL RBC 4.82 (4.7-6.1) M/uL Hgb 10.0 L (14.0-18.0) g/dL Hct 31.5 L (42-52) % MCV 65.4 L (80-100) fL MCH 20.7 L (25-34) pg MCHC 31.7 L (32-36) g/dL RDW Std Deviation 55.1 H (36.4-46.3) fL RDW Coeff of Jt 23.4 H (11.5-14.5) % Plt Count 111 L (130-400) K/uL Immature Gran % (Auto) 0.0 % Neut % (Auto) 49.1 % Lymph % (Auto) 35.7 % [place] % (Auto) 10.7 % Eos % (Auto) 4.2 % Baso % (Auto) 0.3 % Neut # (Auto) 1.65 (1.4-6.5) K/uL Lymph # (Auto) 1.20 (1.2-3.4) K/uL [place] # (Auto) 0.36 (0.11-0.59) K/uL Eos # (Auto) 0.14 (0-0.5) K/uL Baso # (Auto) 0.01 (0-0.2) K/uL Immature Gran # (Auto) 0.00 (0.00-0.02) K/uL Absolute Nucleated RBC 0.02 H (0-0) K/uL Nucleated RBC % (auto) 0.7 % Platelet Estimate Decreased L (Normal) Polychromasia 1+ Hypochromasia Present Target Cells 2+ PT 16.6 H (9.0-12.0) Seconds INR 1.6 H (0.9-1.1) Sodium 142 (136-145) mmol/L Potassium 3.2 L (3.5-5.1) mmol/L Chloride 109 H (98-107) mmol/L Carbon Dioxide 28 (21-32) mmol/L Anion Gap 5 (3-11) BUN 8 (6-23) mg/dl Creatinine 0.63 (0.6-1.4) mg/dl Est Cr Clr Drug Dosing 155.1 ml/min Est GFR ( Amer) 116.5 ml/min Est GFR (Non-Af Amer) 100.5 ml/min BUN/Creatinine Ratio 12.7 (10-20) Glucose 118 H (70-99(Fasting)) mg/dl Calcium 8.3 L (8.5-10.1) mg/dl Total Bilirubin 1.1 H (0.2-1.0) mg/dl AST 76 H (13-39) U/L ALT 38 (7-52) U/L Alkaline Phosphatase 204 H (34-104) U/L Total Protein 6.4 (6.0-8.3) gm/dl Albumin 2.9 L (3.4-5.0) gm/dl Globulin 3.5 (2.5-4.0) gm/dl Albumin/Globulin Ratio 0.8 L (0.9-2) SARS-CoV-2, RNA, NAAT (NEGATIVE) 11/13/21 Range/Units 23:30 WBC (4.8-10.8) K/uL RBC (4.7-6.1) M/uL Hgb (14.0-18.0) g/dL Hct (42-52) % MCV (80-100) fL MCH (25-34) pg MCHC (32-36) g/dL RDW Std Deviation (36.4-46.3) fL RDW Coeff of Jt (11.5-14.5) % Plt Count (130-400) K/uL Immature Gran % (Auto) % Neut % (Auto) % Lymph % (Auto) % [place] % (Auto) % Eos % (Auto) % Baso % (Auto) % Neut # (Auto) (1.4-6.5) K/uL Lymph # (Auto) (1.2-3.4) K/uL [place] # (Auto) (0.11-0.59) K/uL Eos # (Auto) (0-0.5) K/uL Baso # (Auto) (0-0.2) K/uL Immature Gran # (Auto) (0.00-0.02) K/uL Absolute Nucleated RBC (0-0) K/uL Nucleated RBC % (auto) % Platelet Estimate (Normal) Polychromasia Hypochromasia Target Cells PT (9.0-12.0) Seconds INR (0.9-1.1) Sodium (136-145) mmol/L Potassium (3.5-5.1) mmol/L Chloride (98-107) mmol/L Carbon Dioxide (21-32) mmol/L Anion Gap (3-11) BUN (6-23) mg/dl Creatinine (0.6-1.4) mg/dl Est Cr Clr Drug Dosing ml/min Est GFR ( Amer) ml/min Est GFR (Non-Af Amer) ml/min BUN/Creatinine Ratio (10-20) Glucose (70-99(Fasting)) mg/dl Calcium (8.5-10.1) mg/dl Total Bilirubin (0.2-1.0) mg/dl AST (13-39) U/L ALT (7-52) U/L Alkaline Phosphatase (34-104) U/L Total Protein (6.0-8.3) gm/dl Albumin (3.4-5.0) gm/dl Globulin (2.5-4.0) gm/dl Albumin/Globulin Ratio (0.9-2) SARS-CoV-2, RNA, NAAT NEGATIVE (NEGATIVE) Administered Medications Acetaminophen (Acetaminophen 325 Mg Tab) 650 mg PO Q4H PRN PRN Reason: pain/fever Stop: 12/14/21 02:07 Last Admin: 11/14/21 07:24 Dose: 650 mg Documented by: [id number] Bupropion HCl (Bupropion Sr 100 Mg Tabcr) 100 mg PO [facility] Stop: 12/14/21 08:59 Last Admin: 11/14/21 09:05 Dose: 100 mg Documented by: [id number] Diclofenac Sodium (Diclofenac Sod 1% Gel 100 Gm Tube) 4 gm EXT QID [facility] Stop: 12/14/21 08:59 Last Admin: 11/14/21 13:30 Dose: 4 gm Documented by: [id number] Admin: 11/14/21 07:15 Dose: 4 gm Documented by: [id number] Diltiazem HCl (Diltiazem Er 180 Mg Capcr) 180 mg PO [facility] Stop: 12/14/21 08:59 Last Admin: 11/14/21 09:04 Dose: 180 mg Documented by: [id number] Doxycycline Hyclate (Doxycycline Hyclate 100 Mg Cap) [facility] Stop: 12/14/21 07:59 Last Admin: 11/14/21 09:05 Dose: 100 mg Documented by: [id number] Duloxetine HCl (Duloxetine Hcl 60 Mg Cap) 60 mg PO [facility] Stop: 12/14/21 08:59 Last Admin: 11/14/21 09:05 Dose: 60 mg Documented by: [id number] Furosemide (Furosemide 40 Mg Tab) 40 mg PO [facility] Stop: 12/14/21 08:59 Last Admin: 11/14/21 09:05 Dose: 40 mg Documented by: [id number] Gabapentin (Gabapentin 300 Mg Cap) 300 mg PO TID [facility] Stop: 12/14/21 08:59 Last Admin: 11/14/21 13:30 Dose: 300 mg Documented by: [id number] Admin: 11/14/21 09:05 Dose: 300 mg Documented by: [id number] Hydromorphone HCl (Hydromorphone Inj 0.5 Mg/0.5 Ml Syr) 0.5 mg IV Q6H PRN PRN Reason: Pain Stop: 11/28/21 09:32 Last Admin: 11/14/21 11:33 Dose: 0.5 mg Documented by: [id number] Lactulose (Lactulose Syrup 30 Gm/45 Ml Udp) 30 gm PO BID [facility] Stop: 12/14/21 08:59 Last Admin: 11/14/21 09:04 Dose: 30 gm Documented by: [id number] Lisinopril (Lisinopril 20 Mg Tab) 20 mg PO QAM [facility] Stop: 12/14/21 08:59 Last Admin: 11/14/21 09:04 Dose: 20 mg Documented by: [id number] Magnesium Oxide (Magnesium Oxide 400 Mg Tab) 400 mg PO BID@1000,2200 [facility] Stop: 12/14/21 09:59 Last Admin: 11/14/21 10:50 Dose: 400 mg Documented by: [id number] Ondansetron HCl (Ondansetron Inj 2 Mg/Ml 2 Ml Vial) 4 mg IV Q6H PRN PRN Reason: Nausea Stop: 12/14/21 02:07 Last Admin: 11/14/21 10:50 Dose: 4 mg Documented by: [id number] Pantoprazole Sodium (Pantoprazole 40 Mg Tab) 40 mg PO BID [facility] Stop: 12/14/21 08:59 Last Admin: 11/14/21 09:04 Dose: 40 mg Documented by: [id number] Potassium Chloride (Potassium Chloride Crtab 20 Meq Tabcr) 20 meq PO BID [facility] Stop: 12/14/21 08:59 Last Admin: 11/14/21 09:04 Dose: 20 meq Documented by: [id number] Propranolol HCl (Propranolol Hcl 10 Mg Tab) 10 mg PO TID [facility] Stop: 12/14/21 08:59 Last Admin: 11/14/21 13:30 Dose: 10 mg Documented by: [id number] Admin: 11/14/21 09:05 Dose: 10 mg Documented by: [id number] Discontinued Medications Gadobutrol (Gadobutrol 65ml Vial) 13.5 ml IV ONCE ONE Stop: 11/14/21 12:17 Last Admin: 11/14/21 12:16 Dose: 13.5 ml Documented by: [id number] Hydromorphone HCl (Hydromorphone Inj 1 Mg/Ml Syringe) 1 mg IV NOW STA Stop: 11/13/21 22:37 Last Admin: 11/13/21 22:41 Dose: 1 mg Documented by: [id number] Hydromorphone HCl (Hydromorphone Inj 1 Mg/Ml Syringe) 1 mg IV NOW ONE Stop: 11/14/21 03:25 Last Admin: 11/14/21 03:52 Dose: 1 mg Documented by: [id number] Labetalol HCl (Labetalol Hcl Iv 5 Mg/Ml 20ml) 10 mg IV NOW STA Stop: 11/13/21 22:04 Last Admin: 11/13/21 22:39 Dose: 10 mg Documented by: [id number] Cosigned by: [id number] Miscellaneous (Avodart~Order Awaiting Action) 1 ea N/A QS [facility] Stop: 12/14/21 07:59 Last Admin: 11/14/21 14:52 Dose: Not Given Documented by: [id number] Admin: 11/14/21 09:05 Dose: 1 ea Documented by: [id number] Miscellaneous (Eplerenone~Order Awaiting Action) 1 ea N/A QS PHIL Stop: 12/14/21 07:59 Last Admin: 11/14/21 14:52 Dose: Not Given Documented by: [id number] Admin: 11/14/21 09:05 Dose: 1 ea Documented by: [id number] Morphine Sulfate (Morphine Sulfate 4 Mg/Ml 1 Ml Carp\\Vial) 4 mg IV NOW STA Stop: 11/13/21 16:12 Last Admin: 11/13/21 16:21 Dose: 4 mg Documented by: [id number] Morphine Sulfate (Morphine Sulfate 2 Mg/Ml Carp) Confirm Administered Dose 2 mg .ROUTE .STK-MED ONE Stop: 11/13/21 18:22 Last Admin: 11/13/21 18:23 Dose: 2 mg Documented by: [id number] Morphine Sulfate (Morphine Sulfate 2 Mg/Ml Carp) 2 mg IV NOW STA Stop: 11/13/21 19:10 Last Admin: 11/13/21 19:11 Dose: Not Given Documented by: [id number] Morphine Sulfate (Morphine Sulfate Ir 15 Mg Tab (Immediate Release)) 15 mg PO Q4 PRN PRN Reason: Pain Stop: 11/28/21 09:31 Last Admin: 11/14/21 09:51 Dose: 15 mg Documented by: [id number] Oxycodone/Acetaminophen (Percocet 5/325mg Homepack) 1 homepack PO UD ONE Stop: 11/13/21 21:17 Last Admin: 11/13/21 21:30 Dose: 1 homepack Documented by: [id number] Potassium Chloride (Potassium Chloride Crtab 20 Meq Tabcr) 40 meq PO NOW ONE Stop: 11/14/21 04:42 Last Admin: 11/14/21 05:21 Dose: 40 meq Documented by: [id number] Potassium Chloride (Potassium Chloride Crtab 20 Meq Tabcr) 40 meq PO NOW STA Stop: 11/14/21 09:40 Last Admin: 11/14/21 09:51 Dose: 40 meq Documented by: [id number] Imaging Data Radiologist's Impression: Knee X-Ray 11/13/21 15:02 RIGHT KNEE 2 VIEWS CLINICAL HISTORY: Fall with right knee pain. FINDINGS: AP and crosstable lateral views of the right knee are compared to study dated 06/28/2013. The skeletal structures are osteopenic. No fracture is seen. There is advanced degenerative narrowing in the lateral compartment with bony sclerosis and large marginal osteophytes. Milder degenerative change is seen in the medial and patellofemoral compartments. There is a large joint effusion. Patellar enthesophytes are observed. Soft tissue edema is present around the knee. Surgical clips are seen posteriorly. IMPRESSION: 1. Soft tissue swelling and large joint effusion with no fracture identified. 2. Osteopenia and degenerative change as above. This has significantly progressed as compared to 06/28/2013. Electronically signed by: Ronal Brady M.D. 11/13/2021 5:[address] 11/13/21 15:03 CT SCAN OF THE BRAIN WITHOUT IV CONTRAST CLINICAL HISTORY: Fall. COMPARISON STUDY: CT of the brain dated 03/12/2021 TECHNIQUE: Unenhanced axial CT scan of the brain is performed from the vertex to the skull base. A dose lowering technique was utilized adhering to the principles of ALARA. CT DOSE: 773.57 mGy.cm FINDINGS: Brain parenchyma: There is age-related involutional change noting mild subcortical and periventricular microangiopathic disease. There is no hemorrhage, mass effect, or evidence of acute territorial ischemia by CT criteria. A chronic lacunar infarct is noted in the right cerebellar hemisphere. Harvey-white matter differentiation is preserved. No extra-axial fluid collection is seen. Ventricles, sulci, cisterns: Prominent secondary to involutional change. Intracranial vasculature: There is atherosclerotic calcification of the cavernous carotid arteries. Calvarium: The skeletal structures are osteopenic. No depressed calvarial fracture is identified. Sinuses and mastoids: The visualized paranasal sinuses are clear. The mastoid air cells are well pneumatized. Orbits: The bony orbits are grossly intact. IMPRESSION: There is no hemorrhage, mass effect, or evidence of acute territorial ischemia by CT criteria. ACT 112: Negative or not required by law. Electronically signed by: Ronal Brady M.D. 11/13/2021 4:15 PM Hip/Pelvis X-Ray 11/13/21 16:11 SINGLE VIEW PELVIS; 2 VIEWS RIGHT HIP; 2 VIEWS LEFT HIP CLINICAL HISTORY: Fall. FINDINGS: 2 AP views the pelvis with AP and frog-leg views of the right and left hips are correlated with pelvic CT dated 09/09/2021. The skeletal structures are osteopenic. There is no radiographic evidence of acute fracture involving the hips or bony pelvis. Mild to moderate degenerative change and joint space narrowing is seen in the hips. Degenerative sclerosis is noted in the sacroiliac joints. Lumbosacral fusion hardware is partially visualized. The overlying soft tissues are within normal limits. Surgical clips project over the scrotum. IMPRESSION: No acute bony abnormality is identified. Electronically signed by: Ronal Brady M.D. 11/13/2021 5:[address] 11/13/21 19:09 CT SCAN OF THE RIGHT KNEE WITHOUT IV CONTRAST CLINICAL HISTORY: Fall. Right knee pain and swelling. COMPARISON STUDY: Radiographs of the right knee performed the same day 11/13/2021. TECHNIQUE: CT scan of the right knee is performed from the distal femur to the proximal tibia and fibula. Images are reviewed in the axial, sagittal, and coronal planes. IV contrast was not administered for this examination. 3-D reformats are created and assessed. A dose lowering technique was utilized adhering to the principles of ALARA. CT DOSE: 745.22 mGy.cm FINDINGS: The skeletal structures are osteopenic. There is cortical disruption with small bony fragments seen peripherally along the the medial femoral condyle on axial image #168. This likely represents an impaction type fracture. No additional findings are concerning for acute fracture. There is tricompartmental degenerative joint space narrowing, with chondrocalcinosis seen in both the medial and lateral compartments. There is mild offset of the knee joint with lateral subluxation of the tibia. There is a complex joint effusion which likely represents hemarthrosis. There is no clear evidence of fat within the joint space. There are patellar enthesophytes with small calcified joint bodies. A s oft tissue hematoma overlies the medial aspect of the knee as seen on axial image #26 of 78. This measures approximately 7 x 8.5 x 3 cm. Significant prepatellar soft tissue edema is noted. There is generalized atrophy of the regional musculature. Atherosclerotic calcification is observed in the regional arteries. Surgical clips are present around the knee. IMPRESSION: 1. There is cortical disruption/destruction seen peripherally along the medial femoral condyle with tiny adjacent bone fragments and overlying soft tissue hematoma. This likely represents an impaction type injury/fracture. Although considered less likely, infection could appear similar and clinical correlation will be essential. 2. No additional findings are concerning for acute fracture. 3. There is a complex/hyperdense joint effusion which likely represents hemarthrosis. There is no clear evidence of fat within the joint space. 4. There is mild lateral subluxation of the tibia at the knee joint. This could be on a posttraumatic or degenerative basis and clinical correlation will be required. 5. Prepatellar soft tissue edema is noted, with milder soft tissue edema throughout the right lower extremity. ACT 112: Negative or not required by law. Electronically signed by: Ronal Brady M.D. 11/13/2021 8:19 PM Discharge Plan Visit Data Chief Complaint: Fall Stated Complaint: FALL, LEG INJURY ED Provider: Jaxson Reardon Discharge Problem: Acute knee pain Patient Disposition: Admitted As Inpatient Condition: Good Discharge Instructions Interventions: ED Discharge Assessment Last Done: 11/14/21 01:41 Discharge Problem: Acute knee pain Qualifiers: Laterality: right Qualified Code(s): M25.561 - Pain in right knee
[2021-11-13 15:44] LABS: Mean Corpuscular Hgb Conc 31.7 g/dL (32-36); Nucleated RBC # (auto) 0.02 K/uL (0-0); Nucleated RBC % (auto) 0.7 %
[2021-11-13 15:47] LABS: Hematocrit (blood only) 31.5 % (42-52); Mean Corpuscular Hemoglobin 20.7 pg (25-34); Mean Corpuscular Volume 65.4 fL (80-100); RDW Coefficient of Variation 23.4 % (11.5-14.5); RDW Standard Deviation 55.1 fL (36.4-46.3); Red Blood Count 4.82 M/uL (4.7-6.1); White Blood Count 3.36 K/uL (4.8-10.8)
[2021-11-13 15:58] LABS: Albumin Globulin Ratio 0.8 (0.9-2); Albumin Level 2.9 gm/dl (3.4-5.0); BUN Creatinine Ratio 12.7 (10-20); Bilirubin,Total 1.1 mg/dl (0.2-1.0); Calcium 8.3 mg/dl (8.5-10.1); Creatinine Clr Calc Pharmacy 155.1 ml/min; Est GFR (African American) 116.5 ml/min; Est GFR (Non-African American) 100.5 ml/min; Globulin 3.5 gm/dl (2.5-4.0); Potassium 3.2 mmol/L (3.5-5.1); Total Protein 6.4 gm/dl (6.0-8.3)
[2021-11-13] MEDS ORDERED: MoRPHine SULFATE 4 MG/ML 1 ML CARP\\VIAL IV STA (16:11)
--- NOTE | 2021-11-13 16:16 | CT Scan Report ---
CT SCAN OF THE BRAIN WITHOUT IV CONTRAST CLINICAL HISTORY: Fall. COMPARISON STUDY: CT of the brain dated 03/12/2021 TECHNIQUE: Unenhanced axial CT scan of the brain is performed from the vertex to the skull base. A do se lowering technique was utilized adhering to the principles of ALARA. CT DOSE: 773.57 mGy.cm FINDINGS: Brain parenchyma: There is age-related involutional change noting mild subcortical and periventricula r microangiopathic disease. There is no hemorrhage, mass effect, or evidence of acute territorial isc hemia by CT criteria. A chronic lacunar infarct is noted in the right cerebellar hemisphere. Harvey-whi te matter differentiation is preserved. No extra-axial fluid collection is seen. Ventricles, sulci, cisterns: Prominent secondary to involutional change. Intracranial vasculature: There is atherosclerotic calcification of the cavernous carotid arteries. Calvarium: The skeletal structures are osteopenic. No depressed calvarial fracture is identified. Sinuses and mastoids: The visualized paranasal sinuses are clear. The mastoid air cells are well pneu matized. Orbits: The bony orbits are grossly intact. IMPRESSION: There is no hemorrhage, mass effect, or evidence of acute territorial ischemia by CT selene de guzman. ACT 112: Negative or not required by law. Electronically signed by: Ronal Brady M.D. 11/13/2021 4:15 PM
[2021-11-13 16:28] LABS: Basophils # (auto) 0.01 K/uL (0-0.2); Basophils % (auto) 0.3 %; Eosinophils # (auto) 0.14 K/uL (0-0.5); Eosinophils % (auto) 4.2 %; Hypochromasia Present; Lymphocytes % (auto) 35.7 %; Monocytes # (auto) 0.36 K/uL (0.11-0.59); Monocytes % (auto) 10.7 %; Neutrophils # (auto) 1.65 K/uL (1.4-6.5); Neutrophils % (auto) 49.1 %; Platelet Count 111 K/uL (130-400); Platelet Estimate Decreased (Normal); Polychromasia 1+; Target Cells 2+
[2021-11-13 16:53] LABS: INR 1.6 (0.9-1.1); Prothrombin Time 16.6 Seconds (9.0-12.0)
--- NOTE | 2021-11-13 17:25 | XRay Report ---
RIGHT KNEE 2 VIEWS CLINICAL HISTORY: Fall with right knee pain. FINDINGS: AP and crosstable lateral views of the right knee are compared to study dated 06/28/2013. Th e skeletal structures are osteopenic. No fracture is seen. There is advanced degenerative narrowing i n the lateral compartment with bony sclerosis and large marginal osteophytes. Milder degenerative ernie nge is seen in the medial and patellofemoral compartments. There is a large joint effusion. Patellar enthesophytes are observed. Soft tissue edema is present around the knee. Surgical clips are seen pos teriorly. IMPRESSION: 1. Soft tissue swelling and large joint effusion with no fracture identified. 2. Osteopenia and degenerative change as above. This has significantly progressed as compared to 06/28. Electronically signed by: Ronal Brady M.D. 11/13/2021 5:22 PM
--- NOTE | 2021-11-13 17:39 | XRay Report ---
SINGLE VIEW PELVIS; 2 VIEWS RIGHT HIP; 2 VIEWS LEFT HIP CLINICAL HISTORY: Fall. FINDINGS: 2 AP views the pelvis with AP and frog-leg views of the right and left hips are correlated with pelvic CT dated 09/09/2021. The skeletal structures are osteopenic. There is no radiographic evid ence of acute fracture involving the hips or bony pelvis. Mild to moderate degenerative change and chuck int space narrowing is seen in the hips. Degenerative sclerosis is noted in the sacroiliac joints. Loretta mbosacral fusion hardware is partially visualized. The overlying soft tissues are within normal limit s. Surgical clips project over the scrotum. IMPRESSION: No acute bony abnormality is identified. Electronically signed by: Ronal Brady M.D. 11/13/2021 5:38 PM
[2021-11-13] MEDS ORDERED: MoRPHine SULFATE 2 MG/ML CARP ONE (18:21)
[2021-11-13] MEDS ORDERED: MoRPHine SULFATE 2 MG/ML CARP IV STA (19:09)
--- NOTE | 2021-11-13 20:20 | CT Scan Report ---
CT SCAN OF THE RIGHT KNEE WITHOUT IV CONTRAST CLINICAL HISTORY: Fall. Right knee pain and swelling. COMPARISON STUDY: Radiographs of the right knee performed the same day 11/13/2021. TECHNIQUE: CT scan of the right knee is performed from the distal femur to the proximal tibia and fib andrés. Images are reviewed in the axial, sagittal, and coronal planes. IV contrast was not administered for this examination. 3-D reformats are created and assessed. A dose lowering technique was utilized adhering to the principles of ALARA. CT DOSE: 745.22 mGy.cm FINDINGS: The skeletal structures are osteopenic. There is cortical disruption with small bony fragme nts seen peripherally along the the medial femoral condyle on axial image #168. This likely represent s an impaction type fracture. No additional findings are concerning for acute fracture. There is tric ompartmental degenerative joint space narrowing, with chondrocalcinosis seen in both the medial and l ateral compartments. There is mild offset of the knee joint with lateral subluxation of the tibia. Th ere is a complex joint effusion which likely represents hemarthrosis. There is no clear evidence of f at within the joint space. There are patellar enthesophytes with small calcified joint bodies. A soft tissue hematoma overlies the medial aspect of the knee as seen on axial image #26 of 78. This measur es approximately 7 x 8.5 x 3 cm. Significant prepatellar soft tissue edema is noted. There is general ized atrophy of the regional musculature. Atherosclerotic calcification is observed in the regional a rteries. Surgical clips are present around the knee. IMPRESSION: 1. There is cortical disruption/destruction seen peripherally along the medial femoral condyle with t iny adjacent bone fragments and overlying soft tissue hematoma. This likely represents an impaction t ype injury/fracture. Although considered less likely, infection could appear similar and clinical cor relation will be essential. 2. No additional findings are concerning for acute fracture. 3. There is a complex/hyperdense joint effusion which likely represents hemarthrosis. There is no bety ar evidence of fat within the joint space. 4. There is mild lateral subluxation of the tibia at the knee joint. This could be on a posttraumatic or degenerative basis and clinical correlation will be required. 5. Prepatellar soft tissue edema is noted, with milder soft tissue edema throughout the right lower e xtremity. ACT 112: Negative or not required by law. Electronically signed by: Ronal Brady M.D. 11/13/2021 8:19 PM
[2021-11-13] MEDS ORDERED: PERCOCET 5/325MG HOMEPACK PO ONE (21:16)
[2021-11-13] MEDS ORDERED: LABETALOL HCL IV 5 MG/ML 20ML IV STA (22:03)
[2021-11-13] MEDS ORDERED: HYDROmorphone INJ 1 MG/ML SYRINGE IV STA (22:36)
--- NOTE | 2021-11-13 22:37 | Emergency Department Note ---
ED Visit Note ED Physician Sign Out Note: See 11-year-old gentleman with a history of left knee arthritis from previous issues decades ago arrives for evaluation of left knee pain and fall initially evaluated by Dr. Lucas and had extensive work-up. Patient has been having issues with ambulation and did have a fall onto his left knee today. CT head was negative. CT left knee revealed hemarthrosis with questionable distal femur fracture. Initially plan was to be discharged the due to patient's inability to ambulate he was placed back in the bed and I reevaluated the patient. His examination he is quite uncomfortable and has significant hypertension with systolic blood pressure 220s. He was given Dilaudid IV, labetalol IV, and was discussed with hospitalist. Patient is agreeable to hospitalization for OT/PT eval and further evaluation. Jaxson Reardon MD : Acute knee pain Qualifiers: Laterality: right Qualified Code(s): M25.561 - Pain in right knee
--- NOTE | 2021-11-13 23:26 | History & Physical Report ---
Date of Service November 13, 2021 Assessment & Plan (1) Ambulatory dysfunction: Plan: Chivo Herring ia a 70 yo male w/ complicated PMHx including DM2, paroxysmal aFib, depression, anxiety, low back pain/chronic osteomyelitis of lumbar spine, chronic microcytic anemia, chronic liver failure w/ cirrhosis managed by GI through GI at [facility], CAD s/p CABG x3 in 1993 and again in 2010, NSTEMI on 08/12/20, BPH with LUTS, hypertension, GERD with esophageal varices, hyperaldost eronism, venous insufficiency with hypomagnesemia, and morbid obesity admitted to the hospital 11/13/21 for ambulatory dysfunction and weakness s/p fall. Ambulatory dysfunction and R sided weakness s/p fall - Patient with progressively worsening R sided weakness and ambulatory dysfunction over the past several weeks - Unable to be d/c from ER due to ambulatory dysfunction - Due to unilateral weakness, progressive, over the past several weeks, further evaluation is warranted with MRI brain - Fall precautions - PT/OT ordered Right knee pain - Right knee XR 11/13/21: Soft tissue swelling and large joint effusion with no fracture identified. Osteopenia and degenerative change as above. This has significantly progressed as compared to 06/28/2013. - Right knee CT 11/13/21: There is cortical disruption/destruction seen peripherally along the medial femoral condyle with tiny adjacent bone fragments and overlying soft tissue hematoma. This likely represents an impaction type injury/fracture. Although considered less likely, infection could appear similar and clinical correlation will be essential. No additional findings are concerning for acute fracture. There is a complex/hyperdense joint effusion which likely represents hemarthrosis. There is no clear evidence of fat within the joint space. There is mild lateral subluxation of the tibia at the knee joint. This could be on a posttraumatic or degenerative basis and clinical correlation will be required. Prepatellar soft tissue edema is noted, with milde r soft tissue edema throughout the right lower extremity. - Pelvis/hip XR 11/13/21: no acute bony abnormality - Dilaudid 1mg IV ordered for pain on admission - Tylenol 650mg q4h prn for pain - PT/OT ordered as above - Coumadin held in setting of potential hemarthrosis - Will consult ortho due to possible fracture and hemarthrosis Hypokalemia - K at 3.2 on admission - Replete w/ 40 mEq - Given cardiac hx, goal K > 4 and Mag > 2 - Recheck BMP and mag in AM Chronic Conditions Atrial fibrillation, on chronic anticoagulation with warfarin: On admission, INR 1.6. Home warfarin is being held in setting of hemarthrosis Microcytic anemia: Chronic. Likely due to alpha thalassemia. On admission: Hgb 10.0, Hct 31.5, MCV 65.4 Diabetes: Last A1c 6.5% on 10/27/21; continue home Lantus; DM2 diet Hypertension: Continue home isosorbide mononitrate, diltiazem, propranolol, and lisinopril Depression: Continue home wellbutrin and cymbalta; TSH ordered. Encourage close f/u in outpatient setting. CHF: Continue home eplerenone and lasix BPH: Continue home dutasteride and flomax. Recent cystoscopy 11/10/21; continue to follow with urology in outpatient setting. Hyperlipidemia: Continue home ezetimibe Liver cirrhosis: Continue home lactulose. ? Xifaxan compliance. 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: (8) Type 2 diabetes mellitus: (9) PAF (paroxysmal atrial fibrillation): (10) BPH loc w urin obs/LUTS: History of Present Illness Chief Complaint: ambulatory dysfunction Primary Care Provider: DO Chivo Jacobs ia a 70 yo male w/ complicated PMHx including DM2, paroxysmal aFib, depression, anxiety, low back pain, chronic anemia, chronic liver failure w/ cirrhosis managed by GI through GI at [facility], CAD s/p CABG x3 in 1993 and again in 2010, NSTEMI on 08/12/20, BPH with LUTS, hypertension, GERD with esophageal varices, hyperaldosteronism, venous insufficiency with hypomagnesemia, and morbid obesity who presented to the emergency department today s/p fall. Patient states that for the past 2-3 weeks, he has had progressively worsening "balance problems" and unilateral right sided weakness of both his right arm and right leg. Patient denies weakness on the left side of the body. notes that he typically ambulates independently or with a cane but about 3 weeks ago he became more dependent on the cane and then 5-6 days ago, he began to use a walker due to the worsening weakness. Patient has been dependent on the walker for the past 5-6 days. Around 1230 today, he was attempting to walk into the bathroom, with the walker, when he fell to the ground. Patient did not hit his head nor did he have LOC. He did hit his right knee and has had pain and swelling of the right knee since the fall. Patient lives at home with his . He reports 12 steps to get into the house/onto the main level. He lives on the main level. Is independent with ADLs at baseline. While in the ER, patient had a head CT that was negative for acute intracranial abnormality. A hip/pelvis XR showed no acute bony abnormality. A right knee XR showed "Soft tissue swelling and large joint effusion with no fracture identified. Osteopenia and degenerative change as above. This has significantly progressed as compared to 06/28/2013." Right knee CT showed medial femoral condyle cortical disruption/destruction consistent with impaction injury/fracture as well as complex/hyperdense joint effusion likely representing hemarthrosis. Patient was set up for discharge from ED but unfortunately was not able to ambulate due to weakness; thus, he is admitted for ambulatory dysfun ction and further PT/OT evaluation. Additionally, to note, patient states that for the past several weeks he has had worsening depression/anxiety. No specific precipitating factors or recent stressors. Patient states that he has been crying daily. Has been compliant with Wellbutrin and Cymbalta. Patient denies recent illness including no fever, chills, CP, weight changes, abd pain, nausea, vomiting, or urinary symptoms. Allergies Allergy/AdvReac Type Severity Reaction Status Date / Time simvastatin AdvReac Intermediate GI UPSET- Verified 11/13/21 17:54 OK WITH LIPITOR pioglitazone AdvReac Mild GI UPSETS Verified 11/13/21 17:54 spironolactone AdvReac Mild NIPPLES Verified 11/13/21 17:54 HURT Home Medications Medication Instructions Recorded Confirmed Type multivitamin 1 tab PO QAM 01/23/19 11/13/21 History CPAP Supplies #1 ea 04/26/19 10/09/21 Rx CPAP Supplies #1 ea 10/25/19 10/09/21 Rx CPAP Machine #1 ea 02/08/20 10/09/21 Rx doxycycline monohydrate 100 mg 100 mg PO BIDM #180 cap 08/08/20 11/13/21 Rx capsule gabapentin 300 mg capsule 300 mg PO TID #270 cap 09/24/20 11/13/21 Rx blood-glucose meter (OneTouch #1 ea 11/18/20 10/09/21 Rx Ultra2 Meter) diclofenac sodium 1 % topical gel 4 g TOP QID #100 gm 02/17/21 11/13/21 Rx warfarin 7.5 mg tablet 7.5 mg PO [id number] 03/12/21 11/13/21 History lactulose 20 gram/30 mL oral 45 ml PO BID 30 Days #2700 ml 03/15/21 11/13/21 Rx solution furosemide 40 mg tablet 40 mg PO QAM #90 tab 03/16/21 11/13/21 Rx isosorbide mononitrate 120 mg 120 mg PO QPM #90 tab 03/16/21 11/13/21 Rx tablet,extended release 24 hr warfarin 5 mg tablet 5 mg PO DAILY #90 tab 03/20/21 11/13/21 Rx diltiazem HCl 180 mg capsule,24 180 mg PO QAM #90 cap 05/21/21 11/13/21 Rx hr,extended release omega-3 acid ethyl esters 1 gram 1 cap PO BID #180 cap 05/21/21 11/13/21 Rx capsule potassium chloride 20 mEq 20 meq PO BID #180 tab 05/21/21 11/13/21 Rx tablet,extended release(part/cryst) insulin glargine 100 unit/mL (3 8 unit SUBCUT HS 90 Days #7.2 ml 07/02/21 11/13/21 Rx mL) subcutaneous pen (Lantus Solostar U-100 Insulin) ezetimibe 10 mg tablet 10 mg PO QPM 90 Days #90 tab 07/06/21 11/13/21 Rx nitroglycerin 0.6 mg sublingual 0.6 mg SUBLINGUAL DIRECTED PRN 07/07/21 11/13/21 Rx tablet #25 tab blood sugar diagnostic #100 ea 08/14/21 10/09/21 Rx lancets 33 gauge (OneTouch Delica #400 ea 08/14/21 10/09/21 Rx Lancets) lisinopril 20 mg tablet 20 mg PO QAM #90 tab 08/14/21 11/13/21 Rx propranolol 10 mg tablet 10 mg PO TID #270 tab 08/14/21 11/13/21 Rx blood glucose control, normal #1 ea 08/19/21 10/09/21 Rx duloxetine 60 mg capsule,delayed 60 mg PO QAM #90 cap 09/03/21 11/13/21 Rx release eplerenone 25 mg tablet 25 mg PO QAM 90 Days #90 tab 09/03/21 11/13/21 Rx pantoprazole 40 mg tablet,delayed 40 mg PO BID #180 tab 09/03/21 11/13/21 Rx release bupropion HCl 100 mg tablet,12 hr 100 mg PO QAM #90 ea 10/23/21 11/13/21 Rx sustained-release (Wellbutrin SR) dutasteride 0.5 mg capsule 0.5 mg PO HS #90 cap 11/03/21 11/13/21 Rx (Avodart) tamsulosin 0.4 mg capsule 0.4 mg PO HS 90 Days #90 cap 11/03/21 11/13/21 Rx oxycodone-acetaminophen 5 mg-325 1 tab PO Q6H PRN #14 tab 11/13/21 Rx mg tablet (Percocet) Past Med/Surg History Medical History Acute confusion Ambulatory dysfunction Anemia Anxiety and depression CAD (coronary artery disease) Cauda equina compression Chronic systolic CHF (congestive heart failure) Cirrhosis of liver not due to alcohol Cyst of kidney, acquired Depression Enlarged prostate Esophageal varices Essential tremor Expressive aphasia Fall from standing GERD (gastroesophageal reflux disease) Gout Hepatic hemangioma HTN (hypertension) Hx of myocardial infarction 1994 Hyperlipidemia Hypertension Internal hemorrhoids Liver failure NOT CANDIDATE FOR LIVER TRANSPLANT - 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 [facility] [place] History of coronary artery bypass graft x 3 X2 - 1993 AND 2011 - [place] History of esophagogastroduodenoscopy (EGD) (~05/29/19) History of heart surgery atrial septal deficit repair @ [facility] [place] at same time as CABG History of right knee surgery X4 to repair broken patella Hx of colonoscopy Hx of vasectomy Family History Mother Stroke Father Stroke Aunt Cancer Liver cancer and stomach cancer Other No family history of adverse response to anesthesia No significant family history Denies family history of Colon cancer Ovarian cancer Prostate cancer Myocardial infarction Breast cancer Social History Smoking Status: Former smoker Tobacco Type: Cigarettes Age Quit Using Tobacco: 60; Smoking End Date: 1989; Second Hand Exposure: No; Hx Alcohol Use: No Hx Substance Use: Yes Prescribed Medications: Marijuana Last Used Substance: Days (ago) Last Used Substance Other:: presciption for medicinal marijuana Substance Use Type Other:: medical marijuana Preferred Language: Trinidadian Communication Ability: Effective Visual Impairment: No Limitations Hearing Ability: Normal 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 Obese male, well developed. Vital signs reviewed. EYES: PERRLA. EOMI. Anicteric sclerae. HENT: Moist mucous membranes. No pharyngeal erythema or exudates. Nares patent. RESPIRATORY: Clear to auscultation bilaterally. No wheezing, rales, or rhonchi. CARDIOVASCULAR: Regular rate and rhythm. No murmurs. 2-3+ BLE edema. ABDOMEN: Soft. Obese abdomen that is non-tender. Normal bowel sounds. EXTREMITIES: Right knee with mild tenderness to palpation; there is a small blister and ecchymosis over the medial aspect of the knee. ROM limited secondary to pain. SKIN: Warm, dry. NEUROLOGIC: Awake. A/O x4. No focal neurological deficits. Normal speech. PSYCHIATRIC: Cooperative. Appropriate mood and affect. Results & Data Results & Data ([facility]) Vital Signs (Past 12 Hours) Vital Signs Temp Pulse Pulse Resp BP BP Pulse Ox 11/13/21 22:38 77 18 197/135 H 97 11/13/21 21:00 74 18 174/93 H 95 11/13/21 20:00 88 16 174/93 H 95 11/13/21 18:30 78 18 190/113 H 99 11/13/21 15:03 98 11/13/21 14:57 100 H 16 173/89 H 99 11/13/21 14:41 37.0 C 100 H 16 173/89 H 99 Laboratory Results 11/13/21 11/13/21 11/13/21 Range/Units 16:21 15:18 15:18 WBC 3.36 L (4.8-10.8) K/uL RBC 4.82 (4.7-6.1) M/uL Hgb 10.0 L (14.0-18.0) g/dL Hct 31.5 L (42-52) % MCV 65.4 L (80-100) fL MCH 20.7 L (25-34) pg MCHC 31.7 L (32-36) g/dL RDW Std Deviation 55.1 H (36.4-46.3) fL RDW Coeff of Jt 23.4 H (11.5-14.5) % Plt Count 111 L (130-400) K/uL Immature Gran % (Auto) 0.0 % Neut % (Auto) 49.1 % Lymph % (Auto) 35.7 % [place] % (Auto) 10.7 % Eos % (Auto) 4.2 % Baso % (Auto) 0.3 % Neut # (Auto) 1.65 (1.4-6.5) K/uL Lymph # (Auto) 1.20 (1.2-3.4) K/uL [place] # (Auto) 0.36 (0.11-0.59) K/uL Eos # (Auto) 0.14 (0-0.5) K/uL Baso # (Auto) 0.01 (0-0.2) K/uL Immature Gran # (Auto) 0.00 (0.00-0.02) K/uL Absolute Nucleated RBC 0.02 H (0-0) K/uL Nucleated RBC % (auto) 0.7 % Platelet Estimate Decreased L (Normal) Polychromasia 1+ Hypochromasia Present Target Cells 2+ PT 16.6 H (9.0-12.0) Seconds INR 1.6 H (0.9-1.1) Sodium 142 (136-145) mmol/L Potassium 3.2 L (3.5-5.1) mmol/L Chloride 109 H (98-107) mmol/L Carbon Dioxide 28 (21-32) mmol/L Anion Gap 5 (3-11) BUN 8 (6-23) mg/dl Creatinine 0.63 (0.6-1.4) mg/dl Est Cr Clr Drug Dosing 155.1 ml/min Est GFR ( Amer) 116.5 ml/min Est GFR (Non-Af Amer) 100.5 ml/min BUN/Creatinine Ratio 12.7 (10-20) Glucose 118 H (70-99(Fasting)) mg/dl Calcium 8.3 L (8.5-10.1) mg/dl Total Bilirubin 1.1 H (0.2-1.0) mg/dl AST 76 H (13-39) U/L ALT 38 (7-52) U/L Alkaline Phosphatase 204 H (34-104) U/L Total Protein 6.4 (6.0-8.3) gm/dl Albumin 2.9 L (3.4-5.0) gm/dl Globulin 3.5 (2.5-4.0) gm/dl Albumin/Globulin Ratio 0.8 L (0.9-2) Diagnostic Findings [facility], [place] [phone] XRay Report Patient:CHIVO HERRING Admit Date:11/13/21 MR#:[id number] Address1:[address] Acct ID:[id number] Address2: Date:1950 [facility] Zip:[place] [address] Age:71 Location:ED Sex:M Room/Bed: Att Phy: Diagnosis:FALL, LEG INJURY Emmie Phy:Wayne Florez DO Service Date:11/13/21 Fam Phy: Interpreting Phy:Ronal Brady MDAdmit Phy: Ordering Phy:Clyde Lucas DO cc: ~ RIGHT KNEE 2 VIEWS CLINICAL HISTORY: Fall with right knee pain. FINDINGS: AP and crosstable lateral views of the right knee are compared to study dated 06/28/2013. The skeletal structures are osteopenic. No fracture is seen. There is advanced degenerative narrowing in the lateral compartment with bony sclerosis and large marginal osteophytes. Milder degenerative change is s een in the medial and patellofemoral compartments. There is a large joint effusion. Patellar enthesophytes are observed. Soft tissue edema is present around the knee. Surgical clips are seen posteriorly. IMPRESSION: 1. Soft tissue swelling and large joint effusion with no fracture identified. 2. Osteopenia and degenerative change as above. This has significantly progressed as compared to 06/28/2013. Electronically signed by: Ronal Brady M.D. 11/13/2021 5:22 PM Dictated:11/13/211719 Transcribed: 11/13/211719 [place], [place] [phone] CT Scan Report Patient:CHIVO HERRING Admit Date:11/13/21 MR#:[id number] Address1:[address] Acct ID:[id number] Address2: Date:1950 [facility] Zip:[place] [address] Age:71 Location:ED Sex:M Room/Bed: Att Phy: Diagnosis:FALL, LEG INJURY Emmie Phy:Wayne Florez DO Service Date:11/13/21 Fam Phy: Interpreting Phy:Ronal Brady MDAdmit Phy: Ordering Phy:Clyde Lucas DO cc: ~ CT SCAN OF THE BRAIN WITHOUT IV CONTRAST CLINICAL HISTORY: Fall. COMPARISON STUDY: CT of the brain dated 03/12/2021 TECHNIQUE: Unenhanced axial CT scan of the brain is performed from the vertex to the skull base. A dose lowering technique was utilized adhering to the principles of ALARA. CT DOSE: 773.57 mGy.cm FINDINGS: Brain parenchyma: There is age-related involutional change noting mild subcortical and periventricular microangiopathic disease. There is no hemorrhage, mass effect, or evidence of acute territorial ischemia by CT criteria. A chronic lacunar infarct is noted in the right cerebellar hemisphere. Harvey-white matter differentiation is preserved. No extra-axial fluid collection is seen. Ventricles, sulci, cisterns: Prominent secondary to involutional change. Intracranial vasculature: There is atherosclerotic calcification of the cavernous carotid arteries. Calvarium: The skeletal structures are osteopenic. No depressed calvarial fracture is identified. Sinuses and mastoids: The visualized paranasal sinuses are clear. The mastoid air cells are well pneumatized. Orbits: The bony orbits are grossly intact. IMPRESSION: There is no hemorrhage, mass effect, or evidence of acute territorial ischemia by CT criteria. ACT 112: Negative or not required by law. Electronically signed by: Ronal Brady M.D. 11/13/2021 4:15 PM Dictated:11/13/211611 Transcribed: 06/03/22 1612 [place], [place] [phone] XRay Report Patient:CHIVO HERRING Admit Date:11/13/21 MR#:[id number] Address1:[address] [place] [address] Acct ID:[id number] Address2: Date:1950 [facility] Zip:[place] [address] Age:71 Location:ED Sex:M Room/Bed: Att Phy: Diagnosis:FALL, LEG INJURY Emmie Phy:Wayne Florez DO Service Date:11/13/21 Fam Phy: Interpreting Phy:Ronal Brady MDAdmit Phy: Ordering Phy:Clyde Lucas DO cc: ~ SINGLE VIEW PELVIS; 2 VIEWS RIGHT HIP; 2 VIEWS LEFT HIP CLINICAL HISTORY: Fall. FINDINGS: 2 AP views the pelvis with AP and frog-leg views of the right and left hips are correlated with pelvic CT dated 09/09/2021. The skeletal structures are osteopenic. There is no radiographic evidence of acute fracture involving the hips or bony pelvis. Mild to moderate degenerative change and joint space narrowing is seen in the hips. Degenerative sclerosis is noted in the sacroiliac joints. Lumbosacral fusion hardware is partially visualized. The overlying soft tissues are within normal limits. Surgical clips project over the scrotum. IMPRESSION: No acute bony abnormality is identified. Electronically signed by: Ronal Brady M.D. 11/13/2021 5:38 PM Dictated:11/13/211735 Transcribed: 11/13/211735 [place], [place] [phone] CT Scan Report Patient:CHIVO HERRING Admit Date:11/13/21 MR#:[id number] Address1:[address] [place] [address] Acct ID:[id number] Address2: Date:1950 [facility] Zip:[place] [address] Age:71 Location:ED Sex:M Room/Bed: Att Phy: Diagnosis:FALL, LEG INJURY Emmie Phy:Wayne Florez DO Service Date:11/13/21 [facility] Phy: Interpreting Phy:Ronal Brady MDAdmit Phy: Ordering Phy:Clyde Lucas DO cc: ~ CT SCAN OF THE RIGHT KNEE WITHOUT IV CONTRAST CLINICAL HISTORY: Fall. Right knee pain and swelling. COMPARISON STUDY: Radiographs of the right knee performed the same day 11/13/2021. TECHNIQUE: CT scan of the right knee is performed from the distal femur to the proximal tibia and fibula. Images are reviewed in the axial, sagittal, and coronal planes. IV contrast was not administered for this examination. 3-D reformats are created and assessed. A dose lowering technique was utilized adhering to the principles of ALARA. CT DOSE: 745.22 mGy.cm FINDINGS: The skeletal structures are osteopenic. There is cortical disruption with small bony fragments seen peripherally along the the medial femoral condyle on axial image #168. This likely represents an impaction type fracture. No additional findings are concerning for acute fracture. There is tricompartmental degenerative joint space narrowing, with chondrocalcinosis seen in both the medial and lateral compartments. There is mild offset of the knee joint with lateral subluxation of the tibia. There is a complex joint effusion which likely represents hemarthrosis. There is no clear evidence of fat within the joint space. There are patellar enthesophytes with small calcified joint bodies. A soft tissue hematoma overlies the medial aspect of the knee as seen on axial image #26 of 78. This measures approximately 7 x 8.5 x 3 cm. Significant prepatellar soft tissue edema is noted. There is generalized atrophy of the regional musculature. Atherosclerotic calcification is observed in the regional arteries. Surgical clips are present around the knee. IMPRESSION: 1. There is cortical disruption/destruction seen peripherally along the medial femoral condyle with tiny adjacent bone fragments and overlying soft tissue hematoma. This likely represents an impaction type injury/fracture. Although considered less likely, infection could appear similar and clinical correlation will be essential. 2. No additional findings are concerning for acute fracture. 3. There is a complex/hyperdense joint effusion which likely represents hemarthrosis. There is no clear evidence of fat within the joint space. 4. There is mild lateral subluxation of the tibia at the knee joint. This could be on a posttraumatic or degenerative basis and clinical correlation will be required. 5. Prepatellar soft tissue edema is noted, with milder soft tissue edema throughout the right lower extremity. ACT 112: Negative or not required by law. Electronically signed by: Ronal rBady M.D. 11/13/2021 8:19 PM Dictated:11/13/211943 Transcribed: 11/13/211943 Supervising Physician Co-Signing Physician Notes Patient seen and examined, chart reviewed, case discussed with Dr. Sommer and I agree with the assessment and plan as above Resident Activity Tracking Resident Involvement: Resident Care Provided Care Provided: [facility] (1) Acute knee pain Laterality: right Qualified Code(s): M25.561 - Pain in right knee
[2021-11-14] MEDS ORDERED: WARFARIN SOD 7.5 MG TAB PO SCH ×2 (02:08)
[2021-11-14] MEDS ORDERED: ALUMINUM/MAGNESIUM SUSP 30 ML UDC PO PRN (02:08)
[2021-11-14] MEDS ORDERED: ACETAMINOPHEN 325 MG TAB PO PRN (02:08)
[2021-11-14] MEDS ORDERED: GLUCOSE 10 TABS/TUBE PO PRN (02:45)
[2021-11-14] MEDS ORDERED: GLUCOSE 40% GEL 15 GM TUBE PO PRN (02:45)
[2021-11-14] MEDS ORDERED: GLUCAGON FOR INJ 1 MG VIAL IM PRN (02:45)
[2021-11-14] MEDS ORDERED: DEXTROSE 50% 50 ML SYRINGE IV PRN (02:45)
[2021-11-14] MEDS ORDERED: CARBOHYDRATES FOR HYPOGLYCEMIA PO PRN (02:45)
[2021-11-14] MEDS ORDERED: HYDROmorphone INJ 1 MG/ML SYRINGE IV ONE (03:24)
--- NOTE | 2021-11-14 03:50 | Billing Data ---
Date of Service November Coding Level of Care Code 78245 Initial Inpt Care Lvl 3
[2021-11-14] MEDS ORDERED: POTASSIUM CHLORIDE CRTAB 20 MEQ TABCR PO ONE (04:41)
[2021-11-14] MEDS: DICLOFENAC SOD 1% GEL 100 GM TUBE EXT SCH ×4 (07:15→21:06)
[2021-11-14 07:46] LABS: Hematocrit (blood only) 33.3 % (42-52); Hemoglobin 10.3 g/dL (14.0-18.0); Mean Corpuscular Hemoglobin 20.5 pg (25-34); Mean Corpuscular Hgb Conc 30.9 g/dL (32-36); Mean Corpuscular Volume 66.2 fL (80-100); RDW Coefficient of Variation 23.7 % (11.5-14.5); RDW Standard Deviation 56.4 fL (36.4-46.3); Red Blood Count 5.03 M/uL (4.7-6.1); White Blood Count 5.03 K/uL (4.8-10.8)
--- NOTE | 2021-11-14 08:02 | Orthopedic Consultation ---
Date of Service November 14, 2021 Assessment & Plan (1) Acute knee pain: He has a large area of ecchymosis on the anterior medial aspect of his right knee. There is also a deformity around the right knee and is unable to straighten it. I called his and talk to her as well about the history with the right knee. This has been going on for years. He had multiple surgeries on his right knee in the when he injured it playing basketball. He has not been able to fully extend his knee for years. He ambulates mostly with a cane but ambulates very minimally because of his knee and his back. Most of the findings on the x-ray and the CAT scan appear to be chronic. The ecchymosis of course is not but the deformity may be chronic, its difficult to say. I talked about an MRI, however, he has difficulty lying still for an MRI due to his back pain, and I would not be able to extend his knee for the MRI imaging. In any case, the only surgical procedure that would be beneficial for this knee would likely be a hinged knee replacement. At this point, given the swelling of his knee and his current medical condition, he is not a candidate for any type of knee replacement surgery. I think we should treat this conservatively and give a chance for the ecchymosis and swelling to calm down. Once everything is calm down we can have a better idea of what were dealing with and what is chronic and what is more acute. He does not need the knee immobilizer. He can be weightbearing as tolerated with physical therapy. Orthopedics will continue to follow. History of Present Illness Reason for Consultation: Right knee pain. Requesting Physician: . Attending Physician: DO Chivo Landon is a pleasant 71-year-old male who has a long history with his right knee. He initially injured it playing basketball in the . He had several surgeries to his right knee. Eventually he had the superior pole of his patella removed. He has had a flexed knee for years. He ambulates with a cane mostly due to his knee and his back. His knee is always been painful. He has not sought out any further treatment for his right knee. With regards to his back he has had several lumbar surgeries. He is still dealing with a lot of back pain. He walks with a forward flexed posture with a cane because of his back and his right knee. Unfortunately he has been having weakness on his right side. He has had several falls in the past 10 days. Most recent fall caused him to bang his right knee against the door jam. This caused some swelling of his right knee. He was brought to the emergency room and admitted to the hospitalist service. They obtained an MRI of his brain. X-rays of his knee showed a lot of chronic conditions. CT scan of his knee also showed confirm the chronic conditions and a questionable impaction fracture. Orthopedics was consulted to evaluate and treat. Allergies Allergy/AdvReac Type Severity Reaction Status Date / Time simvastatin AdvReac Intermediate GI UPSET- Verified 11/13/21 17:54 OK WITH LIPITOR pioglitazone AdvReac Mild GI UPSETS Verified 11/13/21 17:54 spironolactone AdvReac Mild NIPPLES Verified 11/13/21 17:54 HURT Home Medications Medication Instructions Recorded Confirmed Type multivitamin 1 tab PO QAM 01/23/19 11/13/21 History CPAP Supplies #1 ea 04/26/19 10/09/21 Rx CPAP Supplies #1 ea 10/25/19 10/09/21 Rx CPAP Machine #1 ea 02/08/20 10/09/21 Rx doxycycline monohydrate 100 mg 100 mg PO BIDM #180 cap 08/08/20 11/13/21 Rx capsule gabapentin 300 mg capsule 300 mg PO TID #270 cap 09/24/20 11/13/21 Rx blood-glucose meter (OneTouch #1 ea 11/18/20 10/09/21 Rx Ultra2 Meter) diclofenac sodium 1 % topical gel 4 g TOP QID #100 gm 02/17/21 11/13/21 Rx warfarin 7.5 mg tablet 7.5 mg PO 6XWK 03/12/21 11/13/21 History lactulose 20 gram/30 mL oral 45 ml PO BID 30 Days #2700 ml 03/15/21 11/13/21 Rx solution furosemide 40 mg tablet 40 mg PO QAM #90 tab 03/16/21 11/13/21 Rx isosorbide mononitrate 120 mg 120 mg PO QPM #90 tab 03/16/21 11/13/21 Rx tablet,extended release 24 hr warfarin 5 mg tablet 5 mg PO DAILY #90 tab 03/20/21 11/13/21 Rx diltiazem HCl 180 mg capsule,24 180 mg PO QAM #90 cap 05/21/21 11/13/21 Rx hr,extended release omega-3 acid ethyl esters 1 gram 1 cap PO BID #180 cap 05/21/21 11/13/21 Rx capsule potassium chloride 20 mEq 20 meq PO BID #180 tab 05/21/21 11/13/21 Rx tablet,extended release(part/cryst) insulin glargine 100 unit/mL (3 8 unit SUBCUT HS 90 Days #7.2 ml 07/02/2109/01 Rx mL) subcutaneous pen (Lantus Solostar U-100 Insulin) ezetimibe 10 mg tablet 10 mg PO QPM 90 Days #90 tab 07/06/21 11/13/21 Rx nitroglycerin 0.6 mg sublingual 0.6 mg SUBLINGUAL DIRECTED PRN 07/07/21 11/13/21 Rx tablet #25 tab blood sugar diagnostic #100 ea 08/14/21 10/09/21 Rx lancets 33 gauge (OneTouch Delica #400 ea 08/14/21 10/09/21 Rx Lancets) lisinopril 20 mg tablet 20 mg PO QAM #90 tab 08/14/21 11/13/21 Rx propranolol 10 mg tablet 10 mg PO TID #270 tab 08/14/21 11/13/21 Rx blood glucose control, normal #1 ea 08/19/21 10/09/21 Rx duloxetine 60 mg capsule,delayed 60 mg PO QAM #90 cap 09/03/21 11/13/21 Rx release eplerenone 25 mg tablet 25 mg PO QAM 90 Days #90 tab 09/03/21 11/13/21 Rx pantoprazole 40 mg tablet,delayed 40 mg PO BID #180 tab 09/03/21 11/13/21 Rx release bupropion HCl 100 mg tablet,12 hr 100 mg PO QAM #90 ea 10/23/21 11/13/21 Rx sustained-release (Wellbutrin SR) dutasteride 0.5 mg capsule 0.5 mg PO HS #90 cap 11/03/21 11/13/21 Rx (Avodart) tamsulosin 0.4 mg capsule 0.4 mg PO HS 90 Days #90 cap 11/03/21 11/13/21 Rx oxycodone-acetaminophen 5 mg-325 1 tab PO Q6H PRN #14 tab 11/13/21 Rx mg tablet (Percocet) Past Med/Surg History Medical History Acute confusion Ambulatory dysfunction Anemia Anxiety and depression CAD (coronary artery disease) Cauda equina compression Chronic systolic CHF (congestive heart failure) Cirrhosis of liver not due to alcohol Cyst of kidney, acquired Depression Enlarged prostate Esophageal varices Essential tremor Expressive aphasia Fall from standing GERD (gastroesophageal reflux disease) Gout Hepatic hemangioma HTN (hypertension) Hx of myocardial infarction 1994 Hyperlipidemia Hypertension Internal hemorrhoids Liver failure NOT CANDIDATE FOR LIVER TRANSPLANT - senior living (current) use of anticoagulants warfarin daily Mass of petrous temporal bone Medical marijuana use Morbid obesity BMI 43 Opioid dependence Osteomyelitis of lumbar spine PAF (paroxysmal atrial fibrillation) Pancytopenia Pigmented nevus Pulmonary nodule Seborrheic keratosis Sleep apnea USES CPAP Spinal stenosis of lumbar region (05/15/13) Thyroid nodule Tubular adenoma of colon Type 2 diabetes mellitus Vitamin D deficiency Wide-complex tachycardia Surgical History History of back surgery X3 - 2 FOR FUSION AND LAST TO CLEAN UP INFECTION History of cardiac cath X4 - [facility] - LAST ONE 02/2011 ? [facility] [place] History of coronary artery bypass graft x 3 X2 - 1993 AND 2010 - [place] History of esophagogastroduodenoscopy (EGD) (~05/29/19) History of heart surgery atrial septal deficit repair @ [facility] [place] 1993 at same time as CABG History of right knee surgery X4 to repair broken patella Hx of colonoscopy Hx of vasectomy Family History Mother Stroke Father Stroke Aunt Cancer Liver cancer and stomach cancer Other No family history of adverse response to anesthesia No significant family history Denies family history of Colon cancer Ovarian cancer Prostate cancer Myocardial infarction Breast cancer Social History Smoking Status: Former smoker Tobacco Type: Cigarettes Age Quit Using Tobacco: 60; Smoking End Date: 1989; Second Hand Exposure: No; Hx Alcohol Use: No Hx Substance Use: Yes Prescribed Medications: Marijuana Last Used Substance: Days (ago) Last Used Substance Other:: presciption for medicinal marijuana Substance Use Type Other:: medical marijuana Preferred Language: Norwegian Communication Ability: Effective Visual Impairment: No Limitations Hearing Ability: Normal Biology Tutor Required: No Beliefs That Will Affect Care: None marital status: Current Living Situation: Spouse current occupational status: retired Other Information That Helps Us Care for You: No Feels Safe at Home: Yes Safety Concerns: Feels Safe At This Time Childhood Exposure to Second-Hand Smoke: Yes Dental Care, Regularly: Yes Physical Activity Frequency: 3-4 Times per Week Seatbelt Use: always Sunscreen Use: Yes Assistive Devices: Cane, Glasses and Walker Review of Systems All systems reviewed & are unremarkable except as noted in HPI & below. Physical Exam On physical examination of his right knee, there is some deformity. He has previous scars from previous surgeries. There is a lot of swelling on the anterior medial aspect of the small blister that is forming. He does have ecchymosis in the area. I am able to straighten his knee to about 40 degrees. He is unable to straighten it beyond that. He is dealing with a lot of knee ashwini n. Constitutional WD/WN, vitals as above Eyes PERRL, conjunctivae normal, anicteric sclerae ENMT external ear and nose normal, oropharynx normal Neck trachea midline, no thyromegaly Respiratory normal respiratory effort Cardiovascular RRR, no murmur, no edema Gastrointestinal (Abdomen) normal bowel sounds, soft, nontender, no hepatosplenomegaly Psychiatric A+Ox3, euthymic affect Results & Data Results & Data Laboratory Results . Diagnostic Findings X-rays of his right knee show advanced osteoarthritis. There is lateral translation of the tibia on the femur. CT scan of the right knee confirms the osteoarthritis. There is joint space narrowing and osteophyte formation. There is also posterior lateral translation of the tibia on the femur. The superior pole of the patella is missing. PG Care Time/CCT Total # of Minutes Spent Total Time Spent with Patient: Total time spent is greater than 50% in coordination of care (as documented) at patient's floor/unit and/or counseling patient: Coding Level of Care Code 28603 Inpt Consult Level 4 Diagnoses Acute knee pain M25.561 Laterality: right (1) Acute knee pain Laterality: right Qualified Code(s): M25.561 - Pain in right knee
[2021-11-14 08:20] LABS: Calcium 8.3 mg/dl (8.5-10.1); Magnesium 1.6 mg/dl (1.7-2.4); Potassium 3.1 mmol/L (3.5-5.1)
[2021-11-14 08:21] LABS: Platelet Count 104 K/uL (130-400); Platelet Estimate Decreased (Normal)
[2021-11-14 08:26] LABS: BUN Creatinine Ratio 9.4 (10-20); Creatinine Clr Calc Pharmacy 152.7 ml/min; Est GFR (African American) 115.8 ml/min; Est GFR (Non-African American) 99.9 ml/min
[2021-11-14] MEDS ORDERED: LACTULOSE SYRUP 30 GM/45 ML UDP PO SCH (09:00)
[2021-11-14] MEDS: POTASSIUM CHLORIDE CRTAB 20 MEQ TABCR PO SCH ×2 (09:04→21:05)
[2021-11-14] MEDS: dilTIAZem ER 180 MG CAPCR PO SCH (09:04)
[2021-11-14] MEDS: PANTOprazole 40 MG TAB PO SCH ×2 (09:04→21:04)
[2021-11-14] MEDS: lisinopril 20 MG TAB PO SCH (09:04)
[2021-11-14] MEDS: buPROPion SR 100 MG TABCR PO SCH (09:05)
[2021-11-14] MEDS: DULoxetine HCL 60 MG CAP PO SCH (09:05)
[2021-11-14] MEDS: PROPRANOLOL HCL 10 MG TAB PO SCH ×3 (09:05→21:04)
[2021-11-14] MEDS: GABAPENTIN 300 MG CAP PO SCH ×3 (09:05→21:03)
[2021-11-14] MEDS: DOXYCYCLINE HYCLATE 100 MG CAP PO SCH ×2 (09:05→16:47)
[2021-11-14] MEDS: FUROSEMIDE 40 MG TAB PO SCH (09:05)
[2021-11-14] MEDS ORDERED: MoRPHine SULFATE IR 15 MG TAB (IMMEDIATE RELEASE) PO PRN (09:32)
[2021-11-14] MEDS ORDERED: HYDROmorphone INJ 0.5 MG/0.5 ML SYR IV PRN (09:33)
[2021-11-14] MEDS ORDERED: POTASSIUM CHLORIDE CRTAB 20 MEQ TABCR PO STA (09:39)
[2021-11-14] MEDS: ONDANSETRON INJ 2 MG/ML 2 ML VIAL IV PRN (10:50)
[2021-11-14] MEDS: MAGNESIUM OXIDE 400 MG TAB PO SCH ×2 (10:50→21:04)
[2021-11-14] MEDS ORDERED: GADOBUTROL 65ML VIAL IV ONE (12:16)
--- NOTE | 2021-11-14 12:45 | Magnetic Resonance Report ---
MR brain wo/w con HISTORY: 71 years-old Male balance prob; unilateral R side weakness x3 weeks acute strokelike sympto ms COMPARISON: Brain MRI 03/12/2021 TECHNIQUE: Multiplanar multisequence MRI of the brain was obtained both with and without the use of 1 3.5 cc Gadavist FINDINGS: The v belt inspector localizer images demonstrate no gross extracranial abnormality. No restricted diffusion. No acute intracranial hemorrhage, midline shift, abnormal extra-axial collection, hydrocephalus or intr acranial mass. No pathologic blooming artifact. Mild scattered T2/FLAIR hyperintense foci throughout the white matter are suggestive of probable chronic microvascular ischemic disease. Mild involutional changes. Motion degraded exam. The cerebral venous sinuses and major arterial flow voids appear patent. Mastoid air cells and parana burt sinuses are clear. The skull, orbits and soft tissues are unremarkable. IMPRESSION: Motion degraded exam. No acute intracranial abnormality identified, specifically no acute or subacute infarct. ACT 112: Negative or not required by law. The above report was generated using voice recognition software. It may contain grammatical, syntax o r spelling errors. Electronically signed by: Jairon Clark M.D. 11/14/2021 12:42 PM
--- NOTE | 2021-11-14 14:27 | Hospitalist Progress Note ---
Date of Service November 14, 2021 Assessment & Plan (1) Ambulatory dysfunction: Plan: Chivo Herring ia a 70 yo male w/ complicated PMHx including DM2, paroxysmal aFib, depression/ anxiety, low back pain/chronic osteomyelitis of lumbar spine, chronic microcytic anemia, chronic liver failure w/ cirrhosis managed by GI through GI at [facility], CAD s/p CABG x3 in 1993 and again in 2010, NSTEMI on 08/12/20, BPH with LUTS, hypertension, GERD with esophageal varices, hyperaldost eronism, venous insufficiency with hypomagnesemia, and morbid obesity admitted to the hospital 11/13/21 for ambulatory dysfunction and weakness s/p fall. Ambulatory dysfunction and R sided weakness s/p fall - Patient with progressively worsening R sided weakness and ambulatory dysfunction over the past several weeks - Etiology is uncertain - Brain MRI and Head CT showed no evidence of stroke (however the former was motion degraded) - near vasovagal event secondary to blood pooling (ie hepatic congestion) due to underlying cirrhosis is possible - underlying diabetic neuropathy with superimposed deconditioning certainly increase propensity to fall - Fall precautions - PT/OT ordered, anticipate need for rehab Right knee pain - Right knee XR 11/13/21: Soft tissue swelling and large joint effusion with no fracture identified. - Right knee CT 11/13/21: Showing evidence of impact type injury/fracture and hemarthrosis. - Ortho consulted: acute swelling secondary to fall makes sorting out acute vs. chronic changes difficult. No further intervention until swelling goes down. - Coumadin held in setting of potential hemarthrosis - pain regimen ordered: Tylenol front line (< 3 grams per day) agent given concurrent cirrhosis. Narcotics for severe pain with prolonged intervals Liver Cirrhosis - history of - likely source of pancytopenia + elevated AST - avoid NSAIDs Hypokalemia - K at 3.2 on admission - Mag also low at 1.7 - Replacement ordered - Given cardiac hx, goal K > 4 and Mag > 2 - Recheck BMP and mag in AM Chronic Conditions Atrial fibrillation, on chronic anticoagulation with warfarin: Rate controlled on diltiazem + propranolol. On admission, INR was subtherapeutic at 1.6. Home warfarin is being held in setting of hemarthrosis of R knee Microcytic anemia: Chronic. Likely due to alpha thalassemia. On admission: Hgb 10.0, Hct 31.5, MCV 65.4 Diabetes: Last A1c 6.5% on 10/27/21; continue home Lantus; DM2 diet Hypertension: Continue home isosorbide mononitrate, diltiazem, propranolol, and lisinopril Depression: Continue home wellbutrin and cymbalta CHF: Continue home eplerenone and lasix BPH: Continue home dutasteride and flomax. Recent cystoscopy 11/10/21; continue to follow with urology in outpatient setting. Hyperlipidemia: Continue home ezetimibe Liver cirrhosis: Continue home lactulose. ? Xifaxan compliance. Vertebral fractures: Continue home diclofenac gel and gabapentin Chronic osteomyelitis of lumbar spine: Continue home doxycycline GERD: continue home pantoprazole FENGI: DM2 diet DVT ppx: Anticoagulated on home coumadin but deferring chemoppx in setting of hemarthrosis; SCDs Dispo: med/surg Code status: FULL CODE (2) Acute knee pain: (3) Fall from standing: (4) CAD (coronary artery disease): (5) Depression: (6) Essential (primary) hypertension: (7) detention (current) use of anticoagulants: (8) Type 2 diabetes mellitus: (9) PAF (paroxysmal atrial fibrillation): (10) BPH loc w urin obs/LUTS: Admission and Anticipated Discharge Date Admission Date: November 13, 2021 Supervising Physician Co-Signing Physician Notes Resident Physician Supervision Note: I independently interviewed and examined the patient and verified the barton history and physical, reviewed labs and image studies and agree with resident Dr. Oneill findings and care plan. Subjective patient reports ongoing discomfort in back (chronic) and right knee. Review of Systems Review of Systems: All systems reviewed & are unremarkable except as noted in HPI & below Physical Exam Constitutional: WD/WN, vitals as above cooperative; no acute distress ENMT: external ear and nose normal, oropharynx normal Neck: normal visual inspection and trachea midline Cardiovascular: RRR, no murmur, no edema Heart Sounds: normal S1 and normal S2 Gastrointestinal (Abdomen): normal bowel sounds, soft, nontender, no hepatosplenomegaly Musculoskeletal: Head/Neck/Chest: normocephalic and head atraumatic Knee: + knee abnormal to inspection, + ecchymosis (R medial knee) and + limited ROM of knee (cannot extend R knee ) Skin: no rashes, warm and dry Neurologic: moves all extremities Psychiatric: A+Ox3, euthymic affect Results & Data Results & Data ([facility]) Vital Signs (Past 12 Hours) Vital Signs Temp Pulse Resp BP Pulse Ox 11/14/21 13:53 36.5 C 69 18 153/79 H 95 11/14/21 13:28 69 153/83 H 11/14/21 07:07 36.6 C 72 19 192/95 H 96 (1) Acute knee pain Laterality: right Qualified Code(s): M25.561 - Pain in right knee
[2021-11-14] MEDS: EPLERENONE PO SCH (16:47)
[2021-11-14] MEDS: MoRPHine SULFATE IR 15 MG TAB (IMMEDIATE RELEASE) PO PRN (17:52)
[2021-11-14] MEDS: TAMSULOSIN HCL 0.4 MG CAP PO SCH (21:04)
[2021-11-14] MEDS: EZETIMIBE 10 MG TABLET PO SCH (21:05)
[2021-11-14] MEDS: DUTASTERIDE PO SCH (21:05)
[2021-11-14] MEDS: INSULIN GLARGINE SOLOSTAR 100 UNITS/ML 3 ML PEN SQ SCH (21:06)
[2021-11-14] MEDS: LACTULOSE SYRUP 30 GM/45 ML UDP PO SCH (21:06)
[2021-11-14] MEDS: ISOSORBIDE MONO EXTENDED REL 60 MG TABCR PO SCH (21:21)
[2021-11-15 06:59] LABS: Mean Corpuscular Hemoglobin 20.2 pg (25-34); Mean Corpuscular Volume 67.4 fL (80-100); RDW Coefficient of Variation 23.8 % (11.5-14.5); RDW Standard Deviation 57.7 fL (36.4-46.3); Red Blood Count 4.45 M/uL (4.7-6.1); White Blood Count 4.56 K/uL (4.8-10.8)
--- NOTE | 2021-11-15 07:09 | Orthopedic Progress Note ---
Date of Service November 15, 2021 Assessment & Plan (1) Contusion of right knee: I spent a lot of time talking to the patient and his about his right knee. He has a lot of chronic issues with the right knee. It is difficult for me to get a good answer of where his knee was prior to this more recent fall. The x-rays and CT scan do show a lot of chronic conditions. I do not see anything that is necessarily acute. However, his knee function is very poor. I cannot extend him past 45 degrees. The swelling is going down a little bit. At the very least, he has a contusion of his right knee. Given the amount of arthritis and chronic issues to the right knee, the only operation that would help this knee would be a hinged knee replacement. Given the amount of swelling that he currently has, and his current health status, a hinged knee replacement is not advised. I am interested to see how he does once the swelling goes down. I am hoping his knee function returns to where it was before this most recent episode. Becky Chivo was seen and examined at bedside this morning. He says his knee is feeling better. He has not tried to put much weight on it yet. He has no new complaints. Review of Systems All systems reviewed & are unremarkable except as noted in HPI & below. Physical Exam Physical examination the right knee, the swelling is down a little bit. He had a small blister on the superior medial aspect that is covered with thin adhesive dressing. I can extend his knee to about 45 degrees but that. Results & Data Results & Data Laboratory Results . Diagnostic Findings . PG Care Time/CCT Total # of Minutes Spent Total Time Spent with Patient: Total time spent is greater than 50% in coordination of care (as documented) at patient's floor/unit and/or counseling patient: Coding Level of Care Code 06989 Subseq Hosp Care Lvl 2 Diagnoses Contusion of right knee S80.01XA
[2021-11-15 07:13] LABS: BUN Creatinine Ratio 11.3 (10-20); Calcium 7.8 mg/dl (8.5-10.1); Creatinine Clr Calc Pharmacy 122.1 ml/min; Est GFR (African American) 105.6 ml/min; Est GFR (Non-African American) 91.1 ml/min; Magnesium 1.7 mg/dl (1.7-2.4); Potassium 3.3 mmol/L (3.5-5.1)
[2021-11-15] MEDS ORDERED: POTASSIUM CHLORIDE CRTAB 20 MEQ TABCR PO STA (07:22)
[2021-11-15 07:23] LABS: Platelet Count 96 K/uL (130-400); Platelet Estimate Decreased (Normal)
--- NOTE | 2021-11-15 08:06 | Electrocardiogram Report ---
Test Reason : Blood Pressure : / mmHG Vent. Rate : 081 BPM Atrial Rate : 066 BPM P-R Int : 000 ms QRS Dur : 180 ms QT Int : 472 ms P-R-T Axes : 000 059 028 degrees QTc Int : 548 ms Sinus rhythm with premature ventricular or aberrantly conducted complexes Premature atrial complexes Right bundle branch block Inferior infarct (cited on or before 12-AUG-2020) Abnormal ECG When compared with ECG of 12-MAR-2021 09:17, QT has shortened Premature atrial complexes and PVCs are present Confirmed by Edin Rizo ([id number]) on 11/15/2021 8:06:39 AM Referred By: REFERRED SELF Confirmed By:Edin Rizo
[2021-11-15] MEDS: buPROPion SR 100 MG TABCR PO SCH (08:44)
[2021-11-15] MEDS: LACTULOSE SYRUP 30 GM/45 ML UDP PO SCH ×3 (08:44→20:56)
[2021-11-15] MEDS: lisinopril 20 MG TAB PO SCH (08:44)
[2021-11-15] MEDS: dilTIAZem ER 180 MG CAPCR PO SCH (08:44)
[2021-11-15] MEDS: POTASSIUM CHLORIDE CRTAB 20 MEQ TABCR PO SCH ×2 (08:45→20:58)
[2021-11-15] MEDS: PROPRANOLOL HCL 10 MG TAB PO SCH ×3 (08:45→20:59)
[2021-11-15] MEDS: DOXYCYCLINE HYCLATE 100 MG CAP PO SCH ×2 (08:45→17:08)
[2021-11-15] MEDS: MoRPHine SULFATE IR 15 MG TAB (IMMEDIATE RELEASE) PO PRN ×2 (08:45→17:58)
[2021-11-15] MEDS: FUROSEMIDE 40 MG TAB PO SCH (08:45)
[2021-11-15] MEDS: MAGNESIUM OXIDE 400 MG TAB PO SCH ×2 (08:45→20:58)
[2021-11-15] MEDS: GABAPENTIN 300 MG CAP PO SCH ×3 (08:45→20:58)
[2021-11-15] MEDS: PANTOprazole 40 MG TAB PO SCH ×2 (08:45→20:59)
[2021-11-15] MEDS: EPLERENONE PO SCH (08:46)
[2021-11-15] MEDS: DICLOFENAC SOD 1% GEL 100 GM TUBE EXT SCH ×4 (08:46→20:56)
--- NOTE | 2021-11-15 09:15 | Hospitalist Progress Note ---
Date of Service November 15, 2021 Assessment & Plan (1) Ambulatory dysfunction: Plan: Chivo Herring ia a 70 yo male w/ complicated PMHx including DM2, paroxysmal aFib, depression/ anxiety, low back pain/chronic osteomyelitis of lumbar spine, chronic microcytic anemia, chronic liver failure w/ cirrhosis managed by GI through GI at [facility], CAD s/p CABG x3 in 1993 and again in 2010, NSTEMI on 08/12/20, BPH with LUTS, hypertension, GERD with esophageal varices, hyperaldost eronism, venous insufficiency with hypomagnesemia, and morbid obesity admitted to the hospital 11/13/21 for ambulatory dysfunction and weakness s/p fall. Ambulatory dysfunction and R sided weakness s/p fall - Patient with progressively worsening R sided weakness and ambulatory dysfunction over the past several weeks - Etiology is uncertain - Brain MRI and Head CT showed no evidence of stroke (however the former was motion degraded) - near vasovagal event secondary to blood pooling (ie hepatic congestion) due to underlying cirrhosis is possible - underlying diabetic neuropathy with superimposed deconditioning certainly increase propensity to fall - Fall precautions - PT/OT ordered, anticipate need for rehab Right knee contusion - Right knee XR 11/13/21: Soft tissue swelling and large joint effusion with no fracture identified. - Right knee CT 11/13/21: Showing evidence of impact type injury/fracture and hemarthrosis. - Ortho consulted: acute swelling secondary to fall makes sorting out acute vs. chronic changes difficult. No further intervention until swelling goes down. - Coumadin held in setting of potential hemarthrosis on admission--> resumed today, 11/15/21 - pain regimen ordered: Tylenol front line (< 3 grams per day) agent given concurrent cirrhosis. Narcotics for severe pain with prolonged intervals Liver Cirrhosis - history of - likely source of pancytopenia + elevated AST - avoid NSAIDs Hypokalemia - K at 3.3 - Mag on low end of normal at 1.7 - Replacement ordered - Given cardiac hx, goal K > 4 and Mag > 2 - Recheck BMP and mag in AM Chronic Conditions Atrial fibrillation, on chronic anticoagulation with warfarin: Rate controlled on diltiazem + propranolol. On admission, INR was subtherapeutic at 1.6. Home warfarin is being held in setting of hemarthrosis of R knee. Resumed today, 11/15/21 Microcytic anemia: Chronic. Likely due to alpha thalassemia Diabetes: Last A1c 6.5% on 10/27/21; continue home Lantus; DM2 diet Hypertension: Continue home isosorbide mononitrate, diltiazem, propranolol, and lisinopril Depression: Continue home wellbutrin and cymbalta CHF: Continue home eplerenone and lasix BPH: Continue home dutasteride and flomax. Recent cystoscopy 11/10/21; continue to follow with urology in outpatient setting. Hyperlipidemia: Continue home ezetimibe Liver cirrhosis: Continue home lactulose. ? Xifaxan compliance. 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 Oneill findings and care plan. Subjective No acute events overnight. Back pain improved. R knee is still hurting. Patient is willing to consider rehab vs. home PT upon discharge if he qualifies Review of Systems Review of Systems: All systems reviewed & are unremarkable except as noted in HPI & below Physical Exam Constitutional: WD/WN, vitals as above cooperative; no acute distress ENMT: external ear and nose normal, oropharynx normal Neck: normal visual inspection and trachea midline Respiratory: normal respiratory effort, lungs clear to auscultation Cardiovascular: RRR, no murmur, no edema Heart Sounds: normal S1 and normal S2 Gastrointestinal (Abdomen): normal bowel sounds, soft, nontender, no hepatosplenomegaly Musculoskeletal: Head/Neck/Chest: normocephalic and head atraumatic Knee: + knee abnormal to inspection, + effusion (improving ), + ecchymosis (R medial knee) and + limited ROM of knee (R knee extension restricted to 45 degrees) Skin: no rashes, warm and dry Neurologic: moves all extremities Psychiatric: A+Ox3, euthymic affect Results & Data Results & Data ([facility]) Vital Signs (Past 12 Hours) Vital Signs Temp Pulse Resp BP Pulse Ox 11/15/21 07:29 36.5 C 71 20 111/65 95 11/14/21 22:32 36.8 C 69 18 168/93 H 91 Resident Activity Tracking Resident Involvement: Resident Care Provided Care Provided: Adult Hospital Medicine (1) Acute knee pain Laterality: right Qualified Code(s): M25.561 - Pain in right knee
[2021-11-15] MEDS: DULoxetine HCL 60 MG CAP PO SCH (09:58)
[2021-11-15] MEDS: WARFARIN SOD 7.5 MG TAB PO SCH (15:48)
[2021-11-15] MEDS: DUTASTERIDE PO SCH (20:56)
[2021-11-15] MEDS: ISOSORBIDE MONO EXTENDED REL 60 MG TABCR PO SCH (20:56)
[2021-11-15] MEDS: INSULIN GLARGINE SOLOSTAR 100 UNITS/ML 3 ML PEN SQ SCH (20:56)
[2021-11-15] MEDS: EZETIMIBE 10 MG TABLET PO SCH (20:57)
[2021-11-15] MEDS: TAMSULOSIN HCL 0.4 MG CAP PO SCH (20:57)
[2021-11-16 06:58] LABS: Nucleated RBC # (auto) 0.03 K/uL (0-0); Nucleated RBC % (auto) 0.7 %
[2021-11-16 07:06] LABS: INR 1.7 (0.9-1.1); Prothrombin Time 17.7 Seconds (9.0-12.0)
[2021-11-16 07:08] LABS: Hematocrit (blood only) 29.3 % (42-52); Hemoglobin 8.8 g/dL (14.0-18.0); Mean Corpuscular Hemoglobin 20.4 pg (25-34); Mean Corpuscular Volume 67.8 fL (80-100); RDW Coefficient of Variation 23.7 % (11.5-14.5); RDW Standard Deviation 57.8 fL (36.4-46.3); Red Blood Count 4.32 M/uL (4.7-6.1); White Blood Count 4.59 K/uL (4.8-10.8)
[2021-11-16 07:15] LABS: Platelet Count 91 K/uL (130-400); Platelet Estimate Decreased (Normal)
[2021-11-16 07:33] LABS: BUN Creatinine Ratio 16.5 (10-20); Creatinine Clr Calc Pharmacy 123.7 ml/min; Est GFR (African American) 106.2 ml/min; Est GFR (Non-African American) 91.6 ml/min; Magnesium 1.7 mg/dl (1.7-2.4); Potassium 4.1 mmol/L (3.5-5.1)
[2021-11-16] MEDS: DICLOFENAC SOD 1% GEL 100 GM TUBE EXT SCH ×4 (08:30→20:45)
[2021-11-16] MEDS: PROPRANOLOL HCL 10 MG TAB PO SCH ×3 (08:33→20:44)
[2021-11-16] MEDS: PANTOprazole 40 MG TAB PO SCH ×2 (08:34→20:44)
[2021-11-16] MEDS: LACTULOSE SYRUP 30 GM/45 ML UDP PO SCH ×3 (08:34→20:45)
[2021-11-16] MEDS: DOXYCYCLINE HYCLATE 100 MG CAP PO SCH ×2 (08:34→16:15)
[2021-11-16] MEDS: EPLERENONE PO SCH (08:35)
[2021-11-16] MEDS: buPROPion SR 100 MG TABCR PO SCH (08:35)
[2021-11-16] MEDS: POTASSIUM CHLORIDE CRTAB 20 MEQ TABCR PO SCH ×2 (08:36→20:44)
[2021-11-16] MEDS: GABAPENTIN 300 MG CAP PO SCH ×3 (08:36→20:44)
[2021-11-16] MEDS: lisinopril 20 MG TAB PO SCH (08:36)
[2021-11-16] MEDS: FUROSEMIDE 40 MG TAB PO SCH (08:36)
[2021-11-16] MEDS: DULoxetine HCL 60 MG CAP PO SCH (08:37)
[2021-11-16] MEDS: dilTIAZem ER 180 MG CAPCR PO SCH (08:37)
[2021-11-16] MEDS: MAGNESIUM OXIDE 400 MG TAB PO SCH ×2 (11:05→20:44)
[2021-11-16] MEDS: MoRPHine SULFATE IR 15 MG TAB (IMMEDIATE RELEASE) PO PRN (13:18)
[2021-11-16] MEDS: WARFARIN SOD 7.5 MG TAB PO SCH (16:12)
--- NOTE | 2021-11-16 17:13 | Hospitalist Progress Note ---
Date of Service November 16, 2021 Assessment & Plan (1) Ambulatory dysfunction: Plan: Chivo Herring ia a 70 yo male w/ complicated PMHx including DM2, paroxysmal aFib, depression/ anxiety, low back pain/chronic osteomyelitis of lumbar spine, chronic microcytic anemia, chronic liver failure w/ cirrhosis managed by GI through GI at [facility], CAD s/p CABG x3 in 1993 and again in 2010, NSTEMI on 08/12/20, BPH with LUTS, hypertension, GERD with esophageal varices, hyperaldost eronism, venous insufficiency with hypomagnesemia, and morbid obesity admitted to the hospital 11/13/21 for ambulatory dysfunction and weakness s/p fall. Ambulatory dysfunction and R sided weakness s/p fall - Patient with progressively worsening R sided weakness and ambulatory dysfunction over the past several weeks - Etiology is uncertain - Brain MRI and Head CT showed no evidence of stroke (however CT was motion degraded) - near vasovagal event secondary to blood pooling (ie hepatic congestion) due to underlying cirrhosis is possible - underlying diabetic neuropathy with superimposed deconditioning certainly increase propensity to fall - Fall precautions - PT/OT ordered - Recommending rehab; placement pending Right knee contusion - Right knee XR 11/13/21: Soft tissue swelling and large joint effusion with no fracture identified. - Right knee CT 11/13/21: Showing evidence of impact type injury/fracture and hemarthrosis. - Ortho consulted: acute swelling secondary to fall makes sorting out acute vs. chronic changes difficult. No further intervention until swelling goes down. - Coumadin held in setting of potential hemarthrosis on admission--> resumed 11/15/21 - pain regimen ordered: Tylenol front line (< 3 grams per day) agent given concurrent cirrhosis. Narcotics for severe pain with prolonged intervals Liver Cirrhosis, hisotry of - likely source of pancytopenia + elevated AST - avoid NSAIDs Hypokalemia - K at 3.3; Mag on low end of normal at 1.7 - Replacement ordered - Given cardiac hx, goal K > 4 and Mag > 2 - Recheck BMP and mag in AM Chronic Conditions Atrial fibrillation, on chronic anticoagulation with warfarin: Rate controlled on diltiazem + propranolol. On admission, INR was subtherapeutic at 1.6. Microcytic anemia: Chronic. Likely due to alpha thalassemia Diabetes: Last A1c 6.5% on 10/27/21; continue home Lantus; DM2 diet Hypertension: Continue home isosorbide mononitrate, diltiazem, propranolol, and lisinopril Depression: Continue home wellbutrin and cymbalta CHF: Continue home eplerenone and lasix BPH: Continue home dutasteride and flomax. Recent cystoscopy 11/10/21; continue to follow with urology in outpatient setting. Hyperlipidemia: Continue home ezetimibe Liver cirrhosis: Continue home lactulose. ? Xifaxan compliance. 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 awaiting rehab. no new complaints. pain meds helping, just wear off reasonably fast, but does not request any change in meds at this time vitals noted nad heent nc at mmm breathing unlabored no accessory muscles good effort skin no rashes no pallor or icterus neuro no focal deficits skin small blister R knee no tracking erythema no effusions falls/weakness - PT/OT - for rehab, awaiting approval/bed availability otherwise as above Subjective Patient seen and evaluated at bedside this morning. No acute events overnight. Patient complains of right knee pain. Current pain is 7/10 but improves to 4/10 with pain medication. Patient has no other complaints. Eating well and sleeping well. Denies CP, SOB, abd pain, nausea, vomiting, BUI, lightheadedness, or diz ziness. Normal BMs w/ last BM being this AM. Review of Systems Review of Systems: See HPI Physical Exam Physical Exam: GENERAL: No acute distress. Obese male, well developed. Vital signs reviewed. EYES: EOMI. Anicteric sclerae. HENT: Moist mucous membranes. RESPIRATORY: Clear to auscultation bilaterally. No wheezing, rales, or rhonchi. CARDIOVASCULAR: Regular rate and rhythm. No murmurs. ABDOMEN: Soft. Obese abdomen that is non-tender. Normal bowel sounds. EXTREMITIES: Right knee with mild tenderness to palpation and moderate swelling. No warmth. ROM limited secondary to pain. SKIN: Warm, dry. NEUROLOGIC: Awake. A/O x4. No focal neurological deficits. Normal speech. PSYCHIATRIC: Cooperative. Appropriate mood and affect. Results & Data Results & Data ([facility]) Vital Signs (Past 12 Hours) Vital Signs Temp Pulse Resp BP Pulse Ox 11/16/21 15:08 36.4 C L 63 16 127/71 95 11/16/21 07:22 36.7 C 68 16 141/71 H 93 Laboratory Results 11/16/21 11/16/21 11/16/21 Range/Units 17:06 12:07 08:10 WBC (4.8-10.8) K/uL RBC (4.7-6.1) M/uL Hgb (14.0-18.0) g/dL Hct (42-52) % MCV (80-100) fL MCH (25-34) pg MCHC (32-36) g/dL RDW Std Deviation (36.4-46.3) fL RDW Coeff of Jt (11.5-14.5) % Plt Count (130-400) K/uL Absolute Nucleated RBC (0-0) K/uL Nucleated RBC % (auto) % Platelet Estimate (Normal) Peripher Smr Path Cons PT (9.0-12.0) Seconds INR (0.9-1.1) Sodium (136-145) mmol/L Potassium (3.5-5.1) mmol/L Chloride (98-107) mmol/L Carbon Dioxide (21-32) mmol/L Anion Gap (3-11) BUN (6-23) mg/dl Creatinine (0.6-1.4) mg/dl Est Cr Clr Drug Dosing ml/min Est GFR ( Amer) ml/min Est GFR (Non-Af Amer) ml/min BUN/Creatinine Ratio (10-20) Glucose (70-99(Fasting)) mg/dl POC Glucose 112 H 138 H 107 H (70-99) mg/dl Calcium (8.5-10.1) mg/dl Magnesium (1.7-2.4) mg/dl 11/16/21 11/16/21 11/16/21 Range/Units 06:33 06:33 06:33 WBC 4.59 L (4.8-10.8) K/uL RBC 4.32 L (4.7-6.1) M/uL Hgb 8.8 L (14.0-18.0) g/dL Hct 29.3 L (42-52) % MCV 67.8 L (80-100) fL MCH 20.4 L (25-34) pg MCHC 30.0 L (32-36) g/dL RDW Std Deviation 57.8 H (36.4-46.3) fL RDW Coeff of Jt 23.7 H (11.5-14.5) % Plt Count 91 L (130-400) K/uL Absolute Nucleated RBC 0.03 H (0-0) K/uL Nucleated RBC % (auto) 0.7 % Platelet Estimate Decreased L (Normal) Peripher Smr Path Cons PT 17.7 H (9.0-12.0) Seconds INR 1.7 H (0.9-1.1) Sodium 138 (136-145) mmol/L Potassium 4.1 D (3.5-5.1) mmol/L Chloride 105 (98-107) mmol/L Carbon Dioxide 31 (21-32) mmol/L Anion Gap 2 L (3-11) BUN 13 (6-23) mg/dl Creatinine 0.79 (0.6-1.4) mg/dl Est Cr Clr Drug Dosing 123.7 ml/min Est GFR ( Amer) 106.2 ml/min Est GFR (Non-Af Amer) 91.6 ml/min BUN/Creatinine Ratio 16.5 (10-20) Glucose 98 (70-99(Fasting)) mg/dl POC Glucose (70-99) mg/dl Calcium 8.0 L (8.5-10.1) mg/dl Magnesium 1.7 (1.7-2.4) mg/dl 11/15/21 11/14/21 Range/Units 20:32 07:02 WBC (4.8-10.8) K/uL RBC (4.7-6.1) M/uL Hgb (14.0-18.0) g/dL Hct (42-52) % MCV (80-100) fL MCH (25-34) pg MCHC (32-36) g/dL RDW Std Deviation (36.4-46.3) fL RDW Coeff of Jt (11.5-14.5) % Plt Count (130-400) K/uL Absolute Nucleated RBC (0-0) K/uL Nucleated RBC % (auto) % Platelet Estimate (Normal) Peripher Smr Path Cons PT (9.0-12.0) Seconds INR (0.9-1.1) Sodium (136-145) mmol/L Potassium (3.5-5.1) mmol/L Chloride (98-107) mmol/L Carbon Dioxide (21-32) mmol/L Anion Gap (3-11) BUN (6-23) mg/dl Creatinine (0.6-1.4) mg/dl Est Cr Clr Drug Dosing ml/min Est GFR ( Amer) ml/min Est GFR (Non-Af Amer) ml/min BUN/Creatinine Ratio (10-20) Glucose (70-99(Fasting)) mg/dl POC Glucose 151 H (70-99) mg/dl Calcium (8.5-10.1) mg/dl Magnesium (1.7-2.4) mg/dl Resident Activity Tracking Resident Involvement: Resident Care Provided Care Provided: Adult [facility] (1) Acute knee pain Laterality: right Qualified Code(s): M25.561 - Pain in right knee
--- NOTE | 2021-11-16 17:24 | Billing Data ---
Date of Service November 16, 2021 Coding Level of Care Code 43137 Subseq Hosp Care Lvl 2
[2021-11-16] MEDS: ISOSORBIDE MONO EXTENDED REL 60 MG TABCR PO SCH (20:44)
[2021-11-16] MEDS: TAMSULOSIN HCL 0.4 MG CAP PO SCH (20:44)
[2021-11-16] MEDS: EZETIMIBE 10 MG TABLET PO SCH (20:44)
[2021-11-16] MEDS: DUTASTERIDE PO SCH (20:45)
[2021-11-16] MEDS: INSULIN GLARGINE SOLOSTAR 100 UNITS/ML 3 ML PEN SQ SCH (20:48)
[2021-11-17] MEDS: MoRPHine SULFATE IR 15 MG TAB (IMMEDIATE RELEASE) PO PRN ×2 (03:01→09:54)
[2021-11-17 07:07] LABS: INR 2.1 (0.9-1.1); Prothrombin Time 21.2 Seconds (9.0-12.0)
[2021-11-17 07:10] LABS: Mean Corpuscular Hgb Conc 30.8 g/dL (32-36); Nucleated RBC # (auto) 0.05 K/uL (0-0)
[2021-11-17 07:20] LABS: Hematocrit (blood only) 27.9 % (42-52); Hemoglobin 8.6 g/dL (14.0-18.0); Mean Corpuscular Hemoglobin 20.7 pg (25-34); Mean Corpuscular Volume 67.1 fL (80-100); RDW Coefficient of Variation 23.8 % (11.5-14.5); RDW Standard Deviation 56.3 fL (36.4-46.3); Red Blood Count 4.16 M/uL (4.7-6.1)
[2021-11-17 07:27] LABS: Platelet Count 96 K/uL (130-400)
[2021-11-17 07:33] LABS: BUN Creatinine Ratio 16.4 (10-20); Calcium 8.1 mg/dl (8.5-10.1); Creatinine Clr Calc Pharmacy 160.2 ml/min; Est GFR (African American) 118.1 ml/min; Est GFR (Non-African American) 101.9 ml/min; Potassium 4.4 mmol/L (3.5-5.1)
[2021-11-17 07:53] LABS: Platelet Estimate Decreased (Normal)
[2021-11-17] MEDS: LACTULOSE SYRUP 30 GM/45 ML UDP PO SCH ×3 (08:20→20:17)
[2021-11-17] MEDS: EPLERENONE PO SCH (08:22)
[2021-11-17] MEDS: PROPRANOLOL HCL 10 MG TAB PO SCH ×3 (08:23→20:18)
[2021-11-17] MEDS: POTASSIUM CHLORIDE CRTAB 20 MEQ TABCR PO SCH ×2 (08:23→21:49)
[2021-11-17] MEDS: DOXYCYCLINE HYCLATE 100 MG CAP PO SCH ×2 (08:24→17:10)
[2021-11-17] MEDS: PANTOprazole 40 MG TAB PO SCH ×2 (08:24→20:17)
[2021-11-17] MEDS: GABAPENTIN 300 MG CAP PO SCH ×3 (08:24→20:16)
[2021-11-17] MEDS: dilTIAZem ER 180 MG CAPCR PO SCH (08:25)
[2021-11-17] MEDS: FUROSEMIDE 40 MG TAB PO SCH (08:25)
[2021-11-17] MEDS: lisinopril 20 MG TAB PO SCH (08:25)
[2021-11-17] MEDS: DULoxetine HCL 60 MG CAP PO SCH (08:26)
[2021-11-17] MEDS: buPROPion SR 100 MG TABCR PO SCH (08:26)
[2021-11-17] MEDS: DICLOFENAC SOD 1% GEL 100 GM TUBE EXT SCH ×4 (08:26→20:13)
--- NOTE | 2021-11-17 09:25 | Hospitalist Progress Note ---
Date of Service November 17, 2021 Assessment & Plan (1) Ambulatory dysfunction: Plan: Chivo Herring ia a 70 yo male w/ complicated PMHx including DM2, paroxysmal aFib, depression/ anxiety, low back pain/chronic osteomyelitis of lumbar spine, chronic microcytic anemia, chronic liver failure w/ cirrhosis managed by GI through GI at [facility], CAD s/p CABG x3 in 1993 and again in 2010, NSTEMI on 08/12/20, BPH with LUTS, hypertension, GERD with esophageal varices, hyperaldost eronism, venous insufficiency with hypomagnesemia, and morbid obesity admitted to the hospital 11/13/21 for ambulatory dysfunction and weakness s/p fall. Ambulatory dysfunction and R sided weakness s/p fall - Patient with progressively worsening R sided weakness and ambulatory dysfunction over the past several weeks - Etiology is uncertain - Brain MRI and Head CT showed no evidence of stroke (however CT was motion degraded) - near vasovagal event secondary to blood pooling (ie hepatic congestion) due to underlying cirrhosis is possible - underlying diabetic neuropathy with superimposed deconditioning certainly increase propensity to fall - Fall precautions - PT/OT ordered - Recommending rehab; patient is medically stable for discharge, placement pending Right knee contusion - Right knee XR 11/13/21: Soft tissue swelling and large joint effusion with no fracture identified. - Right knee CT 11/13/21: Showing evidence of impact type injury/fracture and hemarthrosis. - Ortho consulted: acute swelling secondary to fall makes sorting out acute vs. chronic changes difficult. No further intervention until swelling goes down. - Coumadin held in setting of potential hemarthrosis on admission--> resumed 11/15/21 - pain regimen ordered: Tylenol front line (< 3 grams per day) agent given concurrent cirrhosis. Narcotics for severe pain with prolonged intervals Liver Cirrhosis, hisotry of - likely source of pancytopenia + elevated AST Electrolyte abnormalities: Hypokalemia (resolved) and Hypomagnesia - K at 4.4 today; Mag low at 1.6 - Replacement mag ordered - Given cardiac hx, goal K > 4 and Mag > 2 - Recheck BMP and mag in AM Chronic Conditions Atrial fibrillation, on chronic anticoagulation with warfarin: Rate controlled on diltiazem + propranolol. On admission, INR was subtherapeutic at 1.6. Microcytic anemia: Chronic. Likely due to alpha thalassemia Diabetes: Last A1c 6.5% on 10/27/21; continue home Lantus; DM2 diet Hypertension: Continue home isosorbide mononitrate, diltiazem, propranolol, and lisinopril Depression: Continue home wellbutrin and cymbalta CHF: Continue home eplerenone and lasix BPH: Continue home dutasteride and flomax. Recent cystoscopy 11/10/21; continue to follow with urology in outpatient setting. Hyperlipidemia: Continue home ezetimibe Liver cirrhosis: Continue home lactulose. ? Xifaxan compliance. 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 no new complaints. in d/w R2 pt's apparently strongly in favor of SNF vitals noted nad heent nc at mmm breathing unlabored no accessory muscles good effort skin no rashes no pallor or icterus neuro no focal deficits skin small blister R knee no tracking erythema no effusions falls/weakness - PT/OT - really would be safer at a facility - given that was reportedly in favor of SNF, hopefully he will change his mind as well; d/w him frankly that if he still wanted to go home instead, the only way i could in good [place] discharge him would be if sees how he is doing and feels safe that he could be at home under her care. updated case management. otherwise as above Subjective Patient seen and evaluated at bedside this morning. No acute events overnight. Patient complains of persistent right leg pain/weakness but states that there is no acute change. Current pain medication regimen controls pain well. No new complaints. Eating well and sleeping well. Normal BMs w/ last BM being "large" yesterday. Review of Systems Review of Systems: See HPI Physical Exam Physical Exam: GENERAL: No acute distress. Obese male, well developed. Vital signs reviewed. EYES: EOMI. Anicteric sclerae. HENT: Moist mucous membranes. RESPIRATORY: Clear to auscultation bilaterally. No wheezing, rales, or rhonchi. CARDIOVASCULAR: Regular rate and rhythm. No murmurs. ABDOMEN: Soft. Obese abdomen that is non-tender. Normal bowel sounds. SKIN: Warm, dry. NEUROLOGIC: Awake. A/O x4. No focal neurological deficits. Normal speech. PSYCHIATRIC: Cooperative. Appropriate mood and affect. Results & Data Results & Data ([facility]) Vital Signs (Past 12 Hours) Vital Signs Temp Pulse Resp BP Pulse Ox 11/17/21 07:05 36.4 C L 66 18 127/72 95 Laboratory Results 11/17/21 11/17/21 11/17/21 Range/Units 08:17 06:27 06:27 WBC (4.8-10.8) K/uL RBC (4.7-6.1) M/uL Hgb (14.0-18.0) g/dL Hct (42-52) % MCV (80-100) fL MCH (25-34) pg MCHC (32-36) g/dL RDW Std Deviation (36.4-46.3) fL RDW Coeff of Jt (11.5-14.5) % Plt Count (130-400) K/uL Absolute Nucleated RBC (0-0) K/uL Nucleated RBC % (auto) % Platelet Estimate (Normal) Peripher Smr Path Cons PT (9.0-12.0) Seconds INR (0.9-1.1) Sodium 139 (136-145) mmol/L Potassium 4.4 (3.5-5.1) mmol/L Chloride 107 (98-107) mmol/L Carbon Dioxide 30 (21-32) mmol/L Anion Gap 2 L (3-11) BUN 10 (6-23) mg/dl Creatinine 0.61 (0.6-1.4) mg/dl Est Cr Clr Drug Dosing 160.2 ml/min Est GFR ( Amer) 118.1 ml/min Est GFR (Non-Af Amer) 101.9 ml/min BUN/Creatinine Ratio 16.4 (10-20) Glucose 90 (70-99(Fasting)) mg/dl POC Glucose 85 (70-99) mg/dl Calcium 8.1 L (8.5-10.1) mg/dl Magnesium 1.6 L (1.7-2.4) mg/dl 11/17/21 11/17/21 11/16/21 Range/Units 06:27 06:27 20:36 WBC 4.40 L (4.8-10.8) K/uL RBC 4.16 L (4.7-6.1) M/uL Hgb 8.6 L (14.0-18.0) g/dL Hct 27.9 L (42-52) % MCV 67.1 L (80-100) fL MCH 20.7 L (25-34) pg MCHC 30.8 L (32-36) g/dL RDW Std Deviation 56.3 H (36.4-46.3) fL RDW Coeff of Jt 23.8 H (11.5-14.5) % Plt Count 96 L (130-400) K/uL Absolute Nucleated RBC 0.05 H (0-0) K/uL Nucleated RBC % (auto) 1.0 % Platelet Estimate Decreased L (Normal) Peripher Smr Path Cons PT 21.2 H (9.0-12.0) Seconds INR 2.1 H (0.9-1.1) Sodium (136-145) mmol/L Potassium (3.5-5.1) mmol/L Chloride (98-107) mmol/L Carbon Dioxide (21-32) mmol/L Anion Gap (3-11) BUN (6-23) mg/dl Creatinine (0.6-1.4) mg/dl Est Cr Clr Drug Dosing ml/min Est GFR ( Amer) ml/min Est GFR (Non-Af Amer) ml/min BUN/Creatinine Ratio (10-20) Glucose (70-99(Fasting)) mg/dl POC Glucose 120 H (70-99) mg/dl Calcium (8.5-10.1) mg/dl Magnesium (1.7-2.4) mg/dl 11/16/21 11/16/21 11/14/21 Range/Units 17:06 12:07 07:02 WBC (4.8-10.8) K/uL RBC (4.7-6.1) M/uL Hgb (14.0-18.0) g/dL Hct (42-52) % MCV (80-100) fL MCH (25-34) pg MCHC (32-36) g/dL RDW Std Deviation (36.4-46.3) fL RDW Coeff of Jt (11.5-14.5) % Plt Count (130-400) K/uL Absolute Nucleated RBC (0-0) K/uL Nucleated RBC % (auto) % Platelet Estimate (Normal) Peripher Smr Path Cons PT (9.0-12.0) Seconds INR (0.9-1.1) Sodium (136-145) mmol/L Potassium (3.5-5.1) mmol/L Chloride (98-107) mmol/L Carbon Dioxide (21-32) mmol/L Anion Gap (3-11) BUN (6-23) mg/dl Creatinine (0.6-1.4) mg/dl Est Cr Clr Drug Dosing ml/min Est GFR ( Amer) ml/min Est GFR (Non-Af Amer) ml/min BUN/Creatinine Ratio (10-20) Glucose (70-99(Fasting)) mg/dl POC Glucose 112 H 138 H (70-99) mg/dl Calcium (8.5-10.1) mg/dl Magnesium (1.7-2.4) mg/dl Resident Activity Tracking Resident Involvement: Resident Care Provided Care Provided: Adult Hospital Medicine (1) Acute knee pain Laterality: right Qualified Code(s): M25.561 - Pain in right knee
[2021-11-17] MEDS: MAGNESIUM OXIDE 400 MG TAB PO SCH ×2 (09:55→21:49)
[2021-11-17] MEDS: MAGNESIUM SULFATE / D5W 1 GM/100 ML BAG IV SCH ×3 (09:57→14:33)
[2021-11-17] MEDS: WARFARIN SOD 7.5 MG TAB PO SCH (17:11)
--- NOTE | 2021-11-17 18:58 | Billing Data ---
Date of Service November 17, 2021 Coding Level of Care Code 13452 Subseq Hosp Care Lvl 1
[2021-11-17] MEDS: EZETIMIBE 10 MG TABLET PO SCH (20:14)
[2021-11-17] MEDS: DUTASTERIDE PO SCH (20:15)
[2021-11-17] MEDS: ISOSORBIDE MONO EXTENDED REL 60 MG TABCR PO SCH (20:17)
[2021-11-17] MEDS: TAMSULOSIN HCL 0.4 MG CAP PO SCH (20:18)
[2021-11-17] MEDS: INSULIN GLARGINE SOLOSTAR 100 UNITS/ML 3 ML PEN SQ SCH (21:49)
[2021-11-18 06:22] LABS: Mean Corpuscular Hgb Conc 30.6 g/dL (32-36); Nucleated RBC # (auto) 0.03 K/uL (0-0); Nucleated RBC % (auto) 0.8 %
[2021-11-18 06:27] LABS: INR 2.5 (0.9-1.1); Prothrombin Time 25.5 Seconds (9.0-12.0)
[2021-11-18 06:35] LABS: Hematocrit (blood only) 28.8 % (42-52); Hemoglobin 8.8 g/dL (14.0-18.0); Mean Corpuscular Hemoglobin 20.5 pg (25-34); Mean Corpuscular Volume 67.1 fL (80-100); RDW Standard Deviation 56.1 fL (36.4-46.3); Red Blood Count 4.29 M/uL (4.7-6.1); White Blood Count 3.63 K/uL (4.8-10.8)
[2021-11-18 06:48] LABS: BUN Creatinine Ratio 16.4 (10-20); Creatinine Clr Calc Pharmacy 145.8 ml/min; Est GFR (African American) 113.6 ml/min; Magnesium 1.7 mg/dl (1.7-2.4); Potassium 4.7 mmol/L (3.5-5.1)
[2021-11-18 06:49] LABS: Platelet Count 106 K/uL (130-400)
[2021-11-18 06:52] LABS: Platelet Estimate Decreased (Normal)
[2021-11-18] MEDS: LACTULOSE SYRUP 30 GM/45 ML UDP PO SCH ×3 (09:14→21:39)
[2021-11-18] MEDS: EPLERENONE PO SCH (09:15)
[2021-11-18] MEDS: MAGNESIUM OXIDE 400 MG TAB PO SCH ×2 (09:15→21:39)
[2021-11-18] MEDS: DOXYCYCLINE HYCLATE 100 MG CAP PO SCH ×2 (09:16→16:23)
[2021-11-18] MEDS: dilTIAZem ER 180 MG CAPCR PO SCH (09:16)
[2021-11-18] MEDS: PANTOprazole 40 MG TAB PO SCH ×2 (09:16→21:38)
[2021-11-18] MEDS: ZINC SULFATE 220 MG CAPSULE PO SCH (09:17)
[2021-11-18] MEDS: buPROPion SR 100 MG TABCR PO SCH (09:17)
[2021-11-18] MEDS: lisinopril 20 MG TAB PO SCH (09:17)
[2021-11-18] MEDS: DULoxetine HCL 60 MG CAP PO SCH (09:17)
[2021-11-18] MEDS: GABAPENTIN 300 MG CAP PO SCH ×3 (09:18→21:37)
[2021-11-18] MEDS: PROPRANOLOL HCL 10 MG TAB PO SCH ×3 (09:18→21:40)
[2021-11-18] MEDS: FUROSEMIDE 40 MG TAB PO SCH (09:18)
[2021-11-18] MEDS: DICLOFENAC SOD 1% GEL 100 GM TUBE EXT SCH ×4 (09:20→21:35)
[2021-11-18] MEDS: POTASSIUM CHLORIDE CRTAB 20 MEQ TABCR PO SCH ×2 (09:20→21:37)
--- NOTE | 2021-11-18 11:23 | Hospitalist Progress Note ---
Date of Service November 18, 2021 Assessment & Plan (1) Ambulatory dysfunction: Plan: Chivo Herring ia a 70 yo male w/ complicated PMHx including DM2, paroxysmal aFib, depression/ anxiety, low back pain/chronic osteomyelitis of lumbar spine, chronic microcytic anemia, chronic liver failure w/ cirrhosis managed by GI through GI at [facility], CAD s/p CABG x3 in 1993 and again in 2010, NSTEMI on 08/12/20, BPH with LUTS, hypertension, GERD with esophageal varices, hyperaldost eronism, venous insufficiency with hypomagnesemia, and morbid obesity admitted to the hospital 11/13/21 for ambulatory dysfunction and weakness s/p fall. Ambulatory dysfunction and R sided weakness s/p fall - Patient with progressively worsening R sided weakness and ambulatory dysfunction over the past several weeks - Etiology is uncertain - Brain MRI and Head CT showed no evidence of stroke (however CT was motion degraded) - near vasovagal event secondary to blood pooling (ie hepatic congestion) due to underlying cirrhosis is possible - underlying diabetic neuropathy with superimposed deconditioning certainly increase propensity to fall - Fall precautions - PT/OT ordered - Recommending rehab; patient is medically stable for discharge, placement pending Right knee contusion - Right knee XR 11/13/21: Soft tissue swelling and large joint effusion with no fracture identified. - Right knee CT 11/13/21: Showing evidence of impact type injury/fracture and hemarthrosis. - Ortho consulted: acute swelling secondary to fall makes sorting out acute vs. chronic changes difficult. No further intervention until swelling goes down. - Coumadin held in setting of potential hemarthrosis on admission--> resumed 11/15/21 - pain regimen ordered: Tylenol front line (< 3 grams per day) agent given concurrent cirrhosis. Narcotics for severe pain with prolonged intervals Liver Cirrhosis, hisotry of - likely source of pancytopenia + elevated AST Electrolyte abnormalities: Hypokalemia (resolved) and Hypomagnesia - K at 4.4 today; Mag low at 1.6 - Replacement mag ordered - Given cardiac hx, goal K > 4 and Mag > 2 - Recheck BMP and mag in AM Chronic Conditions Atrial fibrillation, on chronic anticoagulation with warfarin: Rate controlled on diltiazem + propranolol. On admission, INR was subtherapeutic at 1.6. Microcytic anemia: Chronic. Likely due to alpha thalassemia Diabetes: Last A1c 6.5% on 10/27/21; continue home Lantus; DM2 diet Hypertension: Continue home isosorbide mononitrate, diltiazem, propranolol, and lisinopril Depression: Continue home wellbutrin and cymbalta CHF: Continue home eplerenone and lasix BPH: Continue home dutasteride and flomax. Recent cystoscopy 11/10/21; continue to follow with urology in outpatient setting. Hyperlipidemia: Continue home ezetimibe Liver cirrhosis: Continue home lactulose. ? Xifaxan compliance. 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 willing to go to snf, rehab emphasis vitals noted nad heent nc at mmm breathing unlabored no accessory muscles good effort skin no rashes no pallor or icterus neuro no focal deficits skin no rashes no pallor or icterus falls/weakness - PT/OT - for SNF once approved/bed available otherwise as above Subjective Patient seen and evaluated at bedside this morning; updated/asked questions via phone call during this AM's evaluation. Patient reports no increased pain s/p fall while trying to get to bathroom yesterday. Patient complains of persistent right leg pain/weakness but states that there is no acute change. Cur rent pain medication regimen controls pain well. No new complaints. Eating well and sleeping well. Review of Systems Review of Systems: See HPI Physical Exam Physical Exam: GENERAL: No acute distress. Obese male, well developed. Vital signs reviewed. EYES: EOMI. Anicteric sclerae. HENT: Moist mucous membranes. RESPIRATORY: Unlabored respirations. SKIN: Warm, dry. NEUROLOGIC: Awake. A/O x4. Normal speech. PSYCHIATRIC: Cooperative. Appropriate mood and affect. Results & Data Results & Data ([facility]) Vital Signs (Past 12 Hours) Vital Signs Temp Pulse Resp BP Pulse Ox 11/18/21 07:58 36.6 C 66 16 127/67 95 Laboratory Results 11/18/21 11/18/21 11/18/21 Range/Units 08:11 05:49 05:49 WBC 3.63 L (4.8-10.8) K/uL RBC 4.29 L (4.7-6.1) M/uL Hgb 8.8 L (14.0-18.0) g/dL Hct 28.8 L (42-52) % MCV 67.1 L (80-100) fL MCH 20.5 L (25-34) pg MCHC 30.6 L (32-36) g/dL RDW Std Deviation 56.1 H (36.4-46.3) fL RDW Coeff of Jt 24.0 H (11.5-14.5) % Plt Count 106 L (130-400) K/uL Absolute Nucleated RBC 0.03 H (0-0) K/uL Nucleated RBC % (auto) 0.8 % Platelet Estimate Decreased L (Normal) PT (9.0-12.0) Seconds INR (0.9-1.1) Sodium 137 (136-145) mmol/L Potassium 4.7 (3.5-5.1) mmol/L Chloride 107 (98-107) mmol/L Carbon Dioxide 30 (21-32) mmol/L Anion Gap 0 L (3-11) BUN 11 (6-23) mg/dl Creatinine 0.67 (0.6-1.4) mg/dl Est Cr Clr Drug Dosing 145.8 ml/min Est GFR ( Amer) 113.6 ml/min Est GFR (Non-Af Amer) 98.0 ml/min BUN/Creatinine Ratio 16.4 (10-20) Glucose 88 (70-99(Fasting)) mg/dl POC Glucose 90 (70-99) mg/dl Calcium 8.0 L (8.5-10.1) mg/dl Magnesium 1.7 (1.7-2.4) mg/dl 11/18/21 11/17/21 11/17/21 Range/Units 05:49 20:57 17:12 WBC (4.8-10.8) K/uL RBC (4.7-6.1) M/uL Hgb (14.0-18.0) g/dL Hct (42-52) % MCV (80-100) fL MCH (25-34) pg MCHC (32-36) g/dL RDW Std Deviation (36.4-46.3) fL RDW Coeff of Jt (11.5-14.5) % Plt Count (130-400) K/uL Absolute Nucleated RBC (0-0) K/uL Nucleated RBC % (auto) % Platelet Estimate (Normal) PT 25.5 H (9.0-12.0) Seconds INR 2.5 H (0.9-1.1) Sodium (136-145) mmol/L Potassium (3.5-5.1) mmol/L Chloride (98-107) mmol/L Carbon Dioxide (21-32) mmol/L Anion Gap (3-11) BUN (6-23) mg/dl Creatinine (0.6-1.4) mg/dl Est Cr Clr Drug Dosing ml/min Est GFR ( Amer) ml/min Est GFR (Non-Af Amer) ml/min BUN/Creatinine Ratio (10-20) Glucose (70-99(Fasting)) mg/dl POC Glucose 107 H 108 H (70-99) mg/dl Calcium (8.5-10.1) mg/dl Magnesium (1.7-2.4) mg/dl 11/17/21 Range/Units 12:09 WBC (4.8-10.8) K/uL RBC (4.7-6.1) M/uL Hgb (14.0-18.0) g/dL Hct (42-52) % MCV (80-100) fL MCH (25-34) pg MCHC (32-36) g/dL RDW Std Deviation (36.4-46.3) fL RDW Coeff of Jt (11.5-14.5) % Plt Count (130-400) K/uL Absolute Nucleated RBC (0-0) K/uL Nucleated RBC % (auto) % Platelet Estimate (Normal) PT (9.0-12.0) Seconds INR (0.9-1.1) Sodium (136-145) mmol/L Potassium (3.5-5.1) mmol/L Chloride (98-107) mmol/L Carbon Dioxide (21-32) mmol/L Anion Gap (3-11) BUN (6-23) mg/dl Creatinine (0.6-1.4) mg/dl Est Cr Clr Drug Dosing ml/min Est GFR ( Amer) ml/min Est GFR (Non-Af Amer) ml/min BUN/Creatinine Ratio (10-20) Glucose (70-99(Fasting)) mg/dl POC Glucose 78 (70-99) mg/dl Calcium (8.5-10.1) mg/dl Magnesium (1.7-2.4) mg/dl Resident Activity Tracking Resident Involvement: Resident Care Provided Care Provided: Adult Hospital Medicine (1) Acute knee pain Laterality: right Qualified Code(s): M25.561 - Pain in right knee
[2021-11-18] MEDS: MoRPHine SULFATE IR 15 MG TAB (IMMEDIATE RELEASE) PO PRN (16:21)
[2021-11-18] MEDS: WARFARIN SOD 7.5 MG TAB PO SCH (16:23)
--- NOTE | 2021-11-18 17:12 | Billing Data ---
Date of Service November 18, 2021 Coding Level of Care Code 27259 Subseq Hosp Care Lvl 1
[2021-11-18] MEDS: EZETIMIBE 10 MG TABLET PO SCH (21:36)
[2021-11-18] MEDS: DUTASTERIDE PO SCH (21:36)
[2021-11-18] MEDS: ISOSORBIDE MONO EXTENDED REL 60 MG TABCR PO SCH (21:38)
[2021-11-18] MEDS: TAMSULOSIN HCL 0.4 MG CAP PO SCH (21:39)
[2021-11-18] MEDS: INSULIN GLARGINE SOLOSTAR 100 UNITS/ML 3 ML PEN SQ SCH (21:40)
[2021-11-19 09:12] LABS: BUN Creatinine Ratio 14.3 (10-20); Calcium 7.9 mg/dl (8.5-10.1); Creatinine Clr Calc Pharmacy 155.1 ml/min; Est GFR (African American) 116.5 ml/min; Est GFR (Non-African American) 100.5 ml/min; Magnesium 1.5 mg/dl (1.7-2.4); Potassium 3.8 mmol/L (3.5-5.1)
[2021-11-19] MEDS: MoRPHine SULFATE IR 15 MG TAB (IMMEDIATE RELEASE) PO PRN ×2 (09:21→19:58)
[2021-11-19] MEDS: DOXYCYCLINE HYCLATE 100 MG CAP PO SCH ×2 (09:22→17:30)
[2021-11-19] MEDS: dilTIAZem ER 180 MG CAPCR PO SCH (09:23)
[2021-11-19] MEDS: buPROPion SR 100 MG TABCR PO SCH (09:23)
[2021-11-19] MEDS: EPLERENONE PO SCH (09:24)
[2021-11-19] MEDS: DULoxetine HCL 60 MG CAP PO SCH (09:24)
[2021-11-19] MEDS: FUROSEMIDE 40 MG TAB PO SCH (09:25)
[2021-11-19] MEDS: GABAPENTIN 300 MG CAP PO SCH ×3 (09:25→21:56)
[2021-11-19] MEDS: POTASSIUM CHLORIDE CRTAB 20 MEQ TABCR PO SCH ×2 (09:26→20:58)
[2021-11-19] MEDS: LACTULOSE SYRUP 30 GM/45 ML UDP PO SCH ×3 (09:26→20:59)
[2021-11-19] MEDS: lisinopril 20 MG TAB PO SCH (09:26)
[2021-11-19] MEDS: PANTOprazole 40 MG TAB PO SCH ×2 (09:26→20:57)
[2021-11-19] MEDS: PROPRANOLOL HCL 10 MG TAB PO SCH ×3 (09:27→20:58)
[2021-11-19] MEDS: MAGNESIUM OXIDE 400 MG TAB PO SCH ×2 (09:27→21:15)
[2021-11-19] MEDS: ZINC SULFATE 220 MG CAPSULE PO SCH (09:27)
[2021-11-19] MEDS: DICLOFENAC SOD 1% GEL 100 GM TUBE EXT SCH ×4 (09:28→20:59)
--- NOTE | 2021-11-19 11:28 | Hospitalist Progress Note ---
Date of Service November 19, 2021 Assessment & Plan (1) Ambulatory dysfunction: Plan: Chivo Herring ia a 70 yo male w/ complicated PMHx including DM2, paroxysmal aFib, depression/ anxiety, low back pain/chronic osteomyelitis of lumbar spine, chronic microcytic anemia, chronic liver failure w/ cirrhosis managed by GI through GI at [facility], CAD s/p CABG x3 in 1993 and again in 2010, NSTEMI on 08/12/20, BPH with LUTS, hypertension, GERD with esophageal varices, hyperaldost eronism, venous insufficiency with hypomagnesemia, and morbid obesity admitted to the hospital 11/13/21 for ambulatory dysfunction and weakness s/p fall. Ambulatory dysfunction and R sided weakness s/p fall - Patient with progressively worsening R sided weakness and ambulatory dysfunction over the past several weeks - Etiology is uncertain - Brain MRI and Head CT showed no evidence of stroke (however CT was motion degraded) - near vasovagal event secondary to blood pooling (ie hepatic congestion) due to underlying cirrhosis is possible - underlying diabetic neuropathy with superimposed deconditioning certainly increase propensity to fall - Fall precautions - PT/OT ordered - Recommending rehab; patient is medically stable for discharge, placement pending Right knee contusion - Right knee XR 11/13/21: Soft tissue swelling and large joint effusion with no fracture identified. - Right knee CT 11/13/21: Showing evidence of impact type injury/fracture and hemarthrosis. - Ortho consulted: acute swelling secondary to fall makes sorting out acute vs. chronic changes difficult. No further intervention until swelling goes down. - Coumadin held in setting of potential hemarthrosis on admission--> resumed 11/15/21 - pain regimen ordered: Tylenol front line (< 3 grams per day) agent given concurrent cirrhosis. Narcotics for severe pain with prolonged intervals Liver Cirrhosis, hisotry of - likely source of pancytopenia + elevated AST Electrolyte abnormalities: Hypokalemia (resolved) and Hypomagnesia - K at 3.8 today; Mag low at 1.5 - Replacement mag and K ordered - Given cardiac hx, goal K > 4 and Mag > 2 - Continue to recheck BMP and mag in AM Chronic Conditions Atrial fibrillation, on chronic anticoagulation with warfarin: Rate controlled on diltiazem + propranolol. On admission, INR was subtherapeutic at 1.6. Microcytic anemia: Chronic. Likely due to alpha thalassemia Diabetes: Last A1c 6.5% on 10/27/21; continue home Lantus; DM2 diet Hypertension: Continue home isosorbide mononitrate, diltiazem, propranolol, and lisinopril Depression: Continue home wellbutrin and cymbalta CHF: Continue home eplerenone and lasix BPH: Continue home dutasteride and flomax. Recent cystoscopy 11/10/21; continue to follow with urology in outpatient setting. Hyperlipidemia: Continue home ezetimibe Liver cirrhosis: Continue home lactulose. ? Xifaxan compliance. 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 still waiting on placement vitals noted nad breathing unlabored no accessory muscles good effort skin no rashes no pallor or icterus falls/weakness - PT/OT - for SNF once approved/bed available, referrals pending otherwise as above Subjective Patient seen and evaluated at bedside this morning. No acute events overnight. Reports persistent pain, most prominent in right lower extremity. No acute ch deanna in pain or weakness. Eating well and sleeping well. Review of Systems Review of Systems: See HPI Physical Exam Physical Exam: GENERAL: No acute distress. Obese male, well developed. Vital signs reviewed. EYES: EOMI. Anicteric sclerae. HENT: Moist mucous membranes. RESPIRATORY: Unlabored respirations. CARDIAC: RRR. No murmurs. MSK: 5/5 strength to LUE and LLE. 4/5 strength to RUE and RLE. SKIN: Warm, dry. NEUROLOGIC: Awake. A/O x4. Normal speech. Normal sensation. PSYCHIATRIC: Cooperative. Appropriate mood and affect. Results & Data Results & Data ([facility]) Vital Signs (Past 12 Hours) Vital Signs Temp Pulse Pulse Resp BP Pulse Ox 11/19/21 09:19 87 129/78 11/19/21 07:35 36.9 C 69 20 133/73 99 Laboratory Results 11/19/21 11/19/21 11/19/21 Range/Units 17:05 12:00 08:08 Sodium (136-145) mmol/L Potassium (3.5-5.1) mmol/L Chloride (98-107) mmol/L Carbon Dioxide (21-32) mmol/L Anion Gap (3-11) BUN (6-23) mg/dl Creatinine (0.6-1.4) mg/dl Est Cr Clr Drug Dosing ml/min Est GFR ( Amer) ml/min Est GFR (Non-Af Amer) ml/min BUN/Creatinine Ratio (10-20) Glucose (70-99(Fasting)) mg/dl POC Glucose 83 109 H 80 (70-99) mg/dl Calcium (8.5-10.1) mg/dl Magnesium (1.7-2.4) mg/dl 11/19/21 11/18/21 Range/Units 07:49 21:01 Sodium 139 (136-145) mmol/L Potassium 3.8 (3.5-5.1) mmol/L Chloride 107 (98-107) mmol/L Carbon Dioxide 29 (21-32) mmol/L Anion Gap 3 (3-11) BUN 9 (6-23) mg/dl Creatinine 0.63 (0.6-1.4) mg/dl Est Cr Clr Drug Dosing 155.1 ml/min Est GFR ( Amer) 116.5 ml/min Est GFR (Non-Af Amer) 100.5 ml/min BUN/Creatinine Ratio 14.3 (10-20) Glucose 75 (70-99(Fasting)) mg/dl POC Glucose 86 (70-99) mg/dl Calcium 7.9 L (8.5-10.1) mg/dl Magnesium 1.5 L (1.7-2.4) mg/dl Resident Activity Tracking Resident Involvement: Resident Care Provided Care Provided: Adult Hospital Medicine (1) Acute knee pain Laterality: right Qualified Code(s): M25.561 - Pain in right knee
[2021-11-19] MEDS: WARFARIN SOD 7.5 MG TAB PO SCH (17:30)
--- NOTE | 2021-11-19 17:42 | Billing Data ---
Date of Service November 19, 2021 Coding Level of Care Code 96950 Subseq Hosp Care Lvl 1
[2021-11-19] MEDS ORDERED: POTASSIUM CHLORIDE CRTAB 20 MEQ TABCR PO STA (19:38)
[2021-11-19] MEDS: EZETIMIBE 10 MG TABLET PO SCH (20:57)
[2021-11-19] MEDS: DUTASTERIDE PO SCH (20:57)
[2021-11-19] MEDS: TAMSULOSIN HCL 0.4 MG CAP PO SCH (20:57)
[2021-11-19] MEDS: ISOSORBIDE MONO EXTENDED REL 60 MG TABCR PO SCH (20:58)
[2021-11-19] MEDS: MAGNESIUM SULFATE / D5W 1 GM/100 ML BAG IV SCH ×2 (20:59→22:49)
[2021-11-19] MEDS: INSULIN GLARGINE SOLOSTAR 100 UNITS/ML 3 ML PEN SQ SCH (21:15)
[2021-11-20] MEDS: MAGNESIUM SULFATE / D5W 1 GM/100 ML BAG IV SCH (00:48)
[2021-11-20 09:24] LABS: BUN Creatinine Ratio 13.2 (10-20); Calcium 8.1 mg/dl (8.5-10.1); Creatinine Clr Calc Pharmacy 143.7 ml/min; Est GFR (African American) 112.9 ml/min; Est GFR (Non-African American) 97.4 ml/min; Magnesium 1.7 mg/dl (1.7-2.4); Potassium 4.3 mmol/L (3.5-5.1)
[2021-11-20 09:25] LABS: INR 3.8 (0.9-1.1); Prothrombin Time 37.7 Seconds (9.0-12.0)
[2021-11-20] MEDS: buPROPion SR 100 MG TABCR PO SCH (09:32)
[2021-11-20] MEDS: DOXYCYCLINE HYCLATE 100 MG CAP PO SCH ×2 (09:32→17:03)
[2021-11-20] MEDS: dilTIAZem ER 180 MG CAPCR PO SCH (09:33)
[2021-11-20] MEDS: DULoxetine HCL 60 MG CAP PO SCH (09:33)
[2021-11-20] MEDS: DICLOFENAC SOD 1% GEL 100 GM TUBE EXT SCH ×4 (09:33→21:11)
[2021-11-20] MEDS: EPLERENONE PO SCH (09:34)
[2021-11-20] MEDS: FUROSEMIDE 40 MG TAB PO SCH (09:34)
[2021-11-20] MEDS: GABAPENTIN 300 MG CAP PO SCH ×3 (09:34→21:12)
[2021-11-20] MEDS: PROPRANOLOL HCL 10 MG TAB PO SCH ×3 (09:35→21:12)
[2021-11-20] MEDS: PANTOprazole 40 MG TAB PO SCH ×2 (09:35→21:12)
[2021-11-20] MEDS: lisinopril 20 MG TAB PO SCH (09:35)
[2021-11-20] MEDS: ZINC SULFATE 220 MG CAPSULE PO SCH (09:36)
[2021-11-20] MEDS: MAGNESIUM OXIDE 400 MG TAB PO SCH ×2 (09:36→21:12)
[2021-11-20] MEDS: POTASSIUM CHLORIDE CRTAB 20 MEQ TABCR PO SCH ×2 (09:38→21:12)
[2021-11-20] MEDS: LACTULOSE SYRUP 30 GM/45 ML UDP PO SCH ×3 (09:46→21:11)
--- NOTE | 2021-11-20 10:22 | Hospitalist Progress Note ---
Date of Service November 20, 2021 Assessment & Plan (1) Ambulatory dysfunction: Plan: Chivo Herring ia a 70 yo male w/ complicated PMHx including DM2, paroxysmal aFib, depression/ anxiety, low back pain/chronic osteomyelitis of lumbar spine, chronic microcytic anemia, chronic liver failure w/ cirrhosis managed by GI through GI at [facility], CAD s/p CABG x3 in 1993 and again in 2010, NSTEMI on 08/12/20, BPH with LUTS, hypertension, GERD with esophageal varices, hyperaldos teronism, venous insufficiency with hypomagnesemia, and morbid obesity admitted to the hospital 11/13/21 for ambulatory dysfunction and weakness s/p fall. Ambulatory dysfunction and R sided weakness s/p fall - Patient with progressively worsening R sided weakness and ambulatory dysfunction over the past several weeks - 2 falls during hospitalization (bed alarm being utilized and placed order for 2 assist) - Etiology is uncertain - Brain MRI and Head CT showed no evidence of stroke (however CT was motion degraded) - near vasovagal event secondary to blood pooling (ie hepatic congestion) due to underlying cirrhosis is possible - underlying diabetic neuropathy with superimposed deconditioning certainly increase propensity to fall - Fall precautions - PT/OT ordered - Recommending rehab; patient is medically stable for discharge, placement pending Right knee contusion - Right knee XR 11/13/21: Soft tissue swelling and large joint effusion with no fracture identified. - Right knee CT 11/13/21: Showing evidence of impact type injury/fracture and hemarthrosis. - Ortho consulted: acute swelling secondary to fall makes sorting out acute vs. chronic changes difficult. No further intervention until swelling goes down. - Coumadin held in setting of potential hemarthrosis on admission--> resumed 11/15/21 - pain regimen ordered: Tylenol front line (< 3 grams per day) agent given concurrent cirrhosis. Narcotics for severe pain with prolonged intervals Liver Cirrhosis, hisotry of - likely source of pancytopenia + elevated AST Electrolyte abnormalities: Hypokalemia (resolved) and Hypomagnesia - K at 3.8 today; Mag low at 1.5 - Replacement mag and K ordered - Given cardiac hx, goal K > 4 and Mag > 2 - Continue to recheck BMP and mag in AM Chronic Conditions Atrial fibrillation, on chronic anticoagulation with warfarin: Rate controlled on diltiazem + propranolol. On admission, INR was subtherapeutic at 1.6. Microcytic anemia: Chronic. Likely due to alpha thalassemia Diabetes: Last A1c 6.5% on 10/27/21; continue home Lantus; DM2 diet Hypertension: Continue home isosorbide mononitrate, diltiazem, propranolol, and lisinopril Depression: Continue home wellbutrin and cymbalta CHF: Continue home eplerenone and lasix BPH: Continue home dutasteride and flomax. Recent cystoscopy 11/10/21; continue to follow with urology in outpatient setting. Hyperlipidemia: Continue home ezetimibe Liver cirrhosis: Continue home lactulose. ? Xifaxan compliance. Vertebral fractures: Continue home diclofenac gel and gabapentin Chronic osteomyelitis of lumbar spine: Continue home doxycycline GERD: continue home pantoprazole FENGI: DM2 diet DVT ppx: home coumadin Dispo: med/surg; SNF placement pending Code status: FULL CODE (2) Fall from standing: (3) Acute knee pain: (4) Severe obstructive sleep apnea: (5) Contusion of right knee: (6) Diabetes: (7) Anemia: (8) HTN (hypertension): (9) Hyperlipidemia: (10) Atrial flutter: Admission and Anticipated Discharge Date Admission Date: November 13, 2021 Supervising Physician Co-Signing Physician Notes I personally examined the patient and verified all barton points of history and exam, discussed case, and agree with decision making with Dr Dahl still waiting on placement. Notes biggest problem is right hand weakness followed by left hip pain followed by right knee pain/leg weakness. vitals noted nad breathing unlabored no accessory muscles good effort skin no rashes no pallor or icterus. 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 Negative Phalen's and Tinel's, no atrophy noted. Left hip tender in the pelvic musculature region of the buttock, in the neighborhood of piriformis. Right leg with 5 out of 5 strength overall, except for what seems to be limited by pain from knee. Knee skin lesions appear to be healing. Right hand weaknessonly isolated to the hand, without facial droop, without corresponding arm weaknesscerebrovascular extremely unlikely. Does not seem to have any sort of a dermatomal pattern and no radicular pain or numbnesstherefore cervical seems highly unlikely. In spite of the negative Phalen's and Tinel's, I suspect median or ulnar nerve compressioncock up splint and ongoing therapy. Left hip painappears to be pelvic stabilizer musculature. PT OT mobility, consider trial of OMT if does not improve with above. Right leg pain/weakness appears to relate to his skin abrasion/blister of his right knee. Continue to follow but I do not see any concerning focal motor weakness falls/weakness - PT/OT - for SNF once approved/bed available, referrals pending otherwise as above Subjective Patient seen and evaluated at bedside this morning. No acute events overnight. Reports persistent pain, most prominent in left hip at 6/10 and right lower extremity 4/10. No acute change in pain or weakness. Eating well and sleeping well. He had no questions after talking today. He had a assisted fall to the ground today when transferring to the chair. He felt weakness in his right leg similar to the fall prior to coming to the hospital. He did not have any increased pain after this fall. Review of Systems Review of Systems: Constitutional: denies fevers, chills, admits fatigue Pulm.: denies cough, shortness of breath Cardiac: denies chest pain, palpitations Abd.: denies abdominal pain : denies dysuria, urgency, frequency Physical Exam Physical Exam: GENERAL: No acute distress. Obese male, well developed. Vital signs reviewed. EYES: EOMI. Anicteric sclerae. HENT: Moist mucous membranes. RESPIRATORY: CTAB CARDIAC: RRR. No murmurs. SKIN: Warm, dry. NEUROLOGIC: Awake. A/O x4. Normal speech. Normal sensation. PSYCHIATRIC: Cooperative. Appropriate mood and affect. Results & Data Results & Data ([facility]) Vital Signs (Past 12 Hours) Vital Signs Temp Pulse Resp BP Pulse Ox 11/19/21 22:55 36.6 C 66 16 126/71 98 11/19/21 20:55 64 154/93 H 99 Resident Activity Tracking Resident Involvement: Resident Care Provided Care Provided: Adult Hospital Medicine (1) Acute knee pain Laterality: right Qualified Code(s): M25.561 - Pain in right knee
[2021-11-20] MEDS ORDERED: WARFARIN SOD 5 MG TAB PO SCH (16:00)
[2021-11-20] MEDS: MoRPHine SULFATE IR 15 MG TAB (IMMEDIATE RELEASE) PO PRN (17:01)
--- NOTE | 2021-11-20 18:32 | Billing Data ---
Date of Service November 20, 2021 Coding Level of Care Code 48328 Subseq Hosp Care Lvl 2
[2021-11-20] MEDS: INSULIN GLARGINE SOLOSTAR 100 UNITS/ML 3 ML PEN SQ SCH (21:08)
[2021-11-20] MEDS: DUTASTERIDE PO SCH (21:11)
[2021-11-20] MEDS: MELATONIN 3 MG TAB PO PRN (21:12)
[2021-11-20] MEDS: ISOSORBIDE MONO EXTENDED REL 60 MG TABCR PO SCH (21:12)
[2021-11-20] MEDS: EZETIMIBE 10 MG TABLET PO SCH (21:12)
[2021-11-20] MEDS: TAMSULOSIN HCL 0.4 MG CAP PO SCH (21:12)
[2021-11-21] MEDS: MoRPHine SULFATE IR 15 MG TAB (IMMEDIATE RELEASE) PO PRN ×2 (00:02→20:25)
--- NOTE | 2021-11-21 07:11 | Hospitalist Progress Note ---
Date of Service November 21, 2021 Assessment & Plan (1) Ambulatory dysfunction: Plan: Chivo Herring ia a 70 yo male w/ complicated PMHx including DM2, paroxysmal aFib, depression/ anxiety, low back pain/chronic osteomyelitis of lumbar spine, chronic microcytic anemia, chronic liver failure w/ cirrhosis managed by GI through GI at [facility], CAD s/p CABG x3 in 1993 and again in 2010, NSTEMI on 08/12/20, BPH with LUTS, hypertension, GERD with esophageal varices, hyperaldos teronism, venous insufficiency with hypomagnesemia, and morbid obesity admitted to the hospital 11/13/21 for ambulatory dysfunction and weakness s/p fall. Ambulatory dysfunction and R sided weakness s/p fall - Patient with progressively worsening R sided weakness and ambulatory dysfunction over the past several weeks - 2 falls during hospitalization (bed alarm being utilized and placed order for 2 assist) - Etiology is uncertain - Brain MRI and Head CT showed no evidence of stroke (however CT was motion degraded) - near vasovagal event secondary to blood pooling (ie hepatic congestion) due to underlying cirrhosis is possible - underlying diabetic neuropathy with superimposed deconditioning certainly increase propensity to fall - Fall precautions - PT/OT ordered - Recommending rehab; patient is medically stable for discharge, placement pending - Patient interested in discussing with case management in regards to other PT options as well, will discuss with Case management today Right knee contusion - Right knee XR 11/13/21: Soft tissue swelling and large joint effusion with no fracture identified. - Right knee CT 11/13/21: Showing evidence of impact type injury/fracture and hemarthrosis. - Ortho consulted: acute swelling secondary to fall makes sorting out acute vs. chronic changes difficult. No further intervention until swelling goes down. - Coumadin held in setting of potential hemarthrosis on admission--> resumed 11/15/21 - pain regimen ordered: Tylenol front line (< 3 grams per day) agent given concurrent cirrhosis. Narcotics for severe pain with prolonged intervals Liver Cirrhosis, history of - likely source of pancytopenia + elevated AST - Continue Propranolol - Continue lactulose Electrolyte abnormalities: Hypokalemia (resolved) and Hypomagnesia - K at 4.2 today; Mag low at 1.6 - Given cardiac hx, goal K > 4 and Mag > 2 - Continue to recheck BMP and mag in AM - Magnesium 3g IV given today Chronic Conditions Atrial fibrillation, on chronic anticoagulation with warfarin: Rate controlled on diltiazem + propranolol. On admission, INR was subtherapeutic at 1.6. Microcytic anemia: Chronic. Likely due to alpha thalassemia Diabetes: Last A1c 6.5% on 10/27/21; continue home Lantus; DM2 diet Hypertension: Continue home isosorbide mononitrate, diltiazem, propranolol, and lisinopril Depression: Continue home wellbutrin and cymbalta CHF: Continue home eplerenone and lasix BPH: Continue home dutasteride and flomax. Recent cystoscopy 11/10/21; continue to follow with urology in outpatient setting. Hyperlipidemia: Continue home ezetimibe Liver cirrhosis: Continue home lactulose. ? Xifaxan compliance. Vertebral fractures: Continue home diclofenac gel and gabapentin Chronic osteomyelitis of lumbar spine: Continue home doxycycline GERD: continue home pantoprazole FENGI: DM2 diet DVT ppx: home Coumadin Dispo: med/surg; SNF placement pending Code status: FULL CODE (2) Fall from standing: (3) Acute knee pain: (4) Severe obstructive sleep apnea: (5) Contusion of right knee: (6) Diabetes: (7) Anemia: (8) HTN (hypertension): (9) Hyperlipidemia: (10) Atrial flutter: Admission and Anticipated Discharge Date Admission Date: November 13, 2021 Supervising Physician Co-Signing Physician Notes I personally examined the patient and verified all barton points of history and exam, discussed case, and agree with decision making with Dr Shaver still waiting on placement. hand vitals noted nad breathing unlabored no accessory muscles good effort skin no rashes no pallor or icterus. 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 Does not seem to have any sort of a dermatomal pattern and no radicular pain or numbnessmost consistent with carpal tunnel mediated weaknessimproved surprisingly nicely overnight with use of cock up splint. Continue Left hip painappears to be pelvic stabilizer musculature. PT OT mobility, consider trial of OMT if does not improve with above. Right leg pain/weakness appears to relate to his skin abrasion/blister of his right knee. Continue to follow but I do not see any concerning focal motor weakness falls/weakness - PT/OT - for SNF once approved/bed available, referrals pending, stable for transfer once available otherwise as above Subjective Patient evaluated at the bedside this AM. Patient noting that he is feeling fairly well this morning. Feels his R side might feel slightly stronger this AM which is an improvement. Notes between the morphine and the Voltaren gel his pain is relatively controlled. He otherwise feels well and is without concerns this morning. Denies any fever, chills, SOB, chest pain, adominal pain. Review of Systems Review of Systems: All systems reviewed & are unremarkable except as noted in Subjective Physical Exam Physical Exam: GENERAL: No acute distress. Obese male, well developed. Vital signs reviewed. EYES: EOMI. Anicteric sclerae. HENT: Moist mucous membranes. RESPIRATORY: CTAB, no wheezing, crackles, or rales noted. CARDIAC: RRR. No murmurs. SKIN: Warm, dry. NEUROLOGIC: Awake. A/O x4. Normal speech. Normal sensation. PSYCHIATRIC: Cooperative. Appropriate mood and affect. Results & Data Results & Data ([facility]) Vital Signs (Past 12 Hours) Vital Signs Temp Pulse Resp BP Pulse Ox 11/20/21 22:49 36.4 C L 57 L 17 124/77 98 Resident Activity Tracking Resident Involvement: Resident Care Provided Care Provided: Adult Hospital Medicine (1) Acute knee pain Laterality: right Qualified Code(s): M25.561 - Pain in right knee
[2021-11-21 08:29] LABS: BUN Creatinine Ratio 14.7 (10-20); Calcium 7.9 mg/dl (8.5-10.1); Creatinine Clr Calc Pharmacy 130.3 ml/min; Est GFR (African American) 108.5 ml/min; Est GFR (Non-African American) 93.6 ml/min; Magnesium 1.6 mg/dl (1.7-2.4); Potassium 4.2 mmol/L (3.5-5.1)
[2021-11-21 08:34] LABS: INR 3.5 (0.9-1.1); Prothrombin Time 35.3 Seconds (9.0-12.0)
[2021-11-21 08:47] LABS: Mean Corpuscular Hgb Conc 31.6 g/dL (32-36)
[2021-11-21 08:56] LABS: Hematocrit (blood only) 28.5 % (42-52); Mean Corpuscular Hemoglobin 20.9 pg (25-34); Mean Corpuscular Volume 66.3 fL (80-100); RDW Coefficient of Variation 23.3 % (11.5-14.5); RDW Standard Deviation 55.6 fL (36.4-46.3); White Blood Count 3.66 K/uL (4.8-10.8)
[2021-11-21 09:09] LABS: Platelet Count 124 K/uL (130-400)
[2021-11-21 09:11] LABS: ALC (manual) 0.85 K/uL (1.2-3.4); ANC (manual) 2.22 K/uL (1.4-6.5); Eosinophils # (manual) 0.16 K/uL (0-0.5); Eosinophils % (manual) 4.5 %; Giant Platelets 1+; Hypochromasia Present; Lymphocytes # (manual) 0.85 K/uL (1.2-3.4); Lymphocytes % (manual) 23.2 %; Microcytosis Present; Monocytes # (manual) 0.42 K/uL (0.11-0.59); Monocytes % (manual) 11.6 %; Neutrophils # (manual) 2.22 K/uL (1.4-6.5); Neutrophils % (manual) 60.7 %; Platelet Estimate Decreased (Normal); Target Cells 2+
[2021-11-21] MEDS: buPROPion SR 100 MG TABCR PO SCH (09:26)
[2021-11-21] MEDS: MAGNESIUM SULFATE / D5W 1 GM/100 ML BAG IV SCH ×3 (09:26→13:47)
[2021-11-21] MEDS: DOXYCYCLINE HYCLATE 100 MG CAP PO SCH ×2 (09:26→16:49)
[2021-11-21] MEDS: DICLOFENAC SOD 1% GEL 100 GM TUBE EXT SCH ×4 (09:26→20:26)
[2021-11-21] MEDS: lisinopril 20 MG TAB PO SCH (09:27)
[2021-11-21] MEDS: dilTIAZem ER 180 MG CAPCR PO SCH (09:27)
[2021-11-21] MEDS: PROPRANOLOL HCL 10 MG TAB PO SCH ×3 (09:27→20:28)
[2021-11-21] MEDS: DULoxetine HCL 60 MG CAP PO SCH (09:27)
[2021-11-21] MEDS: EPLERENONE PO SCH (09:27)
[2021-11-21] MEDS: PANTOprazole 40 MG TAB PO SCH ×2 (09:27→20:27)
[2021-11-21] MEDS: LACTULOSE SYRUP 30 GM/45 ML UDP PO SCH ×3 (09:27→20:26)
[2021-11-21] MEDS: GABAPENTIN 300 MG CAP PO SCH ×3 (09:27→20:27)
[2021-11-21] MEDS: FUROSEMIDE 40 MG TAB PO SCH (09:27)
[2021-11-21] MEDS: POTASSIUM CHLORIDE CRTAB 20 MEQ TABCR PO SCH ×2 (09:27→20:28)
[2021-11-21] MEDS: MAGNESIUM OXIDE 400 MG TAB PO SCH ×2 (09:28→20:29)
[2021-11-21] MEDS: ZINC SULFATE 220 MG CAPSULE PO SCH (09:28)
--- NOTE | 2021-11-21 17:52 | Billing Data ---
Date of Service November 21, 2021 Coding Level of Care Code 08830 Subseq Hosp Care Lvl 1
[2021-11-21] MEDS: DUTASTERIDE PO SCH (20:26)
[2021-11-21] MEDS: MELATONIN 3 MG TAB PO PRN ×2 (20:26→23:20)
[2021-11-21] MEDS: EZETIMIBE 10 MG TABLET PO SCH (20:27)
[2021-11-21] MEDS: ISOSORBIDE MONO EXTENDED REL 60 MG TABCR PO SCH (20:27)
[2021-11-21] MEDS: INSULIN GLARGINE SOLOSTAR 100 UNITS/ML 3 ML PEN SQ SCH (20:29)
[2021-11-21] MEDS: TAMSULOSIN HCL 0.4 MG CAP PO SCH (20:29)
[2021-11-22 06:04] LABS: Mean Corpuscular Hgb Conc 30.6 g/dL (32-36); Nucleated RBC # (auto) 0.04 K/uL (0-0)
[2021-11-22 06:10] LABS: INR 2.6 (0.9-1.1); Prothrombin Time 26.6 Seconds (9.0-12.0)
[2021-11-22 06:14] LABS: Hematocrit (blood only) 28.1 % (42-52); Hemoglobin 8.6 g/dL (14.0-18.0); Mean Corpuscular Hemoglobin 20.6 pg (25-34); Mean Corpuscular Volume 67.4 fL (80-100); RDW Coefficient of Variation 23.4 % (11.5-14.5); RDW Standard Deviation 56.7 fL (36.4-46.3); Red Blood Count 4.17 M/uL (4.7-6.1); White Blood Count 4.01 K/uL (4.8-10.8)
[2021-11-22 06:25] LABS: BUN Creatinine Ratio 14.8 (10-20); Creatinine Clr Calc Pharmacy 120.6 ml/min; Est GFR (African American) 105.1 ml/min; Est GFR (Non-African American) 90.7 ml/min; Magnesium 1.7 mg/dl (1.7-2.4); Potassium 4.7 mmol/L (3.5-5.1)
[2021-11-22 06:35] LABS: Platelet Count 126 K/uL (130-400)
[2021-11-22 06:37] LABS: Basophils # (auto) 0.01 K/uL (0-0.2); Basophils % (auto) 0.2 %; Eosinophils # (auto) 0.24 K/uL (0-0.5); Giant Platelets 1+; Hypochromasia Present; Lymphocytes # (auto) 1.41 K/uL (1.2-3.4); Lymphocytes % (auto) 35.2 %; Monocytes # (auto) 0.54 K/uL (0.11-0.59); Monocytes % (auto) 13.5 %; Neutrophils # (auto) 1.81 K/uL (1.4-6.5); Neutrophils % (auto) 45.1 %; Platelet Estimate Decreased (Normal); Polychromasia 1+; Target Cells 1+
--- NOTE | 2021-11-22 07:34 | Hospitalist Progress Note ---
Date of Service November 22, 2021 Assessment & Plan (1) Ambulatory dysfunction: Plan: Chivo Herring ia a 70 yo male w/ complicated PMHx including DM2, paroxysmal aFib, depression/ anxiety, low back pain/chronic osteomyelitis of lumbar spine, chronic microcytic anemia, chronic liver failure w/ cirrhosis managed by GI through GI at [facility], CAD s/p CABG x3 in 1993 and again in 2010, NSTEMI on 08/12/20, BPH with LUTS, hypertension, GERD with esophageal varices, hyperaldos teronism, venous insufficiency with hypomagnesemia, and morbid obesity admitted to the hospital 11/13/21 for ambulatory dysfunction and weakness s/p fall. Ambulatory dysfunction and R sided weakness s/p fall - Patient with progressively worsening R sided weakness and ambulatory dysfunction over the past several weeks - 2 falls during hospitalization (bed alarm being utilized and placed order for 2 assist) - Etiology is uncertain - Brain MRI and Head CT showed no evidence of stroke (however CT was motion degraded) - near vasovagal event secondary to blood pooling (ie hepatic congestion) due to underlying cirrhosis is possible - underlying diabetic neuropathy with superimposed deconditioning certainly increase propensity to fall - Fall precautions - PT/OT ordered - Recommending rehab; patient is medically stable for discharge, placement pending Right knee contusion - Right knee XR 11/13/21: Soft tissue swelling and large joint effusion with no fracture identified. - Right knee CT 11/13/21: Showing evidence of impact type injury/fracture and hemarthrosis. - Ortho consulted: acute swelling secondary to fall makes sorting out acute vs. chronic changes difficult. No further intervention until swelling goes down. - Coumadin held in setting of potential hemarthrosis on admission--> resumed 11/15/21 - pain regimen ordered: Tylenol front line (< 3 grams per day) agent given concurrent cirrhosis. Narcotics for severe pain with prolonged intervals Liver Cirrhosis, history of - likely source of pancytopenia + elevated AST - Continue Propranolol - Continue lactulose Electrolyte abnormalities: Hypokalemia (resolved) and Hypomagnesia - Mag at 1.7 today - Given cardiac hx, goal K > 4 and Mag > 2 - Continue to recheck BMP and mag in AM - Magnesium 3g IV given today Chronic Conditions Atrial fibrillation, on chronic anticoagulation with warfarin: Rate controlled on diltiazem + propranolol. On admission, INR was subtherapeutic at 1.6. Microcytic anemia: Chronic. Likely due to alpha thalassemia Diabetes: Last A1c 6.5% on 10/27/21; continue home Lantus; DM2 diet Hypertension: Continue home isosorbide mononitrate, diltiazem, propranolol, and lisinopril Depression: Continue home wellbutrin and cymbalta CHF: Continue home eplerenone and lasix BPH: Continue home dutasteride and flomax. Recent cystoscopy 11/10/21; continue to follow with urology in outpatient setting. Hyperlipidemia: Continue home ezetimibe Liver cirrhosis: Continue home lactulose. ? Xifaxan compliance. Vertebral fractures: Continue home diclofenac gel and gabapentin Chronic osteomyelitis of lumbar spine: Continue home doxycycline GERD: continue home pantoprazole FENGI: DM2 diet DVT ppx: home Coumadin Dispo: med/surg; SNF placement pending Code status: FULL CODE (2) Fall from standing: (3) Acute knee pain: (4) Severe obstructive sleep apnea: (5) Contusion of right knee: (6) Diabetes: (7) Anemia: (8) HTN (hypertension): (9) Hyperlipidemia: (10) Atrial flutter: Admission and Anticipated Discharge Date Admission Date: November 13, 2021 Supervising Physician Co-Signing Physician Notes I personally examined the patient and verified all barton points of history and exam, discussed case, and agree with decision making with Dr Shaver sleeping peacefully when i see him. since hand weakness resolved overnight yesterday w cockup splint, opted to allow pt to rest vitals noted nad breathing unlabored no accessory muscles good effort skin no rashes no pallor or icterus. no focal deficits at rest Right hand weaknessonly isolated to the hand, without facial droop, without corresponding arm weaknesscerebrovascular extremely unlikely. Does not seem to have any sort of a dermatomal pattern and no radicular pain or numbnessmost consistent with carpal tunnel mediated weaknessimproved surprisingly nicely overnight with use of cock up splint. Continue spint, PT/OT Left hip painappears to be pelvic stabilizer musculature. PT OT mobility, consider trial of OMT if does not improve with above. Right leg pain/weakness appears to relate to his skin abrasion/blister of his right knee. falls/weakness - PT/OT - for SNF once approved/bed available, referrals pending, stable for transfer once available otherwise as above Subjective Patient evaluated at the bedside this AM. Patient noting that his L thigh was feeling more sore today vs his R. Feels positioning improves the pain. Denies fever, chills, SOB, chest pain. Review of Systems Review of Systems: All systems reviewed & are unremarkable except as noted in Subjective Physical Exam Physical Exam: GENERAL: No acute distress. Obese male, well developed. Vital signs reviewed. EYES: EOMI. Anicteric sclerae. HENT: Moist mucous membranes. RESPIRATORY: CTAB, no wheezing, crackles, or rales noted. CARDIAC: RRR. No murmurs. SKIN: Warm, dry. NEUROLOGIC: Awake. A/O x4. Normal speech. Normal sensation. PSYCHIATRIC: Cooperative. Appropriate mood and affect. Results & Data Results & Data ([facility]) Vital Signs (Past 12 Hours) Vital Signs Temp Pulse Resp BP BP Pulse Ox 11/22/21 07:22 36.3 C L 61 18 131/74 97 11/21/21 23:24 36.6 C 62 17 149/61 H 96 Resident Activity Tracking Resident Involvement: Resident Care Provided Care Provided: Adult Hospital Medicine (1) Acute knee pain Laterality: right Qualified Code(s): M25.561 - Pain in right knee
[2021-11-22] MEDS: FUROSEMIDE 40 MG TAB PO SCH (08:17)
[2021-11-22] MEDS: DULoxetine HCL 60 MG CAP PO SCH (08:17)
[2021-11-22] MEDS: EPLERENONE PO SCH (08:17)
[2021-11-22] MEDS: DOXYCYCLINE HYCLATE 100 MG CAP PO SCH ×2 (08:17→17:02)
[2021-11-22] MEDS: GABAPENTIN 300 MG CAP PO SCH ×3 (08:17→20:35)
[2021-11-22] MEDS: DICLOFENAC SOD 1% GEL 100 GM TUBE EXT SCH ×4 (08:17→20:37)
[2021-11-22] MEDS: lisinopril 20 MG TAB PO SCH (08:17)
[2021-11-22] MEDS: dilTIAZem ER 180 MG CAPCR PO SCH (08:17)
[2021-11-22] MEDS: buPROPion SR 100 MG TABCR PO SCH (08:17)
[2021-11-22] MEDS: PANTOprazole 40 MG TAB PO SCH ×2 (08:18→20:36)
[2021-11-22] MEDS: POTASSIUM CHLORIDE CRTAB 20 MEQ TABCR PO SCH ×2 (08:18→20:36)
[2021-11-22] MEDS: ZINC SULFATE 220 MG CAPSULE PO SCH (08:18)
[2021-11-22] MEDS: MAGNESIUM OXIDE 400 MG TAB PO SCH ×2 (08:18→20:35)
[2021-11-22] MEDS: PROPRANOLOL HCL 10 MG TAB PO SCH ×3 (08:18→20:36)
[2021-11-22] MEDS: LACTULOSE SYRUP 30 GM/45 ML UDP PO SCH ×3 (08:18→20:36)
[2021-11-22] MEDS: MAGNESIUM SULFATE / D5W 1 GM/100 ML BAG IV SCH ×3 (08:24→12:54)
--- NOTE | 2021-11-22 16:00 | Billing Data ---
Date of Service November 22, 2021 Coding Level of Care Code 70613 Subseq Hosp Care Lvl 1
[2021-11-22] MEDS: WARFARIN SOD 7.5 MG TAB PO SCH (16:05)
[2021-11-22] MEDS: MoRPHine SULFATE IR 15 MG TAB (IMMEDIATE RELEASE) PO PRN (16:05)
[2021-11-22] MEDS: EZETIMIBE 10 MG TABLET PO SCH (20:35)
[2021-11-22] MEDS: TAMSULOSIN HCL 0.4 MG CAP PO SCH (20:35)
[2021-11-22] MEDS: ISOSORBIDE MONO EXTENDED REL 60 MG TABCR PO SCH (20:36)
[2021-11-22] MEDS: DUTASTERIDE PO SCH (20:37)
[2021-11-22] MEDS: INSULIN GLARGINE SOLOSTAR 100 UNITS/ML 3 ML PEN SQ SCH (20:50)
--- NOTE | 2021-11-23 07:36 | Hospitalist Progress Note ---
Date of Service November 23, 2021 Assessment & Plan (1) Ambulatory dysfunction: Plan: Chivo Herring ia a 70 yo male w/ complicated PMHx including T2DM, paroxysmal aFib, depression/ anxiety, low back pain/chronic osteomyelitis of lumbar spine, chronic microcytic anemia, chronic liver failure w/ cirrhosis managed by GI through GI at [facility], CAD s/p CABG x3 in 1993 and again in 2010, NSTEMI on 08/12/20, BPH with LUTS, hypertension, GERD with esophageal varices, hyperaldo steronism, venous insufficiency with hypomagnesemia, and morbid obesity admitted to the hospital 11/13/21 for ambulatory dysfunction and weakness s/p fall. Ambulatory dysfunction and R sided weakness s/p fall - Patient with progressively worsening R sided weakness and ambulatory dysfunction over the past several weeks - 2 falls during hospitalization (bed alarm being utilized and placed order for 2 assist) - Etiology is uncertain - Brain MRI and Head CT showed no evidence of stroke (however CT was motion degraded) - near vasovagal event secondary to blood pooling (ie hepatic congestion) due to underlying cirrhosis is possible - underlying diabetic neuropathy with superimposed deconditioning certainly increase propensity to fall - Fall precautions - PT/OT ordered - Recommending rehab; patient is medically stable for discharge, placement pending Right knee contusion - Right knee XR 11/13/21: Soft tissue swelling and large joint effusion with no fracture identified. - Right knee CT 11/13/21: Showing evidence of impact type injury/fracture and hemarthrosis. - Ortho consulted: acute swelling secondary to fall makes sorting out acute vs. chronic changes difficult. No further intervention until swelling goes down. - Coumadin held in setting of potential hemarthrosis on admission--> resumed 11/15/21 - pain regimen ordered: Tylenol front line (< 2 grams per day) agent given concurrent cirrhosis. Narcotics for severe pain with prolonged intervals Liver Cirrhosis - likely source of pancytopenia + elevated AST - Continue Propranolol - Continue lactulose Hypomagnesia - Mag at 1.6 today - repleted - Given cardiac hx, goal K > 4 and Mag > 2 - Continue to recheck BMP and mag in AM Atrial fibrillation: on chronic anticoagulation with warfarin, continue. Rate controlled on diltiazem + propranolol. INR 2.1 on 11/23 - continue QOD monitoring. Pancytopenia: Chronic. Likely due to cirrhosis as well as alpha thalassemia. Monitor daily. Liver cirrhosis: Continue home lactulose. ? Xifaxan compliance. Diabetes: Last A1c 6.5% on 10/27/21; continue home Lantus; DM2 diet Hypertension: Continue home isosorbide mononitrate, diltiazem, propranolol, and lisinopril Depression: Continue home wellbutrin and cymbalta Chronic HFpEF: EF 50-55% in 11/2020. Continue home eplerenone and lasix BPH: Continue home dutasteride and flomax. Recent cystoscopy 11/10/21; continue to follow with urology in outpatient setting. Hyperlipidemia: Continue home ezetimibe Vertebral fractures: Continue home diclofenac gel and gabapentin Chronic osteomyelitis of lumbar spine: Continue home doxycycline GERD: continue home pantoprazole FEN/GI: DM2 diet DVT ppx: home Coumadin Dispo: med/surg; SNF placement pending Code status: FULL CODE (2) Fall from standing: (3) Acute knee pain: (4) Severe obstructive sleep apnea: (5) Contusion of right knee: (6) Diabetes: (7) Anemia: (8) HTN (hypertension): (9) Hyperlipidemia: (10) Atrial flutter: Admission and Anticipated Discharge Date Admission Date: November 13, 2021 Supervising Physician Co-Signing Physician Notes Attending attestation Pt seen and examined in concert with Dr. Conway. In agreement with the documented findings as noted in the resident documentation with any exceptions or additions as noted here. Patient reports requested d/c of lactulose because he was concerned about how much trouble he was causing nursing who had to help him clean up. Is aware that lactulose is preventing encephalopathy. Normally with variable adherence at home due to similar isseus. V/S as noted. On examination, S1/S2 nl RRR no MCG. CTAB. Abd NT/ND BS+ve Cirrhosis - encourage restart lactulose, which patient is willing to do. D/W nursing re: importance of continued medication to prevent decompensation of chronic disease. Right hand weakness - PT/OT - splint in place with good tolerance. Left hip pain - working with PT/OT well. Left hip painappears to be pelvic stabilizer musculature. PT OT mobility, consider trial of OMT if does not improve with above. Else see resident documentation as noted. Subjective No acute events overnight. No complaints this morning. Denies fever/chills, chest pain, SOB, N/V, abdominal pain, diarrhea, rash. Review of Systems Review of Systems: All systems reviewed & are unremarkable except as noted in HPI & below Physical Exam Physical Exam: General: A&Ox3. NAD. Cooperative. HEENT: Atraumatic, normocephalic. Pulm: CTAB A&P. -wheezes, -rales, -rhonchi. Symmetrical chest rise. No increase work of breathing. No respiratory distress. Minimal pedal edema bilaterally. Cardiac: RRR, -mrg. Radial pulses intact and symmetrical. Abdominal: soft, non-tender, non-distended, BS x 4 Skin: warm, dry, no rash Results & Data Results & Data ([facility]) Vital Signs (Past 12 Hours) Vital Signs Temp Pulse Resp BP Pulse Ox 11/22/21 23:09 36.5 C 61 18 139/65 95 Resident Activity Tracking Resident Involvement: Resident Care Provided Care Provided: Adult Hospital Medicine (1) Acute knee pain Laterality: right Qualified Code(s): M25.561 - Pain in right knee
[2021-11-23] MEDS: DOXYCYCLINE HYCLATE 100 MG CAP PO SCH ×2 (08:34→15:43)
[2021-11-23] MEDS: DICLOFENAC SOD 1% GEL 100 GM TUBE EXT SCH ×4 (08:34→20:41)
[2021-11-23] MEDS: dilTIAZem ER 180 MG CAPCR PO SCH (08:34)
[2021-11-23] MEDS: buPROPion SR 100 MG TABCR PO SCH (08:34)
[2021-11-23] MEDS: GABAPENTIN 300 MG CAP PO SCH ×3 (08:35→20:43)
[2021-11-23] MEDS: POTASSIUM CHLORIDE CRTAB 20 MEQ TABCR PO SCH ×2 (08:35→20:45)
[2021-11-23] MEDS: ZINC SULFATE 220 MG CAPSULE PO SCH (08:35)
[2021-11-23] MEDS: PROPRANOLOL HCL 10 MG TAB PO SCH ×3 (08:35→20:45)
[2021-11-23] MEDS: EPLERENONE PO SCH (08:35)
[2021-11-23] MEDS: DULoxetine HCL 60 MG CAP PO SCH (08:35)
[2021-11-23] MEDS: FUROSEMIDE 40 MG TAB PO SCH (08:35)
[2021-11-23] MEDS: LACTULOSE SYRUP 30 GM/45 ML UDP PO SCH ×3 (08:35→20:44)
[2021-11-23] MEDS: PANTOprazole 40 MG TAB PO SCH ×2 (08:35→20:44)
[2021-11-23] MEDS: MAGNESIUM OXIDE 400 MG TAB PO SCH ×2 (08:35→20:46)
[2021-11-23] MEDS: lisinopril 20 MG TAB PO SCH (08:35)
[2021-11-23 09:11] LABS: Mean Corpuscular Hgb Conc 30.7 g/dL (32-36); Nucleated RBC # (auto) 0.06 K/uL (0-0); Nucleated RBC % (auto) 1.6 %
[2021-11-23 09:19] LABS: INR 2.1 (0.9-1.1); Prothrombin Time 21.5 Seconds (9.0-12.0)
[2021-11-23 09:41] LABS: Hematocrit (blood only) 28.7 % (42-52); Hemoglobin 8.8 g/dL (14.0-18.0); Mean Corpuscular Hemoglobin 20.6 pg (25-34); Mean Corpuscular Volume 67.1 fL (80-100); RDW Coefficient of Variation 23.3 % (11.5-14.5); RDW Standard Deviation 55.6 fL (36.4-46.3); Red Blood Count 4.28 M/uL (4.7-6.1); White Blood Count 3.84 K/uL (4.8-10.8)
[2021-11-23 09:46] LABS: Platelet Count 125 K/uL (130-400)
[2021-11-23 09:48] LABS: Basophils # (auto) 0.01 K/uL (0-0.2); Basophils % (auto) 0.3 %; Eosinophils # (auto) 0.28 K/uL (0-0.5); Eosinophils % (auto) 7.3 %; Hypochromasia Present; Immature Granulocytes # (auto) 0.01 K/uL (0.00-0.02); Immature Granulocytes % (auto) 0.3 %; Lymphocytes # (auto) 1.22 K/uL (1.2-3.4); Lymphocytes % (auto) 31.8 %; Microcytosis Present; Monocytes # (auto) 0.47 K/uL (0.11-0.59); Monocytes % (auto) 12.2 %; Neutrophils # (auto) 1.85 K/uL (1.4-6.5); Neutrophils % (auto) 48.1 %; Platelet Estimate Decreased (Normal); Target Cells 2+
--- NOTE | 2021-11-23 10:33 | Ultrasound Report ---
RIGHT LOWER EXTREMITY VENOUS DOPPLER CLINICAL HISTORY: RLE swelling COMPARISON STUDY: Right lower extremity venous Doppler ultrasound June 30, 2013. TECHNIQUE: Sonography of the deep venous system of the right lower extremity was performed. Compress ion and augmentation were evaluated. FINDINGS: The right common femoral, superficial femoral and popliteal veins were compressible. Augme ntation was normal. Flow was shown within the deep calf vessels although evaluation of the calf vesse ls was suboptimal. Note is made of a small right popliteal fluid collection measures 4.6 x 0.8 x 2.3 cm. IMPRESSION: No evidence of deep venous thrombus within the right lower extremity although evaluation of the calf vessels is suboptimal. ACT 112: Negative or not required by law. Electronically signed by: Morgan Lemos M.D. 11/23/2021 10:32 AM
[2021-11-23] MEDS: MAGNESIUM SULFATE / D5W 1 GM/100 ML BAG IV SCH ×2 (11:20→13:04)
[2021-11-23] MEDS ORDERED: ACETAMINOPHEN 325 MG TAB PO PRN (14:17)
[2021-11-23] MEDS: WARFARIN SOD 7.5 MG TAB PO SCH (15:42)
[2021-11-23] MEDS: EZETIMIBE 10 MG TABLET PO SCH (20:42)
[2021-11-23] MEDS: DUTASTERIDE PO SCH (20:42)
[2021-11-23] MEDS: ISOSORBIDE MONO EXTENDED REL 60 MG TABCR PO SCH (20:43)
[2021-11-23] MEDS: TAMSULOSIN HCL 0.4 MG CAP PO SCH (20:45)
[2021-11-23] MEDS: MELATONIN 3 MG TAB PO PRN (20:51)
[2021-11-23] MEDS: MoRPHine SULFATE IR 15 MG TAB (IMMEDIATE RELEASE) PO PRN (20:51)
[2021-11-23] MEDS: INSULIN GLARGINE SOLOSTAR 100 UNITS/ML 3 ML PEN SQ SCH (20:57)
[2021-11-24 08:01] LABS: Mean Corpuscular Hgb Conc 30.6 g/dL (32-36)
[2021-11-24 08:08] LABS: INR 2.2 (0.9-1.1); Prothrombin Time 22.6 Seconds (9.0-12.0)
[2021-11-24 08:17] LABS: BUN Creatinine Ratio 15.2 (10-20); Calcium 7.6 mg/dl (8.5-10.1); Est GFR (African American) 114.3 ml/min; Est GFR (Non-African American) 98.6 ml/min; Magnesium 1.5 mg/dl (1.7-2.4); Potassium 3.7 mmol/L (3.5-5.1)
[2021-11-24 08:19] LABS: Hematocrit (blood only) 28.1 % (42-52); Hemoglobin 8.6 g/dL (14.0-18.0); Mean Corpuscular Hemoglobin 20.3 pg (25-34); Mean Corpuscular Volume 66.4 fL (80-100); RDW Coefficient of Variation 23.6 % (11.5-14.5); RDW Standard Deviation 56.7 fL (36.4-46.3); Red Blood Count 4.23 M/uL (4.7-6.1); White Blood Count 3.64 K/uL (4.8-10.8)
--- NOTE | 2021-11-24 08:20 | Hospitalist Progress Note ---
Date of Service November 24, 2021 Assessment & Plan (1) Ambulatory dysfunction: Plan: Chivo Herring ia a 70 yo male w/ complicated PMHx including T2DM, paroxysmal aFib, depression/ anxiety, low back pain/chronic osteomyelitis of lumbar spine, chronic microcytic anemia, chronic liver failure w/ cirrhosis managed by GI through GI at [facility], CAD s/p CABG x3 in 1993 and again in 2010, NSTEMI on 08/12/20, BPH with LUTS, hypertension, GERD with esophageal varices, hyperaldo steronism, venous insufficiency with hypomagnesemia, and morbid obesity admitted to the hospital 11/13/21 for ambulatory dysfunction and weakness s/p fall. Ambulatory dysfunction and R sided weakness s/p fall - Patient with progressively worsening R sided weakness and ambulatory dysfunction over the past several weeks - 2 falls during hospitalization (bed alarm being utilized and placed order for 2 assist) - Etiology is uncertain - Brain MRI and Head CT showed no evidence of stroke (however CT was motion degraded) - near vasovagal event secondary to blood pooling (ie hepatic congestion) due to underlying cirrhosis is possible - underlying diabetic neuropathy with superimposed deconditioning certainly increase propensity to fall - Fall precautions - PT/OT ordered - Recommending rehab; patient is medically stable for discharge, placement pending Right knee contusion - Right knee XR 11/13/21: Soft tissue swelling and large joint effusion with no fracture identified. - Right knee CT 11/13/21: Showing evidence of impact type injury/fracture and hemarthrosis. - Ortho consulted: acute swelling secondary to fall makes sorting out acute vs. chronic changes difficult. No further intervention until swelling goes down. - Coumadin held in setting of potential hemarthrosis on admission--> resumed 11/15/21 - pain regimen ordered: Tylenol front line (< 2 grams per day) agent given concurrent cirrhosis. Narcotics for severe pain with prolonged intervals Liver Cirrhosis - likely source of pancytopenia + elevated AST - Continue Propranolol - Continue lactulose Hypomagnesia - Mag at 1.5 today - repleted - Given cardiac hx, goal K > 4 and Mag > 2 - Continue to recheck BMP and mag in AM Atrial fibrillation: on chronic anticoagulation with warfarin, continue. Rate controlled on diltiazem + propranolol. INR 2.1 on 11/23 - continue QOD monitoring. Pancytopenia: Chronic. Likely due to cirrhosis as well as alpha thalassemia. Monitor daily. Liver cirrhosis: Continue home lactulose. ? Xifaxan compliance. Diabetes: Last A1c 6.5% on 10/27/21; continue home Lantus; DM2 diet Hypertension: Continue home isosorbide mononitrate, diltiazem, propranolol, and lisinopril Depression: Continue home wellbutrin and cymbalta Chronic HFpEF: EF 50-55% in 11/2020. Continue home eplerenone and lasix BPH: Continue home dutasteride and flomax. Recent cystoscopy 11/10/21; continue to follow with urology in outpatient setting. Hyperlipidemia: Continue home ezetimibe Vertebral fractures: Continue home diclofenac gel and gabapentin Chronic osteomyelitis of lumbar spine: Continue home doxycycline GERD: continue home pantoprazole FEN/GI: DM2 diet DVT ppx: home Coumadin Dispo: med/surg; SNF placement pending Code status: FULL CODE (2) Fall from standing: (3) Acute knee pain: (4) Severe obstructive sleep apnea: (5) Contusion of right knee: (6) Diabetes: (7) Anemia: (8) HTN (hypertension): (9) Hyperlipidemia: (10) Atrial flutter: Admission and Anticipated Discharge Date Admission Date: November 13, 2021 Supervising Physician Co-Signing Physician Notes Attending attestation Pt seen and examined in concert with Dr. Conway. In agreement with the documented findings as noted in the resident documentation with any exceptions or additions as noted here. Tolerating present dose of lactulose without considerable increase in bowel movements reported. Pain well controlled and tolerating work w/ PT well. V/S as noted. On examination, S1/S2 nl RRR no MCG. CTAB. Abd NT/ND BS+ve Right hand weakness - PT/OT - splint in place with good tolerance. Left hip pain - working with PT/OT well. Left hip painappears to be pelvic stabilizer musculature. PT OT mobility, consider trial of OMT if does not improve with above. Cirrhosis - continue lactulose Else see resident documentation as noted. Subjective No acute events overnight. No complaints this morning. Denies fever/chills, chest pain, SOB, N/V, abdominal pain, diarrhea, rash. Review of Systems Review of Systems: All systems reviewed & are unremarkable except as noted in HPI & below Physical Exam Physical Exam: General: A&Ox3. NAD. Cooperative. HEENT: Atraumatic, normocephalic. Pulm: CTAB A&P. -wheezes, -rales, -rhonchi. Symmetrical chest rise. No increase work of breathing. No respiratory distress. Cardiac: RRR, -mrg. Radial pulses intact and symmetrical. No LE edema. Abdominal: soft, non-tender, non-distended, BS x 4 Skin: warm, dry, no rash Results & Data Results & Data ([facility]) Vital Signs (Past 12 Hours) Vital Signs Temp Pulse Resp BP Pulse Ox 11/24/21 07:00 36.4 C L 62 18 161/97 H 95 Resident Activity Tracking Resident Involvement: Resident Care Provided Care Provided: Adult Hospital Medicine (1) Acute knee pain Laterality: right Qualified Code(s): M25.561 - Pain in right knee
[2021-11-24 08:35] LABS: Anisocytosis Present; Basophils # (auto) 0.01 K/uL (0-0.2); Basophils % (auto) 0.3 %; Eosinophils # (auto) 0.25 K/uL (0-0.5); Eosinophils % (auto) 6.9 %; Hypochromasia Present; Lymphocytes # (auto) 1.16 K/uL (1.2-3.4); Lymphocytes % (auto) 31.9 %; Microcytosis Present; Monocytes # (auto) 0.52 K/uL (0.11-0.59); Monocytes % (auto) 14.3 %; Neutrophils % (auto) 46.6 %; Platelet Count 149 K/uL (130-400); Platelet Estimate Decreased (Normal); Target Cells 2+
[2021-11-24] MEDS: DOXYCYCLINE HYCLATE 100 MG CAP PO SCH ×2 (08:51→16:18)
[2021-11-24] MEDS: dilTIAZem ER 180 MG CAPCR PO SCH (08:52)
[2021-11-24] MEDS: buPROPion SR 100 MG TABCR PO SCH (08:52)
[2021-11-24] MEDS: DICLOFENAC SOD 1% GEL 100 GM TUBE EXT SCH ×4 (08:52→21:02)
[2021-11-24] MEDS: DULoxetine HCL 60 MG CAP PO SCH (08:53)
[2021-11-24] MEDS: GABAPENTIN 300 MG CAP PO SCH ×3 (08:54→21:03)
[2021-11-24] MEDS: EPLERENONE PO SCH (08:54)
[2021-11-24] MEDS: LACTULOSE SYRUP 30 GM/45 ML UDP PO SCH ×3 (08:54→21:05)
[2021-11-24] MEDS: FUROSEMIDE 40 MG TAB PO SCH (08:54)
[2021-11-24] MEDS: PANTOprazole 40 MG TAB PO SCH ×2 (08:55→21:02)
[2021-11-24] MEDS: lisinopril 20 MG TAB PO SCH (08:55)
[2021-11-24] MEDS: POTASSIUM CHLORIDE CRTAB 20 MEQ TABCR PO SCH ×2 (08:55→21:02)
[2021-11-24] MEDS: ZINC SULFATE 220 MG CAPSULE PO SCH (08:56)
[2021-11-24] MEDS: PROPRANOLOL HCL 10 MG TAB PO SCH ×3 (08:56→21:02)
[2021-11-24] MEDS: MAGNESIUM OXIDE 400 MG TAB PO SCH ×2 (08:56→21:02)
[2021-11-24] MEDS: MAGNESIUM SULFATE / D5W 1 GM/100 ML BAG IV SCH ×4 (09:39→16:15)
[2021-11-24] MEDS: WARFARIN SOD 7.5 MG TAB PO SCH (16:18)
[2021-11-24] MEDS: DUTASTERIDE PO SCH (21:02)
[2021-11-24] MEDS: TAMSULOSIN HCL 0.4 MG CAP PO SCH (21:02)
[2021-11-24] MEDS: MoRPHine SULFATE IR 15 MG TAB (IMMEDIATE RELEASE) PO PRN (21:02)
[2021-11-24] MEDS: EZETIMIBE 10 MG TABLET PO SCH (21:03)
[2021-11-24] MEDS: ISOSORBIDE MONO EXTENDED REL 60 MG TABCR PO SCH (21:03)
[2021-11-24] MEDS: MELATONIN 3 MG TAB PO PRN (21:03)
[2021-11-24] MEDS: INSULIN GLARGINE SOLOSTAR 100 UNITS/ML 3 ML PEN SQ SCH (21:06)
[2021-11-25 06:07] LABS: Mean Corpuscular Hgb Conc 31.1 g/dL (32-36); Nucleated RBC # (auto) 0.04 K/uL (0-0)
[2021-11-25 06:16] LABS: Hematocrit (blood only) 28.6 % (42-52); Hemoglobin 8.9 g/dL (14.0-18.0); Mean Corpuscular Hemoglobin 20.6 pg (25-34); Mean Corpuscular Volume 66.4 fL (80-100); RDW Coefficient of Variation 23.4 % (11.5-14.5); RDW Standard Deviation 55.5 fL (36.4-46.3); Red Blood Count 4.31 M/uL (4.7-6.1); White Blood Count 3.91 K/uL (4.8-10.8)
[2021-11-25 06:26] LABS: Platelet Count 126 K/uL (130-400)
[2021-11-25 06:28] LABS: BUN Creatinine Ratio 15.2 (10-20); Calcium 7.7 mg/dl (8.5-10.1); Est GFR (African American) 114.3 ml/min; Est GFR (Non-African American) 98.6 ml/min; Magnesium 1.7 mg/dl (1.7-2.4); Potassium 4.1 mmol/L (3.5-5.1)
[2021-11-25 06:29] LABS: Basophils # (auto) 0.01 K/uL (0-0.2); Basophils % (auto) 0.3 %; Eosinophils # (auto) 0.25 K/uL (0-0.5); Eosinophils % (auto) 6.4 %; Immature Granulocytes # (auto) 0.01 K/uL (0.00-0.02); Immature Granulocytes % (auto) 0.3 %; Lymphocytes # (auto) 1.25 K/uL (1.2-3.4); Microcytosis Present; Monocytes # (auto) 0.45 K/uL (0.11-0.59); Monocytes % (auto) 11.5 %; Neutrophils # (auto) 1.94 K/uL (1.4-6.5); Neutrophils % (auto) 49.5 %; Platelet Estimate Decreased (Normal); Polychromasia 1+; Target Cells 1+
--- NOTE | 2021-11-25 07:04 | Hospitalist Progress Note ---
Date of Service November 25, 2021 Assessment & Plan (1) Ambulatory dysfunction: Plan: Chivo Herring ia a 70 yo male w/ complicated PMHx including T2DM, paroxysmal aFib, depression/ anxiety, low back pain/chronic osteomyelitis of lumbar spine, chronic microcytic anemia, chronic liver failure w/ cirrhosis managed by GI through GI at [facility], [place], CAD s/p CABG x3 in 1993 and again in 2010, NSTEMI on 08/12/20, BPH with LUTS, hypertension, GERD with esophageal varices, hyperaldo steronism, venous insufficiency with hypomagnesemia, and morbid obesity admitted to the hospital 11/13/21 for ambulatory dysfunction and weakness s/p fall. Ambulatory dysfunction and R sided weakness s/p fall - Patient with progressively worsening R sided weakness and ambulatory dysfunction over the past several weeks - 2 falls during hospitalization (bed alarm being utilized and placed order for 2 assist) - Etiology is uncertain - Brain MRI and Head CT showed no evidence of stroke (however CT was motion degraded) - near vasovagal event secondary to blood pooling (ie hepatic congestion) due to underlying cirrhosis is possible - underlying diabetic neuropathy with superimposed deconditioning certainly increase propensity to fall - Fall precautions - PT/OT ordered - Recommending rehab; patient is medically stable for discharge, placement pending Bilateral Hip Osteoarthritis With intermittent pain. Confirmed via XR. - Voltaren gel PRN ordered Right knee contusion - Right knee XR 11/13/21: Soft tissue swelling and large joint effusion with no fracture identified. - Right knee CT 11/13/21: Showing evidence of impact type injury/fracture and hemarthrosis. - Ortho consulted: acute swelling secondary to fall makes sorting out acute vs. chronic changes difficult. No further intervention until swelling goes down. - Coumadin held in setting of potential hemarthrosis on admission--> resumed 11/15/21 - pain regimen ordered: Tylenol front line (< 2 grams per day) agent given concurrent cirrhosis. Narcotics for severe pain with prolonged intervals - Voltaren gel PRN ordered as stated above Liver Cirrhosis - likely source of pancytopenia + elevated AST - Continue Propranolol - Continue lactulose Hypomagnesia - Mag at 1.7 today - repleted - Given cardiac hx, goal K > 4 and Mag > 2 - Continue to recheck BMP and mag in AM Atrial fibrillation: on chronic anticoagulation with warfarin, continue. Rate controlled on diltiazem + propranolol. INR 2.1 on 11/23 - continue QOD monitoring. Pancytopenia: Chronic. Likely due to cirrhosis as well as alpha thalassemia. Monitor daily. Liver cirrhosis: Continue home lactulose. ? Xifaxan compliance. Diabetes: Last A1c 6.5% on 10/27/21; continue home Lantus; DM2 diet Hypertension: Continue home isosorbide mononitrate, diltiazem, propranolol, and lisinopril Depression: Continue home wellbutrin and cymbalta Chronic HFpEF: EF 50-55% in 11/2020. Continue home eplerenone and lasix BPH: Continue home dutasteride and flomax. Recent cystoscopy 11/10/21; continue to follow with urology in outpatient setting. Hyperlipidemia: Continue home ezetimibe Vertebral fractures: Continue home diclofenac gel and gabapentin Chronic osteomyelitis of lumbar spine: Continue home doxycycline GERD: continue home pantoprazole FEN/GI: DM2 diet DVT ppx: home Coumadin Dispo: med/surg; SNF placement pending Code status: FULL CODE (2) Fall from standing: (3) Acute knee pain: (4) Severe obstructive sleep apnea: (5) Contusion of right knee: (6) Diabetes: (7) Anemia: (8) HTN (hypertension): (9) Hyperlipidemia: (10) Atrial flutter: Admission and Anticipated Discharge Date Admission Date: November 13, 2021 Supervising Physician Co-Signing Physician Notes Attending attestation Pt seen and examined in concert with Dr. Conway. In agreement with the documented findings as noted in the resident documentation with any exceptions or additions as noted here. Tolerating present dose of lactulose without complaint. Some mild exacerbation of chronic left knee and hip pain following waking from sleep overnight without sensory or functional change. V/S as noted. On examination, S1/S2 nl RRR no MCG. CTAB. Abd NT/ND BS+ve Right hand weakness - PT/OT - splint in place with good tolerance. Left hip pain - working with PT/OT well. Left hip painappears to be pelvic stabilizer musculature. PT OT mobility, consider trial of OMT if does not improve with above. Add voltaren topical Cirrhosis - continue lactulose Else see resident documentation as noted. Subjective No acute events overnight. No complaints this morning. Denies fever/chills, chest pain, SOB, N/V, abdominal pain, diarrhea, rash. Review of Systems Review of Systems: All systems reviewed & are unremarkable except as noted in HPI & below Physical Exam Physical Exam: General: A&Ox3. NAD. Cooperative. HEENT: Atraumatic, normocephalic. Pulm: CTAB A&P. -wheezes, -rales, -rhonchi. Symmetrical chest rise. No increase work of breathing. No respiratory distress. Cardiac: RRR, -mrg. Radial pulses intact and symmetrical. No LE edema. Abdominal: soft, non-tender, non-distended, BS x 4 Skin: warm, dry, no rash Results & Data Results & Data ([facility]) Vital Signs (Past 12 Hours) Vital Signs Temp Pulse Resp BP Pulse Ox 11/24/21 21:00 36.6 C 63 18 131/86 97 Resident Activity Tracking Resident Involvement: Resident Care Provided Care Provided: Adult Hospital Medicine (1) Acute knee pain Laterality: right Qualified Code(s): M25.561 - Pain in right knee
[2021-11-25] MEDS: DOXYCYCLINE HYCLATE 100 MG CAP PO SCH ×2 (07:48→16:15)
[2021-11-25] MEDS: buPROPion SR 100 MG TABCR PO SCH (07:48)
[2021-11-25] MEDS: dilTIAZem ER 180 MG CAPCR PO SCH (07:48)
[2021-11-25] MEDS: DULoxetine HCL 60 MG CAP PO SCH (07:49)
[2021-11-25] MEDS: PANTOprazole 40 MG TAB PO SCH ×2 (07:49→21:26)
[2021-11-25] MEDS: FUROSEMIDE 40 MG TAB PO SCH (07:49)
[2021-11-25] MEDS: GABAPENTIN 300 MG CAP PO SCH ×3 (07:49→21:25)
[2021-11-25] MEDS: lisinopril 20 MG TAB PO SCH (07:49)
[2021-11-25] MEDS: ZINC SULFATE 220 MG CAPSULE PO SCH (07:50)
[2021-11-25] MEDS: POTASSIUM CHLORIDE CRTAB 20 MEQ TABCR PO SCH ×2 (07:50→21:27)
[2021-11-25] MEDS: LACTULOSE SYRUP 30 GM/45 ML UDP PO SCH ×3 (07:50→21:28)
[2021-11-25] MEDS: PROPRANOLOL HCL 10 MG TAB PO SCH ×3 (07:50→21:26)
[2021-11-25] MEDS: EPLERENONE PO SCH (07:51)
[2021-11-25] MEDS: DICLOFENAC SOD 1% GEL 100 GM TUBE EXT SCH ×4 (07:54→21:25)
[2021-11-25] MEDS: MoRPHine SULFATE IR 15 MG TAB (IMMEDIATE RELEASE) PO PRN ×2 (07:54→21:24)
[2021-11-25] MEDS: MAGNESIUM OXIDE 400 MG TAB PO SCH ×2 (11:26→21:28)
[2021-11-25] MEDS: MAGNESIUM SULFATE / D5W 1 GM/100 ML BAG IV SCH ×2 (13:42→16:12)
[2021-11-25] MEDS: WARFARIN SOD 7.5 MG TAB PO SCH (16:15)
[2021-11-25] MEDS: MELATONIN 3 MG TAB PO PRN (21:24)
[2021-11-25] MEDS: ISOSORBIDE MONO EXTENDED REL 60 MG TABCR PO SCH (21:26)
[2021-11-25] MEDS: TAMSULOSIN HCL 0.4 MG CAP PO SCH (21:27)
[2021-11-25] MEDS: DUTASTERIDE PO SCH (21:30)
[2021-11-25] MEDS: INSULIN GLARGINE SOLOSTAR 100 UNITS/ML 3 ML PEN SQ SCH (21:33)
[2021-11-25] MEDS: EZETIMIBE 10 MG TABLET PO SCH (21:36)
[2021-11-26 06:50] LABS: BUN Creatinine Ratio 15.8 (10-20); Creatinine Clr Calc Pharmacy 128.6 ml/min; Est GFR (African American) 107.9 ml/min; Est GFR (Non-African American) 93.1 ml/min; Magnesium 1.8 mg/dl (1.7-2.4); Potassium 4.4 mmol/L (3.5-5.1)
--- NOTE | 2021-11-26 06:50 | Hospitalist Progress Note ---
Date of Service November 26, 2021 Assessment & Plan (1) Ambulatory dysfunction: Plan: Chivo Herring ia a 70 yo male w/ complicated PMHx including T2DM, paroxysmal aFib, depression/ anxiety, low back pain/chronic osteomyelitis of lumbar spine, chronic microcytic anemia, chronic liver failure w/ cirrhosis managed by GI through GI at [facility], CAD s/p CABG x3 in 1993 and again in 2010, NSTEMI on 08/12/20, BPH with LUTS, hypertension, GERD with esophageal varices, hyperaldo steronism, venous insufficiency with hypomagnesemia, and morbid obesity admitted to the hospital 11/13/21 for ambulatory dysfunction and weakness s/p fall. Ambulatory dysfunction and R sided weakness s/p fall - Patient with progressively worsening R sided weakness and ambulatory dysfunction over the past several weeks - 2 falls during hospitalization (bed alarm being utilized and placed order for 2 assist) - Etiology is uncertain - Brain MRI and Head CT showed no evidence of stroke (however CT was motion degraded) - near vasovagal event secondary to blood pooling (ie hepatic congestion) due to underlying cirrhosis is possible - underlying diabetic neuropathy with superimposed deconditioning certainly increase propensity to fall - Fall precautions - PT/OT ordered - Recommending rehab; patient is medically stable for discharge, placement pending Bilateral Hip Osteoarthritis With intermittent pain. Confirmed via XR. - Voltaren gel PRN ordered Right knee contusion - Right knee XR 11/13/21: Soft tissue swelling and large joint effusion with no fracture identified. - Right knee CT 11/13/21: Showing evidence of impact type injury/fracture and hemarthrosis. - Ortho consulted: acute swelling secondary to fall makes sorting out acute vs. chronic changes difficult. No further intervention until swelling goes down. - Coumadin held in setting of potential hemarthrosis on admission--> resumed 11/15/21 - pain regimen ordered: Tylenol front line (< 2 grams per day) agent given concurrent cirrhosis. Narcotics for severe pain with prolonged intervals - Voltaren gel PRN ordered as stated above Liver Cirrhosis - likely source of pancytopenia + elevated AST - Continue Propranolol - Continue lactulose Hypomagnesia - Mag at 1.8 today - repleted - Given cardiac hx, goal K > 4 and Mag > 2 - Continue to recheck BMP and mag in AM Atrial fibrillation: on chronic anticoagulation with warfarin, continue. Rate controlled on diltiazem + propranolol. INR 2.1 on 11/23 - continue QOD monitoring. Pancytopenia: Chronic. Likely due to cirrhosis as well as alpha thalassemia. Monitor daily. Liver cirrhosis: Continue home lactulose. ? Xifaxan compliance. Diabetes: Last A1c 6.5% on 10/27/21; continue home Lantus; DM2 diet Hypertension: Continue home isosorbide mononitrate, diltiazem, propranolol, and lisinopril Depression: Continue home wellbutrin and cymbalta Chronic HFpEF: EF 50-55% in 11/2020. Continue home eplerenone and lasix BPH: Continue home dutasteride and flomax. Recent cystoscopy 11/10/21; continue to follow with urology in outpatient setting. Hyperlipidemia: Continue home ezetimibe Vertebral fractures: Continue home diclofenac gel and gabapentin Chronic osteomyelitis of lumbar spine: Continue home doxycycline GERD: continue home pantoprazole FEN/GI: DM2 diet DVT ppx: home Coumadin Dispo: med/surg; SNF placement pending Code status: FULL CODE (2) Fall from standing: (3) Acute knee pain: (4) Severe obstructive sleep apnea: (5) Contusion of right knee: (6) Diabetes: (7) Anemia: (8) HTN (hypertension): (9) Hyperlipidemia: (10) Atrial flutter: Admission and Anticipated Discharge Date Admission Date: November 13, 2021 Supervising Physician Co-Signing Physician Notes Attending attestation Pt seen and examined in concert with Dr. Conway. In agreement with the documented findings as noted in the resident documentation with any exceptions or additions as noted here. Mild chronic left hip/knee pain controlled with current regimen. No other acute complaints. V/S as noted. On examination, S1/S2 nl RRR no MCG. CTAB. Abd NT/ND BS+ve Right hand weakness - PT/OT - splint in place with good tolerance. Left hip pain - PT/OT - continue topical voltaren atop current pain medication regimen Cirrhosis - continue lactulose Pending placement Else see resident documentation as noted. Subjective No acute events overnight. No complaints this morning. Denies fever/chills, chest pain, SOB, N/V, abdominal pain, diarrhea, rash. Review of Systems Review of Systems: All systems reviewed & are unremarkable except as noted in HPI & below Physical Exam Physical Exam: General: A&Ox3. NAD. Cooperative. HEENT: Atraumatic, normocephalic. Pulm: CTAB A&P. -wheezes, -rales, -rhonchi. Symmetrical chest rise. No increase work of breathing. No respiratory distress. Cardiac: RRR, -mrg. Radial pulses intact and symmetrical. No LE edema. Abdominal: soft, non-tender, non-distended, BS x 4 Skin: warm, dry, no rash Results & Data Results & Data ([facility]) Vital Signs (Past 12 Hours) Vital Signs Temp Pulse Resp BP Pulse Ox 11/25/21 22:30 36.5 C 65 16 114/64 97 11/25/21 21:20 62 130/68 Resident Activity Tracking Resident Involvement: Resident Care Provided Care Provided: Adult Hospital Medicine (1) Acute knee pain Laterality: right Qualified Code(s): M25.561 - Pain in right knee
[2021-11-26 06:51] LABS: Prothrombin Time 29.9 Seconds (9.0-12.0)
[2021-11-26] MEDS: ZINC SULFATE 220 MG CAPSULE PO SCH (08:08)
[2021-11-26] MEDS: MAGNESIUM SULFATE / D5W 1 GM/100 ML BAG IV SCH ×2 (08:08→10:34)
[2021-11-26] MEDS: lisinopril 20 MG TAB PO SCH (08:08)
[2021-11-26] MEDS: DOXYCYCLINE HYCLATE 100 MG CAP PO SCH ×2 (08:09→17:31)
[2021-11-26] MEDS: POTASSIUM CHLORIDE CRTAB 20 MEQ TABCR PO SCH ×2 (08:09→21:42)
[2021-11-26] MEDS: GABAPENTIN 300 MG CAP PO SCH ×3 (08:09→21:43)
[2021-11-26] MEDS: dilTIAZem ER 180 MG CAPCR PO SCH (08:09)
[2021-11-26] MEDS: buPROPion SR 100 MG TABCR PO SCH (08:09)
[2021-11-26] MEDS: PANTOprazole 40 MG TAB PO SCH ×2 (08:10→21:43)
[2021-11-26] MEDS: EPLERENONE PO SCH (08:10)
[2021-11-26] MEDS: DULoxetine HCL 60 MG CAP PO SCH (08:10)
[2021-11-26] MEDS: FUROSEMIDE 40 MG TAB PO SCH (08:10)
[2021-11-26] MEDS: PROPRANOLOL HCL 10 MG TAB PO SCH ×3 (08:10→21:46)
[2021-11-26] MEDS: LACTULOSE SYRUP 30 GM/45 ML UDP PO SCH ×3 (08:11→21:44)
[2021-11-26] MEDS: DICLOFENAC SOD 1% GEL 100 GM TUBE EXT SCH ×4 (08:18→21:40)
[2021-11-26] MEDS: MAGNESIUM OXIDE 400 MG TAB PO SCH ×2 (10:34→21:41)
[2021-11-26] MEDS: WARFARIN SOD 7.5 MG TAB PO SCH (17:31)
[2021-11-26] MEDS: MoRPHine SULFATE IR 15 MG TAB (IMMEDIATE RELEASE) PO PRN (21:38)
[2021-11-26] MEDS: MELATONIN 3 MG TAB PO PRN (21:39)
[2021-11-26] MEDS: DUTASTERIDE PO SCH (21:40)
[2021-11-26] MEDS: TAMSULOSIN HCL 0.4 MG CAP PO SCH (21:41)
[2021-11-26] MEDS: EZETIMIBE 10 MG TABLET PO SCH (21:42)
[2021-11-26] MEDS: INSULIN GLARGINE SOLOSTAR 100 UNITS/ML 3 ML PEN SQ SCH (21:46)
[2021-11-26] MEDS: ISOSORBIDE MONO EXTENDED REL 60 MG TABCR PO SCH (21:46)
[2021-11-27] MEDS: DICLOFENAC SOD 1% GEL 100 GM TUBE EXT SCH ×2 (08:21→14:19)
[2021-11-27] MEDS: DOXYCYCLINE HYCLATE 100 MG CAP PO SCH (08:21)
[2021-11-27] MEDS: buPROPion SR 100 MG TABCR PO SCH (08:24)
[2021-11-27] MEDS: DULoxetine HCL 60 MG CAP PO SCH (08:24)
[2021-11-27] MEDS: dilTIAZem ER 180 MG CAPCR PO SCH (08:24)
[2021-11-27] MEDS: EPLERENONE PO SCH (08:25)
[2021-11-27] MEDS: FUROSEMIDE 40 MG TAB PO SCH (08:26)
[2021-11-27] MEDS: GABAPENTIN 300 MG CAP PO SCH ×2 (08:27→14:19)
[2021-11-27] MEDS: lisinopril 20 MG TAB PO SCH (08:28)
[2021-11-27] MEDS: LACTULOSE SYRUP 30 GM/45 ML UDP PO SCH ×2 (08:28→14:20)
[2021-11-27] MEDS: PROPRANOLOL HCL 10 MG TAB PO SCH ×2 (08:29→14:19)
[2021-11-27] MEDS: POTASSIUM CHLORIDE CRTAB 20 MEQ TABCR PO SCH (08:29)
[2021-11-27] MEDS: PANTOprazole 40 MG TAB PO SCH (08:29)
[2021-11-27] MEDS: ZINC SULFATE 220 MG CAPSULE PO SCH (08:30)
[2021-11-27 08:59] LABS: BUN Creatinine Ratio 15.9 (10-20); Creatinine Clr Calc Pharmacy 141.6 ml/min; Est GFR (African American) 112.3 ml/min; Est GFR (Non-African American) 96.9 ml/min; Magnesium 1.6 mg/dl (1.7-2.4); Potassium 4.2 mmol/L (3.5-5.1)
[2021-11-27] MEDS: ONDANSETRON INJ 2 MG/ML 2 ML VIAL IV PRN (09:08)
[2021-11-27] MEDS: MAGNESIUM OXIDE 400 MG TAB PO SCH (11:56)
--- NOTE | 2021-11-27 13:10 | Discharge Summary ---
Date of Service November 27, 2021 Admission HPI Per Admitting Provider Chivo ellis a 70 yo male w/ complicated PMHx including DM2, paroxysmal aFib, depression, anxiety, low back pain, chronic anemia, chronic liver failure w/ cirrhosis managed by GI through GI at [facility], CAD s/p CABG x3 in 1993 and again in 2010, NSTEMI on 08/12/20, BPH with LUTS, hypertension, GERD with esophageal varices, hyperaldosteronism, venous insufficiency with hypomagnesemia, and morbid obesity who presented to the emergency department today s/p fall. Patient states that for the past 2-3 weeks, he has had progressively worsening "balance problems" and unilateral right sided weakness of both his right arm and right leg. Patient denies weakness on the left side of the body. notes that he typically ambulates independently or with a cane but about 3 weeks ago he became more dependent on the cane and then 5-6 days ago, he began to use a walker due to the worsening weakness. Patient has been dependent on the walker for the past 5-6 days. Around 1230 today, he was attempting to walk into the bathroom, with the walker, when he fell to the ground. Patient did not hit his head nor did he have LOC. He did hit his right knee and has had pain and swelling of the right knee since the fall. Patient justino es at home with his . He reports 12 steps to get into the house/onto the main level. He lives on the main level. Is independent with ADLs at baseline. While in the ER, patient had a head CT that was negative for acute intracranial abnormality. A hip/pelvis XR showed no acute bony abnormality. A right knee XR showed "Soft tissue swelling and large joint effusion with no fracture ident ified. Osteopenia and degenerative change as above. This has significantly progressed as compared to 06/28/2013." Right knee CT showed medial femoral condyle cortical disruption/destruction consistent with impaction injury/fracture as well as complex/hyperdense joint effusion likely representing hemarthrosis. Patient was set up for discharge from ED but unfortunately was not able to ambulate due to weakness; thus, he is admitted for ambulatory dysfunction and further PT/OT evaluation. Additionally, to note, patient states that for the past several weeks he has had worsening depression/anxiety. No specific precipitating factors or recent stressors. Patient states that he has been crying daily. Has been compliant with Wellbutrin and Cymbalta. Patient denies recent illness including no fever, chills, CP, weight changes, abd pain, nausea, vomiting, or urinary symptoms. Principal Diagnosis ambulatory dysfunction Discharge Exam Constitutional WD/WN, vitals as above Eyes PERRL, conjunctivae normal, anicteric sclerae Respiratory normal respiratory effort, lungs clear to auscultation Auscultation: no crackles, no rales, no rhonchi and no wheezes Cardiovascular Rate/Rhythm: regular rate and regular rhythm Heart Sounds: no gallop, no murmur and no cardiac rub Vessels: normal peripheral pulses; no JVD Extremities: no edema Gastrointestinal (Abdomen) Inspection/Auscultation: normal bowel sounds; abdomen not distended Percussion/Palpation: abdomen soft; abdomen nontender and no guarding Musculoskeletal no cyanosis or clubbing, extremities motor strength 5/5 Skin no rashes, warm and dry Psychiatric Orientation: alert and oriented x 3 Discharge Data Allergies Allergy/AdvReac Type Severity Reaction Status Date / Time simvastatin AdvReac Intermediate GI UPSET- Verified 11/13/21 17:54 OK WITH LIPITOR pioglitazone AdvReac Mild GI UPSETS Verified 11/13/21 17:54 spironolactone AdvReac Mild NIPPLES Verified 11/13/21 17:54 HURT Consultations 11/13/21 22:23 ED Decision to Admit Stat 11/14/21 03:55 Consult Orthopedic Surgery Routine Ordered Studies 11/13/21 15:03 CT head/brain wo con Stat 11/13/21 19:09 CT knee RT wo con Stat 11/14/21 02:08 MR brain wo/w con Routine 11/23/21 08:55 US venous doppler LE RT Stat Hospital Course (1) Ambulatory dysfunction: Chivo Herring ia a 70 yo male w/ complicated PMHx including T2DM, paroxysmal aFib, depression/ anxiety, low back pain/chronic osteomyelitis of lumbar spine, chronic microcytic anemia, chronic liver failure w/ cirrhosis managed by GI through GI at [facility], CAD s/p CABG x3 in 1993 and again in 2010, NSTEMI on 08/12/20, BPH with LUTS, hypertension, GERD with esophageal varices, hyperaldosteronism, venous insufficiency with hypomagnesemia, and morbid obesity admitted to the hospital 11/13/21 for ambulatory dysfunction and weakness s/p fall. Ambulatory dysfunction and R sided weakness s/p fall: - Patient with progressively worsening R sided weakness and ambulatory dysfunction over the past several weeks - 2 falls during hospitalization (bed alarm being utilized and placed order for 2 assist) - Etiology is uncertain - Brain MRI and Head CT showed no evidence of stroke (however CT was motion degraded) - near vasovagal event secondary to blood pooling (i.e. hepatic congestion) due to underlying cirrhosis is possible - underlying diabetic neuropathy with superimposed deconditioning certainly increase propensity to fall - Discharged to [facility] for continued rehab Bilateral Hip Osteoarthritis - With intermittent pain. Confirmed via XR. - Voltaren gel as needed Right knee contusion - Right knee XR 11/13/21: Soft tissue swelling and large joint effusion with no fracture identified. - Right knee CT 11/13/21: Showing evidence of impact type injury/fracture and hemarthrosis. - Ortho consulted: acute swelling secondary to fall makes sorting out acute vs. chronic changes difficult. No further intervention until swelling goes down. - Coumadin held in setting of potential hemarthrosis on admission--> resumed 11/15/21 - pain regimen ordered: Tylenol front line (< 2 grams per day) agent given concurrent cirrhosis. Narcotics for severe pain with prolonged intervals; Voltaren gel as needed Liver Cirrhosis - likely source of pancytopenia + elevated AST - Continue Propranolol - Continue lactulose Hypomagnesia - Mag at 1.8 today - repleted - Given cardiac hx, goal K > 4 and Mag > 2 - Continue to recheck BMP and mag in AM Atrial fibrillation: on chronic anticoagulation with warfarin; Rate controlled on diltiazem + propranolol. Pancytopenia: Chronic. Likely due to cirrhosis as well as alpha thalassemia. Monitor daily. Liver cirrhosis: Continue home lactulose Diabetes: Last A1c 6.5% on 10/27/21; continue home Lantus; DM2 diet Hypertension: Continue home isosorbide mononitrate, diltiazem, propranolol, and lisinopril Depression: Continue home wellbutrin and cymbalta Chronic HFpEF: EF 50-55% in 11/2020. Continue home eplerenone and lasix BPH: Continue home dutasteride and flomax. Recent cystoscopy 11/10/21; continue to follow with urology in outpatient setting. Hyperlipidemia: Continue home ezetimibe Vertebral fractures: Continue home diclofenac gel and gabapentin Chronic osteomyelitis of lumbar spine: Continue home doxycycline GERD: continue home pantoprazole (2) Fall from standing: (3) Acute knee pain: (4) Severe obstructive sleep apnea: (5) Contusion of right knee: (6) Diabetes: (7) Anemia: (8) HTN (hypertension): (9) Hyperlipidemia: (10) Atrial flutter: Total Time Total Time Spent Total Time Spent (In Minutes): 30 Discharge Plan Discharge Items Patient Disposition[facility] Reason For Visit: AMBULATORY DYSFUNCTION Discharge Diagnosis: ambulatory dysfunction Condition on Discharge: Good Activity: Per Instructions section Non-emergency contact: Primary Care Provider Call non-emergency contact if: you have any medication questions, your symptoms worsen and your pain is worsening Follow-up/Referrals: Wayne Florez DO [Primary Care Provider] - Diet: Carb Consistent or DM2 Addtl Attending Provider Instructions: Chivo ellis a 70 yo male w/ complicated PMHx including T2DM, paroxysmal aFib, depression/ anxiety, low back pain/chronic osteomyelitis of lumbar spine, chronic microcytic anemia, chronic liver failure w/ cirrhosis managed by GI through GI at [facility], CAD s/p CABG x3 in 1993 and again in 2010, NSTEMI on 08/12/20, BPH with LUTS, hypertension, GERD with esophageal varices, hyperaldosteronism, venous insufficiency with hypomagnesemia, and morbid obesity admitted to the hospital 11/13/21 for ambulatory dysfunction and weakness s/p fall. Ambulatory dysfunction and R sided weakness s/p fall - Patient with progressively worsening R sided weakness and ambulatory dysfunction over the past several weeks - Etiology remains uncertain - Brain MRI and Head CT showed no evidence of stroke (however CT was motion degraded) - near vasovagal event secondary to blood pooling (ie hepatic congestion) due to underlying cirrhosis is possible - underlying diabetic neuropathy with superimposed deconditioning certainly increase propensity to fall Bilateral Hip Osteoarthritis With intermittent pain. Confirmed via XR. - Voltaren gel PRN ordered Right knee contusion - Right knee XR 11/13/21: Soft tissue swelling and large joint effusion with no fracture identified. - Right knee CT 11/13/21: Showing evidence of impact type injury/fracture and hemarthrosis. - Ortho consulted: acute swelling secondary to fall makes sorting out acute vs. chronic changes difficult. No further intervention until swelling goes down. - Coumadin held in setting of potential hemarthrosis on admission--> resumed 11/15 - pain regimen ordered: Tylenol front line (< 2 grams per day) agent given concurrent cirrhosis. Narcotics for severe pain with prolonged intervals Atrial fibrillation:on chronic anticoagulation with warfarin, continue. Rate controlled on diltiazem + propranolol. INR 2.1 on 11/23 - continue QOD monitoring. Pancytopenia:Chronic. Likely due to cirrhosis as well as alpha thalassemia. Monitor daily. Liver cirrhosis:Continue home lactulose Diabetes:Last A1c 6.5% on 10/27/21; continue home Lantus; DM2 diet Hypertension:Continue home isosorbide mononitrate, diltiazem, propranolol, and lisinopril Depression:Continue home wellbutrin and cymbalta Chronic HFpEF:EF 50-55% in 11/2020. Continue home eplerenone and lasix BPH:Continue home dutasteride and flomax. Recent cystoscopy 11/10/21; continue to follow with urology in outpatient setting. Hyperlipidemia:Continue home ezetimibe Vertebral fractures:Continue home diclofenac gel and gabapentin Chronic osteomyelitis of lumbar spine:Continue home doxycycline GERD: continue home pantoprazole Pending Studies at Discharge: No Stand-Alone Forms: My [facility] [employer] Skilled Items Patient informed of condition?: Yes DNR: No Discharge Level of Care: Acute rehab Communicable Disease: Yes Discharge Prognosis: Stable Lines: None Urinary Catheter: No Medications and DC Order Prescriptions: New oxycodone-acetaminophen [Percocet] 5-325 mg tablet 1 tab PO Q6H PRN (Reason: pain) Qty: 14 RF: 0 zinc 50 mg tablet 50 mg PO DAILY Qty: 30 RF: 0 Continued doxycycline monohydrate 100 mg capsule 100 mg PO BIDM Qty: 180 RF: 10 gabapentin 300 mg capsule 300 mg PO TID Qty: 270 RF: 3 (DME) blood-glucose meter [Quanlightuch Ultra2 Meter] Misc See Rx Instructions .ROUTE .MEDSUPPLY Qty: 1 RF: 0 diclofenac sodium 1 % gel 4 g TOP QID Qty: 100 RF: 1 furosemide 40 mg tablet 40 mg PO QAM Qty: 90 RF: 1 isosorbide mononitrate 120 mg tablet extended release 24 hr 120 mg PO QPM Qty: 90 RF: 1 warfarin 5 mg tablet 5 mg PO DAILY Qty: 90 RF: 1 Lantus Solostar U-100 Insulin 100 unit/mL (3 mL) insulin pen 8 unit subcut HS 90 Days Qty: 7.2 RF: 1 ezetimibe 10 mg tablet 10 mg PO QPM 90 Days Qty: 90 RF: 1 nitroglycerin 0.6 mg tablet, sublingual 0.6 mg Sublingual DIRECTED PRN (Reason: Chest Pain) Qty: 25 RF: 1 (DME) blood sugar diagnostic Strip See Dose Instructions .ROUTE .MEDSUPPLY Qty: 100 RF: 4 (DME) lancets [OneTouch Delica Lancets] 33 gauge misc See Dose Instructions .ROUTE .MEDSUPPLY Qty: 400 RF: 1 lisinopril 20 mg tablet 20 mg PO QAM Qty: 90 RF: 1 propranolol 10 mg tablet 10 mg PO TID Qty: 270 RF: 1 (DME) blood glucose control, normal Solution See Rx Instructions .Route Qty: 1 RF: 0 duloxetine 60 mg capsule,delayed release(DR/EC) 60 mg PO QAM Qty: 90 RF: 1 eplerenone 25 mg tablet 25 mg PO QAM 90 Days Qty: 90 RF: 1 pantoprazole 40 mg tablet,delayed release (DR/EC) 40 mg PO BID Qty: 180 RF: 1 bupropion HCl [Wellbutrin SR] 100 mg tablet sustained-release 12 hr 100 mg PO QAM Qty: 90 RF: 1 dutasteride [Avodart] 0.5 mg capsule 0.5 mg PO HS Qty: 90 RF: 1 (DME) CPAP Supplies Misc See Rx Instructions .ROUTE .MEDSUPPLY Qty: 1 RF: 0 (DME) CPAP Machine Misc See Rx Instructions .ROUTE .MEDSUPPLY Qty: 1 RF: 0 tamsulosin 0.4 mg capsule 0.4 mg PO HS 90 Days Qty: 90 RF: 3 (DME) CPAP Supplies Misc See Rx Instructions .ROUTE .MEDSUPPLY Qty: 1 RF: 0 potassium chloride 20 mEq tablet,ER particles/crystals 20 meq PO BID Qty: 180 RF: 1 diltiazem HCl 180 mg capsule,extended release 24 hr 180 mg PO QAM Qty: 90 RF: 3 omega-3 acid ethyl esters 1 gram capsule 1 cap PO BID Qty: 180 RF: 1 multivitamin tablet 1 tab PO QAM RF: 0 warfarin 7.5 mg tablet 7.5 mg PO [id number] RF: 0 lactulose 20 gram/30 mL Solution 45 ml PO BID 30 Days Qty: 2700 RF: 2 Discharge Orders: Discharge Order (Routine); Ordered 11/27/21 Ordered By: Louie Brar/Other Patient Handouts: Exercises to Prevent Falls Admission Data Admit Date/Time: 11/13/21 23:58 Attending Provider: Mara De Jesus Admit Provider: Joellen Sommer Primary Care Provider: Wayne Florez Other Providers: Ileana Benz ; Gianni Westfall ; [facility] ; [facility] ; [facility] Other Interventions: Discharge Summary Assessment (RN) Last Done: 11/27/21 13:53 Supervising Physician Co-Signing Physician Notes Pt seen and examined in concert with Dr. Genao. In agreement with the documented findings as noted in the resident documentation with any exceptions or additions as noted here. Mild chronic left hip/knee pain controlled with current regimen. No other acute complaints. V/S as noted. On examination, S1/S2 nl RRR no MCG. CTAB. Abd NT/ND BS+ve Right hand weakness - PT/OT - splint in place with good tolerance. Left hip pain - PT/OT - continue topical voltaren atop current pain medication regimen Cirrhosis - continue lactulose Discharge to SNF today. I personally spent 35 minutes discharge planning for this patient. Resident Activity Tracking Resident Involvement: Resident Care Provided Care Provided: Adult Hospital Medicine
== END 2021-11-27 14:44 | DRG 74 ==
LOC: ED 14:49 → SUATTDRO 23:58 → 3W 23:58

== ENCOUNTER 2022-02-04 11:59 | Inpatient (IN) ==
[2022-02-04] MEDS ORDERED: SODIUM CHLORIDE 0.9% 500 ML IV STA (12:37)
[2022-02-04] MEDS ORDERED: METOCLOPRAMIDE HCL INJ 5 MG/ML 2 ML VIAL IV STA (12:37)
--- NOTE | 2022-02-04 12:55 | Emergency Department Note ---
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 fib, atrial flutter, and sleep apnea presents to the emergency department with his complaining of nausea and vomiting that started suddenly at 7 PM last night. Initially started with increased acid reflux along with the nausea and vomiting. The acid reflux resolved after taking his evening dose of Protonix 40 mg, but the nausea and vomiting persisted. Initially had multiple episodes of vomiting, but now mostly dry heaves. Was not able to sleep at all last night because of the symptoms. Denies any hematemesis or coffee-ground emesis. Has intermittent cramping lower abdominal pain, but no other abdominal pain. Having 1 bowel movement a day that is formed to soft. Denies any hematochezia or melena. He does admit to urinary frequency and urgency, but no hematuria. Denies any fever s. Has a mild headache intermittently, but denies any other URI symptoms. Denies any chest pain or shortness of breath. No known ill contacts. He had 2 doses of Zofran prior to arrival with improvement of the nausea and vomiting initially, but then it returns. He denies any EtOH use and tries to follow a low-sodium diet. He follows up with hepatology at [facility] with his last office visit in September 2021. He is due for his screening ultrasound and labs in February. The patient is also concerned about his heart due to his previous cardiac history. Home Medications Medication Instructions Recorded Confirmed Type multivitamin 1 tab PO QAM 01/23/19 02/04/22 History diclofenac sodium 1 % topical gel 4 g topical QID #100 grams 02/17/21 02/04/22 Rx lactulose 20 gram/30 mL oral 45 ml PO BID 30 days #2,700 mL 03/15/21 02/04/22 Rx solution isosorbide mononitrate 120 mg 120 mg PO QPM #90 tabs 03/16/21 02/04/22 Rx tablet,extended release 24 hr insulin glargine 100 unit/mL (3 8 unit (0.08 mL) subcut HS 90 days 07/02/21 02/04/22 Rx mL) subcutaneous pen (Lantus #7.2 mL Solostar U-100 Insulin) ezetimibe 10 mg tablet 10 mg PO QPM 90 days #90 tabs 07/06/21 02/04/22 Rx nitroglycerin 0.6 mg sublingual 0.6 mg sublingual DIRECTED PRN 07/07/21 02/04/22 Rx tablet Chest Pain #25 tabs duloxetine 60 mg capsule,delayed 60 mg PO QAM #90 caps 09/03/21 02/04/22 Rx release eplerenone 25 mg tablet 25 mg PO QAM 90 days #90 tabs 09/03/21 02/04/22 Rx pantoprazole 40 mg tablet,delayed 40 mg PO BID #180 tabs 09/03/21 02/04/22 Rx release bupropion HCl 100 mg tablet,12 hr 100 mg PO QAM #90 ea 10/23/21 02/04/22 Rx sustained-release (Wellbutrin SR) dutasteride 0.5 mg capsule 0.5 mg PO HS #90 caps 11/03/21 02/04/22 Rx (Avodart) tamsulosin 0.4 mg capsule 0.4 mg PO HS 90 days #90 caps 11/03/21 02/04/22 Rx zinc 50 mg tablet 50 mg PO DAILY #30 tabs 11/17/21 02/04/22 Rx diltiazem HCl 180 mg capsule,24 180 mg PO QAM #90 caps 01/07/22 02/04/22 Rx hr,extended release doxycycline monohydrate 100 mg 100 mg PO BIDM #180 caps 01/07/22 02/04/22 Rx capsule furosemide 40 mg tablet 80 mg PO QAM #180 tabs 01/07/22 02/04/22 Rx gabapentin 300 mg capsule 300 mg PO TID #270 caps 01/07/22 02/04/22 Rx omega-3 acid ethyl esters 1 gram 1 cap PO BID #180 caps 01/07/22 02/04/22 Rx capsule propranolol 10 mg tablet 10 mg PO TID #270 tabs 01/07/22 02/04/22 Rx warfarin 5 mg tablet 5 mg PO DAILY #90 tabs 01/07/22 02/04/22 Rx warfarin 7.5 mg tablet 7.5 mg PO 6XWK #90 tabs 01/07/22 02/04/22 Rx rifaximin 550 mg tablet (Xifaxan) 550 mg PO TID #270 tabs 01/28/22 02/04/22 Rx lisinopril 40 mg tablet 20 mg PO DAILY 02/04/22 02/04/22 History Allergies Allergy/AdvReac Type Severity Reaction Status Date / Time simvastatin AdvReac Intermediate GI UPSET- Verified 01/25/22 15:18 OK WITH LIPITOR pioglitazone AdvReac Mild GI UPSETS Verified 01/25/22 15:18 spironolactone AdvReac Mild NIPPLES Verified 01/25/22 15:18 HURT Past Med/Surg History Medical History Acute confusion Ambulatory dysfunction Anemia Anxiety and depression CAD (coronary artery disease) Cauda equina compression Chronic systolic CHF (congestive heart failure) Cirrhosis of liver not due to alcohol Cyst of kidney, acquired Depression Enlarged prostate Esophageal varices Essential tremor Expressive aphasia Fall from standing GERD (gastroesophageal reflux disease) Gout Hepatic hemangioma Hx of myocardial infarction 1994 Hyperlipidemia Hypertension Internal hemorrhoids Liver failure NOT CANDIDATE FOR LIVER 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 [facility] History of coronary artery bypass graft x 3 X2 - 1993 AND 2010 - [place] History of esophagogastroduodenoscopy (EGD) (~05/29/19) History of heart surgery atrial septal deficit repair @ [facility] [place] 1993 at same time as CABG History of right knee surgery X4 to repair broken patella Hx of colonoscopy Hx of vasectomy Family History Mother Stroke Father Stroke Aunt Cancer Liver cancer and stomach cancer Other No family history of adverse response to anesthesia No significant family history Denies family history of Colon cancer Ovarian cancer Prostate cancer Myocardial infarction Breast cancer Social History Smoking Status: Former smoker Tobacco Type: Cigarettes Age Quit Using Tobacco: 60; Second Hand Exposure: No; Hx Alcohol Use: No Hx Substance Use: Yes Prescribed Medications: Marijuana Last Used Substance: Days (ago) Last Used Substance Other:: presciption for medicinal marijuana Substance Use Type Other:: medical marijuana Preferred Language: Nigerian Communication Ability: Effective Visual Impairment: No Limitations Hearing Ability: Normal 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 and A total of 10 systems reviewed and were otherwise negative Physical Exam Vital Signs Vital Signs - 24 hr 02/04/22 12:09 02/04/22 14:00 02/04/22 16:35 Temperature 37.1 C 36.9 C Temperature Source Oral Oral Pulse Rate 77 Pulse Rate [Finger] 76 90 Pulse Rhythm Regular Pulse Rhythm [Finger] Regular Pulse Strength Normal Pulse Strength [Finger] Normal Respiratory Rate 16 20 20 Respiratory Effort / Characteristics Non-Labored Spontaneous Non-Labored Non-Labored Respiratory Depth Normal Normal Normal Respiratory Pattern Regular Regular Regular Blood Pressure 183/102 H Blood Pressure [Right Arm] 184/102 H 177/100 H Blood Pressure Mean 129 Blood Pressure Mean [Right Arm] 129 125 Blood Pressure Position Lying Blood Pressure Position [Right Arm] Lying Pulse Oximetry 97 96 94 Oxygen Delivery Method Room Air Room Air Room Air Sepsis Recent Fever Within 48 Hours No Sepsis New/Unexplained Change in Mental Status N/A Sepsis Action Taken by Nursing No Action Required 02/04/22 18:16 Temperature Temperature Source Pulse Rate Pulse Rate [Finger] 61 Pulse Rhythm Pulse Rhythm [Finger] Pulse Strength Pulse Strength [Finger] Respiratory Rate 16 Respiratory Effort / Characteristics Non-Labored Spontaneous Respiratory Depth Normal Respiratory Pattern Regular Blood Pressure Blood Pressure [Right Arm] 173/100 H Blood Pressure Mean Blood Pressure Mean [Right Arm] 124 Blood Pressure Position Blood Pressure Position [Right Arm] Lying Pulse Oximetry 96 Oxygen Delivery Method Room Air Sepsis Recent Fever Within 48 Hours Sepsis New/Unexplained Change in Mental Status Sepsis Action Taken by Nursing VITALS: Vitals are noted on the nurse's note and reviewed by myself. Blood pressure 183/102. Vital signs otherwise stable. GENERAL: 71-year-old male, in no acute distress, but appears nauseous, nondiaphoretic, well-developed well-nourished. SKIN: The skin was without rashes, erythema, edema, or bruising. No jaundice noted. There is no tenting of the skin. Capillary reflex less than 2 seconds. HEAD: Normocephalic atraumatic. EARS: External auditory canals clear, tympanic membranes pearly avelar without erythema or effusion bilaterally. EYES: Pupils equal round and reactive to light and accommodation. Conjunctivae without injection, sclerae without icterus. Extraocular movements intact. NOSE: Patent, turbinates without inflammation or discharge. No sinus tenderness. MOUTH: Mucous membranes moist. Tonsils are not enlarged. Pharynx without erythema or exudate. Uvula midline. Airway patent. Tongue does not deviate. NECK: Supple without nuchal rigidity. No lymphadenopathy. No thyromegaly. Cervical spine is nontender. No JVD. HEART: Regular rate and rhythm without murmurs gallops or rubs. LUNGS: Clear to auscultation bilaterally without wheezes, rales or rhonchi. No dullness to percussion. No retractions or accessory muscle use. ABDOMEN: Positive bowel sounds x 4. Normal tympanic percussion. Soft, nontender, without masses or organomegaly. Garcia sign negative. No guarding or rebound tenderness. No CVA tenderness. No focal right lower quadrant tenderness. MUSCULOSKELETAL: No muscle atrophy, erythema, or edema noted. NEURO: Patient was alert and oriented to person place and time. Normal sensation to light and sharp touch. No asterixis. No focal neurological deficits. Course Administered Medications Doxycycline Hyclate 100 mg/ (Dextrose) 110 mls @ 50 mls/hr IV ONE ONE Stop: 02/04/22 19:26 Last Admin: 02/04/22 18:13 Dose: 50 mls/hr Documented By: ANDRY Discontinued Medications Diltiazem HCl (Diltiazem Hcl 180 Mg Er Cap) 180 mg PO ONE ONE Stop: 02/04/22 17:16 Last Admin: 02/04/22 17:50 Dose: 180 mg Documented By: QGV Sodium Chloride (Nss) 500 mls @ 999 mls/hr IV .Q31M STA Stop: 02/04/22 13:07 Last Infusion: 02/04/22 13:24 Dose: 0 mls/hr Documented By: Admin: 02/04/22 12:53 Dose: 999 mls/hr Documented By: OAM Ceftriaxone Sodium (Rocephin) 2,000 mg in 70 mls @ 140 mls/hr IV NOW STA Stop: 02/04/22 16:04 Last Infusion: 02/04/22 17:40 Dose: 0 mls/hr Documented By: Admin: 02/04/22 17:10 Dose: 140 mls/hr Documented By: QGV Pantoprazole Sodium 40 mg/ (Syringe) 10 mls @ 5 mls/min IV NOW ONE Stop: 02/04/22 17:04 Last Admin: 02/04/22 17:43 Dose: 5 mls/min Documented By: QGV Ioversol (Optiray 300 100ml) 82 ml IV ONCE ONE Stop: 02/04/22 16:07 Last Admin: 02/04/22 16:07 Dose: 82 ml Documented By: JOSH Metoclopramide HCl (Metoclopramide Hcl Inj 5 Mg/Ml 2 Ml Vial) 10 mg IV NOW STA Stop: 02/04/22 12:38 Last Admin: 02/04/22 12:53 Dose: 10 mg Documented By: OAM Propranolol HCl (Propranolol Hcl 10 Mg Tab) 10 mg PO ONE ONE Stop: 02/04/22 17:16 Last Admin: 02/04/22 17:49 Dose: 10 mg Documented By: QGV Warfarin Sodium (Warfarin Sod 7.5 Mg Tab) 7.5 mg PO ONE ONE Stop: 02/04/22 17:16 Last Admin: 02/04/22 17:43 Dose: 7.5 mg Documented By: QGV Medical Decision Making Differential Diagnosis Differential diagnosis includes hepatitis, pancreatitis, cholecystitis, cholelithiasis, appendicitis, kidney stone, pyelonephritis, UTI, gastritis, gastroenteritis, mesenteric adenitis, obstruction, constipation, hernia, abdominal abscess, perforation, diverticulitis, IBD, ischemic colitis, abdominal aortic aneurysm, testicular torsion, prostatitis, or others. Medical Records Attestation: I reviewed the patient's medical records. (Last hepatology note from 09/15/2021) Home Medications Current Medication List: was personally reviewed by me Laboratory Data Attestation: I reviewed the patient's lab results. Result diagrams: 02/04/22 12:05 02/04/22 14:08 Lab Results 02/04/22 02/04/22 02/04/22 Range/Units 12:05 12:05 12:05 WBC 5.14 (4.8-10.8) K/ul RBC 5.09 (4.63-6.08) M/uL Hgb 10.2 L (14.0-18.0) g/dl Hct 32.8 L (40.1-51.0) % MCV 64.4 L (80.0-100.0) fL MCH 20.0 L (25.0-34.0) pg MCHC 31.1 L (32.0-36.0) g/dL RDW Std Deviation 53.1 H (36.4-46.3) fL RDW Coeff of Jt 26.0 H (11.5-14.5) % Plt Count 87 L (130-400) K/uL Immature Gran % (Auto) 0.2 % Neut % (Auto) 81.5 % Lymph % (Auto) 12.6 % [place] % (Auto) 5.3 % Eos % (Auto) 0.2 % Baso % (Auto) 0.2 % Neut # (Auto) 4.19 (1.4-6.5) K/uL Lymph # (Auto) 0.65 L (1.2-3.4) K/uL [place] # (Auto) 0.27 (0.24-0.82) K/uL Eos # (Auto) 0.01 (0-0.50) K/uL Baso # (Auto) 0.01 (0-0.2) K/uL Immature Gran # (Auto) 0.01 (0.00-0.02) K/uL Platelet Estimate Decreased L (Normal) Polychromasia 2+ Poikilocytosis Present Anisocytosis Present Microcytosis Present Target Cells 2+ Tear Drop Cells 1+ PT Cancelled INR Cancelled Sodium TNP Potassium TNP Chloride 105 (98-107) mmol/L Carbon Dioxide 29 (21-32) mmol/L Anion Gap TNP BUN 7 (6-23) mg/dl Creatinine 0.66 (0.6-1.4) mg/dl Est Cr Clr Drug Dosing 147.7 ml/min Est GFR ( Amer) 114.3 ml/min Est GFR (Non-Af Amer) 98.6 ml/min BUN/Creatinine Ratio 10.6 (10-20) Glucose 115 H (70-99(Fasting)) mg/dl Calcium 8.2 L (8.5-10.1) mg/dl Total Bilirubin 1.8 H (0.2-1.0) mg/dl Direct Bilirubin TNP AST TNP ALT 121 H (7-52) U/L Alkaline Phosphatase TNP Ammonia (18-72) umol/L Troponin I High Sens 24.2 H D (0-20) pg/ml C-Reactive Protein (0-0.5) mg/dl Total Protein 6.8 (6.0-8.3) gm/dl Albumin TNP Globulin TNP Albumin/Globulin Ratio TNP Lipase 25 (11-82) U/L Procalcitonin Urine Color Urine Appearance (Clear) Urine pH (4.5-7.5) Ur Specific [place] (1.000-1.030) Urine Protein (Negative) Urine Glucose (UA) (Negative) Urine Ketones (Negative) Urine Blood (Negative) Urine Nitrite (Negative) Urine Bilirubin (Negative) Urine Urobilinogen (Negative) Ur Leukocyte Esterase (Negative) Urine WBC (Auto) (0-5) /hpf Urine RBC (Auto) (0-4) /hpf U Hyaline Cast (Auto) (0-5) /lpf U Epithel Cells (Auto) (0-5) /lpf Urine Bacteria (Auto) (Negative) Acetaminophen (10-30) ug/ml SARS-CoV-2, RNA, NAAT (NEGATIVE) 02/04/22 02/04/22 02/04/22 Range/Units 12:55 13:15 14:08 WBC (4.8-10.8) K/ul RBC (4.63-6.08) M/uL Hgb (14.0-18.0) g/dl Hct (40.1-51.0) % MCV (80.0-100.0) fL MCH (25.0-34.0) pg MCHC (32.0-36.0) g/dL RDW Std Deviation (36.4-46.3) fL RDW Coeff of Jt (11.5-14.5) % Plt Count (130-400) K/uL Immature Gran % (Auto) % Neut % (Auto) % Lymph % (Auto) % [place] % (Auto) % Eos % (Auto) % Baso % (Auto) % Neut # (Auto) (1.4-6.5) K/uL Lymph # (Auto) (1.2-3.4) K/uL [place] # (Auto) (0.24-0.82) K/uL Eos # (Auto) (0-0.50) K/uL Baso # (Auto) (0-0.2) K/uL Immature Gran # (Auto) (0.00-0.02) K/uL Platelet Estimate (Normal) Polychromasia Poikilocytosis Anisocytosis Microcytosis Target Cells Tear Drop Cells PT 15.1 H INR 1.4 H Sodium 143 Potassium 3.0 L Chloride (98-107) mmol/L Carbon Dioxide (21-32) mmol/L Anion Gap BUN (6-23) mg/dl Creatinine (0.6-1.4) mg/dl Est Cr Clr Drug Dosing ml/min Est GFR ( Amer) ml/min Est GFR (Non-Af Amer) ml/min BUN/Creatinine Ratio (10-20) Glucose (70-99(Fasting)) mg/dl Calcium (8.5-10.1) mg/dl Total Bilirubin (0.2-1.0) mg/dl Direct Bilirubin 0.4 H AST 136 H ALT (7-52) U/L Alkaline Phosphatase 288 H Ammonia (18-72) umol/L Troponin I High Sens (0-20) pg/ml C-Reactive Protein (0-0.5) mg/dl Total Protein (6.0-8.3) gm/dl Albumin 2.7 L Globulin Albumin/Globulin Ratio Lipase (11-82) U/L Procalcitonin Urine Color Yellow Urine Appearance Clear (Clear) Urine pH 8.5 H (4.5-7.5) Ur Specific [place] 1.007 (1.000-1.030) Urine Protein Negative (Negative) Urine Glucose (UA) Negative (Negative) Urine Ketones Negative (Negative) Urine Blood Trace H (Negative) Urine Nitrite Negative (Negative) Urine Bilirubin Negative (Negative) Urine Urobilinogen Negative (Negative) Ur Leukocyte Esterase 2+ H (Negative) Urine WBC (Auto) >30 H (0-5) /hpf Urine RBC (Auto) 0-4 (0-4) /hpf U Hyaline Cast (Auto) 1-5 (0-5) /lpf U Epithel Cells (Auto) 0-5 (0-5) /lpf Urine Bacteria (Auto) 2+ H (Negative) Acetaminophen (10-30) ug/ml SARS-CoV-2, RNA, NAAT (NEGATIVE) 02/04/22 02/04/22 02/04/22 Range/Units 14:08 14:17 16:17 WBC (4.8-10.8) K/ul RBC (4.63-6.08) M/uL Hgb (14.0-18.0) g/dl Hct (40.1-51.0) % MCV (80.0-100.0) fL MCH (25.0-34.0) pg MCHC (32.0-36.0) g/dL RDW Std Deviation (36.4-46.3) fL RDW Coeff of Jt (11.5-14.5) % Plt Count (130-400) K/uL Immature Gran % (Auto) % Neut % (Auto) % Lymph % (Auto) % [place] % (Auto) % Eos % (Auto) % Baso % (Auto) % Neut # (Auto) (1.4-6.5) K/uL Lymph # (Auto) (1.2-3.4) K/uL [place] # (Auto) (0.24-0.82) K/uL Eos # (Auto) (0-0.50) K/uL Baso # (Auto) (0-0.2) K/uL Immature Gran # (Auto) (0.00-0.02) K/uL Platelet Estimate (Normal) Polychromasia Poikilocytosis Anisocytosis Microcytosis Target Cells Tear Drop Cells PT INR Sodium Potassium Chloride (98-107) mmol/L Carbon Dioxide (21-32) mmol/L Anion Gap BUN (6-23) mg/dl Creatinine (0.6-1.4) mg/dl Est Cr Clr Drug Dosing ml/min Est GFR ( Amer) ml/min Est GFR (Non-Af Amer) ml/min BUN/Creatinine Ratio (10-20) Glucose (70-99(Fasting)) mg/dl Calcium (8.5-10.1) mg/dl Total Bilirubin (0.2-1.0) mg/dl Direct Bilirubin AST ALT (7-52) U/L Alkaline Phosphatase Ammonia 30.0 (18-72) umol/L Troponin I High Sens 23.9 H (0-20) pg/ml C-Reactive Protein 5.07 H (0-0.5) mg/dl Total Protein (6.0-8.3) gm/dl Albumin Globulin Albumin/Globulin Ratio Lipase (11-82) U/L Procalcitonin Urine Color Urine Appearance (Clear) Urine pH (4.5-7.5) Ur Specific [place] (1.000-1.030) Urine Protein (Negative) Urine Glucose (UA) (Negative) Urine Ketones (Negative) Urine Blood (Negative) Urine Nitrite (Negative) Urine Bilirubin (Negative) Urine Urobilinogen (Negative) Ur Leukocyte Esterase (Negative) Urine WBC (Auto) (0-5) /hpf Urine RBC (Auto) (0-4) /hpf U Hyaline Cast (Auto) (0-5) /lpf U Epithel Cells (Auto) (0-5) /lpf Urine Bacteria (Auto) (Negative) Acetaminophen (10-30) ug/ml SARS-CoV-2, RNA, NAAT (NEGATIVE) 02/04/22 02/04/22 02/04/22 Range/Units 16:52 17:07 18:11 WBC (4.8-10.8) K/ul RBC (4.63-6.08) M/uL Hgb (14.0-18.0) g/dl Hct (40.1-51.0) % MCV (80.0-100.0) fL MCH (25.0-34.0) pg MCHC (32.0-36.0) g/dL RDW Std Deviation (36.4-46.3) fL RDW Coeff of Jt (11.5-14.5) % Plt Count (130-400) K/uL Immature Gran % (Auto) % Neut % (Auto) % Lymph % (Auto) % [place] % (Auto) % Eos % (Auto) % Baso % (Auto) % Neut # (Auto) (1.4-6.5) K/uL Lymph # (Auto) (1.2-3.4) K/uL [place] # (Auto) (0.24-0.82) K/uL Eos # (Auto) (0-0.50) K/uL Baso # (Auto) (0-0.2) K/uL Immature Gran # (Auto) (0.00-0.02) K/uL Platelet Estimate (Normal) Polychromasia Poikilocytosis Anisocytosis Microcytosis Target Cells Tear Drop Cells PT INR Sodium Potassium Chloride (98-107) mmol/L Carbon Dioxide (21-32) mmol/L Anion Gap BUN (6-23) mg/dl Creatinine (0.6-1.4) mg/dl Est Cr Clr Drug Dosing ml/min Est GFR ( Amer) ml/min Est GFR (Non-Af Amer) ml/min BUN/Creatinine Ratio (10-20) Glucose (70-99(Fasting)) mg/dl Calcium (8.5-10.1) mg/dl Total Bilirubin (0.2-1.0) mg/dl Direct Bilirubin AST ALT (7-52) U/L Alkaline Phosphatase Ammonia (18-72) umol/L Troponin I High Sens (0-20) pg/ml C-Reactive Protein (0-0.5) mg/dl Total Protein (6.0-8.3) gm/dl Albumin Globulin Albumin/Globulin Ratio Lipase (11-82) U/L Procalcitonin Cancelled 0.09 Urine Color Urine Appearance (Clear) Urine pH (4.5-7.5) Ur Specific [place] (1.000-1.030) Urine Protein (Negative) Urine Glucose (UA) (Negative) Urine Ketones (Negative) Urine Blood (Negative) Urine Nitrite (Negative) Urine Bilirubin (Negative) Urine Urobilinogen (Negative) Ur Leukocyte Esterase (Negative) Urine WBC (Auto) (0-5) /hpf Urine RBC (Auto) (0-4) /hpf U Hyaline Cast (Auto) (0-5) /lpf U Epithel Cells (Auto) (0-5) /lpf Urine Bacteria (Auto) (Negative) Acetaminophen (10-30) ug/ml SARS-CoV-2, RNA, NAAT NEGATIVE (NEGATIVE) 02/04/22 Range/Units 18:11 WBC (4.8-10.8) K/ul RBC (4.63-6.08) M/uL Hgb (14.0-18.0) g/dl Hct (40.1-51.0) % MCV (80.0-100.0) fL MCH (25.0-34.0) pg MCHC (32.0-36.0) g/dL RDW Std Deviation (36.4-46.3) fL RDW Coeff of Jt (11.5-14.5) % Plt Count (130-400) K/uL Immature Gran % (Auto) % Neut % (Auto) % Lymph % (Auto) % [place] % (Auto) % Eos % (Auto) % Baso % (Auto) % Neut # (Auto) (1.4-6.5) K/uL Lymph # (Auto) (1.2-3.4) K/uL [place] # (Auto) (0.24-0.82) K/uL Eos # (Auto) (0-0.50) K/uL Baso # (Auto) (0-0.2) K/uL Immature Gran # (Auto) (0.00-0.02) K/uL Platelet Estimate (Normal) Polychromasia Poikilocytosis Anisocytosis Microcytosis Target Cells Tear Drop Cells PT INR Sodium Potassium Chloride (98-107) mmol/L Carbon Dioxide (21-32) mmol/L Anion Gap BUN (6-23) mg/dl Creatinine (0.6-1.4) mg/dl Est Cr Clr Drug Dosing ml/min Est GFR ( Amer) ml/min Est GFR (Non-Af Amer) ml/min BUN/Creatinine Ratio (10-20) Glucose (70-99(Fasting)) mg/dl Calcium (8.5-10.1) mg/dl Total Bilirubin (0.2-1.0) mg/dl Direct Bilirubin AST ALT (7-52) U/L Alkaline Phosphatase Ammonia (18-72) umol/L Troponin I High Sens (0-20) pg/ml C-Reactive Protein (0-0.5) mg/dl Total Protein (6.0-8.3) gm/dl Albumin Globulin Albumin/Globulin Ratio Lipase (11-82) U/L Procalcitonin Urine Color Urine Appearance (Clear) Urine pH (4.5-7.5) Ur Specific [place] (1.000-1.030) Urine Protein (Negative) Urine Glucose (UA) (Negative) Urine Ketones (Negative) Urine Blood (Negative) Urine Nitrite (Negative) Urine Bilirubin (Negative) Urine Urobilinogen (Negative) Ur Leukocyte Esterase (Negative) Urine WBC (Auto) (0-5) /hpf Urine RBC (Auto) (0-4) /hpf U Hyaline Cast (Auto) (0-5) /lpf U Epithel Cells (Auto) (0-5) /lpf Urine Bacteria (Auto) (Negative) Acetaminophen < 3 L (10-30) ug/ml SARS-CoV-2, RNA, NAAT (NEGATIVE) Imaging Data Radiologist's Impression: Abdomen/Pelvis CT 02/04/22 15:46 CT SCAN OF THE ABDOMEN AND PELVIS WITH IV CONTRAST CLINICAL HISTORY: Cirrhosis. Elevated hepatic transaminases. Urinary tract. COMPARISON STUDY: Abdominal CT dated 09/09/2021 and 11/07/2015. TECHNIQUE: Following the IV administration of 82 cc of Optiray 300, CT scan of the abdomen and pelvis is performed from the lung bases to the proximal femora. Images are reviewed in the axial, sagittal, and coronal planes. IV contrast was administered without complication. A dose lowering technique was utilized adhering to the principles of ALARA. The examination is compromised by motion artifact. CT DOSE: 1621.92 mGy.cm FINDINGS: Lung bases: The patient is status post midline sternotomy. The heart is enlarged and without pericardial effusion. The coronary arteries are densely calcified. The lung bases are clear noting bibasilar scarring/atelectasis. There is a small hiatal hernia. Liver: The contrast-enhanced liver is cirrhotic in morphology and heterogeneous in attenuation. There is hypertrophy of the left lobe and nodularity of the hepatic surface contour. There is no intrahepatic biliary ductal dilatation. The portal vein is diminutive but appears patent. The intrahepatic portal veins are patent. Gallbladder: There are calcified gallstones without CT evidence of acute cholecystitis. Nonspecific abnormal thickening and edema is likely related to cirrhosis and ascites. Spleen: Normal in size and attenuation. Pancreas: A 2 cm cystic lesion in the uncinate process is unchanged. This either represents a sidebranch IPMN. There is nonspecific infiltration around the pancreatic head. The gland enhances throughout and the duct is normal in caliber. Adrenal glands: Unremarkable. Kidneys: The contrast enhanced kidneys are normal in size and without hydronephrosis. The kidneys enhance symmetrically. Bilateral renal cysts measure up to 9 cm. Additional subcentimeter cortical hypodensities also likely represent cysts but are too small for definitive characterization. Abdominal vasculature: The abdominal aorta is normal in course and caliber noting advanced atherosclerotic calcification. Bowel: There are mildly thick-walled loops of small bowel in the left upper quadrant with associated interloop fluid. These are best seen on image #147. There is no bowel obstruction. The appendix is well-visualized and normal. Peritoneum/retroperitoneum: There is a small volume of perihepatic and perisplenic ascites. Fluid tracks in the paracolic gutter bilaterally. No intraperitoneal free air is seen. There are right-sided retroperitoneal varices. A 3 cm indeterminant cystic lesion in the right retroperitoneum seen on image #184 is unchanged and may represent a lymphangioma. Lymphadenopathy: None. Pelvic viscera: The prostate gland is enlarged and heterogeneous noting median lobe hypertrophy. The bladder wall is thickened and trabeculated indicating chronic outlet obstruction. Varicosities are noted along the right inguinal canal. Skeletal structures: The skeletal structures are osteopenic. There is lumbosacral spondylosis with postoperative change from L3-S1 spinal fusion. No lytic or blastic lesions are seen. There are chronic compression deformities of L1 and L2. There are subacute appearing left anterior rib fractures. 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 IMPRESSION: 1. The liver is cirrhotic in morphology and heterogeneous in attenuation. 2. Vascular collaterals and a small volume of abdominal ascites indicate portal hypertension. 3. There is mild infiltration identified around the pancreatic head. Correlate with clinical findings and serum lipase levels for evidence of pancreatitis. 4. Cholelithiasis without clear CT evidence of acute cholecystitis. Gallbladder wall thickening and edema are likely related to cirrhosis and ascites. If there is clinical concern for acute cholecystitis a right upper quadrant ultrasound should be obtained. 5. There are mildly thick-walled loops of small bowel in the left upper quadrant with trace interloop fluid. Correlate clinically for evidence of a nonspecific enteritis. 6. Prostatomegaly with evidence of chronic bladder outlet obstruction. 7. There subacute appearing left anterior rib fractures. 8. Additional findings as above. ACT 112: Negative or not required by law. Electronically signed by: Ronal Brady M.D. 02/04/2022 4:29 PM MDM Narrative I examined the patient. An IV lock was placed and labs are drawn. The patient was given 1 L normal saline solution bolus as well as Reglan 10 mg IV since he has already had 2 doses of Zofran. 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 RBBB no longer present compared to ECG 12/28/21. Prolonged QT present. There was no abdominal tenderness on exam so imaging initially held, but CT AP with IV contrast was then obtained prior to admission and was read by radiology and reviewed by myself as above. Troponin initially came back mildly elevated at 24.2 with repeat troponin in 2 hours decreased to 23.9. Labs revealed a normal WBC count of 5.14. Hemoglobin 10.2 L which was improved from 9.8 on 12/28/21, platelet count 87 L, INR 1.4 H consistent with his cirrhosis and Coumadin. Potassium was low at 3.0, but sodium was normal. LFTs had increased since labs on 12/28/2021. AST 136 H (79 prev), ALT 121 H (46 prev), AP 288 H (298 prev), TB 1.8 H (1.1 prev), DB 0.4 H. Lipase was normal at 25. NH3 normal at 30. Urinalysis with trace blood, 2+ leukocytes, greater than 30 WBC, and 2+ bacteria suggesting UTI. Urine culture is pending. Blood cultures x2 are also pending. The patient was able to fall asleep and rest after the Reglan, but his nausea persisted after waking up. The patient also remained hypertensive. The patient was also evaluated by Dr. Elizalde. The patient was given Rocephin 2 g IV for the presumed UTI based on urinalysis with urine culture pending. The patient remain ed hemodynamically stable throughout his ED stay. Due to his UTI, continued nausea, HTN, and increased LFTs with his history of cirrhosis, we recommended admission for further evaluation and treatment. I spoke with David of the [facility] group who recommended the CT scan, NH3 level, and blood cultures as discussed above prior to admission. COVID testing was negative. [facility] Impression & Plan Urinary tract infection, Elevated liver enzymes, Hypertension, Nausea & vomiting Discharge Plan Visit Data Chief Complaint: Nausea ED Provider: Ronal Elizalde ED Midlevel Provider: Nora Em Discharge Problem: Urinary tract infection, Elevated liver enzymes, Hypertension, Nausea & vomiting Patient Disposition: Admitted As Inpatient Forms Stand Alone Forms: My [facility] Prescriptions Prescriptions: No Action diclofenac sodium 1 % gel 4 g TOP QID Qty: 100 1RF Rx Instructions: apply to single knee, ankle, foot; for foot includes sole/toes/top of foot isosorbide mononitrate 120 mg tablet extended release 24 hr 120 mg PO QPM Qty: 90 1RF Lantus Solostar U-100 Insulin 100 unit/mL (3 mL) insulin pen 8 unit subcut HS 90 Days Qty: 7.2 1RF ezetimibe 10 mg tablet 10 mg PO QPM 90 Days Qty: 90 1RF nitroglycerin 0.6 mg tablet, sublingual 0.6 mg Sublingual DIRECTED PRN (Reason: Chest Pain) Qty: 25 1RF duloxetine 60 mg capsule,delayed release(DR/EC) 60 mg PO QAM Qty: 90 1RF eplerenone 25 mg tablet 25 mg PO QAM 90 Days Qty: 90 1RF Rx Instructions: pantoprazole 40 mg tablet,delayed release (DR/EC) 40 mg PO BID Qty: 180 1RF bupropion HCl [Wellbutrin SR] 100 mg tablet sustained-release 12 hr 100 mg PO QAM Qty: 90 1RF dutasteride [Avodart] 0.5 mg capsule 0.5 mg PO HS Qty: 90 1RF furosemide 40 mg tablet 80 mg PO QAM Qty: 180 1RF doxycycline monohydrate 100 mg capsule 100 mg PO BIDM Qty: 180 1RF diltiazem HCl 180 mg capsule,extended release 24 hr 180 mg PO QAM Qty: 90 1RF gabapentin 300 mg capsule 300 mg PO TID Qty: 270 3RF omega-3 acid ethyl esters 1 gram capsule 1 cap PO BID Qty: 180 1RF propranolol 10 mg tablet 10 mg PO TID Qty: 270 1RF warfarin 5 mg tablet 5 mg PO DAILY Qty: 90 1RF Protocol: Dose Management Condition: Tuesday (Week One) Dose/Route: 7.5 mg Instruction: 1 x 7.5 mg tablet Condition: Tuesday Dose/Route: 7.5 mg Instruction: 1 x 7.5 mg tablet Condition: Tuesday Dose/Route: 7.5 mg Instruction: 1 x 7.5 mg tablet Condition: Tuesday Dose/Route: 10 mg Instruction: 2 x 5 mg tablets Condition: Dose/Route: 10 mg Instruction: 2 x 5 mg tablets Condition: Tuesday Dose/Route: 5 mg Instruction: 1 x 5 mg tablet Condition: Tuesday Dose/Route: 7.5 mg Instruction: 1 x 7.5 mg tablet Condition: Tuesday (Week Two) Dose/Route: 7.5 mg Instruction: 1 x 7.5 mg tablet Condition: Tuesday Dose/Route: 7.5 mg Instruction: 1 x 7.5 mg tablet Condition: Tuesday Dose/Route: 7.5 mg Instruction: 1 x 7.5 mg tablet Condition: Tuesday Dose/Route: 7.5 mg Instruction: 1 x 7.5 mg tablet Condition: Dose/Route: 7.5 mg Instruction: 1 x 7.5 mg tablet Condition: Tuesday Dose/Route: 5 mg Instruction: 1 x 5 mg tablet Condition: Tuesday Dose/Route: 7.5 mg Instruction: 1 x 7.5 mg tablet Protocol Text: Adjustment Start Date: Tuesday10/28/21 INR Value: 1.5 INR Date: 10/27/21 Recheck Date: 11/11/21 Rx Instructions: 5 mg daily warfarin 7.5 mg tablet 7.5 mg PO [id number] Qty: 90 1RF Protocol: Dose Management Condition: Tuesday (Week One) Dose/Route: 7.5 mg Instruction: 1 x 7.5 mg tablet Condition: Tuesday Dose/Route: 7.5 mg Instruction: 1 x 7.5 mg tablet Condition: Tuesday Dose/Route: 7.5 mg Instruction: 1 x 7.5 mg tablet Condition: Tuesday Dose/Route: 10 mg Instruction: 2 x 5 mg tablets Condition: Dose/Route: 10 mg Instruction: 2 x 5 mg tablets Condition: Tuesday Dose/Route: 5 mg Instruction: 1 x 5 mg tablet Condition: Tuesday Dose/Route: 7.5 mg Instruction: 1 x 7.5 mg tablet Condition: Tuesday (Week Two) Dose/Route: 7.5 mg Instruction: 1 x 7.5 mg tablet Condition: Tuesday Dose/Route: 7.5 mg Instruction: 1 x 7.5 mg tablet Condition: Tuesday Dose/Route: 7.5 mg Instruction: 1 x 7.5 mg tablet Condition: Tuesday Dose/Route: 7.5 mg Instruction: 1 x 7.5 mg tablet Condition: Dose/Route: 7.5 mg Instruction: 1 x 7.5 mg tablet Condition: Tuesday Dose/Route: 5 mg Instruction: 1 x 5 mg tablet Condition: Tuesday Dose/Route: 7.5 mg Instruction: 1 x 7.5 mg tablet Protocol Text: Adjustment Start Date: Tuesday10/28/21 INR Value: 1.5 INR Date: 10/27/21 Recheck Date: 11/11/21 Rx Instructions: Takes at HS Xifaxan 550 mg tablet 550 mg PO TID Qty: 270 1RF tamsulosin 0.4 mg capsule 0.4 mg PO HS 90 Days Qty: 90 3RF multivitamin tablet 1 tab PO QAM lactulose 20 gram/30 mL Solution 45 ml PO BID 30 Days Qty: 2700 2RF zinc 50 mg tablet 50 mg PO DAILY Qty: 30 0RF lisinopril 40 mg tablet 20 mg PO DAILY Referrals Referrals: Wayne Florez DO [Primary Care Provider] - : Urinary tract infection Qualifiers: Urinary tract infection type: acute cystitis Hematuria presence: without hematuria Qualified Code(s): N30.00 - Acute cystitis without hematuria Hypertension Qualifiers: Hypertension type: unspecified Qualified Code(s): I10 - Essential (primary) hypertension Nausea & vomiting Qualifiers: Vomiting type: unspecified Qualified Code(s): R11.2 - Nausea with vomiting, unspecified
[2022-02-04 13:14] LABS: Troponin I High Sensitivity 24.2 pg/ml (0-20)
[2022-02-04 13:24] LABS: Alanine Aminotransferase 121 U/L (7-52); BUN Creatinine Ratio 10.6 (10-20); Bilirubin,Total 1.8 mg/dl (0.2-1.0); Blood Urea Nitrogen 7 mg/dl (6-23); Calcium 8.2 mg/dl (8.5-10.1); Carbon Dioxide 29 mmol/L (21-32); Chloride 105 mmol/L (98-107); Creatinine Clr Calc Pharmacy 147.7 ml/min; Est GFR (African American) 114.3 ml/min; Est GFR (Non-African American) 98.6 ml/min; Glucose 115 mg/dl (70-99(Fasting)); Lipase 25 U/L (11-82); Total Protein 6.8 gm/dl (6.0-8.3)
[2022-02-04 13:27] LABS: Anisocytosis Present; Basophils # (auto) 0.01 K/uL (0-0.2); Basophils % (auto) 0.2 %; Eosinophils # (auto) 0.01 K/uL (0-0.50); Eosinophils % (auto) 0.2 %; Hematocrit (blood only) 32.8 % (40.1-51.0); Hemoglobin 10.2 g/dl (14.0-18.0); Immature Granulocytes # (auto) 0.01 K/uL (0.00-0.02); Immature Granulocytes % (auto) 0.2 %; Lymphocytes # (auto) 0.65 K/uL (1.2-3.4); Lymphocytes % (auto) 12.6 %; Mean Corpuscular Hgb Conc 31.1 g/dL (32.0-36.0); Mean Corpuscular Volume 64.4 fL (80.0-100.0); Microcytosis Present; Monocytes # (auto) 0.27 K/uL (0.24-0.82); Monocytes % (auto) 5.3 %; Neutrophils # (auto) 4.19 K/uL (1.4-6.5); Neutrophils % (auto) 81.5 %; Platelet Count 87 K/uL (130-400); Platelet Estimate Decreased (Normal); Poikilocytosis Present; Polychromasia 2+; RDW Standard Deviation 53.1 fL (36.4-46.3); Red Blood Count 5.09 M/uL (4.63-6.08); Target Cells 2+; Tear Drop Cells 1+; White Blood Count 5.14 K/ul (4.8-10.8)
[2022-02-04 13:29] LABS: Appearance Urine Clear (Clear); Bacteria Urine Automated 2+ (Negative); Bilirubin Urine Negative (Negative); Blood Urine Trace (Negative); Color Urine Yellow; Epithelial Cell Urine Auto 0-5 /lpf (0-5); Glucose Urine UA Negative (Negative); Ketones Urine Negative (Negative); Leukocyte Esterase Urine 2+ (Negative); Nitrite Urine Negative (Negative); Protein Urine Negative (Negative); RBC Urine Automated 0-4 /hpf (0-4); Specific Gravity Urine 1.007 (1.000-1.030); Urobilinogen Urine Negative (Negative); WBC Urine Automated >30 /hpf (0-5); pH Urine 8.5 (4.5-7.5)
[2022-02-04 13:39] LABS: INR 1.4 (0.9-1.1); Prothrombin Time 15.1 Seconds (9.0-12.0)
[2022-02-04 14:40] LABS: Albumin Level 2.7 gm/dl (3.4-5.0); Bilirubin Direct 0.4 mg/dl (0-0.2)
[2022-02-04] MEDS ORDERED: cefTRIAXone SODIUM 2,000 MG/70 ML BAG IV STA (15:35)
--- NOTE | 2022-02-04 15:51 | Emergency Department Note ---
ED Visit Note I was consulted by the Advanced Practice Provider. I saw the patient personally and performed a substantive portion of the visit. This includes aspects of the HPI, MDM, diagnostic interpretations, and disposition/plan. The patient presents with vomiting, weakness. He appears to have a UTI. He is hypertensive. Hospitalization is warranted. .
[2022-02-04] MEDS ORDERED: OPTIRAY 300 100mL IV ONE (16:06)
--- NOTE | 2022-02-04 16:31 | CT Scan Report ---
CT SCAN OF THE ABDOMEN AND PELVIS WITH IV CONTRAST CLINICAL HISTORY: Cirrhosis. Elevated hepatic transaminases. Urinary tract. COMPARISON STUDY: Abdominal CT dated 09/09/2021 and 11/07/2015. TECHNIQUE: Following the IV administration of 82 cc of Optiray 300, CT scan of the abdomen and pelvi s is performed from the lung bases to the proximal femora. Images are reviewed in the axial, sagittal , and coronal planes. IV contrast was administered without complication. A dose lowering technique wa s utilized adhering to the principles of ALARA. The examination is compromised by motion artifact. CT DOSE: 1621.92 mGy.cm FINDINGS: Lung bases: The patient is status post midline sternotomy. The heart is enlarged and without pericard ial effusion. The coronary arteries are densely calcified. The lung bases are clear noting bibasilar scarring/atelectasis. There is a small hiatal hernia. Liver: The contrast-enhanced liver is cirrhotic in morphology and heterogeneous in attenuation. There is hypertrophy of the left lobe and nodularity of the hepatic surface contour. There is no intrahepa tic biliary ductal dilatation. The portal vein is diminutive but appears patent. The intrahepatic por migueilto veins are patent. Gallbladder: There are calcified gallstones without CT evidence of acute cholecystitis. Nonspecific a bnormal thickening and edema is likely related to cirrhosis and ascites. Spleen: Normal in size and attenuation. Pancreas: A 2 cm cystic lesion in the uncinate process is unchanged. This either represents a sidebra nch IPMN. There is nonspecific infiltration around the pancreatic head. The gland enhances throughout and the duct is normal in caliber. Adrenal glands: Unremarkable. Kidneys: The contrast enhanced kidneys are normal in size and without hydronephrosis. The kidneys enh ance symmetrically. Bilateral renal cysts measure up to 9 cm. Additional subcentimeter cortical hypod ensities also likely represent cysts but are too small for definitive characterization. Abdominal vasculature: The abdominal aorta is normal in course and caliber noting advanced atheroscle rotic calcification. Bowel: There are mildly thick-walled loops of small bowel in the left upper quadrant with associated interloop fluid. These are best seen on image #147. There is no bowel obstruction. The appendix is w ell-visualized and normal. Peritoneum/retroperitoneum: There is a small volume of perihepatic and perisplenic ascites. Fluid tra cks in the paracolic gutter bilaterally. No intraperitoneal free air is seen. There are right-sided r etroperitoneal varices. A 3 cm indeterminant cystic lesion in the right retroperitoneum seen on image #184 is unchanged and may represent a lymphangioma. Lymphadenopathy: None. Pelvic viscera: The prostate gland is enlarged and heterogeneous noting median lobe hypertrophy. The bladder wall is thickened and trabeculated indicating chronic outlet obstruction. Varicosities are no thelma along the right inguinal canal. Skeletal structures: The skeletal structures are osteopenic. There is lumbosacral spondylosis with po stoperative change from L3-S1 spinal fusion. No lytic or blastic lesions are seen. There are chronic compression deformities of L1 and L2. There are subacute appearing left anterior rib fractures. Findi ngs suggest avascular necrosis of the proximal femora. IMPRESSION: 1. The liver is cirrhotic in morphology and heterogeneous in attenuation. 2. Vascular collaterals and a small volume of abdominal ascites indicate portal hypertension. 3. There is mild infiltration identified around the pancreatic head. Correlate with clinical findings and serum lipase levels for evidence of pancreatitis. 4. Cholelithiasis without clear CT evidence of acute cholecystitis. Gallbladder wall thickening and e sonny are likely related to cirrhosis and ascites. If there is clinical concern for acute cholecystiti s a right upper quadrant ultrasound should be obtained. 5. There are mildly thick-walled loops of small bowel in the left upper quadrant with trace interloop fluid. Correlate clinically for evidence of a nonspecific enteritis. 6. Prostatomegaly with evidence of chronic bladder outlet obstruction. 7. There subacute appearing left anterior rib fractures. 8. Additional findings as above. ACT 112: Negative or not required by law. Electronically signed by: Ronal Brady M.D. 02/04/2022 4:29 PM
--- NOTE | 2022-02-04 16:48 | Electrocardiogram Report ---
Test Reason : Blood Pressure : / mmHG Vent. 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
[2022-02-04] MEDS ORDERED: PANTOprazole 40 MG in SYRINGE 0 ML IV ONE (17:03)
[2022-02-04] MEDS ORDERED: PROPRANOLOL HCL 10 MG TAB PO ONE (17:15)
[2022-02-04] MEDS ORDERED: WARFARIN SOD 7.5 MG TAB PO ONE (17:15)
[2022-02-04] MEDS ORDERED: DOXYCYCLINE HYCLATE 100 MG in DEXTROSE 5% 100 ML IV ONE (17:15)
--- NOTE | 2022-02-04 17:47 | History & Physical Report ---
Date of Service February 04, 2022 Assessment & Plan (1) Elevated LFTs: Plan: Patient with acute elevated LFTS, Bili, ALKpo4, acute on chronic elevation with history of SWIFT Cirrhosis - DDX- infectious vs. GB disease vs. volume depletion vs. Liver failure - Patient is not encephalopathic, he is on Coumadin so INR is elevated, normal ammonia, small amount of ascites - Blood cultures obtained - Tylenol pending - CT abdomen with narrowed portal vein but "likely patent" and already anticoagulated- clot less likely - Without abdominal pain or epigastric pain- RUQUS for evaluation for cholecystitis- follow with MRCP am - Consult GI - Continue with Rocephin for now await cultures and other diagnostics - Normosol IV (2) Acute vomiting: Plan: Acute following eating last evening precluded by GERD without stomach or abdominal pain - Without diarrhea associated - however CT scan interpreted as a nonspecific enteritis. - DDX: GERD/Gastritis/PUD vs. GBD vs. Food bourne/enteritis vs. pancreatitis - not sick so makes food bourne less likely - Protonix 40mg IV now and then BID - Clears as tolerated pending above studies - Follow culture data- if diarrhea ensues obtain stool PCR - Pancreatitis unlikely at this time as he is without abdominal pain or elevated lipase- however treat supportively as above 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 - With history of GRADE I varices - Continue Rifaximin, Lactulose - Lasix continue once volume repleted - Continue propranolol (5) Osteomyelitis of lumbar spine: Plan: ID consulted in 2019 for diskitis- since that time he has been on prophylactic doxycycline 100mg PO BID - Change to IV BID and continue until above pathology unveiled as well as tolerating PO (6) Chronic systolic CHF (congestive heart failure): Plan: Continue ANAIS as renal function is stable Continue Lasix once volume repleted Continue statin Trend HScTNI- mild elevation on check in EMD - likely type II demand as without ECG changes (7) Esophageal varices: Plan: Grade I on previous EGD - continue rifaximn and propranolol (8) Aldosteronism: Plan: Replete potassium give BP medications now - Continue with epleronone or equivalent - follow voluem status and electrolytes (9) BPH loc w urin obs/LUTS: Plan: Continue with Tamsulosin, Flomax - hold on Esteves catheter at this time as able to void - urine has lightened up in color following IVF (10) CAD (coronary artery disease): Plan: Continue as above Trend HScTNI (11) Hypercholesteremia: Plan: Continue Zetia (12) Essential (primary) hypertension: Plan: Continue Isosorbide Propranolol Diltiazem for his Afib/flutter Continue Lisinopril (13) Type 2 diabetes mellitus: Plan: Continue Lantus Aspart sliding scale without carb ratio until PO intake established - goal < 180 (14) Paroxysmal atrial flutter: Plan: Currently in NSR with PVCs - replete potassium History of Present Illness Primary Care Provider: Wayne Florez, DO 71 YOM with medical history of: SWIFT Cirrhosis, DM II (on insulin), Obesity, back pain chronic, diskitis (on senior care prophy therapy with BID Doxy), HTN, Aflutter/afib (on Warfarin), CAD, HTN, HLD, ALDO(on CPAP). Patient follows with [facility] Gastro/Hepatology. Patient comes to the EMD today for 1 day history of vomiting and heart burn. Patient states this started last night about 20 minutes after following dinner. He had stuffed shells that he shared with his , frozen dinner. Following this he had heartburn that then progressed to nausea and followed by vomiting. He endorses that he vomited 3-5 times last night and then 2 times this morning. He endorses mostly clear light brown tinged emesis, no blood and denies any dark brown or black coloring. He attempted to drink fluids this morning but came right back up. He reports feeling cold last night but without fever. He denies any other symptoms of body aches, abdominal pain, or diarrhea. His is not feeling ill and she ate the same food as he did. He also denies any epigastric pain or pain in the LUQ. In the EMD the patient had routine labs performed was given 1 liter of crystalloid infusion, and antiemetics. Following discussion blood cultures, ammonia level and imaging was requested. He was given 1GM Rocephin in EMD. Patient labs were notable for increase in his liver enzymes, elevated bilirubin, and ALKPO4, normal lipase. CT abdomen with mild infiltration around Pancrease head, cholelithiasis without evidence of cholecystitis. Patient will be admitted to PCU, IV hydration with Normosol, Protonix IV BID, obtain RUQUS, continue with ABX empiric for GI source and change his suppressive Doxy to IV for now until tolerating PO. COVID test on admission is: NEGATIVE Allergies Allergy/AdvReac Type Severity Reaction Status Date / Time simvastatin AdvReac Intermediate GI UPSET- Verified 02/05/22 13:18 OK WITH LIPITOR pioglitazone AdvReac Mild GI UPSETS Verified 02/05/22 13:18 spironolactone AdvReac Mild NIPPLES Verified 02/05/22 13:18 HURT Home Medications Medication Instructions Recorded Confirmed Type multivitamin 1 tab PO QAM 01/23/19 02/09/22 History diclofenac sodium 1 % topical gel 4 g topical QID #100 grams 02/17/21 02/09/22 Rx lactulose 20 gram/30 mL oral 45 ml PO BID 30 days #2,700 mL 03/15/21 02/09/22 Rx solution isosorbide mononitrate 120 mg 120 mg PO QPM #90 tabs 03/16/21 02/09/22 Rx tablet,extended release 24 hr insulin glargine 100 unit/mL (3 8 unit (0.08 mL) subcut HS 90 days 07/02/21 02/09/22 Rx mL) subcutaneous pen (Lantus #7.2 mL Solostar U-100 Insulin) ezetimibe 10 mg tablet 10 mg PO QPM 90 days #90 tabs 07/06/21 02/09/22 Rx nitroglycerin 0.6 mg sublingual 0.6 mg sublingual DIRECTED PRN 07/07/21 02/09/22 Rx tablet Chest Pain #25 tabs duloxetine 60 mg capsule,delayed 60 mg PO QAM #90 caps 09/03/21 02/09/22 Rx release eplerenone 25 mg tablet 25 mg PO QAM 90 days #90 tabs 09/03/21 02/09/22 Rx pantoprazole 40 mg tablet,delayed 40 mg PO BID #180 tabs 09/03/21 02/09/22 Rx release bupropion HCl 100 mg tablet,12 hr 100 mg PO QAM #90 ea 10/23/21 02/09/22 Rx sustained-release (Wellbutrin SR) dutasteride 0.5 mg capsule 0.5 mg PO HS #90 caps 11/03/21 02/09/22 Rx (Avodart) tamsulosin 0.4 mg capsule 0.4 mg PO HS 90 days #90 caps 11/03/21 02/09/22 Rx zinc 50 mg tablet 50 mg PO DAILY #30 tabs 11/17/21 02/09/22 Rx diltiazem HCl 180 mg capsule,24 180 mg PO QAM #90 caps 01/07/22 02/09/22 Rx hr,extended release doxycycline monohydrate 100 mg 100 mg PO BIDM #180 caps 01/07/22 02/09/22 Rx capsule furosemide 40 mg tablet 80 mg PO QAM #180 tabs 01/07/22 02/09/22 Rx gabapentin 300 mg capsule 300 mg PO TID #270 caps 01/07/22 02/09/22 Rx omega-3 acid ethyl esters 1 gram 1 cap PO BID #180 caps 01/07/22 02/09/22 Rx capsule propranolol 10 mg tablet 10 mg PO TID #270 tabs 01/07/22 02/09/22 Rx warfarin 5 mg tablet 5 mg PO DAILY #90 tabs 01/07/22 02/09/22 Rx warfarin 7.5 mg tablet 7.5 mg PO 6XWK #90 tabs 01/07/22 02/09/22 Rx rifaximin 550 mg tablet (Xifaxan) 550 mg PO TID #270 tabs 01/28/22 02/09/22 Rx lisinopril 40 mg tablet 20 mg PO DAILY 02/04/22 02/09/22 History Past Med/Surg History Medical History Acute confusion Ambulatory dysfunction Anemia Anxiety and depression CAD (coronary artery disease) Cauda equina compression Chronic systolic CHF (congestive heart failure) Cirrhosis of liver not due to alcohol Cyst of kidney, acquired Depression Enlarged prostate Esophageal varices Essential tremor Expressive aphasia Fall from standing GERD (gastroesophageal reflux disease) Gout Hepatic hemangioma Hx of myocardial infarction 1995 Hyperlipidemia Hypertension Internal hemorrhoids Liver failure NOT CANDIDATE FOR LIVER TRANSPLANT - shelter (current) use of anticoagulants warfarin daily Mass of petrous temporal bone Medical marijuana use Morbid obesity BMI 43 Opioid dependence Osteomyelitis of lumbar spine PAF (paroxysmal atrial fibrillation) Pancytopenia Pigmented nevus Pulmonary nodule Seborrheic keratosis Sleep apnea USES CPAP Thyroid nodule Tubular adenoma of colon Type 2 diabetes mellitus Vitamin D deficiency Wide-complex tachycardia Surgical History History of back surgery X3 - 2 FOR FUSION AND LAST TO CLEAN UP INFECTION History of cardiac cath X4 - [facility] - LAST ONE 02/2011 ? [facility] History of coronary artery bypass graft x 3 X2 - 1993 AND 2010 - [facility] History of esophagogastroduodenoscopy (EGD) (~05/29/19) History of heart surgery atrial septal deficit repair @ [facility] [place] 1993 at same time as CABG History of right knee surgery X4 to repair broken patella Hx of colonoscopy Hx of vasectomy Family History Mother Stroke Father Stroke Aunt Cancer Liver cancer and stomach cancer Other No family history of adverse response to anesthesia No significant family history Denies family history of Colon cancer Ovarian cancer Prostate cancer Myocardial infarction Breast cancer Social History Smoking Status: Former smoker Tobacco Type: Cigarettes Age Quit Using Tobacco: 60; Second Hand Exposure: No; Hx Alcohol Use: No Hx Substance Use: No Preferred Language: Surinamese Communication Ability: Effective Visual Impairment: No Limitations Hearing Ability: Normal Lead Pressman Required: No Beliefs That Will Affect Care: None marital status: Current Living Situation: Spouse current occupational status: retired Feels Safe at Home: Yes Childhood Exposure to Second-Hand Smoke: Yes Dental Care, Regularly: Yes Physical Activity Frequency: 3-4 Times per Week Seatbelt Use: always Sunscreen Use: Yes Assistive Devices: Cane and Walker Review of Systems Review of Systems: REVIEW OF SYSTEMS: Constitutional: (+) chills, NO fever, sweats Eyes: No diplopia, no worsening or blurred vision ENT: normal hearing, no trouble swallowing Respiratory: No cough, sputum, dyspnea at rest or on exertion Cardiovascular: No chest pain, tightness or palpitations Abdomen: (+) Vomitting, Nausea, No pain, diarrhea or constipation Musculoskeletal: (+) right knee joint pain, NO calf pain, swelling Neurologic: No weakness, numbness/tingling, or balance problems : (+) hesitation and decrease flow Psychiatric: No anxiety or depression Skin: No rash or itch Physical Exam Physical Exam: PHYSICAL EXAM: General: awake, alert, Head: Normocephalic, atraumatic ENT: PERRL, EOMI, without icterus, no pharyngeal exudate, mucous membranes dry Neuro: AAO x 3, without encephalopathy, speech clear and appropriate, no nystagmus strength intact bilaterally 5/5, sensation intact and equal all extremities and dermatomes, no pronator drift Chest: equal rise and fall of the chest, no accessory muscle use, no heaves or thrills, Clear to auscultation, on room air, Cardiac: Regular rate and rhythm, telemetry reviewed-afib, skin warm dry, cap refill <3 seconds, peripheral pulses +2 no JVD, no murmur, +2 edema to feet and ankles GI: NABS x 4 quadrants, soft, nontender to palpation, no rebound, guarding or tenderness : Spontaneously voiding, no pain, no CVA tenderness, Psych: Normal mood and affect Skin: no rash or erythema Results & Data Results & Data ([facility]) Vital Signs (Past 12 Hours) Vital Signs Temp Pulse Pulse Resp BP BP Pulse Ox 02/04/22 16:35 36.9 C 90 20 177/100 H 94 02/04/22 14:00 76 20 184/102 H 96 02/04/22 12:09 37.1 C 77 16 183/102 H 97 O2 Del Method 02/04/22 16:35 Room Air 02/04/22 14:00 Room Air 02/04/22 12:09 Room Air Laboratory Results Laboratory Results - last 24 hr 02/04/22 02/04/22 02/04/22 12:05 12:05 12:05 WBC 5.14 RBC 5.09 Hgb 10.2 L Hct 32.8 L MCV 64.4 L MCH 20.0 L MCHC 31.1 L RDW Std Deviation 53.1 H RDW Coeff of Jt 26.0 H Plt Count 87 L Immature Gran % (Auto) 0.2 Neut % (Auto) 81.5 Lymph % (Auto) 12.6 [place] % (Auto) 5.3 Eos % (Auto) 0.2 Baso % (Auto) 0.2 Neut # (Auto) 4.19 Lymph # (Auto) 0.65 L [place] # (Auto) 0.27 Eos # (Auto) 0.01 Baso # (Auto) 0.01 Immature Gran # (Auto) 0.01 Platelet Estimate Decreased L Polychromasia 2+ Poikilocytosis Present Anisocytosis Present Microcytosis Present Target Cells 2+ Tear Drop Cells 1+ PT Cancelled INR Cancelled Sodium TNP Potassium TNP Chloride 105 Carbon Dioxide 29 Anion Gap TNP BUN 7 Creatinine 0.66 Est Cr Clr Drug Dosing 147.7 Est GFR ( Amer) 114.3 Est GFR (Non-Af Amer) 98.6 BUN/Creatinine Ratio 10.6 Glucose 115 H Calcium 8.2 L Total Bilirubin 1.8 H Direct Bilirubin TNP AST TNP ALT 121 H Alkaline Phosphatase TNP Ammonia Troponin I High Sens 24.2 H D C-Reactive Protein Total Protein 6.8 Albumin TNP Globulin TNP Albumin/Globulin Ratio TNP Lipase 25 Urine Color Urine Appearance Urine pH Ur Specific [place] Urine Protein Urine Glucose (UA) Urine Ketones Urine Blood Urine Nitrite Urine Bilirubin Urine Urobilinogen Ur Leukocyte Esterase Urine WBC (Auto) Urine RBC (Auto) U Hyaline Cast (Auto) U Epithel Cells (Auto) Urine Bacteria (Auto) SARS-CoV-2, RNA, NAAT 02/04/22 02/04/22 02/04/22 12:55 13:15 14:08 WBC RBC Hgb Hct MCV MCH MCHC RDW Std Deviation RDW Coeff of Jt Plt Count Immature Gran % (Auto) Neut % (Auto) Lymph % (Auto) [place] % (Auto) Eos % (Auto) Baso % (Auto) Neut # (Auto) Lymph # (Auto) [place] # (Auto) Eos # (Auto) Baso # (Auto) Immature Gran # (Auto) Platelet Estimate Polychromasia Poikilocytosis Anisocytosis Microcytosis Target Cells Tear Drop Cells PT 15.1 H INR 1.4 H Sodium 143 Potassium 3.0 L Chloride Carbon Dioxide Anion Gap BUN Creatinine Est Cr Clr Drug Dosing Est GFR ( Amer) Est GFR (Non-Af Amer) BUN/Creatinine Ratio Glucose Calcium Total Bilirubin Direct Bilirubin 0.4 H AST 136 H ALT Alkaline Phosphatase 288 H Ammonia Troponin I High Sens C-Reactive Protein Total Protein Albumin 2.7 L Globulin Albumin/Globulin Ratio Lipase Urine Color Yellow Urine Appearance Clear Urine pH 8.5 H Ur Specific [place] 1.007 Urine Protein Negative Urine Glucose (UA) Negative Urine Ketones Negative Urine Blood Trace H Urine Nitrite Negative Urine Bilirubin Negative Urine Urobilinogen Negative Ur Leukocyte Esterase 2+ H Urine WBC (Auto) >30 H Urine RBC (Auto) 0-4 U Hyaline Cast (Auto) 1-5 U Epithel Cells (Auto) 0-5 Urine Bacteria (Auto) 2+ H SARS-CoV-2, RNA, NAAT 02/04/22 02/04/22 02/04/22 14:08 14:17 16:17 WBC RBC Hgb Hct MCV MCH MCHC RDW Std Deviation RDW Coeff of Jt Plt Count Immature Gran % (Auto) Neut % (Auto) Lymph % (Auto) [place] % (Auto) Eos % (Auto) Baso % (Auto) Neut # (Auto) Lymph # (Auto) [place] # (Auto) Eos # (Auto) Baso # (Auto) Immature Gran # (Auto) Platelet Estimate Polychromasia Poikilocytosis Anisocytosis Microcytosis Target Cells Tear Drop Cells PT INR Sodium Potassium Chloride Carbon Dioxide Anion Gap BUN Creatinine Est Cr Clr Drug Dosing Est GFR ( Amer) Est GFR (Non-Af Amer) BUN/Creatinine Ratio Glucose Calcium Total Bilirubin Direct Bilirubin AST ALT Alkaline Phosphatase Ammonia 30.0 Troponin I High Sens 23.9 H C-Reactive Protein Pending Total Protein Albumin Globulin Albumin/Globulin Ratio Lipase Urine Color Urine Appearance Urine pH Ur Specific [place] Urine Protein Urine Glucose (UA) Urine Ketones Urine Blood Urine Nitrite Urine Bilirubin Urine Urobilinogen Ur Leukocyte Esterase Urine WBC (Auto) Urine RBC (Auto) U Hyaline Cast (Auto) U Epithel Cells (Auto) Urine Bacteria (Auto) SARS-CoV-2, RNA, NAAT 02/04/22 17:07 WBC RBC Hgb Hct MCV MCH MCHC RDW Std Deviation RDW Coeff of Jt Plt Count Immature Gran % (Auto) Neut % (Auto) Lymph % (Auto) [place] % (Auto) Eos % (Auto) Baso % (Auto) Neut # (Auto) Lymph # (Auto) [place] # (Auto) Eos # (Auto) Baso # (Auto) Immature Gran # (Auto) Platelet Estimate Polychromasia Poikilocytosis Anisocytosis Microcytosis Target Cells Tear Drop Cells PT INR Sodium Potassium Chloride Carbon Dioxide Anion Gap BUN Creatinine Est Cr Clr Drug Dosing Est GFR ( Amer) Est GFR (Non-Af Amer) BUN/Creatinine Ratio Glucose Calcium Total Bilirubin Direct Bilirubin AST ALT Alkaline Phosphatase Ammonia Troponin I High Sens C-Reactive Protein Total Protein Albumin Globulin Albumin/Globulin Ratio Lipase Urine Color Urine Appearance Urine pH Ur Specific [place] Urine Protein Urine Glucose (UA) Urine Ketones Urine Blood Urine Nitrite Urine Bilirubin Urine Urobilinogen Ur Leukocyte Esterase Urine WBC (Auto) Urine RBC (Auto) U Hyaline Cast (Auto) U Epithel Cells (Auto) Urine Bacteria (Auto) SARS-CoV-2, RNA, NAAT Pending Diagnostic Findings Abdomen/Pelvis CT 02/04/22 15:46 CT SCAN OF THE ABDOMEN AND PELVIS WITH IV CONTRAST CLINICAL HISTORY: Cirrhosis. Elevated hepatic transaminases. Urinary tract. COMPARISON STUDY: Abdominal CT dated 09/09/2021 and 11/07/2015. TECHNIQUE: Following the IV administration of 82 cc of Optiray 300, CT scan of the abdomen and pelvis is performed from the lung bases to the proximal femora. Images are reviewed in the axial, sagittal, and coronal planes. IV contrast was administered without complication. A dose lowering technique was utilized adhering to the principles of ALARA. The examination is compromised by motion artifact. CT DOSE: 1621.92 mGy.cm FINDINGS: Lung bases: The patient is status post midline sternotomy. The heart is enlarged and without pericardial effusion. The coronary arteries are densely calcified. The lung bases are clear noting bibasilar scarring/atelectasis. There is a small hiatal hernia. Liver: The contrast-enhanced liver is cirrhotic in morphology and heterogeneous in attenuation. There is hypertrophy of the left lobe and nodularity of the hepatic surface contour. There is no intrahepatic biliary ductal dilatation. The portal vein is diminutive but appears patent. The intrahepatic portal veins are patent. Gallbladder: There are calcified gallstones without CT evidence of acute cholecystitis. Nonspecific abnormal thickening and edema is likely related to cirrhosis and ascites. Spleen: Normal in size and attenuation. Pancreas: A 2 cm cystic lesion in the uncinate process is unchanged. This either represents a sidebranch IPMN. There is nonspecific infiltration around the pancreatic head. The gland enhances throughout and the duct is normal in caliber. Adrenal glands: Unremarkable. Kidneys: The contrast enhanced kidneys are normal in size and without hydronephrosis. The kidneys enhance symmetrically. Bilateral renal cysts measure up to 9 cm. Additional subcentimeter cortical hypodensities also likely represent cysts but are too small for definitive characterization. Abdominal vasculature: The abdominal aorta is normal in course and caliber noting advanced atherosclerotic calcification. Bowel: There are mildly thick-walled loops of small bowel in the left upper quadrant with associated interloop fluid. These are best seen on image #147. There is no bowel obstruction. The appendix is well-visualized and normal. Peritoneum/retroperitoneum: There is a small volume of perihepatic and perisplenic ascites. Fluid tracks in the paracolic gutter bilaterally. No intraperitoneal free air is seen. There are right-sided retroperitoneal varices. A 3 cm indeterminant cystic lesion in the right retroperitoneum seen on image #184 is unchanged and may represent a lymphangioma. Lymphadenopathy: None. Pelvic viscera: The prostate gland is enlarged and heterogeneous noting median lobe hypertrophy. The bladder wall is thickened and trabeculated indicating chronic outlet obstruction. Varicosities are noted along the right inguinal canal. Skeletal structures: The skeletal structures are osteopenic. There is lumbosacral spondylosis with postoperative change from L3-S1 spinal fusion. No lytic or blastic lesions are seen. There are chronic compression deformities of L1 and L2. There are subacute appearing left anterior rib fractures. 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 IMPRESSION: 1. The liver is cirrhotic in morphology and heterogeneous in attenuation. 2. Vascular collaterals and a small volume of abdominal ascites indicate portal hypertension. 3. There is mild infiltration identified around the pancreatic head. Correlate with clinical findings and serum lipase levels for evidence of pancreatitis. 4. Cholelithiasis without clear CT evidence of acute cholecystitis. Gallbladder wall thickening and edema are likely related to cirrhosis and ascites. If there is clinical concern for acute cholecystitis a right upper quadrant ultrasound should be obtained. 5. There are mildly thick-walled loops of small bowel in the left upper quadrant with trace interloop fluid. Correlate clinically for evidence of a nonspecific enteritis. 6. Prostatomegaly with evidence of chronic bladder outlet obstruction. 7. There subacute appearing left anterior rib fractures. 8. Additional findings as above. ACT 112: Negative or not required by law. Electronically signed by: Ronal Brady M.D. 02/04/2022 4:29 PM Medications Administered Home Medications multivitamin 1 tab PO QAM 01/23/19 [History Confirmed 02/04/22] diclofenac sodium 1 % topical gel 4 g topical QID #100 grams 02/17/21 [Rx Confirmed 02/04/22] lactulose 20 gram/30 mL oral solution 45 ml PO BID 30 days #2,700 mL 03/15/21 [Rx Confirmed 02/04/22] isosorbide mononitrate 120 mg tablet,extended release 24 hr 120 mg PO QPM #90 tabs 03/16/21 [Rx Confirmed 02/04/22] insulin glargine 100 unit/mL (3 mL) subcutaneous pen (Lantus Solostar U-100 Insulin) 8 unit (0.08 mL) subcut HS 90 days #7.2 mL 07/02/21 [Rx Confirmed 02/04/22] ezetimibe 10 mg tablet 10 mg PO QPM 90 days #90 tabs 07/06/21 [Rx Confirmed 02/04/22] nitroglycerin 0.6 mg sublingual tablet 0.6 mg sublingual DIRECTED PRN Chest Pain #25 tabs 07/07/21 [Rx Confirmed 02/04/22] duloxetine 60 mg capsule,delayed release 60 mg PO QAM #90 caps 09/03/21 [Rx Confirmed 02/04/22] eplerenone 25 mg tablet 25 mg PO QAM 90 days #90 tabs 09/03/21 [Rx Confirmed 02/04/22] pantoprazole 40 mg tablet,delayed release 40 mg PO BID #180 tabs 09/03/21 [Rx Confirmed 02/04/22] bupropion HCl 100 mg tablet,12 hr sustained-release (Wellbutrin SR) 100 mg PO Q AM #90 ea 10/23/21 [Rx Confirmed 02/04/22] dutasteride 0.5 mg capsule (Avodart) 0.5 mg PO HS #90 caps 11/03/21 [Rx Confirmed 02/04/22] tamsulosin 0.4 mg capsule 0.4 mg PO HS 90 days #90 caps 11/03/21 [Rx Confirmed 02/04/22] zinc 50 mg tablet 50 mg PO DAILY #30 tabs 11/17/21 [Rx Confirmed 02/04/22] diltiazem HCl 180 mg capsule,24 hr,extended release 180 mg PO QAM #90 caps 01/07/22 [Rx Confirmed 02/04/22] doxycycline monohydrate 100 mg capsule 100 mg PO BIDM #180 caps 01/07/22 [Rx Confirmed 02/04/22] furosemide 40 mg tablet 80 mg PO QAM #180 tabs 01/07/22 [Rx Confirmed 02/04/22] gabapentin 300 mg capsule 300 mg PO TID #270 caps 01/07/22 [Rx Confirmed 02/04/22] omega-3 acid ethyl esters 1 gram capsule 1 cap PO BID #180 caps 01/07/22 [Rx Confirmed 02/04/22] propranolol 10 mg tablet 10 mg PO TID #270 tabs 01/07/22 [Rx Confirmed 02/04/22] warfarin 5 mg tablet 5 mg PO DAILY #90 tabs 01/07/22 [Rx Confirmed 02/04/22] warfarin 7.5 mg tablet 7.5 mg PO 6XWK #90 tabs 01/07/22 [Rx Confirmed 02/04/22] rifaximin 550 mg tablet (Xifaxan) 550 mg PO TID #270 tabs 01/28/22 [Rx Confirmed 02/04/22] lisinopril 40 mg tablet 20 mg PO DAILY 02/04/22 [History Confirmed 02/04/22] Active Medications Doxycycline Hyclate 100 mg/ (Dextrose) 110 mls @ 50 mls/hr IV ONE ONE Stop: 02/04/22 19:26 ECG Additional Comments: Vent. Rate : 080 BPM Atrial Rate : 081 BPM P-R Int : 150 ms QRS Dur : 108 ms QT Int : 448 ms P-R-T Axes : 035 039 041 degrees QTc Int : 516 ms Sinus rhythm with frequent Premature ventricular complexes Old Inferior infarct (cited on or before 12-AUG-2020) Prolonged QT Abnormal ECG When compared with ECG of 28-DEC-2021 14:40, Right bundle branch block is no longer Present Code Status & VTE Plan Code Status CODE: FULL VTE: SCDS, Warfarin VTE Prophylaxis Plan VTE Prophylaxis will be ordered: Yes Supervising Physician Co-Signing Physician Notes Patient seen and examined at bedside. During face to face encounter, I obtained a physical examination and clinical history at bedside. Discussed plan of care with patient and APC Tonny Patient will be admitted for elevated lfts in a patient with PMH of NAHS and cirrohsis. Will monitor levels. Place NPO consult GI. 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
--- NOTE | 2022-02-04 20:04 | Ultrasound Report ---
ULTRASOUND RIGHT UPPER QUADRANT ABDOMEN CLINICAL HISTORY: Elevated hepatic transaminases and bilirubin. Gallstones.. COMPARISON STUDY: Abdominal CT dated 02/04/2022. TECHNIQUE: Real-time, grayscale, and color flow sonography of the right upper quadrant of the abdomen was performed. Images are reviewed in the transverse and longitudinal planes. The examination is deg raded by large body habitus and patient movement. FINDINGS: Liver: The liver is cirrhotic in morphology and heterogeneous in echotexture. There is nodularity of the hepatic surface contour. There is no intrahepatic biliary ductal dilatation. The main portal vein is patent. Reversal of flow is noted. Gallbladder: The gallbladder is decompressed and contains numerous shadowing gallstones. There is non specific gallbladder wall thickening which measures up to 5 mm. No pericholecystic fluid is seen. A s onographic Garcia's sign is reportedly absent. The common bile duct measures up to 0.7 cm in diameter . Pancreas: Visualized portions of the pancreatic head and body are normal in appearance. The splenic v ein is patent. Right kidney: Survey images of the right kidney demonstrate normal size and echotexture. There is no hydronephrosis. A 4.2 cm cyst is noted in the interpolar right kidney. Ascites: None. IMPRESSION: 1. Cholelithiasis without sonographic evidence of acute cholecystitis. 2. Nonspecific gallbladder wall thickening is likely related to adjacent hepatocellular disease. 3. Cirrhotic liver morphology 4. Reversal of flow in the main portal vein. ACT 112: Negative or not required by law. Electronically signed by: Ronal Brady M.D. 02/04/2022 8:02 PM
[2022-02-04] MEDS ORDERED: GLUCOSE 10 TAB/TUBE PO PRN (20:35)
[2022-02-04] MEDS ORDERED: CARBOHYDRATES FOR HYPOGLYCEMIA PO PRN (20:35)
[2022-02-04] MEDS ORDERED: DEXTROSE 50% 50 ML SYRINGE IV PRN (20:35)
[2022-02-04] MEDS ORDERED: GLUCAGON FOR INJ 1 MG VIAL SQ PRN (20:35)
[2022-02-04] MEDS ORDERED: ONDANSETRON INJ 2 MG/ML 2 ML VIAL IV PRN (20:35)
[2022-02-04] MEDS ORDERED: GLUCOSE 40% GEL 15 GM TUBE PO PRN (20:35)
[2022-02-04] MEDS ORDERED: NITROGLYCERIN SL 0.4 MG/TAB TAB SL PRN (20:35)
[2022-02-04] MEDS: POTASSIUM CHLORIDE / WTR 10 MEQ/100 ML PLCT IV SCH ×2 (22:44→23:47)
[2022-02-04] MEDS: LANTUS PER UNIT CHARGE SQ SCH (23:01)
[2022-02-04] MEDS: INSULIN ASPART PER UNIT SC SCH (23:01)
[2022-02-04] MEDS: GABAPENTIN 300 MG CAP PO SCH (23:03)
[2022-02-04] MEDS: EZETIMIBE 10 MG TABLET PO SCH (23:03)
[2022-02-04] MEDS: LACTULOSE SYRUP 20 GM/30 ML UDC PO SCH (23:04)
[2022-02-04] MEDS: PROPRANOLOL HCL 10 MG TAB PO SCH (23:05)
[2022-02-04] MEDS: rifAXIMin 550 MG TABLET PO SCH (23:05)
[2022-02-04] MEDS: TAMSULOSIN HCL 0.4 MG CAP PO SCH (23:06)
[2022-02-04] MEDS: ISOSORBIDE MONO EXTENDED REL 60 MG TABCR PO SCH (23:07)
[2022-02-04] MEDS ORDERED: POTASSIUM CHLORIDE 10 MEQ / 100ML WTR IV ONE (23:31)
[2022-02-05] MEDS ORDERED: POTASSIUM CHLORIDE 10 MEQ / 100ML WTR IV ONE ×7 (01:09→08:08)
[2022-02-05] MEDS: NORMOSOL-R 1,000 ML IV SCH ×3 (01:10→21:29)
[2022-02-05] MEDS: POTASSIUM CHLORIDE 10 MEQ / 100ML WTR IV ONE ×2 (01:18→01:25)
[2022-02-05] MEDS: EPLERENONE~ORDER AWAITING ACTION SCH ×3 (01:28→17:03)
[2022-02-05] MEDS: AVODART~ORDER AWAITING ACTION SCH ×3 (01:28→17:03)
[2022-02-05 04:47] LABS: INR 1.4 (0.9-1.1); Prothrombin Time 14.8 Seconds (9.0-12.0)
[2022-02-05 05:25] LABS: Basophils # (auto) 0.02 K/uL (0-0.2); Basophils % (auto) 0.5 %; Eosinophils # (auto) 0.08 K/uL (0-0.50); Eosinophils % (auto) 1.9 %; Hematocrit (blood only) 28.3 % (40.1-51.0); Hemoglobin 8.7 g/dl (14.0-18.0); Immature Granulocytes # (auto) 0.01 K/uL (0.00-0.02); Immature Granulocytes % (auto) 0.2 %; Lymphocytes # (auto) 0.77 K/uL (1.2-3.4); Lymphocytes % (auto) 18.2 %; Macrocytosis Present; Mean Corpuscular Hgb Conc 30.7 g/dL (32.0-36.0); Mean Corpuscular Volume 64.9 fL (80.0-100.0); Monocytes # (auto) 0.49 K/uL (0.24-0.82); Monocytes % (auto) 11.6 %; Neutrophils # (auto) 2.87 K/uL (1.4-6.5); Neutrophils % (auto) 67.6 %; Platelet Count 87 K/uL (130-400); Platelet Estimate Decreased (Normal); Polychromasia 2+; RDW Coefficient of Variation 24.5 % (11.5-14.5); RDW Standard Deviation 53.8 fL (36.4-46.3); Red Blood Count 4.36 M/uL (4.63-6.08); Schistocytes 1+; Target Cells 2+; White Blood Count 4.24 K/ul (4.8-10.8)
[2022-02-05 05:35] LABS: Albumin Level 2.3 gm/dl (3.4-5.0); BUN Creatinine Ratio 11.1 (10-20); Bilirubin Direct 0.3 mg/dl (0-0.2); Bilirubin,Total 1.3 mg/dl (0.2-1.0); Calcium 7.6 mg/dl (8.5-10.1); Creatinine Clr Calc Pharmacy 154.7 ml/min; Est GFR (African American) 116.5 ml/min; Est GFR (Non-African American) 100.5 ml/min; Magnesium 1.5 mg/dl (1.7-2.4); Potassium 3.2 mmol/L (3.5-5.1); Total Protein 5.2 gm/dl (6.0-8.3)
[2022-02-05 05:42] LABS: Troponin I High Sensitivity 27.9 pg/ml (0-20)
[2022-02-05] MEDS: INSULIN ASPART PER UNIT SC SCH ×3 (06:14→20:35)
[2022-02-05] MEDS: DOXYCYCLINE HYCLATE 100 MG in DEXTROSE 5% 100 ML IV SCH ×2 (06:23→16:23)
--- NOTE | 2022-02-05 09:21 | Gastrointestinal Consultation ---
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 + cholelithiasis wo cholecystitis, CBD 7mm. - NPO - PPI daily for now - Plan for EUS eval +/- ERCP if choledocholithiasis noted (pt on Warfarin, last dose "days ago", INR 1.4) - F/U cirrhosis care with [facility] Supervising Physician Co-Signing Physician Notes I saw and evaluated the patient. Patient is normally followed by the [facility]. In addition to [facility] for his underlying liver disease. We were consulted as the patient had right-sided abdominal discomfort associated with nausea, coffee-ground emesis and elevated liver associated enzymes. The patient reports that overnight Her nausea has improved significantly. She is Physical examination Mild scleral icterus minimal epigastric tenderness Impression; patient presents for evaluation of nausea, coffee-ground emesis and elevated liver enzymes. We were asked to perform further evaluation with upper endoscopy endoscopic ultrasound in the hospital and ERCP today. I discussed the risks of the procedures with the patient to include bleeding, infection, perforation, pain and need for follow-up studies. The patient will resume care with his normal GI group after today's examination. History of Present Illness Reason for Consultation: Elevated LFTs, hx of cirrhosis Requesting Physician: Dr. Rashawn Wood Attending Physician: Dr. Mateusz Atkins History of Present Illness Pt is a 71 yo male w PMHx of SWIFT cirrhosis, DM II, discitis, HTN, Afib on Coumadin, CAD s/p CABG, HTN, HLD, ALDO on CPAP who presented yesterday w co mid upper abd pain and n/v yesterday. He denies any hematemesis or coffee ground emesis. He admits that he's not been taking his Lactulose for days and bowels not moving as much but is on Xifaxan still. He denies any constipation, diarrhea or sign of rectal bleeding. No associated fever, chills. On eval, noted that he has no leukocytosis, stable anemia, LFTs up but close to baseline. Lipase normal. Abd imaging studies w U/S and CT abd/pelvis showed cirrhotic liver w signs of portal HTN, ascites, mild infiltration on pnacreatic head, + cholelithiasis wo cholecystitis but gallbladder wall thickening related to cirrhosis/ascites. There are also thick wall loops of small bowel in LUQ area w fluid ? enteritis. Allergies Allergy/AdvReac Type Severity Reaction Status Date / Time simvastatin AdvReac Intermediate GI UPSET- Verified 01/25/22 15:18 OK WITH LIPITOR pioglitazone AdvReac Mild GI UPSETS Verified 01/25/22 15:18 spironolactone AdvReac Mild NIPPLES Verified 01/25/22 15:18 HURT Home Medications Medication Instructions Recorded Confirmed Type multivitamin 1 tab PO QAM 01/23/19 02/04/22 History diclofenac sodium 1 % topical gel 4 g topical QID #100 grams 02/17/21 02/04/22 Rx lactulose 20 gram/30 mL oral 45 ml PO BID 30 days #2,700 mL 03/15/21 02/04/22 Rx solution isosorbide mononitrate 120 mg 120 mg PO QPM #90 tabs 03/16/21 02/04/22 Rx tablet,extended release 24 hr insulin glargine 100 unit/mL (3 8 unit (0.08 mL) subcut HS 90 days 07/02/21 02/04/22 Rx mL) subcutaneous pen (Lantus #7.2 mL Solostar U-100 Insulin) ezetimibe 10 mg tablet 10 mg PO QPM 90 days #90 tabs 07/06/21 02/04/22 Rx nitroglycerin 0.6 mg sublingual 0.6 mg sublingual DIRECTED PRN 07/07/21 02/04/22 Rx tablet Chest Pain #25 tabs duloxetine 60 mg capsule,delayed 60 mg PO QAM #90 caps 09/03/21 02/04/22 Rx release eplerenone 25 mg tablet 25 mg PO QAM 90 days #90 tabs 09/03/21 02/04/22 Rx pantoprazole 40 mg tablet,delayed 40 mg PO BID #180 tabs 09/03/21 02/04/22 Rx release bupropion HCl 100 mg tablet,12 hr 100 mg PO QAM #90 ea 10/23/21 02/04/22 Rx sustained-release (Wellbutrin SR) dutasteride 0.5 mg capsule 0.5 mg PO HS #90 caps 11/03/21 02/04/22 Rx (Avodart) tamsulosin 0.4 mg capsule 0.4 mg PO HS 90 days #90 caps 11/03/21 02/04/22 Rx zinc 50 mg tablet 50 mg PO DAILY #30 tabs 11/17/21 02/04/22 Rx diltiazem HCl 180 mg capsule,24 180 mg PO QAM #90 caps 01/07/22 02/04/22 Rx hr,extended release doxycycline monohydrate 100 mg 100 mg PO BIDM #180 caps 01/07/22 02/04/22 Rx capsule furosemide 40 mg tablet 80 mg PO QAM #180 tabs 01/07/22 02/04/22 Rx gabapentin 300 mg capsule 300 mg PO TID #270 caps 01/07/22 02/04/22 Rx omega-3 acid ethyl esters 1 gram 1 cap PO BID #180 caps 01/07/22 02/04/22 Rx capsule propranolol 10 mg tablet 10 mg PO TID #270 tabs 01/07/22 02/04/22 Rx warfarin 5 mg tablet 5 mg PO DAILY #90 tabs 01/07/22 02/04/22 Rx warfarin 7.5 mg tablet 7.5 mg PO 6XWK #90 tabs 01/07/22 02/04/22 Rx rifaximin 550 mg tablet (Xifaxan) 550 mg PO TID #270 tabs 01/28/22 02/04/22 Rx lisinopril 40 mg tablet 20 mg PO DAILY 02/04/22 02/04/22 History Patient History Medical History Acute confusion Ambulatory dysfunction Anemia Anxiety and depression CAD (coronary artery disease) Cauda equina compression Chronic systolic CHF (congestive heart failure) Cirrhosis of liver not due to alcohol Cyst of kidney, acquired Depression Enlarged prostate Esophageal varices Essential tremor Expressive aphasia Fall from standing GERD (gastroesophageal reflux disease) Gout Hepatic hemangioma Hx of myocardial infarction 1995 Hyperlipidemia Hypertension Internal hemorrhoids Liver failure NOT CANDIDATE FOR LIVER 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 [facility] History of coronary artery bypass graft x 3 X2 - 1994 AND 2011 - [facility] History of esophagogastroduodenoscopy (EGD) (~05/29/19) History of heart surgery atrial septal deficit repair @ [facility] [place] 1993 at same time as CABG History of right knee surgery X4 to repair broken patella Hx of colonoscopy Hx of vasectomy Family History Mother Stroke Father Stroke Aunt Cancer Liver cancer and stomach cancer Other No family history of adverse response to anesthesia No significant family history Denies family history of Colon cancer Ovarian cancer Prostate cancer Myocardial infarction Breast cancer Social History Smoking Status: Former smoker Tobacco Type: Cigarettes Age Quit Using Tobacco: 60; Second Hand Exposure: No; Hx Alcohol Use: No Hx Substance Use: No Preferred Language: Portuguese Communication Ability: Effective Visual Impairment: No Limitations Hearing Ability: Normal Orthotic/Prosthetic Clinician Required: No Beliefs That Will Affect Care: None marital status: Current Living Situation: Spouse current occupational status: retired Other Information That Helps Us Care for You: No Feels Safe at Home: Yes Safety Concerns: Feels Safe At This Time Childhood Exposure to Second-Hand Smoke: Yes Dental Care, Regularly: Yes Physical Activity Frequency: 3-4 Times per Week Seatbelt Use: always Sunscreen Use: Yes Assistive Devices: Cane and Walker Review of Systems Review of Systems: All systems reviewed & are unremarkable except as noted in HPI & below Physical Exam Constitutional: WD/WN, vitals as above well groomed, cooperative and comfortable Eyes: PERRL, conjunctivae normal, anicteric sclerae ENMT: external ear and nose normal, oropharynx normal Respiratory: normal respiratory effort, lungs clear to auscultation Cardiovascular: RRR, no murmur, no edema Gastrointestinal (Abdomen): normal bowel sounds, soft, nontender, no hepatosplenomegaly Skin: no rashes, warm and dry no jaundice Neurologic: Motor/Sensory: no asterixis Psychiatric: A+Ox3, euthymic affect Lymphatic: no lymphedema Results & Data ([facility]) Vital Signs (Past 12 Hours) Vital Signs Temp Pulse Pulse Resp BP Pulse Ox O2 Del Method 02/05/22 07:30 36.8 C 60 18 120/63 95 02/05/22 07:30 68 02/05/22 07:30 CPAP 02/05/22 03:15 62 14 97 02/05/22 02:54 36.9 C 60 18 117/65 97 Nasal CPAP 02/05/22 00:23 Room Air 02/05/22 00:23 36.8 C 67 16 148/69 H 98 Room Air 02/05/22 00:20 65 02/05/22 00:18 65 02/04/22 23:09 36.8 C 61 18 172/89 H 97 Nasal CPAP 02/04/22 22:59 61 19 96 (1) Nausea & vomiting Vomiting type: unspecified Qualified Code(s): R11.2 - Nausea with vomiting, unspecified
[2022-02-05] MEDS: buPROPion SR 100 MG TABCR PO SCH (09:40)
[2022-02-05] MEDS: GABAPENTIN 300 MG CAP PO SCH ×3 (09:40→20:34)
[2022-02-05] MEDS: DULoxetine HCL 60 MG CAP PO SCH (09:40)
[2022-02-05] MEDS: LACTULOSE SYRUP 20 GM/30 ML UDC PO SCH ×2 (09:40→20:36)
[2022-02-05] MEDS: dilTIAZem ER 180 MG CAPCR PO SCH (09:40)
[2022-02-05] MEDS: lisinopril 20 MG TAB PO SCH (09:40)
[2022-02-05] MEDS: rifAXIMin 550 MG TABLET PO SCH ×3 (09:41→20:38)
[2022-02-05] MEDS: PROPRANOLOL HCL 10 MG TAB PO SCH ×3 (09:41→20:37)
[2022-02-05] MEDS: MAGNESIUM SULFATE / D5W 1 GM/100 ML BAG IV SCH ×2 (12:26→19:06)
[2022-02-05] MEDS ORDERED: MIDAZOLAM HCL 1 MG/ML 2ML VIAL ONE (13:12)
[2022-02-05] MEDS ORDERED: DEXAMETHASONE SOD INJ 4 MG/ML VIAL ONE (13:12)
[2022-02-05] MEDS ORDERED: ONDANSETRON INJ 2 MG/ML 2 ML VIAL ONE (13:12)
[2022-02-05] MEDS ORDERED: fentaNYL citrate 100 MCG/2 ML VIAL ONE (13:12)
[2022-02-05] MEDS ORDERED: PROPOFOL IV EMULSION 10 MG/ML 20 ML VIAL IV ONE (13:12)
[2022-02-05] MEDS ORDERED: ATROPINE SULFATE 0.1 MG/ML 10ML SYR IV PRN (13:25)
[2022-02-05] MEDS ORDERED: ePHEDrine sulfate 50 MG/ML AMP IV PRN (13:25)
[2022-02-05] MEDS ORDERED: PROMETHAZINE HCL 6.25 MG in SODIUM CHLORIDE 0.9% 50 ML IV PRN (13:25)
[2022-02-05] MEDS ORDERED: fentaNYL citrate 100 MCG/2 ML VIAL IV PRN (13:25)
--- NOTE | 2022-02-05 13:25 | History & Physical Bridge Note ---
Date of Service February 05, 2022 History & Physical Bridge Note I have examined the patient, reviewed the History & Physical and in the interval since the performance of the History & Physical I have noted the following changes of clinical significance: no changes noted
--- NOTE | 2022-02-05 13:25 | Anesthesiology Consultation ---
Date of Service February 05, 2022 Assessment & Plan ASA ASA4 Proposed Anesthesia Anesthesia Type: General Risk / Benefits Reviewed With: PT / POA / Parent / Guardian, Accepts Plan and Informed Consent Obtained History Surgery Operation Date: 02/05/22 10:20 Proposed Procedures p Endoscopic Ultrasonography [place] - Mateusz Atkins DO Height/Weight Height: 5 ft 11 in Weight: 134.2 kg Allergies Allergy/AdvReac Type Severity Reaction Status Date / Time simvastatin AdvReac Intermediate GI UPSET- Verified 02/05/22 13:18 OK WITH LIPITOR pioglitazone AdvReac Mild GI UPSETS Verified 02/05/22 13:18 spironolactone AdvReac Mild NIPPLES Verified 02/05/22 13:18 HURT Medications Home Medications Medication Instructions Recorded Confirmed Last Taken multivitamin 1 tab PO QAM 01/23/19 02/04/22 11/12/21 diclofenac sodium 1 % topical gel 4 g topical QID #100 grams 02/17/21 02/04/22 11/12/21 lactulose 20 gram/30 mL oral 45 ml PO BID 30 days #2,700 mL 03/15/21 02/04/22 11/12/21 solution isosorbide mononitrate 120 mg 120 mg PO QPM #90 tabs 03/16/21 02/04/22 11/12/21 tablet,extended release 24 hr insulin glargine 100 unit/mL (3 8 unit (0.08 mL) subcut HS 90 days 07/02/21 02/04/22 11/12/21 mL) subcutaneous pen (Lantus #7.2 mL Solostar U-100 Insulin) ezetimibe 10 mg tablet 10 mg PO QPM 90 days #90 tabs 07/06/21 02/04/22 11/12/21 nitroglycerin 0.6 mg sublingual 0.6 mg sublingual DIRECTED PRN 07/07/21 02/04/22 Unknown tablet Chest Pain #25 tabs duloxetine 60 mg capsule,delayed 60 mg PO QAM #90 caps 09/03/21 02/04/22 11/12/21 release eplerenone 25 mg tablet 25 mg PO QAM 90 days #90 tabs 09/03/21 02/04/22 11/12/21 pantoprazole 40 mg tablet,delayed 40 mg PO BID #180 tabs 09/03/21 02/04/22 11/12/21 release bupropion HCl 100 mg tablet,12 hr 100 mg PO QAM #90 ea 10/23/21 02/04/22 11/12/21 sustained-release (Wellbutrin SR) dutasteride 0.5 mg capsule 0.5 mg PO HS #90 caps 11/03/21 02/04/22 11/12/21 (Avodart) tamsulosin 0.4 mg capsule 0.4 mg PO HS 90 days #90 caps 11/03/21 02/04/22 11/12/21 zinc 50 mg tablet 50 mg PO DAILY #30 tabs 11/17/21 02/04/22 Unknown diltiazem HCl 180 mg capsule,24 180 mg PO QAM #90 caps 01/07/22 02/04/22 Unknown hr,extended release doxycycline monohydrate 100 mg 100 mg PO BIDM #180 caps 01/07/22 02/04/22 Unknown capsule furosemide 40 mg tablet 80 mg PO QAM #180 tabs 01/07/22 02/04/22 Unknown gabapentin 300 mg capsule 300 mg PO TID #270 caps 01/07/22 02/04/22 Unknown omega-3 acid ethyl esters 1 gram 1 cap PO BID #180 caps 01/07/22 02/04/22 Unknown capsule propranolol 10 mg tablet 10 mg PO TID #270 tabs 01/07/22 02/04/22 Unknown warfarin 5 mg tablet 5 mg PO DAILY #90 tabs 01/07/22 02/04/22 Unknown warfarin 7.5 mg tablet 7.5 mg PO 6XWK #90 tabs 01/07/22 02/04/22 Unknown rifaximin 550 mg tablet (Xifaxan) 550 mg PO TID #270 tabs 01/28/22 02/04/22 Unknown lisinopril 40 mg tablet 20 mg PO DAILY 02/04/22 02/04/22 Unknown Active Medications Generic Name Dose Route Start Last Admin Trade Name Freq PRN Reason Stop Dose Admin Bupropion HCl 100 mg 02/05/22 09:00 02/05/22 09:40 Bupropion Sr 100 Mg Tabcr PO 03/07/22 08:59 Not Given QAM PHIL Diltiazem HCl 180 mg 02/05/22 09:00 02/05/22 09:40 Diltiazem Er 180 Mg Capcr PO 03/07/22 08:59 Not Given QAM PHIL Duloxetine HCl 60 mg 02/05/22 09:00 02/05/22 09:40 Duloxetine Hcl 60 Mg Cap PO 03/07/22 08:59 Not Given QAM PHIL Ezetimibe 10 mg 02/04/22 21:00 02/04/22 23:03 Ezetimibe 10 Mg Tablet PO 03/06/22 20:59 10 mg QPM PHIL Administration Gabapentin 300 mg 02/04/22 21:00 02/05/22 12:39 Gabapentin 300 Mg Cap PO 03/06/22 20:59 Not Given TID PHIL Doxycycline Hyclate 100 mg/ 110 mls @ 50 mls/hr 02/05/22 06:00 02/05/22 09:45 Dextrose IV 03/07/22 05:59 Infused Q12H PHIL Infusion Parenteral Electrolytes 1,000 mls @ 110 mls/hr 02/04/22 20:35 02/05/22 01:10 Normosol-R IV 03/06/22 20:34 110 mls/hr .Q9H6M PHIL Administration Magnesium Sulfate/Dextrose 1 gm in 100 mls @ 50 mls/hr 02/05/22 12:00 02/05/22 12:26 Magnesium Sulfate / D5w IV 02/05/22 15:59 50 mls/hr Q2H PHIL Administration Insulin Aspart 0 units 02/04/22 21:15 02/05/22 12:39 Insulin Aspart Per Unit SC 03/06/22 21:14 Not Given Q6 PHIL Insulin Glargine 8 units 02/04/22 21:30 02/04/22 23:01 Lantus Per Unit Charge SQ 03/06/22 21:29 Not Given HS PHIL Isosorbide Mononitrate 120 mg 02/04/22 21:30 02/04/22 23:07 Isosorbide [place] Extended Rel 60 Mg Tabcr PO 03/06/22 21:29 120 mg HS PHIL Administration Lactulose 30 gm 02/04/22 21:00 02/05/22 09:40 Lactulose Syrup 20 Gm/30 Ml Udc PO 03/06/22 20:59 Not Given BID PHIL Lisinopril 20 mg 02/05/22 09:00 02/05/22 09:40 Lisinopril 20 Mg Tab PO 03/07/22 08:59 Not Given DAILY PHIL Miscellaneous 1 each 02/04/22 21:30 02/05/22 09:39 Avodart~Order Awaiting Action N/A 03/06/22 21:29 Not Given QS PHIL Miscellaneous 1 each 02/04/22 21:30 02/05/22 09:39 Eplerenone~Order Awaiting Action N/A 03/06/22 21:29 Not Given QS PHIL Miscellaneous 15 - 30 gm 02/04/22 20:35 02/04/22 23:00 Carbohydrates For Hypoglycemia PO 03/06/22 20:34 15 gm UD PRN Administration Hypoglycemia Protocol Propranolol HCl 10 mg 02/04/22 21:00 02/05/22 12:39 Propranolol Hcl 10 Mg Tab PO 03/06/22 20:59 Not Given TID PHIL Rifaximin 550 mg 02/04/22 21:00 02/05/22 12:40 Rifaximin 550 Mg Tablet PO 03/06/22 20:59 Not Given TID PHIL Tamsulosin HCl 0.4 mg 02/04/22 21:00 02/04/22 23:06 Tamsulosin Hcl 0.4 Mg Cap PO 03/06/22 20:59 0.4 mg HS PHIL Administration NPO Date Last Intake of Fluids: 02/05/22 Time Last Intake of Fluids: 00:00 Date Last Intake of Solids: 02/05/22 Time Last Intake of Solids: 00:00 Past Medical History Medical History Acute confusion Ambulatory dysfunction Anemia Anxiety and depression CAD (coronary artery disease) Cauda equina compression Chronic systolic CHF (congestive heart failure) Cirrhosis of liver not due to alcohol Cyst of kidney, acquired Depression Enlarged prostate Esophageal varices Essential tremor Expressive aphasia Fall from standing GERD (gastroesophageal reflux disease) Gout Hepatic hemangioma Hx of myocardial infarction 1994 Hyperlipidemia Hypertension Internal hemorrhoids Liver failure NOT CANDIDATE FOR LIVER TRANSPLANT - longterm (current) use of anticoagulants warfarin daily Mass of petrous temporal bone Medical marijuana use Morbid obesity BMI 43 Opioid dependence Osteomyelitis of lumbar spine PAF (paroxysmal atrial fibrillation) Pancytopenia Pigmented nevus Pulmonary nodule Seborrheic keratosis Sleep apnea USES CPAP Thyroid nodule Tubular adenoma of colon Type 2 diabetes mellitus Vitamin D deficiency Wide-complex tachycardia Exercise / Class Metabolic Activity II 4-5 Yardwork/Stairs/Walk up hill Past Family History Family History Mother Stroke Father Stroke Aunt Cancer Liver cancer and stomach cancer Other No family history of adverse response to anesthesia No significant family history Denies family history of Colon cancer Ovarian cancer Prostate cancer Myocardial infarction Breast cancer Past Surgical History Surgical History History of back surgery X3 - 2 FOR FUSION AND LAST TO CLEAN UP INFECTION History of cardiac cath X4 - [facility] - LAST ONE 02/2011 ? [facility] History of coronary artery bypass graft x 3 X2 - 1993 AND 2010 - [facility] History of esophagogastroduodenoscopy (EGD) (~05/29/19) [place] of heart [place] [facility] [place]G History of right knee surgery X4 to repair broken patella Hx of colonoscopy Hx of vasectomy Past Anesthesia History No Hx of Anesthesia Complications and No Family Hx of Anesthesia Complications History of PONV No Hx of PONV and No Hx of Motion Sickness Social History Smoking Status: Former smoker tobacco type: cigarettes Hx Alcohol Use: No Alcohol type: beer and wine alcohol intake frequency: holidays/special occasions only Hx Substance Use: No substance use type: marijuana Substance Use Type Other:: medical marijuana Last Used Substance: Days (ago) Last Used Substance Other:: presciption for medicinal marijuana Review of Systems denies fever/cough/ colds/ chest pain/ SOB/ +ALDO denies ALDO Physical Exam Vital Signs Last Vital Signs Temp 36.8 C 02/05/22 11:00 Pulse 62 02/05/22 11:00 Resp 18 02/05/22 11:00 BP 112/59 L 02/05/22 11:00 Pulse Ox 96 02/05/22 11:00 O2 Del Method 02/05/22 07:30 ENMT Mouth: no TMJ abnormality and no dentition abnormality Thyromental Distance: > or= 3.5 Finger Breadths Mallampati Class: II Neck + thick neck; neck extension not limited Respiratory normal respiratory effort; no respiratory distress Auscultation: lungs clear to auscultation bilaterally Cardiovascular Rate/Rhythm: regular rate and regular rhythm Neurologic moves all extremities Psychiatric Orientation: alert and oriented x 3 Testing Laboratory Results 02/05/22 04:05 02/05/22 04:05 PT 14.8 Seconds (9.0-12.0) H 02/05/22 04:05 INR 1.4 (0.9-1.1) H 02/05/22 04:05 Urine Color Yellow 02/04/22 12:55 Urine Appearance Clear (Clear) 02/04/22 12:55 Urine pH 8.5 (4.5-7.5) H 02/04/22 12:55 Ur Specific [place] 1.007 (1.000-1.030) 02/04/22 12:55 Urine Protein Negative (Negative) 02/04/22 12:55 Urine Glucose (UA) Negative (Negative) 02/04/22 12:55 Urine Ketones Negative (Negative) 02/04/22 12:55 Urine Nitrite Negative (Negative) 02/04/22 12:55 Ur Leukocyte Esterase 2+ (Negative) H 02/04/22 12:55 Urine WBC (Auto) >30 /hpf (0-5) H 02/04/22 12:55 Urine RBC (Auto) 0-4 /hpf (0-4) 02/04/22 12:55 U Hyaline Cast (Auto) 1-5 /lpf (0-5) 02/04/22 12:55 U Epithel Cells (Auto) 0-5 /lpf (0-5) 02/04/22 12:55 Urine Bacteria (Auto) 2+ (Negative) H 02/04/22 12:55 02/04/22 12:55 Urine Culture - Preliminary Urine,Clean Catch Gram negative bacilli 02/05/22 02/05/22 02/05/22 13:15 12:35 06:09 POC Glucose 77 74 100 H
--- NOTE | 2022-02-05 13:45 | GI REPORT ---
Patient Name: Chivo Herring Procedure Date: 02/05/2022 1:23 PM Date of : 1950 Admit Type: Inpatient Age: 71 Gender: Male Attending MD: Mateusz Atkins DO Procedure: Upper GI endoscopy Providers: Mateusz Atkins DO Referring MD: Rashawn Wood M.d., Luis Villa DO Indications: Nausea with vomiting Medicines: General Anesthesia Complications: No immediate complications. Estimated blood loss: Minimal. Estimated Blood Loss: Estimated blood loss was minimal. Procedure: Pre-Anesthesia Assessment: - Prior to the procedure, a History and Physical was performed, and patient medications, allergies and sensitivities were reviewed. The patient's tolerance of previous anesthesia was reviewed. - The risks and benefits of the procedure and the sedation options and risks were discussed with the patient. All questions were answered and informed consent was obtained. - Patient identification and proposed procedure were verified prior to the procedure by the physician, the nurse and the crate builder. The procedure was verified in the procedure room. - Pre-procedure physical examination revealed no contraindications to sedation. - ASA Grade Assessment: III - A patient with severe systemic disease. - After reviewing the risks and benefits, the patient was deemed in satisfactory condition to undergo the procedure. - The anesthesia plan was to use general anesthesia. - Immediately prior to administration of medications, the patient was re-assessed for adequacy to receive sedatives. - The heart rate, respiratory rate, oxygen saturations, blood pressure, adequacy of pulmonary ventilation, and response to care were monitored throughout the procedure. - The physical status of the patient was re-assessed after the procedure. After obtaining informed consent, the endoscope was passed under direct vision. Throughout the procedure, the patient's blood pressure, pulse, and oxygen saturations were monitored continuously.The esophageal pH study was accomplished without difficulty. The patient tolerated the procedure well. The Endoscope was introduced through the mouth, and advanced to the third part of duodenum. Findings: Three columns of grade II varices with no bleeding and no stigmata of recent bleeding were found in the lower third of the esophagus, 34 to 38 cm from the incisors. They were 4 mm in largest diameter. No red kiera signs were present. Moderate portal hypertensive gastropathy was found in the entire examined stomach. The examined duodenum was normal. Impression: - Grade II esophageal varices with no bleeding and no stigmata of recent bleeding. - Portal hypertensive gastropathy. - Normal examined duodenum. - No specimens collected. Recommendation: - Perform an upper endoscopic ultrasound (UEUS) today. - Repeat upper endoscopy in 1 year for surveillance. Mateusz Atkins D.O. Mateusz Atkins, 02/05/2022 1:44:25 PM This report has been signed electronically. Note Initiated On: 02/05/2022 1:23 PM Number of Addenda: 0 I attest to the content of the Intraoperative Record and orders documented therein, exceptions below {[id number]}
[2022-02-05] MEDS ORDERED: LARYING-O-JET KIT (LTA) ONE (13:53)
[2022-02-05] MEDS ORDERED: LIDOCAINE 2% MPF LOCAL 5 ML VIAL INFIL ONE (13:53)
--- NOTE | 2022-02-05 14:12 | Post Operative Brief Note ---
Immediate Post Op Note v1 Date of Surgery February 05, 2022 Pre & Post Diagnosis Operation Date: 02/05/22 10:20 Pre-Op Diagnosis: CIRRHOSIS, VOMITTING, GB VS. INFECTIOUS CAUSE Post-Op Diagnosis: Gallstones I identified the patient and participated in the time-out.: Yes Procedure Operation Date: 02/05/22 10:20 Actual Procedures p Esophagogastroduodenoscopy - Mateusz Atkins DO s Ultrasound Anesthesia Sedation - Mateusz Atkins DO Surgeon Mateusz Atkins, Base Ply Hand none Estimated Blood Loss 0 Findings Consistent with Post-Op Diagnosis
--- NOTE | 2022-02-05 14:14 | Communication Note ---
Date of Service: February 05, 2022 The patient underwent upper endoscopy and endoscopic ultrasound this afternoon. He was found to have evidence of portal hypertensive gastropathy and grade 2 esophageal varices. The patient should have a repeat upper endoscopy with his regular GI provider in approximately 1 year. With regard to the endoscopic ultrasound he was found to have a normal-appearing common bile duct. Gallbladder was notable for numerous small stones within it. Recommendations Advance diet as tolerated Suggest a general surgery consultation to discuss cholecystectomy if patient not a candidate at [facility] would have been discussed this with his transplant service, not a candidate therapy could certainly offer endoscopic management with an Axios stent
--- NOTE | 2022-02-05 14:56 | Anesthesiology Progress Note ---
Date of Service February 05, 2022 Anesthesia Post Procedure Vital Signs Vital Signs: Temp Pulse Pulse Pulse Resp BP Pulse Ox 02/05/22 14:35 36.2 C L 68 20 150/88 H 97 02/05/22 14:25 80 15 136/89 94 02/05/22 14:15 75 21 152/76 H 100 02/05/22 14:45 69 19 140/79 95 02/05/22 14:04 36.1 C L 72 15 146/83 H 99 02/05/22 13:09 36.7 C 75 20 182/95 H 95 02/05/22 11:00 36.8 C 62 18 112/59 L 96 02/05/22 07:30 36.8 C 60 18 120/63 95 02/05/22 07:30 68 02/05/22 07:30 02/05/22 03:15 62 14 97 02/05/22 02:54 36.9 C 60 18 117/65 97 02/05/22 00:23 02/05/22 00:23 36.8 C 67 16 148/69 H 98 02/05/22 00:20 65 02/05/22 00:18 65 02/04/22 23:09 36.8 C 61 18 172/89 H 97 02/04/22 22:59 61 19 96 02/04/22 18:16 61 16 173/100 H 96 02/04/22 16:35 36.9 C 90 20 177/100 H 94 O2 Del Method O2 Flow Rate 02/05/22 14:35 Room Air 02/05/22 14:25 Room Air 02/05/22 14:15 Oxymask 6 02/05/22 14:45 Room Air 02/05/22 14:04 Oxymask 6 02/05/22 13:09 Room Air 02/05/22 11:00 02/05/22 07:30 02/05/22 07:30 02/05/22 07:30 CPAP 02/05/22 03:15 02/05/22 02:54 Nasal CPAP 02/05/22 00:23 Room Air 02/05/22 00:23 Room Air 02/05/22 00:20 02/05/22 00:18 02/04/22 23:09 Nasal CPAP 02/04/22 22:59 02/04/22 18:16 Room Air 02/04/22 16:35 Room Air Transfer of Care Handoff Completed per policy Notes Mental Status: alert / awake / arousable and participated in evaluation Patient Amnestic to Procedure: Yes Nausea / Vomiting: adequately controlled Pain: adequately controlled Airway Patency, RR, SpO2: stable & adequate BP & HR: stable & adequate Hydration State: stable & adequate Anesthetic Complications: no major complications apparent and Pt Satisfied with anesthetic care
--- NOTE | 2022-02-05 14:58 | GI REPORT ---
Patient Name: Chivo Herring Procedure Date: 02/05/2022 1:28 PM Date of : 1950 Admit Type: Inpatient Age: 71 Gender: Male Attending MD: Mateusz Atkins DO Procedure: Upper EUS Providers: Mateusz Atkins DO Referring MD: Rashawn Wood M.d., Luis Villa, DO Indications: Elevated liver enzymes, Suspected choledocholithiasis Medicines: General Anesthesia Complications: No immediate complications. Estimated blood loss: Minimal. Estimated Blood Loss: Estimated blood loss was minimal. Procedure: Pre-Anesthesia Assessment: - Prior to the procedure, a History and Physical was performed, and patient medications, allergies and sensitivities were reviewed. The patient's tolerance of previous anesthesia was reviewed. - The risks and benefits of the procedure and the sedation options and risks were discussed with the patient. All questions were answered and informed consent was obtained. - Patient identification and proposed procedure were verified prior to the procedure by the physician, the nurse and the tar roofer. The procedure was verified in the procedure room. - Pre-procedure physical examination revealed no contraindications to sedation. - ASA Grade Assessment: IV - A patient with severe systemic disease that is a constant threat to life. - After reviewing the risks and benefits, the patient was deemed in satisfactory condition to undergo the procedure. - The anesthesia plan was to use general anesthesia. - Immediately prior to administration of medications, the patient was re-assessed for adequacy to receive sedatives. - The heart rate, respiratory rate, oxygen saturations, blood pressure, adequacy of pulmonary ventilation, and response to care were monitored throughout the procedure. - The physical status of the patient was re-assessed after the procedure. After obtaining informed consent, the endoscope was passed under direct vision. Throughout the procedure, the patient's blood pressure, pulse, and oxygen saturations were monitored continuously. The Endosonoscope was introduced through the mouth, and advanced to the second part of duodenum. The upper EUS was accomplished without difficulty. The patient tolerated the procedure well. Findings: ENDOSONOGRAPHIC FINDING: : There was no sign of significant endosonographic abnormality in the common bile duct. The maximum diameter of the duct was 4 mm. No stones and no biliary sludge were identified. Multiple stones were visualized endosonographically in the gallbladder. They were hyperechoic and characterized by shadowing. There was abnormal echogenicity in the visualized portion of the liver. This area was hypoechoic and heterogenous. There was no sign of significant endosonographic abnormality in the entire pancreas. The pancreatic duct measured up to 2 mm in diameter. No masses, no cysts, the pancreatic duct was thin in caliber. There was no sign of significant endosonographic abnormality in the left adrenal gland. No adrenal gland enlargement was identified. No lymphadenopathy seen. Impression: - There was no sign of significant pathology in the common bile duct. - Multiple stones were visualized endosonographically in the gallbladder. - There was abnormal echogenicity in the visualized portion of the liver. This was hypoechoic and heterogenous. - There was no sign of significant pathology in the entire pancreas. - Endosonographic images of the left adrenal gland were unremarkable. - No specimens collected. Recommendation: - [facility] - Refer to a surgeon to discuss cholecystectomy - Patient may need to see his transplant surgeon if not a candidate for surgery at this facility, if being a surgical candidate by his transplant center we could certainly offer intervention with an Axios stent to the gallbladder.. Mateusz Atkins D.O. Mateusz Atkins, 02/05/2022 2:58:22 PM This report has been signed electronically. Note Initiated On: 02/05/2022 1:28 PM Number of Addenda: 0 I attest to the content of the Intraoperative Record and orders documented therein, exceptions below {[id number]}
--- NOTE | 2022-02-05 15:09 | Surgery Consultation ---
Date of Consultation February 05, 2022 Assessment & Plan (1) Nausea & vomiting: No evidence of acute cholecystitis on CT or US. Would not be a candidate for cholecystectomy at our facility. May have some enteritis by CT. Continue supportive care. If symptoms persist, can follow-up with [facility]. Supervising Physician Co-Signing Physician Notes I personally saw and evaluated the patient with Byron Cunningham PA-C and agree with the assessment and plan. 71-year-old male with cirrhosis, esophageal varices, portal hypertension, cholelithiasis He has no signs of acute cholecystitis on ultrasound or CT He is not a candidate for cholecystectomy here at this facility Surgery will sign off at this time, please call with any questions or concerns History of Present Illness Attending Physician: Rashawn Wood History of Present Illness 71 y/o morbidly obese male diabetic with cirrhosis, portal HTN, esophageal varices on coumadin for A-fib admitted yesterday for N/V, elevated LFTs. Had EUS today, we were asked to evaluate for cholecystectomy. Denies pain today and nausea improved. Allergies Allergy/AdvReac Type Severity Reaction Status Date / Time simvastatin AdvReac Intermediate GI UPSET- Verified 02/05/22 13:18 OK WITH LIPITOR pioglitazone AdvReac Mild GI UPSETS Verified 02/05/22 13:18 spironolactone AdvReac Mild NIPPLES Verified 02/05/22 13:18 HURT Home Medications Medication Instructions Recorded Confirmed Type multivitamin 1 tab PO QAM 01/23/19 02/04/22 History diclofenac sodium 1 % topical gel 4 g topical QID #100 grams 02/17/21 02/04/22 Rx lactulose 20 gram/30 mL oral 45 ml PO BID 30 days #2,700 mL 03/15/21 02/04/22 Rx solution isosorbide mononitrate 120 mg 120 mg PO QPM #90 tabs 03/16/21 02/04/22 Rx tablet,extended release 24 hr insulin glargine 100 unit/mL (3 8 unit (0.08 mL) subcut HS 90 days 07/02/21 02/04/22 Rx mL) subcutaneous pen (Lantus #7.2 mL Solostar U-100 Insulin) ezetimibe 10 mg tablet 10 mg PO QPM 90 days #90 tabs 07/06/21 02/04/22 Rx nitroglycerin 0.6 mg sublingual 0.6 mg sublingual DIRECTED PRN 07/07/21 02/04/22 Rx tablet Chest Pain #25 tabs duloxetine 60 mg capsule,delayed 60 mg PO QAM #90 caps 09/03/21 02/04/22 Rx release eplerenone 25 mg tablet 25 mg PO QAM 90 days #90 tabs 09/03/21 02/04/22 Rx pantoprazole 40 mg tablet,delayed 40 mg PO BID #180 tabs 09/03/21 02/04/22 Rx release bupropion HCl 100 mg tablet,12 hr 100 mg PO QAM #90 ea 10/23/21 02/04/22 Rx sustained-release (Wellbutrin SR) dutasteride 0.5 mg capsule 0.5 mg PO HS #90 caps 11/03/21 02/04/22 Rx (Avodart) tamsulosin 0.4 mg capsule 0.4 mg PO HS 90 days #90 caps 11/03/21 02/04/22 Rx zinc 50 mg tablet 50 mg PO DAILY #30 tabs 11/17/21 02/04/22 Rx diltiazem HCl 180 mg capsule,24 180 mg PO QAM #90 caps 01/07/22 02/04/22 Rx hr,extended release doxycycline monohydrate 100 mg 100 mg PO BIDM #180 caps 01/07/22 02/04/22 Rx capsule furosemide 40 mg tablet 80 mg PO QAM #180 tabs 01/07/22 02/04/22 Rx gabapentin 300 mg capsule 300 mg PO TID #270 caps 01/07/22 02/04/22 Rx omega-3 acid ethyl esters 1 gram 1 cap PO BID #180 caps 01/07/22 02/04/22 Rx capsule propranolol 10 mg tablet 10 mg PO TID #270 tabs 01/07/22 02/04/22 Rx warfarin 5 mg tablet 5 mg PO DAILY #90 tabs 01/07/22 02/04/22 Rx warfarin 7.5 mg tablet 7.5 mg PO 6XWK #90 tabs 01/07/22 02/04/22 Rx rifaximin 550 mg tablet (Xifaxan) 550 mg PO TID #270 tabs 01/28/22 02/04/22 Rx lisinopril 40 mg tablet 20 mg PO DAILY 02/04/22 02/04/22 History Patient History Medical History Acute confusion Ambulatory dysfunction Anemia Anxiety and depression CAD (coronary artery disease) Cauda equina compression Chronic systolic CHF (congestive heart failure) Cirrhosis of liver not due to alcohol Cyst of kidney, acquired Depression Enlarged prostate Esophageal varices Essential tremor Expressive aphasia Fall from standing GERD (gastroesophageal reflux disease) Gout Hepatic hemangioma Hx of myocardial infarction 1994 Hyperlipidemia Hypertension Internal hemorrhoids Liver failure NOT CANDIDATE FOR LIVER TRANSPLANT - custodial (current) use of anticoagulants warfarin daily Mass of petrous temporal bone Medical marijuana use Morbid obesity BMI 43 Opioid dependence Osteomyelitis of lumbar spine PAF (paroxysmal atrial fibrillation) Pancytopenia Pigmented nevus Pulmonary nodule Seborrheic keratosis Sleep apnea USES CPAP Thyroid nodule Tubular adenoma of colon Type 2 diabetes mellitus Vitamin D deficiency Wide-complex tachycardia Surgical History History of back surgery X3 - 2 FOR FUSION AND LAST TO CLEAN UP INFECTION History of cardiac cath X4 - [facility] - LAST ONE 02/2011 ? [facility] [place] History of coronary artery bypass graft x 3 X2 - 1993 AND 2011 - [place] History of esophagogastroduodenoscopy (EGD) (~05/29/19) History of heart surgery atrial septal deficit repair [place] [facility] [place] at same time as CABG History of right knee surgery X4 to repair broken patella Hx of colonoscopy Hx of vasectomy Family History Mother Stroke Father Stroke Aunt Cancer Liver cancer and stomach cancer Other No family history of adverse response to anesthesia No significant family history Denies family history of Colon cancer Ovarian cancer Prostate cancer Myocardial infarction Breast cancer Social History Smoking Status: Former smoker Tobacco Type: Cigarettes Age Quit Using Tobacco: 60; Second Hand Exposure: No; Hx Alcohol Use: No Hx Substance Use: No Preferred Language: Amharic Communication Ability: Effective Visual Impairment: No Limitations Hearing Ability: Normal Fiberglass Product Tester Required: No Beliefs That Will Affect Care: None marital status: Current Living Situation: Spouse current occupational status: retired Other Information That Helps Us Care for You: No Feels Safe at Home: Yes Safety Concerns: Feels Safe At This Time Childhood Exposure to Second-Hand Smoke: Yes Dental Care, Regularly: Yes Physical Activity Frequency: 3-4 Times per Week Seatbelt Use: always Sunscreen Use: Yes Assistive Devices: Cane and Walker Review of Systems Constitutional: no fever, no chills and no anorexia Gastrointestinal: + abdominal pain, + nausea, + vomiting and + coffee ground emesis; no change in bowel habits Physical Exam Constitutional: + morbidly obese Respiratory: normal respiratory effort Cardiovascular: Rate/Rhythm: regular rate Gastrointestinal (Abdomen): Inspection/Auscultation: abdomen normal to inspection Percussion/Palpation: abdomen soft; abdomen nontender (RUQ) and no guarding Results & Data ([facility]) Vital Signs (Past 12 Hours) Vital Signs Temp Pulse Pulse Pulse Resp BP Pulse Ox 02/05/22 14:55 65 16 150/69 H 93 02/05/22 14:35 36.2 C L 68 20 150/88 H 97 02/05/22 14:25 80 15 136/89 94 02/05/22 14:15 75 21 152/76 H 100 02/05/22 14:45 69 19 140/79 95 02/05/22 14:04 36.1 C L 72 15 146/83 H 99 02/05/22 13:09 36.7 C 75 20 182/95 H 95 02/05/22 11:00 36.8 C 62 18 112/59 L 96 02/05/22 07:30 36.8 C 60 18 120/63 95 02/05/22 07:30 68 02/05/22 07:30 02/05/22 03:15 62 14 97 O2 Del Method O2 Flow Rate 02/05/22 14:55 Room Air 02/05/22 14:35 Room Air 02/05/22 14:25 Room Air 02/05/22 14:15 Oxymask 6 02/05/22 14:45 Room Air 02/05/22 14:04 Oxymask 6 02/05/22 13:09 Room Air 02/05/22 11:00 02/05/22 07:30 02/05/22 07:30 02/05/22 07:30 CPAP 02/05/22 03:15 PG Care Time/CCT Total # of Minutes Spent Total Time Spent with Patient: Total time spent is greater than 50% in coordination of care (as documented) at patient's floor/unit and/or counseling patient: Coding Level of Care Code 26507 Initial Inpt Care Lvl 3 Diagnoses Nausea & vomiting R11.2 Vomiting type: unspecified (1) Nausea & vomiting Vomiting type: unspecified Qualified Code(s): R11.2 - Nausea with vomiting, unspecified
[2022-02-05] MEDS: cefTRIAXone SODIUM 2,000 MG in DEXTROSE 5% 50 ML IV SCH (16:23)
[2022-02-05] MEDS ORDERED: Nursing to Pharmacy Communication SCH (17:15)
[2022-02-05] MEDS: EZETIMIBE 10 MG TABLET PO SCH (20:34)
[2022-02-05] MEDS: ISOSORBIDE MONO EXTENDED REL 60 MG TABCR PO SCH (20:36)
[2022-02-05] MEDS: TAMSULOSIN HCL 0.4 MG CAP PO SCH (20:38)
[2022-02-05] MEDS ORDERED: WARFARIN SOD 5 MG TAB PO SCH (21:00)
[2022-02-05] MEDS: LANTUS PER UNIT CHARGE SQ SCH (21:32)
--- NOTE | 2022-02-05 22:17 | Hospitalist Progress Note ---
Date of Service February 05, 2022 Assessment & Plan (1) Elevated LFTs: Plan: Patient with acute elevated LFTS, Bili, ALKpo4, acute on chronic elevation with history of SWIFT Cirrhosis - DDX- infectious vs. GB disease vs. volume depletion vs. Liver failure - Patient is not encephalopathic, he is on Coumadin so INR is elevated, normal ammonia, small amount of ascites - Blood cultures obtained - Tylenol pending - CT abdomen with narrowed portal vein but "likely patent" and already anticoagulated- clot less likely - Without abdominal pain or epigastric pain- RUQUS for evaluation for cholecystitis- follow with MRCP am - Consult GI - Continue with Rocephin for now await cultures and other diagnostics - Normosol IV On 02/05, negative MRCP. negative CT scan. will advance diet. will monitor for symptoms. If blood work improves, may consider discharge if tolerates diet. (2) Acute vomiting: Plan: Acute following eating last evening precluded by GERD without stomach or abdominal pain - Without diarrhea associated - however CT scan interpreted as a nonspecific enteritis. - DDX: GERD/Gastritis/PUD vs. GBD vs. Food bourne/enteritis vs. pancreatitis - not sick so makes food bourne less likely - Protonix 40mg IV now and then BID - Clears as tolerated pending above studies - Follow culture data- if diarrhea ensues obtain stool PCR - Pancreatitis unlikely at this time as he is without abdominal pain or elevated lipase- however treat supportively as above. -as stated above, advanced diet. 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 - With history of GRADE I varices - Continue Rifaximin, Lactulose - Lasix continue once volume repleted - Continue propranolol (5) Osteomyelitis of lumbar spine: Plan: ID consulted in 2019 for diskitis- since that time he has been on prophylactic doxycycline 100mg PO BID - Change to IV BID and continue until above pathology unveiled as well as tolerating PO (6) Chronic systolic CHF (congestive heart failure): Plan: Continue ANAIS as renal function is stable Continue Lasix once volume repleted Continue statin Trend HScTNI- mild elevation on check in EMD - likely type II demand as without ECG changes (7) Esophageal varices: Plan: Grade I on previous EGD - continue rifaximn and propranolol (8) Aldosteronism: Plan: Replete potassium give BP medications now - Continue with epleronone or equivalent - follow voluem status and electrolytes (9) BPH loc w urin obs/LUTS: Plan: Continue with Tamsulosin, Flomax - hold on Esteves catheter at this time as able to void - urine has lightened up in color following IVF (10) CAD (coronary artery disease): Plan: Continue as above Trend HScTNI (11) Hypercholesteremia: Plan: Continue Zetia (12) Essential (primary) hypertension: Plan: Continue Isosorbide Propranolol Diltiazem for his Afib/flutter Continue Lisinopril (13) Type 2 diabetes mellitus: Plan: Continue Lantus Aspart sliding scale without carb ratio until PO intake established - goal < 180 (14) Paroxysmal atrial flutter: Plan: Currently in NSR with PVCs - replete potassium Admission and Anticipated Discharge Date Admission Date: February 04, 2022 Subjective 71 yo female reports feeling well. His continues to have some nausea, but this is slightly improved. He has no new symptoms. Review of Systems Review of Systems: All systems reviewed & are unremarkable except as noted in HPI & below Physical Exam Physical Exam: General: awake, alert, Head: Normocephalic, atraumatic ENT: PERRL, EOMI, without icterus, no pharyngeal exudate, mucous membranes dry Neuro: AAO x 3, without encephalopathy, speech clear and appropriate, no nystagmus strength intact bilaterally 5/5, sensation intact and equal all extremities and dermatomes, no pronator drift Chest: equal rise and fall of the chest, no accessory muscle use, no heaves or thrills, Clear to auscultation, on room air, Cardiac: Regular rate and rhythm, telemetry reviewed-afib, skin warm dry, cap refill <3 seconds, peripheral pulses +2 no JVD, no murmur, +2 edema to feet and ankles GI: NABS x 4 quadrants, soft, nontender to palpation, no rebound, guarding or tenderness : Spontaneously voiding, no pain, no CVA tenderness, Psych: Normal mood and affect Skin: no rash or erythema Results & Data Results & Data ([facility]) Vital Signs (Past 12 Hours) Vital Signs Temp Pulse Pulse Resp BP Pulse Ox O2 Del Method 02/05/22 16:00 36.7 C 71 16 174/91 H 92 Room Air 02/05/22 15:30 70 17 152/79 H 95 Room Air 02/05/22 15:15 68 16 143/89 H 94 Room Air 02/05/22 15:00 65 16 150/69 H 93 Room Air 02/05/22 14:35 36.2 C L 68 20 150/88 H 97 Room Air 02/05/22 14:25 80 15 136/89 94 Room Air 02/05/22 14:15 75 21 152/76 H 100 Oxymask 02/05/22 14:45 69 19 140/79 95 Room Air 02/05/22 14:04 36.1 C L 72 15 146/83 H 99 Oxymask 02/05/22 13:09 36.7 C 75 20 182/95 H 95 Room Air 02/05/22 11:00 36.8 C 62 18 112/59 L 96 O2 Flow Rate 02/05/22 16:00 02/05/22 15:30 02/05/22 15:15 02/05/22 15:00 02/05/22 14:35 02/05/22 14:25 02/05/22 14:15 6 02/05/22 14:45 02/05/22 14:04 6 02/05/22 13:09 02/05/22 11:00 PG Care Time/CCT Total # of Minutes Spent Total Time Spent with Patient: Total time spent is greater than 50% in coordination of care (as documented) at patient's floor/unit and/or counseling patient: Coding Level of Care Code 33914 Subseq Hosp Care Lvl 3 Diagnoses Elevated LFTs R79.89 Acute vomiting R11.10 Subtherapeutic international normalized ratio (INR) R79.1 Cirrhosis of liver not due to alcohol K74.60 Osteomyelitis of lumbar spine M46.26 Chronic systolic CHF (congestive heart failure) I50.22 Esophageal varices I85.00 Aldosteronism E26.9 BPH loc w urin obs/LUTS N40.1 CAD (coronary artery disease) I25.10 Hypercholesteremia E78.00 Essential (primary) hypertension I10 Type 2 diabetes mellitus E11.9 Paroxysmal atrial flutter I48.92
[2022-02-06] MEDS: AVODART~ORDER AWAITING ACTION SCH ×3 (01:03→15:05)
[2022-02-06] MEDS: EPLERENONE~ORDER AWAITING ACTION SCH ×3 (01:03→15:06)
[2022-02-06] MEDS: NORMOSOL-R 1,000 ML IV SCH ×2 (01:11→08:59)
[2022-02-06 03:55] LABS: A calco-baum cmplx NotReported Not Detected (NotDetected); Bact fragilis Not Reported Not Detected (NotDetected); C auris Not Reported Not Detected (NotDetected); Calbicans Not Reported Not Detected (NotDetected); Candida glabrata Not Reported Not Detected (NotDetected); Candida krusei Not Reported Not Detected (NotDetected); Cneoformans/gatti Not Reported Not Detected (NotDetected); Cparapsilosis Not Reported Not Detected (NotDetected); Ctropicalis Not Reported Not Detected (NotDetected); E cloacae compx Not Reported Not Detected (NotDetected); Efaecalis Not Reported Not Detected (NotDetected); Efaecium Not Reported Not Detected (NotDetected); Enterobacterales Not Reported Not Detected (NotDetected); Escherichia coli Not Reported Not Detected (NotDetected); H influenzae Not Reported Not Detected (NotDetected); K aerogenes Not Reported Not Detected (NotDetected); Koxytoca Not Reported Not Detected (NotDetected); Kpneumoniae grp Not Reported Not Detected (NotDetected); Lmonocyt Not Reported Not Detected (NotDetected); N meningitidis Not Reported Not Detected (NotDetected); P aeruginosa Not Reported Not Detected (NotDetected); Proteus spp Not Reported Not Detected (NotDetected); Salmonella spp Not Reported Not Detected (NotDetected); Smarcescens Not Reported Not Detected (NotDetected); Staph lugdunensis Not Reported Not Detected (NotDetected); Staph spp. Not Reported Not Detected (NotDetected); Staphaureus Not Reported Not Detected (NotDetected); Staphepi Not Reported Not Detected (NotDetected); Stenmaltophilia Not Reported Not Detected (NotDetected); Strep agal(GrpB) Not Reported Not Detected (NotDetected); Strep pneum Not Reported Not Detected (NotDetected); Strep pyog (GrpA) Not Reported Not Detected (NotDetected); Strep spp Not Reported Not Detected (NotDetected)
[2022-02-06] MEDS: DOXYCYCLINE HYCLATE 100 MG in DEXTROSE 5% 100 ML IV SCH ×2 (05:16→18:25)
[2022-02-06 05:31] LABS: Hematocrit (blood only) 27.8 % (40.1-51.0); Hemoglobin 8.5 g/dl (14.0-18.0); White Blood Count 4.11 K/ul (4.8-10.8)
[2022-02-06 05:37] LABS: Mean Corpuscular Hemoglobin 20.1 pg (25.0-34.0); Mean Corpuscular Hgb Conc 30.6 g/dL (32.0-36.0); Mean Corpuscular Volume 65.7 fL (80.0-100.0); Platelet Count 92 K/uL (130-400); RDW Coefficient of Variation 24.2 % (11.5-14.5); RDW Standard Deviation 53.7 fL (36.4-46.3); Red Blood Count 4.23 M/uL (4.63-6.08)
[2022-02-06 05:51] LABS: Albumin Level 2.5 gm/dl (3.4-5.0); BUN Creatinine Ratio 12.9 (10-20); Bilirubin Direct 0.2 mg/dl (0-0.2); Bilirubin,Total 1.2 mg/dl (0.2-1.0); Calcium 7.6 mg/dl (8.5-10.1); Creatinine Clr Calc Pharmacy 139.8 ml/min; Est GFR (African American) 111.6 ml/min; Est GFR (Non-African American) 96.3 ml/min; Magnesium 1.7 mg/dl (1.7-2.4); Potassium 3.3 mmol/L (3.5-5.1); Total Protein 5.6 gm/dl (6.0-8.3)
[2022-02-06 06:03] LABS: Anisocytosis Present; Immature Granulocytes # (auto) 0.01 K/uL (0.00-0.02); Immature Granulocytes % (auto) 0.2 %; Lymphocytes # (auto) 0.72 K/uL (1.2-3.4); Lymphocytes % (auto) 17.5 %; Macrocytosis Present; Monocytes # (auto) 0.36 K/uL (0.24-0.82); Monocytes % (auto) 8.8 %; Neutrophils # (auto) 3.02 K/uL (1.4-6.5); Neutrophils % (auto) 73.5 %; Polychromasia 1+; Schistocytes 1+; Target Cells 2+
[2022-02-06 06:23] LABS: INR 1.5 (0.9-1.1); Prothrombin Time 15.4 Seconds (9.0-12.0)
[2022-02-06] MEDS: DULoxetine HCL 60 MG CAP PO SCH (08:17)
[2022-02-06] MEDS: dilTIAZem ER 180 MG CAPCR PO SCH (08:17)
[2022-02-06] MEDS: lisinopril 20 MG TAB PO SCH (08:17)
[2022-02-06] MEDS: buPROPion SR 100 MG TABCR PO SCH (08:17)
[2022-02-06] MEDS: PROPRANOLOL HCL 10 MG TAB PO SCH ×3 (08:18→20:59)
[2022-02-06] MEDS: rifAXIMin 550 MG TABLET PO SCH ×3 (08:18→20:59)
[2022-02-06] MEDS: GABAPENTIN 300 MG CAP PO SCH ×3 (08:19→20:55)
[2022-02-06] MEDS: LACTULOSE SYRUP 20 GM/30 ML UDC PO SCH ×2 (08:19→20:57)
[2022-02-06] MEDS: INSULIN ASPART PER UNIT SC SCH ×4 (09:08→20:53)
[2022-02-06] MEDS: cefTRIAXone SODIUM 2,000 MG in DEXTROSE 5% 50 ML IV SCH (15:24)
[2022-02-06] MEDS: LANTUS PER UNIT CHARGE SQ SCH (20:53)
[2022-02-06] MEDS: DUTASTERIDE 0.5 MG CAPSULE PO SCH (20:54)
[2022-02-06] MEDS: EZETIMIBE 10 MG TABLET PO SCH (20:54)
[2022-02-06] MEDS: ISOSORBIDE MONO EXTENDED REL 60 MG TABCR PO SCH (20:56)
[2022-02-06] MEDS: TAMSULOSIN HCL 0.4 MG CAP PO SCH (21:00)
[2022-02-06] MEDS: WARFARIN SOD 7.5 MG TAB PO SCH (21:01)
--- NOTE | 2022-02-06 22:08 | Hospitalist Progress Note ---
Date of Service February 06, 2022 Assessment & Plan (1) Elevated LFTs: Plan: Patient with acute elevated LFTS, Bili, ALKpo4, acute on chronic elevation with history of SWIFT Cirrhosis - DDX- infectious vs. GB disease vs. volume depletion vs. Liver failure - Patient is not encephalopathic, he is on Coumadin so INR is elevated, normal ammonia, small amount of ascites - Blood cultures obtained - Tylenol pending - CT abdomen with narrowed portal vein but "likely patent" and already anticoagulated- clot less likely - Without abdominal pain or epigastric pain- RUQUS for evaluation for cholecystitis- follow with MRCP am - Consult GI - Continue with Rocephin for now await cultures and other diagnostics - Normosol IV On 02/05, negative MRCP. negative CT scan. will advance diet. will monitor for symptoms. If blood work improves, may consider discharge if tolerates diet. On 02/06 Patient tolerating diet as above.willl continue to advance. If patient continues to do well, and LFTs normalize. Plan would be to discharge either on Tuesday once caregivers have been set up. (2) Acute vomiting: Plan: Acute following eating last evening precluded by GERD without stomach or abdominal pain - Without diarrhea associated - however CT scan interpreted as a nonspecific enteritis. - DDX: GERD/Gastritis/PUD vs. GBD vs. Food bourne/enteritis vs. pancreatitis - not sick so makes food bourne less likely - Protonix 40mg IV now and then BID - Clears as tolerated pending above studies - Follow culture data- if diarrhea ensues obtain stool PCR - Pancreatitis unlikely at this time as he is without abdominal pain or elevated lipase- however treat supportively as above. -as stated above, advanced diet. 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 - With history of GRADE I varices - Continue Rifaximin, Lactulose - Lasix continue once volume repleted - Continue propranolol (5) Osteomyelitis of lumbar spine: Plan: ID consulted in 2019 for diskitis- since that time he has been on prophylactic doxycycline 100mg PO BID - Change to IV BID and continue until above pathology unveiled as well as tolerating PO (6) Chronic systolic CHF (congestive heart failure): Plan: Continue ANAIS as renal function is stable Continue Lasix once volume repleted Continue statin Trend HScTNI- mild elevation on check in EMD - likely type II demand as without ECG changes (7) Esophageal varices: Plan: Grade I on previous EGD - continue rifaximn and propranolol (8) Aldosteronism: Plan: Replete potassium give BP medications now - Continue with epleronone or equivalent - follow voluem status and electrolytes (9) BPH loc w urin obs/LUTS: Plan: Continue with Tamsulosin, Flomax - hold on Esteves catheter at this time as able to void - urine has lightened up in color following IVF (10) CAD (coronary artery disease): Plan: Continue as above Trend HScTNI (11) Hypercholesteremia: Plan: Continue Zetia (12) Essential (primary) hypertension: Plan: Continue Isosorbide Propranolol Diltiazem for his Afib/flutter Continue Lisinopril (13) Type 2 diabetes mellitus: Plan: Continue Lantus Aspart sliding scale without carb ratio until PO intake established - goal < 180 (14) Paroxysmal atrial flutter: Plan: Currently in NSR with PVCs - replete potassium Admission and Anticipated Discharge Date Admission Date: February 04, 2022 Subjective Patient reports feeling better. He has no new complaints. Extensive conversation with spouse on phone Review of Systems Review of Systems: All systems reviewed & are unremarkable except as noted in HPI & below Physical Exam Physical Exam: General: awake, alert, Head: Normocephalic, atraumatic ENT: PERRL, EOMI, without icterus, no pharyngeal exudate, mucous membranes dry Neuro: AAO x 3, without encephalopathy, speech clear and appropriate, no ny stagmus strength intact bilaterally 5/5, sensation intact and equal all extremities and dermatomes, no pronator drift Chest: equal rise and fall of the chest, no accessory muscle use, no heaves or thrills, Clear to auscultation, on room air, Cardiac: Regular rate and rhythm, telemetry reviewed-afib, skin warm dry, cap refill <3 seconds, peripheral pulses +2 no JVD, no murmur, +2 edema to feet and ankles GI: NABS x 4 quadrants, soft, nontender to palpation, no rebound, guarding or tenderness : Spontaneously voiding, no pain, no CVA tenderness, Psych: Normal mood and affect Skin: no rash or erythema Results & Data Results & Data ([facility]) Vital Signs (Past 12 Hours) Vital Signs Temp Pulse Pulse Resp BP Pulse Ox O2 Del Method 02/06/22 19:00 36.6 C 64 20 155/82 H 98 02/06/22 14:19 67 02/06/22 15:53 37.0 C 59 L 18 137/78 97 Room Air 02/06/22 11:13 36.9 C 75 19 159/76 H 99 Room Air PG Care Time/CCT Total # of Minutes Spent Total Time Spent with Patient: Total time spent is greater than 50% in coordination of care (as documented) at patient's floor/unit and/or counseling patient: Coding Level of Care Code 54095 Subseq Hosp Care Lvl 3 Diagnoses Elevated LFTs R79.89 Acute vomiting R11.10 Subtherapeutic international normalized ratio (INR) R79.1 Cirrhosis of liver not due to alcohol K74.60 Osteomyelitis of lumbar spine M46.26 Chronic systolic CHF (congestive heart failure) I50.22 Esophageal varices I85.00 Aldosteronism E26.9 BPH loc w urin obs/LUTS N40.1 CAD (coronary artery disease) I25.10 Hypercholesteremia E78.00 Essential (primary) hypertension I10 Type 2 diabetes mellitus E11.9 Paroxysmal atrial flutter I48.92 Time Spent (min) 35 Comment updated spouse on phone
[2022-02-07 05:29] LABS: INR 2.1 (0.9-1.1); Prothrombin Time 21.1 Seconds (9.0-12.0)
[2022-02-07 05:34] LABS: Albumin Level 2.4 gm/dl (3.4-5.0); BUN Creatinine Ratio 10.2 (10-20); Bilirubin Direct 0.2 mg/dl (0-0.2); Calcium 7.4 mg/dl (8.5-10.1); Creatinine Clr Calc Pharmacy 165.9 ml/min; Est GFR (African American) 119.7 ml/min; Est GFR (Non-African American) 103.3 ml/min; Magnesium 1.5 mg/dl (1.7-2.4); Total Protein 5.4 gm/dl (6.0-8.3)
[2022-02-07 05:38] LABS: Hematocrit (blood only) 27.9 % (40.1-51.0); Hemoglobin 8.5 g/dl (14.0-18.0); White Blood Count 4.94 K/ul (4.8-10.8)
[2022-02-07] MEDS: DOXYCYCLINE HYCLATE 100 MG in DEXTROSE 5% 100 ML IV SCH ×2 (06:07→18:28)
[2022-02-07 06:29] LABS: Mean Corpuscular Hemoglobin 19.9 pg (25.0-34.0); Mean Corpuscular Hgb Conc 30.5 g/dL (32.0-36.0); Mean Corpuscular Volume 65.3 fL (80.0-100.0); Nucleated RBC # (auto) 0.02 K/uL (0-0); Nucleated RBC % (auto) 0.4 %; Platelet Count 81 K/uL (130-400); RDW Coefficient of Variation 23.9 % (11.5-14.5); RDW Standard Deviation 53.9 fL (36.4-46.3); Red Blood Count 4.27 M/uL (4.63-6.08)
[2022-02-07 06:34] LABS: Eosinophils # (auto) 0.17 K/uL (0-0.50); Eosinophils % (auto) 3.4 %; Immature Granulocytes # (auto) 0.01 K/uL (0.00-0.02); Immature Granulocytes % (auto) 0.2 %; Lymphocytes # (auto) 0.71 K/uL (1.2-3.4); Lymphocytes % (auto) 14.4 %; Microcytosis Present; Monocytes # (auto) 0.38 K/uL (0.24-0.82); Monocytes % (auto) 7.7 %; Neutrophils # (auto) 3.67 K/uL (1.4-6.5); Neutrophils % (auto) 74.3 %; Polychromasia 1+; Schistocytes 1+; Target Cells 2+; Tear Drop Cells 1+
[2022-02-07] MEDS: INSULIN ASPART PER UNIT SC SCH ×4 (07:58→20:29)
[2022-02-07] MEDS: PROPRANOLOL HCL 10 MG TAB PO SCH ×3 (09:14→21:24)
[2022-02-07] MEDS: buPROPion SR 100 MG TABCR PO SCH (09:14)
[2022-02-07] MEDS: DULoxetine HCL 60 MG CAP PO SCH (09:15)
[2022-02-07] MEDS: dilTIAZem ER 180 MG CAPCR PO SCH (09:16)
[2022-02-07] MEDS: rifAXIMin 550 MG TABLET PO SCH ×3 (09:16→21:26)
[2022-02-07] MEDS: lisinopril 20 MG TAB PO SCH (09:16)
[2022-02-07] MEDS: GABAPENTIN 300 MG CAP PO SCH ×3 (09:17→21:21)
[2022-02-07] MEDS: LACTULOSE SYRUP 20 GM/30 ML UDC PO SCH ×2 (09:18→21:23)
[2022-02-07] MEDS: EPLERENONE 25 MG TABLET PO SCH (09:19)
[2022-02-07] MEDS: POTASSIUM CHLORIDE / WTR 10 MEQ/100 ML PLCT IV SCH ×4 (11:52→16:37)
[2022-02-07] MEDS: POTASSIUM CHLORIDE CRTAB 20 MEQ TABCR PO SCH ×2 (14:17→21:23)
[2022-02-07] MEDS ORDERED: cefTRIAXone SODIUM 2,000 MG in DEXTROSE 5% 50 ML IV SCH (16:00)
[2022-02-07] MEDS: LANTUS PER UNIT CHARGE SQ SCH (21:12)
[2022-02-07] MEDS: DUTASTERIDE 0.5 MG CAPSULE PO SCH (21:19)
[2022-02-07] MEDS: EZETIMIBE 10 MG TABLET PO SCH (21:21)
[2022-02-07] MEDS: ISOSORBIDE MONO EXTENDED REL 60 MG TABCR PO SCH (21:22)
[2022-02-07] MEDS: TAMSULOSIN HCL 0.4 MG CAP PO SCH (21:26)
[2022-02-07] MEDS: WARFARIN SOD 7.5 MG TAB PO SCH (21:27)
--- NOTE | 2022-02-07 21:34 | Hospitalist Progress Note ---
Date of Service February 07, 2022 Assessment & Plan (1) Elevated LFTs: Plan: Patient with acute elevated LFTS, Bili, ALKpo4, acute on chronic elevation with history of SWIFT Cirrhosis - DDX- infectious vs. GB disease vs. volume depletion vs. Liver failure - Patient is not encephalopathic, he is on Coumadin so INR is elevated, normal ammonia, small amount of ascites - Blood cultures obtained - Tylenol pending - CT abdomen with narrowed portal vein but "likely patent" and already anticoagulated- clot less likely - Without abdominal pain or epigastric pain- RUQUS for evaluation for cholecystitis- follow with MRCP am - Consult GI - Continue with Rocephin for now await cultures and other diagnostics - Normosol IV On 02/05, negative MRCP. negative CT scan. will advance diet. will monitor for symptoms. If blood work improves, may consider discharge if tolerates diet. On 02/06 Patient tolerating diet as above.willl continue to advance. If patient continues to do well, and LFTs normalize. Plan would be to discharge either on Tuesday once caregivers have been set up. On 02/07, Advanced diet to regular home diet, however low fat. continue IV antibiotics to complete uncomplicated UTI symptoms. (2) Acute vomiting: Plan: Acute following eating last evening precluded by GERD without stomach or abdominal pain - Without diarrhea associated - however CT scan interpreted as a nonspecific enteritis. - DDX: GERD/Gastritis/PUD vs. GBD vs. Food bourne/enteritis vs. pancreatitis - not sick so makes food bourne less likely - Protonix 40mg IV now and then BID - Clears as tolerated pending above studies - Follow culture data- if diarrhea ensues obtain stool PCR - Pancreatitis unlikely at this time as he is without abdominal pain or elevated lipase- however treat supportively as above. -as stated above, advanced diet. This appears to have resolved. 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 - With history of GRADE I varices - Continue Rifaximin, Lactulose - Lasix continue once volume repleted - Continue propranolol (5) Osteomyelitis of lumbar spine: Plan: ID consulted in 2019 for diskitis- since that time he has been on prophylactic doxycycline 100mg PO BID - Change to IV BID and continue until above pathology unveiled as well as tolerating PO (6) Chronic systolic CHF (congestive heart failure): Plan: Continue ANAIS as renal function is stable Continue Lasix once volume repleted Continue statin Trend HScTNI- mild elevation on check in EMD - likely type II demand as without ECG changes (7) Esophageal varices: Plan: Grade I on previous EGD - continue rifaximn and propranolol (8) Aldosteronism: Plan: Replete potassium give BP medications now - Continue with epleronone or equivalent - follow voluem status and electrolytes (9) BPH loc w urin obs/LUTS: Plan: Continue with Tamsulosin, Flomax - hold on Esteves catheter at this time as able to void - urine has lightened up in color following IVF (10) CAD (coronary artery disease): Plan: Continue as above Trend HScTNI (11) Hypercholesteremia: Plan: Continue Zetia (12) Essential (primary) hypertension: Plan: Continue Isosorbide Propranolol Diltiazem for his Afib/flutter Continue Lisinopril (13) Type 2 diabetes mellitus: Plan: Continue Lantus Aspart sliding scale without carb ratio until PO intake established - goal < 180 (14) Paroxysmal atrial flutter: Plan: Currently in NSR with PVCs - replete potassium Admission and Anticipated Discharge Date Admission Date: February 04, 2022 Subjective 71 yo male reports feeling well. He has no new complaints. Review of Systems Review of Systems: All systems reviewed & are unremarkable except as noted in HPI & below Physical Exam Physical Exam: General: awake, alert, Head: Normocephalic, atraumatic ENT: PERRL, EOMI, without icterus, no pharyngeal exudate, mucous membranes dry Neuro: AAO x 3, without encephalopathy, speech clear and appropriate, no nystagmus strength intact bilaterally 5/5, sensation intact and equal all extremities and dermatomes, no pronator drift Chest: equal rise and fall of the chest, no accessory muscle use, no heaves or thrills, Clear to auscultation, on room air, Cardiac: Regular rate and rhythm, telemetry reviewed-afib, skin warm dry, cap refill <3 seconds, peripheral pulses +2 no JVD, no murmur, +2 edema to feet and ankles GI: NABS x 4 quadrants, soft, nontender to palpation, no rebound, guarding or tenderness : Spontaneously voiding, no pain, no CVA tenderness, Psych: Normal mood and affect Skin: no rash or erythema Results & Data Results & Data ([facility]) Vital Signs (Past 12 Hours) Vital Signs Temp Pulse Pulse Resp BP BP Pulse Ox 02/07/22 19:22 36.7 C 60 18 126/74 97 02/07/22 15:12 36.5 C 60 20 124/77 98 02/07/22 14:36 57 L 02/07/22 11:12 36.6 C 66 19 154/72 H 97 O2 Del Method 02/07/22 19:22 Room Air 02/07/22 15:12 Room Air 02/07/22 14:36 02/07/22 11:12 Room Air PG Care Time/CCT Total # of Minutes Spent Total Time Spent with Patient: Total time spent is greater than 50% in coordination of care (as documented) at patient's floor/unit and/or counseling patient: Coding Level of Care Code 66778 Subseq Hosp Care Lvl 2 Diagnoses Elevated LFTs R79.89 Acute vomiting R11.10 Subtherapeutic international normalized ratio (INR) R79.1 Cirrhosis of liver not due to alcohol K74.60 Osteomyelitis of lumbar spine M46.26 Chronic systolic CHF (congestive heart failure) I50.22 Esophageal varices I85.00 Aldosteronism E26.9 BPH loc w urin obs/LUTS N40.1 CAD (coronary artery disease) I25.10 Hypercholesteremia E78.00 Essential (primary) hypertension I10 Type 2 diabetes mellitus E11.9 Paroxysmal atrial flutter I48.92 Time Spent (min) 25
[2022-02-07] MEDS ORDERED: FUROSEMIDE INJ 20 MG/2 ML VIAL IV ONE (22:03)
[2022-02-07] MEDS ORDERED: POTASSIUM CHLORIDE CRTAB 20 MEQ TABCR PO STA (22:20)
[2022-02-08 05:26] LABS: INR 2.6 (0.9-1.1); Prothrombin Time 26.6 Seconds (9.0-12.0)
[2022-02-08] MEDS: DOXYCYCLINE HYCLATE 100 MG in DEXTROSE 5% 100 ML IV SCH (06:14)
[2022-02-08 06:23] LABS: Albumin Globulin Ratio 0.8 (0.9-2); Albumin Level 2.3 gm/dl (3.4-5.0); BUN Creatinine Ratio 10.3 (10-20); Bilirubin,Total 0.8 mg/dl (0.2-1.0); Calcium 7.5 mg/dl (8.5-10.1); Creatinine Clr Calc Pharmacy 169.4 ml/min; Est GFR (African American) 120.6 ml/min; Globulin 2.9 gm/dl (2.5-4.0); Hematocrit (blood only) 27.1 % (40.1-51.0); Hemoglobin 8.4 g/dl (14.0-18.0); Mean Corpuscular Hemoglobin 19.7 pg (25.0-34.0); Mean Corpuscular Volume 63.6 fL (80.0-100.0); Nucleated RBC # (auto) 0.02 K/uL (0-0); Nucleated RBC % (auto) 0.5 %; Platelet Count 73 K/uL (130-400); Potassium 3.4 mmol/L (3.5-5.1); RDW Coefficient of Variation 24.2 % (11.5-14.5); RDW Standard Deviation 52.1 fL (36.4-46.3); Red Blood Count 4.26 M/uL (4.63-6.08); Total Protein 5.2 gm/dl (6.0-8.3); White Blood Count 3.96 K/ul (4.8-10.8)
[2022-02-08] MEDS: buPROPion SR 100 MG TABCR PO SCH (08:30)
[2022-02-08] MEDS: dilTIAZem ER 180 MG CAPCR PO SCH (08:30)
[2022-02-08] MEDS: lisinopril 20 MG TAB PO SCH (08:30)
[2022-02-08] MEDS: POTASSIUM CHLORIDE CRTAB 20 MEQ TABCR PO SCH (08:31)
[2022-02-08] MEDS: DULoxetine HCL 60 MG CAP PO SCH (08:31)
[2022-02-08] MEDS: rifAXIMin 550 MG TABLET PO SCH (08:31)
[2022-02-08] MEDS: PROPRANOLOL HCL 10 MG TAB PO SCH (08:32)
[2022-02-08] MEDS: GABAPENTIN 300 MG CAP PO SCH (08:32)
[2022-02-08] MEDS: EPLERENONE 25 MG TABLET PO SCH (08:33)
[2022-02-08] MEDS: INSULIN ASPART PER UNIT SC SCH ×2 (08:33→13:04)
[2022-02-08] MEDS: LACTULOSE SYRUP 20 GM/30 ML UDC PO SCH (10:40)
--- NOTE | 2022-02-10 09:09 | Discharge Summary ---
Date of Service February 08, 2022 Admission HPI Per Admitting Provider 71 YOM with medical history of: SWIFT Cirrhosis, DM II (on insulin), Obesity, back pain chronic, diskitis (on correction prophy therapy with BID Doxy), HTN, Aflutter/afib (on Warfarin), CAD, HTN, HLD, ALDO(on CPAP). Patient follows with [facility] Gastro/Hepatology. Patient comes to the EMD today for 1 day history of vomiting and heart burn. Patient states this started last night about 20 minutes after following dinner. He had stuffed shells that he shared with his , frozen dinner. Following this he had heartburn that then progressed to nausea and followed by vomiting. He endorses that he vomited 3-5 times last night and then 2 times this morning. He endorses mostly clear light brown tinged emesis, no blood and denies any dark brown or black coloring. He attempted to drink fluids this morning but came right back up. He reports feeling cold last night but without fever. He denies any other symptoms of body aches, abdominal pain, or diarrhea. His is not feeling ill and she ate the same food as he did. He also denies any epigastric pain or pain in the LUQ. In the EMD the patient had routine labs performed was given 1 liter of crystalloid infusion, and antiemetics. Following discussion blood cultures, ammonia level and imaging was requested. He was given 1GM Rocephin in EMD. Patient labs were notable for increase in his liver enzymes, elevated bilirubin, and ALKPO4, normal lipase. CT abdomen with mild infiltration around Pancrease head, cholelithiasis without evidence of cholecystitis. Patient will be admitted to PCU, IV hydration with Normosol, Protonix IV BID, obtain RUQUS, continue with ABX empiric for GI source and change his suppressive Doxy to IV for now until tolerating PO. COVID test on admission is: NEGATIVE Principal Diagnosis Cirrhosis from SWIFT Discharge Exam General: awake, alert, Head: Normocephalic, atraumatic ENT: PERRL, EOMI, without icterus, no pharyngeal exudate, mucous membranes dry Neuro: AAO x 3, without encephalopathy, speech clear and appropriate, no nystagmus strength intact bilaterally 5/5, sensation intact and equal all extremities and dermatomes, no pronator drift Chest: equal rise and fall of the chest, no accessory muscle use, no heaves or thrills, Clear to auscultation, on room air, Cardiac: Regular rate and rhythm, telemetry reviewed-afib, skin warm dry, cap refill <3 seconds, peripheral pulses +2 no JVD, no murmur, +2 edema to feet and ankles GI: NABS x 4 quadrants, soft, nontender to palpation, no rebound, guarding or tenderness : Spontaneously voiding, no pain, no CVA tenderness, Psych: Normal mood and affect Skin: no rash or erythema Discharge Data Allergies Allergy/AdvReac Type Severity Reaction Status Date / Time simvastatin AdvReac Intermediate GI UPSET- Verified 02/05/22 13:18 OK WITH LIPITOR pioglitazone AdvReac Mild GI UPSETS Verified 02/05/22 13:18 spironolactone AdvReac Mild NIPPLES Verified 02/05/22 13:18 HURT Consultations 02/04/22 16:39 ED Decision to Admit Stat 02/04/22 20:35 Consult Gastroenterology Routine 02/05/22 14:37 Consult General Surgery Routine Procedures Performed Operation Date: 02/05/22 10:20 Actual Procedures p Esophagogastroduodenoscopy - Mateusz Atkins DO s Ultrasound Anesthesia Sedation - Mateusz Atkins DO Ordered Studies 02/04/22 15:46 CT abd pelvis IV con only Stat 02/04/22 17:01 US gallbladder Stat 02/05/22 13:18 US upper EUS PACS images Routine Hospital Course (1) Elevated LFTs: Patient with acute elevated LFTS, Bili, ALKpo4, acute on chronic elevation with history of SWIFT Cirrhosis - DDX- infectious vs. GB disease vs. volume depletion vs. Liver failure - Patient is not encephalopathic, he is on Coumadin so INR is elevated, normal ammonia, small amount of ascites - Blood cultures obtained - Tylenol pending - CT abdomen with narrowed portal vein but "likely patent" and already anticoagulated- clot less likely - Without abdominal pain or epigastric pain- RUQUS for evaluation for cholecystitis- follow with MRCP am - Consult GI - Continue with Rocephin for now await cultures and other diagnostics - Normosol IV On 02/05, negative MRCP. negative CT scan. will advance diet. will monitor for symptoms. If blood work improves, may consider discharge if tolerates diet. On 02/06 Patient tolerating diet as above.willl continue to advance. If patient continues to do well, and LFTs normalize. Plan would be to discharge either on Tuesday once caregivers have been set up. On 02/07, Advanced diet to regular home diet, however low fat. continue IV antibiotics to complete uncomplicated UTI symptoms. On 02/08 Patient though remained elevated, are better than when he was admitted. Recommend close followup with PCP/ GI. (2) Acute vomiting: Acute following eating last evening precluded by GERD without stomach or abdominal pain - Without diarrhea associated - however CT scan interpreted as a nonspecific enteritis. - DDX: GERD/Gastritis/PUD vs. GBD vs. Food bourne/enteritis vs. pancreatitis - not sick so makes food bourne less likely - Protonix 40mg IV now and then BID - Clears as tolerated pending above studies - Follow culture data- if diarrhea ensues obtain stool PCR - Pancreatitis unlikely at this time as he is without abdominal pain or elevated lipase- however treat supportively as above. -as stated above, advanced diet. This appears to have resolved. (3) Subtherapeutic international normalized ratio (INR): On warfarin for Afib/flutter - Warfarin 7.5 mg daily EXCEPT on TUESDAY where he takes 5mg - continue at discharge. (4) Cirrhosis of liver not due to alcohol: Follows with [facility]- originally thought secondary to cancer, but further workup was determined to be SWIFT - With history of GRADE I varices - Continue Rifaximin, Lactulose - Lasix continue once volume repleted - Continue propranolol (5) Osteomyelitis of lumbar spine: ID consulted in 2019 for diskitis- since that time he has been on prophylactic doxycycline 100mg PO BID - Change to IV BID and continue until above pathology unveiled as well as tolerating PO (6) Chronic systolic CHF (congestive heart failure): Continue ANAIS as renal function is stable Continue Lasix once volume repleted Continue statin Trend HScTNI- mild elevation on check in EMD - likely type II demand as without ECG changes (7) Esophageal varices: Grade I on previous EGD - continue rifaximn and propranolol (8) Aldosteronism: Replete potassium give BP medications now - Continue with epleronone or equivalent - follow voluem status and electrolytes (9) BPH loc w urin obs/LUTS: Continue with Tamsulosin, Flomax - hold on Esteves catheter at this time as able to void - urine has lightened up in color following IVF (10) CAD (coronary artery disease): Continue as above Trend HScTNI (11) Hypercholesteremia: Continue Zetia (12) Essential (primary) hypertension: Continue Isosorbide Propranolol Diltiazem for his Afib/flutter Continue Lisinopril (13) Type 2 diabetes mellitus: Continue Lantus Aspart sliding scale without carb ratio until PO intake established - goal < 180 (14) Paroxysmal atrial flutter: Currently in NSR with PVCs - replete potassium Total Time Total Time Spent Total Time Spent (In Minutes): 35 Discharge Plan Discharge Items Patient Disposition: Home - Home Health Services Reason For Visit: CIRRHOSIS, VOMITTING, GB VS. INFECTIOUS CAUSE Discharge Diagnosis: cirrhosis Activity: Resume your previous activity Non-emergency contact: Primary Care Provider Call non-emergency contact if: you have any medication questions Follow-up/Referrals: Wayne Florez, [Primary Care Provider] - Diet: Low Fat and Low Sodium (2gm) Addtl Attending Provider Instructions: You came in with Nausea and vomiting and an increase of your liver function tests. Thankfully your symptoms subsided while you were here. You have an upper endoscopy which showed varices but there was no signs of bleeding. We also checked your gallbladder which did show evidence of stones, but no signs of inflammation or any sort of blockage of your gallbladder or biliary ducts. You also completed treatment for a UTI. The surgeon however, recommends that if this becomes an issues in the future, that you would likely need surgery in a tertiary center and not here at [facility]. Your goal with the lactulose is to have 2-3 bowel movements per day. If you reached that goal before your afternoon dose, then may skip his PM dose. In regards to followup, recommend 1 month followup with GI at [facility]. And 1 week followup with PCP for retesting values of his liver function tests. Sooner followup if your symptoms return. It was a pleasure taking care of you Mr. Herring. Best regards, Rashawn Wood MD Pending Studies at Discharge: No Stand-Alone Forms: My [facility] [employer], Smoking Cessation Medications and DC Order Prescriptions: Continued diclofenac sodium 1 % gel 4 g TOP QID Qty: 100 1RF Rx Instructions: apply to single knee, ankle, foot; for foot includes sole/toes/top of foot isosorbide mononitrate 120 mg tablet extended release 24 hr 120 mg PO QPM Qty: 90 1RF Lantus Solostar U-100 Insulin 100 unit/mL (3 mL) insulin pen 8 unit subcut HS 90 Days Qty: 7.2 1RF ezetimibe 10 mg tablet 10 mg PO QPM 90 Days Qty: 90 1RF nitroglycerin 0.6 mg tablet, sublingual 0.6 mg Sublingual DIRECTED PRN (Reason: Chest Pain) Qty: 25 1RF duloxetine 60 mg capsule,delayed release(DR/EC) 60 mg PO QAM Qty: 90 1RF eplerenone 25 mg tablet 25 mg PO QAM 90 Days Qty: 90 1RF Rx Instructions: pantoprazole 40 mg tablet,delayed release (DR/EC) 40 mg PO BID Qty: 180 1RF bupropion HCl [Wellbutrin SR] 100 mg tablet sustained-release 12 hr 100 mg PO QAM Qty: 90 1RF dutasteride [Avodart] 0.5 mg capsule 0.5 mg PO HS Qty: 90 1RF furosemide 40 mg tablet 80 mg PO QAM Qty: 180 1RF doxycycline monohydrate 100 mg capsule 100 mg PO BIDM Qty: 180 1RF diltiazem HCl 180 mg capsule,extended release 24 hr 180 mg PO QAM Qty: 90 1RF gabapentin 300 mg capsule 300 mg PO TID Qty: 270 3RF omega-3 acid ethyl esters 1 gram capsule 1 cap PO BID Qty: 180 1RF propranolol 10 mg tablet 10 mg PO TID Qty: 270 1RF warfarin 5 mg tablet 5 mg PO DAILY Qty: 90 1RF Protocol: Dose Management Condition: Tuesday (Week One) Dose/Route: 7.5 mg Instruction: 1 x 7.5 mg tablet Condition: Tuesday Dose/Route: 7.5 mg Instruction: 1 x 7.5 mg tablet Condition: Tuesday Dose/Route: 7.5 mg Instruction: 1 x 7.5 mg tablet Condition: Tuesday Dose/Route: 10 mg Instruction: 2 x 5 mg tablets Condition: Dose/Route: 10 mg Instruction: 2 x 5 mg tablets Condition: Tuesday Dose/Route: 5 mg Instruction: 1 x 5 mg tablet Condition: Tuesday Dose/Route: 7.5 mg Instruction: 1 x 7.5 mg tablet Condition: Tuesday ( Two) Dose/Route: 7.5 mg Instruction: 1 x 7.5 mg tablet Condition: Tuesday Dose/Route: 7.5 mg Instruction: 1 x 7.5 mg tablet Condition: Tuesday Dose/Route: 7.5 mg Instruction: 1 x 7.5 mg tablet Condition: Tuesday Dose/Route: 7.5 mg Instruction: 1 x 7.5 mg tablet Condition: Dose/Route: 7.5 mg Instruction: 1 x 7.5 mg tablet Condition: Tuesday Dose/Route: 5 mg Instruction: 1 x 5 mg tablet Condition: Tuesday Dose/Route: 7.5 mg Instruction: 1 x 7.5 mg tablet Protocol Text: Adjustment Start Date: Tuesday10/28/21 INR Value: 1.5 INR Date: 10/27/21 Recheck Date: 11/11/21 Rx Instructions: 5 mg daily warfarin 7.5 mg tablet 7.5 mg PO [id number] Qty: 90 1RF Protocol: Dose Management Condition: Tuesday (Week One) Dose/Route: 7.5 mg Instruction: 1 x 7.5 mg tablet Condition: Tuesday Dose/Route: 7.5 mg Instruction: 1 x 7.5 mg tablet Condition: Tuesday Dose/Route: 7.5 mg Instruction: 1 x 7.5 mg tablet Condition: Tuesday Dose/Route: 10 mg Instruction: 2 x 5 mg tablets Condition: Dose/Route: 10 mg Instruction: 2 x 5 mg tablets Condition: Tuesday Dose/Route: 5 mg Instruction: 1 x 5 mg tablet Condition: Tuesday Dose/Route: 7.5 mg Instruction: 1 x 7.5 mg tablet Condition: Tuesday ( Two) Dose/Route: 7.5 mg Instruction: 1 x 7.5 mg tablet Condition: Tuesday Dose/Route: 7.5 mg Instruction: 1 x 7.5 mg tablet Condition: Tuesday Dose/Route: 7.5 mg Instruction: 1 x 7.5 mg tablet Condition: Tuesday Dose/Route: 7.5 mg Instruction: 1 x 7.5 mg tablet Condition: Dose/Route: 7.5 mg Instruction: 1 x 7.5 mg tablet Condition: Tuesday Dose/Route: 5 mg Instruction: 1 x 5 mg tablet Condition: Tuesday Dose/Route: 7.5 mg Instruction: 1 x 7.5 mg tablet Protocol Text: Adjustment Start Date: Tuesday10/28/21 INR Value: 1.5 INR Date: 10/27/21 Recheck Date: 11/11/21 Rx Instructions: Takes at HS Xifaxan 550 mg tablet 550 mg PO TID Qty: 270 1RF tamsulosin 0.4 mg capsule 0.4 mg PO HS 90 Days Qty: 90 3RF multivitamin tablet 1 tab PO QAM lactulose 20 gram/30 mL Solution 45 ml PO BID 30 Days Qty: 2700 2RF zinc 50 mg tablet 50 mg PO DAILY Qty: 30 0RF lisinopril 40 mg tablet 20 mg PO DAILY Discharge Orders: Discharge Order (Routine); Ordered 02/08/22 Ordered By: Rashawn Wood Admission Data Admit Date/Time: 02/04/22 16:50 Attending Provider: Rashawn Wood Admit Provider: Rashawn Wood Primary Care Provider: Wayne Florez. Other Providers: [employer] ; Rashawn Wood ; Bhumi Callejas ; Alex Lange. Other Interventions: Discharge Summary Assessment (RN) Last Done: 02/08/22 13:37 Coding Level of Care Code D/C DAY MANAGEMENT >30 MINS Diagnoses Elevated LFTs R79.89 Acute vomiting R11.10 Subtherapeutic international normalized ratio (INR) R79.1 Cirrhosis of liver not due to alcohol K74.60 Osteomyelitis of lumbar spine M46.26 Chronic systolic CHF (congestive heart failure) I50.22 Esophageal varices I85.00 Aldosteronism E26.9 BPH loc w urin obs/LUTS N40.1 CAD (coronary artery disease) I25.10 Hypercholesteremia E78.00 Essential (primary) hypertension I10 Type 2 diabetes mellitus E11.9 Paroxysmal atrial flutter I48.92
== END 2022-02-08 15:41 | disposition home health service (06) | DRG 433 ==
LOC: ED 11:59 → 4W 16:50

== ENCOUNTER 2022-03-03 15:31 | Inpatient (IN) ==
--- NOTE | 2022-03-03 15:50 | ED Triage Note ---
Date of Service March 03, 2022 History of Present Illness This patient was briefly evaluated while in triage. An abbreviated physical exam was performed. This patient is a 71-year-old Male with past medical history of CKD, diabetes, on warfarin, who presents to the ED for evaluation of frequent falls. Was admitted recently for similar. Has some wounds to the left foot from recent falls. Physical Exam CONSTITUTIONAL: Tired and mildly ill-appearing SKIN: Bandages to left foot CARDIAC: Regular rate and rhythm, no murmurs rubs or gallops PULMONARY: Lungs clear to auscultation Initial orders for labs and / or imaging were placed and patient was placed in the waiting area until a bed is available. Please see further documentation for the full ED course. MDM / Impression Impression Impression: Recurrent falls, Generalized weakness, Hypomagnesemia, Suprapatellar effusion of knee
--- NOTE | 2022-03-03 16:29 | XRay Report ---
XR chest 1V portable CLINICAL HISTORY: Frequent falls, weakness TECHNIQUE: Single frontal radiograph of the chest was obtained. Comparison: Comparison is made to chest radiograph 12/28/2021 FINDINGS: Median sternotomy wires are unchanged. Fractured superior wires again noted. Cardiomegaly is noted. T he lungs are clear. No evidence of pleural effusion or pneumothorax. IMPRESSION: No acute chest disease. ACT 112: Negative or not required by law. Electronically signed by: Sebastian Bower M.D. 03/03/2022 4:28 PM
[2022-03-03 17:08] LABS: INR 1.4 (0.9-1.1); Prothrombin Time 15.1 Seconds (9.0-12.0)
[2022-03-03 17:20] LABS: Alanine Aminotransferase 39 U/L (7-52); Albumin Globulin Ratio 0.7 (0.9-2); Albumin Level 2.6 gm/dl (3.4-5.0); Alkaline Phosphatase 275 U/L (34-104); Anion Gap 4 (3-11); Aspartate Aminotransferase 58 U/L (13-39); BUN Creatinine Ratio 10.5 (10-20); Bilirubin,Total 1.1 mg/dl (0.2-1.0); Blood Urea Nitrogen 8 mg/dl (6-23); Calcium 8.3 mg/dl (8.5-10.1); Carbon Dioxide 30 mmol/L (21-32); Chloride 107 mmol/L (98-107); Est GFR (African American) 107.9 ml/min; Est GFR (Non-African American) 93.1 ml/min; Globulin 3.7 gm/dl (2.5-4.0); Glucose 76 mg/dl (70-99(Fasting)); Magnesium 1.6 mg/dl (1.7-2.4); Potassium 3.2 mmol/L (3.5-5.1); Sodium 141 mmol/L (136-145); Total Protein 6.3 gm/dl (6.0-8.3)
[2022-03-03 17:28] LABS: Hematocrit (blood only) 30.7 % (40.1-51.0); Hemoglobin 9.7 g/dl (14.0-18.0); Mean Corpuscular Hemoglobin 20.1 pg (25.0-34.0); Mean Corpuscular Hgb Conc 31.6 g/dL (32.0-36.0); Mean Corpuscular Volume 63.6 fL (80.0-100.0); RDW Coefficient of Variation 25.3 % (11.5-14.5); RDW Standard Deviation 54.7 fL (36.4-46.3); Red Blood Count 4.83 M/uL (4.63-6.08); White Blood Count 4.58 K/ul (4.8-10.8)
[2022-03-03] MEDS ORDERED: MAGNESIUM SULFATE / D5W 1 GM/100 ML BAG IV STA (17:59)
--- NOTE | 2022-03-03 18:56 | History & Physical Report ---
Date of Service March 03, 2022 Assessment & Plan (1) Falls: Plan: -Admit to med/surge -Patient is currently afebrile, hemodynamically stable, and stable on room air -Has been having multiple mechanical falls since last admission, of which, PT/OT had recommended acute rehab stay but patient chose home PT/OT -Patient sustained lacerations to the left knee and foot also with right knee pain/swelling >Will get wound nurse consult for left foot/knee and will get xray of the right knee to rule out acute trauma -PT/OT consults placed, patient and are agreeable to inpatient rehab is requesting [facility] if possible for rehab + medical care (2) Subtherapeutic international normalized ratio (INR): Plan: -INR noted to be 1.4 today, patient did not take his Warfarin today -Also eating green-leafy vegetables consistently which could be contributing -Normally takes Warfarin at 7.5 mg daily except for Fridays when he takes 5 mg >Will give him 10 mg tonight and then resume regular dosing. Check INR daily -Patient should be encouraged to eat a consistent amount of green leafy vegetables to assist with stable INR -If he is not therapeutic by tomorrow consider bridging with lovenox (3) Hypomagnesemia: Plan: -Noted to be 1.6 today, liekly from poor oral intake and diuretic use -Given 1g IV in the ED, continue to monitor for now (4) Hypokalemia: Plan: -Noted to be 3.2 today -Likely from diuretic use and low mag -Giving 30 meq PO x 2 doses and continue to monitor with AM labs (5) Hypophosphatemia: Plan: -Noted to be 2.3 today, likely from poor oral intake -Starting POT Phosphate Monobasic with sodium, 1 tab PO QID for now -Continue to monitor electrolytes daily (6) Dysuria: Plan: -Patient states he has had some recent dysuria, was treated for uncomplicated UTI last admission -Is afebrile and no leukocytosis -Will obtain UA with reflex culture if need, hold antibiotics for now (7) Hyperlipidemia: Plan: -[facility] Zetia (8) Infection of lumbar spine: Plan: -Continue BID Doxycycline 100 mg PO for chronic suppression (9) Chronic systolic CHF (congestive heart failure): Plan: -Continue [facility] lasix, Imdur, and eplerenone ([facility] [place] med order placed) (10) Depression: Plan: -Continue [facility] Bupropion (11) PAF (paroxysmal atrial fibrillation): Plan: -Continue [facility] diltiazem (12) Type 2 diabetes mellitus: Plan: -Will start with Glargine 20 units BID -Correction factor of 20 and carb ration of 8 -Accu checks ACHS (13) Nocturnal hypoxemia: Plan: -Patient hasn't been using at home Cpap due to losing a piece -Will order HS Cpap while admitted -Maybe CM can assist with getting him a new machine prior to discharge? (14) Aldosteronism: Plan: -Continue [facility] Eplerenone -Patient may use home medications (15) 1st degree AV block: Plan: -WY interval increased at 232, patient asymptomatic and not on beta blockers -Will continue Diltiazem for now as he has a history PAF to prevent RVR Plan The patient was discussed with Dr. 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 Of note, the patient was recently admitted to [facility] from 02/05/22 to 02/10/22 for nausea, vomiting and elevated LFTS. Per the discharge summary, the patient underwent MRCP and CT of the abdomen and pelvis which were negative. His LFTs were trended and continued to improve throughout his admission. His nausea and vomiting was resolved with PPI and switching to a low fat diet. In the ED the patient was found to be afebrile, hemodynamically stable, and stable on room air. Labs were significant for chronic anemia, potassium of 3.2, mag of 1.6, phos of 2.3, calcium of 8.3, improving AST and ALT compared to previous admission, alk phos of 275 (increased from 224 las admission), and total bili of 1.1 (increased from 0.8 last admission), and INR of 1.4. Chest xray was negative for acute findings. In the ED the patient was given 1g IV mag prior to admission. At the time of the exam the patient was lying comfortably in bed in no acute distress with his sitting bedside. They state that since his discharge his abdominal discomfort, nausea, and vomiting have resolved. However, the patient has experienced approximately 4 falls since being home. He states that he uses a walker or can to normally ambulate. Since being home he has been falling because his right leg has been giving out on him. He denies losing consciousness and hitting his head. From the falls he has experienced lacerations to his left foot and knee, as-well-as right knee pain. He and his deny any seizure like activity before or after his falls. Home Pt/OT have been coming in to work with him but it does not seem to be helping much. I spoke to he and his about the possibility of going to inpatient rehab to improve his strength and they are both in agreement now that he has been falling. When asked about his current diet he states that he has been eating mostly fish, chicken, broccoli, and spinach; I spoke to him about the importance of limiting the amount of green- leafy vegetables while on Wafarin and he acknowledged the importance. Allergies Allergy/AdvReac Type Severity Reaction Status Date / Time simvastatin AdvReac Intermediate GI UPSET- Verified 02/23/22 15:00 OK WITH LIPITOR pioglitazone AdvReac Mild GI UPSETS Verified 02/23/22 15:00 spironolactone AdvReac Mild NIPPLES Verified 02/23/22 15:00 HURT Home Medications Medication Instructions Recorded Confirmed Type multivitamin 1 tab PO QAM 01/23/19 03/03/22 History lactulose 20 gram/30 mL oral 45 ml PO BID 30 days #2,700 mL 03/15/21 03/03/22 Rx solution isosorbide mononitrate 120 mg 120 mg PO QPM #90 tabs 03/16/21 03/03/22 Rx tablet,extended release 24 hr insulin glargine 100 unit/mL (3 8 unit (0.08 mL) subcut HS 90 days 07/02/21 03/03/22 Rx mL) subcutaneous pen (Lantus #7.2 mL Solostar U-100 Insulin) ezetimibe 10 mg tablet 10 mg PO QPM 90 days #90 tabs 07/06/21 03/03/22 Rx nitroglycerin 0.6 mg sublingual 0.6 mg sublingual DIRECTED PRN 07/07/21 03/03/22 Rx tablet Chest Pain #25 tabs duloxetine 60 mg capsule,delayed 60 mg PO QAM #90 caps 09/03/21 03/03/22 Rx release eplerenone 25 mg tablet 25 mg PO QAM 90 days #90 tabs 09/03/21 03/03/22 Rx pantoprazole 40 mg tablet,delayed 40 mg PO BID #180 tabs 09/03/21 03/03/22 Rx release bupropion HCl 100 mg tablet,12 hr 100 mg PO QAM #90 ea 10/23/21 03/03/22 Rx sustained-release (Wellbutrin SR) dutasteride 0.5 mg capsule 0.5 mg PO HS #90 caps 11/03/21 03/03/22 Rx (Avodart) tamsulosin 0.4 mg capsule 0.4 mg PO HS 90 days #90 caps 11/03/21 03/03/22 Rx zinc 50 mg tablet 50 mg PO DAILY #30 tabs 11/17/21 03/03/22 Rx diltiazem HCl 180 mg capsule,24 180 mg PO QAM #90 caps 01/07/22 03/03/22 Rx hr,extended release doxycycline monohydrate 100 mg 100 mg PO BIDM #180 caps 01/07/22 03/03/22 Rx capsule furosemide 40 mg tablet 80 mg PO QAM #180 tabs 01/07/22 03/03/22 Rx gabapentin 300 mg capsule 300 mg PO TID #270 caps 01/07/22 03/03/22 Rx omega-3 acid ethyl esters 1 gram 1 cap PO BID #180 caps 01/07/22 03/03/22 Rx capsule propranolol 10 mg tablet 10 mg PO TID #270 tabs 01/07/22 03/03/22 Rx warfarin 7.5 mg tablet 7.5 mg PO 6XWK #90 tabs 01/07/22 03/03/22 Rx rifaximin 550 mg tablet (Xifaxan) 550 mg PO TID #270 tabs 01/28/22 03/03/22 Rx lisinopril 40 mg tablet 20 mg PO DAILY 08/25/22 09/21/22 History vitamin B complex 1 cap PO DAILY 02/23/22 03/03/22 History diclofenac sodium 1 % topical gel 4 g topical QID PRN Pain 03/03/22 03/03/22 History warfarin 5 mg tablet 5 mg PO .QFRI 03/03/22 03/03/22 History Past Med/Surg History Medical History (Updated 03/03/22 @ 21:19 by Ileana Benz DO) Acute confusion Ambulatory dysfunction Anemia Anxiety and depression CAD (coronary artery disease) Cauda equina compression Chronic systolic CHF (congestive heart failure) Cirrhosis of liver not due to alcohol Cyst of kidney, acquired Depression Enlarged prostate Esophageal varices Essential tremor Expressive aphasia GERD (gastroesophageal reflux disease) Gout Hepatic hemangioma Hx of myocardial infarction 1994 Hyperlipidemia Hypertension Internal hemorrhoids Liver failure NOT CANDIDATE FOR LIVER TRANSPLANT - retirement (current) use of anticoagulants warfarin daily Mass of petrous temporal bone Medical marijuana use Morbid obesity BMI 43 Opioid dependence Osteomyelitis of lumbar spine PAF (paroxysmal atrial fibrillation) Pancytopenia Pigmented nevus Pulmonary nodule Seborrheic keratosis Sleep apnea USES CPAP Thyroid nodule Tubular adenoma of colon Type 2 diabetes mellitus Urinary tract infection Vitamin D deficiency Wide-complex tachycardia Surgical History History of back surgery X3 - 2 FOR FUSION AND LAST TO CLEAN UP INFECTION History of cardiac cath X4 - [facility] [place] - LAST ONE 02/2011 ? [facility] OR [place] History of coronary artery bypass graft x 3 X2 - 1993 AND 2010 - [place] History of esophagogastroduodenoscopy (EGD) (~05/29/19) History of heart surgery atrial septal deficit repair @ [facility] [place] 1993 at same time as CABG History of right knee surgery X4 to repair broken patella Hx of colonoscopy Hx of vasectomy Family History Mother Stroke Father Stroke Aunt Cancer Other No family history of adverse response to anesthesia No significant family history Denies family history of Colon cancer Ovarian cancer Prostate cancer Myocardial infarction Breast cancer Social History Smoking Status: Former smoker Tobacco Type: Cigarettes Age Quit Using Tobacco: 60; Second Hand Exposure: No; Hx Alcohol Use: No Hx Substance Use: No Preferred Language: Wallisian Communication Ability: Effective Visual Impairment: No Limitations Hearing Ability: Normal Political Anthropologist Required: No Beliefs That Will Affect Care: None marital status: Current Living Situation: Spouse current occupational status: retired Feels Safe at Home: Yes Childhood Exposure to Second-Hand Smoke: Yes Dental Care, Regularly: Yes Physical Activity Frequency: 3-4 Times per Week Seatbelt Use: always Sunscreen Use: Yes Assistive Devices: Cane and Walker Review of Systems Review of Systems: Denies current fever, chills, headache, changes in vision, hearing, taste, and smell, chest pain, SOB, cough, abdominal pain, nausea, vomiting, diarrhea, hematemesis, melena, dysuria, hematuria. All systems have been reviewed and are otherwise negative. Physical Exam Physical Exam: Physical Exam: General: In no acute distress, stated age, morbidly obese, poor hygiene HEENT: Normocephalic, atraumatic, no scleral icterus, pupils around round, symmetrical, and reactive to light, moist mucus membranes, trachea midline, no thyromegaly Chest/Pulm: No respiratory distress, symmetrical chest expansion, clear breath sounds throughout Cardiac: RRR, no murmurs noted Abdomen: Negative for ascites and bruising, normoactive bowel sounds, soft, non-tender to palpation throughout Musculoskeletal: Patient without trauma or ROM limitation in the BL upper extremities, right knee with swelling but intact ROM, left knee with non- bleeding skin tear, left foot with multiple small lacerations to the great toe and in between multiple other toes which are currently draining clear liquid Extremities: Radial, dorsalis pedis, and posterior tibial pulses are intact and symmetrical, +3-4 pitting edema in the BL lower extremities Skin: warm, dry, see above for acute trauma Neuro: Alert and oriented to person, place, month, year, and president, no focal defects, CN II-XII tested and intact, finger to nose test negative, no tremors noted Psych: No acute distress, calm and cooperative during the exam Results & Data Results & Data ([facility]) Vital Signs (Past 12 Hours) Vital Signs Temp Pulse Pulse Resp BP BP Pulse Ox 03/03/22 18:12 03/03/22 18:12 59 L 22 150/100 H 100 03/03/22 15:39 36.7 C 57 L 18 155/84 H 98 O2 Del Method 03/03/22 18:12 Room Air 03/03/22 18:12 Room Air 03/03/22 15:39 Room Air Laboratory Results Abnormal lab results 03/03/22 03/03/22 03/03/22 Range/Units 16:33 16:33 16:33 WBC 4.58 L (4.8-10.8) K/ul Hgb 9.7 L (14.0-18.0) g/dl Hct 30.7 L (40.1-51.0) % MCV 63.6 L (80.0-100.0) fL MCH 20.1 L (25.0-34.0) pg MCHC 31.6 L (32.0-36.0) g/dL RDW Std Deviation 54.7 H (36.4-46.3) fL RDW Coeff of Jt 25.3 H (11.5-14.5) % Lymphocytes # (Manual) 0.78 L (1.2-3.4) K/uL PT 15.1 H (9.0-12.0) Seconds INR 1.4 H (0.9-1.1) Potassium 3.2 L (3.5-5.1) mmol/L Calcium 8.3 L (8.5-10.1) mg/dl Phosphorus (2.5-4.9) mg/dl Magnesium 1.6 L (1.7-2.4) mg/dl Total Bilirubin 1.1 H (0.2-1.0) mg/dl AST 58 H (13-39) U/L Alkaline Phosphatase 275 H (34-104) U/L Albumin 2.6 L (3.4-5.0) gm/dl Albumin/Globulin Ratio 0.7 L (0.9-2) 03/03/22 Range/Units 16:33 WBC (4.8-10.8) K/ul Hgb (14.0-18.0) g/dl Hct (40.1-51.0) % MCV (80.0-100.0) fL MCH (25.0-34.0) pg MCHC (32.0-36.0) g/dL RDW Std Deviation (36.4-46.3) fL RDW Coeff of Jt (11.5-14.5) % Lymphocytes # (Manual) (1.2-3.4) K/uL PT (9.0-12.0) Seconds INR (0.9-1.1) Potassium (3.5-5.1) mmol/L Calcium (8.5-10.1) mg/dl Phosphorus 2.3 L (2.5-4.9) mg/dl Magnesium (1.7-2.4) mg/dl Total Bilirubin (0.2-1.0) mg/dl AST (13-39) U/L Alkaline Phosphatase (34-104) U/L Albumin (3.4-5.0) gm/dl Albumin/Globulin Ratio (0.9-2) Diagnostic Findings Chest X-Ray 03/03/22 15:43 XR chest 1V portable CLINICAL HISTORY: Frequent falls, weakness TECHNIQUE: Single frontal radiograph of the chest was obtained. Comparison: Comparison is made to chest radiograph 12/28/2021 FINDINGS: Median sternotomy wires are unchanged. Fractured superior wires again noted. Cardiomegaly is noted. The lungs are clear. No evidence of pleural effusion or pneumothorax. IMPRESSION: No acute chest disease. ACT 112: Negative or not required by law. Electronically signed by: Sebastian Bower M.D. 03/03/2022 4:28 PM ECG Additional Comments: Poor data quality, interpretation may be adversely affected Sinus bradycardia with sinus arrhythmia with 1st degree A-V block Otherwise normal ECG When compared with ECG of 04-FEB-2022 12:03, Premature ventricular complexes are no longer Present WY interval has increased Code Status & VTE Plan Code Status Full code VTE Prophylaxis Plan VTE Prophylaxis will be ordered: Yes Supervising Physician Co-Signing Physician Notes Patient seen and examined, chart reviewed, case discussed with LUZ ELENA West and I agree with the assessment and plan as above. In brief, patient is a 71yo male with multiple problems, recent hospitalization from 02/04 - 02/10/22 with abnormal LFTs. Patient has had some functional decline since returning home. He has had several falls secondary to his right knee giving out. No LOC, Syncope or head trauma. No additional complaints at this time. On exam patient is chronically ill in appearance, NAD Skin - small abrasion on left knee and left foot HEENT -MMM, Neck supple Heart - +S1/S2, regular Lungs - CTA Abd - +BS, soft, NT/ND Ext - 2+ pitting edema of bilateral LE with swelling and tenderness of right knee Labs and images reviewed. Significant for stable leukopenia and anemia INR subtherapeutic at 1.4 Electrolyte abnormalities to include K=3.2, Mg=1.6, PO4=2.3 X-ray of right knee with large suprapatellar effusion. Assessment/Plan -PT/OT evaluation, placement requested -Will check CT of right knee - possible Ortho consultation -Coumadin 10mg dose tonight then resume daily dosing per usual. Monitor INR -Electrolyte repletion -Remainder as above PG Care Time/CCT Total # of Minutes Spent Total Time Spent with Patient: Total time spent is greater than 50% in coordination of care (as documented) at patient's floor/unit and/or counseling patient: Coding Level of Care Code Established Pt INT OBSERVATION CARE 72M LVL 3 Patient Type Established Medical Decision Making High Complexity Diagnoses Falls W19.XXXA Subtherapeutic international normalized ratio (INR) R79.1 Hypomagnesemia E83.42 Hypokalemia E87.6 Hypophosphatemia E83.39 Dysuria R30.0 Hyperlipidemia E78.5 Infection of lumbar spine M86.9 Chronic systolic CHF (congestive heart failure) I50.22 Depression F32.9 PAF (paroxysmal atrial fibrillation) I48.0 Type 2 diabetes mellitus E11.9 Nocturnal hypoxemia G47.34 Aldosteronism E26.9 1st degree AV block I44.0
[2022-03-03 19:36] LABS: ALC (manual) 1.51 K/uL (1.2-3.4); ANC (manual) 2.38 K/uL (1.4-6.5); Basophils # (manual) 0.05 K/uL (0-0.2); Basophils % (manual) 1 %; Eosinophils # (manual) 0.14 K/uL (0-0.50); Eosinophils % (manual) 3 %; Hypochromasia Present; Large Granular Lymph # (manua 0.73 K/uL; Large Granular Lymph % (manual) 16 %; Lymphocytes # (manual) 0.78 K/uL (1.2-3.4); Lymphocytes % (manual) 17 %; Microcytosis Present; Monocytes # (manual) 0.55 K/uL (0.24-0.82); Monocytes % (manual) 12 %; Neutrophils # (manual) 2.38 K/uL (1.4-6.5); Neutrophils % (manual) 52 %; Platelet Count 179 K/uL (130-400); Polychromasia 1+; Target Cells 2+
--- NOTE | 2022-03-03 20:57 | XRay Report ---
XR knee RT 3V CLINICAL HISTORY: fall with right nee pain/swelling TECHNIQUE: 3 views of the right knee were obtained. Comparison: Comparison is made to right knee radiograph 11/13/[address] 11/13/2021 FINDINGS: Again noted are severe degenerative changes in the knee. There is a large suprapatellar effusion. Aga in noted are severe degenerative changes of the knee joint with mild fragmentation of the patella. Th e bones are osteopenic. Within these limitations, no definite acute fracture is seen. Soft tissue swe lling is seen. IMPRESSION: Interval development of large suprapatellar effusion. Evaluation for acute fracture is limited by sev ere degenerative changes and fragmentation, however there is no definite acute fracture. If there is clinical concern, CT can be performed. ACT 112: Negative or not required by law. Electronically signed by: Sebastian Bower M.D. 03/03/2022 8:55 PM
[2022-03-03] MEDS ORDERED: NON-FORMULARY MEDICATION PO SCH (21:15)
[2022-03-03] MEDS ORDERED: WARFARIN SOD 2.5 MG TAB PO ONE (21:15)
[2022-03-03] MEDS ORDERED: ACETAMINOPHEN 325 MG TAB PO PRN (21:15)
[2022-03-03] MEDS ORDERED: GLUCOSE 40% GEL 15 GM TUBE PO PRN (21:15)
[2022-03-03] MEDS ORDERED: DEXTROSE 50% 50 ML SYRINGE IV PRN (21:15)
[2022-03-03] MEDS ORDERED: GLUCOSE 10 TAB/TUBE PO PRN (21:15)
[2022-03-03] MEDS ORDERED: GLUCAGON FOR INJ 1 MG VIAL SQ PRN (21:15)
[2022-03-03] MEDS ORDERED: EPLERENONE~ORDER AWAITING ACTION SCH (21:45)
[2022-03-03] MEDS ORDERED: AVODART~ORDER AWAITING ACTION SCH (21:45)
[2022-03-03] MEDS: OMEGA-3 (PURIFIED FISH OIL) 1 GM CAP PO SCH (22:14)
[2022-03-03] MEDS: DOXYCYCLINE HYCLATE 100 MG CAP PO SCH (22:14)
[2022-03-03] MEDS: rifAXIMin 550 MG TABLET PO SCH (22:15)
[2022-03-03] MEDS: dilTIAZem ER 180 MG CAPCR PO SCH (22:15)
[2022-03-03] MEDS: lisinopril 20 MG TAB PO SCH (22:15)
[2022-03-03] MEDS: WARFARIN SOD 7.5 MG TAB PO SCH (22:16)
[2022-03-03] MEDS: POT PHOSPHATE MONOBASIC W/ SOD TAB PO SCH (22:18)
[2022-03-03] MEDS: PANTOprazole 40 MG TAB PO SCH (22:18)
[2022-03-03] MEDS: TAMSULOSIN HCL 0.4 MG CAP PO SCH (22:18)
[2022-03-03] MEDS: PROPRANOLOL HCL 10 MG TAB PO SCH (22:18)
[2022-03-03] MEDS: ISOSORBIDE MONO EXTENDED REL 60 MG TABCR PO SCH (22:19)
[2022-03-03] MEDS: GABAPENTIN 300 MG CAP PO SCH (22:19)
[2022-03-03] MEDS: DULoxetine HCL 60 MG CAP PO SCH (22:20)
[2022-03-03] MEDS: EZETIMIBE 10 MG TABLET PO SCH (22:20)
[2022-03-03] MEDS: FUROSEMIDE 80 MG TAB PO SCH (22:20)
[2022-03-03] MEDS: DUTASTERIDE PO SCH (22:21)
[2022-03-03] MEDS: LACTULOSE SYRUP 30 GM/45 ML UDP PO SCH (22:22)
[2022-03-03 22:23] LABS: Appearance Urine Clear (Clear); Bacteria Urine Automated Negative (Negative); Bilirubin Urine Negative (Negative); Blood Urine Negative (Negative); Cast Urine Automated 0 /lpf (0-5); Color Urine Yellow; Glucose Urine UA Negative (Negative); Ketones Urine Negative (Negative); Leukocyte Esterase Urine 1+ (Negative); Nitrite Urine Negative (Negative); Protein Urine Negative (Negative); RBC Urine Automated 0-4 /hpf (0-4); Specific Gravity Urine 1.005 (1.000-1.030); Urobilinogen Urine Negative (Negative)
[2022-03-03] MEDS: LANTUS PER UNIT CHARGE SQ SCH (22:33)
[2022-03-03] MEDS: INSULIN ASPART PER UNIT SC SCH (22:34)
--- NOTE | 2022-03-04 01:31 | Emergency Department Note ---
Impression & Plan Recurrent falls, Generalized weakness, Hypomagnesemia, Suprapatellar effusion of knee ED Provider Note NAME: RAMY CHARLES AGE: 71 SEX: M ARRIVES VIA: Ambulance INFORMANT: Patient ED PROVIDER(S): Yousif Restrepo MD CHIEF COMPLAINT: Generalized weakness, referred for placement PLAN: Disposition: Admit MEDICAL DECISION MAKING: The patient is a pleasant 71-year-old gentleman with a past medical history of Hartmann cirrhosis, IDDM 2, obesity, chronic back pain, discitis, hypertension, atrial fibrillation on warfarin, CAD, hyperlipidemia, ALDO on CPAP who presents to the emergency department company by his for evaluation of generalized weakness and referral by his doctor for admission and placement due to continued progression of weakness where he has become nonambulatory for the past several weeks. He denies any fevers, chills, cough, congestion, GI or symptoms. The patient's reports that he has been having home therapy but has continued to decline despite this. He has swelling of his right knee related to recurrent falls which he reports has been drained in the past couple weeks by orthopedics but the fluid has reaccumulated. On arrival the patient is fatigued appearing but no acute distress, afebrile with blood pressure 150s/80s and vital signs otherwise stable. He has generalized weakness without focal neurologic deficits. He has a large right knee effusion without significant warmth or tenderness. He is able to bend and straighten the knee. He has minor skin avulsion to the medial aspect of the fifth toe of his left foot. No active bleeding. 3+ bilateral lower extremity edema is presents. EKG without overt acute ischemia. CXR negative for acute cardiopulmonary process. WBC 4.5K nonspecific. H/H similar to prior values. Platelets within normal limits. INR subtherapeutic 1.4. Chemistry without metabolic acidosis. Potassium 3.2, phosphorus 2.3 and magnesium 1.6 with repletion initiated. LFTs similar to prior values. UA without convincing evidence of infection. COVID-19 RNA, ANA test was negative. Given the patient's progressive decline despite home therapy they do agree with plan for admission for further evaluation and placement. Case was discussed with [facility] admitting resident, Dr. West with [facility] hospitalist Dr. Benz, who will evaluated the patient for admission. Triage Nursing notes reviewed and agree them. Prior medical records reviewed Vital Signs: reviewed and remarkable for no significant abnormalities Differential diagnosis: Infection, dehydration, metabolic abnormality, hypo/hyperglycemia, electrolyte disturbance, anemia, hypoxia, cardiac sources, intracerebral event, toxicologic, neurologic, as well as other pathologies. ER treatment provided: See below. Diagnostics interpreted by me: ECG: Sinus bradycardia with sinus arrhythmia, 59 bpm, no ectopy, first-degree AV block, no overt ST elevation or depression, QTC 471, QRS 112. Cardiac Monitoring: An order for continuous cardiac monitoring was placed and demonstrated Sinus bradycardia with sinus arrhythmia, 59 bpm, no ectopy. Laboratory studies: See below Imaging studies: See below Consultation: [facility] admitting resident, Dr. West with [facility] hospitalist Dr. Benz HPI: The patient is a pleasant 71-year-old gentleman with a past medical history of Hartmann cirrhosis, IDDM 2, obesity, chronic back pain, discitis, hypertension, atrial fibrillation on warfarin, CAD, hyperlipidemia, ALDO on CPAP who presents to the emergency department company by his for evaluation of generalized weakness and referral by his doctor for admission and placement due to continued progression of weakness where he has become nonambulatory for the past several weeks. He denies any fevers, chills, cough, congestion, GI or symptoms. The patient's reports that he has been having home therapy but has continued to decline despite this. He has swelling of his right knee related to recurrent falls which he reports has been drained in the past couple weeks by orthopedics but the fluid has reaccumulated. ROS: See above HPI for pertinent positives & negatives. A total of 10 systems reviewed and were otherwise negative. VITALS:See Below PHYSICAL EXAMINATION: GENERAL: Awake, alert, fatigued-appearing, in no distress, BMI 42.3. HENT: Normocephalic, atraumatic. Oropharynx unremarkable. EYES: Normal conjunctiva. Sclera non-icteric. NECK: Supple. No nuchal rigidity. FROM. No JVD. RESPIRATORY: Clear to auscultation. CARDIAC: Regular rate, normal rhythm. Extremities warm and well perfused. Pulses equal. ABDOMEN: Soft, non-distended. No tenderness to palpation. No rebound or guarding. No masses. RECTAL: Deferred. MUSCULOSKELETAL: Chest examination reveals no tenderness. The back is symmetrical on inspection without obvious abnormality. There is no CVA tenderness to palpation. LOWER EXTREMITIES: Large right knee effusion without significant warmth or tenderness. He is able to bend and straighten the knee. Left knee with minor skin tear. He has minor skin avulsion to the medial aspect of the fifth toe of his left foot. No active bleeding. 3+ bilateral lower extremity edema is presents. NEURO: No focal sensory or motor deficits noted. Generalized weakness with 4/5 strength x 4 ext. SKIN: No rash or jaundice noted. Yousif Restrepo MD Past Med/Surg History Medical History Acute confusion Ambulatory dysfunction Anemia Anxiety and depression CAD (coronary artery disease) Cauda equina compression Chronic systolic CHF (congestive heart failure) Cirrhosis of liver not due to alcohol Cyst of kidney, acquired Depression Enlarged prostate Esophageal varices Essential tremor Expressive aphasia GERD (gastroesophageal reflux disease) Gout Hepatic hemangioma Hx of myocardial infarction 1994 Hyperlipidemia Hypertension Internal hemorrhoids Liver failure NOT CANDIDATE FOR LIVER TRANSPLANT - [facility] (current) use of anticoagulants warfarin daily Mass of petrous temporal bone Medical marijuana use Morbid obesity BMI 43 Opioid dependence Osteomyelitis of lumbar spine PAF (paroxysmal atrial fibrillation) Pancytopenia Pigmented nevus Pulmonary nodule Seborrheic keratosis Sleep apnea USES CPAP Thyroid nodule Tubular adenoma of colon Type 2 diabetes mellitus Urinary tract infection Vitamin D deficiency Wide-complex tachycardia Surgical History History of back surgery X3 - 2 FOR FUSION AND LAST TO CLEAN UP INFECTION History of cardiac cath X4 - [facility] AND [place] - LAST ONE 02/2011 ? [facility] [place] History of coronary artery bypass graft x 3 X2 - 1993 AND 2010 - [place] History of esophagogastroduodenoscopy (EGD) (~05/29/19) History of heart surgery atrial septal deficit repair @ [facility] 1993 at same time as CABG History of right knee surgery X4 to repair broken patella Hx of colonoscopy Hx of vasectomy Family History Mother Stroke Father Stroke Aunt Cancer Liver cancer and stomach cancer Other No family history of adverse response to anesthesia No significant family history Denies family history of Colon cancer Ovarian cancer Prostate cancer Myocardial infarction Breast cancer Social History Smoking Status: Never smoker Tobacco Type: Cigarettes Age Quit Using Tobacco: 60; Second Hand Exposure: No; Hx Alcohol Use: No Hx Substance Use: Yes Prescribed Medications: Marijuana Last Used Substance: Days (ago) Last Used Substance Other:: 03/02/22-april Substance Use Type Other:: medical marijuana; edible and smoked forms Preferred Language: Azeri Communication Ability: Effective Visual Impairment: No Limitations Hearing Ability: Normal 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 Education Required: No Beliefs That Will Affect Care: None marital status: Current Living Situation: Spouse current occupational status: retired Other Information That Helps Us Care for You: No Feels Safe at Home: Yes Safety Concerns: Feels Safe At This Time Childhood Exposure to Second-Hand Smoke: Yes Dental Care, Regularly: Yes Physical Activity Frequency: 3-4 Times per Week Seatbelt Use: always Sunscreen Use: Yes Assistive Devices: Glasses, Walker and Wheelchair Assistive Devices Comment: glasses in room; walker + wheelchair at home Allergies Allergies Allergy/AdvReac Type Severity Reaction Status Date / Time simvastatin AdvReac Intermediate GI UPSET- Verified 02/23/22 15:00 OK WITH LIPITOR pioglitazone AdvReac Mild GI UPSETS Verified 02/23/22 15:00 spironolactone AdvReac Mild NIPPLES Verified 02/23/22 15:00 HURT Home Meds Home Medications Medication Instructions Recorded Confirmed multivitamin 1 tab PO QAM 01/23/19 03/03/22 lisinopril 40 mg tablet 20 mg PO DAILY 02/04/22 03/03/22 vitamin B complex 1 cap PO DAILY 02/23/22 03/03/22 diclofenac sodium 1 % topical gel 4 g topical QID PRN Pain 03/03/22 03/03/22 warfarin 5 mg tablet 5 mg PO .QFRI 03/03/22 03/03/22 Previous Rx's Medication Instructions Recorded lactulose 20 gram/30 mL oral 45 ml PO BID 30 days #2,700 mL 03/15/21 solution isosorbide mononitrate 120 mg 120 mg PO QPM #90 tabs 03/16/21 tablet,extended release 24 hr insulin glargine 100 unit/mL (3 8 unit (0.08 mL) subcut HS 90 days 07/02/21 mL) subcutaneous pen (Lantus #7.2 mL Solostar U-100 Insulin) ezetimibe 10 mg tablet 10 mg PO QPM 90 days #90 tabs 07/06/21 nitroglycerin 0.6 mg sublingual 0.6 mg sublingual DIRECTED PRN 07/07/21 tablet Chest Pain #25 tabs duloxetine 60 mg capsule,delayed 60 mg PO QAM #90 caps 09/03/21 release eplerenone 25 mg tablet 25 mg PO QAM 90 days #90 tabs 09/03/21 pantoprazole 40 mg tablet,delayed 40 mg PO BID #180 tabs 09/03/21 release bupropion HCl 100 mg tablet,12 hr 100 mg PO QAM #90 ea 10/23/21 sustained-release (Wellbutrin SR) dutasteride 0.5 mg capsule 0.5 mg PO HS #90 caps 11/03/21 (Avodart) tamsulosin 0.4 mg capsule 0.4 mg PO HS 90 days #90 caps 11/03/21 zinc 50 mg tablet 50 mg PO DAILY #30 tabs 11/17/21 diltiazem HCl 180 mg capsule,24 180 mg PO QAM #90 caps 01/07/22 hr,extended release doxycycline monohydrate 100 mg 100 mg PO BIDM #180 caps 01/07/22 capsule furosemide 40 mg tablet 80 mg PO QAM #180 tabs 01/07/22 gabapentin 300 mg capsule 300 mg PO TID #270 caps 01/07/22 omega-3 acid ethyl esters 1 gram 1 cap PO BID #180 caps 01/07/22 capsule propranolol 10 mg tablet 10 mg PO TID #270 tabs 01/07/22 warfarin 7.5 mg tablet 7.5 mg PO 6XWK #90 tabs 01/07/22 rifaximin 550 mg tablet (Xifaxan) 550 mg PO TID #270 tabs 01/28/22 Results & Data (ED) Vital Signs Vital Signs - 24 hr 03/03/22 15:39 03/03/22 18:12 03/03/22 18:12 Temperature 36.7 C Temperature Source Temporal Artery Scan Pulse Rate 57 L Pulse Rate [Apical] 59 L Pulse Rhythm [Apical] Regular Pulse Strength [Apical] Normal Respiratory Rate 18 22 Respiratory Depth Shallow Respiratory Pattern Regular Blood Pressure 155/84 H Blood Pressure [Right Arm] 150/100 H Blood Pressure Mean 107 Blood Pressure Mean [Right Arm] 116 Blood Pressure Position [Right Arm] Sitting Pulse Oximetry 98 100 Oxygen Delivery Method Room Air Room Air Room Air Sepsis Recent Fever Within 48 Hours No Sepsis New/Unexplained Change in Mental Status No Sepsis Action Taken by Nursing No Action Required 03/03/22 20:00 Temperature Temperature Source Pulse Rate Pulse Rate [Apical] 64 Pulse Rhythm [Apical] Pulse Strength [Apical] Respiratory Rate 22 Respiratory Depth Respiratory Pattern Blood Pressure Blood Pressure [Right Arm] 109/67 Blood Pressure Mean Blood Pressure Mean [Right Arm] 81 Blood Pressure Position [Right Arm] Lying Pulse Oximetry 98 Oxygen Delivery Method Room Air Sepsis Recent Fever Within 48 Hours Sepsis New/Unexplained Change in Mental Status Sepsis Action Taken by Nursing Laboratory Data Result diagrams: 03/03/22 16:33 03/03/22 16:33 Lab Results 03/03/22 03/03/22 03/03/22 Range/Units 15:54 16:33 16:33 WBC 4.58 L (4.8-10.8) K/ul RBC 4.83 (4.63-6.08) M/uL Hgb 9.7 L (14.0-18.0) g/dl Hct 30.7 L (40.1-51.0) % MCV 63.6 L (80.0-100.0) fL MCH 20.1 L (25.0-34.0) pg MCHC 31.6 L (32.0-36.0) g/dL RDW Std Deviation 54.7 H (36.4-46.3) fL RDW Coeff of Jt 25.3 H (11.5-14.5) % Plt Count 179 (130-400) K/uL Neutrophils % (Manual) 52 % Lymphocytes % (Manual) 17 % Monocytes % (Manual) 12 % Eosinophils % (Manual) 3 % Basophils % (Manual) 1 % Neutrophils # (Manual) 2.38 (1.4-6.5) K/uL Total Absolute Neuts 2.38 (1.4-6.5) K/uL Lymphocytes # (Manual) 0.78 L (1.2-3.4) K/uL Total Abs Lymphocytes 1.51 (1.2-3.4) K/uL Monocytes # (Manual) 0.55 (0.24-0.82) K/uL Eosinophils # (Manual) 0.14 (0-0.50) K/uL Basophils # (Manual) 0.05 (0-0.2) K/uL Large Granular Lymphs 16 % # Lrg Granular Lymphs 0.73 K/uL Polychromasia 1+ Hypochromasia Present Microcytosis Present Target Cells 2+ PT 15.1 H (9.0-12.0) Seconds INR 1.4 H (0.9-1.1) Sodium (136-145) mmol/L Potassium (3.5-5.1) mmol/L Chloride (98-107) mmol/L Carbon Dioxide (21-32) mmol/L Anion Gap (3-11) BUN (6-23) mg/dl Creatinine (0.6-1.4) mg/dl Est Cr Clr Drug Dosing Est GFR ( Amer) ml/min Est GFR (Non-Af Amer) ml/min BUN/Creatinine Ratio (10-20) Glucose (70-99(Fasting)) mg/dl Calcium (8.5-10.1) mg/dl Phosphorus (2.5-4.9) mg/dl Magnesium (1.7-2.4) mg/dl Total Bilirubin (0.2-1.0) mg/dl AST (13-39) U/L ALT (7-52) U/L Alkaline Phosphatase (34-104) U/L Total Protein (6.0-8.3) gm/dl Albumin (3.4-5.0) gm/dl Globulin (2.5-4.0) gm/dl Albumin/Globulin Ratio (0.9-2) SARS-CoV-2, RNA, NAAT NEGATIVE (NEGATIVE) 03/03/22 03/03/22 Range/Units 16:33 16:33 WBC (4.8-10.8) K/ul RBC (4.63-6.08) M/uL Hgb (14.0-18.0) g/dl Hct (40.1-51.0) % MCV (80.0-100.0) fL MCH (25.0-34.0) pg MCHC (32.0-36.0) g/dL RDW Std Deviation (36.4-46.3) fL RDW Coeff of Jt (11.5-14.5) % Plt Count (130-400) K/uL Neutrophils % (Manual) % Lymphocytes % (Manual) % Monocytes % (Manual) % Eosinophils % (Manual) % Basophils % (Manual) % Neutrophils # (Manual) (1.4-6.5) K/uL Total Absolute Neuts (1.4-6.5) K/uL Lymphocytes # (Manual) (1.2-3.4) K/uL Total Abs Lymphocytes (1.2-3.4) K/uL Monocytes # (Manual) (0.24-0.82) K/uL Eosinophils # (Manual) (0-0.50) K/uL Basophils # (Manual) (0-0.2) K/uL Large Granular Lymphs % # Lrg Granular Lymphs K/uL Polychromasia Hypochromasia Microcytosis Target Cells PT (9.0-12.0) Seconds INR (0.9-1.1) Sodium 141 (136-145) mmol/L Potassium 3.2 L (3.5-5.1) mmol/L Chloride 107 (98-107) mmol/L Carbon Dioxide 30 (21-32) mmol/L Anion Gap 4 (3-11) BUN 8 (6-23) mg/dl Creatinine 0.76 (0.6-1.4) mg/dl Est Cr Clr Drug Dosing Not Reportable Est GFR ( Amer) 107.9 ml/min Est GFR (Non-Af Amer) 93.1 ml/min BUN/Creatinine Ratio 10.5 (10-20) Glucose 76 (70-99(Fasting)) mg/dl Calcium 8.3 L (8.5-10.1) mg/dl Phosphorus 2.3 L (2.5-4.9) mg/dl Magnesium 1.6 L (1.7-2.4) mg/dl Total Bilirubin 1.1 H (0.2-1.0) mg/dl AST 58 H (13-39) U/L ALT 39 (7-52) U/L Alkaline Phosphatase 275 H (34-104) U/L Total Protein 6.3 (6.0-8.3) gm/dl Albumin 2.6 L (3.4-5.0) gm/dl Globulin 3.7 (2.5-4.0) gm/dl Albumin/Globulin Ratio 0.7 L (0.9-2) SARS-CoV-2, RNA, NAAT (NEGATIVE) Administered Medications Diltiazem HCl (Diltiazem Er 180 Mg Capcr) 180 mg PO QAM PHIL Stop: 04/02/22 21:14 Last Admin: 03/03/22 22:15 Dose: 180 mg Documented By: RH Doxycycline Hyclate (Doxycycline Hyclate 100 Mg Cap) 100 mg PO BIDM PHIL Stop: 04/02/22 21:44 Last Admin: 03/03/22 22:14 Dose: 100 mg Documented By: RH Duloxetine HCl (Duloxetine Hcl 60 Mg Cap) 60 mg PO QAM PHIL Stop: 04/02/22 21:14 Last Admin: 03/03/22 22:20 Dose: 60 mg Documented By: RH Dutasteride (Dutasteride) 1 each PO HS PHIL Stop: 04/02/22 22:14 Last Admin: 03/03/22 22:21 Dose: 1 each Documented By: RH Ezetimibe (Ezetimibe 10 Mg Tablet) 10 mg PO QPM PHIL Stop: 04/02/22 21:14 Last Admin: 03/03/22 22:20 Dose: 10 mg Documented By: RH Fish Oil ([place]-3 (Purified Fish Oil) 1 Gm Cap) 1 gm PO BID PHIL Stop: 04/02/22 21:29 Last Admin: 03/03/22 22:14 Dose: 1 gm Documented By: RH Furosemide (Furosemide 80 Mg Tab) 80 mg PO QAM PHIL Stop: 04/02/22 21:14 Last Admin: 03/03/22 22:20 Dose: Not Given Documented By: RH Gabapentin (Gabapentin 300 Mg Cap) 300 mg PO TID PHIL Stop: 04/02/22 21:14 Last Admin: 03/03/22 22:19 Dose: 300 mg Documented By: RH Insulin Aspart (Insulin Aspart Per Unit) 0 units SC ACHS PHIL Stop: 04/02/22 21:14 Last Admin: 03/03/22 22:34 Dose: Not Given Documented By: RH Co-signed By: LY Insulin Glargine (Lantus Per Unit Charge) 20 units SQ BID PHIL Stop: 04/02/22 21:14 Last Admin: 03/03/22 22:33 Dose: 20 units Documented By: RH Co-signed By: LY Isosorbide Mononitrate (Isosorbide [place] Extended Rel 60 Mg Tabcr) 120 mg PO QPM PHIL Stop: 04/02/22 21:14 Last Admin: 03/03/22 22:19 Dose: 120 mg Documented By: RH Lactulose (Lactulose Syrup 30 Gm/45 Ml Udp) 30 gm PO BID PHIL Stop: 04/02/22 21:14 Last Admin: 03/03/22 22:22 Dose: 30 gm Documented By: RH Lisinopril (Lisinopril 20 Mg Tab) 20 mg PO DAILY PHIL Stop: 04/02/22 21:14 Last Admin: 03/03/22 22:15 Dose: 20 mg Documented By: RH Pantoprazole Sodium (Pantoprazole 40 Mg Tab) 40 mg PO BID PHIL Stop: 04/02/22 21:14 Last Admin: 03/03/22 22:18 Dose: 40 mg Documented By: RH Potassium Phosphate (Pot Phosphate Monobasic W/ Sod Tab) 1 tab PO QID PHIL Stop: 04/02/22 21:14 Last Admin: 03/03/22 22:18 Dose: 1 tab Documented By: RH Propranolol HCl (Propranolol Hcl 10 Mg Tab) 10 mg PO TID PHIL Stop: 04/02/22 21:14 Last Admin: 03/03/22 22:18 Dose: 10 mg Documented By: RH Rifaximin (Rifaximin 550 Mg Tablet) 550 mg PO TID [facility] Stop: 04/02/22 21:14 Last Admin: 03/03/22 22:15 Dose: 550 mg Documented By: RH Tamsulosin HCl (Tamsulosin Hcl 0.4 Mg Cap) 0.4 mg PO HS [facility] Stop: 04/02/22 21:14 Last Admin: 03/03/22 22:18 Dose: 0.4 mg Documented By: RH Warfarin Sodium (Warfarin Sod 7.5 Mg Tab) 7.5 mg PO [id number] PHIL Stop: 04/02/22 21:14 Last Admin: 03/03/22 22:16 Dose: 7.5 mg Documented By: RH Discontinued Medications Magnesium Sulfate/Dextrose (Magnesium Sulfate / D5w) 1 gm in 100 mls @ 100 mls/hr IV NOW STA Stop: 03/03/22 18:58 Last Infusion: 03/03/22 20:25 Dose: 0 mls/hr Documented By: Admin: 03/03/22 18:11 Dose: 100 mls/hr Documented By: JACK Miscellaneous (Avodart~Order Awaiting Action) 1 each N/A QS PHIL Stop: 04/02/22 21:44 Last Admin: 03/03/22 22:29 Dose: Not Given Documented By: RH Miscellaneous (Eplerenone~Order Awaiting Action) 1 each N/A QS PHIL Stop: 04/02/22 21:44 Last Admin: 03/03/22 22:29 Dose: Not Given Documented By: RH Warfarin Sodium (Warfarin Sod 2.5 Mg Tab) 2.5 mg PO ONCE ONE Stop: 03/03/22 21:16 Last Admin: 03/03/22 22:17 Dose: 2.5 mg Documented By: RH Imaging Data Radiologist's Impression: Chest X-Ray 03/03/22 15:43 XR chest 1V portable CLINICAL HISTORY: Frequent falls, weakness TECHNIQUE: Single frontal radiograph of the chest was obtained. Comparison: Comparison is made to chest radiograph 12/28/2021 FINDINGS: Median sternotomy wires are unchanged. Fractured superior wires again noted. Cardiomegaly is noted. The lungs are clear. No evidence of pleural effusion or pneumothorax. IMPRESSION: No acute chest disease. ACT 112: Negative or not required by law. Electronically signed by: Sebastian Bower M.D. 03/03/2022 4:28 PM Knee X-Ray 03/03/22 19:35 XR knee RT 3V CLINICAL HISTORY: fall with right nee pain/swelling TECHNIQUE: 3 views of the right knee were obtained. Comparison: Comparison is made to right knee radiograph 11/13/[address] 11/13/2021 FINDINGS: Again noted are severe degenerative changes in the knee. There is a large s uprapatellar effusion. Again noted are severe degenerative changes of the knee joint with mild fragmentation of the patella. The bones are osteopenic. Within these limitations, no definite acute fracture is seen. Soft tissue swelling is seen. IMPRESSION: Interval development of large suprapatellar effusion. Evaluation for acute fracture is limited by severe degenerative changes and fragmentation, however there is no definite acute fracture. If there is clinical concern, CT can be performed. ACT 112: Negative or not required by law. Electronically signed by: Sebastian Bower M.D. 03/03/2022 8:55 PM Discharge Plan Visit Data Chief Complaint: Weakness Stated Complaint: repeated falls - lac L foot ED Provider: Yousif Restrepo Discharge Problem: Recurrent falls, Generalized weakness, Hypomagnesemia, Suprapatellar effusion of knee Patient Disposition: Admitted As Inpatient Discharge Instructions Interventions: ED Discharge Assessment Last Done: 03/03/22 20:49
[2022-03-04 06:16] LABS: Hematocrit (blood only) 28.7 % (40.1-51.0); Mean Corpuscular Hemoglobin 20.2 pg (25.0-34.0); Mean Corpuscular Hgb Conc 31.4 g/dL (32.0-36.0); Mean Corpuscular Volume 64.5 fL (80.0-100.0); RDW Coefficient of Variation 24.5 % (11.5-14.5); RDW Standard Deviation 54.4 fL (36.4-46.3); Red Blood Count 4.45 M/uL (4.63-6.08); White Blood Count 3.77 K/ul (4.8-10.8)
[2022-03-04 06:43] LABS: Albumin Globulin Ratio 0.7 (0.9-2); Albumin Level 2.4 gm/dl (3.4-5.0); BUN Creatinine Ratio 10.1 (10-20); Bilirubin,Total 0.9 mg/dl (0.2-1.0); Calcium 7.9 mg/dl (8.5-10.1); Creatinine Clr Calc Pharmacy 138.2 ml/min; Est GFR (African American) 112.3 ml/min; Est GFR (Non-African American) 96.9 ml/min; Globulin 3.4 gm/dl (2.5-4.0); Magnesium 1.6 mg/dl (1.7-2.4); Total Protein 5.8 gm/dl (6.0-8.3)
[2022-03-04 06:59] LABS: INR 1.4 (0.9-1.1)
[2022-03-04 07:33] LABS: Platelet Count 155 K/uL (130-400)
--- NOTE | 2022-03-04 08:12 | Electrocardiogram Report ---
Test Reason : Blood Pressure : / mmHG Vent. Rate : 059 BPM Atrial Rate : 059 BPM P-R Int : 232 ms QRS Dur : 112 ms QT Int : 476 ms P-R-T Axes : 035 041 055 degrees QTc Int : 471 ms Poor data quality, interpretation may be adversely affected Sinus bradycardia with sinus arrhythmia with 1st degree A-V block Old Inferior infarct When compared with ECG of 04-FEB-2022 12:03, Premature ventricular complexes are no longer Present CT interval has increased Confirmed by Denton Roberts ([id number]) on 03/04/2022 8:12:09 AM Referred By: Wayne Florez Confirmed By:Denton Roberts
[2022-03-04] MEDS ORDERED: NON-FORMULARY MEDICATION PO SCH (09:00)
[2022-03-04] MEDS: PANTOprazole 40 MG TAB PO SCH ×2 (09:06→20:53)
[2022-03-04] MEDS: DULoxetine HCL 60 MG CAP PO SCH (09:06)
[2022-03-04] MEDS: FUROSEMIDE 80 MG TAB PO SCH (09:07)
[2022-03-04] MEDS: dilTIAZem ER 180 MG CAPCR PO SCH (09:07)
[2022-03-04] MEDS: lisinopril 20 MG TAB PO SCH (09:07)
[2022-03-04] MEDS: buPROPion SR 100 MG TABCR PO SCH (09:08)
[2022-03-04] MEDS: DOXYCYCLINE HYCLATE 100 MG CAP PO SCH ×2 (09:08→17:14)
[2022-03-04] MEDS: OMEGA-3 (PURIFIED FISH OIL) 1 GM CAP PO SCH ×2 (09:09→20:53)
[2022-03-04] MEDS: POT PHOSPHATE MONOBASIC W/ SOD TAB PO SCH ×4 (09:09→20:52)
[2022-03-04] MEDS: MULTIVITAMIN TAB PO SCH (09:09)
[2022-03-04] MEDS: PROPRANOLOL HCL 10 MG TAB PO SCH ×3 (09:10→20:54)
[2022-03-04] MEDS: GABAPENTIN 300 MG CAP PO SCH ×3 (09:11→20:54)
[2022-03-04] MEDS: rifAXIMin 550 MG TABLET PO SCH ×3 (09:11→20:54)
[2022-03-04] MEDS: VITAMIN B COMPLEX TAB PO SCH (09:11)
[2022-03-04] MEDS: ZINC SULFATE 220 MG CAPSULE PO SCH (09:11)
[2022-03-04] MEDS: EPLERENONE PO SCH (09:12)
[2022-03-04] MEDS: LACTULOSE SYRUP 30 GM/45 ML UDP PO SCH ×2 (09:12→20:54)
[2022-03-04] MEDS ORDERED: PNEUMOCOCCAL POLYSACCHARIDES 25 MCG/0.5 ML VIAL/SYR IM ONE (09:30)
[2022-03-04] MEDS: INSULIN ASPART PER UNIT SC SCH ×4 (09:38→20:51)
[2022-03-04] MEDS: LANTUS PER UNIT CHARGE SQ SCH ×2 (09:39→20:51)
[2022-03-04] MEDS ORDERED: POTASSIUM CHLORIDE CRTAB 20 MEQ TABCR PO STA (10:51)
--- NOTE | 2022-03-04 11:02 | CT Scan Report ---
CT SCAN OF THE RIGHT KNEE WITHOUT IV CONTRAST CLINICAL HISTORY: Joint effusion. COMPARISON STUDY: Radiographs of the right knee dated 03/03/2022. CT of the right knee dated 11/13/2021. TECHNIQUE: CT scan of the right knee is performed from the distal femur to the proximal tibia and fib andrés. Images are reviewed in the axial, sagittal, and coronal planes. IV contrast was not administered for this examination. A dose lowering technique was utilized adhering to the principles of ALARA. CT DOSE: 360.37 mGy.cm FINDINGS: The skeletal structures are osteopenic. No acute fracture is identified. There is no bony e rosion or periostitis. Moderate to advanced tricompartmental degenerative changes seen in the knee. T here is chondrocalcinosis within the medial and lateral compartments. There are large marginal osteop hytes and patellar enthesophytes. There is a large joint effusion with numerous calcified joint mirza s and overlying synovial thickening. There is soft tissue edema and subcutaneous fluid present around the knee, greatest anteriorly. There is generalized atrophy of the regional musculature. Atheroscler otic calcification is seen in the regional arteries. IMPRESSION: 1. There is no evidence of acute fracture. 2. Osteopenia with advanced degenerative change and chondrocalcinosis as above. 3. There is a large joint effusion with numerous calcified joint bodies and overlying synovial thicke soto. The sterility of this fluid cannot be assessed by imaging. Clinical correlation will be require d. 4. Soft tissue edema and subcutaneous fluid is seen around the knee, greatest anteriorly. ACT 112: Negative or not required by law. Dictated: 03/04/2022 10:34 AM Transcribed: 03/04/2022 10:54 AM Maryann [id number] [email or web address] Electronically signed by: Ronal Brady M.D. 03/04/2022 11:01 AM
[2022-03-04] MEDS: MAGNESIUM SULFATE / D5W 1 GM/100 ML BAG IV SCH ×2 (11:04→13:49)
--- NOTE | 2022-03-04 15:15 | History & Physical Report ---
Date of Service March 04, 2022 Assessment & Plan (1) Osteoarthritis of right knee: Unfortunately he is dealing with a very bad knee. It has been neglected for many years. I aspirated the fluid from his knee about 6 weeks ago but it just quickly returned. His knee issues have been chronic. I think the only surgical procedures that would help his knee would either be a hinged knee prosthesis or a knee fusion. He is a diabetic and he has multiple medical comorbidities. This is not a surgery that we would do at [facility]. I discussed this with him in the office and he and his do not want any surgical procedures with the right knee. If that continues to be the case then he should be discharged to an inpatient rehab facility to work on strengthening and stability. However, if he decides to have a surgical opinion of his right knee then that would best be done at a tertiary care facility such as [facility] or [facility]. I can continue to follow him in the office for aspirations or injections of the knee, however, the most recent treatment did not seem to be very helpful. History of Present Illness Chief Complaint: Right knee pain and effusion. Primary Care Provider: Wayne FlorezDO Waldron is a pleasant 71-year-old male who has a long history with his right knee. He initially injured it playing basketball in the 1980s. He had several surgeries to his right knee. Eventually he had the superior pole of his patella removed. He has had a flexed knee for years. He ambulates with a cane mostly due to his knee and his back. His knee is always been painful. He has not sought out any further treatment for his right knee. With regards to his back he has had several lumbar surgeries. He is still dealing with a lot of back pain. He walks with a forward flexed posture with a cane because of his back and his right knee. Unfortunately he has been having weakness on his right side. He has had several falls in the past several weeks. He has been admitted to the hospital due to the weakness. I saw him in the office about 6 weeks ago and aspirated 150 cc of straw-colored fluid from his right knee and given a cortisone injection. He said the injection did not help much with his pain and the effusion quickly returned. He is still dealing with pain and weakness of his right knee. Orthopedics was consulted to evaluate and treat. . Allergies Allergy/AdvReac Type Severity Reaction Status Date / Time simvastatin AdvReac Intermediate GI UPSET- Verified 02/23/22 15:00 OK WITH LIPITOR pioglitazone AdvReac Mild GI UPSETS Verified 02/23/22 15:00 spironolactone AdvReac Mild NIPPLES Verified 02/23/22 15:00 HURT Home Medications Medication Instructions Recorded Confirmed Type multivitamin 1 tab PO QAM 01/23/19 03/03/22 History lactulose 20 gram/30 mL oral 45 ml PO BID 30 days #2,700 mL 03/15/21 03/03/22 Rx solution isosorbide mononitrate 120 mg 120 mg PO QPM #90 tabs 03/16/21 03/03/22 Rx tablet,extended release 24 hr insulin glargine 100 unit/mL (3 8 unit (0.08 mL) subcut HS 90 days 07/02/21 03/03/22 Rx mL) subcutaneous pen (Lantus #7.2 mL Solostar U-100 Insulin) ezetimibe 10 mg tablet 10 mg PO QPM 90 days #90 tabs 07/06/21 03/03/22 Rx nitroglycerin 0.6 mg sublingual 0.6 mg sublingual DIRECTED PRN 07/07/21 03/03/22 Rx tablet Chest Pain #25 tabs duloxetine 60 mg capsule,delayed 60 mg PO QAM #90 caps 09/03/21 03/03/22 Rx release eplerenone 25 mg tablet 25 mg PO QAM 90 days #90 tabs 09/03/21 03/03/22 Rx pantoprazole 40 mg tablet,delayed 40 mg PO BID #180 tabs 09/03/21 03/03/22 Rx release bupropion HCl 100 mg tablet,12 hr 100 mg PO QAM #90 ea 10/23/21 03/03/22 Rx sustained-release (Wellbutrin SR) dutasteride 0.5 mg capsule 0.5 mg PO HS #90 caps 11/03/21 03/03/22 Rx (Avodart) tamsulosin 0.4 mg capsule 0.4 mg PO HS 90 days #90 caps 11/03/21 03/03/22 Rx zinc 50 mg tablet 50 mg PO DAILY #30 tabs 11/17/21 03/03/22 Rx diltiazem HCl 180 mg capsule,24 180 mg PO QAM #90 caps 01/07/22 03/03/22 Rx hr,extended release doxycycline monohydrate 100 mg 100 mg PO BIDM #180 caps 01/07/22 03/03/22 Rx capsule furosemide 40 mg tablet 80 mg PO QAM #180 tabs 01/07/22 03/03/22 Rx gabapentin 300 mg capsule 300 mg PO TID #270 caps 01/07/22 03/03/22 Rx omega-3 acid ethyl esters 1 gram 1 cap PO BID #180 caps 01/07/22 03/03/22 Rx capsule propranolol 10 mg tablet 10 mg PO TID #270 tabs 01/07/22 03/03/22 Rx warfarin 7.5 mg tablet 7.5 mg PO 6XWK #90 tabs 01/07/22 03/03/22 Rx rifaximin 550 mg tablet (Xifaxan) 550 mg PO TID #270 tabs 01/28/22 03/03/22 Rx lisinopril 40 mg tablet 20 mg PO DAILY 02/04/22 03/03/22 History vitamin B complex 1 cap PO DAILY 02/23/22 03/03/22 History diclofenac sodium 1 % topical gel 4 g topical QID PRN Pain 03/03/22 03/03/22 History warfarin 5 mg tablet 5 mg PO .QFRI 03/03/22 03/03/22 History Past Med/Surg History Medical History Acute confusion Ambulatory dysfunction Anemia Anxiety and depression CAD (coronary artery disease) Cauda equina compression Chronic systolic CHF (congestive heart failure) Cirrhosis of liver not due to alcohol Cyst of kidney, acquired Depression Enlarged prostate Esophageal varices Essential tremor Expressive aphasia GERD (gastroesophageal reflux disease) Gout Hepatic hemangioma Hx of myocardial infarction 1994 Hyperlipidemia Hypertension Internal hemorrhoids Liver failure NOT CANDIDATE FOR LIVER TRANSPLANT - 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 [facility] [place] History of coronary artery bypass graft x 3 X2 - 1993 AND 2011 - [place] History of esophagogastroduodenoscopy (EGD) (~05/29/19) [place] heart [place]al [place] [facility] [place] [facility] History of right knee surgery X4 to repair broken patella Hx of colonoscopy Hx of vasectomy Family History Mother Stroke Father Stroke Aunt Cancer Liver cancer and stomach cancer Other No family history of adverse response to anesthesia No significant family history Denies family history of Colon cancer Ovarian cancer Prostate cancer Myocardial infarction Breast cancer Social History Smoking Status: Never smoker Tobacco Type: Cigarettes Age Quit Using Tobacco: 60; Second Hand Exposure: No; Hx Alcohol Use: No Hx Substance Use: Yes Prescribed Medications: Marijuana Last Used Substance: Days (ago) Last Used Substance Other:: 03/02/22-marijauna Substance Use Type Other:: medical marijuana; edible and smoked forms Preferred Language: Taiwanese Communication Ability: Effective Visual Impairment: No Limitations Hearing Ability: Normal [employer] Ax Consultant Required: No Beliefs That Will Affect Care: None marital status: Current Living Situation: Spouse current occupational status: retired Other Information That Helps Us Care for You: No Feels Safe at Home: Yes Safety Concerns: Feels Safe At This Time Childhood Exposure to Second-Hand Smoke: Yes Dental Care, Regularly: Yes Physical Activity Frequency: 3-4 Times per Week Seatbelt Use: always Sunscreen Use: Yes Assistive Devices: Walker and Wheelchair Assistive Devices Comment: glasses in room; walker + wheelchair at home Review of Systems All systems reviewed & are unremarkable except as noted in HPI & below. Physical Exam On physical examination the right knee, he has a large 3+ effusion. He has range of motion from about 45 to 90 degrees. He has a gross deformity of his knee.. Constitutional WD/WN, vitals as above Eyes PERRL, conjunctivae normal, anicteric sclerae ENMT external ear and nose normal, oropharynx normal Neck trachea midline, no thyromegaly Respiratory normal respiratory effort, lungs clear to auscultation Cardiovascular RRR, no murmur, no edema Gastrointestinal (Abdomen) normal bowel sounds, soft, nontender, no hepatosplenomegaly Skin no rashes, warm and dry Psychiatric A+Ox3, euthymic affect Results & Data Results & Data Laboratory Results . Diagnostic Findings X-rays of the right knee are unchanged from previous visits. He has signs of subluxation. There is severe osteoarthritis mostly involving the lateral compartment. There is appears to be a insufficiency of the MCL and the superior pole the patella is missing.. PG Care Time/CCT Total # of Minutes Spent Total Time Spent with Patient: Total time spent is greater than 50% in coordination of care (as documented) at patient's floor/unit and/or counseling patient: Coding Level of Care Code 68326 Initial Inpt Care Lvl 2 Diagnoses Osteoarthritis of right knee M17.11
--- NOTE | 2022-03-04 16:07 | Hospitalist Progress Note ---
Date of Service March 04, 2022 Assessment & Plan (1) Falls: Plan: Presents with multiple falls secondary to chronic right knee pain and severe arthritis causing need to give out -Has been having multiple mechanical falls since last admission, of which, PT/OT had recommended acute rehab stay but patient chose home PT/OT -Patient sustained lacerations to the left knee and foot also with right knee pain/swelling acute on chronic-wound care consult appreciated -PT/OT consults placed, patient and are agreeable to inpatient rehab -Consulted orthopedics for right knee-needs either hinged prosthesis surgery or right knee fusion-patient declines surgery and does have multiple comorbidities which would make surgery risky -Plan for rehab placement (2) Suprapatellar effusion of knee: Plan: Chronic and longstanding issue with large effusion on the right and severe arthritis of the right knee Aspirated by orthopedics a couple of months ago with quick return and no relief with intra-articular steroid injection Orthopedic consult appreciated here-patient would either need a hinged prosthesis or a knee fusion for resolution and patient declines to have surgery Recommends rehab for strengthening No aspiration at this time (3) Subtherapeutic international normalized ratio (INR): Plan: -INR remains subtherapeutic today -Also eating green-leafy vegetables consistently which could be contributing -Normally takes Warfarin at 7.5 mg daily except for Fridays when he takes 5 mg -Received 10 mg on the day of admission and has since resumed his usual dosing. -No need for bridging Lovenox as he is currently in a sinus rhythm -Check INR daily -Patient should be encouraged to eat a consistent amount of green leafy v egetables to assist with stable INR (4) Chronic systolic CHF (congestive heart failure): Plan: No acute issues, with chronic peripheral edema -Continue home lasix, Imdur, propranolol, lisinopril, and eplerenone (5) Anemia: Plan: Microcytic and longstanding although has worsened in the last 4 months-previous baseline hemoglobin around 11 and now down to 9 Check iron studies, B12, folate in the morning Replace as needed Had recent EGD in 01/2022 with grade 3 esophageal varices and portal gastropathy Colonoscopy many years ago No obvious bleeding that he has had from anywhere (6) Depression: Plan: No acute issues -Continue home bupropion (7) PAF (paroxysmal atrial fibrillation): Plan: Is in a sinus rhythm on ECG on admission and by exam -Continue home diltiazem, propranolol -Continue Coumadin (8) Type 2 diabetes mellitus: Plan: Hemoglobin A1c 6.5% in [id number] -Continue basal bolus insulin -Accu checks ACHS (9) Nocturnal hypoxemia: Plan: -Patient hasn't been using at home Cpap due to losing a piece -Will order HS Cpap while admitted (10) Aldosteronism: Plan: -Continue Eplerenone (11) 1st degree AV block: Plan: -ME interval increased at 232, patient asymptomatic -Will continue Diltiazem for now as he has a history PAF to prevent RVR (12) CAD (coronary artery disease): Plan: With a history of redo CABG in 2010 No acute issues Not on aspirin presumably due to being on Coumadin and with a history of cirrhosis and esophageal varices and portal gastropathy-would avoid aspirin Continue propranolol, isosorbide, lisinopril, warfarin (13) Electrolyte abnormality: Plan: Magnesium and potassium remain low-continue to replace with IV magnesium and oral potassium chloride as well as oral potassium phosphorus Phosphorus levels now improved (14) Severe obstructive sleep apnea: Plan: CPAP at nighttime (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 No chest pains or shortness of breath. He declines to have any surgery on the knee and is agreeable to rehab placement. He is eating and drinking, moving his bowels. Review of Systems Review of Systems: All systems reviewed & are unremarkable except as noted in HPI & below Physical Exam Constitutional: WD/WN, vitals as above + obese ENMT: external ear and nose normal, oropharynx normal Neck: trachea midline, no thyromegaly Respiratory: normal respiratory effort, lungs clear to auscultation Cardiovascular: Rate/Rhythm: regular rate and regular rhythm Heart Sounds: no murmur Extremities: + edema (2+ pitting edema of the legs bilaterally to the thighs) Chest (Breasts): Chest: normal inspection of chest Gastrointestinal (Abdomen): normal bowel sounds, soft, nontender, no hepatosplenomegaly Musculoskeletal: Extremities: + extremities abnormal to inspection (Right knee large effusion, no erythema), no cyanosis and no clubbing Skin: no rashes, warm and dry Trauma: + abrasion (Left knee superficial abrasion) and + laceration (Left fourth and fifth toe webspace) Neurologic: moves all extremities and awake; no focal motor deficits Psychiatric: A+Ox3, euthymic affect Results & Data Results & Data ([facility]) Vital Signs (Past 12 Hours) Vital Signs Temp Pulse Pulse Resp BP Pulse Ox O2 Del Method 03/04/22 14:23 36.5 C 56 L 16 110/65 97 Room Air 03/04/22 13:40 62 122/68 03/04/22 08:43 36.5 C 62 18 120/64 98 Room Air 03/04/22 04:40 56 L 14 91 FiO2 03/04/22 14:23 03/04/22 13:40 03/04/22 08:43 03/04/22 04:40 21 Laboratory Results 03/04/22 03/04/22 03/04/22 Range/Units 12:05 08:31 05:43 WBC (4.8-10.8) K/ul RBC (4.63-6.08) M/uL Hgb (14.0-18.0) g/dl Hct (40.1-51.0) % MCV (80.0-100.0) fL MCH (25.0-34.0) pg MCHC (32.0-36.0) g/dL RDW Std Deviation (36.4-46.3) fL RDW Coeff of Jt (11.5-14.5) % Plt Count (130-400) K/uL Neutrophils % (Manual) % Lymphocytes % (Manual) % Monocytes % (Manual) % Eosinophils % (Manual) % Basophils % (Manual) % Neutrophils # (Manual) (1.4-6.5) K/uL Total Absolute Neuts (1.4-6.5) K/uL Lymphocytes # (Manual) (1.2-3.4) K/uL Total Abs Lymphocytes (1.2-3.4) K/uL Monocytes # (Manual) (0.24-0.82) K/uL Eosinophils # (Manual) (0-0.50) K/uL Basophils # (Manual) (0-0.2) K/uL Large Granular Lymphs % # Lrg Granular Lymphs K/uL Polychromasia Hypochromasia Microcytosis Target Cells PT (9.0-12.0) Seconds INR (0.9-1.1) Sodium (136-145) mmol/L Potassium (3.5-5.1) mmol/L Chloride (98-107) mmol/L Carbon Dioxide (21-32) mmol/L Anion Gap (3-11) BUN (6-23) mg/dl Creatinine (0.6-1.4) mg/dl Est Cr Clr Drug Dosing Est GFR ( Amer) ml/min Est GFR (Non-Af Amer) ml/min BUN/Creatinine Ratio (10-20) Glucose (70-99(Fasting)) mg/dl POC Glucose 128 H 80 (70-99) mg/dl Calcium (8.5-10.1) mg/dl Phosphorus (2.5-4.9) mg/dl Magnesium (1.7-2.4) mg/dl Total Bilirubin (0.2-1.0) mg/dl AST (13-39) U/L ALT (7-52) U/L Alkaline Phosphatase (34-104) U/L Total Protein (6.0-8.3) gm/dl Albumin (3.4-5.0) gm/dl Globulin (2.5-4.0) gm/dl Albumin/Globulin Ratio (0.9-2) Urine Color Urine Appearance (Clear) Urine pH (4.5-7.5) Ur Specific [place] (1.000-1.030) Urine Protein (Negative) Urine Glucose (UA) (Negative) Urine Ketones (Negative) Urine Blood (Negative) Urine Nitrite (Negative) Urine Bilirubin (Negative) Urine Urobilinogen (Negative) Ur Leukocyte Esterase (Negative) Urine WBC (Auto) (0-5) /hpf Urine RBC (Auto) (0-4) /hpf U Hyaline Cast (Auto) (0-5) /lpf U Epithel Cells (Auto) (0-5) /lpf Urine Bacteria (Auto) (Negative) Hepatitis C Ab (EIA) Pending Hep C Ab Signal/Cutoff Pending SARS-CoV-2, RNA, NAAT (NEGATIVE) 03/04/22 03/04/22 03/04/22 Range/Units 05:43 05:43 05:43 WBC 3.77 L (4.8-10.8) K/ul RBC 4.45 L (4.63-6.08) M/uL Hgb 9.0 L (14.0-18.0) g/dl Hct 28.7 L (40.1-51.0) % MCV 64.5 L (80.0-100.0) fL MCH 20.2 L (25.0-34.0) pg MCHC 31.4 L (32.0-36.0) g/dL RDW Std Deviation 54.4 H (36.4-46.3) fL RDW Coeff of Jt 24.5 H (11.5-14.5) % Plt Count 155 (130-400) K/uL Neutrophils % (Manual) % Lymphocytes % (Manual) % Monocytes % (Manual) % Eosinophils % (Manual) % Basophils % (Manual) % Neutrophils # (Manual) (1.4-6.5) K/uL Total Absolute Neuts (1.4-6.5) K/uL Lymphocytes # (Manual) (1.2-3.4) K/uL Total Abs Lymphocytes (1.2-3.4) K/uL Monocytes # (Manual) (0.24-0.82) K/uL Eosinophils # (Manual) (0-0.50) K/uL Basophils # (Manual) (0-0.2) K/uL Large Granular Lymphs % # Lrg Granular Lymphs K/uL Polychromasia Hypochromasia Microcytosis Target Cells PT 15.0 H (9.0-12.0) Seconds INR 1.4 H (0.9-1.1) Sodium 140 (136-145) mmol/L Potassium 3.0 L (3.5-5.1) mmol/L Chloride 108 H (98-107) mmol/L Carbon Dioxide 26 (21-32) mmol/L Anion Gap 6 (3-11) BUN 7 (6-23) mg/dl Creatinine 0.69 (0.6-1.4) mg/dl Est Cr Clr Drug Dosing 138.2 Est GFR ( Amer) 112.3 ml/min Est GFR (Non-Af Amer) 96.9 ml/min BUN/Creatinine Ratio 10.1 (10-20) Glucose 100 H (70-99(Fasting)) mg/dl POC Glucose (70-99) mg/dl Calcium 7.9 L (8.5-10.1) mg/dl Phosphorus (2.5-4.9) mg/dl Magnesium 1.6 L (1.7-2.4) mg/dl Total Bilirubin 0.9 (0.2-1.0) mg/dl AST 57 H (13-39) U/L ALT 36 (7-52) U/L Alkaline Phosphatase 257 H (34-104) U/L Total Protein 5.8 L (6.0-8.3) gm/dl Albumin 2.4 L (3.4-5.0) gm/dl Globulin 3.4 (2.5-4.0) gm/dl Albumin/Globulin Ratio 0.7 L (0.9-2) Urine Color Urine Appearance (Clear) Urine pH (4.5-7.5) Ur Specific [place] (1.000-1.030) Urine Protein (Negative) Urine Glucose (UA) (Negative) Urine Ketones (Negative) Urine Blood (Negative) Urine Nitrite (Negative) Urine Bilirubin (Negative) Urine Urobilinogen (Negative) Ur Leukocyte Esterase (Negative) Urine WBC (Auto) (0-5) /hpf Urine RBC (Auto) (0-4) /hpf U Hyaline Cast (Auto) (0-5) /lpf U Epithel Cells (Auto) (0-5) /lpf Urine Bacteria (Auto) (Negative) Hepatitis C Ab (EIA) Hep C Ab Signal/Cutoff SARS-CoV-2, RNA, NAAT (NEGATIVE) 03/03/22 03/03/22 03/03/22 Range/Units 22:00 21:02 16:33 WBC (4.8-10.8) K/ul RBC (4.63-6.08) M/uL Hgb (14.0-18.0) g/dl Hct (40.1-51.0) % MCV (80.0-100.0) fL MCH (25.0-34.0) pg MCHC (32.0-36.0) g/dL RDW Std Deviation (36.4-46.3) fL RDW Coeff of Jt (11.5-14.5) % Plt Count (130-400) K/uL Neutrophils % (Manual) % Lymphocytes % (Manual) % Monocytes % (Manual) % Eosinophils % (Manual) % Basophils % (Manual) % Neutrophils # (Manual) (1.4-6.5) K/uL Total Absolute Neuts (1.4-6.5) K/uL Lymphocytes # (Manual) (1.2-3.4) K/uL Total Abs Lymphocytes (1.2-3.4) K/uL Monocytes # (Manual) (0.24-0.82) K/uL Eosinophils # (Manual) (0-0.50) K/uL Basophils # (Manual) (0-0.2) K/uL Large Granular Lymphs % # Lrg Granular Lymphs K/uL Polychromasia Hypochromasia Microcytosis Target Cells PT (9.0-12.0) Seconds INR (0.9-1.1) Sodium (136-145) mmol/L Potassium (3.5-5.1) mmol/L Chloride (98-107) mmol/L Carbon Dioxide (21-32) mmol/L Anion Gap (3-11) BUN (6-23) mg/dl Creatinine (0.6-1.4) mg/dl Est Cr Clr Drug Dosing Est GFR ( Amer) ml/min Est GFR (Non-Af Amer) ml/min BUN/Creatinine Ratio (10-20) Glucose (70-99(Fasting)) mg/dl POC Glucose 74 (70-99) mg/dl Calcium (8.5-10.1) mg/dl Phosphorus 2.3 L (2.5-4.9) mg/dl Magnesium (1.7-2.4) mg/dl Total Bilirubin (0.2-1.0) mg/dl AST (13-39) U/L ALT (7-52) U/L Alkaline Phosphatase (34-104) U/L Total Protein (6.0-8.3) gm/dl Albumin (3.4-5.0) gm/dl Globulin (2.5-4.0) gm/dl Albumin/Globulin Ratio (0.9-2) Urine Color Yellow Urine Appearance Clear (Clear) Urine pH 8.0 H (4.5-7.5) Ur Specific [place] 1.005 (1.000-1.030) Urine Protein Negative (Negative) Urine Glucose (UA) Negative (Negative) Urine Ketones Negative (Negative) Urine Blood Negative (Negative) Urine Nitrite Negative (Negative) Urine Bilirubin Negative (Negative) Urine Urobilinogen Negative (Negative) Ur Leukocyte Esterase 1+ H (Negative) Urine WBC (Auto) 5-10 H (0-5) /hpf Urine RBC (Auto) 0-4 (0-4) /hpf U Hyaline Cast (Auto) 0 (0-5) /lpf U Epithel Cells (Auto) 5-10 H (0-5) /lpf Urine Bacteria (Auto) Negative (Negative) Hepatitis C Ab (EIA) Hep C Ab Signal/Cutoff SARS-CoV-2, RNA, NAAT (NEGATIVE) 03/03/22 03/03/22 03/03/22 Range/Units 16:33 16:33 16:33 WBC 4.58 L (4.8-10.8) K/ul RBC 4.83 (4.63-6.08) M/uL Hgb 9.7 L (14.0-18.0) g/dl Hct 30.7 L (40.1-51.0) % MCV 63.6 L (80.0-100.0) fL MCH 20.1 L (25.0-34.0) pg MCHC 31.6 L (32.0-36.0) g/dL RDW Std Deviation 54.7 H (36.4-46.3) fL RDW Coeff of Jt 25.3 H (11.5-14.5) % Plt Count 179 (130-400) K/uL Neutrophils % (Manual) 52 % Lymphocytes % (Manual) 17 % Monocytes % (Manual) 12 % Eosinophils % (Manual) 3 % Basophils % (Manual) 1 % Neutrophils # (Manual) 2.38 (1.4-6.5) K/uL Total Absolute Neuts 2.38 (1.4-6.5) K/uL Lymphocytes # (Manual) 0.78 L (1.2-3.4) K/uL Total Abs Lymphocytes 1.51 (1.2-3.4) K/uL Monocytes # (Manual) 0.55 (0.24-0.82) K/uL Eosinophils # (Manual) 0.14 (0-0.50) K/uL Basophils # (Manual) 0.05 (0-0.2) K/uL Large Granular Lymphs 16 % # Lrg Granular Lymphs 0.73 K/uL Polychromasia 1+ Hypochromasia Present Microcytosis Present Target Cells 2+ PT 15.1 H (9.0-12.0) Seconds INR 1.4 H (0.9-1.1) Sodium 141 (136-145) mmol/L Potassium 3.2 L (3.5-5.1) mmol/L Chloride 107 (98-107) mmol/L Carbon Dioxide 30 (21-32) mmol/L Anion Gap 4 (3-11) BUN 8 (6-23) mg/dl Creatinine 0.76 (0.6-1.4) mg/dl Est Cr Clr Drug Dosing Not Reportable Est GFR ( Amer) 107.9 ml/min Est GFR (Non-Af Amer) 93.1 ml/min BUN/Creatinine Ratio 10.5 (10-20) Glucose 76 (70-99(Fasting)) mg/dl POC Glucose (70-99) mg/dl Calcium 8.3 L (8.5-10.1) mg/dl Phosphorus (2.5-4.9) mg/dl Magnesium 1.6 L (1.7-2.4) mg/dl Total Bilirubin 1.1 H (0.2-1.0) mg/dl AST 58 H (13-39) U/L ALT 39 (7-52) U/L Alkaline Phosphatase 275 H (34-104) U/L Total Protein 6.3 (6.0-8.3) gm/dl Albumin 2.6 L (3.4-5.0) gm/dl Globulin 3.7 (2.5-4.0) gm/dl Albumin/Globulin Ratio 0.7 L (0.9-2) Urine Color Urine Appearance (Clear) Urine pH (4.5-7.5) Ur Specific [place] (1.000-1.030) Urine Protein (Negative) Urine Glucose (UA) (Negative) Urine Ketones (Negative) Urine Blood (Negative) Urine Nitrite (Negative) Urine Bilirubin (Negative) Urine Urobilinogen (Negative) Ur Leukocyte Esterase (Negative) Urine WBC (Auto) (0-5) /hpf Urine RBC (Auto) (0-4) /hpf U Hyaline Cast (Auto) (0-5) /lpf U Epithel Cells (Auto) (0-5) /lpf Urine Bacteria (Auto) (Negative) Hepatitis C Ab (EIA) Hep C Ab Signal/Cutoff SARS-CoV-2, RNA, NAAT (NEGATIVE) 03/03/22 Range/Units 15:54 WBC (4.8-10.8) K/ul RBC (4.63-6.08) M/uL Hgb (14.0-18.0) g/dl Hct (40.1-51.0) % MCV (80.0-100.0) fL MCH (25.0-34.0) pg MCHC (32.0-36.0) g/dL RDW Std Deviation (36.4-46.3) fL RDW Coeff of Jt (11.5-14.5) % Plt Count (130-400) K/uL Neutrophils % (Manual) % Lymphocytes % (Manual) % Monocytes % (Manual) % Eosinophils % (Manual) % Basophils % (Manual) % Neutrophils # (Manual) (1.4-6.5) K/uL Total Absolute Neuts (1.4-6.5) K/uL Lymphocytes # (Manual) (1.2-3.4) K/uL Total Abs Lymphocytes (1.2-3.4) K/uL Monocytes # (Manual) (0.24-0.82) K/uL Eosinophils # (Manual) (0-0.50) K/uL Basophils # (Manual) (0-0.2) K/uL Large Granular Lymphs % # Lrg Granular Lymphs K/uL Polychromasia Hypochromasia Microcytosis Target Cells PT (9.0-12.0) Seconds INR (0.9-1.1) Sodium (136-145) mmol/L Potassium (3.5-5.1) mmol/L Chloride (98-107) mmol/L Carbon Dioxide (21-32) mmol/L Anion Gap (3-11) BUN (6-23) mg/dl Creatinine (0.6-1.4) mg/dl Est Cr Clr Drug Dosing Est GFR ( Amer) ml/min Est GFR (Non-Af Amer) ml/min BUN/Creatinine Ratio (10-20) Glucose (70-99(Fasting)) mg/dl POC Glucose (70-99) mg/dl Calcium (8.5-10.1) mg/dl Phosphorus (2.5-4.9) mg/dl Magnesium (1.7-2.4) mg/dl Total Bilirubin (0.2-1.0) mg/dl AST (13-39) U/L ALT (7-52) U/L Alkaline Phosphatase (34-104) U/L Total Protein (6.0-8.3) gm/dl Albumin (3.4-5.0) gm/dl Globulin (2.5-4.0) gm/dl Albumin/Globulin Ratio (0.9-2) Urine Color Urine Appearance (Clear) Urine pH (4.5-7.5) Ur Specific [place] (1.000-1.030) Urine Protein (Negative) Urine Glucose (UA) (Negative) Urine Ketones (Negative) Urine Blood (Negative) Urine Nitrite (Negative) Urine Bilirubin (Negative) Urine Urobilinogen (Negative) Ur Leukocyte Esterase (Negative) Urine WBC (Auto) (0-5) /hpf Urine RBC (Auto) (0-4) /hpf U Hyaline Cast (Auto) (0-5) /lpf U Epithel Cells (Auto) (0-5) /lpf Urine Bacteria (Auto) (Negative) Hepatitis C Ab (EIA) Hep C Ab Signal/Cutoff SARS-CoV-2, RNA, NAAT NEGATIVE (NEGATIVE) PG Care Time/CCT Total # of Minutes Spent Total Time Spent with Patient: Total time spent is greater than 50% in coordination of care (as documented) at patient's floor/unit and/or counseling patient: Coding Level of Care Code 37356 Subseq Hosp Care Lvl 2 Diagnoses Falls W19.XXXA Suprapatellar effusion of knee M25.469 Subtherapeutic international normalized ratio (INR) R79.1 Chronic systolic CHF (congestive heart failure) I50.22 Anemia D64.9 Depression F32.9 PAF (paroxysmal atrial fibrillation) I48.0 Type 2 diabetes mellitus E11.9 Nocturnal hypoxemia G47.34 Aldosteronism E26.9 1st degree AV block I44.0 CAD (coronary artery disease) I25.10 Electrolyte abnormality E87.8 Severe obstructive sleep apnea G47.33 Infection of lumbar spine M86.9 Hyperlipidemia E78.5 Dysuria R30.0
[2022-03-04] MEDS: TAMSULOSIN HCL 0.4 MG CAP PO SCH (20:52)
[2022-03-04] MEDS: DUTASTERIDE PO SCH (20:52)
[2022-03-04] MEDS: ISOSORBIDE MONO EXTENDED REL 60 MG TABCR PO SCH (20:53)
[2022-03-04] MEDS: EZETIMIBE 10 MG TABLET PO SCH (20:55)
[2022-03-04] MEDS: WARFARIN SOD 7.5 MG TAB PO SCH (21:28)
[2022-03-05 06:27] LABS: INR 1.9 (0.9-1.1); Prothrombin Time 19.2 Seconds (9.0-12.0)
[2022-03-05 06:30] LABS: Mean Corpuscular Hgb Conc 32.1 g/dL (32.0-36.0); Mean Corpuscular Volume 62.1 fL (80.0-100.0); RDW Coefficient of Variation 24.7 % (11.5-14.5); RDW Standard Deviation 51.9 fL (36.4-46.3); Red Blood Count 4.51 M/uL (4.63-6.08); White Blood Count 4.54 K/ul (4.8-10.8)
[2022-03-05 06:38] LABS: Platelet Count 148 K/uL (130-400)
[2022-03-05 06:57] LABS: Albumin Globulin Ratio 0.7 (0.9-2); Albumin Level 2.3 gm/dl (3.4-5.0); BUN Creatinine Ratio 8.1 (10-20); Bilirubin,Total 0.9 mg/dl (0.2-1.0); Calcium 7.6 mg/dl (8.5-10.1); Creatinine Clr Calc Pharmacy 128.8 ml/min; Est GFR (African American) 109.1 ml/min; Est GFR (Non-African American) 94.1 ml/min; Globulin 3.3 gm/dl (2.5-4.0); Magnesium 1.5 mg/dl (1.7-2.4); Potassium 2.9 mmol/L (3.5-5.1); Total Protein 5.6 gm/dl (6.0-8.3)
[2022-03-05 07:04] LABS: Ferritin 17.9 ng/ml (8-388)
[2022-03-05 07:07] LABS: Folate (Folic Acid) 15.99 ng/ml (>5.38)
[2022-03-05 07:08] LABS: Vitamin B12 > 1500 pg/ml (180-914)
[2022-03-05] MEDS: DOXYCYCLINE HYCLATE 100 MG CAP PO SCH ×2 (08:04→17:35)
[2022-03-05] MEDS: FUROSEMIDE 80 MG TAB PO SCH (08:04)
[2022-03-05] MEDS: LACTULOSE SYRUP 30 GM/45 ML UDP PO SCH ×2 (08:04→19:30)
[2022-03-05] MEDS: ZINC SULFATE 220 MG CAPSULE PO SCH (08:05)
[2022-03-05] MEDS: lisinopril 20 MG TAB PO SCH (08:05)
[2022-03-05] MEDS: rifAXIMin 550 MG TABLET PO SCH ×3 (08:05→19:27)
[2022-03-05] MEDS: PROPRANOLOL HCL 10 MG TAB PO SCH ×3 (08:05→19:28)
[2022-03-05] MEDS: VITAMIN B COMPLEX TAB PO SCH (08:05)
[2022-03-05] MEDS: OMEGA-3 (PURIFIED FISH OIL) 1 GM CAP PO SCH ×2 (08:05→19:27)
[2022-03-05] MEDS: POT PHOSPHATE MONOBASIC W/ SOD TAB PO SCH ×4 (08:05→19:30)
[2022-03-05] MEDS: GABAPENTIN 300 MG CAP PO SCH ×3 (08:05→19:27)
[2022-03-05] MEDS: EPLERENONE PO SCH (08:05)
[2022-03-05] MEDS: DULoxetine HCL 60 MG CAP PO SCH (08:05)
[2022-03-05] MEDS: MULTIVITAMIN TAB PO SCH (08:05)
[2022-03-05] MEDS: PANTOprazole 40 MG TAB PO SCH ×2 (08:05→19:29)
[2022-03-05] MEDS: buPROPion SR 100 MG TABCR PO SCH (08:05)
[2022-03-05] MEDS: dilTIAZem ER 180 MG CAPCR PO SCH (08:05)
[2022-03-05 09:04] LABS: Iron 32 mcg/dl (35-175); Total Iron Binding Cap Calc 237 mcg/dl (250-450); Transferrin (FE) Percent Satur 14 % (20-50); Unsaturated Iron Binding Cap 205 mcg/dl (155-355)
[2022-03-05] MEDS: INSULIN ASPART PER UNIT SC SCH ×4 (09:09→21:13)
[2022-03-05] MEDS: LANTUS PER UNIT CHARGE SQ SCH (09:09)
[2022-03-05] MEDS: POTASSIUM CHLORIDE CRTAB 20 MEQ TABCR PO SCH ×2 (09:49→19:29)
[2022-03-05] MEDS: IRON SUCROSE 300 MG in SODIUM CHLORIDE 0.9% 250 ML IV SCH (09:49)
[2022-03-05] MEDS: MAGNESIUM SULFATE / D5W 1 GM/100 ML BAG IV SCH ×3 (11:33→15:23)
[2022-03-05] MEDS: ISOSORBIDE MONO EXTENDED REL 60 MG TABCR PO SCH (19:26)
[2022-03-05] MEDS: EZETIMIBE 10 MG TABLET PO SCH (19:27)
[2022-03-05] MEDS: TAMSULOSIN HCL 0.4 MG CAP PO SCH (19:28)
[2022-03-05] MEDS: DUTASTERIDE PO SCH (19:31)
--- NOTE | 2022-03-05 19:37 | Hospitalist Progress Note ---
Date of Service March 05, 2022 Assessment & Plan (1) Falls: Plan: Presents with multiple falls secondary to chronic right knee pain and severe arthritis causing need to give out -Has been having multiple mechanical falls since last admission, of which, PT/OT had recommended acute rehab stay but patient chose home PT/OT -Patient sustained lacerations to the left knee and foot also with right knee pain/swelling acute on chronic-wound care consult appreciated -PT/OT consults placed, patient and are agreeable to inpatient rehab -Consulted orthopedics for right knee-needs either hinged prosthesis surgery or right knee fusion-patient declines surgery at this time but he and his know that it is an option in the future and would have to be done at a tertiary care center. -does have multiple comorbidities which would make surgery more high risk -Plan for rehab placement-he will attempt to get stronger at rehab and if not improving, will consider surgery in the future (2) Suprapatellar effusion of knee: Plan: Chronic and longstanding issue with large effusion on the right and severe arthritis of the right knee Aspirated by orthopedics a couple of months ago with quick return and no relief with intra-articular steroid injection Orthopedic consult appreciated here-as above Recommends rehab for strengthening No aspiration at this time (3) Subtherapeutic international normalized ratio (INR): Plan: -INR remains subtherapeutic today but is improved at 1.9 -Also eating green-leafy vegetables consistently which could be contributing -Normally takes Warfarin at 7.5 mg daily except for Fridays when he takes 5 mg -Received 10 mg on the day of admission and has since resumed his usual dosing. -No need for bridging Lovenox as he is currently in a sinus rhythm -Check INR daily -Patient should be encouraged to eat a consistent amount of green leafy vegetables to assist with stable INR (4) Chronic systolic CHF (congestive heart failure): Plan: No acute issues, with chronic peripheral edema -Continue home lasix, Imdur, propranolol, lisinopril, and eplerenone (5) Anemia: Plan: Does have a history of thalassemia he believes-severely microcytic and longstanding although has worsened in the last 4 months-previous baseline hemoglobin around 11 and now down to 9 stable from yesterday - iron studies show iron deficiency with a transferrin saturation mildly low at 14% but overall more consistent with 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 with superimposed iron deficiency - B12, folate both normal -Give IV Venofer 300 Mg daily x3 doses Had recent EGD in 01/2022 with grade 3 esophageal varices and portal gastropathy Colonoscopy many years ago No obvious bleeding that he has had from anywhere (6) Depression: Plan: No acute issues -Continue home bupropion (7) PAF (paroxysmal atrial fibrillation): Plan: Is in a sinus rhythm on ECG on admission and by exam -Continue home diltiazem, propranolol -Continue Coumadin (8) Type 2 diabetes mellitus: Plan: Hemoglobin A1c 6.5% in [id number] -Continue basal bolus insulin -Accu checks ACHS (9) Nocturnal hypoxemia: Plan: -Patient hasn't been using at home Cpap due to losing a piece -Will order HS Cpap while admitted (10) Aldosteronism: Plan: -Continue Eplerenone (11) 1st degree AV block: Plan: -AR interval increased at 232, patient asymptomatic -Will continue Diltiazem for now as he has a history PAF to prevent RVR (12) CAD (coronary artery disease): Plan: With a history of redo CABG in 2010 No acute issues Not on aspirin presumably due to being on Coumadin and with a history of cirrhosis and esophageal varices and portal gastropathy-would avoid aspirin Continue propranolol, isosorbide, lisinopril, warfarin (13) Electrolyte abnormality: Plan: Magnesium and potassium again are low today -continue to replace with IV magnesium with 3 g today and oral potassium chloride 40 mill equivalents p.o. 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 -Continue BID Doxycycline 100 mg PO for chronic suppression (16) Hyperlipidemia: Plan: -Continue Zetia (17) Dysuria: Plan: -Patient states he has had some recent dysuria, was treated for uncomplicated UTI last admission -Is afebrile and no leukocytosis -UA here without evidence of infection Continue home dutasteride and tamsulosin Plan Disposition-medically stable for discharge-awaiting rehab placement-insurance authorization submitted at [facility] and we should know by tomorrow Admission and Anticipated Discharge Date Admission Date: March 03, 2022 Subjective Patient denies pain in the knee. He did get up with PT OT today and had too much instability in the knee to walk more than a few steps. Denies chest pains or shortness of breath, no nausea or vomiting. He is eating well. He is moving his bowels. Discussed his care with his at the bedside. Review of Systems Review of Systems: All systems reviewed & are unremarkable except as noted in HPI & below Physical Exam Constitutional: WD/WN, vitals as above + obese Neck: trachea midline, no thyromegaly Respiratory: normal respiratory effort, lungs clear to auscultation Cardiovascular: Rate/Rhythm: regular rate and regular rhythm Heart Sounds: no murmur Extremities: + edema (2+ pitting edema of the legs bilaterally to the thighs) Chest (Breasts): Chest: normal inspection of chest Gastrointestinal (Abdomen): normal bowel sounds, soft, nontender, no hepatosplenomegaly Musculoskeletal: Extremities: + extremities abnormal to inspection (Right knee large effusion, no erythema), no cyanosis and no clubbing Skin: no rashes, warm and dry Trauma: + abrasion (Left knee superficial abrasion) and + laceration (Left fourth and fifth toe webspace) Neurologic: moves all extremities and awake; no focal motor deficits Psychiatric: A+Ox3, euthymic affect Results & Data Results & Data ([facility]) Vital Signs (Past 12 Hours) Vital Signs Temp Pulse Resp BP Pulse Ox O2 Del Method 03/05/22 15:47 36.5 C 56 L 20 120/60 96 Room Air 03/05/22 11:30 36.5 C 63 16 108/60 97 Room Air 03/05/22 10:17 36.5 C 63 14 141/78 H 96 Room Air 03/05/22 09:49 36.7 C 59 L 16 124/72 97 Room Air Laboratory Results 03/05/22 03/05/22 03/05/22 Range/Units 17:03 17:01 12:09 WBC (4.8-10.8) K/ul RBC (4.63-6.08) M/uL Hgb (14.0-18.0) g/dl Hct (40.1-51.0) % MCV (80.0-100.0) fL MCH (25.0-34.0) pg MCHC (32.0-36.0) g/dL RDW Std Deviation (36.4-46.3) fL RDW Coeff of Jt (11.5-14.5) % Plt Count (130-400) K/uL PT (9.0-12.0) Seconds INR (0.9-1.1) Sodium (136-145) mmol/L Potassium (3.5-5.1) mmol/L Chloride (98-107) mmol/L Carbon Dioxide (21-32) mmol/L Anion Gap (3-11) BUN (6-23) mg/dl Creatinine (0.6-1.4) mg/dl Est Cr Clr Drug Dosing ml/min Est GFR ( Amer) ml/min Est GFR (Non-Af Amer) ml/min BUN/Creatinine Ratio (10-20) Glucose (70-99(Fasting)) mg/dl POC Glucose 70 62 L* 157 H (70-99) mg/dl Calcium (8.5-10.1) mg/dl Magnesium (1.7-2.4) mg/dl Iron (35-175) mcg/dl TIBC (250-450) mcg/dl Unsaturated IBC (155-355) mcg/dl Transferrin % Sat (20-50) % Ferritin (8-388) ng/ml Total Bilirubin (0.2-1.0) mg/dl AST (13-39) U/L ALT (7-52) U/L Alkaline Phosphatase (34-104) U/L Total Protein (6.0-8.3) gm/dl Albumin (3.4-5.0) gm/dl Globulin (2.5-4.0) gm/dl Albumin/Globulin Ratio (0.9-2) Vitamin B12 (180-914) pg/ml Folate (>5.38) ng/ml Hepatitis C Ab (EIA) (NON-REACTIVE) Hep C Ab Signal/Cutoff (<1.00) 03/05/22 03/05/22 03/05/22 Range/Units 08:24 05:39 05:39 WBC (4.8-10.8) K/ul RBC (4.63-6.08) M/uL Hgb (14.0-18.0) g/dl Hct (40.1-51.0) % MCV (80.0-100.0) fL MCH (25.0-34.0) pg MCHC (32.0-36.0) g/dL RDW Std Deviation (36.4-46.3) fL RDW Coeff of Jt (11.5-14.5) % Plt Count (130-400) K/uL PT (9.0-12.0) Seconds INR (0.9-1.1) Sodium (136-145) mmol/L Potassium (3.5-5.1) mmol/L Chloride (98-107) mmol/L Carbon Dioxide (21-32) mmol/L Anion Gap (3-11) BUN (6-23) mg/dl Creatinine (0.6-1.4) mg/dl Est Cr Clr Drug Dosing ml/min Est GFR ( Amer) ml/min Est GFR (Non-Af Amer) ml/min BUN/Creatinine Ratio (10-20) Glucose (70-99(Fasting)) mg/dl POC Glucose 101 H (70-99) mg/dl Calcium (8.5-10.1) mg/dl Magnesium (1.7-2.4) mg/dl Iron 32 L (35-175) mcg/dl TIBC 237 L (250-450) mcg/dl Unsaturated IBC 205 (155-355) mcg/dl Transferrin % Sat 14 L (20-50) % Ferritin (8-388) ng/ml Total Bilirubin (0.2-1.0) mg/dl AST (13-39) U/L ALT (7-52) U/L Alkaline Phosphatase (34-104) U/L Total Protein (6.0-8.3) gm/dl Albumin (3.4-5.0) gm/dl Globulin (2.5-4.0) gm/dl Albumin/Globulin Ratio (0.9-2) Vitamin B12 > 1500 H (180-914) pg/ml Folate 15.99 (>5.38) ng/ml Hepatitis C Ab (EIA) (NON-REACTIVE) Hep C Ab Signal/Cutoff (<1.00) 03/05/22 03/05/22 03/05/22 Range/Units 05:39 05:39 05:39 WBC 4.54 L (4.8-10.8) K/ul RBC 4.51 L (4.63-6.08) M/uL Hgb 9.0 L (14.0-18.0) g/dl Hct 28.0 L (40.1-51.0) % MCV 62.1 L (80.0-100.0) fL MCH 20.0 L (25.0-34.0) pg MCHC 32.1 (32.0-36.0) g/dL RDW Std Deviation 51.9 H (36.4-46.3) fL RDW Coeff of Jt 24.7 H (11.5-14.5) % Plt Count 148 (130-400) K/uL PT 19.2 H (9.0-12.0) Seconds INR 1.9 H (0.9-1.1) Sodium 139 (136-145) mmol/L Potassium 2.9 L (3.5-5.1) mmol/L Chloride 106 (98-107) mmol/L Carbon Dioxide 28 (21-32) mmol/L Anion Gap 5 (3-11) BUN 6 (6-23) mg/dl Creatinine 0.74 (0.6-1.4) mg/dl Est Cr Clr Drug Dosing 128.8 ml/min Est GFR ( Amer) 109.1 ml/min Est GFR (Non-Af Amer) 94.1 ml/min BUN/Creatinine Ratio 8.1 L (10-20) Glucose 64 L (70-99(Fasting)) mg/dl POC Glucose (70-99) mg/dl Calcium 7.6 L (8.5-10.1) mg/dl Magnesium 1.5 L (1.7-2.4) mg/dl Iron (35-175) mcg/dl TIBC (250-450) mcg/dl Unsaturated IBC (155-355) mcg/dl Transferrin % Sat (20-50) % Ferritin 17.9 (8-388) ng/ml Total Bilirubin 0.9 (0.2-1.0) mg/dl AST 59 H (13-39) U/L ALT 36 (7-52) U/L Alkaline Phosphatase 250 H (34-104) U/L Total Protein 5.6 L (6.0-8.3) gm/dl Albumin 2.3 L (3.4-5.0) gm/dl Globulin 3.3 (2.5-4.0) gm/dl Albumin/Globulin Ratio 0.7 L (0.9-2) Vitamin B12 (180-914) pg/ml Folate (>5.38) ng/ml Hepatitis C Ab (EIA) (NON-REACTIVE) Hep C Ab Signal/Cutoff (<1.00) 03/04/22 03/04/22 Range/Units 20:45 05:43 WBC (4.8-10.8) K/ul RBC (4.63-6.08) M/uL Hgb (14.0-18.0) g/dl Hct (40.1-51.0) % MCV (80.0-100.0) fL MCH (25.0-34.0) pg MCHC (32.0-36.0) g/dL RDW Std Deviation (36.4-46.3) fL RDW Coeff of Jt (11.5-14.5) % Plt Count (130-400) K/uL PT (9.0-12.0) Seconds INR (0.9-1.1) Sodium (136-145) mmol/L Potassium (3.5-5.1) mmol/L Chloride (98-107) mmol/L Carbon Dioxide (21-32) mmol/L Anion Gap (3-11) BUN (6-23) mg/dl Creatinine (0.6-1.4) mg/dl Est Cr Clr Drug Dosing ml/min Est GFR ( Amer) ml/min Est GFR (Non-Af Amer) ml/min BUN/Creatinine Ratio (10-20) Glucose (70-99(Fasting)) mg/dl POC Glucose 105 H (70-99) mg/dl Calcium (8.5-10.1) mg/dl Magnesium (1.7-2.4) mg/dl Iron (35-175) mcg/dl TIBC (250-450) mcg/dl Unsaturated IBC (155-355) mcg/dl Transferrin % Sat (20-50) % Ferritin (8-388) ng/ml Total Bilirubin (0.2-1.0) mg/dl AST (13-39) U/L ALT (7-52) U/L Alkaline Phosphatase (34-104) U/L Total Protein (6.0-8.3) gm/dl Albumin (3.4-5.0) gm/dl Globulin (2.5-4.0) gm/dl Albumin/Globulin Ratio (0.9-2) Vitamin B12 (180-914) pg/ml Folate (>5.38) ng/ml Hepatitis C Ab (EIA) NON-REACTIVE (NON-REACTIVE) Hep C Ab Signal/Cutoff 0.21 (<1.00) PG Care Time/CCT Total # of Minutes Spent Total Time Spent with Patient: Total time spent is greater than 50% in coordination of care (as documented) at patient's floor/unit and/or counseling patient: Coding Level of Care Code 07911 Subseq Hosp Care Lvl 2 Diagnoses Falls W19.XXXA Suprapatellar effusion of knee M25.469 Subtherapeutic international normalized ratio (INR) R79.1 Chronic systolic CHF (congestive heart failure) I50.22 Anemia D64.9 Depression F32.9 PAF (paroxysmal atrial fibrillation) I48.0 Type 2 diabetes mellitus E11.9 Nocturnal hypoxemia G47.34 Aldosteronism E26.9 1st degree AV block I44.0 CAD (coronary artery disease) I25.10 Electrolyte abnormality E87.8 Severe obstructive sleep apnea G47.33 Infection of lumbar spine M86.9 Hyperlipidemia E78.5 Dysuria R30.0
[2022-03-05] MEDS ORDERED: WARFARIN SOD 5 MG TAB PO SCH (21:00)
--- NOTE | 2022-03-05 21:51 | Communication Note ---
Date of Service: March 05, 2022 Messaged by nursing of low bsgs 62, 70 today. I reviewed his chart and have decreased his insulin orders; changing aspart cf 20->40. cr 8->20. discontinue lantus 20 BID. Lantus 8u tomorrow night (home regimen). His last a1c was 6.5 in October; repeating tomorrow AM.
[2022-03-06 06:04] LABS: INR 2.5 (0.9-1.1); Prothrombin Time 25.2 Seconds (9.0-12.0)
[2022-03-06] MEDS: LANTUS PER UNIT CHARGE SQ SCH ×2 (07:23→21:42)
[2022-03-06 07:27] LABS: Calcium 7.9 mg/dl (8.5-10.1); Creatinine Clr Calc Pharmacy 127.1 ml/min; Est GFR (African American) 108.5 ml/min; Est GFR (Non-African American) 93.6 ml/min; Magnesium 1.7 mg/dl (1.7-2.4); Phosphorus 2.8 mg/dl (2.5-4.9); Potassium 3.4 mmol/L (3.5-5.1)
[2022-03-06] MEDS: DOXYCYCLINE HYCLATE 100 MG CAP PO SCH ×2 (08:51→17:54)
[2022-03-06] MEDS: POTASSIUM CHLORIDE CRTAB 20 MEQ TABCR PO SCH ×2 (08:51→21:20)
[2022-03-06] MEDS: OMEGA-3 (PURIFIED FISH OIL) 1 GM CAP PO SCH ×2 (08:51→21:20)
[2022-03-06] MEDS: dilTIAZem ER 180 MG CAPCR PO SCH (08:51)
[2022-03-06] MEDS: rifAXIMin 550 MG TABLET PO SCH ×3 (08:51→21:20)
[2022-03-06] MEDS: DULoxetine HCL 60 MG CAP PO SCH (08:51)
[2022-03-06] MEDS: PROPRANOLOL HCL 10 MG TAB PO SCH ×3 (08:51→21:20)
[2022-03-06] MEDS: PANTOprazole 40 MG TAB PO SCH ×2 (08:51→21:20)
[2022-03-06] MEDS: FUROSEMIDE 80 MG TAB PO SCH (08:51)
[2022-03-06] MEDS: GABAPENTIN 300 MG CAP PO SCH ×3 (08:51→21:20)
[2022-03-06] MEDS: MULTIVITAMIN TAB PO SCH (08:51)
[2022-03-06] MEDS: lisinopril 20 MG TAB PO SCH (08:51)
[2022-03-06] MEDS: POT PHOSPHATE MONOBASIC W/ SOD TAB PO SCH ×4 (08:51→21:20)
[2022-03-06] MEDS: ZINC SULFATE 220 MG CAPSULE PO SCH (08:52)
[2022-03-06] MEDS: EPLERENONE PO SCH (08:52)
[2022-03-06] MEDS: buPROPion SR 100 MG TABCR PO SCH (08:52)
[2022-03-06] MEDS: LACTULOSE SYRUP 30 GM/45 ML UDP PO SCH (08:52)
[2022-03-06] MEDS: VITAMIN B COMPLEX TAB PO SCH (08:52)
[2022-03-06] MEDS: INSULIN ASPART PER UNIT SC SCH ×4 (08:57→21:30)
[2022-03-06] MEDS: IRON SUCROSE 300 MG in SODIUM CHLORIDE 0.9% 250 ML IV SCH (09:02)
[2022-03-06] MEDS ORDERED: MAGNESIUM SULFATE / D5W 1 GM/100 ML BAG IV ONE (09:15)
[2022-03-06 09:33] LABS: Estimated Average Glucose 143 mg/dl; Hemoglobin A1C 6.6 % (4.5-5.6)
--- NOTE | 2022-03-06 18:01 | Hospitalist Progress Note ---
Date of Service March 06, 2022 Assessment & Plan (1) Falls: Plan: Presents with multiple falls secondary to chronic right knee pain and severe arthritis causing need to give out -Has been having multiple mechanical falls since last admission, of which, PT/OT had recommended acute rehab stay but patient chose home PT/OT -Patient sustained lacerations to the left knee and foot also with right knee pain/swelling acute on chronic-wound care consult appreciated -PT/OT consults placed, patient and are agreeable to inpatient rehab -Consulted orthopedics for right knee-needs either hinged prosthesis surgery or right knee fusion-patient declines surgery at this time but he and his know that it is an option in the future and would have to be done at a tertiary care center. -does have multiple comorbidities which would make surgery more high risk -Plan for rehab placement-he will attempt to get stronger at rehab and if not improving, will consider surgery in the future (2) Suprapatellar effusion of knee: Plan: Chronic and longstanding issue with large effusion on the right and severe arthritis of the right knee Aspirated by orthopedics a couple of months ago with quick return and no relief with intra-articular steroid injection Orthopedic consult appreciated here-as above Recommends rehab for strengthening No aspiration at this time (3) Electrolyte abnormality: Plan: Magnesium and potassium again are low today, but improved from previous after many days of replacement -continue to replace with IV magnesium 1 g and oral potassium chloride 40 mill equivalents p.o. twice daily as well as oral potassium phosphorus 4 times a day Follow levels again in the morning With diarrhea now from lactulose-cutting lactulose down to once daily (4) Type 2 diabetes mellitus: Plan: Hemoglobin A1c 6.5% in [id number] Had some hypoglycemia on the evening of 03/05 His Lantus was reduced back to his home dose of 8 units at bedtime -Continue basal bolus insulin -Accu checks ACHS (5) Subtherapeutic international normalized ratio (INR): Plan: -INR finally now therapeutic at 2.5 -Had been eating green-leafy vegetables consistently which could be contributing -Normally takes Warfarin at 7.5 mg daily except for Fridays when he takes 5 mg -Received 10 mg on the day of admission and has since resumed his usual dosing. -Check INR daily -Patient should be encouraged to eat a consistent amount of green leafy vegetables to assist with stable INR (6) Chronic systolic CHF (congestive heart failure): Plan: No acute issues, with chronic peripheral edema -Continue home lasix, Imdur, propranolol, lisinopril, and eplerenone (7) Anemia: Plan: Does have a history of thalassemia he believes-severely microcytic and longstanding although has worsened in the last 4 months-previous baseline hemoglobin around 11 and now down to 9 stable from yesterday - iron studies show iron deficiency with a transferrin saturation mildly low at 14% but overall more consistent with 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 with superimposed iron deficiency - B12, folate both normal -Give IV Venofer 300 Mg daily x3 doses Had recent EGD in 01/2022 with grade 3 esophageal varices and portal gastropathy Colonoscopy many years ago No obvious bleeding that he has had from anywhere (8) Depression: Plan: No acute issues -Continue home bupropion (9) PAF (paroxysmal atrial fibrillation): Plan: Is in a sinus rhythm on ECG on admission and by exam -Continue home diltiazem, propranolol -Continue Coumadin (10) Nocturnal hypoxemia: Plan: -Patient hasn't been using at home Cpap due to losing a piece -Will order HS Cpap while admitted (11) Aldosteronism: Plan: -Continue Eplerenone (12) 1st degree AV block: Plan: -CT interval increased at 232, patient asymptomatic -Will continue Diltiazem for now as he has a history PAF to prevent RVR (13) CAD (coronary artery disease): Plan: With a history of redo CABG in 2010 No acute issues Not on aspirin presumably due to being on Coumadin and with a history of cirrhosis and esophageal varices and portal gastropathy-would avoid aspirin Continue propranolol, isosorbide, lisinopril, warfarin (14) Severe obstructive sleep apnea: Plan: CPAP at nighttime (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 -Continue BID Doxycycline 100 mg PO for chronic suppression (16) Hyperlipidemia: Plan: -Continue Zetia (17) Dysuria: Plan: -Patient states he has had some recent dysuria, was treated for uncomplicated UTI last admission -Is afebrile and no leukocytosis -UA here without evidence of infection Continue home dutasteride and tamsulosin (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 He is eating and drinking. He did have multiple loose stools this morning and asks for his lactulose dose to decrease to once daily. No chest pains or shortness of breath. Review of Systems Review of Systems: All systems reviewed & are unremarkable except as noted in HPI & below Physical Exam Constitutional: WD/WN, vitals as above + obese Neck: trachea midline, no thyromegaly Respiratory: normal respiratory effort, lungs clear to auscultation Cardiovascular: Rate/Rhythm: regular rate and regular rhythm Heart Sounds: no murmur Extremities: + edema (2+ pitting edema of the legs bilaterally to the thighs) Chest (Breasts): Chest: normal inspection of chest Gastrointestinal (Abdomen): normal bowel sounds, soft, nontender, no hepatosplenomegaly Musculoskeletal: Extremities: + extremities abnormal to inspection (Right knee large effusion, no erythema), no cyanosis and no clubbing Skin: no rashes, warm and dry Trauma: + abrasion (Left knee superficial abrasion) and + laceration (Left foot wounds not examined-dressed and not removed) Neurologic: moves all extremities and awake; no focal motor deficits Psychiatric: A+Ox3, euthymic affect Results & Data Results & Data ([facility]) Vital Signs (Past 12 Hours) Vital Signs Temp Pulse Resp BP Pulse Ox O2 Del Method 03/06/22 13:12 62 149/75 H 03/06/22 10:33 155/75 H 03/06/22 08:48 67 136/72 03/06/22 06:48 36.6 C 62 14 147/78 H 97 CPAP Laboratory Results 03/06/22 03/06/22 03/06/22 Range/Units 17:17 12:07 07:45 PT (9.0-12.0) Seconds INR (0.9-1.1) Sodium (136-145) mmol/L Potassium (3.5-5.1) mmol/L Chloride (98-107) mmol/L Carbon Dioxide (21-32) mmol/L Anion Gap (3-11) BUN (6-23) mg/dl Creatinine (0.6-1.4) mg/dl Est Cr Clr Drug Dosing ml/min Est GFR ( Amer) ml/min Est GFR (Non-Af Amer) ml/min BUN/Creatinine Ratio (10-20) Glucose (70-99(Fasting)) mg/dl POC Glucose 70 116 H 82 (70-99) mg/dl Estimat Average Glucose mg/dl Hemoglobin A1c (4.5-5.6) % Hgb A1c Pathologist Com Calcium (8.5-10.1) mg/dl Phosphorus (2.5-4.9) mg/dl Magnesium (1.7-2.4) mg/dl 03/06/22 03/06/22 03/06/22 Range/Units 05:30 05:30 05:30 PT 25.2 H (9.0-12.0) Seconds INR 2.5 H (0.9-1.1) Sodium 142 (136-145) mmol/L Potassium 3.4 L (3.5-5.1) mmol/L Chloride 108 H (98-107) mmol/L Carbon Dioxide 30 (21-32) mmol/L Anion Gap 4 (3-11) BUN 6 (6-23) mg/dl Creatinine 0.75 (0.6-1.4) mg/dl Est Cr Clr Drug Dosing 127.1 ml/min Est GFR ( Amer) 108.5 ml/min Est GFR (Non-Af Amer) 93.6 ml/min BUN/Creatinine Ratio 8.0 L (10-20) Glucose 81 (70-99(Fasting)) mg/dl POC Glucose (70-99) mg/dl Estimat Average Glucose 143 mg/dl Hemoglobin A1c 6.6 H (4.5-5.6) % Hgb A1c Pathologist Com Calcium 7.9 L (8.5-10.1) mg/dl Phosphorus 2.8 (2.5-4.9) mg/dl Magnesium 1.7 (1.7-2.4) mg/dl 03/05/22 Range/Units 20:40 PT (9.0-12.0) Seconds INR (0.9-1.1) Sodium (136-145) mmol/L Potassium (3.5-5.1) mmol/L Chloride (98-107) mmol/L Carbon Dioxide (21-32) mmol/L Anion Gap (3-11) BUN (6-23) mg/dl Creatinine (0.6-1.4) mg/dl Est Cr Clr Drug Dosing ml/min Est GFR ( Amer) ml/min Est GFR (Non-Af Amer) ml/min BUN/Creatinine Ratio (10-20) Glucose (70-99(Fasting)) mg/dl POC Glucose 92 (70-99) mg/dl Estimat Average Glucose mg/dl Hemoglobin A1c (4.5-5.6) % Hgb A1c Pathologist Com Calcium (8.5-10.1) mg/dl Phosphorus (2.5-4.9) mg/dl Magnesium (1.7-2.4) mg/dl PG Care Time/CCT Total # of Minutes Spent Total Time Spent with Patient: Total time spent is greater than 50% in coordination of care (as documented) at patient's floor/unit and/or counseling patient: Coding Level of Care Code 41048 Subseq Hosp Care Lvl 2 Diagnoses Falls W19.XXXA Suprapatellar effusion of knee M25.469 Electrolyte abnormality E87.8 Type 2 diabetes mellitus E11.9 Subtherapeutic international normalized ratio (INR) R79.1 Chronic systolic CHF (congestive heart failure) I50.22 Anemia D64.9 Depression F32.9 PAF (paroxysmal atrial fibrillation) I48.0 Nocturnal hypoxemia G47.34 Aldosteronism E26.9 1st degree AV block I44.0 CAD (coronary artery disease) I25.10 Severe obstructive sleep apnea G47.33 Infection of lumbar spine M86.9 Hyperlipidemia E78.5 Dysuria R30.0 Cirrhosis of liver not due to alcohol K74.60
[2022-03-06] MEDS: ISOSORBIDE MONO EXTENDED REL 60 MG TABCR PO SCH (21:20)
[2022-03-06] MEDS: DUTASTERIDE PO SCH (21:20)
[2022-03-06] MEDS: TAMSULOSIN HCL 0.4 MG CAP PO SCH (21:20)
[2022-03-06] MEDS: EZETIMIBE 10 MG TABLET PO SCH (21:20)
[2022-03-06] MEDS: WARFARIN SOD 7.5 MG TAB PO SCH (21:21)
[2022-03-07 06:29] LABS: INR 2.6 (0.9-1.1); Prothrombin Time 26.6 Seconds (9.0-12.0)
[2022-03-07 07:09] LABS: Albumin Globulin Ratio 0.6 (0.9-2); Albumin Level 2.2 gm/dl (3.4-5.0); BUN Creatinine Ratio 9.2 (10-20); Bilirubin,Total 0.7 mg/dl (0.2-1.0); Calcium 7.8 mg/dl (8.5-10.1); Creatinine Clr Calc Pharmacy 146.7 ml/min; Est GFR (African American) 115.1 ml/min; Est GFR (Non-African American) 99.3 ml/min; Globulin 3.4 gm/dl (2.5-4.0); Magnesium 1.5 mg/dl (1.7-2.4); Potassium 3.2 mmol/L (3.5-5.1); Total Protein 5.6 gm/dl (6.0-8.3)
[2022-03-07] MEDS: DULoxetine HCL 60 MG CAP PO SCH (09:02)
[2022-03-07] MEDS: PROPRANOLOL HCL 10 MG TAB PO SCH ×3 (09:02→20:38)
[2022-03-07] MEDS: VITAMIN B COMPLEX TAB PO SCH (09:03)
[2022-03-07] MEDS: POT PHOSPHATE MONOBASIC W/ SOD TAB PO SCH ×4 (09:03→20:37)
[2022-03-07] MEDS: PANTOprazole 40 MG TAB PO SCH ×2 (09:03→20:37)
[2022-03-07] MEDS: rifAXIMin 550 MG TABLET PO SCH ×3 (09:03→20:39)
[2022-03-07] MEDS: OMEGA-3 (PURIFIED FISH OIL) 1 GM CAP PO SCH ×2 (09:03→20:39)
[2022-03-07] MEDS: MULTIVITAMIN TAB PO SCH (09:03)
[2022-03-07] MEDS: POTASSIUM CHLORIDE CRTAB 20 MEQ TABCR PO SCH ×3 (09:03→20:39)
[2022-03-07] MEDS: ZINC SULFATE 220 MG CAPSULE PO SCH (09:03)
[2022-03-07] MEDS: DOXYCYCLINE HYCLATE 100 MG CAP PO SCH ×2 (09:03→17:47)
[2022-03-07] MEDS: buPROPion SR 100 MG TABCR PO SCH (09:03)
[2022-03-07] MEDS: lisinopril 20 MG TAB PO SCH (09:03)
[2022-03-07] MEDS: EPLERENONE PO SCH (09:04)
[2022-03-07] MEDS: LACTULOSE SYRUP 30 GM/45 ML UDP PO SCH (09:04)
[2022-03-07] MEDS: GABAPENTIN 300 MG CAP PO SCH ×3 (09:04→20:38)
[2022-03-07] MEDS: dilTIAZem ER 180 MG CAPCR PO SCH (09:04)
[2022-03-07] MEDS: FUROSEMIDE 80 MG TAB PO SCH (09:05)
[2022-03-07] MEDS: INSULIN ASPART PER UNIT SC SCH ×4 (09:14→22:08)
[2022-03-07] MEDS: IRON SUCROSE 300 MG in SODIUM CHLORIDE 0.9% 250 ML IV SCH (10:22)
[2022-03-07] MEDS: MAGNESIUM SULFATE / D5W 1 GM/100 ML BAG IV SCH ×2 (14:15→15:53)
[2022-03-07] MEDS ORDERED: MAGNESIUM SULFATE / D5W 1 GM/100 ML BAG IV ONE (17:27)
--- NOTE | 2022-03-07 17:27 | Hospitalist Progress Note ---
Date of Service March 07, 2022 Assessment & Plan (1) Falls: Plan: Presents with multiple falls secondary to chronic right knee pain and severe arthritis causing need to give out -Has been having multiple mechanical falls since last admission, of which, PT/OT had recommended acute rehab stay but patient chose home PT/OT -Patient sustained lacerations to the left knee and left foot; also with right knee pain/swelling acute on chronic-wound care consult appreciated -PT/OT consults placed, patient and are agreeable to inpatient rehab -Consulted orthopedics for right knee-needs either hinged prosthesis surgery or right knee fusion-patient declines surgery at this time but he and his know that it is an option in the future and would have to be done at a tertiary care center. -does have multiple comorbidities which would make surgery more high risk -Plan for rehab placement-he will attempt to get stronger at rehab and if not improving, will consider surgery in the future (2) Suprapatellar effusion of knee: Plan: Chronic and longstanding issue with large effusion on the right and severe arthritis of the right knee Aspirated by orthopedics a couple of months ago with quick return and no relief with intra-articular steroid injection Orthopedic consult appreciated here-as above Recommends rehab for strengthening No aspiration at this time (3) Electrolyte abnormality: Plan: Magnesium and potassium are consistently low each day-secondary to lasix use and loose stools from lactulose use Had a lot of loose stools on 03/06 and lactulose dose was decreased to once daily -continue to replace with 3 grams IV magnesium today, increase KCL to 40 meq po tid, and continue oral potassium phosphorus 4 times a day Follow levels again in the morning -continue eplerenone (4) Type 2 diabetes mellitus: Plan: Hemoglobin A1c 6.5% in [id number] Had some hypoglycemia on the evening of 03/05 His Lantus was reduced back to his home dose of 8 units at bedtime -Continue basal bolus insulin -Accu checks ACHS (5) Subtherapeutic international normalized ratio (INR): Plan: -INR therapeutic at 2.6 (was subtherapeutic on admission) -Normally takes Warfarin at 7.5 mg daily except for Fridays when he takes 5 mg -Received 10 mg on the day of admission and have since resumed his usual dosing. -Check INR daily -Patient should be encouraged to eat a consistent amount of green leafy vegetables to assist with stable INR (6) Chronic systolic CHF (congestive heart failure): Plan: No acute issues, with chronic peripheral edema -Continue home lasix, Imdur, propranolol, lisinopril, and eplerenone (7) Anemia: Plan: Does have a history of thalassemia he believes-severely microcytic and longstanding although has worsened in the last 4 months-previous baseline hemoglobin around 11 and now down to 9 stable from yesterday - iron studies show iron deficiency with a transferrin saturation mildly low at 14% but overall more consistent with 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 with superimposed iron deficiency - B12, folate both normal -Gave IV Venofer 300 Mg daily x3 doses Had recent EGD in 01/2022 with grade 3 esophageal varices and portal gastropathy Colonoscopy many years ago No obvious bleeding that he has had from anywhere (8) Depression: Plan: No acute issues -Continue home bupropion (9) PAF (paroxysmal atrial fibrillation): Plan: Is in a sinus rhythm on ECG on admission and by exam -Continue home diltiazem, propranolol -Continue Coumadin (10) Nocturnal hypoxemia: Plan: -Patient hasn't been using at home Cpap due to losing a piece -Will order HS Cpap while admitted (11) Aldosteronism: Plan: -Continue Eplerenone (12) 1st degree AV block: Plan: -TX interval increased at 232, patient asymptomatic -Will continue Diltiazem as he has a history PAF to prevent RVR (13) CAD (coronary artery disease): Plan: With a history of redo CABG in 2010 No acute issues Not on aspirin presumably due to being on Coumadin and with a history of cirrhosis and esophageal varices and portal gastropathy-would avoid aspirin Continue propranolol, isosorbide, lisinopril, warfarin (14) Severe obstructive sleep apnea: Plan: CPAP at nighttime (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 -Continue BID Doxycycline 100 mg PO for chronic suppression (16) Hyperlipidemia: Plan: -Continue Zetia (17) Dysuria: Plan: -Patient states he has had some recent dysuria, was treated for uncomplicated UTI last admission -Is afebrile and no leukocytosis -UA here without evidence of infection Continue home dutasteride and tamsulosin (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 Denies much pain in right knee when in bed. No CP or SOB Review of Systems Review of Systems: All systems reviewed & are unremarkable except as noted in HPI & below Physical Exam Constitutional: WD/WN, vitals as above + obese Neck: trachea midline, no thyromegaly Respiratory: normal respiratory effort, lungs clear to auscultation Cardiovascular: Rate/Rhythm: regular rate and regular rhythm Heart Sounds: no murmur Extremities: + edema (2+ pitting edema of the legs bilaterally to the thighs) Chest (Breasts): Chest: normal inspection of chest Gastrointestinal (Abdomen): normal bowel sounds, soft, nontender, no hepatosplenomegaly Musculoskeletal: Extremities: + extremities abnormal to inspection (Right knee large effusion, no erythema), no cyanosis and no clubbing Skin: no rashes, warm and dry Trauma: + abrasion (Left knee superficial abrasion) and + laceration (Left 4-5th webspace with lac to muscle,no bleeding) Neurologic: moves all extremities and awake; no focal motor deficits Psychiatric: A+Ox3, euthymic affect Results & Data Results & Data ([facility]) Vital Signs (Past 12 Hours) Vital Signs Temp Pulse Resp BP Pulse Ox O2 Del Method 03/07/22 15:14 36.7 C 66 18 154/80 H 98 Room Air 03/07/22 06:13 36.7 C 58 L 14 130/84 93 CPAP Laboratory Results 03/07/22 03/07/22 03/07/22 Range/Units 17:19 12:11 08:15 PT (9.0-12.0) Seconds INR (0.9-1.1) Sodium (136-145) mmol/L Potassium (3.5-5.1) mmol/L Chloride (98-107) mmol/L Carbon Dioxide (21-32) mmol/L Anion Gap (3-11) BUN (6-23) mg/dl Creatinine (0.6-1.4) mg/dl Est Cr Clr Drug Dosing ml/min Est GFR ( Amer) ml/min Est GFR (Non-Af Amer) ml/min BUN/Creatinine Ratio (10-20) Glucose (70-99(Fasting)) mg/dl POC Glucose 107 H 147 H 76 (70-99) mg/dl Calcium (8.5-10.1) mg/dl Magnesium (1.7-2.4) mg/dl Total Bilirubin (0.2-1.0) mg/dl AST (13-39) U/L ALT (7-52) U/L Alkaline Phosphatase (34-104) U/L Total Protein (6.0-8.3) gm/dl Albumin (3.4-5.0) gm/dl Globulin (2.5-4.0) gm/dl Albumin/Globulin Ratio (0.9-2) 03/07/22 03/07/22 03/06/22 Range/Units 05:50 05:50 20:31 PT 26.6 H (9.0-12.0) Seconds INR 2.6 H (0.9-1.1) Sodium 140 (136-145) mmol/L Potassium 3.2 L (3.5-5.1) mmol/L Chloride 108 H (98-107) mmol/L Carbon Dioxide 30 (21-32) mmol/L Anion Gap 2 L (3-11) BUN 6 (6-23) mg/dl Creatinine 0.65 (0.6-1.4) mg/dl Est Cr Clr Drug Dosing 146.7 ml/min Est GFR ( Amer) 115.1 ml/min Est GFR (Non-Af Amer) 99.3 ml/min BUN/Creatinine Ratio 9.2 L (10-20) Glucose 70 (70-99(Fasting)) mg/dl POC Glucose 94 (70-99) mg/dl Calcium 7.8 L (8.5-10.1) mg/dl Magnesium 1.5 L (1.7-2.4) mg/dl Total Bilirubin 0.7 (0.2-1.0) mg/dl AST 74 H (13-39) U/L ALT 40 (7-52) U/L Alkaline Phosphatase 253 H (34-104) U/L Total Protein 5.6 L (6.0-8.3) gm/dl Albumin 2.2 L (3.4-5.0) gm/dl Globulin 3.4 (2.5-4.0) gm/dl Albumin/Globulin Ratio 0.6 L (0.9-2) 03/06/22 Range/Units 17:17 PT (9.0-12.0) Seconds INR (0.9-1.1) Sodium (136-145) mmol/L Potassium (3.5-5.1) mmol/L Chloride (98-107) mmol/L Carbon Dioxide (21-32) mmol/L Anion Gap (3-11) BUN (6-23) mg/dl Creatinine (0.6-1.4) mg/dl Est Cr Clr Drug Dosing ml/min Est GFR ( Amer) ml/min Est GFR (Non-Af Amer) ml/min BUN/Creatinine Ratio (10-20) Glucose (70-99(Fasting)) mg/dl POC Glucose 70 (70-99) mg/dl Calcium (8.5-10.1) mg/dl Magnesium (1.7-2.4) mg/dl Total Bilirubin (0.2-1.0) mg/dl AST (13-39) U/L ALT (7-52) U/L Alkaline Phosphatase (34-104) U/L Total Protein (6.0-8.3) gm/dl Albumin (3.4-5.0) gm/dl Globulin (2.5-4.0) gm/dl Albumin/Globulin Ratio (0.9-2) PG Care Time/CCT Total # of Minutes Spent Total Time Spent with Patient: Total time spent is greater than 50% in coordination of care (as documented) at patient's floor/unit and/or counseling patient: Coding Level of Care Code 72444 Subseq Hosp Care Lvl 2 Diagnoses Falls W19.XXXA Suprapatellar effusion of knee M25.469 Electrolyte abnormality E87.8 Type 2 diabetes mellitus E11.9 Subtherapeutic international normalized ratio (INR) R79.1 Chronic systolic CHF (congestive heart failure) I50.22 Anemia D64.9 Depression F32.9 PAF (paroxysmal atrial fibrillation) I48.0 Nocturnal hypoxemia G47.34 Aldosteronism E26.9 1st degree AV block I44.0 CAD (coronary artery disease) I25.10 Severe obstructive sleep apnea G47.33 Infection of lumbar spine M86.9 Hyperlipidemia E78.5 Dysuria R30.0 Cirrhosis of liver not due to alcohol K74.60
[2022-03-07] MEDS: WARFARIN SOD 7.5 MG TAB PO SCH (20:38)
[2022-03-07] MEDS: ISOSORBIDE MONO EXTENDED REL 60 MG TABCR PO SCH (20:38)
[2022-03-07] MEDS: EZETIMIBE 10 MG TABLET PO SCH (20:39)
[2022-03-07] MEDS: TAMSULOSIN HCL 0.4 MG CAP PO SCH (20:39)
[2022-03-07] MEDS: DUTASTERIDE PO SCH (20:41)
[2022-03-07] MEDS: LANTUS PER UNIT CHARGE SQ SCH (21:27)
[2022-03-08 06:35] LABS: INR 3.3 (0.9-1.1); Prothrombin Time 33.3 Seconds (9.0-12.0)
[2022-03-08 07:51] LABS: BUN Creatinine Ratio 7.9 (10-20); Calcium 8.1 mg/dl (8.5-10.1); Creatinine Clr Calc Pharmacy 151.3 ml/min; Est GFR (African American) 116.5 ml/min; Est GFR (Non-African American) 100.5 ml/min; Magnesium 1.6 mg/dl (1.7-2.4); Phosphorus 2.9 mg/dl (2.5-4.9); Potassium 3.5 mmol/L (3.5-5.1)
[2022-03-08] MEDS: DULoxetine HCL 60 MG CAP PO SCH (08:35)
[2022-03-08] MEDS: lisinopril 20 MG TAB PO SCH (08:35)
[2022-03-08] MEDS: dilTIAZem ER 180 MG CAPCR PO SCH (08:35)
[2022-03-08] MEDS: buPROPion SR 100 MG TABCR PO SCH (08:35)
[2022-03-08] MEDS: OMEGA-3 (PURIFIED FISH OIL) 1 GM CAP PO SCH ×2 (08:35→20:59)
[2022-03-08] MEDS: DOXYCYCLINE HYCLATE 100 MG CAP PO SCH ×2 (08:35→16:47)
[2022-03-08] MEDS: rifAXIMin 550 MG TABLET PO SCH ×3 (08:35→21:01)
[2022-03-08] MEDS: GABAPENTIN 300 MG CAP PO SCH ×3 (08:36→20:58)
[2022-03-08] MEDS: PANTOprazole 40 MG TAB PO SCH ×2 (08:36→21:01)
[2022-03-08] MEDS: POT PHOSPHATE MONOBASIC W/ SOD TAB PO SCH ×3 (08:36→16:47)
[2022-03-08] MEDS: ZINC SULFATE 220 MG CAPSULE PO SCH (08:36)
[2022-03-08] MEDS: PROPRANOLOL HCL 10 MG TAB PO SCH ×3 (08:36→21:00)
[2022-03-08] MEDS: MULTIVITAMIN TAB PO SCH (08:36)
[2022-03-08] MEDS: FUROSEMIDE 80 MG TAB PO SCH (08:36)
[2022-03-08] MEDS: VITAMIN B COMPLEX TAB PO SCH (08:37)
[2022-03-08] MEDS: POTASSIUM CHLORIDE CRTAB 20 MEQ TABCR PO SCH ×3 (08:37→20:59)
[2022-03-08] MEDS: LACTULOSE SYRUP 30 GM/45 ML UDP PO SCH (08:37)
[2022-03-08] MEDS: INSULIN ASPART PER UNIT SC SCH ×4 (08:38→21:34)
[2022-03-08] MEDS: EPLERENONE PO SCH (08:38)
[2022-03-08] MEDS: MAGNESIUM SULFATE / D5W 1 GM/100 ML BAG IV SCH ×2 (10:02→12:29)
--- NOTE | 2022-03-08 20:41 | Hospitalist Progress Note ---
Date of Service March 08, 2022 Assessment & Plan (1) Falls: Plan: Presents with multiple falls secondary to chronic right knee pain and severe arthritis causing need to give out -Has been having multiple mechanical falls since last admission, of which, PT/OT had recommended acute rehab stay but patient chose home PT/OT -Patient sustained lacerations to the left knee and left foot; also with right knee pain/swelling acute on chronic-wound care consult appreciated -PT/OT consults placed, patient and are agreeable to rehab -Consulted orthopedics for right knee-needs either hinged prosthesis surgery or right knee fusion-patient declines surgery at this time but he and his know that it is an option in the future and would have to be done at a tertiary care center. -does have multiple comorbidities which would make surgery more high risk -Plan for rehab placement-he will attempt to get stronger at rehab and if not improving, will consider surgery in the future (2) Suprapatellar effusion of knee: Plan: Chronic and longstanding issue with large effusion on the right and severe arthritis of the right knee Aspirated by orthopedics a couple of months ago with quick return and no relief with intra-articular steroid injection Orthopedic consult appreciated here-as above Recommends rehab for strengthening No aspiration at this time (3) Electrolyte abnormality: Plan: Magnesium and potassium are consistently low each day, but continue to improve with replacement-secondary to lasix use and loose stools from lactulose use Had a lot of loose stools on 03/06 and lactulose dose was decreased to once daily -continue to replace with 2 grams IV magnesium today, continue KCL to 40 meq po tid Phos levels now normal-dc oral potassium phosphorus 4 times a day -add on po magnesium oxide Follow levels again in the morning -continue eplerenone (4) Type 2 diabetes mellitus: Plan: Hemoglobin A1c 6.5% in [id number] Had some hypoglycemia on the evening of 03/05 His Lantus was reduced back to his home dose of 8 units at bedtime and glucose now stable -Continue basal bolus insulin -Accu checks ACHS (5) Subtherapeutic international normalized ratio (INR): Plan: -INR was subtherapeutic on admission and now is 3.2 -Normally takes Warfarin at 7.5 mg daily except for Fridays when he takes 5 mg -Received 10 mg on the day of admission and have since resumed his usual dosing. Ok to continue usual dosing for today but if INR goes up again tomorrow then would hold -Check INR daily -Patient should be encouraged to eat a consistent amount of green leafy vegetab les to assist with stable INR (6) Chronic systolic CHF (congestive heart failure): Plan: No acute issues, with chronic peripheral edema -Continue home lasix, Imdur, propranolol, lisinopril, and eplerenone (7) Anemia: Plan: Does have a history of thalassemia he believes-severely microcytic and longstanding although has worsened in the last 4 months-previous baseline hemoglobin around 11 and now down to 9 stable from yesterday - iron studies show iron deficiency with a transferrin saturation mildly low at 14% but overall more consistent with 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 with superimposed iron deficiency - B12, folate both normal -Gave IV Venofer 300 Mg daily x3 doses Had recent EGD in 01/2022 with grade 3 esophageal varices and portal gastropathy Colonoscopy many years ago No obvious bleeding that he has had from anywhere (8) Depression: Plan: No acute issues -Continue home bupropion (9) PAF (paroxysmal atrial fibrillation): Plan: Is in a sinus rhythm on ECG on admission and by exam -Continue home diltiazem, propranolol -Continue Coumadin (10) Nocturnal hypoxemia: Plan: -Patient hasn't been using at home Cpap due to losing a piece -Will order HS Cpap while admitted (11) Aldosteronism: Plan: -Continue Eplerenone (12) 1st degree AV block: Plan: -NV interval increased at 232, patient asymptomatic -Will continue Diltiazem as he has a history PAF to prevent RVR (13) CAD (coronary artery disease): Plan: With a history of redo CABG in 2010 No acute issues Not on aspirin presumably due to being on Coumadin and with a history of cirrhosis and esophageal varices and portal gastropathy-would avoid aspirin Continue propranolol, isosorbide, lisinopril, warfarin (14) Severe obstructive sleep apnea: Plan: CPAP at nighttime (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 -Continue BID Doxycycline 100 mg PO for chronic suppression (16) Hyperlipidemia: Plan: -Continue Zetia (17) Dysuria: Plan: -Patient states he has had some recent dysuria, was treated for uncomplicated UTI last admission -Is afebrile and no leukocytosis -UA here without evidence of infection Continue home dutasteride and tamsulosin (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 Rader from insurance and auth for acute rehab was denied. SNF auth will be applied for once bed available at SNF Admission and Anticipated Discharge Date Admission Date: March 06, 2022 Subjective Pt has no complaints. Moving bowels 2-3 times a day. Some pain in right knee. Review of Systems Review of Systems: All systems reviewed & are unremarkable except as noted in HPI & below Physical Exam Constitutional: WD/WN, vitals as above + obese Eyes: + anicteric sclerae Neck: trachea midline, no thyromegaly Respiratory: normal respiratory effort, lungs clear to auscultation Cardiovascular: Rate/Rhythm: regular rate and regular rhythm Heart Sounds: no murmur Extremities: + edema (2+ pitting edema of the legs bilaterally to the thighs) Chest (Breasts): Chest: normal inspection of chest Gastrointestinal (Abdomen): normal bowel sounds, soft, nontender, no hepatosplenomegaly Musculoskeletal: Extremities: + extremities abnormal to inspection (Right knee large effusion, no erythema), no cyanosis and no clubbing Skin: no rashes, warm and dry Trauma: + abrasion (Left knee superficial abrasion) and + laceration (Left 4-5th webspace with lac to muscle,no bleeding) Neurologic: moves all extremities and awake; no focal motor deficits Psychiatric: A+Ox3, euthymic affect Results & Data Results & Data ([facility]) Vital Signs (Past 12 Hours) Vital Signs Temp Pulse Resp BP Pulse Ox O2 Del Method 03/08/22 14:19 36.3 C L 61 18 136/74 99 Room Air Laboratory Results 03/08/22 03/08/22 03/08/22 Range/Units 17:14 17:05 12:00 PT (9.0-12.0) Seconds INR (0.9-1.1) Sodium (136-145) mmol/L Potassium (3.5-5.1) mmol/L Chloride (98-107) mmol/L Carbon Dioxide (21-32) mmol/L Anion Gap (3-11) BUN (6-23) mg/dl Creatinine (0.6-1.4) mg/dl Est Cr Clr Drug Dosing ml/min Est GFR ( Amer) ml/min Est GFR (Non-Af Amer) ml/min BUN/Creatinine Ratio (10-20) Glucose (70-99(Fasting)) mg/dl POC Glucose 132 H 128 H 154 H (70-99) mg/dl Calcium (8.5-10.1) mg/dl Phosphorus (2.5-4.9) mg/dl Magnesium (1.7-2.4) mg/dl 03/08/22 03/08/22 03/08/22 Range/Units 08:04 06:02 06:02 PT 33.3 H (9.0-12.0) Seconds INR 3.3 H (0.9-1.1) Sodium 142 (136-145) mmol/L Potassium 3.5 (3.5-5.1) mmol/L Chloride 109 H (98-107) mmol/L Carbon Dioxide 29 (21-32) mmol/L Anion Gap 4 (3-11) BUN 5 L (6-23) mg/dl Creatinine 0.63 (0.6-1.4) mg/dl Est Cr Clr Drug Dosing 151.3 ml/min Est GFR ( Amer) 116.5 ml/min Est GFR (Non-Af Amer) 100.5 ml/min BUN/Creatinine Ratio 7.9 L (10-20) Glucose 75 (70-99(Fasting)) mg/dl POC Glucose 71 (70-99) mg/dl Calcium 8.1 L (8.5-10.1) mg/dl Phosphorus 2.9 (2.5-4.9) mg/dl Magnesium 1.6 L (1.7-2.4) mg/dl PG Care Time/CCT Total # of Minutes Spent Total Time Spent with Patient: Total time spent is greater than 50% in coordination of care (as documented) at patient's floor/unit and/or counseling patient: Coding Level of Care Code 49059 Subseq Hosp Care Lvl 2 Diagnoses Falls W19.XXXA Suprapatellar effusion of knee M25.469 Electrolyte abnormality E87.8 Type 2 diabetes mellitus E11.9 Subtherapeutic international normalized ratio (INR) R79.1 Chronic systolic CHF (congestive heart failure) I50.22 Anemia D64.9 Depression F32.9 PAF (paroxysmal atrial fibrillation) I48.0 Nocturnal hypoxemia G47.34 Aldosteronism E26.9 1st degree AV block I44.0 CAD (coronary artery disease) I25.10 Severe obstructive sleep apnea G47.33 Infection of lumbar spine M86.9 Hyperlipidemia E78.5 Dysuria R30.0 Cirrhosis of liver not due to alcohol K74.60
[2022-03-08] MEDS: CARBOHYDRATES FOR HYPOGLYCEMIA PO PRN (20:57)
[2022-03-08] MEDS: ISOSORBIDE MONO EXTENDED REL 60 MG TABCR PO SCH (20:59)
[2022-03-08] MEDS: TAMSULOSIN HCL 0.4 MG CAP PO SCH (21:01)
[2022-03-08] MEDS: EZETIMIBE 10 MG TABLET PO SCH (21:01)
[2022-03-08] MEDS: WARFARIN SOD 7.5 MG TAB PO SCH (21:01)
[2022-03-08] MEDS: DUTASTERIDE PO SCH (21:02)
[2022-03-08] MEDS: LANTUS PER UNIT CHARGE SQ SCH (21:34)
[2022-03-09] MEDS: MELATONIN 3 MG TAB PO PRN (00:04)
[2022-03-09 06:35] LABS: Hematocrit (blood only) 27.7 % (40.1-51.0); Hemoglobin 8.9 g/dl (14.0-18.0); Mean Corpuscular Hemoglobin 20.4 pg (25.0-34.0); Mean Corpuscular Hgb Conc 32.1 g/dL (32.0-36.0); Mean Corpuscular Volume 63.4 fL (80.0-100.0); Nucleated RBC # (auto) 0.06 K/uL (0-0); Nucleated RBC % (auto) 1.1 %; RDW Coefficient of Variation 25.7 % (11.5-14.5); Red Blood Count 4.37 M/uL (4.63-6.08); White Blood Count 5.26 K/ul (4.8-10.8)
[2022-03-09 06:41] LABS: Platelet Count 157 K/uL (130-400)
[2022-03-09 06:56] LABS: Prothrombin Time 39.8 Seconds (9.0-12.0)
[2022-03-09 07:01] LABS: Anisocytosis Present; Basophils # (auto) 0.02 K/uL (0-0.2); Basophils % (auto) 0.4 %; Eosinophils # (auto) 0.26 K/uL (0-0.50); Eosinophils % (auto) 4.9 %; Immature Granulocytes # (auto) 0.02 K/uL (0.00-0.02); Immature Granulocytes % (auto) 0.4 %; Lymphocytes # (auto) 1.56 K/uL (1.2-3.4); Lymphocytes % (auto) 29.7 %; Microcytosis Present; Monocytes # (auto) 0.63 K/uL (0.24-0.82); Neutrophils # (auto) 2.77 K/uL (1.4-6.5); Neutrophils % (auto) 52.6 %; Polychromasia 2+; Schistocytes 1+; Target Cells 3+
[2022-03-09 07:08] LABS: Albumin Globulin Ratio 0.7 (0.9-2); Albumin Level 2.2 gm/dl (3.4-5.0); BUN Creatinine Ratio 10.8 (10-20); Bilirubin,Total 0.6 mg/dl (0.2-1.0); Calcium 8.1 mg/dl (8.5-10.1); Creatinine Clr Calc Pharmacy 146.7 ml/min; Est GFR (African American) 115.1 ml/min; Est GFR (Non-African American) 99.3 ml/min; Globulin 3.3 gm/dl (2.5-4.0); Magnesium 1.5 mg/dl (1.7-2.4); Potassium 3.7 mmol/L (3.5-5.1); Total Protein 5.5 gm/dl (6.0-8.3)
[2022-03-09] MEDS: buPROPion SR 100 MG TABCR PO SCH (08:30)
[2022-03-09] MEDS: ZINC SULFATE 220 MG CAPSULE PO SCH (08:30)
[2022-03-09] MEDS: MULTIVITAMIN TAB PO SCH (08:30)
[2022-03-09] MEDS: VITAMIN B COMPLEX TAB PO SCH (08:31)
[2022-03-09] MEDS: DULoxetine HCL 60 MG CAP PO SCH (08:31)
[2022-03-09] MEDS: FUROSEMIDE 80 MG TAB PO SCH (08:31)
[2022-03-09] MEDS: lisinopril 20 MG TAB PO SCH (08:31)
[2022-03-09] MEDS: DOXYCYCLINE HYCLATE 100 MG CAP PO SCH ×2 (08:31→16:56)
[2022-03-09] MEDS: PANTOprazole 40 MG TAB PO SCH ×2 (08:33→20:10)
[2022-03-09] MEDS: rifAXIMin 550 MG TABLET PO SCH ×3 (08:33→20:12)
[2022-03-09] MEDS: PROPRANOLOL HCL 10 MG TAB PO SCH ×3 (08:33→20:11)
[2022-03-09] MEDS: MAGNESIUM OXIDE 400 MG TAB PO SCH (08:34)
[2022-03-09] MEDS: dilTIAZem ER 180 MG CAPCR PO SCH (08:34)
[2022-03-09] MEDS: GABAPENTIN 300 MG CAP PO SCH ×3 (08:34→20:10)
[2022-03-09] MEDS: OMEGA-3 (PURIFIED FISH OIL) 1 GM CAP PO SCH ×2 (08:35→20:11)
[2022-03-09] MEDS: POTASSIUM CHLORIDE CRTAB 20 MEQ TABCR PO SCH ×3 (08:35→20:12)
[2022-03-09] MEDS: LACTULOSE SYRUP 30 GM/45 ML UDP PO SCH (08:36)
[2022-03-09] MEDS: EPLERENONE PO SCH (08:36)
[2022-03-09] MEDS: INSULIN ASPART PER UNIT SC SCH ×4 (08:45→20:48)
[2022-03-09] MEDS: MAGNESIUM SULFATE / D5W 1 GM/100 ML BAG IV SCH ×3 (10:00→13:44)
[2022-03-09] MEDS: EZETIMIBE 10 MG TABLET PO SCH (20:10)
[2022-03-09] MEDS: ISOSORBIDE MONO EXTENDED REL 60 MG TABCR PO SCH (20:11)
[2022-03-09] MEDS: TAMSULOSIN HCL 0.4 MG CAP PO SCH (20:11)
[2022-03-09] MEDS: predniSONE 10 MG TABLET PO SCH (20:47)
[2022-03-09] MEDS: DUTASTERIDE PO SCH (20:47)
[2022-03-09] MEDS ORDERED: LANTUS PER UNIT CHARGE SQ SCH (21:00)
--- NOTE | 2022-03-09 21:07 | Hospitalist Progress Note ---
Date of Service March 09, 2022 Assessment & Plan (1) Falls: Plan: Presents with multiple falls secondary to chronic right knee pain and severe arthritis causing the knee to give way Sustained lacerations to the left knee and left foot due to the falls PT/OT consults placed - both advise rehab - patient and are agreeable to rehab Consulted orthopedics for right knee issues - needs either hinged prosthesis surgery or right knee fusion * patient declines surgery at this time but he and his know that it is an option that would have to be done at a tertiary care center (2) Suprapatellar effusion of knee: Plan: Chronic and longstanding issue with large effusion on the right and severe osteoarthritis of the right knee Recent imaging with CPPD crystals - could have element of pseudogout Trial of prednisone 10mg daily x 7 days Check CRP in am Aspirated by orthopedics a couple of months ago with quick return of effusion unfortunately and no relief with intra-articular steroid injection Too early to get another injection thus will attempt the PO prednisone trial as above Orthopedic consult appreciated Recommends rehab for strengthening Needs an extensive knee operation which would have to be done at tertiary care center (3) Pseudogout of right knee: Plan: possible component of his ongoing right knee issues see #2 above (4) Electrolyte abnormality: Plan: low mag and low K - 2nd to frequent stooling from lactulose and from daily lasix give mag sulfate 2gm x 1 again today repeat K and mag in am (5) Type 2 diabetes mellitus: Plan: Hemoglobin A1c 6.5% in [id number] Had some hypoglycemia on the evening of 03/05 Still having low-normal readings Thus - reduce lantus to 6 units loose his novolog if needed as well (6) Subtherapeutic international normalized ratio (INR): Plan: Usual outpatient Warfarin schedule - 7.5 mg daily except for Fridays when he takes 5 mg INR now 4 today HOLD coumadin repeat INR am (7) Chronic systolic CHF (congestive heart failure): Plan: Compensated Continue home lasix, Imdur, propranolol, lisinopril, and eplerenone (8) Anemia: Plan: Does have a history of thalassemia previous baseline hemoglobin around 11 but now much lower iron studies show iron deficiency with a transferrin saturation mildly low at 14% B12, folate both normal s/p IV Venofer 300 Mg daily x3 doses Had recent EGD in 01/2022 with grade 3 esophageal varices and portal gastropathy Colonoscopy many years ago No obvious GI bleeding Cont to trend the CBC (9) Depression: Plan: Continue home bupropion (10) PAF (paroxysmal atrial fibrillation): Plan: examines in NSR Continue home diltiazem, propranolol Holding Coumadin due to high INR as above INR am (11) Nocturnal hypoxemia: Plan: Patient hasn't been using at home CPAP CPAP ordered for him here (12) CAD (coronary artery disease): Plan: With a history of redo CABG in 2010 No acute issues Not on aspirin presumably due to being on Coumadin and with a history of cirrhosis and esophageal varices and portal gastropathy-would avoid aspirin Continue propranolol, isosorbide, lisinopril, warfarin (13) Severe obstructive sleep apnea: Plan: CPAP at nighttime (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 tolerated lipitor in past per records .... (16) Cirrhosis of liver not due to alcohol: Plan: With known esophageal varices Continue propranolol Continue rifaximin Continue lactulose with BM goal 2-3/day Follow with GI as an outpatient Plan Previous attending completed a peer to peer with the Dr. Rader from insurance and auth for acute rehab was denied. SNF auth will be applied for once bed available at SNF. updated at bedside today Admission and Anticipated Discharge Date Admission Date: March 06, 2022 Subjective sitting in chair present only complaint is right knee pain - not constant, but with any movement it hurts very swollen & warm has prior h/o gout but no CPPD to his knowledge eating fine no other acute issues Review of Systems Review of Systems: gen - no fevers cv - no cp pulm - no dyspnea GI - no abd pain Physical Exam Physical Exam: gen - obese, NAD neck - no JVD mouth - MMM heart - RRR, s1 s2 lungs - CTA b/l abd - soft NT ND BS+ ext - <1+ ankle edema, pulses 2+ b/l musculo - large right knee effusion, mildly warm to touch but not hot or erythematous, decreased active ROM due to pain, nontender to palpation of joint lines Results & Data Results & Data ([facility]) Vital Signs (Past 12 Hours) Vital Signs Temp Pulse Resp BP Pulse Ox O2 Del Method 03/09/22 20:46 36.4 C L 67 18 162/72 H 95 Room Air 03/09/22 20:08 63 149/75 H 03/09/22 16:32 36.7 C 61 18 146/81 H 98 Room Air 03/09/22 13:47 36.5 C 67 16 125/67 97 Room Air Laboratory Results Laboratory Results - last 24 hr 03/08/22 03/09/22 03/09/22 21:21 06:10 06:10 WBC 5.26 RBC 4.37 L Hgb 8.9 L Hct 27.7 L MCV 63.4 L MCH 20.4 L MCHC 32.1 RDW Std Deviation 52.0 H RDW Coeff of Jt 25.7 H Plt Count 157 Immature Gran % (Auto) 0.4 Neut % (Auto) 52.6 Lymph % (Auto) 29.7 [place] % (Auto) 12.0 Eos % (Auto) 4.9 Baso % (Auto) 0.4 Neut # (Auto) 2.77 Lymph # (Auto) 1.56 [place] # (Auto) 0.63 Eos # (Auto) 0.26 Baso # (Auto) 0.02 Immature Gran # (Auto) 0.02 Absolute Nucleated RBC 0.06 H Nucleated RBC % (auto) 1.1 Polychromasia 2+ Anisocytosis Present Microcytosis Present Target Cells 3+ Schistocytes 1+ PT 39.8 H INR 4.0 H Sodium Potassium Chloride Carbon Dioxide Anion Gap BUN Creatinine Est Cr Clr Drug Dosing Est GFR ( Amer) Est GFR (Non-Af Amer) BUN/Creatinine Ratio Glucose POC Glucose 163 H Calcium Magnesium Total Bilirubin AST ALT Alkaline Phosphatase Total Protein Albumin Globulin Albumin/Globulin Ratio 03/09/22 03/09/22 03/09/22 06:10 08:08 11:51 WBC RBC Hgb Hct MCV MCH MCHC RDW Std Deviation RDW Coeff of Jt Plt Count Immature Gran % (Auto) Neut % (Auto) Lymph % (Auto) [place] % (Auto) Eos % (Auto) Baso % (Auto) Neut # (Auto) Lymph # (Auto) [place] # (Auto) Eos # (Auto) Baso # (Auto) Immature Gran # (Auto) Absolute Nucleated RBC Nucleated RBC % (auto) Polychromasia Anisocytosis Microcytosis Target Cells Schistocytes PT INR Sodium 140 Potassium 3.7 Chloride 108 H Carbon Dioxide 29 Anion Gap 3 BUN 7 Creatinine 0.65 Est Cr Clr Drug Dosing 146.7 Est GFR ( Amer) 115.1 Est GFR (Non-Af Amer) 99.3 BUN/Creatinine Ratio 10.8 Glucose 71 POC Glucose 87 170 H Calcium 8.1 L Magnesium 1.5 L Total Bilirubin 0.6 AST 74 H ALT 40 Alkaline Phosphatase 248 H Total Protein 5.5 L Albumin 2.2 L Globulin 3.3 Albumin/Globulin Ratio 0.7 L 03/09/22 03/09/22 16:56 20:42 WBC RBC Hgb Hct MCV MCH MCHC RDW Std Deviation RDW Coeff of Jt Plt Count Immature Gran % (Auto) Neut % (Auto) Lymph % (Auto) [place] % (Auto) Eos % (Auto) Baso % (Auto) Neut # (Auto) Lymph # (Auto) [place] # (Auto) Eos # (Auto) Baso # (Auto) Immature Gran # (Auto) Absolute Nucleated RBC Nucleated RBC % (auto) Polychromasia Anisocytosis Microcytosis Target Cells Schistocytes PT INR Sodium Potassium Chloride Carbon Dioxide Anion Gap BUN Creatinine Est Cr Clr Drug Dosing Est GFR ( Amer) Est GFR (Non-Af Amer) BUN/Creatinine Ratio Glucose POC Glucose 73 95 Calcium Magnesium Total Bilirubin AST ALT Alkaline Phosphatase Total Protein Albumin Globulin Albumin/Globulin Ratio PG Care Time/CCT Total # of Minutes Spent Total Time Spent with Patient: Total time spent is greater than 50% in coordination of care (as documented) at patient's floor/unit and/or counseling patient: Coding Level of Care Code 91726 Subseq Hosp Care Lvl 3 Diagnoses Falls W19.XXXA Suprapatellar effusion of knee M25.469 Pseudogout of right knee M11.261 Electrolyte abnormality E87.8 Type 2 diabetes mellitus E11.9 Subtherapeutic international normalized ratio (INR) R79.1 Chronic systolic CHF (congestive heart failure) I50.22 Anemia D64.9 Depression F32.9 PAF (paroxysmal atrial fibrillation) I48.0 Nocturnal hypoxemia G47.34 CAD (coronary artery disease) I25.10 Severe obstructive sleep apnea G47.33 Infection of lumbar spine M86.9 Hyperlipidemia E78.5 Cirrhosis of liver not due to alcohol K74.60
[2022-03-10 06:35] LABS: BUN Creatinine Ratio 11.3 (10-20); C Reactive Protein 2.45 mg/dl (0-0.5); Calcium 8.2 mg/dl (8.5-10.1); Creatinine Clr Calc Pharmacy 134.3 ml/min; Est GFR (Non-African American) 95.7 ml/min; Magnesium 1.6 mg/dl (1.7-2.4); Potassium 4.2 mmol/L (3.5-5.1)
[2022-03-10 06:41] LABS: INR 3.7 (0.9-1.1); Prothrombin Time 36.7 Seconds (9.0-12.0)
[2022-03-10] MEDS: INSULIN ASPART PER UNIT SC SCH ×4 (08:56→21:09)
[2022-03-10] MEDS: MAGNESIUM OXIDE 400 MG TAB PO SCH ×2 (08:57→21:27)
[2022-03-10] MEDS: predniSONE 10 MG TABLET PO SCH (08:57)
[2022-03-10] MEDS: GABAPENTIN 300 MG CAP PO SCH ×3 (08:58→21:26)
[2022-03-10] MEDS: dilTIAZem ER 180 MG CAPCR PO SCH (08:58)
[2022-03-10] MEDS: FUROSEMIDE 80 MG TAB PO SCH (08:59)
[2022-03-10] MEDS: rifAXIMin 550 MG TABLET PO SCH ×3 (08:59→21:28)
[2022-03-10] MEDS: OMEGA-3 (PURIFIED FISH OIL) 1 GM CAP PO SCH ×2 (08:59→21:26)
[2022-03-10] MEDS: DULoxetine HCL 60 MG CAP PO SCH (09:00)
[2022-03-10] MEDS: buPROPion SR 100 MG TABCR PO SCH (09:00)
[2022-03-10] MEDS: DOXYCYCLINE HYCLATE 100 MG CAP PO SCH ×2 (09:01→18:04)
[2022-03-10] MEDS: lisinopril 20 MG TAB PO SCH (09:02)
[2022-03-10] MEDS: EPLERENONE PO SCH (09:02)
[2022-03-10] MEDS: PANTOprazole 40 MG TAB PO SCH ×2 (09:03→21:27)
[2022-03-10] MEDS: POTASSIUM CHLORIDE CRTAB 20 MEQ TABCR PO SCH ×3 (09:03→21:27)
[2022-03-10] MEDS: MULTIVITAMIN TAB PO SCH (09:03)
[2022-03-10] MEDS: ZINC SULFATE 220 MG CAPSULE PO SCH (09:04)
[2022-03-10] MEDS: PROPRANOLOL HCL 10 MG TAB PO SCH ×3 (09:04→21:40)
[2022-03-10] MEDS: VITAMIN B COMPLEX TAB PO SCH (09:04)
[2022-03-10] MEDS: LACTULOSE SYRUP 30 GM/45 ML UDP PO SCH (09:07)
[2022-03-10] MEDS: MAGNESIUM SULFATE / D5W 1 GM/100 ML BAG IV SCH ×2 (11:44→13:26)
[2022-03-10] MEDS: CARBOHYDRATES FOR HYPOGLYCEMIA PO PRN (17:26)
[2022-03-10] MEDS ORDERED: LANTUS PER UNIT CHARGE SQ SCH (21:00)
[2022-03-10] MEDS: EZETIMIBE 10 MG TABLET PO SCH (21:26)
[2022-03-10] MEDS: ISOSORBIDE MONO EXTENDED REL 60 MG TABCR PO SCH (21:27)
[2022-03-10] MEDS: DUTASTERIDE PO SCH (21:28)
[2022-03-10] MEDS: TAMSULOSIN HCL 0.4 MG CAP PO SCH (21:28)
[2022-03-10] MEDS: MELATONIN 3 MG TAB PO PRN (21:40)
--- NOTE | 2022-03-10 21:43 | Hospitalist Progress Note ---
Date of Service March 10, 2022 Assessment & Plan (1) Falls: Plan: Presents with multiple falls secondary to chronic right knee pain and severe arthritis causing the knee to give way Sustained lacerations to the left knee and left foot due to the falls PT/OT consults placed - both advise rehab - patient and are agreeable to rehab Consulted orthopedics for right knee issues - needs either hinged prosthesis surgery or right knee fusion * patient declines surgery at this time but he and his know that it is an option that would have to be done at a tertiary care center (2) Suprapatellar effusion of knee: Plan: Chronic and longstanding issue with large effusion on the right and severe osteoarthritis of the right knee Recent imaging with CPPD crystals - could have element of pseudogout Trial of prednisone 10mg daily x 7 days, first dose on 03/09 CRP acceptable today on AM labs Knee is slightly improved today overall Aspirated by orthopedics a couple of months ago with quick return of effusion unfortunately and no relief with intra-articular steroid injection Too early to get another injection thus will attempt the PO prednisone trial as above Orthopedic consult appreciated Recommends rehab for strengthening Needs an extensive knee operation which would have to be done at tertiary care center (3) Pseudogout of right knee: Plan: possible component of his ongoing right knee issues see #2 above (4) Electrolyte abnormality: Plan: low mag and low K - 2nd to frequent stooling from lactulose and from daily lasix give mag sulfate 2gm x 1 again today increase PO mag to BID dosing mag level again in am (5) Type 2 diabetes mellitus: Plan: Hemoglobin A1c 6.5% in [id number] Had some hypoglycemia on the evening of 03/05 and BSGs cont to be low or low-normal reduce lantus again to 5 units loosen novlog once again re-eval tomorrow (6) Subtherapeutic international normalized ratio (INR): Plan: Usual outpatient Warfarin schedule - 7.5 mg daily except for Fridays when he takes 5 mg INR still >3 HOLD coumadin repeat INR am (7) Chronic systolic CHF (congestive heart failure): Plan: Compensated Continue home lasix, Imdur, propranolol, lisinopril, and eplerenone (8) Anemia: Plan: Does have a history of thalassemia previous baseline hemoglobin around 11 but now much lower iron studies show iron deficiency with a transferrin saturation mildly low at 14% B12, folate both normal s/p IV Venofer 300 Mg daily x3 doses Had recent EGD in 01/2022 with grade 3 esophageal varices and portal gastropathy Colonoscopy many years ago No obvious GI bleeding Hb about 9 on 03/09/22 (9) Depression: Plan: Continue home bupropion (10) PAF (paroxysmal atrial fibrillation): Plan: examines in NSR Continue home diltiazem, propranolol Holding Coumadin due to high INR as above INR am (11) Nocturnal hypoxemia: Plan: Patient hasn't been using at home CPAP CPAP ordered for him here (12) CAD (coronary artery disease): Plan: With a history of redo CABG in 2010 No acute issues Not on aspirin presumably due to being on Coumadin and with a history of cirrhosis and esophageal varices and portal gastropathy-would avoid aspirin Continue propranolol, isosorbide, lisinopril, warfarin (13) Severe obstructive sleep apnea: Plan: CPAP at nighttime (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 tolerated lipitor in past per records (16) Cirrhosis of liver not due to alcohol: Plan: With known esophageal varices Continue propranolol Continue rifaximin Continue lactulose with BM goal 2-3/day Follow with GI as an outpatient Plan Previous attending completed a peer to peer with the Dr. Rader from insurance and auth for acute rehab was denied. SNF auth will be applied for once bed available at SNF. hopefully [facility] will take him this week updated at bedside again today Admission and Anticipated Discharge Date Admission Date: March 06, 2022 Subjective patient thinks the left knee may be slightly less swollen, slightly less warm, and a little less painful today otherwise no new complaints at bedside they were informed about [facility] possibly taking him this week for rehab he has been to [facility] in the past Review of Systems Review of Systems: cv - no orthopnea pulm - no dyspnea GI - no abd pain gen - eating fine Physical Exam Physical Exam: gen - obese, NAD neck - no JVD mouth - MMM heart - RRR, s1 s2, no murmur lungs - CTA b/l abd - soft NT ND BS+ ext - 1+ ankle edema, pulses 2+ b/l skin - skin abrasion just below L knee - clean, no drainage; cut in between 4/5th toes on left foot - clean, no drainage, no cellulitis musculo - large right knee effusion but perhaps slightly improved today; mildly warm to touch but not hot or erythematous - and slightly less warm today Results & Data Results & Data ([facility]) Vital Signs (Past 12 Hours) Vital Signs Temp Pulse Resp BP Pulse Ox O2 Del Method 03/10/22 21:35 36.7 C 57 L 18 119/59 L 99 Room Air 03/10/22 21:39 36.7 C 58 L 16 143/79 H 97 Room Air 03/10/22 14:26 36.5 C 61 16 133/77 96 Room Air 03/10/22 14:15 66 131/67 Laboratory Results Laboratory Results - last 24 hr 03/10/22 03/10/22 03/10/22 05:30 05:30 08:00 PT 36.7 H INR 3.7 H Sodium 140 Potassium 4.2 Chloride 110 H Carbon Dioxide 27 Anion Gap 3 BUN 8 Creatinine 0.71 Est Cr Clr Drug Dosing 134.3 Est GFR ( Amer) 111.0 Est GFR (Non-Af Amer) 95.7 BUN/Creatinine Ratio 11.3 Glucose 90 POC Glucose 81 Calcium 8.2 L Magnesium 1.6 L C-Reactive Protein 2.45 H 03/10/22 03/10/22 03/10/22 12:02 17:23 17:40 PT INR Sodium Potassium Chloride Carbon Dioxide Anion Gap BUN Creatinine Est Cr Clr Drug Dosing Est GFR ( Amer) Est GFR (Non-Af Amer) BUN/Creatinine Ratio Glucose POC Glucose 161 H 61 L* 87 Calcium Magnesium C-Reactive Protein 03/10/22 20:41 PT INR Sodium Potassium Chloride Carbon Dioxide Anion Gap BUN Creatinine Est Cr Clr Drug Dosing Est GFR ( Amer) Est GFR (Non-Af Amer) BUN/Creatinine Ratio Glucose POC Glucose 91 Calcium Magnesium C-Reactive Protein PG Care Time/CCT Total # of Minutes Spent Total Time Spent with Patient: Total time spent is greater than 50% in coordination of care (as documented) at patient's floor/unit and/or counseling patient: Coding Level of Care Code 38667 Subseq Hosp Care Lvl 2 Diagnoses Falls W19.XXXA Suprapatellar effusion of knee M25.469 Pseudogout of right knee M11.261 Electrolyte abnormality E87.8 Type 2 diabetes mellitus E11.9 Subtherapeutic international normalized ratio (INR) R79.1 Chronic systolic CHF (congestive heart failure) I50.22 Anemia D64.9 Depression F32.9 PAF (paroxysmal atrial fibrillation) I48.0 Nocturnal hypoxemia G47.34 CAD (coronary artery disease) I25.10 Severe obstructive sleep apnea G47.33 Infection of lumbar spine M86.9 Hyperlipidemia E78.5 Cirrhosis of liver not due to alcohol K74.60
[2022-03-11 06:59] LABS: INR 2.7 (0.9-1.1); Prothrombin Time 27.2 Seconds (9.0-12.0)
[2022-03-11] MEDS: LACTULOSE SYRUP 30 GM/45 ML UDP PO SCH (09:08)
[2022-03-11] MEDS: MULTIVITAMIN TAB PO SCH (09:08)
[2022-03-11] MEDS: PROPRANOLOL HCL 10 MG TAB PO SCH ×2 (09:08→12:59)
[2022-03-11] MEDS: rifAXIMin 550 MG TABLET PO SCH ×2 (09:08→13:00)
[2022-03-11] MEDS: dilTIAZem ER 180 MG CAPCR PO SCH (09:08)
[2022-03-11] MEDS: predniSONE 10 MG TABLET PO SCH (09:08)
[2022-03-11] MEDS: VITAMIN B COMPLEX TAB PO SCH (09:09)
[2022-03-11] MEDS: EPLERENONE PO SCH (09:09)
[2022-03-11] MEDS: FUROSEMIDE 80 MG TAB PO SCH (09:09)
[2022-03-11] MEDS: POTASSIUM CHLORIDE CRTAB 20 MEQ TABCR PO SCH ×2 (09:09→13:00)
[2022-03-11] MEDS: PANTOprazole 40 MG TAB PO SCH (09:09)
[2022-03-11] MEDS: GABAPENTIN 300 MG CAP PO SCH ×2 (09:09→13:00)
[2022-03-11] MEDS: DULoxetine HCL 60 MG CAP PO SCH (09:09)
[2022-03-11] MEDS: lisinopril 20 MG TAB PO SCH (09:09)
[2022-03-11] MEDS: buPROPion SR 100 MG TABCR PO SCH (09:09)
[2022-03-11] MEDS: ZINC SULFATE 220 MG CAPSULE PO SCH (09:09)
[2022-03-11] MEDS: DOXYCYCLINE HYCLATE 100 MG CAP PO SCH ×2 (09:09→16:32)
[2022-03-11] MEDS: INSULIN ASPART PER UNIT SC SCH ×3 (09:15→17:47)
[2022-03-11] MEDS: OMEGA-3 (PURIFIED FISH OIL) 1 GM CAP PO SCH (10:29)
[2022-03-11] MEDS: MAGNESIUM OXIDE 400 MG TAB PO SCH (10:29)
[2022-03-11] MEDS ORDERED: MAGNESIUM SULFATE / D5W 1 GM/100 ML BAG IV ONE (10:30)
--- NOTE | 2022-03-11 15:10 | Discharge Summary ---
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 Of note, the patient was recently admitted to [facility] from 02/05/22 to 02/10/22 for nausea, vomiting and elevated LFTS. Per the discharge summary, the patient underwent MRCP and CT of the abdomen and pelvis which were negative. His LFTs were trended and continued to improve throughout his admission. His nausea and vomiting was resolved with PPI and switching to a low fat diet. In the ED the patient was found to be afebrile, hemodynamically stable, and stable on room air. Labs were significant for chronic anemia, potassium of 3.2, mag of 1.6, phos of 2.3, calcium of 8.3, improving AST and ALT compared to previous admission, alk phos of 275 (increased from 224 las admission), and total bili of 1.1 (increased from 0.8 last admission), and INR of 1.4. Chest xray was negative for acute findings. In the ED the patient was given 1g IV mag prior to admission. At the time of the exam the patient was lying comfortably in bed in no acute distress with his sitting bedside. They state that since his discharge his abdominal discomfort, nausea, and vomiting have resolved. However, the patient has experienced approximately 4 falls since being home. He states that he uses a walker or can to normally ambulate. Since being home he has been falling because his right leg has been giving out on him. He denies losing consciousness and hitting his head. From the falls he has experienced lacerations to his left foot and knee, as-well-as right knee pain. He and his deny any seizure like activity before or after his falls. Home Pt/OT have been coming in to work with him but it does not seem to be helping much. I spoke to he and his about the possibility of going to inpatient rehab to improve his strength and they are both in agreement now that he has been falling. When asked about his current diet he states that he has been eating mostly fish, chicken, broccoli, and spinach; I spoke to him about the importance of limiting the amount of green- leafy vegetables while on [place] and he acknowledged the importance. Principal Diagnosis 1. falls 2. right knee pain - 2nd advanced OA + pseudogout 3. ambulatory dysfunction 2nd to #2 4. skin abrasion/laceration to left samano and left foot 2nd to fall 5. SWIFT cirrhosis 6. a.fib/flutter - on chronic coumadin Discharge Exam gen - obese, NAD neck - no JVD mouth - MMM heart - RRR, s1 s2, no murmur lungs - CTA b/l abd - soft NT ND BS+ ext - 1+ ankle edema, pulses 2+ b/l skin - skin abrasion just below L knee - clean, no drainage; cut in between 4/5th toes on left foot - clean, no drainage, no cellulitis musculo - large right knee effusion but perhaps slightly improved from prior exams; mildly warm to touch but not hot or erythematous - and slightly less warm today vs prior exams Discharge Data Allergies Allergy/AdvReac Type Severity Reaction Status Date / Time simvastatin AdvReac Intermediate GI UPSET- Verified 02/23/22 15:00 OK WITH LIPITOR pioglitazone AdvReac Mild GI UPSETS Verified 02/23/22 15:00 spironolactone AdvReac Mild NIPPLES Verified 02/23/22 15:00 HURT Consultations Orthopedic Surgery - Dr Gianni Westfall PT OT Ordered Studies Chest X-Ray 03/03/22 15:43 XR chest 1V portable CLINICAL HISTORY: Frequent falls, weakness TECHNIQUE: Single frontal radiograph of the chest was obtained. Comparison: Comparison is made to chest radiograph 12/28/2021 FINDINGS: Median sternotomy wires are unchanged. Fractured superior wires again noted. Cardiomegaly is noted. The lungs are clear. No evidence of pleural effusion or pneumothorax. IMPRESSION: No acute chest disease. ACT 112: Negative or not required by law. Electronically signed by: Sebastian Bower M.D. 03/03/2022 4:28 PM Knee X-Ray 03/03/22 19:35 XR knee RT 3V CLINICAL HISTORY: fall with right nee pain/swelling TECHNIQUE: 3 views of the right knee were obtained. Comparison: Comparison is made to right knee radiograph 11/13/[address] 11/13/2021 FINDINGS: Again noted are severe degenerative changes in the knee. There is a large suprapatellar effusion. Again noted are severe degenerative changes of the knee joint with mild fragmentation of the patella. The bones are osteopenic. Within these limitations, no definite acute fracture is seen. Soft tissue swelling is seen. IMPRESSION: Interval development of large suprapatellar effusion. Evaluation for acute fracture is limited by severe degenerative changes and fragmentation, however there is no definite acute fracture. If there is clinical concern, CT can be performed. ACT 112: Negative or not required by law. Electronically signed by: Sebastian Bower M.D. 03/03/2022 8:[address] 03/03/22 21:48 CT SCAN OF THE RIGHT KNEE WITHOUT IV CONTRAST CLINICAL HISTORY: Joint effusion. COMPARISON STUDY: Radiographs of the right knee dated 03/03/2022. CT of the right knee dated 11/13/2021. TECHNIQUE: CT scan of the right knee is performed from the distal femur to the proximal tibia and fibula. Images are reviewed in the axial, sagittal, and coronal planes. IV contrast was not administered for this examination. A dose lowering technique was utilized adhering to the principles of ALARA. CT DOSE: 360.37 mGy.cm FINDINGS: The skeletal structures are osteopenic. No acute fracture is identified. There is no bony erosion or periostitis. Moderate to advanced tricompartmental degenerative changes seen in the knee. There is chondrocalcinosis within the medial and lateral compartments. There are large marginal osteophytes and patellar enthesophytes. There is a large joint effusion with numerous calcified joint bodies and overlying synovial thickening. There is soft tissue edema and subcutaneous fluid present around the knee, greatest anteriorly. There is generalized atrophy of the regional musculature. Atherosclerotic calcification is seen in the regional arteries. IMPRESSION: 1. There is no evidence of acute fracture. 2. Osteopenia with advanced degenerative change and chondrocalcinosis as above. 3. There is a large joint effusion with numerous calcified joint bodies and overlying synovial thickening. The sterility of this fluid cannot be assessed by imaging. Clinical correlation will be required. 4. Soft tissue edema and subcutaneous fluid is seen around the knee, greatest anteriorly. ACT 112: Negative or not required by law. Dictated: 03/04/2022 10:34 AM Transcribed: 03/04/2022 10:54 AM Maryann [id number] RUPERT_Hussein Electronically signed by: Ronal Brady M.D. 03/04/2022 11:01 AM Hospital Course (1) Falls: Presented with multiple falls secondary to chronic right knee pain and severe arthritis causing the knee to give way Sustained lacerations (no suturing needed) to the left knee and left foot due to the falls PT/OT consults placed - both advised rehab - patient and agreeable to rehab Transferring to [facility] for rehab Of note - B12 level was wnl (2) Suprapatellar effusion of knee: RIGHT Chronic and longstanding issue with large effusion on the right and severe osteoarthritis of the right knee Recent imaging with CPPD crystals - could have element of pseudogout Trial of prednisone 10mg daily x 7 days, first dose on 03/09 CRP levels were acceptable while here Knee showed modest improvement while on prednisone course The knee was aspirated by orthopedics a couple of months ago with quick return of effusion unfortunately and no relief with intra-articular steroid injection Too early to get another injection thus attempted the PO prednisone trial as above Orthopedic consult was performed by Dr Gianni Westfall, [facility] Ortho, during this stay Needs either hinged prosthesis surgery or right knee fusion both of which would need to be done at a tertiary care center Patient declined surgery at this time but he was counseled that surgery is an option if he changed his mind Dr Westfall recommended rehab for strengthening in meantime (3) Pseudogout of right knee: possible component of his ongoing right knee issues see #2 above (4) Electrolyte abnormality: low mag and low K - 2nd to frequent stooling from lactulose and from daily lasix usage both electrolytes replaced during the stay he was discharged on potassium & magnesium supplementation upon transfer to SNF (5) Type 2 diabetes mellitus: Hemoglobin A1c 6.5% in 10/2021 and was 6.6% this admission Had some hypoglycemia on the evening of 03/05 and BSGs were often low-normal at other times lantus was reduced to 5 units daily while here he required little to no novolog during the stay even while receiving prednisone for his knee (6) Chronic systolic CHF (congestive heart failure): Compensated during the visit 08/2020 echo with EF 50-55% and RV dysfunction Continue home lasix, Imdur, propranolol, lisinopril, and eplerenone (7) Anemia: Does have a history of thalassemia previous baseline hemoglobin around 11 but now much lower iron studies show iron deficiency with a transferrin saturation mildly low at 14% B12, folate both normal s/p IV Venofer 300 Mg daily x3 doses while here Had recent EGD in 01/2022 with grade 3 esophageal varices and portal gastropathy Colonoscopy many years ago No obvious GI bleeding Hb 8.9 on 03/09/22 at time of discharge (8) Depression: Continue home bupropion (9) PAF (paroxysmal atrial fibrillation): Admission EKG with NSR. He examined in NSR throughout the stay. Continue home diltiazem, propranolol. INR was quite labile throughout his stay, likely due to liver dysfunction from SWIFT. INR on day of discharge was 2.7. Coumadin dosing recommendations at discharge - 7.5mg on Tuesday, , and Tuesday; 5mg on Tuesday, Tuesday, Tuesday, and Tuesday. He should have daily INRs for several days post-discharge to ensure stability of his INR with INR goal of 2-3. (10) Nocturnal hypoxemia: Patient hadn't been using CPAP at home. CPAP was ordered for him while here. Continue CPAP 9cm H20 at [facility]. (11) CAD (coronary artery disease): With a history of redo CABG in 2010. No acute issues while here. Not on aspirin presumably due to being on Coumadin and with a history of cirrhosis and esophageal varices and portal gastropathy. Continue propranolol, isosorbide, lisinopril, lasix, warfarin. (12) Severe obstructive sleep apnea: Continue CPAP at nighttime, 9cm H20. 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 Continue BID Doxycycline 100 mg PO for chronic suppression/prophylaxis. (14) Hyperlipidemia: Continue Zetia Not on statin therapy - presumably due to cirrhosis? tolerated lipitor in past per records (15) Cirrhosis of liver not due to alcohol: 2nd SWIFT. With known esophageal varices. Continue propranolol. Continue rifaximin. Continue lactulose with BM goal 2-3/day. Follow with GI as an outpatient for routine surveillance. Volume status was acceptable during the stay. (16) Morbid obesity with BMI of 40.0-44.9, adult: BMI 41.8 Plan patient transferring to [facility] for rehab Total Time Total Time Spent Total Time Spent (In Minutes): 40 Discharge Plan Discharge Items Patient Disposition: Transfer Group Home Fac Reason For Visit: FALL Discharge Diagnosis: 1. fall with resulting abrasion on left knee region and on left foot 2. severe right knee arthritis 3. pseudogout of right knee 4. cirrhosis of the liver 5. h/o esophageal varices 6. elevated INR - resolved; discharge INR 2.7 7. hypomagnesemia 8. h/o osteomyelitis of the lumbar spine - on chronic doxycycline antibiotic suppression 9. PAF 10. CAD 11. type 2 diabetes 12. ALDO - on CPAP 9cm H20 Activity: Resume your previous activity Activity Comment: weight-bear as tolerated on RLE with knee brace in place Non-emergency contact: Primary Care Provider and Surgeon Call non-emergency contact if: you have any medication questions and your symptoms worsen Follow-up/Referrals: Wayne Florez DO [Primary Care Provider] - Gianni Westfall DO [Physician] - (2-3 weeks - for right knee advanced arthritis ) Diet: Carb Consistent or DM2 and Heart Healthy Fluids: 1500ml (6 cups) Addtl Attending Provider Instructions: Mr Herring was hospitalized after having falls - likely due to severe right knee arthritis. He was seen by Dr Gianni Westfall, [facility] Orthopedics, for the right knee. Electrolyte disturbances (low K, low mag) were replaced. Coumadin was adjusted as necessary to maintain therapeutic range of 2-3. PT/OT both advised rehab - transferring to [facility] for rehab. Recommendations - 1. check BSGs ac/hs 2. recheck BMP, CBC, and magnesium in 3-4 days for stability 3. starting AM of 03/12/22 please check an INR daily for at least 3-4 days as his INR levels have been fluctuating considerably throughout his stay - likely due to his cirrhosis; discharge INR is 2.7. INR goal range is 2-3. 4. f/u with Dr Westfall in 2-3 weeks for RIGHT knee 5. limit fluid intake to no more than 1500cc in 24 hours 6. daily standing scale weights - notify director of medical services of any weight gain of more than 2-3 pounds over 1-2 days 7. patient should have 2-3 bowel movements each day. If having less than this amount please notify director of medical services 8. CPAP for ALDO - use at bedtime & for long naps - CPAP 9cm H2O, room air Pending Studies at Discharge: No Stand-Alone Forms: My [facility] Skilled Items Patient informed of condition?: Yes DNR: No Discharge Level of Care: Skilled Communicable Disease: No Discharge Prognosis: Stable Lines: None Urinary Catheter: No Medications and DC Order Prescriptions: New potassium chloride 20 mEq Tablet,Er Particles/Crystals 20 meq PO DAILY Qty: 30 2RF magnesium oxide 400 mg (241.3 mg magnesium) Tablet 400 mg PO BID Qty: 60 0RF warfarin 5 mg tablet 5 mg PO DIRECTED Qty: 60 0RF Rx Instructions: take 5mg Tuesday/Tuesday/Tuesday/Tuesday only. warfarin 7.5 mg tablet 7.5 mg PO DIRECTED Qty: 60 0RF Rx Instructions: take 7.5mg PO Tuesday//Tuesday. Continued isosorbide mononitrate 120 mg tablet extended release 24 hr 120 mg PO QPM Qty: 90 1RF ezetimibe 10 mg tablet 10 mg PO QPM 90 Days Qty: 90 1RF nitroglycerin 0.6 mg tablet, sublingual 0.6 mg Sublingual DIRECTED PRN (Reason: Chest Pain) Qty: 25 1RF duloxetine 60 mg capsule,delayed release(DR/EC) 60 mg PO QAM Qty: 90 1RF eplerenone 25 mg tablet 25 mg PO QAM 90 Days Qty: 90 1RF Rx Instructions: pantoprazole 40 mg tablet,delayed release (DR/EC) 40 mg PO BID Qty: 180 1RF bupropion HCl [Wellbutrin SR] 100 mg tablet sustained-release 12 hr 100 mg PO QAM Qty: 90 1RF dutasteride [Avodart] 0.5 mg capsule 0.5 mg PO HS Qty: 90 1RF furosemide 40 mg tablet 80 mg PO QAM Qty: 180 1RF doxycycline monohydrate 100 mg capsule 100 mg PO BIDM Qty: 180 1RF diltiazem HCl 180 mg capsule,extended release 24 hr 180 mg PO QAM Qty: 90 1RF gabapentin 300 mg capsule 300 mg PO TID Qty: 270 3RF omega-3 acid ethyl esters 1 gram capsule 1 cap PO BID Qty: 180 1RF propranolol 10 mg tablet 10 mg PO TID Qty: 270 1RF Xifaxan 550 mg tablet 550 mg PO TID Qty: 270 1RF vitamin B complex Capsule 1 cap PO DAILY tamsulosin 0.4 mg capsule 0.4 mg PO HS 90 Days Qty: 90 3RF multivitamin tablet 1 tab PO QAM diclofenac sodium 1 % gel 4 g TOP QID PRN (Reason: Pain) Rx Instructions: apply to single knee, ankle, foot; for foot includes sole/toes/top of foot lactulose 20 gram/30 mL Solution 45 ml PO BID 30 Days Qty: 2700 2RF zinc 50 mg tablet 50 mg PO DAILY Qty: 30 0RF lisinopril 40 mg tablet 20 mg PO DAILY Changed insulin glargine [Lantus Solostar U-100 Insulin] 100 unit/mL (3 mL) insulin pen 5 unit subcut HS 90 Days Qty: 7.2 1RF Discontinued warfarin 7.5 mg tablet 7.5 mg PO [id number] Qty: 90 1RF Protocol: Dose Management Condition: Tuesday (Week One) Dose/Route: 7.5 mg Instruction: 1 x 7.5 mg tablet Condition: Tuesday Dose/Route: 7.5 mg Instruction: 1 x 7.5 mg tablet Condition: Tuesday Dose/Route: 7.5 mg Instruction: 1 x 7.5 mg tablet Condition: Tuesday Dose/Route: 10 mg Instruction: 2 x 5 mg tablets Condition: Dose/Route: 10 mg Instruction: 2 x 5 mg tablets Condition: Tuesday Dose/Route: 5 mg Instruction: 1 x 5 mg tablet Condition: Tuesday Dose/Route: 7.5 mg Instruction: 1 x 7.5 mg tablet Condition: Tuesday (Week Two) Dose/Route: 7.5 mg Instruction: 1 x 7.5 mg tablet Condition: Tuesday Dose/Route: 7.5 mg Instruction: 1 x 7.5 mg tablet Condition: Tuesday Dose/Route: 7.5 mg Instruction: 1 x 7.5 mg tablet Condition: Tuesday Dose/Route: 7.5 mg Instruction: 1 x 7.5 mg tablet Condition: Dose/Route: 7.5 mg Instruction: 1 x 7.5 mg tablet Condition: Tuesday Dose/Route: 5 mg Instruction: 1 x 5 mg tablet Condition: Tuesday Dose/Route: 7.5 mg Instruction: 1 x 7.5 mg tablet Protocol Text: Adjustment Start Date: Tuesday10/28/21 INR Value: 1.5 INR Date: 10/27/21 Recheck Date: 11/11/21 Rx Instructions: Takes at HS warfarin 5 mg tablet 5 mg PO .QFRI Protocol: Dose Management Condition: Tuesday (Week One) Dose/Route: 7.5 mg Instruction: 1 x 7.5 mg tablet Condition: Tuesday Dose/Route: 7.5 mg Instruction: 1 x 7.5 mg tablet Condition: Tuesday Dose/Route: 7.5 mg Instruction: 1 x 7.5 mg tablet Condition: Tuesday Dose/Route: 10 mg Instruction: 2 x 5 mg tablets Condition: Dose/Route: 10 mg Instruction: 2 x 5 mg tablets Condition: Tuesday Dose/Route: 5 mg Instruction: 1 x 5 mg tablet Condition: Tuesday Dose/Route: 7.5 mg Instruction: 1 x 7.5 mg tablet Condition: Tuesday (Week Two) Dose/Route: 7.5 mg Instruction: 1 x 7.5 mg tablet Condition: Tuesday Dose/Route: 7.5 mg Instruction: 1 x 7.5 mg tablet Condition: Tuesday Dose/Route: 7.5 mg Instruction: 1 x 7.5 mg tablet Condition: Tuesday Dose/Route: 7.5 mg Instruction: 1 x 7.5 mg tablet Condition: Dose/Route: 7.5 mg Instruction: 1 x 7.5 mg tablet Condition: Tuesday Dose/Route: 5 mg Instruction: 1 x 5 mg tablet Condition: Tuesday Dose/Route: 7.5 mg Instruction: 1 x 7.5 mg tablet Protocol Text: Adjustment Start Date: Tuesday10/28/21 INR Value: 1.5 INR Date: 10/27/21 Recheck Date: 11/11/21 Rx Instructions: 5 mg daily Discharge Orders: Discharge Order (Routine); Ordered 03/11/22 Ordered By: Dirk Brar/Other Patient Handouts: Managing Type 2 Diabetes Admission Data Admit Date/Time: 03/06/22 08:31 Attending Provider: Dirk Ferro Admit Provider: Ileana Benz Primary Care Provider: Wayne Florez Other Providers: Dirk English ; [facility] ; [facility] ; Gianni Westfall Other Interventions: Discharge Summary Assessment (RN) Last Done: 03/11/22 16:44 Coding Level of Care Code D/C DAY MANAGEMENT >30 MINS Diagnoses Falls W19.XXXA Suprapatellar effusion of knee M25.469 Pseudogout of right knee M11.261 Electrolyte abnormality E87.8 Type 2 diabetes mellitus E11.9 Chronic systolic CHF (congestive heart failure) I50.22 Anemia D64.9 Depression F32.9 PAF (paroxysmal atrial fibrillation) I48.0 Nocturnal hypoxemia G47.34 CAD (coronary artery disease) I25.10 Severe obstructive sleep apnea G47.33 Infection of lumbar spine M86.9 Hyperlipidemia E78.5 Cirrhosis of liver not due to alcohol K74.60 Morbid obesity with BMI of 40.0-44.9, adult E66.01; Z68.41
[2022-03-11] MEDS ORDERED: WARFARIN SOD 5 MG TAB PO SCH (16:00)
== END 2022-03-11 17:56 | DRG 92 ==
LOC: ED 15:31 → 3E 15:31 → SUATTDRO 20:37 → 3E 20:49 → SUATTDRO 03-06 08:31